=== PATIENT | male | born 1955 | race African-American/Black ===

== ENCOUNTER 2020-04-27 15:56 | Inpatient (IN) | payer OTHER ==
--- NOTE | 2020-04-27 16:25 | PDOC ---
History of Present Illness - History of Present Illness Initial Comments: Pt is a 64yo M with PMH ESRD on HD MWF, HLD, GERD, HTN, nonverbal, on trach who was sent from [facility] for anemia. Pt's H&H was low today during dialysis. He had one hour left of dialysis before he was sent here. Spoke with patients daughter - Pt was hospitalized for Covid on December 20 at [facility] in [place]. Prior to his admission, he was otherwise healthy, with PMH of HTN. During his hospital course, he developed sepsis, multiple strokes, and ESRD requiring HD. Pt's daughter denies hx of anemia, history of GI bleeds. She states that he required a transfusion while he was at [facility], but was unable to state the reason. PMH: see above Meds: see chart Allergies: NKDA Review of Systems: unable to perform Physical Exam General: in no acute distress Head: normocephalic, atraumatic Eyes: anicteric sclera, conjunctiva clear ENT: Auricles normal inspection, nares patent, OG tube in place Neck: supple, no LAD, JVD or masses Lung: equal breath sounds b/l, CTA b/l, no crackles, wheezes Heart: RRR, normal S1, S2, no murmurs, rubs, gallops Abdomen: soft, non tender, normoactive bowel sounds Extremities: warm, well perfused, 2+ radial pulses Neuro: non-verbal at baseline Skin: warm, dry, no rashes or lesions noted <Vicenta Randall - Last Filed: 04/27/20 22:34> <Anmol Hickey - Last Filed: 05/02/20 12:37> - General Stated Complaint: RESPIRATORY Time Seen by Provider: 04/27/20 16:20 Past History <Vicenta Randall - Last Filed: 04/27/20 22:34> <Anmol Hickey - Last Filed: 05/02/20 12:37> - Medical History Allergies/Adverse Reactions: Allergies Allergy/AdvReac Type Severity Reaction Status Date / Time No Known Allergies Allergy Verified 04/27/20 17:19 Home Medications: Ambulatory Orders Acetaminophen [Tylenol] 650 mg GT Q6H PRN 04/27/20 Albuterol 2.5/Ipratropium 0.5 [Duoneb -] 1 neb IH QID 04/27/20 Atorvastatin Ca [Lipitor] 40 mg GT HS 04/27/20 Calcium Acetate 667 mg GT TID 04/27/20 Esomeprazole Magnesium [Nexium 24Hr] 40 mg GT DAILY 04/27/20 Levetiracetam 500 mg GT DAILY 04/27/20 Levetiracetam [Spritam] 250 mg GT 04/27/20 Metoprolol Tartrate [Lopressor -] 12.5 mg GT BID 04/27/20 Midodrine HCl 10 mg GT TID 04/27/20 Polyethylene Glycol 3350 [Clearlax] 17 gm GT DAILY 04/27/20 Sennosides [Senna] 17.2 mg GT HS 04/27/20 *Physical Exam - Vital Signs Last Vital Signs Temp Pulse Resp BP Pulse Ox 22 H 04/27/20 16:05 <Vicenta Randall - Last Filed: 04/27/20 22:34> - Vital Signs Last Vital Signs Temp Pulse Resp BP Pulse Ox 97.4 F L 101 H 22 H 171/77 H 100 05/02/20 10:00 05/02/20 10:00 05/02/20 10:00 05/02/20 10:00 05/02/20 10:00 <Anmol Hickey - Last Filed: 05/02/20 12:37> ED Treatment Course - LABORATORY CBC & Chemistry Diagram: 04/27/20 16:22 04/27/20 18:43 <Vicenta Randall - Last Filed: 04/27/20 22:34> - LABORATORY CBC & Chemistry Diagram: 05/02/20 10:50 05/02/20 09:00 - ADDITIONAL ORDERS Additional order review: 04/27/20 16:22 RBC 2.81 L MCV 76.5 L MCHC 30.5 L RDW 18.4 H MPV 6.8 L Neutrophils % 78.9 Lymphocytes % 12.6 Monocytes % 5.5 Eosinophils % 2.5 Basophils % 0.5 - Medications Given in the ED: ED Medications Discontinued Medications Generic Name Dose Route Start Last Admin Trade Name Freq PRN Reason Stop Dose Admin Epoetin Ricky 20,000 unit 05/01/20 08:00 05/01/20 09:25 Procrit - IVPUSH 05/01/20 08:01 20,000 unit ONCE ONE Administration Potassium Chloride 10 meq in 100 mls @ 100 mls/hr 04/27/20 21:30 04/28/20 00:30 Potassium Chloride 10 Meq Premix Ivpb - IVPB 04/28/20 00:29 100 mls/hr Q60M HEBERT Administration Piperacillin Sod/Tazobactam 50 mls @ 100 mls/hr 04/27/20 22:30 04/28/20 14:53 Sod 2.25 gm/ Dextrose IVPB 04/28/20 14:59 100 mls/hr Q8H HEBERT Administration Protocol Potassium Chloride 10 meq in 100 mls @ 100 mls/hr 04/28/20 11:15 04/28/20 14:53 Potassium Chloride 10 Meq Premix Ivpb - IVPB 04/28/20 14:14 100 mls/hr Q60M HEBERT Administration Dextrose/Sodium Chloride 40 meq in 1,000 mls @ 50 mls/hr 04/28/20 11:15 04/30/20 11:52 D5-1/2ns+40 Meq Kcl - IV Not Given ASDIR HEBERT Potassium Chloride 10 meq in 100 mls @ 100 mls/hr 04/29/20 11:15 04/29/20 14:31 Potassium Chloride 10 Meq Premix Ivpb - IVPB 04/29/20 13:14 100 mls/hr Q60M HEBERT Administration Iron Sucrose 200 mg/ Sodium 100 mls @ 100 mls/hr 04/29/20 16:10 04/29/20 18:12 Chloride IVPB 04/29/20 17:09 100 mls/hr ONCE ONE Administration Metoprolol Tartrate 12.5 mg 04/28/20 10:00 05/02/20 11:16 Lopressor - GT 12.5 mg BID HEBERT Administration Metoprolol Tartrate 12.5 mg 04/28/20 00:56 04/28/20 01:28 Lopressor - GT 04/28/20 00:57 12.5 mg ONCE ONE Administration Metoprolol Tartrate 12.5 mg 04/30/20 20:01 04/30/20 20:14 Lopressor - PO 04/30/20 20:02 12.5 mg ONCE ONE Administration Metoprolol Tartrate 12.5 mg 05/02/20 11:54 05/02/20 12:30 Lopressor - GT 05/02/20 11:55 12.5 mg ONCE ONE Administration Potassium Chloride 40 meq 04/29/20 13:07 04/29/20 13:48 Potassium Chloride Oral Liquid GT 04/29/20 13:08 Not Given ONCE ONE Potassium Chloride 40 meq 04/30/20 13:45 04/30/20 13:57 Potassium Chloride Oral Liquid PO 04/30/20 13:46 40 meq ONCE ONE Administration <Ruperto,Anmol - Last Filed: 05/02/20 12:37> Medical Decision Making - Medical Decision Making Pt is a 64yo M with PMH ESRD on HD MWF, HLD, GERD, HTN, comatose, on trach who was sent from [facility] for anemia. Vital Signs Period Temp Pulse Resp BP Sys/Pimentel Pulse Ox Last 24 Hr 98.2 F 108 18-22 140/95 100-100 DDx: UGIB, LGIB, anemia Plan: labs, EKG, CXR EKG: HR 106bpm, sinus tachycardia with occasional PVC, NJ 174ms, QRS 92ms, QTc 398ms, nonspecific T wave abnormality CXR: diffuse patchiness on R side 04/27/20 18:17 Hgb 6.6, verbal consent for transfusion obtained from daughter, Trenton Kwon Will transfuse 2U pRBC Repeat BMP, Mg Pending stool occult Laboratory Tests 04/27/20 04/27/20 04/27/20 16:22 16:22 16:22 WBC 12.0 H RBC 2.81 L Hgb 6.6 L* Hct 21.5 L MCV 76.5 L MCH 23.3 L MCHC 30.5 L RDW 18.4 H Plt Count 562 H MPV 6.8 L Absolute Neuts (auto) 9.5 H Neutrophils % 78.9 Lymphocytes % 12.6 Monocytes % 5.5 Eosinophils % 2.5 Basophils % 0.5 Nucleated RBC % 0 PT with INR 12.50 INR 1.06 Sodium 135 L Potassium 3.2 L Chloride 94 L Carbon Dioxide 30 Anion Gap 11 BUN 38.8 H Creatinine 1.7 H Est GFR (CKD-EPI)AfAm 49.00 Est GFR (CKD-EPI)NonAf 42.28 Random Glucose 92 Calcium 9.7 Magnesium Total Bilirubin 0.5 AST 14 L ALT 13 Alkaline Phosphatase 143 H Total Protein 7.8 Albumin 2.2 L Stool Occult Blood Blood Type Antibody Screen Crossmatch 04/27/20 04/27/20 04/27/20 16:22 16:30 18:43 WBC RBC Hgb Hct MCV MCH MCHC RDW Plt Count MPV Absolute Neuts (auto) Neutrophils % Lymphocytes % Monocytes % Eosinophils % Basophils % Nucleated RBC % PT with INR INR Sodium 135 L Potassium 2.7 L* Chloride 95 L Carbon Dioxide 29 Anion Gap 11 BUN 40.1 H Creatinine 1.8 H Est GFR (CKD-EPI)AfAm 45.73 Est GFR (CKD-EPI)NonAf 39.46 Random Glucose 83 Calcium 9.5 Magnesium 2.2 Total Bilirubin AST ALT Alkaline Phosphatase Total Protein Albumin Stool Occult Blood Blood Type AB POSITIVE AB POSITIVE Antibody Screen Negative Crossmatch See Detail 04/27/20 18:59 WBC RBC Hgb Hct MCV MCH MCHC RDW Plt Count MPV Absolute Neuts (auto) Neutrophils % Lymphocytes % Monocytes % Eosinophils % Basophils % Nucleated RBC % PT with INR INR Sodium Potassium Chloride Carbon Dioxide Anion Gap BUN Creatinine Est GFR (CKD-EPI)AfAm Est GFR (CKD-EPI)NonAf Random Glucose Calcium Magnesium Total Bilirubin AST ALT Alkaline Phosphatase Total Protein Albumin Stool Occult Blood Negative Blood Type Antibody Screen Crossmatch Stool occult negative; repeat K 2.7; Mg WNL 04/27/20 20:21 Will repeat K Disposition Admit <Vicenta Randall - Last Filed: 04/27/20 22:34> Discharge - Discharge Information Problems reviewed: Yes - Admission Yes <Vicenta Randall - Last Filed: 04/27/20 22:34> <Anmol Hickey - Last Filed: 05/02/20 12:37> - Discharge Information Clinical Impression/Diagnosis: Hypokalemia Anemia Qualifiers: Anemia type: other cause Other causes of anemia: other cause, not classified Qualified Code(s): D64.89 - Other specified anemias
[2020-04-27 17:02] LABS: BASO % 0.5 % (0-2.0); EOS % 2.5 % (0-4.5); HEMATOCRIT 21.5 % (35.4-49); LYMPH % 12.6 % (8-40); MCH 23.3 pg (25.7-33.7); MCHC 30.5 g/dl (32.0-35.9); MEAN CELL VOLUME 76.5 fl (80-96); MEAN PLT VOLUME 6.8 fl (7.5-11.1); MONO % 5.5 % (3.8-10.2); NEUT % 78.9 % (42.8-82.8); PLATELET COUNT 562 K/MM3 (134-434); RBC 2.81 M/mm3 (4.00-5.60); RDW 18.4 % (11.9-15.9)
[2020-04-27 17:05] LABS: HEMOGLOBIN 6.6 GM/dL (11.7-16.9)
[2020-04-27 17:10] LABS: INR 1.06 (0.83-1.09); PROTHROMBIN TIME (PATIENT) 12.5 SEC (9.7-13.0)
[2020-04-27 17:14] LABS: ALBUMIN 2.2 g/dl (3.4-5.0); BILIRUBIN,TOTAL 0.5 mg/dL (0.2-1); BLOOD UREA NITROGEN 38.8 mg/dL (7-18); CALCIUM 9.7 mg/dL (8.5-10.1); CREATININE 1.7 mg/dL (0.55-1.3); POTASSIUM 3.2 mmol/L (3.5-5.1); TOT PROT 7.8 g/dl (6.4-8.2)
--- NOTE | 2020-04-27 17:31 | PDOC ---
Attending Attestation - Resident Resident Name: Donna Randalla - ED Attending Attestation I have performed the following: I have examined & evaluated the patient, The case was reviewed & discussed with the resident, I agree w/resident's findings & plan, Exceptions are as noted - HPI HPI: 04/27/20 17:45 64y M hx of nathaniel MENDOZA trach/PEG presents c/b multiple strokes, renal failure (MWF, missed today) for evaluation of anemia. history limited due to pt condition. - Physicial Exam PE: 04/27/20 17:54 GENERAL: The patient is in no distress HEAD: Normocephalic, atraumatic. ENT: trach in place NECK: Normal range of motion, supple LUNGS: Breath sounds equal, clear to auscultation bilaterally. HEART: Regular rate and rhythm, ABDOMEN: Soft, nontender, No guarding, no rebound. No CVA tenderness - Medical Decision Making 04/27/20 17:54 consented for tranfusion from pts daughter pts hg 6.6 will transfuse Heart Score/ECG Review - ECG Impressions Comment:: 04/27/20 17:58 Twelve-lead EKG was performed and reviewed by me. There is normal sinus rhythm with rate of 106 pvcs present nospecific twi Discharge - Discharge Information Problems reviewed: Yes Clinical Impression/Diagnosis: Hypokalemia Anemia Qualifiers: Anemia type: other cause Other causes of anemia: other cause, not classified Qualified Code(s): D64.89 - Other specified anemias - Follow up/Referral - Patient Discharge Instructions - Post Discharge Activity
[2020-04-27 19:34] LABS: BLOOD UREA NITROGEN 40.1 mg/dL (7-18); CALCIUM 9.5 mg/dL (8.5-10.1); CREATININE 1.8 mg/dL (0.55-1.3); MAGNESIUM 2.2 mg/dL (1.8-2.4)
--- NOTE | 2020-04-27 19:51 | HP ---
Admitting History and Physical - Primary Care Physician PCP: Charlie Pizano ([facility]) - Admission Chief Complaint: Abnormal Lab Value History of Present Illness: This is a 64 y/o male from [facility] with a PMHx of ESRD (HD- MWF), Chronic Respiratory Failure s/p Trach- Vent dependent, CVA, HTN, HLD, GERD, Pneumonia, Sepsis, Covid + (12/21/19). Who presents to the ED for low H/H x 2 days. Per [place] records patient's Hgb was 7.5. Patient is trach- vent dependent (non-verbal) unable to provide HPI. In the ED Hgb was 6.6, Stool Occult negative. PRBCs x2 o rdered. History Source: Transfer Record Limitations to Obtaining History: Clinical Condition - Past Medical History Cardiovascular: Yes: HTN, Hyperlipdemia Pulmonary: Yes: O2 Dependent (Trach- Vent), Pneumonia Gastrointestinal: Yes: GERD Renal/: Yes: Renal Failure, Hemodialysis Infectious Disease: Yes: Other (Covid) - Past Surgical History Additional Past Surgical History: Tracheotomy - Advance Directives Advance Directives: Yes: Health Care Proxy - Smoking History Smoking history: Unknown if ever smoked - Alcohol/Substance Use Hx Alcohol Use: No (Unknown hx) History of Substance Use: reports: None (Unknown hx) - Social History Usual Living Arrangement: Yes: Senior Care ADL: Support Services History of Recent Travel: No Home Medications - Allergies Allergies/Adverse Reactions: Allergies Allergy/AdvReac Type Severity Reaction Status Date / Time No Known Allergies Allergy Verified 04/27/20 17:19 - Home Medications Home Medications: Ambulatory Orders Acetaminophen [Tylenol] 650 mg GT Q6H PRN 04/27/20 Albuterol 2.5/Ipratropium 0.5 [Duoneb -] 1 neb IH QID 04/27/20 Atorvastatin Ca [Lipitor] 40 mg GT HS 04/27/20 Calcium Acetate 667 mg GT TID 04/27/20 Esomeprazole Magnesium [Nexium 24Hr] 40 mg GT DAILY 04/27/20 Levetiracetam 500 mg GT DAILY 04/27/20 Levetiracetam [Spritam] 250 mg GT 04/27/20 Metoprolol Tartrate [Lopressor -] 12.5 mg GT BID 04/27/20 Midodrine HCl 10 mg GT TID 04/27/20 Polyethylene Glycol 3350 [Clearlax] 17 gm GT DAILY 04/27/20 Sennosides [Senna] 17.2 mg GT HS 04/27/20 Family Medical History Family History: Unable to Obtain Review of Systems Unable to obtain ROS, reason: Clinical Condition Physical Examination Vital Signs: Vital Signs Temperature 98.7 F 04/27/20 19:16 Pulse Rate 106 H 04/27/20 19:16 Respiratory Rate 20 04/27/20 19:16 Blood Pressure 153/82 04/27/20 19:16 O2 Sat by Pulse Oximetry (%) 100 04/27/20 19:21 Constitutional: Yes: Well Nourished, Obese, Other (Trach- vent dependent Opens eyes non-verbal) Eyes: Yes: Conjunctiva Clear, PERRL HENT: Yes: Atraumatic, Normocephalic Neck: Yes: Supple, Other (Trach-vent dependent) Cardiovascular: Yes: Tachycardia, Pulse Irregular, S1, S2 Respiratory: Yes: Diminished (bases), Rhonchi (scattered), Other (Trach- Vent) Gastrointestinal: Yes: Soft, Abdomen, Obese, Other (peg noted to upper abd- intact) ...Rectal Exam: Yes: Guaiac Negative Breast(s): Yes: WNL Extremities: Yes: WNL Edema: LLE: 1+, RLE: 1+ Peripheral Pulses WNL: Yes Integumentary: Yes: Pressure Ulcer (sacrum) Neurological: Yes: Aphasia, Pre-Existing Deficit Psychiatric: Yes: Other (eyes open- non-verbal) Labs: CBC, BMP 04/27/20 16:22 04/27/20 18:43 Imaging - Results Chest X-ray: Image Reviewed EKG: Image Reviewed Problem List - Problems (1) Anemia Code(s): D64.9 - ANEMIA, UNSPECIFIED Qualifiers: Anemia type: other cause Other causes of anemia: other cause, not classified Qualified Code(s): D64.89 - Other specified anemias (2) Pneumonia Code(s): J18.9 - PNEUMONIA, UNSPECIFIED ORGANISM (3) Chronic respiratory failure Code(s): J96.10 - CHRONIC RESPIRATORY FAILURE, UNSP W HYPOXIA OR HYPERCAPNIA (4) ESRD (end stage renal disease) on dialysis Code(s): N18.6 - END STAGE RENAL DISEASE; Z99.2 - DEPENDENCE ON RENAL DIALYSIS (5) HTN (hypertension) Code(s): I10 - ESSENTIAL (PRIMARY) HYPERTENSION (6) HLD (hyperlipidemia) Code(s): E78.5 - HYPERLIPIDEMIA, UNSPECIFIED (7) GERD (gastroesophageal reflux disease) Code(s): K21.9 - GASTRO-ESOPHAGEAL REFLUX DISEASE WITHOUT ESOPHAGITIS (8) Encounter for screening laboratory testing for COVID-19 virus Code(s): Z11.59 - ENCOUNTER FOR SCREENING FOR OTHER VIRAL DISEASES Assessment/Plan This is a 64 y/o male from [facility] with a PMHx of ESRD (HD- MWF), Chronic Respiratory Failure s/p Trach- Vent dependent, CVA, HTN, HLD, GERD, Pneumonia, Sepsis, Covid + (12/21/19). Admitted to M/S Vent floor for Anemia, Pneumonia, Hypokalemia, ESRD, Chronic Respiratory Failure for further evaluation of their emergent condition. Plan: Admit Vent floor 1. Pulm Chronic Respiratory Failure Pneumonia Will treat for VAP vs HAP [id number] 3, severe risk Continue NH vent settings ABG-pending Appreciate Pulmonology consult Appreciate ID consult Chest Xray- reviewed EKG- reviewed Blood Cultures-pending Sputum Culture-pending Will start on Zosyn renal dosing Monitor CBC Monitor vitals Maintain MAP> 65 Aspiration Precautions 2. Heme Anemia Likely due to GI Bleed vs ESRD PRBCs ordered in ED, transfusing Monitor CBC, CMP Consider Hematology consult Monitor vitals 3. GI GI Bleed GERD Appreciate GI consult Stool Occult + Hgb 6.6 PRBCs ordered Monitor CBC Monitor vitals NPO PPI 4.Cardiology Hypokalemia HTN HLD Replete K- with K riders x3 Monitor CMP EKG-reviewed Continue home meds with parameters 5. Renal ESRD HD- MWF Appreciate Nephrology consult- HD Management Monitor CMP Avoid nephrotoxic meds 6. Neuro CVA Neurochecks Fall Precautions Continue home meds FEN Replete lytes NPO- no tube feeding 2/2 GIB DVT ppx OOB SCDs Hold AC 2/2 GIB, Anemia Dispo: Requires Inpatient Care Visit type - Emergency Visit Emergency Visit: Yes ED Registration Date: 04/27/20 Care time: The patient presented to the Emergency Department on the above date and was hospitalized for further evaluation of their emergent condition. - New Patient This patient is new to me today: Yes Date on this admission: 04/27/20 - Critical Care Critical Care patient: No
[2020-04-27 19:59] LABS: POTASSIUM 2.7 mmol/L (3.5-5.1)
[2020-04-27] MEDS ORDERED: KCL 10 MEQ IVPB 10 MEQ/100 ML INFUS.BAG IVPB ONE ×2 (22:12→23:25)
[2020-04-27] MEDS: KCL 10 MEQ IVPB 10 MEQ/100 ML INFUS.BAG IVPB SCH ×2 (22:16→23:26)
[2020-04-27] MEDS ORDERED: PIPERACILLIN/TAZOB 2.25 GM 2.25 GM/50 ML BAG IVPB ONE (23:30)
[2020-04-28] MEDS: PIPERACILLIN/TAZOB 2.25 GM 2.25 GM in DEXTROSE 5%-WATER - 50 ML IVPB SCH ×4 (00:30→22:41)
[2020-04-28] MEDS: KCL 10 MEQ IVPB 10 MEQ/100 ML INFUS.BAG IVPB SCH ×4 (00:30→14:53)
[2020-04-28] MEDS ORDERED: KCL 10 MEQ IVPB 10 MEQ/100 ML INFUS.BAG IVPB ONE (00:31)
[2020-04-28] MEDS ORDERED: METOPROLOL TARTRATE 25 MG TABLET (FP) GT ONE (00:56)
[2020-04-28] MEDS ORDERED: DEXTROSE 5%-WATER - 50 ML IVPB ONE ×3 (05:51→22:39)
[2020-04-28] MEDS ORDERED: PIPERACILLIN/TAZOBACTAM 2.25 GM VIAL IVPB ONE ×3 (05:51→22:39)
[2020-04-28 07:56] LABS: BASO % 0.6 % (0-2.0); EOS % 4.1 % (0-4.5); HEMATOCRIT 25.1 % (35.4-49); LYMPH % 12.4 % (8-40); MEAN PLT VOLUME 6.5 fl (7.5-11.1); MONO % 11.4 % (3.8-10.2); NEUT % 71.5 % (42.8-82.8); PLATELET COUNT 476 K/MM3 (134-434); RBC 3.22 M/mm3 (4.00-5.60); RDW 18.7 % (11.9-15.9); WHITE BLOOD COUNT 9.6 K/mm3 (4.0-10.0)
[2020-04-28 08:23] LABS: ALBUMIN 1.9 g/dl (3.4-5.0); BILIRUBIN,TOTAL 0.8 mg/dL (0.2-1); BLOOD UREA NITROGEN 45.1 mg/dL (7-18); CALCIUM 9.6 mg/dL (8.5-10.1); CREATININE 2.1 mg/dL (0.55-1.3); TOT PROT 6.8 g/dl (6.4-8.2)
[2020-04-28 09:10] LABS: POTASSIUM 2.9 mmol/L (3.5-5.1)
--- NOTE | 2020-04-28 11:09 | PN ---
Progress Note, Physician History of Present Illness: 64 y/o male from [facility] with a PMHx of ESRD (HD- MWF), Chronic Respiratory Failure s/p Trach- Vent dependent, CVA, HTN, HLD, GERD, Pneumonia, Sepsis, Covid + (12/21/19). Who presents to the ED for low H/H x 2 days. Per [place] records patient's Hgb was 7.5. Patient is trach- vent dependent (non-verbal) unable to provide HPI. In the ED Hgb was 6.6, Stool Occult negative. PRBCs x2 ordered.Received 1 and 1/2 units - Current Medication List Current Medications: Active Medications Atorvastatin Calcium (Lipitor -) 40 mg GT HS HEBERT Piperacillin Sod/Tazobactam (Sod 2.25 gm/ Dextrose) 50 mls @ 100 mls/hr IVPB Q8H-IV HEBERT; Protocol Piperacillin Sod/Tazobactam (Sod 2.25 gm/ Dextrose) 50 mls @ 100 mls/hr IVPB Q8H HEBERT; Protocol Stop: 04/28/20 14:59 Last Admin: 04/28/20 06:14 Dose: 100 mls/hr Documented by: Dextrose/Sodium Chloride (D5-1/2ns+40 Meq Kcl -) 40 meq in 1,000 mls @ 83 mls/hr IV ASDIR HEBERT Potassium Chloride (Potassium Chloride 10 Meq Premix Ivpb -) 10 meq in 100 mls @ 100 mls/hr IVPB Q60M HEBERT Stop: 04/28/20 14:14 Levetiracetam (Keppra Oral Solution -) 500 mg GT DAILY@0600 [facility] Levetiracetam (Keppra Oral Solution -) 250 mg GT TUTHSA@1800 [facility] Metoprolol Tartrate (Lopressor -) 12.5 mg GT BID [facility] - Objective Vital Signs: Vital Signs Temperature 97.9 F 04/28/20 04:45 Pulse Rate 107 H 04/28/20 08:39 Respiratory Rate 20 04/28/20 08:39 Blood Pressure 124/65 04/28/20 04:45 O2 Sat by Pulse Oximetry (%) 99 04/28/20 08:39 Cardiovascular: Yes: S1 Respiratory: Yes: Mechanically Ventilated Gastrointestinal: Yes: Normal Bowel Sounds, Soft Labs: CBC, BMP 04/28/20 07:05 04/28/20 07:05 INR, PTT INR 1.06 (0.83-1.09) 04/27/20 16:22 Problem List - Problems (1) Chronic respiratory failure Assessment/Plan: Appreciate Pulmonology consult Appreciate ID consult Chest Xray- reviewed EKG- reviewed Blood Cultures-pending Sputum Culture-pending Zosyn renal dosing vent setting pulm consult Code(s): J96.10 - CHRONIC RESPIRATORY FAILURE, UNSP W HYPOXIA OR HYPERCAPNIA (2) Anemia Assessment/Plan: Likely due to GI Bleed and ESRD PRBCs Monitor CBC, CMP Consider Hematology consult Monitor vitals Appreciate GI consult Stool Occult + Hgb 6.6 NPO PPI Code(s): D64.9 - ANEMIA, UNSPECIFIED Qualifiers: Anemia type: other cause Other causes of anemia: other cause, not classified Qualified Code(s): D64.89 - Other specified anemias (3) HTN (hypertension) Code(s): I10 - ESSENTIAL (PRIMARY) HYPERTENSION (4) ESRD (end stage renal disease) on dialysis Assessment/Plan: gentle hydration since npo replace k Code(s): N18.6 - END STAGE RENAL DISEASE; Z99.2 - DEPENDENCE ON RENAL DIALYSIS
[2020-04-28] MEDS ORDERED: D5-1/2NS+40 MEQ KCL - 40 MEQ/1,000 ML INFUS.BAG IV SCH (11:15)
--- NOTE | 2020-04-28 11:29 | PN ---
Progress Note (short form) - Note Progress Note: PULMONARY CONSULTATION DICTATED 04/28/20 IMP CHRONIC RESPIRATORY FAILURE H/O COVID 19 H/O PNEUMONIA ANEMIA ESRD ON HD H/O CVA HTN HLD PLAN VENT SUPPORT ON A MODE INHALED BRONCHODILATORS ABX NORMAL TRANSFUSION THRESHOLD MONITOR H+H,LYTES F/U CHEST X-RAYS HD PER RENAL DR LAMAR
[2020-04-28] MEDS: D5-1/2NS+40 MEQ KCL - 40 MEQ/1,000 ML INFUS.BAG IV SCH (12:09)
[2020-04-28] MEDS: levETIRAcetam 500 MG/5 ML ORAL SOLUTION (UNIT-DOSE CUPS) GT SCH ×2 (13:01→17:24)
[2020-04-28] MEDS: METOPROLOL TARTRATE 25 MG TABLET (FP) GT SCH ×2 (13:02→22:41)
--- NOTE | 2020-04-28 13:23 | EKG ---
Test Reason : Blood Pressure : / mmHG Vent. Rate : 106 BPM Atrial Rate : 106 BPM P-R Int : 174 ms QRS Dur : 092 ms QT Int : 300 ms P-R-T Axes : 045 009 133 degrees QTc Int : 398 ms SINUS TACHYCARDIA WITH OCCASIONAL PREMATURE VENTRICULAR COMPLEXES NONSPECIFIC T WAVE ABNORMALITY ABNORMAL ECG NO PREVIOUS ECGS AVAILABLE Confirmed by Brittany Mckeon ([id number]) on 04/28/2020 1:23:18 PM Referred By: Confirmed By:Brittany Mckeon
[2020-04-28 13:33] LABS: EPI CELLS >36 /uL (0-25.1); HYALINE CASTS 1 /uL (0-3.1); PH,URINE 5.5 (5.0-8.0); URINE APPEARANCE TURBID; URINE BACTERIA 9720 /uL (0-1359); URINE BILIRUBIN NEGATIVE (NEGATIVE); URINE COLOR DK YELLOW; URINE GLUCOSE (UA) NEGATIVE (NEGATIVE); URINE KETONE NEGATIVE (NEGATIVE); URINE LEUK ESTERASE 3+ (NEGATIVE); URINE NITRITE NEGATIVE (NEGATIVE); URINE PROTEIN 3+ (NEGATIVE); URINE UROBILINOGEN 0.2 mg/dL (0.2-1.0); URINE WBC 13218 /uL (0-25.8)
--- NOTE | 2020-04-28 13:45 | CON.NEP ---
Consult Consult Specialty:: Nephrology Referred by:: Medicine Reason for Consultation:: ESRD on HD - History of Present Illness Chief Complaint: Low Hgb History of Present Illness: This is a 64 year old male with history of ESRD on HD (MWF), chronic respiratory failure on vent, CVA, hypertension presented from [facility] with low Hgb levels and admitted for acute on chronic anmeia requiring blood transfusion. Seen and examined at the bedside. Last dialysis was yesterday but treatment was cut short due to low Hgb levels. Pt is awake and alert on the vent but not able to provide history. s/p 1.5 PRBC units transfused overnight. - History Source History Provided By: Medical Record Limitations to Obtaining History: Clinical Condition - Past Medical History Cardio/Vascular: Yes: HTN, Hyperlipdemia Pulmonary: Yes: O2 Dependent (Trach- Vent), Pneumonia Gastrointestinal: Yes: GERD Renal/: Yes: Renal Failure, Hemodialysis Infectious Disease: Yes: Other (Covid) - Alcohol/Substance Use Hx Alcohol Use: No (Unknown hx) History of Substance Use: reports: None (Unknown hx) - Smoking History Smoking history: Unknown if ever smoked - Social History ADL: Support Services History of Recent Travel: No Home Medications - Allergies Allergies/Adverse Reactions: Allergies Allergy/AdvReac Type Severity Reaction Status Date / Time No Known Allergies Allergy Verified 04/27/20 17:19 - Home Medications Home Medications: Ambulatory Orders Acetaminophen [Tylenol] 650 mg GT Q6H PRN 04/27/20 Albuterol 2.5/Ipratropium 0.5 [Duoneb -] 1 neb IH QID 04/27/20 Atorvastatin Ca [Lipitor] 40 mg GT HS 04/27/20 Calcium Acetate 667 mg GT TID 04/27/20 Esomeprazole Magnesium [Nexium 24Hr] 40 mg GT DAILY 04/27/20 Levetiracetam 500 mg GT DAILY 04/27/20 Levetiracetam [Spritam] 250 mg GT 04/27/20 Metoprolol Tartrate [Lopressor -] 12.5 mg GT BID 04/27/20 Midodrine HCl 10 mg GT TID 04/27/20 Polyethylene Glycol 3350 [Clearlax] 17 gm GT DAILY 04/27/20 Sennosides [Senna] 17.2 mg GT HS 04/27/20 Family Medical History Family History: Unable to Obtain Review of Systems Unable to obtain ROS, reason: on vent, nonverbal Nephrology Consult - Height Height: 6 ft 2 in - Weight Weight: 130.635 kg - BMI Body Mass Index (BMI): 36.9 - Lab Results CBC,BMP: CBC, BMP 04/28/20 07:05 04/28/20 07:05 Anion Gap: Anion Gap Anion Gap 13 MMOL/L (8-16) 04/28/20 07:05 - Imaging Chest X-ray: Report Reviewed - Physical Examination Vital Signs: Vital Signs Temperature 98.7 F 04/28/20 10:00 Pulse Rate 103 H 04/28/20 10:00 Respiratory Rate 21 H 04/28/20 11:49 Blood Pressure 172/101 H 04/28/20 10:00 O2 Sat by Pulse Oximetry (%) 100 04/28/20 11:49 Constitutional: Yes: No Distress, Calm HENT: Yes: Atraumatic Neck: Yes: Supple Cardiovascular: Yes: Regular Rate and Rhythm Respiratory: Yes: Regular, Diminished, Mechanically Ventilated Gastrointestinal: Yes: Soft, Abdomen, Obese Access for Hemodialysis: Permacath Extremities: No: Cyanosis Edema: Yes Neurological: Yes: Alert Assessment/Plan 64 year old male with history of ESRD on HD (MWF), chronic respiratory failure on vent, CVA, hypertension presented from [facility] with low Hgb levels and admitted for acute on chronic anmeia requiring blood transfusion 1. Acute on chronic anemia 2. ESRD on HD 3. Hypokalemia 4. Chronic respiratory failure on vent 5. Hypertension Hgb improved s/p PRBC transfusion Goal is To keep Hgb ~8 for now, ideally 10-11 Anemia work up as per primary team will continue LUCY/Venofer with Hd as needed No acute need for dialysis today despite abridged treatment yesterday Next planned dialysis is Thursday K supplemented, check repeat level in the afternoon Vent support Amlodipine added for additional blood pressure control Thank you Selvin Gamino DO
--- NOTE | 2020-04-28 13:49 | CONS ---
DATE OF CONSULTATION: 04/28/2020 REFERRING PHYSICIAN: Paul Landin MD HISTORY: History obtained from medical record and chart. The patient is a 64-year-old male with past medical history of chronic respiratory failure status post tracheostomy, ventilator dependent, on assist control; end-stage renal disease on hemodialysis 3 times weekly; history of CVA; hypertension; hyperlipidemia; GERD; pneumonia; sepsis; and COVID-19 on December 21, 2019, was transferred to [facility] on April 27 secondary to low hemoglobin and hematocrit for 2 days. According to the custodial records, her hemoglobin was 7.5. In the ER she was noted to have a hemoglobin 6.6 and subsequently transfused 2 units of packed red blood cells. On admission, he was also noted to have possible infiltrate on chest x-ray. PAST MEDICAL HISTORY: Again includes end-stage renal disease on hemodialysis; chronic respiratory failure status post tracheostomy, ventilator; CVA; hypertension; hyperlipidemia; GERD; pneumonia; sepsis; and COVID-19. CURRENT MEDICATIONS: Include Zosyn, Keppra, Lopressor, sodium chloride, Norvasc, Lipitor, and potassium chloride. REVIEW OF SYSTEMS: Unable to obtain. PHYSICAL EXAMINATION: General: The patient is a well-developed, well-nourished male, drowsy, on ventilatory status post, in no acute distress. Vital Signs: He is afebrile. Blood pressure is 172/101. Heart rate is 103. Respiratory rate is 21. O2 saturation is 100% on 40% FiO2 and assist control of 20, of 450 and PEEP of 5. HEENT: Exam is normocephalic, atraumatic. Neck: Supple. Tracheostomy is patent. Heart: Regular, S1, S2. Chest: Few scattered bilateral rhonchi. Abdomen: Soft. Bowel sounds are positive. Extremities: No cyanosis or edema. LABORATORY: WBCs 9.6, hemoglobin 8, hematocrit is 25.1. BUN 45, creatinine 2.1, potassium 2.9. INR is 1.06. Chest x-ray with bibasilar atelectatic changes. IMPRESSION: 1. Chronic respiratory failure on ventilatory support. 2. History of COVID-19. 3. History of pneumonia. 4. Anemia. 5. End-stage renal disease on hemodialysis. 6. History of a cerebrovascular accident. 7. Hypertension. 8. Hyperlipidemia. PLAN: Ventilator support on assist control mode, inhaled bronchodilators, antibiotics as per ID, normal transfusion threshold. Monitor electrolytes, hemoglobin and hematocrit. Follow up chest x-rays and hemodialysis as per renal. AZUL LAMAR M.D. JESUS/[id number]
[2020-04-28 14:04] LABS: URINE RBC 164.8 /uL (0-23.9); YEAST NONE SEEN (NEGATIVE)
[2020-04-28] MEDS: amLODIPine BESYLATE 5 MG TABLET (FP) GT SCH (14:52)
--- NOTE | 2020-04-28 15:22 | CON.ID ---
Consult Referred by:: dr mccarthy Reason for Consultation:: possible pneumonia - History of Present Illness Chief Complaint: sent to ED with anemia History of Present Illness: 64 yo man NHR with chronic resp failure on vent vai trach sent to ED with anemia noted to have bilateral lower lobe infiltrates and leukocytosis asked to see for possible pneumonia patient unable to give history recent covid 19 infection 12/21/19 - History Source History Provided By: Medical Record Limitations to Obtaining History: Clinical Condition - Past Medical History Cardio/Vascular: Yes: HTN, Hyperlipdemia Pulmonary: Yes: O2 Dependent (Trach- Vent), Pneumonia Gastrointestinal: Yes: GERD Renal/: Yes: Renal Failure, Hemodialysis Infectious Disease: Yes: Other (Covid) - Past Surgical History Additional Surgical History: tracheostomy - Alcohol/Substance Use Hx Alcohol Use: No (Unknown hx) History of Substance Use: reports: None (Unknown hx) - Smoking History Smoking history: Unknown if ever smoked - Social History Usual Living Arrangement: [facility] ADL: Support Services History of Recent Travel: No Home Medications - Allergies Allergies/Adverse Reactions: Allergies Allergy/AdvReac Type Severity Reaction Status Date / Time No Known Allergies Allergy Verified 04/27/20 17:19 - Home Medications Home Medications: Ambulatory Orders Acetaminophen [Tylenol] 650 mg GT Q6H PRN 04/27/20 Albuterol 2.5/Ipratropium 0.5 [Duoneb -] 1 neb IH QID 04/27/20 Atorvastatin Ca [Lipitor] 40 mg GT HS 04/27/20 Calcium Acetate 667 mg GT TID 04/27/20 Esomeprazole Magnesium [Nexium 24Hr] 40 mg GT DAILY 04/27/20 Levetiracetam 500 mg GT DAILY 04/27/20 Levetiracetam [Spritam] 250 mg GT 04/27/20 Metoprolol Tartrate [Lopressor -] 12.5 mg GT BID 04/27/20 Midodrine HCl 10 mg GT TID 04/27/20 Polyethylene Glycol 3350 [Clearlax] 17 gm GT DAILY 04/27/20 Sennosides [Senna] 17.2 mg GT HS 04/27/20 Family Medical History Family History: Unable to Obtain Review of Systems Unable to obtain ROS, reason: unable to obtain - Review of Systems Constitutional: reports: No Symptoms. denies: Chills, Diaphoresis, Fever Physical Exam Vital Signs: Vital Signs Temperature 98.0 F 04/28/20 15:00 Pulse Rate 93 H 04/28/20 15:00 Respiratory Rate 21 H 04/28/20 15:00 Blood Pressure 154/96 04/28/20 15:00 O2 Sat by Pulse Oximetry (%) 98 04/28/20 15:00 Constitutional: Yes: Well Nourished, No Distress, Calm Eyes: Yes: Conjunctiva Clear HENT: Yes: Atraumatic, Normocephalic Neck: Yes: Other (trach to vent) Cardiovascular: Yes: Regular Rate and Rhythm Respiratory: Yes: Regular, Other (left CW permacath) Gastrointestinal: Yes: Normal Bowel Sounds, Soft, Other (GT) ...Rectal Exam: Yes: Deferred Renal/: Yes: Metzger Present (placed in hospital) Extremities: Yes: WNL Edema: No Wound/Incision: Yes: Other (stage 4 sacral ulcer clean) Labs: CBC, BMP 04/28/20 07:05 04/28/20 07:05 Imaging - Results Chest X-ray: Report Reviewed, Image Reviewed Problem List - Problems (1) Anemia Code(s): D64.9 - ANEMIA, UNSPECIFIED Qualifiers: Anemia type: other cause Other causes of anemia: other cause, not classified Qualified Code(s): D64.89 - Other specified anemias (2) Chronic respiratory failure Code(s): J96.10 - CHRONIC RESPIRATORY FAILURE, UNSP W HYPOXIA OR HYPERCAPNIA (3) Pneumonia Code(s): J18.9 - PNEUMONIA, UNSPECIFIED ORGANISM (4) History of 2019 novel coronavirus disease (COVID-19) Code(s): Z86.19 - PERSONAL HISTORY OF OTHER INFECTIOUS AND PARASITIC DISEASES (5) ESRD (end stage renal disease) on dialysis Code(s): N18.6 - END STAGE RENAL DISEASE; Z99.2 - DEPENDENCE ON RENAL DIALYSIS Assessment/Plan f/u cultures continue zosyn will review cxray with radiology anemia per hospitalist
[2020-04-28 22:02] LABS: BASO % 0.8 % (0-2.0); EOS % 5.5 % (0-4.5); HEMATOCRIT 22.4 % (35.4-49); HEMOGLOBIN 7.3 GM/dL (11.7-16.9); LYMPH % 13.4 % (8-40); MCH 24.9 pg (25.7-33.7); MCHC 32.5 g/dl (32.0-35.9); MEAN CELL VOLUME 76.6 fl (80-96); MEAN PLT VOLUME 6.2 fl (7.5-11.1); MONO % 7.2 % (3.8-10.2); NEUT % 73.1 % (42.8-82.8); PLATELET COUNT 480 K/MM3 (134-434); RBC 2.92 M/mm3 (4.00-5.60); RDW 18.8 % (11.9-15.9)
[2020-04-28 22:15] LABS: BLOOD UREA NITROGEN 53.3 mg/dL (7-18); CALCIUM 9.7 mg/dL (8.5-10.1); CREATININE 2.5 mg/dL (0.55-1.3); POTASSIUM 3.3 mmol/L (3.5-5.1)
[2020-04-28] MEDS ORDERED: PT OWN MED DRAWER 7, Y5N ONE (22:39)
[2020-04-28] MEDS: ATORVASTATIN CA 40 MG TABLET (FP) GT SCH (22:41)
[2020-04-29] MEDS ORDERED: PIPERACILLIN/TAZOBACTAM 2.25 GM VIAL IVPB ONE ×3 (02:24→17:28)
[2020-04-29] MEDS ORDERED: DEXTROSE 5%-WATER - 50 ML IVPB ONE ×3 (02:24→17:28)
[2020-04-29] MEDS: levETIRAcetam 500 MG/5 ML ORAL SOLUTION (UNIT-DOSE CUPS) GT SCH (05:48)
[2020-04-29] MEDS: PIPERACILLIN/TAZOB 2.25 GM 2.25 GM in DEXTROSE 5%-WATER - 50 ML IVPB SCH ×3 (05:48→17:29)
--- NOTE | 2020-04-29 07:10 | PN ---
Progress Note, Physician History of Present Illness: pulmonary comfortable,on vent support ac mode - Current Medication List Current Medications: Active Medications Amlodipine Besylate (Norvasc -) 5 mg GT DAILY [facility] Last Admin: 04/28/20 14:52 Dose: 5 mg Documented by: Atorvastatin Calcium (Lipitor -) 40 mg GT HS [facility] Last Admin: 04/28/20 22:41 Dose: 40 mg Documented by: Piperacillin Sod/Tazobactam (Sod 2.25 gm/ Dextrose) 50 mls @ 100 mls/hr IVPB Q8H-IV [facility]; Protocol Last Admin: 04/29/20 05:48 Dose: 100 mls/hr Documented by: Dextrose/Sodium Chloride (D5-1/2ns+40 Meq Kcl -) 40 meq in 1,000 mls @ 50 mls/hr IV ASDIR [facility] Last Admin: 04/28/20 12:09 Dose: 50 mls/hr Documented by: Levetiracetam (Keppra Oral Solution -) 500 mg GT DAILY@0600 [facility] Last Admin: 04/29/20 05:48 Dose: 500 mg Documented by: Levetiracetam (Keppra Oral Solution -) 250 mg GT TUTHSA@1800 [facility] Last Admin: 04/28/20 17:24 Dose: 250 mg Documented by: Metoprolol Tartrate (Lopressor -) 12.5 mg GT BID [facility] Last Admin: 04/28/20 22:41 Dose: 12.5 mg Documented by: - Objective Vital Signs: Vital Signs Temperature 98.0 F 04/29/20 06:00 Pulse Rate 102 H 04/29/20 06:00 Respiratory Rate 20 04/29/20 06:00 Blood Pressure 141/93 04/29/20 06:00 O2 Sat by Pulse Oximetry (%) 98 04/29/20 06:00 Constitutional: Yes: Well Nourished, Calm Eyes: Yes: WNL HENT: Yes: WNL Neck: Yes: Supple Cardiovascular: Yes: Regular Rate and Rhythm, S1, S2 Respiratory: Yes: Diminished, Mechanically Ventilated Extremities: Yes: WNL Edema: No Labs: CBC, BMP 04/28/20 21:37 04/28/20 21:37 INR, PTT INR 1.06 (0.83-1.09) 04/27/20 16:22 Problem List - Problems (1) Anemia Code(s): D64.9 - ANEMIA, UNSPECIFIED Qualifiers: Anemia type: other cause Other causes of anemia: other cause, not classified Qualified Code(s): D64.89 - Other specified anemias (2) Chronic respiratory failure Code(s): J96.10 - CHRONIC RESPIRATORY FAILURE, UNSP W HYPOXIA OR HYPERCAPNIA (3) ESRD (end stage renal disease) on dialysis Code(s): N18.6 - END STAGE RENAL DISEASE; Z99.2 - DEPENDENCE ON RENAL DIALYSIS (4) Encounter for screening laboratory testing for COVID-19 virus Code(s): Z11.59 - ENCOUNTER FOR SCREENING FOR OTHER VIRAL DISEASES (5) GERD (gastroesophageal reflux disease) Code(s): K21.9 - GASTRO-ESOPHAGEAL REFLUX DISEASE WITHOUT ESOPHAGITIS (6) HLD (hyperlipidemia) Code(s): E78.5 - HYPERLIPIDEMIA, UNSPECIFIED (7) HTN (hypertension) Code(s): I10 - ESSENTIAL (PRIMARY) HYPERTENSION (8) Pneumonia Code(s): J18.9 - PNEUMONIA, UNSPECIFIED ORGANISM Assessment/Plan IMP CHRONIC RESPIRATORY FAILURE H/O COVID 19 H/O PNEUMONIA ANEMIA ESRD ON HD H/O CVA HTN HLD PLAN VENT SUPPORT ON A MODE INHALED BRONCHODILATORS ABX NORMAL TRANSFUSION THRESHOLD MONITOR H+H,LYTES F/U CHEST X-RAYS HD PER RENAL DR LAMAR
[2020-04-29 08:19] LABS: BASO % 0.7 % (0-2.0); EOS % 6.1 % (0-4.5); HEMATOCRIT 22.5 % (35.4-49); HEMOGLOBIN 7.3 GM/dL (11.7-16.9); LYMPH % 12.6 % (8-40); MCH 25.1 pg (25.7-33.7); MCHC 32.3 g/dl (32.0-35.9); MEAN CELL VOLUME 77.6 fl (80-96); MEAN PLT VOLUME 6.1 fl (7.5-11.1); MONO % 7.7 % (3.8-10.2); NEUT % 72.9 % (42.8-82.8); PLATELET COUNT 449 K/MM3 (134-434); RDW 18.9 % (11.9-15.9); WHITE BLOOD COUNT 9.3 K/mm3 (4.0-10.0)
[2020-04-29 08:52] LABS: ALBUMIN 1.8 g/dl (3.4-5.0); BILIRUBIN,TOTAL 0.5 mg/dL (0.2-1); BLOOD UREA NITROGEN 57.6 mg/dL (7-18); CALCIUM 9.8 mg/dL (8.5-10.1); CREATININE 2.8 mg/dL (0.55-1.3); POTASSIUM 3.1 mmol/L (3.5-5.1); TOT PROT 6.6 g/dl (6.4-8.2)
[2020-04-29] MEDS: amLODIPine BESYLATE 5 MG TABLET (FP) GT SCH (10:37)
[2020-04-29] MEDS: METOPROLOL TARTRATE 25 MG TABLET (FP) GT SCH ×2 (10:37→21:27)
--- NOTE | 2020-04-29 11:07 | PN ---
Progress Note, Physician - Current Medication List Current Medications: Active Medications Amlodipine Besylate (Norvasc -) 5 mg GT DAILY [facility] Last Admin: 04/29/20 10:37 Dose: 5 mg Documented by: Atorvastatin Calcium (Lipitor -) 40 mg GT HS [facility] Last Admin: 04/28/20 22:41 Dose: 40 mg Documented by: Piperacillin Sod/Tazobactam (Sod 2.25 gm/ Dextrose) 50 mls @ 100 mls/hr IVPB Q8H-IV [facility]; Protocol Last Admin: 04/29/20 10:37 Dose: 100 mls/hr Documented by: Dextrose/Sodium Chloride (D5-1/2ns+40 Meq Kcl -) 40 meq in 1,000 mls @ 50 mls/hr IV ASDIR [facility] Last Admin: 04/28/20 12:09 Dose: 50 mls/hr Documented by: Levetiracetam (Keppra Oral Solution -) 500 mg GT DAILY@0600 [facility] Last Admin: 04/29/20 05:48 Dose: 500 mg Documented by: Levetiracetam (Keppra Oral Solution -) 250 mg GT TUTHSA@1800 [facility] Last Admin: 04/28/20 17:24 Dose: 250 mg Documented by: Metoprolol Tartrate (Lopressor -) 12.5 mg GT BID [facility] Last Admin: 04/29/20 10:37 Dose: 12.5 mg Documented by: - Objective Vital Signs: Vital Signs Temperature 97 F L 04/29/20 10:00 Pulse Rate 95 H 04/29/20 10:00 Respiratory Rate 22 H 04/29/20 10:00 Blood Pressure 171/103 H 04/29/20 10:00 O2 Sat by Pulse Oximetry (%) 99 04/29/20 10:00 Cardiovascular: Yes: S1, S2 Respiratory: Yes: Mechanically Ventilated Gastrointestinal: Yes: Normal Bowel Sounds, Soft Labs: CBC, BMP 04/29/20 08:05 04/29/20 08:05 INR, PTT INR 1.06 (0.83-1.09) 04/27/20 16:22 Problem List - Problems (1) Chronic respiratory failure Assessment/Plan: Appreciate Pulmonology consult Appreciate ID consult Chest Xray- reviewed EKG- reviewed Blood Cultures-pending Sputum Culture-pending Zosyn renal dosing vent setting pulm consult Code(s): J96.10 - CHRONIC RESPIRATORY FAILURE, UNSP W HYPOXIA OR HYPERCAPNIA (2) Anemia Assessment/Plan: Likely due to GI Bleed and ESRD PRBCs Monitor CBC, CMP GI consult Monitor vitals Stool Occult + Hgb 7.2 start feeding PPI Code(s): D64.9 - ANEMIA, UNSPECIFIED Qualifiers: Anemia type: other cause Other causes of anemia: other cause, not classified Qualified Code(s): D64.89 - Other specified anemias (3) HTN (hypertension) Assessment/Plan: Vital Signs Period Temp Pulse Resp BP Sys/Pimentel Pulse Ox Last 24 Hr 97 F-98.3 F 92-102 20-28 129-171/86-103 98-100 Code(s): I10 - ESSENTIAL (PRIMARY) HYPERTENSION (4) ESRD (end stage renal disease) on dialysis Assessment/Plan: renal on case replace k Code(s): N18.6 - END STAGE RENAL DISEASE; Z99.2 - DEPENDENCE ON RENAL DIALYSIS
[2020-04-29] MEDS: KCL 10 MEQ IVPB 10 MEQ/100 ML INFUS.BAG IVPB SCH ×2 (12:04→14:31)
[2020-04-29] MEDS ORDERED: POTASSIUM CHLORIDE ORAL LIQUID 20 MEQ/15 ML GT ONE (13:07)
[2020-04-29] MEDS ORDERED: SODIUM CHLORIDE 250 ML IV PRN ×2 (13:08→13:09)
--- NOTE | 2020-04-29 14:48 | CON.GI ---
Consult Consult Specialty:: Gastroenterology ( coevring Dr Cooney) Referred by:: Dr Paul Landin Reason for Consultation:: Anemia - History of Present Illness Chief Complaint: Nonverbal History of Present Illness: 64M is transferred from [facility] for a dwindling Hb form 7.5 to 6.6. No overt bleeding has been reported. the patient is nonverbal. He is trach/ventilator dependent with a PEG after suffering a CVA during a bout with COVID 19 in 01/08 according to the nurse. No other history can be elicited but he does have a sta ge 4 sacral decubitus and requires dialysis TIW - History Source History Provided By: Medical Record Limitations to Obtaining History: Other (nonverbal) - Past Medical History KOSHER BUTCHER: Yes: CVA Cardio/Vascular: Yes: HTN, Hyperlipdemia Pulmonary: Yes: O2 Dependent (Trach- Vent), Pneumonia, Other (trach) Gastrointestinal: Yes: GERD, Other (PEG) Renal/: Yes: Renal Failure, Hemodialysis Infectious Disease: Yes: Other (COVID 19 01/08) - Past Surgical History Past Surgical History: Yes: None - Alcohol/Substance Use Hx Alcohol Use: No (Unknown hx) History of Substance Use: reports: None (Unknown hx) - Smoking History Smoking history: Unknown if ever smoked - Social History Usual Living Arrangement: Long-Term ADL: Support Services History of Recent Travel: No Home Medications - Allergies Allergies/Adverse Reactions: Allergies Allergy/AdvReac Type Severity Reaction Status Date / Time No Known Allergies Allergy Verified 04/27/20 17:19 - Home Medications Home Medications: Ambulatory Orders Acetaminophen [Tylenol] 650 mg GT Q6H PRN 04/27/20 Albuterol 2.5/Ipratropium 0.5 [Duoneb -] 1 neb IH QID 04/27/20 Atorvastatin Ca [Lipitor] 40 mg GT HS 04/27/20 Calcium Acetate 667 mg GT TID 04/27/20 Esomeprazole Magnesium [Nexium 24Hr] 40 mg GT DAILY 04/27/20 Levetiracetam 500 mg GT DAILY 04/27/20 Levetiracetam [Spritam] 250 mg GT 04/27/20 Metoprolol Tartrate [Lopressor -] 12.5 mg GT BID 04/27/20 Midodrine HCl 10 mg GT TID 04/27/20 Polyethylene Glycol 3350 [Clearlax] 17 gm GT DAILY 04/27/20 Sennosides [Senna] 17.2 mg GT HS 04/27/20 Family Medical History Family History: Unable to Obtain Review of Systems Unable to obtain ROS, reason: nonverbal Physical Exam-GI Vital Signs: Vital Signs Temperature 97 F L 04/29/20 10:00 Pulse Rate 95 H 04/29/20 10:00 Respiratory Rate 21 H 04/29/20 12:28 Blood Pressure 171/103 H 04/29/20 10:00 O2 Sat by Pulse Oximetry (%) 99 04/29/20 12:28 CBC,CMP WBC 9.3 K/mm3 (4.0-10.0) 04/29/20 08:05 RBC 2.90 M/mm3 (4.00-5.60) L 04/29/20 08:05 Hgb 7.3 GM/dL (11.7-16.9) L 04/29/20 08:05 Hct 22.5 % (35.4-49) L 04/29/20 08:05 MCV 77.6 fl (80-96) L 04/29/20 08:05 MCH 25.1 pg (25.7-33.7) L 04/29/20 08:05 MCHC 32.3 g/dl (32.0-35.9) 04/29/20 08:05 RDW 18.9 % (11.9-15.9) H 04/29/20 08:05 Plt Count 449 K/MM3 (134-434) H 04/29/20 08:05 MPV 6.1 fl (7.5-11.1) L 04/29/20 08:05 Absolute Neuts (auto) 6.8 K/mm3 (1.5-8.0) 04/29/20 08:05 Neutrophils % 72.9 % (42.8-82.8) 04/29/20 08:05 Lymphocytes % 12.6 % (8-40) 04/29/20 08:05 Monocytes % 7.7 % (3.8-10.2) 04/29/20 08:05 Eosinophils % 6.1 % (0-4.5) H 04/29/20 08:05 Basophils % 0.7 % (0-2.0) 04/29/20 08:05 Nucleated RBC % 0 % (0-0) 04/29/20 08:05 Sodium 133 mmol/L (136-145) L 04/29/20 08:05 Potassium 3.1 mmol/L (3.5-5.1) L 04/29/20 08:05 Chloride 96 mmol/L (98-107) L 04/29/20 08:05 Carbon Dioxide 29 mmol/L (21-32) 04/29/20 08:05 Anion Gap 8 MMOL/L (8-16) 04/29/20 08:05 BUN 57.6 mg/dL (7-18) H 04/29/20 08:05 Creatinine 2.8 mg/dL (0.55-1.3) H 04/29/20 08:05 Est GFR (CKD-EPI)AfAm 26.81 04/29/20 08:05 Est GFR (CKD-EPI)NonAf 23.13 04/29/20 08:05 Random Glucose 97 mg/dL (74-106) 04/29/20 08:05 Calcium 9.8 mg/dL (8.5-10.1) 04/29/20 08:05 Magnesium 2.2 mg/dL (1.8-2.4) 04/27/20 18:43 Iron 20 ug/dL (50-175) L 04/29/20 08:05 TIBC 124 ug/dL (250-450) L 04/29/20 08:05 Iron Saturation 16 % (17.5-39) L 04/29/20 08:05 Unsaturated IBC 104 ug/dL (200-275) L 04/29/20 08:05 Ferritin 1698.0 ng/ml (8-388) H 04/29/20 08:05 Total Bilirubin 0.5 mg/dL (0.2-1) 04/29/20 08:05 AST 10 U/L (15-37) L 04/29/20 08:05 ALT 10 U/L (13-61) L 04/29/20 08:05 Alkaline Phosphatase 125 U/L (45-117) H 04/29/20 08:05 Total Protein 6.6 g/dl (6.4-8.2) 04/29/20 08:05 Albumin 1.8 g/dl (3.4-5.0) L 04/29/20 08:05 Current Medications Generic Name Dose Route Start Last Admin Trade Name Freq PRN Reason Stop Dose Admin Amino Acids 30 ml 04/30/20 10:00 Prosource No Carb Liquid Pkt GT DAILY [facility] Amlodipine Besylate 5 mg 04/28/20 13:15 04/29/20 10:37 Norvasc - GT 5 mg DAILY [facility] Administration Atorvastatin Calcium 40 mg 04/28/20 22:00 04/28/20 22:41 Lipitor - GT 40 mg HS [facility] Administration Epoetin Ricky 20,000 unit 04/30/20 08:00 Procrit - IVPUSH 04/30/20 08:01 ONCE ONE Piperacillin Sod/Tazobactam 50 mls @ 100 mls/hr 04/28/20 22:30 04/29/20 10:37 Sod 2.25 gm/ Dextrose IVPB 100 mls/hr Q8H-IV [facility] Administration Protocol Dextrose/Sodium Chloride 40 meq in 1,000 mls @ 50 mls/hr 04/28/20 11:15 04/28 12:09 D5-1/2ns+40 Meq Kcl - IV 50 mls/hr ASDIR [facility] Administration Sodium Chloride 250 mls @ 3,000 mls/hr 04/29/20 13:08 Normal Saline - IV 04/30/20 13:08 PRN PRN Hypotension during Dialysis Sodium Chloride 250 mls @ 3,000 mls/hr 04/29/20 13:09 Normal Saline - IV 04/30/20 13:09 PRN PRN Hypotension during Dialysis Levetiracetam 500 mg 04/28/20 06:00 04/29/20 05:48 Keppra Oral Solution - GT 500 mg DAILY@0600 [facility] Administration Levetiracetam 250 mg 04/28/20 18:00 04/28/20 17:24 Keppra Oral Solution - GT 250 mg TUTHSA@1800 [facility] Administration Metoprolol Tartrate 12.5 mg 04/28/20 10:00 04/29/20 10:37 Lopressor - GT 12.5 mg BID [facility] Administration Constitutional: Yes: Other (Nonresponsive, intubated via trach) Eyes: Yes: Conjunctiva Clear HENT: Yes: Atraumatic Neck: Yes: Trachea Midline Cardiovascular: Yes: Tachycardia Respiratory: Yes: Rhonchi (bilaterally) Gastrointestinal Inspection: Yes: Other (LUQ PEG tube - lavaged with saline. No blood elicited) ...Auscultate: Yes: Hypoactive Bowel Sounds ...Palpate: Yes: Soft, Other (nontender) ...Rectal Exam: Yes: Guaiac Negative (not impacted, 2+ prostate, brown g negative stool stage 4 sacral decubitus) Labs: CBC, BMP 04/29/20 08:05 04/29/20 08:05 INR, PTT INR 1.06 (0.83-1.09) 04/27/20 16:22 Laboratory Tests 04/28/20 04/29/20 00:45 08:05 Iron 20 L TIBC 124 L Iron Saturation 16 L Unsaturated IBC 104 L Ferritin 1698.0 H Albumin 1.8 L COVID-19 (MINE) Not detected Problem List - Problems (1) Anemia Code(s): D64.9 - ANEMIA, UNSPECIFIED Qualifiers: Anemia type: other cause Other causes of anemia: other cause, not classified Qualified Code(s): D64.89 - Other specified anemias (2) Gastrostomy in place Code(s): Z93.1 - GASTROSTOMY STATUS (3) Tracheostomy dependent Code(s): Z93.0 - TRACHEOSTOMY STATUS (4) CVA (cerebral vascular accident) Code(s): I63.9 - CEREBRAL INFARCTION, UNSPECIFIED (5) Chronic respiratory failure Code(s): J96.10 - CHRONIC RESPIRATORY FAILURE, UNSP W HYPOXIA OR HYPERCAPNIA (6) ESRD (end stage renal disease) on dialysis Code(s): N18.6 - END STAGE RENAL DISEASE; Z99.2 - DEPENDENCE ON RENAL DIALYSIS (7) HLD (hyperlipidemia) Code(s): E78.5 - HYPERLIPIDEMIA, UNSPECIFIED (8) HTN (hypertension) Code(s): I10 - ESSENTIAL (PRIMARY) HYPERTENSION Assessment/Plan Impression: - GIven the lack of GI bleeding and obvious hematomas I believe that Sergo' source of bleeding is form his stage 4 decubitus with increased bleeding after getting heparin for dialyses. If his Hb drops rapidly a CT of the abdomen should be obtained to exclude a retroperitoneal bleed. Endoscopies will be reserved for overt GI bleeding. Plan: - Serial CBCs - PPI for stress gastritis prophylaxis - CT scan of the abdomen and pelvis if Hb drops rapidly to exclude retroperitoneal bleeding - Venofer - [place] endoscopies for overt GI bleeding Dr Cooney will assume GI care tomorrow
[2020-04-29] MEDS ORDERED: IRON SUCROSE INJECTION 200 MG in SODIUM CHLORIDE 90 ML IVPB ONE (16:10)
[2020-04-29] MEDS: D5-1/2NS+40 MEQ KCL - 40 MEQ/1,000 ML INFUS.BAG IV SCH (16:45)
[2020-04-29] MEDS: ATORVASTATIN CA 40 MG TABLET (FP) GT SCH (21:27)
[2020-04-30] MEDS ORDERED: PIPERACILLIN/TAZOBACTAM 2.25 GM VIAL IVPB ONE ×3 (02:03→16:51)
[2020-04-30] MEDS ORDERED: DEXTROSE 5%-WATER - 50 ML IVPB ONE ×3 (02:03→16:51)
[2020-04-30] MEDS: PIPERACILLIN/TAZOB 2.25 GM 2.25 GM in DEXTROSE 5%-WATER - 50 ML IVPB SCH ×3 (02:16→17:25)
[2020-04-30] MEDS: levETIRAcetam 500 MG/5 ML ORAL SOLUTION (UNIT-DOSE CUPS) GT SCH (05:50)
[2020-04-30] MEDS: PANTOPRAZOLE SODIUM 40 MG VIAL IVPUSH SCH (10:54)
[2020-04-30] MEDS: AMINO ACIDS/PROTEIN HYDROLYS 30 ML LIQUID.PKT GT SCH (10:54)
--- NOTE | 2020-04-30 11:39 | PN ---
Progress Note, Physician Chief Complaint: Anemia ESRD Chronic resp failure History of Present Illness: This is a 64 y/o male from [facility] with a PMHx of ESRD (HD- MWF), Chronic Respiratory Failure s/p Trach- Vent dependent, CVA, HTN, HLD, GERD, Pneumonia, Sepsis, Covid + (12/21/19). Who presents to the ED for low H/H x 2 days. Per [place] records patient's Hgb was 7.5. Patient is trach- vent dependent (non-verbal) unable to provide HPI. In the ED Hgb was 6.6, Stool Occult negative. PRBCs x2 ordered. Repeat labs pending - Current Medication List Current Medications: Active Medications Amino Acids (Prosource No Carb Liquid Pkt) 30 ml GT DAILY [facility] Last Admin: 04/30/20 10:54 Dose: 30 ml Documented by: Amlodipine Besylate (Norvasc -) 5 mg GT DAILY [facility] Last Admin: 04/29/20 10:37 Dose: 5 mg Documented by: Atorvastatin Calcium (Lipitor -) 40 mg GT HS [facility] Last Admin: 04/29/20 21:27 Dose: 40 mg Documented by: Epoetin Ricky (Procrit -) 20,000 unit IVPUSH ONCE ONE Stop: 04/30/20 08:01 Piperacillin Sod/Tazobactam (Sod 2.25 gm/ Dextrose) 50 mls @ 100 mls/hr IVPB Q8H-IV [facility]; Protocol Last Admin: 04/30/20 11:06 Dose: 100 mls/hr Documented by: Dextrose/Sodium Chloride (D5-1/2ns+40 Meq Kcl -) 40 meq in 1,000 mls @ 50 mls/hr IV ASDIR [facility] Last Admin: 04/29/20 16:45 Dose: 50 mls/hr Documented by: Sodium Chloride (Normal Saline -) 250 mls @ 3,000 mls/hr IV PRN PRN PRN Reason: Hypotension during Dialysis Stop: 04/30/20 13:09 Levetiracetam (Keppra Oral Solution -) 500 mg GT DAILY@0600 [facility] Last Admin: 04/30/20 05:50 Dose: 500 mg Documented by: Levetiracetam (Keppra Oral Solution -) 250 mg GT TUTHSA@1800 [facility] Last Admin: 04/28/20 17:24 Dose: 250 mg Documented by: Metoprolol Tartrate (Lopressor -) 12.5 mg GT BID [facility] Last Admin: 04/29/20 21:27 Dose: 12.5 mg Documented by: Pantoprazole Sodium (Protonix Iv) 40 mg IVPUSH DAILY [facility] Last Admin: 04/30/20 10:54 Dose: 40 mg Documented by: - Objective Vital Signs: Vital Signs Temperature 97.7 F 04/30/20 06:00 Pulse Rate 102 H 04/30/20 08:10 Respiratory Rate 21 H 04/30/20 08:10 Blood Pressure 138/88 04/30/20 06:00 O2 Sat by Pulse Oximetry (%) 100 04/30/20 08:10 Constitutional: Yes: Well Nourished, No Distress, Calm Cardiovascular: Yes: Regular Rate and Rhythm Respiratory: Yes: Regular, Mechanically Ventilated, Rhonchi (diffuse) Gastrointestinal: Yes: Normal Bowel Sounds, Soft, Abdomen, Obese Genitourinary: Yes: Matthew Present, Hematuria Musculoskeletal: Yes: Muscle Weakness Extremities: Yes: Other (generalized atrophy) Edema: Yes (left hand) Peripheral Pulses WNL: Yes Neurological: Yes: Pre-Existing Deficit Labs: CBC, BMP 04/29/20 08:05 04/29/20 08:05 INR, PTT INR 1.06 (0.83-1.09) 04/27/20 16:22 Problem List - Problems (1) Anemia Assessment/Plan: -LINDA + ESRD -Procrit as per nephrology -Start Ferrous sulfate BID -Transfuse only if Hg<7.0 to avoid fluid overload -Stool OB negative -Check B12 and thyroid profile as well -Monitor trend -Seen by GI -PPI -Hold parenteral AC -2/2 to blood loss in urine Problems reviewed: Yes Code(s): D64.9 - ANEMIA, UNSPECIFIED Qualifiers: Anemia type: other cause Other causes of anemia: other cause, not cl assified Qualified Code(s): D64.89 - Other specified anemias (2) Chronic respiratory failure [facility]Plan[facility] Problems reviewed: Yes Code(s): J96.10 - CHRONIC RESPIRATORY FAILURE, UNSP W HYPOXIA OR HYPERCAPNIA (3) ESRD (end stage renal disease) on dialysis Assessment/Plan: -MWF Problems reviewed: Yes Code(s): N18.6 - END STAGE RENAL DISEASE; Z99.2 - DEPENDENCE ON RENAL DIALYSIS (4) Gastrostomy in place Problems reviewed: Yes Code(s): Z93.1 - GASTROSTOMY STATUS (5) UTI (urinary tract infection) Assessment/Plan: -UA +3 blood, + leuks, + 3 protein -UC: Microbiology 04/28/20 12:50 Urine Culture - Preliminary Urine - Urine Matthew Streptococcus Species 04/28/20 01:30 Blood Culture - Preliminary Blood - Peripheral Venous NO GROWTH OBTAINED AFTER 72 HOURS, INCUBATION TO CONTINUE FOR 2 DAYS. 04/28/20 01:30 Blood Culture - Preliminary Blood - Peripheral Venous NO GROWTH OBTAINED AFTER 72 HOURS, INCUBATION TO CONTINUE FOR 2 DAYS. -IV abx -Maintain matthew for retention Problems reviewed: Yes Code(s): N39.0 - URINARY TRACT INFECTION, SITE NOT SPECIFIED (6) Pneumonia Assessment/Plan: -ID on board -Repeat CXR -IV abx -Afebrile Problems reviewed: Yes Code(s): J18.9 - PNEUMONIA, UNSPECIFIED ORGANISM Assessment/Plan See problem list
[2020-04-30] MEDS: D5-1/2NS+40 MEQ KCL - 40 MEQ/1,000 ML INFUS.BAG IV SCH (11:52)
--- NOTE | 2020-04-30 12:07 | PN ---
Progress Note (short form) - Note Progress Note: PULMONARY Vented, poorly responsive. No fevers recorded. Vital Signs Period Temp Pulse Resp BP Sys/Pimentel Pulse Ox Last 24 Hr 97.7 F-98.2 F 92-103 20-23 138-173/88-106 97-100 Gen: vented, poorly responsive Heart: RRR Lung: decreased breath sounds at the bases Abd: soft, nontender Ext: no edema CBC, BMP 04/29/20 08:05 04/29/20 08:05 Active Medications Amino Acids (Prosource No Carb Liquid Pkt) 30 ml GT DAILY [facility] Last Admin: 04/30/20 10:54 Dose: 30 ml Documented by: Amlodipine Besylate (Norvasc -) 5 mg GT DAILY [facility] Last Admin: 04/29/20 10:37 Dose: 5 mg Documented by: Atorvastatin Calcium (Lipitor -) 40 mg GT HS [facility] Last Admin: 04/29/20 21:27 Dose: 40 mg Documented by: Epoetin Ricky (Procrit -) 20,000 unit IVPUSH ONCE ONE Stop: 04/30/20 08:01 Ferrous Sulfate (Feosol) 300 mg GT BID [facility] Piperacillin Sod/Tazobactam (Sod 2.25 gm/ Dextrose) 50 mls @ 100 mls/hr IVPB Q8H-IV [facility]; Protocol Last Admin: 04/30/20 11:06 Dose: 100 mls/hr Documented by: Dextrose/Sodium Chloride (D5-1/2ns+40 Meq Kcl -) 40 meq in 1,000 mls @ 50 mls/hr IV ASDIR [facility] Last Admin: 04/29/20 16:45 Dose: 50 mls/hr Documented by: Sodium Chloride (Normal Saline -) 250 mls @ 3,000 mls/hr IV PRN PRN PRN Reason: Hypotension during Dialysis Stop: 04/30/20 13:09 Levetiracetam (Keppra Oral Solution -) 500 mg GT DAILY@0600 [facility] Last Admin: 04/30/20 05:50 Dose: 500 mg Documented by: Levetiracetam (Keppra Oral Solution -) 250 mg GT TUTHSA@1800 [facility] Last Admin: 04/28/20 17:24 Dose: 250 mg Documented by: Metoprolol Tartrate (Lopressor -) 12.5 mg GT BID [facility] Last Admin: 04/29/20 21:27 Dose: 12.5 mg Documented by: Pantoprazole Sodium (Protonix Iv) 40 mg IVPUSH DAILY [facility] Last Admin: 04/30/20 10:54 Dose: 40 mg Documented by: A/P Chronic Respiratory Failure UTI ESRD on HD h/o COVID19 h/o CVA HTN Hyperlipidemia Anemia - continue antibiotics - monitor H/H - transfuse as needed - HD per renal - continue volume assist control - poor candidate for weaning due to mental status - enteral feeds - DVT/GI prophylaxis
--- NOTE | 2020-04-30 12:35 | PN ---
Progress Note (short form) - Note Progress Note: NAD trach to vent permacath Vital Signs Period Temp Pulse Resp BP Sys/Pimentel Pulse Ox Last 24 Hr 97.7 F-98.2 F 92-103 20-23 138-173/88-106 97-100 cor-rrr lungs decreased bs at bases abd soft,+GT ext no edema CBC, BMP 04/29/20 08:05 04/29/20 08:05 Microbiology 04/28/20 04:55 Sputum - Endotrachea Suction/Ventilator Gram Stain - Final 04/28/20 04:55 Sputum - Endotrachea Suction/Ventilator Sputum Culture - Final Pseudomonas Aeruginosa 04/28/20 12:50 Urine - Urine Metzger Urine Culture - Preliminary Streptococcus Species 04/28/20 01:30 Blood - Peripheral Venous Blood Culture - Preliminary NO GROWTH OBTAINED AFTER 48 HOURS, INCUBATION TO CONTINUE FOR 3 DAYS. 04/28/20 01:30 Blood - Peripheral Venous Blood Culture - Preliminary NO GROWTH OBTAINED AFTER 48 HOURS, INCUBATION TO CONTINUE FOR 3 DAYS. a/p chronic resp failure r/o pneumonia uti anemia continue zosyn day #3 Problem List - Problems (1) Anemia Code(s): D64.9 - ANEMIA, UNSPECIFIED Qualifiers: Anemia type: other cause Other causes of anemia: other cause, not classified Qualified Code(s): D64.89 - Other specified anemias (2) Chronic respiratory failure Code(s): J96.10 - CHRONIC RESPIRATORY FAILURE, UNSP W HYPOXIA OR HYPERCAPNIA (3) Pneumonia Code(s): J18.9 - PNEUMONIA, UNSPECIFIED ORGANISM (4) History of 2019 novel coronavirus disease (COVID-19) Code(s): Z86.19 - PERSONAL HISTORY OF OTHER INFECTIOUS AND PARASITIC DISEASES (5) ESRD (end stage renal disease) on dialysis Code(s): N18.6 - END STAGE RENAL DISEASE; Z99.2 - DEPENDENCE ON RENAL DIALYSIS
--- NOTE | 2020-04-30 13:44 | PN ---
Progress Note, Physician History of Present Illness: Pt seen and examined at bedside. He responds to his name. - Current Medication List Current Medications: Active Medications Amino Acids (Prosource No Carb Liquid Pkt) 30 ml GT DAILY [facility] Last Admin: 04/30/20 10:54 Dose: 30 ml Documented by: Amlodipine Besylate (Norvasc -) 5 mg GT DAILY [facility] Last Admin: 04/29/20 10:37 Dose: 5 mg Documented by: Atorvastatin Calcium (Lipitor -) 40 mg GT HS [facility] Last Admin: 04/29/20 21:27 Dose: 40 mg Documented by: Epoetin Ricky (Procrit -) 20,000 unit IVPUSH ONCE ONE Stop: 04/30/20 08:01 Ferrous Sulfate (Feosol) 300 mg GT BID [facility] Piperacillin Sod/Tazobactam (Sod 2.25 gm/ Dextrose) 50 mls @ 100 mls/hr IVPB Q8H-IV [facility]; Protocol Last Admin: 04/30/20 11:06 Dose: 100 mls/hr Documented by: Dextrose/Sodium Chloride (D5-1/2ns+40 Meq Kcl -) 40 meq in 1,000 mls @ 50 mls/hr IV ASDIR [facility] Last Admin: 04/29/20 16:45 Dose: 50 mls/hr Documented by: Sodium Chloride (Normal Saline -) 250 mls @ 3,000 mls/hr IV PRN PRN PRN Reason: Hypotension during Dialysis Stop: 04/30/20 13:09 Levetiracetam (Keppra Oral Solution -) 500 mg GT DAILY@0600 [facility] Last Admin: 04/30/20 05:50 Dose: 500 mg Documented by: Levetiracetam (Keppra Oral Solution -) 250 mg GT TUTHSA@1800 [facility] Last Admin: 04/28/20 17:24 Dose: 250 mg Documented by: Metoprolol Tartrate (Lopressor -) 12.5 mg GT BID [facility] Last Admin: 04/29/20 21:27 Dose: 12.5 mg Documented by: Pantoprazole Sodium (Protonix Iv) 40 mg IVPUSH DAILY [facility] Last Admin: 04/30/20 10:54 Dose: 40 mg Documented by: - Objective Vital Signs: Vital Signs Temperature 97.9 F 04/30/20 09:00 Pulse Rate 100 H 04/30/20 11:43 Respiratory Rate 23 H 04/30/20 11:43 Blood Pressure 152/99 04/30/20 09:00 O2 Sat by Pulse Oximetry (%) 99 04/30/20 11:43 Constitutional: Yes: Calm Eyes: Yes: Conjunctiva Clear HENT: Yes: Atraumatic Cardiovascular: Yes: S1, S2 Respiratory: Yes: Mechanically Ventilated Gastrointestinal: Yes: Soft Genitourinary: Yes: Metzger Present Musculoskeletal: Yes: Muscle Weakness Edema: Yes Neurological: Yes: Other (awake) Labs: CBC, BMP 04/29/20 08:05 04/29/20 08:05 INR, PTT INR 1.06 (0.83-1.09) 04/27/20 16:22 Problem List - Problems (1) ESRD (end stage renal disease) on dialysis Code(s): N18.6 - END STAGE RENAL DISEASE; Z99.2 - DEPENDENCE ON RENAL DIALYSIS Assessment/Plan Current Medications Generic Name Dose Route Start Last Admin Trade Name Freq PRN Reason Stop Dose Admin Amino Acids 30 ml 04/30/20 10:00 04/30/20 10:54 Prosource No Carb Liquid Pkt GT 30 ml DAILY [facility] Administration Amlodipine Besylate 5 mg 04/28/20 13:15 04/29/20 10:37 Norvasc - GT 5 mg DAILY [facility] Administration Atorvastatin Calcium 40 mg 04/28/20 22:00 04/29/20 21:27 Lipitor - GT 40 mg HS [facility] Administration Epoetin Ricky 20,000 unit 04/30/20 08:00 Procrit - IVPUSH 04/30/20 08:01 ONCE ONE Ferrous Sulfate 300 mg 04/30/20 11:45 Feosol GT BID [facility] Piperacillin Sod/Tazobactam 50 mls @ 100 mls/hr 04/28/20 22:30 04/30/20 11:06 Sod 2.25 gm/ Dextrose IVPB 100 mls/hr Q8H-IV [facility] Administration Protocol Dextrose/Sodium Chloride 40 meq in 1,000 mls @ 50 mls/hr 04/28/20 11:15 04/29/20 16:45 D5-1/2ns+40 Meq Kcl - IV 50 mls/hr ASDIR [facility] Administration Sodium Chloride 250 mls @ 3,000 mls/hr 04/29/20 13:09 Normal Saline - IV 04/30/20 13:09 PRN PRN Hypotension during Dialysis Levetiracetam 500 mg 04/28/20 06:00 04/30/20 05:50 Keppra Oral Solution - GT 500 mg DAILY@0600 [facility] Administration Levetiracetam 250 mg 04/28/20 18:00 04/28/20 17:24 Keppra Oral Solution - GT 250 mg TUTHSA@1800 [facility] Administration Metoprolol Tartrate 12.5 mg 04/28/20 10:00 04/29/20 21:27 Lopressor - GT 12.5 mg BID [facility] Administration Pantoprazole Sodium 40 mg 04/30/20 10:00 04/30/20 10:54 Protonix Iv IVPUSH 40 mg DAILY [facility] Administration Laboratory Tests 04/29/20 08:05 Potassium 3.1 L 1. Acute on chronic anemia 2. ESRD on HD 3. Hypokalemia 4. Chronic respiratory failure on vent 5. Hypertension Plan - HD tomorrow, unable to dialyze today secondary to scheduling - replace potassium - cont feeds - d/f fluids - cont vent support - monitor hg
[2020-04-30] MEDS ORDERED: POTASSIUM CHLORIDE ORAL LIQUID 20 MEQ/15 ML PO ONE (13:45)
[2020-04-30] MEDS: FERROUS SO4 300 MG/5 ML ORAL SOLN UNIT DOSE CUPS GT SCH ×2 (13:57→21:55)
[2020-04-30] MEDS ORDERED: PT OWN MED DRAWER 7, Y5N ONE (14:44)
[2020-04-30] MEDS: amLODIPine BESYLATE 5 MG TABLET (FP) GT SCH (14:49)
[2020-04-30] MEDS: METOPROLOL TARTRATE 25 MG TABLET (FP) GT SCH ×2 (14:49→21:55)
[2020-04-30] MEDS ORDERED: METOPROLOL TARTRATE 25 MG TABLET (FP) PO ONE (20:01)
[2020-04-30] MEDS: ATORVASTATIN CA 40 MG TABLET (FP) GT SCH (21:55)
[2020-05-01] MEDS ORDERED: DEXTROSE 5%-WATER - 50 ML IVPB ONE ×3 (01:20→17:30)
[2020-05-01] MEDS ORDERED: PIPERACILLIN/TAZOBACTAM 2.25 GM VIAL IVPB ONE ×3 (01:20→17:29)
[2020-05-01] MEDS: PIPERACILLIN/TAZOB 2.25 GM 2.25 GM in DEXTROSE 5%-WATER - 50 ML IVPB SCH ×3 (01:34→17:33)
[2020-05-01] MEDS: levETIRAcetam 500 MG/5 ML ORAL SOLUTION (UNIT-DOSE CUPS) GT SCH ×2 (05:47→17:33)
[2020-05-01] MEDS ORDERED: EPOETIN ALFA 20,000 UNIT/1 ML VIAL IVPUSH ONE (08:00)
[2020-05-01 08:13] LABS: HEMATOCRIT 25.4 % (35.4-49); HEMOGLOBIN 8.1 GM/dL (11.7-16.9); MCH 25.4 pg (25.7-33.7); MCHC 31.9 g/dl (32.0-35.9); MEAN CELL VOLUME 79.6 fl (80-96); MEAN PLT VOLUME 6.5 fl (7.5-11.1); PLATELET COUNT 445 K/MM3 (134-434); RBC 3.19 M/mm3 (4.00-5.60); RDW 19.3 % (11.9-15.9); WHITE BLOOD COUNT 10.1 K/mm3 (4.0-10.0)
[2020-05-01 08:39] LABS: ALBUMIN 1.9 g/dl (3.4-5.0); BILIRUBIN,TOTAL 0.3 mg/dL (0.2-1); BLOOD UREA NITROGEN 72.5 mg/dL (7-18); CALCIUM 9.4 mg/dL (8.5-10.1); CREATININE 3.5 mg/dL (0.55-1.3); MAGNESIUM 2.3 mg/dL (1.8-2.4); PHOSPHOROUS 2.5 mg/dL (2.5-4.9); POTASSIUM 3.7 mmol/L (3.5-5.1); TOT PROT 6.6 g/dl (6.4-8.2)
[2020-05-01] MEDS: FERROUS SO4 300 MG/5 ML ORAL SOLN UNIT DOSE CUPS GT SCH ×2 (11:33→22:44)
[2020-05-01] MEDS: METOPROLOL TARTRATE 25 MG TABLET (FP) GT SCH ×2 (11:33→22:44)
[2020-05-01] MEDS: AMINO ACIDS/PROTEIN HYDROLYS 30 ML LIQUID.PKT GT SCH (11:33)
[2020-05-01] MEDS: PANTOPRAZOLE SODIUM 40 MG VIAL IVPUSH SCH (11:33)
--- NOTE | 2020-05-01 11:33 | PN ---
Progress Note, Physician History of Present Illness: pulmonary poorly responsive on vent support,ac mode,-rep distress - Current Medication List Current Medications: Active Medications Amino Acids (Prosource No Carb Liquid Pkt) 30 ml GT DAILY [facility] Last Admin: 04/30/20 10:54 Dose: 30 ml Documented by: Amlodipine Besylate (Norvasc -) 5 mg GT DAILY [facility] Last Admin: 04/30/20 14:49 Dose: 5 mg Documented by: Atorvastatin Calcium (Lipitor -) 40 mg GT HS [facility] Last Admin: 04/30/20 21:55 Dose: 40 mg Documented by: Ferrous Sulfate (Feosol) 300 mg GT BID [facility] Last Admin: 04/30/20 21:55 Dose: 300 mg Documented by: Piperacillin Sod/Tazobactam (Sod 2.25 gm/ Dextrose) 50 mls @ 100 mls/hr IVPB Q8H-IV [facility]; Protocol Last Admin: 05/01/20 01:34 Dose: 100 mls/hr Documented by: Levetiracetam (Keppra Oral Solution -) 500 mg GT DAILY@0600 [facility] Last Admin: 05/01/20 05:47 Dose: 500 mg Documented by: Levetiracetam (Keppra Oral Solution -) 250 mg GT TUTHSA@1800 [facility] Last Admin: 04/28/20 17:24 Dose: 250 mg Documented by: Metoprolol Tartrate (Lopressor -) 12.5 mg GT BID [facility] Last Admin: 04/30/20 21:55 Dose: Not Given Documented by: Pantoprazole Sodium (Protonix Iv) 40 mg IVPUSH DAILY [facility] Last Admin: 04/30/20 10:54 Dose: 40 mg Documented by: - Objective Vital Signs: Vital Signs Temperature 98.4 F 05/01/20 07:40 Pulse Rate 71 05/01/20 10:50 Respiratory Rate 20 05/01/20 10:50 Blood Pressure 121/61 05/01/20 10:50 O2 Sat by Pulse Oximetry (%) 99 05/01/20 09:46 Constitutional: Yes: Well Nourished, Other (poorly responsive) Eyes: Yes: WNL HENT: Yes: WNL Neck: Yes: Supple (trach) Cardiovascular: Yes: Regular Rate and Rhythm, S1, S2 Gastrointestinal: Yes: Normal Bowel Sounds, Soft Extremities: Yes: WNL Edema: No Labs: CBC, BMP 05/01/20 07:20 05/01/20 07:20 INR, PTT INR 1.06 (0.83-1.09) 04/27/20 16:22 Problem List - Problems (1) Anemia Code(s): D64.9 - ANEMIA, UNSPECIFIED Qualifiers: Anemia type: other cause Other causes of anemia: other cause, not classified Qualified Code(s): D64.89 - Other specified anemias (2) Chronic respiratory failure Code(s): J96.10 - CHRONIC RESPIRATORY FAILURE, UNSP W HYPOXIA OR HYPERCAPNIA (3) ESRD (end stage renal disease) on dialysis Code(s): N18.6 - END STAGE RENAL DISEASE; Z99.2 - DEPENDENCE ON RENAL DIALYSIS (4) Encounter for screening laboratory testing for COVID-19 virus Code(s): Z11.59 - ENCOUNTER FOR SCREENING FOR OTHER VIRAL DISEASES (5) GERD (gastroesophageal reflux disease) Code(s): K21.9 - GASTRO-ESOPHAGEAL REFLUX DISEASE WITHOUT ESOPHAGITIS (6) HLD (hyperlipidemia) Code(s): E78.5 - HYPERLIPIDEMIA, UNSPECIFIED (7) HTN (hypertension) Code(s): I10 - ESSENTIAL (PRIMARY) HYPERTENSION (8) Pneumonia Code(s): J18.9 - PNEUMONIA, UNSPECIFIED ORGANISM Assessment/Plan IMP CHRONIC RESPIRATORY FAILURE H/O COVID 19 H/O PNEUMONIA ANEMIA ESRD ON HD H/O CVA HTN HLD PLAN VENT SUPPORT ON A MODE INHALED BRONCHODILATORS ABX NORMAL TRANSFUSION THRESHOLD MONITOR H+H,LYTES F/U CHEST X-RAYS HD PER RENAL DR LAMAR
[2020-05-01] MEDS: amLODIPine BESYLATE 5 MG TABLET (FP) GT SCH (11:34)
--- NOTE | 2020-05-01 13:42 | PN.GI ---
GI Progress Note Subjective: No GI bleeding + hematuria per nurse - Objective Vital Signs: Vital Signs Temperature 98.4 F 05/01/20 07:40 Pulse Rate 71 05/01/20 10:50 Respiratory Rate 20 05/01/20 13:03 Blood Pressure 121/61 05/01/20 10:50 O2 Sat by Pulse Oximetry (%) 100 05/01/20 13:03 Constitutional: Calm Eyes: No: Sclera Icterus Cardiovascular: Yes: Regular Rate and Rhythm Respiratory: Yes: Diminished (at bases bilaterally) Gastrointestinal Inspection: Yes: Other (G tube in upper abdomen). No: Distention ...Auscultate: Yes: Normoactive Bowel Sounds ...Palpate: Yes: Soft. No: Hepatomegaly, Splenomegaly, Tenderness Labs: CBC, BMP 05/01/20 07:20 05/01/20 07:20 INR, PTT INR 1.06 (0.83-1.09) 04/27/20 16:22 Problem List - Problems (1) Anemia Assessment/Plan: No overt bleeding Has a SIV weeping sacral decubitus that oozes blood. Also currently with hematuria I did discuss finding of anemia with Mr. Carvalho' daughter Trenton Kwon. Explained that while there can be other causes of the anemia. EGD and colonoscopy to exclude GI sources of anemia such as slowly bleeding blood vessels, polyps or tumors such as colon cancer. We discussed potential risks of the procedures like but not limited to bleeding, perfroation requiring surgery to repair, infection, sedation medication effects all of which could be potentially life threatening. She was not sure that she wanted her father under going these procedures based on his overall clinical condition. Gave her my office number if she ever wanted to speak about things further. Evaluation of hematuria per primary team Please recall GI as needed Code(s): D64.9 - ANEMIA, UNSPECIFIED Qualifiers: Anemia type: other cause Other causes of anemia: other cause, not classified Qualified Code(s): D64.89 - Other specified anemias
--- NOTE | 2020-05-01 14:41 | PN ---
Progress Note, Physician History of Present Illness: Pt seen and examined at bedside. He tolerated HD. - Current Medication List Current Medications: Active Medications Amino Acids (Prosource No Carb Liquid Pkt) 30 ml GT DAILY [facility] Last Admin: 05/01/20 11:33 Dose: 30 ml Documented by: Amlodipine Besylate (Norvasc -) 5 mg GT DAILY [facility] Last Admin: 05/01/20 11:34 Dose: 5 mg Documented by: Atorvastatin Calcium (Lipitor -) 40 mg GT HS [facility] Last Admin: 04/30/20 21:55 Dose: 40 mg Documented by: Ferrous Sulfate (Feosol) 300 mg GT BID [facility] Last Admin: 05/01/20 11:33 Dose: 300 mg Documented by: Piperacillin Sod/Tazobactam (Sod 2.25 gm/ Dextrose) 50 mls @ 100 mls/hr IVPB Q8H-IV [facility]; Protocol Last Admin: 05/01/20 11:34 Dose: 100 mls/hr Documented by: Levetiracetam (Keppra Oral Solution -) 500 mg GT DAILY@0600 [facility] Last Admin: 05/01/20 05:47 Dose: 500 mg Documented by: Levetiracetam (Keppra Oral Solution -) 250 mg GT TUTHSA@1800 [facility] Last Admin: 04/28/20 17:24 Dose: 250 mg Documented by: Metoprolol Tartrate (Lopressor -) 12.5 mg GT BID [facility] Last Admin: 05/01/20 11:33 Dose: 12.5 mg Documented by: Pantoprazole Sodium (Protonix Iv) 40 mg IVPUSH DAILY [facility] Last Admin: 05/01/20 11:33 Dose: 40 mg Documented by: - Objective Vital Signs: Vital Signs Temperature 98.4 F 05/01/20 07:40 Pulse Rate 71 05/01/20 10:50 Respiratory Rate 20 05/01/20 13:03 Blood Pressure 121/61 05/01/20 10:50 O2 Sat by Pulse Oximetry (%) 100 05/01/20 13:03 Constitutional: Yes: Calm Eyes: Yes: Conjunctiva Clear HENT: Yes: Atraumatic Neck: Yes: Supple Cardiovascular: Yes: S1, S2 Respiratory: Yes: Mechanically Ventilated Gastrointestinal: Yes: Soft Genitourinary: Yes: Metzger Present Musculoskeletal: Yes: Muscle Weakness Edema: Yes Neurological: Yes: Lethargy Labs: CBC, BMP 05/01/20 07:20 05/01/20 07:20 INR, PTT INR 1.06 (0.83-1.09) 04/27/20 16:22 Problem List - Problems (1) ESRD (end stage renal disease) on dialysis Code(s): N18.6 - END STAGE RENAL DISEASE; Z99.2 - DEPENDENCE ON RENAL DIALYSIS Assessment/Plan Current Medications Generic Name Dose Route Start Last Admin Trade Name Derick PRN Reason Stop Dose Admin Amino Acids 30 ml 04/30/20 10:00 05/01/20 11:33 Prosource No Carb Liquid Pkt GT 30 ml DAILY [facility] Administration Amlodipine Besylate 5 mg 04/28/20 13:15 05/01/20 11:34 Norvasc - GT 5 mg DAILY [facility] Administration Atorvastatin Calcium 40 mg 04/28/20 22:00 04/30/20 21:55 Lipitor - GT 40 mg HS [facility] Administration Ferrous Sulfate 300 mg 04/30/20 11:45 05/01/20 11:33 Feosol GT 300 mg BID [facility] Administration Piperacillin Sod/Tazobactam 50 mls @ 100 mls/hr 04/28/20 22:30 05/01/20 11:34 Sod 2.25 gm/ Dextrose IVPB 100 mls/hr Q8H-IV [facility] Administration Protocol Levetiracetam 500 mg 04/28/20 06:00 05/01/20 05:47 Keppra Oral Solution - GT 500 mg DAILY@0600 [facility] Administration Levetiracetam 250 mg 04/28/20 18:00 04/28/20 17:24 Keppra Oral Solution - GT 250 mg TUTHSA@1800 [facility] Administration Metoprolol Tartrate 12.5 mg 04/28/20 10:00 05/01/20 11:33 Lopressor - GT 12.5 mg BID [facility] Administration Pantoprazole Sodium 40 mg 04/30/20 10:00 05/01/20 11:33 Protonix Iv IVPUSH 40 mg DAILY [facility] Administration 1. Acute on chronic anemia 2. ESRD on HD 3. Hypokalemia 4. Chronic respiratory failure on vent 5. Hypertension Plan - HD today - cont vent support - cont feeds - monitor lytes - bp is stable, cont current meds
--- NOTE | 2020-05-01 16:01 | PN ---
Progress Note, Physician Chief Complaint: Anemia ESRD Chronic resp failure History of Present Illness: This is a 64 y/o male from [facility] with a PMHx of ESRD (HD- MWF), Chronic Respiratory Failure s/p Trach- Vent dependent, CVA, HTN, HLD, GERD, Pneumonia, Sepsis, Covid + (12/21/19). Who presents to the ED for low H/H x 2 days. Per [place] records patient's Hgb was 7.5. Patient is trach- vent dependent (non-verbal) unable to provide HPI. In the ED Hgb was 6.6, Stool Occult negative. PRBCs x2 ordered. NAD- opens eyes to verbal stimuli Pablo hematuria - Current Medication List Current Medications: Active Medications Amino Acids (Prosource No Carb Liquid Pkt) 30 ml GT DAILY [facility] Last Admin: 05/01/20 11:33 Dose: 30 ml Documented by: Amlodipine Besylate (Norvasc -) 5 mg GT DAILY [facility] Last Admin: 05/01/20 11:34 Dose: 5 mg Documented by: Atorvastatin Calcium (Lipitor -) 40 mg GT HS [facility] Last Admin: 04/30/20 21:55 Dose: 40 mg Documented by: Ferrous Sulfate (Feosol) 300 mg GT BID [facility] Last Admin: 05/01/20 11:33 Dose: 300 mg Documented by: Piperacillin Sod/Tazobactam (Sod 2.25 gm/ Dextrose) 50 mls @ 100 mls/hr IVPB Q8H-IV [facility]; Protocol Last Admin: 05/01/20 11:34 Dose: 100 mls/hr Documented by: Levetiracetam (Keppra Oral Solution -) 500 mg GT DAILY@0600 [facility] Last Admin: 05/01/20 05:47 Dose: 500 mg Documented by: Levetiracetam (Keppra Oral Solution -) 250 mg GT TUTHSA@1800 [facility] Last Admin: 04/28/20 17:24 Dose: 250 mg Documented by: Metoprolol Tartrate (Lopressor -) 12.5 mg GT BID [facility] Last Admin: 05/01/20 11:33 Dose: 12.5 mg Documented by: Pantoprazole Sodium (Protonix Iv) 40 mg IVPUSH DAILY [facility] Last Admin: 05/01/20 11:33 Dose: 40 mg Documented by: - Objective Vital Signs: Vital Signs Temperature 97.7 F 05/01/20 14:00 Pulse Rate 100 H 05/01/20 14:00 Respiratory Rate 25 H 05/01/20 14:00 Blood Pressure 150/96 05/01/20 14:00 O2 Sat by Pulse Oximetry (%) 100 05/01/20 14:00 Constitutional: Yes: Well Nourished, No Distress, Calm, Obese Cardiovascular: Yes: Regular Rate and Rhythm Respiratory: Yes: Regular, Diminished, Mechanically Ventilated Gastrointestinal: Yes: Normal Bowel Sounds, Soft, Abdomen, Obese Musculoskeletal: Yes: Muscle Weakness Extremities: Yes: Other (generalized atrophy) Edema: Yes (left hand) Peripheral Pulses WNL: Yes Integumentary: Yes: Pressure Ulcer (Stage 4 sacral ulcer) Neurological: Yes: Pre-Existing Deficit Labs: CBC, BMP 05/01/20 07:20 05/01/20 07:20 INR, PTT INR 1.06 (0.83-1.09) 04/27/20 16:22 Problem List - Problems (1) Anemia Assessment/Plan: -LINDA + ESRD -Procrit as per nephrology -Start Ferrous sulfate BID -Transfuse only if Hg<7.0 to avoid fluid overload -Stool OB negative -B12 and thyroid profile normal -Monitor trend -Seen by GI -PPI -Hold parenteral AC -2/2 to blood loss in urine -Hematology consult Problems reviewed: Yes Code(s): D64.9 - ANEMIA, UNSPECIFIED Qualifiers: Anemia type: other cause Other causes of anemia: other cause, not classifi ed Qualified Code(s): D64.89 - Other specified anemias (2) Chronic respiratory failure Assessment/Plan: -Mech vent -pulmonary on board Problems reviewed: Yes Code(s): J96.10 - CHRONIC RESPIRATORY FAILURE, UNSP W HYPOXIA OR HYPERCAPNIA (3) ESRD (end stage renal disease) on dialysis Assessment/Plan: -MWF or as per nephrology Problems reviewed: Yes Code(s): N18.6 - END STAGE RENAL DISEASE; Z99.2 - DEPENDENCE ON RENAL DIALYSIS (4) Gastrostomy in place Problems reviewed: Yes Code(s): Z93.1 - GASTROSTOMY STATUS (5) UTI (urinary tract infection) Assessment/Plan: -UA +3 blood, + leuks, + 3 protein -UC: Microbiology 04/28/20 12:50 Urine Culture - Preliminary Urine - Urine Mattehw Streptococcus Species 04/28/20 01:30 Blood Culture - Preliminary Blood - Peripheral Venous NO GROWTH OBTAINED AFTER 72 HOURS, INCUBATION TO CONTINUE FOR 2 DAYS. 04/28/20 01:30 Blood Culture - Preliminary Blood - Peripheral Venous NO GROWTH OBTAINED AFTER 72 HOURS, INCUBATION TO CONTINUE FOR 2 DAYS. -IV abx -Maintain matthew for retention Problems reviewed: Yes Code(s): N39.0 - URINARY TRACT INFECTION, SITE NOT SPECIFIED (6) Pneumonia Assessment/Plan: -ID on board -Repeat CXR -IV abx -Afebrile Problems reviewed: Yes Code(s): J18.9 - PNEUMONIA, UNSPECIFIED ORGANISM (7) Hematuria Assessment/Plan: -Urology consult -Renal/bladder u/s Problems reviewed: Yes Code(s): R31.9 - HEMATURIA, UNSPECIFIED (8) Stage 4 decubitus ulcer Assessment/Plan: -Vascular surgery consult -Plastic surgery consult -Possible wound vac -Offloading -Rectal tube if diarrhea occurs Problems reviewed: Yes Code(s): L89.94 - PRESSURE ULCER OF UNSPECIFIED SITE, STAGE 4 Assessment/Plan See problem list
--- NOTE | 2020-05-01 16:11 | CON.GU ---
Consult Consult Specialty:: Reason for Consultation:: hematuria - History of Present Illness History of Present Illness: 64 y/o male from [facility] with a PMHx of ESRD (HD- MWF), Chronic Respiratory Failure s/p Trach- Vent dependent, CVA, HTN, HLD, GERD, Pneumonia, Sepsis, Covid + (12/21/19). Who presents to the ED for low H/H x 2 days. Per [place] records patient's Hgb was 7.5. Patient is trach- vent dependent (non-verbal) unable to provide HPI. In the ED Hgb was 6.6, Stool Occult negative. PRBCs x2 ordered. cons req. 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 Cardio/Vascular: Yes: HTN, Hyperlipdemia Pulmonary: Yes: O2 Dependent (Trach- Vent), Pneumonia, Other (trach) Gastrointestinal: Yes: GERD, Other (PEG) Renal/: Yes: Renal Failure, Hemodialysis Infectious Disease: Yes: Other (COVID 19 01/08) - Past Surgical History Past Surgical History: Yes: None Additional Surgical History: tracheostomy - Alcohol/Substance Use Hx Alcohol Use: No (Unknown hx) History of Substance Use: reports: None (Unknown hx) - Smoking History Smoking history: Unknown if ever smoked - Social History Usual Living Arrangement: [facility] ADL: Support Services History of Recent Travel: No Home Medications - Allergies Allergies/Adverse Reactions: Allergies Allergy/AdvReac Type Severity Reaction Status Date / Time No Known Allergies Allergy Verified 04/27/20 17:19 - Home Medications Home Medications: Ambulatory Orders Acetaminophen [Tylenol] 650 mg GT Q6H PRN 04/27/20 Albuterol 2.5/Ipratropium 0.5 [Duoneb -] 1 neb IH QID 04/27/20 Atorvastatin Ca [Lipitor] 40 mg GT HS 04/27/20 Calcium Acetate 667 mg GT TID 04/27/20 Esomeprazole Magnesium [Nexium 24Hr] 40 mg GT DAILY 04/27/20 Levetiracetam 500 mg GT DAILY 04/27/20 Levetiracetam [Spritam] 250 mg GT 04/27/20 Metoprolol Tartrate [Lopressor -] 12.5 mg GT BID 04/27/20 Midodrine HCl 10 mg GT TID 04/27/20 Polyethylene Glycol 3350 [Clearlax] 17 gm GT DAILY 04/27/20 Sennosides [Senna] 17.2 mg GT HS 04/27/20 Physical Exam- Vital Signs: Vital Signs Temperature 97.7 F 05/01/20 14:00 Pulse Rate 100 H 05/01/20 14:00 Respiratory Rate 25 H 05/01/20 14:00 Blood Pressure 150/96 05/01/20 14:00 O2 Sat by Pulse Oximetry (%) 100 05/01/20 14:00 Constitutional: Yes: Well Nourished, No Distress, Calm Gastrointestinal: Yes: Normal Bowel Sounds, Soft Renal/: Yes: Metzger Present. No: Hematuria Kidneys: Yes: WNL Pelvis: Yes: WNL, Bladder Non Palpable Testicles: Yes: WNL Scrotum: Yes: WNL Penis: Yes: WNL Prostate Exam: Yes: Deferred Labs: CBC, BMP 05/01/20 07:20 05/01/20 07:20 Problem List - Problems (1) Hematuria Assessment/Plan: ur cytology, renal u/s f/u for cystoscopy Code(s): R31.9 - HEMATURIA, UNSPECIFIED (2) ESRD (end stage renal disease) on dialysis Code(s): N18.6 - END STAGE RENAL DISEASE; Z99.2 - DEPENDENCE ON RENAL DIALYSIS (3) Tracheostomy dependent Code(s): Z93.0 - TRACHEOSTOMY STATUS
[2020-05-01] MEDS: ATORVASTATIN CA 40 MG TABLET (FP) GT SCH (22:44)
[2020-05-02] MEDS ORDERED: DEXTROSE 5%-WATER - 50 ML IVPB ONE ×2 (02:16→09:59)
[2020-05-02] MEDS ORDERED: PIPERACILLIN/TAZOBACTAM 2.25 GM VIAL IVPB ONE ×2 (02:16→09:59)
[2020-05-02] MEDS: PIPERACILLIN/TAZOB 2.25 GM 2.25 GM in DEXTROSE 5%-WATER - 50 ML IVPB SCH ×2 (03:11→10:48)
[2020-05-02] MEDS: levETIRAcetam 500 MG/5 ML ORAL SOLUTION (UNIT-DOSE CUPS) GT SCH (06:25)
--- NOTE | 2020-05-02 09:51 | PN ---
Progress Note, Physician History of Present Illness: pulmonary poorly responsive on vent support ac mode - Current Medication List Current Medications: Active Medications Amino Acids (Prosource No Carb Liquid Pkt) 30 ml GT DAILY [facility] Last Admin: 05/01/20 11:33 Dose: 30 ml Documented by: Amlodipine Besylate (Norvasc -) 5 mg GT DAILY [facility] Last Admin: 05/01/20 11:34 Dose: 5 mg Documented by: Atorvastatin Calcium (Lipitor -) 40 mg GT HS [facility] Last Admin: 05/01/20 22:44 Dose: 40 mg Documented by: Collagenase (Santyl -) 1 applic TP DAILY [facility]; Protocol Ferrous Sulfate (Feosol) 300 mg GT BID [facility] Last Admin: 05/01/20 22:44 Dose: 300 mg Documented by: Piperacillin Sod/Tazobactam (Sod 2.25 gm/ Dextrose) 50 mls @ 100 mls/hr IVPB Q8H-IV [facility]; Protocol Last Admin: 05/02/20 03:11 Dose: 100 mls/hr Documented by: Levetiracetam (Keppra Oral Solution -) 500 mg GT DAILY@0600 [facility] Last Admin: 05/02/20 06:25 Dose: 500 mg Documented by: Levetiracetam (Keppra Oral Solution -) 250 mg GT TUTHSA@1800 [facility] Last Admin: 05/01/20 17:33 Dose: 250 mg Documented by: Metoprolol Tartrate (Lopressor -) 12.5 mg GT BID [facility] Last Admin: 05/01/20 22:44 Dose: 12.5 mg Documented by: Pantoprazole Sodium (Protonix Iv) 40 mg IVPUSH DAILY [facility] Last Admin: 05/01/20 11:33 Dose: 40 mg Documented by: - Objective Vital Signs: Vital Signs Temperature 97.4 F L 05/02/20 06:00 Pulse Rate 101 H 05/02/20 06:00 Respiratory Rate 24 H 05/02/20 08:27 Blood Pressure 156/97 05/02/20 06:00 O2 Sat by Pulse Oximetry (%) 100 05/02/20 08:27 Constitutional: Yes: Well Nourished, Other (poorly responsive) Eyes: Yes: WNL HENT: Yes: WNL Neck: Yes: Supple (trach) Cardiovascular: Yes: Regular Rate and Rhythm, S1, S2 Respiratory: Yes: Diminished Gastrointestinal: Yes: Normal Bowel Sounds, Soft Extremities: Yes: WNL Edema: No Labs: CBC, BMP 05/01/20 07:20 Problem List - Problems (1) Anemia Code(s): D64.9 - ANEMIA, UNSPECIFIED Qualifiers: Anemia type: other cause Other causes of anemia: other cause, not classified Qualified Code(s): D64.89 - Other specified anemias (2) Chronic respiratory failure Code(s): J96.10 - CHRONIC RESPIRATORY FAILURE, UNSP W HYPOXIA OR HYPERCAPNIA (3) ESRD (end stage renal disease) on dialysis Code(s): N18.6 - END STAGE RENAL DISEASE; Z99.2 - DEPENDENCE ON RENAL DIALYSIS (4) Encounter for screening laboratory testing for COVID-19 virus Code(s): Z11.59 - ENCOUNTER FOR SCREENING FOR OTHER VIRAL DISEASES (5) GERD (gastroesophageal reflux disease) Code(s): K21.9 - GASTRO-ESOPHAGEAL REFLUX DISEASE WITHOUT ESOPHAGITIS (6) HLD (hyperlipidemia) Code(s): E78.5 - HYPERLIPIDEMIA, UNSPECIFIED (7) HTN (hypertension) Code(s): I10 - ESSENTIAL (PRIMARY) HYPERTENSION (8) Pneumonia Code(s): J18.9 - PNEUMONIA, UNSPECIFIED ORGANISM Assessment/Plan IMP CHRONIC RESPIRATORY FAILURE H/O COVID 19 H/O PNEUMONIA UTI ANEMIA ESRD ON HD H/O CVA HTN HLD PLAN VENT SUPPORT ON A MODE INHALED BRONCHODILATORS ABX NORMAL TRANSFUSION THRESHOLD MONITOR H+H,LYTES F/U CHEST X-RAYS HD PER RENAL DR LAMAR
[2020-05-02] MEDS: PANTOPRAZOLE SODIUM 40 MG VIAL IVPUSH SCH (10:37)
[2020-05-02 10:46] LABS: BILIRUBIN,TOTAL 0.4 mg/dL (0.2-1); BLOOD UREA NITROGEN 47.7 mg/dL (7-18); CALCIUM 9.9 mg/dL (8.5-10.1); CREATININE 2.6 mg/dL (0.55-1.3); POTASSIUM 4.1 mmol/L (3.5-5.1); TOT PROT 6.9 g/dl (6.4-8.2)
--- NOTE | 2020-05-02 10:49 | CONSULT ---
Consultation: REQUESTING PROVIDER: Dr. Russell CONSULT REQUEST: We have been asked to medically evaluate this patient for anemia. HISTORY OF PRESENT ILLNESS: Patient is a 64 year old male with past medical history of ESRD (HD- MWF), Chronic Respiratory Failure s/p Trach- Vent dependent, CVA, HTN, HLD, GERD, Pneumonia, Sepsis, Covid + (12/21/19), brought in BIBEMS from [facility] for low H/H x 2 days. Patient is trach-vent dependent (non-verbal) unable to provide HPI. In the ED Hgb was 6.6, Stool Occult negative and 3u pRBCs transfused. Since admission, patient was noted to have gross hematuria, as well as a weeping sacral decubitus ulcer. He was evaluated also by GI recommended EGD/colonoscopy to exclude GI sources of anemia. Urology was consulted and recommended cystoscopy. Renal/bladder US done showed b/l kidneys consistent with chronic medical renal disease with no hydronephrosis or kidney stones noted. PMHx: ESRD (HD- MWF), Chronic Respiratory Failure s/p Trach- Vent dependent, CVA, HTN, HLD, GERD, Pneumonia, Sepsis, Covid + (12/21/19) PSHx: Tracheostomy Allergies:NKDA SHx: from [facility] FHx: unable to obtain REVIEW OF SYSTEMS: unable to obtain PHYSICAL EXAMINATION Vital Signs - 24 hr 05/01/20 05/01/20 05/01/20 10:45 10:50 13:03 Temperature Pulse Rate 76 71 Respiratory 20 20 20 Rate Blood Pressure 119/62 121/61 O2 Sat by Pulse 100 Oximetry (%) 05/01/20 05/01/20 05/01/20 14:00 18:00 20:14 Temperature 97.7 F 97.3 F L Pulse Rate 100 H 102 H Respiratory 24 H 25 H 20 Rate Blood Pressure 150/96 143/94 O2 Sat by Pulse 100 100 100 Oximetry (%) 05/01/20 05/01/20 05/02/20 21:00 22:00 00:23 Temperature 97.5 F L Pulse Rate 104 H Respiratory 24 H 24 H 21 H Rate Blood Pressure 176/103 H O2 Sat by Pulse 100 100 Oximetry (%) 05/02/20 05/02/20 05/02/20 02:00 04:10 06:00 Temperature 97.0 F L 97.4 F L Pulse Rate 108 H 101 H Respiratory 20 20 20 Rate Blood Pressure 159/97 156/97 O2 Sat by Pulse 100 100 Oximetry (%) 05/02/20 08:27 Temperature Pulse Rate Respiratory 24 H Rate Blood Pressure O2 Sat by Pulse 100 Oximetry (%) GENERAL: Lethargic, arousable to touch, does not respond to commands NECK: trach in place LUNGS: decreased breath sound bilateral bases HEART: Regular rate and rhythm, normal S1 and S2 ABDOMEN: Soft, not distended, normoactive bowel sounds, PEG in place LOWER EXTREMITIES: 2+ pulses, warm, well-perfused. SKIN: Warm, dry, normal turgor Metzger cath draining tea colored urine. Laboratory Results - last 24 hr 04/30/20 05/01/20 07:45 07:45 Haptoglobin 283 Hep Bs Antigen Negative Hep C Ab Diagnostic 0.1 Active Medications Generic Name Dose Route Start Last Admin Trade Name Freq PRN Reason Stop Dose Admin Amino Acids 30 ml 04/30/20 10:00 05/01/20 11:33 Prosource No Carb Liquid Pkt GT 30 ml DAILY [facility] Administration Amlodipine Besylate 5 mg 04/28/20 13:15 05/01/20 11:34 Norvasc - GT 5 mg DAILY [facility] Administration Atorvastatin Calcium 40 mg 04/28/20 22:00 05/01/20 22:44 Lipitor - GT 40 mg HS [facility] Administration Collagenase 1 applic 05/02/20 10:00 Santyl - TP DAILY [facility] Protocol Ferrous Sulfate 300 mg 04/30/20 11:45 05/01/20 22:44 Feosol GT 300 mg BID [facility] Administration Piperacillin Sod/Tazobactam 50 mls @ 100 mls/hr 04/28/20 22:30 05/02/20 03:11 Sod 2.25 gm/ Dextrose IVPB 100 mls/hr Q8H-IV [facility] Administration Protocol Levetiracetam 500 mg 04/28/20 06:00 05/02/20 06:25 Keppra Oral Solution - GT 500 mg DAILY@0600 [facility] Administration Levetiracetam 250 mg 04/28/20 18:00 05/01/20 17:33 Keppra Oral Solution - GT 250 mg TUTHSA@1800 [facility] Administration Metoprolol Tartrate 12.5 mg 04/28/20 10:00 05/01/20 22:44 Lopressor - GT 12.5 mg BID [facility] Administration Pantoprazole Sodium 40 mg 04/30/20 10:00 05/01/20 11:33 Protonix Iv IVPUSH 40 mg DAILY [facility] Administration ASSESSMENT/PLAN: Patient is a 64 year old male with past medical history of ESRD (HD- MWF), Chronic Respiratory Failure s/p Trach- Vent dependent, CVA, HTN, HLD, GERD, Pneumonia, Sepsis, Covid + (12/21/19), [facility] for low H/H x 2 days. #Microcytic Anemia -Likely LINDA from hematuria/sacral ulcer, ?GI bleed, in setting of ESRD and sepsis -Iron studies revealed low iron, TSAT 16%, consistent with iron deficiency, ferritin elevated -B12, folate TSH -ferrous sulfate , procrit -Data on IV iron and acute infection is conflicting. Although risk of infection with IV iron seems to be negligible. But due to theoretical concerns of Iv iron and association with increased infection, we could delay giving IV iron until active infection resolved. -renal ultrasound revealed no stones, empty UB unable to assess bladder, with findings c/w chronic medical renal disease -uro recs Dispo: We will continue to follow the patient. Thank you for this consultative opportunity. Visit type - Emergency Visit Emergency Visit: Yes ED Registration Date: 04/27/20 Care time: The patient presented to the Emergency Department on the above date and was hospitalized for further evaluation of their emergent condition. - New Patient This patient is new to me today: Yes Date on this admission: 05/02/20 - Critical Care Critical Care patient: No ATTENDING PHYSICIAN STATEMENT I saw and evaluated the patient. I reviewed the resident's note and discussed the case with the resident. I agree with the resident's findings and plan as documented. SUBJECTIVE: OBJECTIVE: ASSESSMENT AND PLAN:
--- NOTE | 2020-05-02 11:02 | CONSULT ---
- Consultation REQUESTING PROVIDER: CONSULT REQUEST: We have been asked to surgically evaluate this patient for Stage 4 sacral ulcer PCP:Jacklyn Russell HISTORY OF PRESENT ILLNESS: 64yo M h/o COVID pneumonitis with prolonged intubation and trach. Pt currently bedbound and non-verbal. Vascular was consulted to evaluate stage 4 sacral ulcer as well as b/l leg pressure ulcers. Pt unable to give history due to non- verbal status. PMHx: ESRD (HD- MWF), Chronic Respiratory Failure s/p Trach- Vent dependent, CVA, HTN, HLD, GERD, Pneumonia, Sepsis, Covid + (12/21/19) Home Medications Medication Instructions Recorded Acetaminophen [Tylenol] 650 mg GT Q6H PRN 04/27/20 Albuterol 2.5/Ipratropium 0.5 1 neb IH QID 04/27/20 [Duoneb -] Atorvastatin Ca [Lipitor] 40 mg GT HS 04/27/20 Calcium Acetate 667 mg GT TID 04/27/20 Esomeprazole Magnesium [Nexium 40 mg GT DAILY 04/27/20 24Hr] Levetiracetam 500 mg GT DAILY 04/27/20 Levetiracetam [Spritam] 250 mg GT 04/27/20 Metoprolol Tartrate [Lopressor -] 12.5 mg GT BID 04/27/20 Midodrine HCl 10 mg GT TID 04/27/20 Polyethylene Glycol 3350 [Clearlax] 17 gm GT DAILY 04/27/20 Sennosides [Senna] 17.2 mg GT HS 04/27/20 Allergies Allergy/AdvReac Type Severity Reaction Status Date / Time No Known Allergies Allergy Verified 04/27/20 17:19 PHYSICAL EXAM: GENERAL: Awake, oriented to voice, nonverbal HEAD: Normal with no signs of trauma. EYES: PERRL, sclera anicteric, conjunctiva clear. NECK: supple without lymphadenopathy, JVD, or masses. Trach and collar in place. LUNGS: vented BACK: 14cm x 10cm x 6cm stage 4 sacral ulcer, some fibrinous tissue at base, mostly granulation tissue. serous drainage LOWER EXTREMITIES: Lt lateral ankle 7cm x 2cm ulcer with eschar serous drainage, no erythema, RT lateral ankle 7cm x 1cm ulcer with serous drainage. warm, well-perfused. NEUROLOGICAL: Normal speech, gait not observed. PSYCH: Cooperative. Good eye contact. Appropriate mood and affect. SKIN: Warm, dry, normal turgor, no rashes or lesions noted. Vital Signs Temperature 97.4 F L 05/02/20 06:00 Pulse Rate 101 H 05/02/20 06:00 Respiratory Rate 24 H 05/02/20 08:27 Blood Pressure 156/97 05/02/20 06:00 O2 Sat by Pulse Oximetry (%) 100 05/02/20 08:27 Lab Results WBC 10.1 K/mm3 (4.0-10.0) H 05/01/20 07:20 RBC 3.19 M/mm3 (4.00-5.60) L 05/01/20 07:20 Hgb 8.1 GM/dL (11.7-16.9) L 05/01/20 07:20 Hct 25.4 % (35.4-49) L 05/01/20 07:20 MCV 79.6 fl (80-96) L 05/01/20 07:20 MCHC 31.9 g/dl (32.0-35.9) L 05/01/20 07:20 RDW 19.3 % (11.9-15.9) H 05/01/20 07:20 Plt Count 445 K/MM3 (134-434) H 05/01/20 07:20 INR 1.06 (0.83-1.09) 04/27/20 16:22 Sodium 131 mmol/L (136-145) L 05/01/20 07:20 Potassium 3.7 mmol/L (3.5-5.1) 05/01/20 07:20 Chloride 95 mmol/L (98-107) L 05/01/20 07:20 Carbon Dioxide 25 mmol/L (21-32) 05/01/20 07:20 Anion Gap 11 MMOL/L (8-16) 05/01/20 07:20 BUN 72.5 mg/dL (7-18) H 05/01/20 07:20 Creatinine 3.5 mg/dL (0.55-1.3) H 05/01/20 07:20 Random Glucose 112 mg/dL (74-106) H 05/01/20 07:20 Calcium 9.4 mg/dL (8.5-10.1) 05/01/20 07:20 Blood Type AB POSITIVE 04/27/20 16:30 Antibody Screen Negative 04/27/20 16:30 Problem List - Problems (1) Stage 4 decubitus ulcer Assessment/Plan: Plan Sacral Ulcer/DTI Plan Will try Santyl for a couple days then try to place VAC dressing on Friday 05/04, may be difficult due to proximity to rectum -Reposition every two hours while in bed -Air mattress recommended -Use drawsheets and Trendelenburg when repositioning to reduce friction and shear -Manageincontinence via timely cleansing, use of appropriate incontinence disposables and use of barrier ointment to intact skin -Ensure adequate hydration/nutrition, supplementation per primary team -Ensure off-loading to all bony areas (heels, ankles, hips and tailbone) with Allevyn/Optifoam -Clean open wounds with normal saline and apply (santyl) Code(s): L89.94 - PRESSURE ULCER OF UNSPECIFIED SITE, STAGE 4 (2) Pressure ulcer of right leg, stage 2 Code(s): L89.892 - PRESSURE ULCER OF OTHER SITE, STAGE 2 (3) Pressure ulcer of left leg, unstageable Code(s): L89.890 - PRESSURE ULCER OF OTHER SITE, UNSTAGEABLE
--- NOTE | 2020-05-02 11:14 | PN ---
Progress Note, Physician Chief Complaint: Anemia ESRD Chronic resp failure History of Present Illness: This is a 64 y/o male from [facility] with a PMHx of ESRD (HD- MWF), Chronic Respiratory Failure s/p Trach- Vent dependent, CVA, HTN, HLD, GERD, Pneumonia, Sepsis, Covid + (12/21/19). Who presents to the ED for low H/H x 2 days. Per [place] records patient's Hgb was 7.5. Patient is trach- vent dependent (non-verbal) unable to provide HPI. In the ED Hgb was 6.6, Stool Occult negative. PRBCs x2 ordered. NAD- opens eyes to verbal stimuli Pablo hematuria continue- decrease urine output 2/2 to ESRD Seen by Urology Renal/bladder U/S no gross lesions Holding his H/H - Current Medication List Current Medications: Active Medications Amino Acids (Prosource No Carb Liquid Pkt) 30 ml GT DAILY [facility] Last Admin: 05/01/20 11:33 Dose: 30 ml Documented by: Amlodipine Besylate (Norvasc -) 5 mg GT DAILY [facility] Last Admin: 05/01/20 11:34 Dose: 5 mg Documented by: Atorvastatin Calcium (Lipitor -) 40 mg GT HS [facility] Last Admin: 05/01/20 22:44 Dose: 40 mg Documented by: Collagenase (Santyl -) 1 applic TP DAILY [facility]; Protocol Ferrous Sulfate (Feosol) 300 mg GT BID [facility] Last Admin: 05/01/20 22:44 Dose: 300 mg Documented by: Piperacillin Sod/Tazobactam (Sod 2.25 gm/ Dextrose) 50 mls @ 100 mls/hr IVPB Q8H-IV [facility]; Protocol Last Admin: 05/02/20 10:48 Dose: 100 mls/hr Documented by: Levetiracetam (Keppra Oral Solution -) 500 mg GT DAILY@0600 [facility] Last Admin: 05/02/20 06:25 Dose: 500 mg Documented by: Levetiracetam (Keppra Oral Solution -) 250 mg GT TUTHSA@1800 [facility] Last Admin: 05/01/20 17:33 Dose: 250 mg Documented by: Metoprolol Tartrate (Lopressor -) 12.5 mg GT BID [facility] Last Admin: 05/01/20 22:44 Dose: 12.5 mg Documented by: Pantoprazole Sodium (Protonix Iv) 40 mg IVPUSH DAILY [facility] Last Admin: 05/02/20 10:37 Dose: 40 mg Documented by: - Objective Vital Signs: Vital Signs Temperature 97.4 F L 05/02/20 10:00 Pulse Rate 101 H 05/02/20 10:00 Respiratory Rate 22 H 05/02/20 10:00 Blood Pressure 171/77 H 05/02/20 10:00 O2 Sat by Pulse Oximetry (%) 100 05/02/20 10:00 Constitutional: Yes: Well Nourished, No Distress, Calm, Obese Cardiovascular: Yes: Regular Rate and Rhythm Respiratory: Yes: Regular, Mechanically Ventilated, Rhonchi (diffuse) Gastrointestinal: Yes: Normal Bowel Sounds, Soft, Abdomen, Obese Genitourinary: Yes: Matthew Present, Hematuria Musculoskeletal: Yes: Muscle Weakness Extremities: Yes: Other (generalized atrophy) Edema: No Peripheral Pulses WNL: Yes Neurological: Yes: Pre-Existing Deficit Labs: CBC, BMP 05/01/20 07:20 05/02/20 09:00 INR, PTT INR 1.06 (0.83-1.09) 04/27/20 16:22 Problem List - Problems (1) Anemia Assessment/Plan: -LINDA + ESRD -Procrit as per nephrology -Start Ferrous sulfate BID -Transfuse only if Hg<7.0 to avoid fluid overload -Stool OB negative -B12 and thyroid profile normal -Monitor trend -Seen by GI -PPI -Hold parenteral AC -2/2 to blood loss in urine -Hematology consult -Urology consult Problems reviewed: Yes Code(s): D64.9 - ANEMIA, UNSPECIFIED Qualifiers: Anemia type: other cause Other causes of anemia: other cause, not classified Qualified Code(s): D64.89 - Other specified anemias (2) Chronic respiratory failure [facility] Problems reviewed: Yes Code(s): J96.10 - CHRONIC RESPIRATORY FAILURE, UNSP W HYPOXIA OR HYPERCAPNIA (3) ESRD (end stage renal disease) on dialysis Assessment/Plan: -MWF or as per nephrology Problems reviewed: Yes Code(s): N18.6 - END STAGE RENAL DISEASE; Z99.2 - DEPENDENCE ON RENAL DIALYSIS (4) Gastrostomy in place Problems reviewed: Yes Code(s): Z93.1 - GASTROSTOMY STATUS (5) UTI (urinary tract infection) Assessment/Plan: -UA +3 blood, + leuks, + 3 protein -UC: Microbiology 04/28/20 12:50 Urine Culture - Final Urine - Urine Matthew Vr Ec Faecalis 04/28/20 01:30 Blood Culture - Preliminary Blood - Peripheral Venous NO GROWTH OBTAINED AFTER 96 HOURS, INCUBATION TO CONTINUE FOR 1 DAYS. 04/28/20 01:30 Blood Culture - Preliminary Blood - Peripheral Venous NO GROWTH OBTAINED AFTER 96 HOURS, INCUBATION TO C ONTINUE FOR 1 DAYS. -IV abx -Maintain matthew for retention Problems reviewed: Yes Code(s): N39.0 - URINARY TRACT INFECTION, SITE NOT SPECIFIED (6) Pneumonia Assessment/Plan: -ID on board -Repeat CXR improved aeration -IV abx -Afebrile Problems reviewed: Yes Code(s): J18.9 - PNEUMONIA, UNSPECIFIED ORGANISM (7) Hematuria Assessment/Plan: -Urology consult appreciated -Renal/bladder u/s reviewed- no gross masses or lesions -Cystoscopy as per urology Problems reviewed: Yes Code(s): R31.9 - HEMATURIA, UNSPECIFIED (8) Stage 4 decubitus ulcer Assessment/Plan: -Vascular surgery consult appreciated -Plastic surgery consult -Possible wound vac -Offloading -Rectal tube -Santyl -Wound vac Problems reviewed: Yes Code(s): L89.94 - PRESSURE ULCER OF UNSPECIFIED SITE, STAGE 4 (9) HTN (hypertension) Assessment/Plan: -Increase Lopressor to 25 mg po BID Problems reviewed: Yes Code(s): I10 - ESSENTIAL (PRIMARY) HYPERTENSION Assessment/Plan See problem list
[2020-05-02] MEDS: METOPROLOL TARTRATE 25 MG TABLET (FP) GT SCH (11:16)
[2020-05-02] MEDS: FERROUS SO4 300 MG/5 ML ORAL SOLN UNIT DOSE CUPS GT SCH ×2 (11:16→21:50)
[2020-05-02] MEDS: amLODIPine BESYLATE 5 MG TABLET (FP) GT SCH (11:16)
[2020-05-02] MEDS: AMINO ACIDS/PROTEIN HYDROLYS 30 ML LIQUID.PKT GT SCH (11:19)
[2020-05-02] MEDS ORDERED: METOPROLOL TARTRATE 25 MG TABLET (FP) GT ONE (11:54)
[2020-05-02 12:08] LABS: BASO % 0.8 % (0-2.0); EOS % 6.3 % (0-4.5); HEMOGLOBIN 7.7 GM/dL (11.7-16.9); LYMPH % 12.3 % (8-40); MCH 24.3 pg (25.7-33.7); MCHC 30.6 g/dl (32.0-35.9); MEAN CELL VOLUME 79.2 fl (80-96); MEAN PLT VOLUME 6.2 fl (7.5-11.1); MONO % 5.6 % (3.8-10.2); PLATELET COUNT 398 K/MM3 (134-434); RBC 3.16 M/mm3 (4.00-5.60); RDW 18.9 % (11.9-15.9); WHITE BLOOD COUNT 9.7 K/mm3 (4.0-10.0)
[2020-05-02] MEDS: COLLAGENASE CLOSTRIDIUM HIST. 30 GRAMS TUBE TP SCH (14:21)
--- NOTE | 2020-05-02 14:31 | PN ---
Progress Note (short form) - Note Progress Note: NAD trach to vent permacath now with hematuria Vital Signs Period Temp Pulse Resp BP Sys/Pimentel Pulse Ox Last 24 Hr 97.0 F-97.5 F 101-108 20-25 143-176/77-103 100-100 cor-rrr llungs clear abd soft,nt ext no edema matthew with hematuria CBC, BMP 05/02/20 10:50 05/02/20 09:00 Microbiology 04/28/20 12:50 Urine - Urine Matthew Urine Culture - Final Vr Ec Faecalis 04/28/20 01:30 Blood - Peripheral Venous Blood Culture - Preliminary NO GROWTH OBTAINED AFTER 96 HOURS, INCUBATION TO CONTINUE FOR 1 DAYS. 04/28/20 01:30 Blood - Peripheral Venous Blood Culture - Preliminary NO GROWTH OBTAINED AFTER 96 HOURS, INCUBATION TO CONTINUE FOR 1 DAYS. 04/28/20 04:55 Sputum - Endotrachea Suction/Ventilator Gram Stain - Final 04/28/20 04:55 Sputum - Endotrachea Suction/Ventilator Sputum Culture - Fi nal Pseudomonas Aeruginosa a/p hematuroa chronic resp failure r/o pneumonia vre uti anemia contact isolation switch to ampicillin for VRE Problem List - Problems (1) Anemia Code(s): D64.9 - ANEMIA, UNSPECIFIED Qualifiers: Anemia type: other cause Other causes of anemia: other cause, not classified Qualified Code(s): D64.89 - Other specified anemias (2) Chronic respiratory failure Code(s): J96.10 - CHRONIC RESPIRATORY FAILURE, UNSP W HYPOXIA OR HYPERCAPNIA (3) Pneumonia Code(s): J18.9 - PNEUMONIA, UNSPECIFIED ORGANISM (4) History of 2019 novel coronavirus disease (COVID-19) Code(s): Z86.19 - PERSONAL HISTORY OF OTHER INFECTIOUS AND PARASITIC DISEASES (5) ESRD (end stage renal disease) on dialysis Code(s): N18.6 - END STAGE RENAL DISEASE; Z99.2 - DEPENDENCE ON RENAL DIALYSIS
--- NOTE | 2020-05-02 15:33 | PN ---
Progress Note (short form) - Note Progress Note: RENAL Pt is awake and alert comfortable remains trached makes eye contact Last Vital Signs Temp Pulse Resp BP Pulse Ox 97.4 F L 101 H 20 171/77 H 100 05/02/20 10:00 05/02/20 10:00 05/02/20 12:57 05/02/20 10:00 05/02/20 12:57 lungs clear cvs s1s2 rr abd soft ext no edema neuro a+ox3 CBC, BMP 05/02/20 10:50 05/02/20 09:00 Current Medications Generic Name Dose Route Start Last Admin Trade Name Freq PRN Reason Stop Dose Admin Amino Acids 30 ml 04/30/20 10:00 05/02/20 11:19 Prosource No Carb Liquid Pkt GT 30 ml DAILY [facility] Administration Amlodipine Besylate 5 mg 04/28/20 13:15 05/02/20 11:16 Norvasc - GT 5 mg DAILY [facility] Administration Atorvastatin Calcium 40 mg 04/28/20 22:00 05/01/20 22:44 Lipitor - GT 40 mg HS [facility] Administration Collagenase 1 applic 05/02/20 10:00 05/02/20 14:21 Santyl - TP 1 applic DAILY [facility] Administration Protocol Ferrous Sulfate 300 mg 04/30/20 11:45 05/02/20 11:16 Feosol GT 300 mg BID [facility] Administration Ampicillin Sodium 1 gm/ Sodium 100 mls @ 200 mls/hr 05/02/20 14:45 Chloride IVPB BID [facility] Protocol Levetiracetam 500 mg 04/28/20 06:00 05/02/20 06:25 Keppra Oral Solution - GT 500 mg DAILY@0600 [facility] Administration Levetiracetam 250 mg 04/28/20 18:00 05/01/20 17:33 Keppra Oral Solution - GT 250 mg TUTHSA@1800 [facility] Administration Metoprolol Tartrate 25 mg 05/02/20 22:00 Lopressor - PO BID [facility] Pantoprazole Sodium 40 mg 04/30/20 10:00 05/02/20 10:37 Protonix Iv IVPUSH 40 mg DAILY [facility] Administration IMPRESSION 1. Acute on chronic anemia 2. ESRD on HD 3. Hypokalemia 4. Chronic respiratory failure on vent 5. Hypertension 6. VREF in urine sensitive to ampicillin 7. pseudomonas in trach Plan - HD tomorrow - cont vent support - cont feeds - monitor lytes - bp is stable, cont current meds -continue ampicillin MV
[2020-05-02] MEDS ORDERED: EPOETIN ALFA-EPBX 3,000 UNIT/ML VIAL SQ ONE (15:35)
[2020-05-02] MEDS: AMPICILLIN - 1 GM in SODIUM CHLORIDE 100 ML IVPB SCH ×2 (16:31→21:50)
--- NOTE | 2020-05-02 20:08 | PN ---
Teaching Attending Note Name of Resident: Jaida Perez ATTENDING PHYSICIAN STATEMENT I saw and evaluated the patient. I reviewed the resident's note and discussed the case with the resident. I agree with the resident's findings and plan as documented. ASSESSMENT AND PLAN: Patient is a 64 year old male with past medical history of ESRD (HD- MWF), Chronic Respiratory Failure s/p Trach- Vent dependent, CVA, HTN, HLD, GERD, Pneumonia, Sepsis, Covid + (12/21/19), brought in BIBEMS from [facility] for anemia Being managed for hemturia/VRE UTI #Microcytic Anemia -multifactorial--anemia of chronic kidney disease +/- gi blood losses -Iron studies revealed low iron, TSAT 16%, consistent with iron deficiency, Ferritin in 1000s -B12, folate TSH --normal would hold off on iv iron supplementation until acute infection resolves
[2020-05-02 21:09] LABS: TRANSGLUTAMINASE IGA < 2 U/mL (0-3); TRANSGLUTAMINASE IGG 5 U/mL (0-5)
[2020-05-02] MEDS: METOPROLOL TARTRATE 25 MG TABLET (FP) PO SCH (21:50)
[2020-05-02] MEDS: ATORVASTATIN CA 40 MG TABLET (FP) GT SCH (21:50)
[2020-05-03] MEDS: levETIRAcetam 500 MG/5 ML ORAL SOLUTION (UNIT-DOSE CUPS) GT SCH ×2 (05:14→17:23)
--- NOTE | 2020-05-03 09:09 | PN ---
Progress Note, Physician Chief Complaint: Anemia ESRD Chronic resp failure History of Present Illness: This is a 64 y/o male from [facility] with a PMHx of ESRD (HD- MWF), Chronic Respiratory Failure s/p Trach- Vent dependent, CVA, HTN, HLD, GERD, Pneumonia, Sepsis, Covid + (12/21/19). Who presents to the ED for low H/H x 2 days. Per [place] records patient's Hgb was 7.5. Patient is trach- vent dependent (non-verbal) unable to provide HPI. In the ED Hgb was 6.6, Stool Occult negative. PRBCs x2 ordered. NAD- opens eyes to verbal stimuli Getting dialysis Hematuria improved, urine burnt orange- decrease urine output 2/2 to ESRD Seen by Urology Renal/bladder U/S no gross lesions mild drop in H/H - Current Medication List Current Medications: Active Medications Amino Acids (Prosource No Carb Liquid Pkt) 30 ml GT DAILY [facility] Last Admin: 05/02/20 11:19 Dose: 30 ml Documented by: Amlodipine Besylate (Norvasc -) 5 mg GT DAILY [facility] Last Admin: 05/02/20 11:16 Dose: 5 mg Documented by: Atorvastatin Calcium (Lipitor -) 40 mg GT HS [facility] Last Admin: 05/02/20 21:50 Dose: 40 mg Documented by: Collagenase (Santyl -) 1 applic TP DAILY [facility]; Protocol Last Admin: 05/02/20 14:21 Dose: 1 applic Documented by: Epoetin Ricky-epbx (Retacrit) 3,000 unit SQ ONCE ONE Stop: 05/02/20 17:01 Ferrous Sulfate (Feosol) 300 mg GT BID [facility] Last Admin: 05/02/20 21:50 Dose: 300 mg Documented by: Ampicillin Sodium 1 gm/ Sodium (Chloride) 100 mls @ 200 mls/hr IVPB BID [facility]; Protocol Last Admin: 05/02/20 21:50 Dose: 200 mls/hr Documented by: Sodium Chloride (Normal Saline -) 250 mls @ 3,000 mls/hr IV PRN PRN PRN Reason: Hypotension during Dialysis Stop: 05/03/20 15:35 Levetiracetam (Keppra Oral Solution -) 500 mg GT DAILY@0600 [facility] Last Admin: 05/03/20 05:14 Dose: 500 mg Documented by: Levetiracetam (Keppra Oral Solution -) 250 mg GT TUTHSA@1800 [facility] Last Admin: 05/01/20 17:33 Dose: 250 mg Documented by: Metoprolol Tartrate (Lopressor -) 25 mg PO BID [facility] Last Admin: 05/02/20 21:50 Dose: 25 mg Documented by: Pantoprazole Sodium (Protonix Iv) 40 mg IVPUSH DAILY [facility] Last Admin: 05/02/20 10:37 Dose: 40 mg Documented by: - Objective Vital Signs: Vital Signs Temperature 97.5 F L 05/03/20 08:46 Pulse Rate 110 H 05/03/20 08:46 Respiratory Rate 21 H 05/03/20 08:46 Blood Pressure 148/85 05/03/20 08:46 O2 Sat by Pulse Oximetry (%) 100 05/03/20 08:46 Constitutional: Yes: Well Nourished, No Distress, Calm, Obese Cardiovascular: Yes: Regular Rate and Rhythm Respiratory: Yes: Regular, Mechanically Ventilated, Rhonchi (diffuse) Gastrointestinal: Yes: Normal Bowel Sounds, Soft, Abdomen, Obese Genitourinary: Yes: Matthew Present, Hematuria Musculoskeletal: Yes: Muscle Weakness Extremities: Yes: Other (generalized atrophy) Edema: No Peripheral Pulses WNL: Yes Neurological: Yes: Pre-Existing Deficit Labs: CBC, BMP 05/02/20 10:50 05/02/20 09:00 INR, PTT INR 1.06 (0.83-1.09) 04/27/20 16:22 Problem List - Problems (1) Anemia Assessment/Plan: -LINDA + ESRD -Procrit as per nephrology -Ferrous sulfate BID -Transfuse only if Hg<7.0 to avoid fluid overload -Stool OB negative -B12 and thyroid profile normal -Monitor trend -Seen by GI -PPI -Hold parenteral AC -2/2 to blood loss in urine -Hematology consult -Urology consult Problems reviewed: Yes Code(s): D64.9 - ANEMIA, UNSPECIFIED Qualifiers: Anemia type: other cause Other causes of anemia: other cause, not classified Qualified Code(s): D64.89 - Other specified anemias (2) Chronic respiratory failure Assessment/Plan: -Mech vent -pulmonary on board Problems reviewed: Yes Code(s): J96.10 - CHRONIC RESPIRATORY FAILURE, UNSP W HYPOXIA OR HYPERCAPNIA (3) ESRD (end stage renal disease) on dialysis Assessment/Plan: -MWF or as per nephrology Problems reviewed: Yes Code(s): N18.6 - END STAGE RENAL DISEASE; Z99.2 - DEPENDENCE ON RENAL DIALYSIS (4) Gastrostomy in place Problems reviewed: Yes Code(s): Z93.1 - GASTROSTOMY STATUS (5) UTI (urinary tract infection) Assessment/Plan: -UA +3 blood, + leuks, + 3 protein -UC: Microbiology 04/28/20 12:50 Urine Culture - Final Urine - Urine Matthew Vr Ec Faecalis 04/28/20 01:30 Blood Culture - Preliminary Blood - Peripheral Venous NO GROWTH OBTAINED AFTER 96 HOURS, INCUBATION TO CONTINUE FOR 1 DAYS. 04/28/20 01:30 Blood Culture - Preliminary Blood - Peripheral Venous NO GROWTH OBTAINED AFTER 96 HOURS, INCUBATION TO CONTINUE FOR 1 DAYS. -IV ampicillin -Maintain matthew for retention Problems reviewed: Yes Code(s): N39.0 - URINARY TRACT INFECTION, SITE NOT SPECIFIED (6) Pneumonia Assessment/Plan: -ID on board -Repeat CXR improved aeration -IV abx -Afebrile Problems reviewed: Yes Code(s): J18.9 - PNEUMONIA, UNSPECIFIED ORGANISM (7) Hematuria Assessment/Plan: -Urology consult appreciated -Renal/bladder u/s reviewed- no gross masses or lesions -Cystoscopy as per urology Problems reviewed: Yes Code(s): R31.9 - HEMATURIA, UNSPECIFIED (8) Stage 4 decubitus ulcer Assessment/Plan: -Vascular surgery consult appreciated -Plastic surgery consult -Possible wound vac -Offloading -Rectal tube -Santyl -Wound vac Problems reviewed: Yes Code(s): L89.94 - PRESSURE ULCER OF UNSPECIFIED SITE, STAGE 4 (9) HTN (hypertension) Assessment/Plan: -Increase Lopressor to 25 mg po BID Problems reviewed: Yes Code(s): I10 - ESSENTIAL (PRIMARY) HYPERTENSION Assessment/Plan See problem list
[2020-05-03] MEDS ORDERED: FERRIC CARBOXYMALTOSE 750 MG in SODIUM CHLORIDE 250 ML IVPB ONE (09:10)
[2020-05-03] MEDS ORDERED: PT OWN MED DRAWER 7, Y5N ONE ×2 (09:13→22:45)
[2020-05-03] MEDS: AMINO ACIDS/PROTEIN HYDROLYS 30 ML LIQUID.PKT GT SCH (09:17)
[2020-05-03] MEDS: FERROUS SO4 300 MG/5 ML ORAL SOLN UNIT DOSE CUPS GT SCH ×2 (09:17→23:03)
[2020-05-03] MEDS: PANTOPRAZOLE SODIUM 40 MG VIAL IVPUSH SCH (09:17)
[2020-05-03] MEDS ORDERED: SODIUM CHLORIDE 250 ML IV PRN (10:11)
[2020-05-03 10:33] LABS: BASO % 0.4 % (0-2.0); EOS % 8.3 % (0-4.5); HEMATOCRIT 25.2 % (35.4-49); HEMOGLOBIN 7.8 GM/dL (11.7-16.9); MCH 24.6 pg (25.7-33.7); MEAN CELL VOLUME 79.4 fl (80-96); MEAN PLT VOLUME 6.2 fl (7.5-11.1); NEUT % 74.3 % (42.8-82.8); PLATELET COUNT 417 K/MM3 (134-434); RBC 3.18 M/mm3 (4.00-5.60); RDW 19.1 % (11.9-15.9); WHITE BLOOD COUNT 9.9 K/mm3 (4.0-10.0)
[2020-05-03] MEDS ORDERED: EPOETIN ALFA-EPBX 3,000 UNIT/ML VIAL SQ ONE (11:00)
--- NOTE | 2020-05-03 11:06 | PN ---
Progress Note (short form) - Note Progress Note: RENAL Pt is awake and alert comfortable remains trached makes eye contact currently on hemodialysis Last Vital Signs Temp Pulse Resp BP Pulse Ox 97.5 F L 106 H 20 125/87 100 05/03/20 08:46 05/03/20 10:45 05/03/20 10:45 05/03/20 10:45 05/03/20 08:46 lungs diminished breath sounds cvs s1s2 rr abd soft ext no edema in LE neuro a+ox3 CBC, BMP 05/03/20 10:02 Current Medications Generic Name Dose Route Start Last Admin Trade Name Freq PRN Reason Stop Dose Admin Amino Acids 30 ml 04/30/20 10:00 05/03/20 09:17 Prosource No Carb Liquid Pkt GT 30 ml DAILY [facility] Administration Amlodipine Besylate 5 mg 04/28/20 13:15 05/02/20 11:16 Norvasc - GT 5 mg DAILY [facility] Administration Atorvastatin Calcium 40 mg 04/28/20 22:00 05/02/20 21:50 Lipitor - GT 40 mg HS [facility] Administration Collagenase 1 applic 05/02/20 10:00 05/02/20 14:21 Santyl - TP 1 applic DAILY [facility] Administration Protocol Ferrous Sulfate 300 mg 04/30/20 11:45 05/03/20 09:17 Feosol GT 300 mg BID [facility] Administration Ampicillin Sodium 1 gm/ Sodium 100 mls @ 200 mls/hr 05/02/20 14:45 05/02/20 21:50 Chloride IVPB 200 mls/hr BID [facility] Administration Protocol Levetiracetam 500 mg 04/28/20 06:00 05/03/20 05:14 Keppra Oral Solution - GT 500 mg DAILY@0600 [facility] Administration Levetiracetam 250 mg 04/28/20 18:00 05/01/20 17:33 Keppra Oral Solution - GT 250 mg TUTHSA@1800 [facility] Administration Metoprolol Tartrate 25 mg 05/02/20 22:00 05/02/20 21:50 Lopressor - PO 25 mg BID [facility] Administration Pantoprazole Sodium 40 mg 04/30/20 10:00 05/03/20 09:17 Protonix Iv IVPUSH 40 mg DAILY [facility] Administration IMPRESSION 1. Acute on chronic anemia 2. ESRD on HD 3. Hypokalemia 4. Chronic respiratory failure on vent 5. Hypertension 6. VREF in urine sensitive to ampicillin 7. pseudomonas in trach Plan - continue HD, note pt is oliguric despite lowish creatinines - cont vent support - cont feeds - monitor lytes - bp is stable, cont current meds - continue ampicillin per ID recs - epogen 5000 MV
[2020-05-03 11:09] LABS: ALBUMIN 1.9 g/dl (3.4-5.0); BILIRUBIN,TOTAL 0.3 mg/dL (0.2-1); CALCIUM 9.8 mg/dL (8.5-10.1); CREATININE 3.1 mg/dL (0.55-1.3); POTASSIUM 3.4 mmol/L (3.5-5.1); TOT PROT 6.4 g/dl (6.4-8.2)
--- NOTE | 2020-05-03 11:13 | PN ---
Progress Note (short form) - Note Progress Note: PULMONARY Vented, awake. No fevers recorded. Vital Signs Period Temp Pulse Resp BP Sys/Pimentel Pulse Ox Last 24 Hr 97.1 F-97.9 F 80-110 20-22 125-166/79-104 97-100 Gen: vented, awake Heart: RRR Lung: decreased breath sounds at the bases Abd: soft, nontender Ext: no edema CBC, BMP 05/03/20 10:02 05/03/20 10:02 Active Medications Amino Acids (Prosource No Carb Liquid Pkt) 30 ml GT DAILY [facility] Last Admin: 05/03/20 09:17 Dose: 30 ml Documented by: Amlodipine Besylate (Norvasc -) 5 mg GT DAILY [facility] Last Admin: 05/02/20 11:16 Dose: 5 mg Documented by: Atorvastatin Calcium (Lipitor -) 40 mg GT HS [facility] Last Admin: 05/02/20 21:50 Dose: 40 mg Documented by: Collagenase (Santyl -) 1 applic TP DAILY [facility]; Protocol Last Admin: 05/02/20 14:21 Dose: 1 applic Documented by: Epoetin Ricky-epbx (Retacrit) 2,000 unit SQ ONCE ONE Stop: 05/03/20 11:07 Ferrous Sulfate (Feosol) 300 mg GT BID [facility] Last Admin: 05/03/20 09:17 Dose: 300 mg Documented by: Ampicillin Sodium 1 gm/ Sodium (Chloride) 100 mls @ 200 mls/hr IVPB BID [facility]; Protocol Last Admin: 05/02/20 21:50 Dose: 200 mls/hr Documented by: Levetiracetam (Keppra Oral Solution -) 500 mg GT DAILY@0600 [facility] Last Admin: 05/03/20 05:14 Dose: 500 mg Documented by: Levetiracetam (Keppra Oral Solution -) 250 mg GT TUTHSA@1800 [facility] Last Admin: 05/01/20 17:33 Dose: 250 mg Documented by: Metoprolol Tartrate (Lopressor -) 25 mg PO BID [facility] Last Admin: 05/02/20 21:50 Dose: 25 mg Documented by: Pantoprazole Sodium (Protonix Iv) 40 mg IVPUSH DAILY [facility] Last Admin: 05/03/20 09:17 Dose: 40 mg Documented by: A/P Chronic Respiratory Failure UTI ESRD on HD h/o COVID19 h/o CVA HTN Hyperlipidemia Anemia - continue antibiotics - monitor H/H - transfuse as needed - HD per renal - continue volume assist control - poor candidate for weaning due to mental status - enteral feeds - DVT/GI prophylaxis
[2020-05-03] MEDS ORDERED: EPOETIN ALFA-EPBX 2,000 UNIT/ML VIAL SQ ONE (11:15)
[2020-05-03] MEDS: AMPICILLIN - 1 GM in SODIUM CHLORIDE 100 ML IVPB SCH ×2 (13:43→23:03)
[2020-05-03 14:07] VITALS: BMI 38.6
[2020-05-03] MEDS: amLODIPine BESYLATE 5 MG TABLET (FP) GT SCH (14:34)
[2020-05-03] MEDS: METOPROLOL TARTRATE 25 MG TABLET (FP) PO SCH ×2 (14:34→23:03)
[2020-05-03] MEDS: COLLAGENASE CLOSTRIDIUM HIST. 30 GRAMS TUBE TP SCH (16:15)
[2020-05-03] MEDS: ATORVASTATIN CA 40 MG TABLET (FP) GT SCH (23:03)
[2020-05-04] MEDS: levETIRAcetam 500 MG/5 ML ORAL SOLUTION (UNIT-DOSE CUPS) GT SCH (05:10)
--- NOTE | 2020-05-04 08:44 | PN ---
Progress Note, Physician Chief Complaint: Anemia ESRD Chronic resp failure History of Present Illness: This is a 64 y/o male from [facility] with a PMHx of ESRD (HD- MWF), Chronic Respiratory Failure s/p Trach- Vent dependent, CVA, HTN, HLD, GERD, Pneumonia, Sepsis, Covid + (12/21/19). Who presents to the ED for low H/H x 2 days. Per [place] records patient's Hgb was 7.5. Patient is trach- vent dependent (non-verbal) unable to provide HPI. In the ED Hgb was 6.6, Stool Occult negative. PRBCs x2 ordered. NAD- opens eyes to verbal stimuli Getting dialysis Hematuria improved, urine burnt orange- decrease urine output 2/2 to ESRD Seen by Urology Renal/bladder U/S no gross lesions mild drop in H/H - Current Medication List Current Medications: Active Medications Amino Acids (Prosource No Carb Liquid Pkt) 30 ml GT BIDWM [facility] Amlodipine Besylate (Norvasc -) 5 mg GT DAILY [facility] Last Admin: 05/03/20 14:34 Dose: 5 mg Documented by: Atorvastatin Calcium (Lipitor -) 40 mg GT HS [facility] Last Admin: 05/03/20 23:03 Dose: 40 mg Documented by: Collagenase (Santyl -) 1 applic TP DAILY [facility]; Protocol Last Admin: 05/03/20 16:15 Dose: 1 applic Documented by: Ferrous Sulfate (Feosol) 300 mg GT BID [facility] Last Admin: 05/03/20 23:03 Dose: 300 mg Documented by: Ampicillin Sodium 1 gm/ Sodium (Chloride) 100 mls @ 200 mls/hr IVPB BID [facility]; Protocol Last Admin: 05/03/20 23:03 Dose: 200 mls/hr Documented by: Levetiracetam (Keppra Oral Solution -) 500 mg GT DAILY@0600 [facility] Last Admin: 05/04/20 05:10 Dose: 500 mg Documented by: Levetiracetam (Keppra Oral Solution -) 250 mg GT TUTHSA@1800 [facility] Last Admin: 05/03/20 17:23 Dose: 250 mg Documented by: Metoprolol Tartrate (Lopressor -) 25 mg PO BID [facility] Last Admin: 05/03/20 23:03 Dose: 25 mg Documented by: Pantoprazole Sodium (Protonix Iv) 40 mg IVPUSH DAILY [facility] Last Admin: 05/03/20 09:17 Dose: 40 mg Documented by: - Objective Vital Signs: Vital Signs Temperature 97.6 F 05/04/20 06:00 Pulse Rate 95 H 05/04/20 07:45 Respiratory Rate 21 H 05/04/20 07:45 Blood Pressure 145/94 05/04/20 06:00 O2 Sat by Pulse Oximetry (%) 99 05/04/20 07:45 Constitutional: Yes: Well Nourished, No Distress, Calm, Obese Cardiovascular: Yes: Regular Rate and Rhythm Respiratory: Yes: Regular, CTA Bilaterally Gastrointestinal: Yes: Normal Bowel Sounds, Soft Genitourinary: Yes: Matthew Present, Hematuria Musculoskeletal: Yes: WNL Extremities: Yes: WNL Edema: No Peripheral Pulses WNL: Yes Integumentary: Yes: Pressure Ulcer Wound/Incision: Yes: Dressing Dry and Intact Neurological: Yes: Pre-Existing Deficit Labs: CBC, BMP 05/03/20 10:02 05/03/20 10:02 INR, PTT INR 1.06 (0.83-1.09) 04/27/20 16:22 Problem List - Problems (1) Anemia Assessment/Plan: -LINDA + ESRD -Procrit as per nephrology -Ferrous sulfate BID -Transfuse only if Hg<7.0 to avoid fluid overload -Stool OB negative -B12 and thyroid profile normal -Monitor trend -Seen by GI -PPI -Hold parenteral AC -2/2 to blood loss in urine -Hematology consult -Urology consult Problems reviewed: Yes Code(s): D64.9 - ANEMIA, UNSPECIFIED Qualifiers: Anemia type: other cause Other causes of anemia: other cause, not classified Qualified Code(s): D64.89 - Other specified anemias (2) Chronic respiratory failure Assessment/Plan: -Mech vent -pulmonary on board Problems reviewed: Yes Code(s): J96.10 - CHRONIC RESPIRATORY FAILURE, UNSP W HYPOXIA OR HYPERCAPNIA (3) ESRD (end stage renal disease) on dialysis Assessment/Plan: -MWF or as per nephrology Problems reviewed: Yes Code(s): N18.6 - END STAGE RENAL DISEASE; Z99.2 - DEPENDENCE ON RENAL DIALYSIS (4) Gastrostomy in place Problems reviewed: Yes Code(s): Z93.1 - GASTROSTOMY STATUS (5) UTI (urinary tract infection) Assessment/Plan: -UA +3 blood, + leuks, + 3 protein -UC: Microbiology 04/28/20 12:50 Urine Culture - Final Urine - Urine Matthew Vr Ec Faecalis 04/28/20 01:30 Blood Culture - Preliminary Blood - Peripheral Venous NO GROWTH OBTAINED AFTER 96 HOURS, INCUBATION TO CONTINUE FOR 1 DAYS. 04/28/20 01:30 Blood Culture - Preliminary Blood - Peripheral Venous NO GROWTH OBTAINED AFTER 96 HOURS, INCUBATION TO CONTINUE FOR 1 DAYS. -IV ampicillin -Maintain matthew for retention Problems reviewed: Yes Code(s): N39.0 - URINARY TRACT INFECTION, SITE NOT SPECIFIED (6) Pneumonia Assessment/Plan: -ID on board -Repeat CXR improved aeration -IV abx -Afebrile Problems reviewed: Yes Code(s): J18.9 - PNEUMONIA, UNSPECIFIED ORGANISM (7) Hematuria Assessment/Plan: -Urology consult appreciated -Renal/bladder u/s reviewed- no gross masses or lesions -Cystoscopy as per urology Problems reviewed: Yes Code(s): R31.9 - HEMATURIA, UNSPECIFIED (8) Stage 4 decubitus ulcer Assessment/Plan: -Vascular surgery consult appreciated -Plastic surgery consult -Offloading -Rectal tube -Santyl -Wound vac Problems reviewed: Yes Code(s): L89.94 - PRESSURE ULCER OF UNSPECIFIED SITE, STAGE 4 (9) HTN (hypertension) Assessment/Plan: -Increase Lopressor to 25 mg po BID Problems reviewed: Yes Code(s): I10 - ESSENTIAL (PRIMARY) HYPERTENSION Assessment/Plan See problem list
--- NOTE | 2020-05-04 09:00 | PN ---
Progress Note (short form) - Note Progress Note: WOUND CARE - David Duong 64yo M h/o COVID pneumonitis with prolonged intubation and trach. Pt currently bedbound and non-verbal. Stage 4 sacral ulcer as well as b/l leg pressure ulcers. Last Vital Signs Temp Pulse Resp BP Pulse Ox 97.6 F 95 H 21 H 145/94 99 05/04/20 06:00 05/04/20 07:45 05/04/20 07:45 05/04/20 06:00 05/04/20 07:45 PE: GEN: Awake, oriented to voice, nonverbal NECK: supple without lymphadenopathy, JVD, or masses. Trach and collar in place. LUNGS: vented BACK: 14cm x 10cm x 6cm stage 4 sacral ulcer, some fibrinous tissue at base, mostly granulation tissue. serous drainage. Not malodorous. No undermining LE: Lt lateral ankle 7cm x 2cm ulcer with eschar serous drainage, no erythema, RT lateral ankle 7cm x 1cm ulcer with serous drainage. warm, well-perfused. RECTAL: tube in place (liquid stool) Problem List - Problems (1) Stage 4 decubitus ulcer Assessment/Plan: Patient with large stage 4 sacral ulcer 14cm x 10cm x 6cm. Has island of skin between inferior border of wound and superior rim of anus. However, stool is seeping out around rectal tube and continues to contaminate wound. Will attempt wound VAC placement today. If this fails, will speak with family about diverting colosotomy to improve the local hygiene around his Stage IV pressure ulcer in the expectation that this will aid in wound healing. If the latter is needed, will reach out to Dr. Sanchez (General Surgery). Code(s): L89.94 - PRESSURE ULCER OF UNSPECIFIED SITE, STAGE 4 (2) Chronic respiratory failure Code(s): J96.10 - CHRONIC RESPIRATORY FAILURE, UNSP W HYPOXIA OR HYPERCAPNIA (3) ESRD (end stage renal disease) on dialysis Code(s): N18.6 - END STAGE RENAL DISEASE; Z99.2 - DEPENDENCE ON RENAL DIALYSIS (4) Gastrostomy in place Code(s): Z93.1 - GASTROSTOMY STATUS (5) Pressure ulcer of left leg, unstageable Code(s): L89.890 - PRESSURE ULCER OF OTHER SITE, UNSTAGEABLE (6) Pressure ulcer of right leg, stage 2 Code(s): L89.892 - PRESSURE ULCER OF OTHER SITE, STAGE 2 (7) Tracheostomy dependent Code(s): Z93.0 - TRACHEOSTOMY STATUS
[2020-05-04 09:39] LABS: BASO % 0.3 % (0-2.0); EOS % 5.5 % (0-4.5); HEMATOCRIT 25.8 % (35.4-49); HEMOGLOBIN 8.1 GM/dL (11.7-16.9); MCH 25.2 pg (25.7-33.7); MCHC 31.5 g/dl (32.0-35.9); MEAN CELL VOLUME 79.8 fl (80-96); MEAN PLT VOLUME 6.2 fl (7.5-11.1); MONO % 5.4 % (3.8-10.2); NEUT % 77.8 % (42.8-82.8); PLATELET COUNT 414 K/MM3 (134-434); RBC 3.23 M/mm3 (4.00-5.60); RDW 18.7 % (11.9-15.9); WHITE BLOOD COUNT 10.8 K/mm3 (4.0-10.0)
[2020-05-04 10:11] LABS: ALBUMIN 1.9 g/dl (3.4-5.0); BILIRUBIN,TOTAL 0.3 mg/dL (0.2-1); BLOOD UREA NITROGEN 32.4 mg/dL (7-18); CALCIUM 9.6 mg/dL (8.5-10.1); CREATININE 2.2 mg/dL (0.55-1.3); POTASSIUM 3.4 mmol/L (3.5-5.1); TOT PROT 6.4 g/dl (6.4-8.2)
--- NOTE | 2020-05-04 10:36 | PN ---
Progress Note, Physician History of Present Illness: pulmonary lethargic ,arousable on vent support ac mode - Current Medication List Current Medications: Active Medications Amino Acids (Prosource No Carb Liquid Pkt) 30 ml GT BIDWM [facility] Amlodipine Besylate (Norvasc -) 5 mg GT DAILY [facility] Last Admin: 05/03/20 14:34 Dose: 5 mg Documented by: Atorvastatin Calcium (Lipitor -) 40 mg GT HS [facility] Last Admin: 05/03/20 23:03 Dose: 40 mg Documented by: Collagenase (Santyl -) 1 applic TP DAILY [facility]; Protocol Last Admin: 05/03/20 16:15 Dose: 1 applic Documented by: Ferrous Sulfate (Feosol) 300 mg GT BID [facility] Last Admin: 05/03/20 23:03 Dose: 300 mg Documented by: Ampicillin Sodium 1 gm/ Sodium (Chloride) 100 mls @ 200 mls/hr IVPB BID [facility]; Protocol Last Admin: 05/03/20 23:03 Dose: 200 mls/hr Documented by: Levetiracetam (Keppra Oral Solution -) 500 mg GT DAILY@0600 [facility] Last Admin: 05/04/20 05:10 Dose: 500 mg Documented by: Levetiracetam (Keppra Oral Solution -) 250 mg GT TUTHSA@1800 [facility] Last Admin: 05/03/20 17:23 Dose: 250 mg Documented by: Metoprolol Tartrate (Lopressor -) 25 mg PO BID [facility] Last Admin: 05/03/20 23:03 Dose: 25 mg Documented by: Pantoprazole Sodium (Protonix Iv) 40 mg IVPUSH DAILY [facility] Last Admin: 05/03/20 09:17 Dose: 40 mg Documented by: - Objective Vital Signs: Vital Signs Temperature 97.6 F 05/04/20 06:00 Pulse Rate 95 H 05/04/20 07:45 Respiratory Rate 21 H 05/04/20 07:45 Blood Pressure 145/94 05/04/20 06:00 O2 Sat by Pulse Oximetry (%) 99 05/04/20 07:45 Constitutional: Yes: Well Nourished, Calm Eyes: Yes: WNL HENT: Yes: WNL Neck: Yes: WNL Cardiovascular: Yes: Regular Rate and Rhythm, S1, S2 Respiratory: Yes: Diminished Gastrointestinal: Yes: Normal Bowel Sounds, Soft Extremities: Yes: WNL Edema: No Labs: CBC, BMP 05/04/20 08:28 05/04/20 08:28 INR, PTT INR 1.06 (0.83-1.09) 04/27/20 16:22 Problem List - Problems (1) Anemia Code(s): D64.9 - ANEMIA, UNSPECIFIED Qualifiers: Anemia type: other cause Other causes of anemia: other cause, not classified Qualified Code(s): D64.89 - Other specified anemias (2) Chronic respiratory failure Code(s): J96.10 - CHRONIC RESPIRATORY FAILURE, UNSP W HYPOXIA OR HYPERCAPNIA (3) ESRD (end stage renal disease) on dialysis Code(s): N18.6 - END STAGE RENAL DISEASE; Z99.2 - DEPENDENCE ON RENAL DIALYSIS (4) Encounter for screening laboratory testing for COVID-19 virus Code(s): Z11.59 - ENCOUNTER FOR SCREENING FOR OTHER VIRAL DISEASES (5) GERD (gastroesophageal reflux disease) Code(s): K21.9 - GASTRO-ESOPHAGEAL REFLUX DISEASE WITHOUT ESOPHAGITIS (6) HLD (hyperlipidemia) Code(s): E78.5 - HYPERLIPIDEMIA, UNSPECIFIED (7) HTN (hypertension) Code(s): I10 - ESSENTIAL (PRIMARY) HYPERTENSION (8) Pneumonia Code(s): J18.9 - PNEUMONIA, UNSPECIFIED ORGANISM Assessment/Plan IMP CHRONIC RESPIRATORY FAILURE H/O COVID 19 H/O PNEUMONIA UTI ANEMIA ESRD ON HD H/O CVA HTN HLD PLAN VENT SUPPORT ON A MODE INHALED BRONCHODILATORS ABX NORMAL TRANSFUSION THRESHOLD MONITOR H+H,LYTES F/U CHEST X-RAYS HD PER RENAL DR LAMAR
[2020-05-04] MEDS ORDERED: BENZOIN/ALOE VERA/STORAX/TOLU 58 ML BOTTLE ONE (10:38)
--- NOTE | 2020-05-04 11:31 | PROC ---
VAC Application - Indications Decubitus ulcer (Stage 4) A decision was made to utilize Negative Pressure Therapy (VAC) to assist in: expedite wound closure through promotion of granulation tissue formation. - Wound description Wound location: Sacrum Length (cm): 14 Width (cm): 10 Depth (cm): 6 Wound area (sq cm): 140.00 Wound Description: Muscle exposed: Yes, Bone exposed: Yes, Undermining: No - Device VAC Selection: NPT - Procedure Area cleansed. Prepped/draped. Ostomy wafer cut to fit on top of skin island (inferior aspect of wound between sacrum and rim of anus). Will make for better seal when applying occlusive dressing. Black foam tailored to fit just inside of wound borders to encourage wound contracture. An occlusive dressing applied and carried out to left hip. Suction disc placed on left hip (bridged foam) in location so as not to be uncomfortable for the patient or cause any pressure point. Good seal as verified by complete foam collapse and no leak on unit monitor. Pressure set to 125 mmHg, continuous. Dressing changes: -W- - CPT Code CPT code: [id number] >50 sq cm
[2020-05-04] MEDS ORDERED: PT OWN MED DRAWER 7, Y5N ONE (11:48)
[2020-05-04] MEDS ORDERED: EPOETIN ALFA-EPBX 4,000 UNIT/ML VIAL SQ ONE (12:00)
--- NOTE | 2020-05-04 12:00 | PN ---
Progress Note (short form) - Note Progress Note: RENAL Pt is awake and alert comfortable remains trached makes eye contact Last Vital Signs Temp Pulse Resp BP Pulse Ox 97.6 F 101 H 20 145/94 99 05/04/20 06:00 05/04/20 11:30 05/04/20 11:30 05/04/20 06:00 05/04/20 11:30 trach lungs diminished breath sounds cvs s1s2 rr abd soft ext no edema in LE neuro a+ox3 CBC, BMP 05/04/20 08:28 05/04/20 08:28 Current Medications Generic Name Dose Route Start Last Admin Trade Name Freq PRN Reason Stop Dose Admin Amino Acids 30 ml 05/04/20 08:00 Prosource No Carb Liquid Pkt GT BIDWM [facility] Amlodipine Besylate 5 mg 04/28/20 13:15 05/03/20 14:34 Norvasc - GT 5 mg DAILY [facility] Administration Atorvastatin Calcium 40 mg 04/28/20 22:00 05/03/20 23:03 Lipitor - GT 40 mg HS [facility] Administration Collagenase 1 applic 05/02/20 10:00 05/03/20 16:15 Santyl - TP 1 applic DAILY [facility] Administration Protocol Ferrous Sulfate 300 mg 04/30/20 11:45 05/03/20 23:03 Feosol GT 300 mg BID [facility] Administration Ampicillin Sodium 1 gm/ Sodium 100 mls @ 200 mls/hr 05/02/20 14:45 05/03/20 23:03 Chloride IVPB 200 mls/hr BID [facility] Administration Protocol Levetiracetam 500 mg 04/28/20 06:00 05/04/20 05:10 Keppra Oral Solution - GT 500 mg DAILY@0600 [facility] Administration Levetiracetam 250 mg 04/28/20 18:00 05/03/20 17:23 Keppra Oral Solution - GT 250 mg TUTHSA@1800 [facility] Administration Metoprolol Tartrate 50 mg 05/04/20 11:31 Lopressor - PO BID [facility] Pantoprazole Sodium 40 mg 04/30/20 10:00 05/03/20 09:17 Protonix Iv IVPUSH 40 mg DAILY [facility] Administration IMPRESSION 1. Acute on chronic anemia 2. ESRD on HD 3. Hypokalemia 4. Chronic respiratory failure on vent 5. Hypertension 6. VREF in urine sensitive to ampicillin 7. pseudomonas in trach Plan - dialyze tomorrow - cont vent support - cont feeds - monitor lytes - bp is stable, cont current meds - continue ampicillin per ID recs - epogen 5000 MV
[2020-05-04] MEDS: AMPICILLIN - 1 GM in SODIUM CHLORIDE 100 ML IVPB SCH ×2 (12:01→22:11)
[2020-05-04] MEDS: AMINO ACIDS/PROTEIN HYDROLYS 30 ML LIQUID.PKT GT SCH ×2 (12:02→18:22)
[2020-05-04] MEDS: amLODIPine BESYLATE 5 MG TABLET (FP) GT SCH (12:02)
[2020-05-04] MEDS: FERROUS SO4 300 MG/5 ML ORAL SOLN UNIT DOSE CUPS GT SCH ×2 (12:02→22:11)
[2020-05-04] MEDS: PANTOPRAZOLE SODIUM 40 MG VIAL IVPUSH SCH (12:03)
[2020-05-04] MEDS: METOPROLOL TARTRATE 25 MG TABLET (FP) PO SCH ×2 (12:37→22:11)
--- NOTE | 2020-05-04 13:58 | PN ---
Progress Note (short form) - Note Progress Note: NAD trach to vent permacath hematuria resolved vac placed today for sacral ulcer Vital Signs Period Temp Pulse Resp BP Sys/Pimentel Pulse Ox Last 24 Hr 97.6 F-98.3 F 95-104 20-23 137-152/91-100 99-100 cor-rrr lungs decreased bs at bses abd soft,nt, +GT ext no edema CBC, BMP 05/04/20 08:28 05/04/20 08:28 Microbiology 05/02/20 03:08 Urine - Urine Metzger Urine Culture - Final NO GROWTH OBTAINED 04/28/20 01:30 Blood - Peripheral Venous Blood Culture - Final NO GROWTH AFTER 5 DAYS INCUBATION 04/28/20 01:30 Blood - Peripheral Venous Blood Culture - Final NO GROWTH AFTER 5 DAYS INCUBATION 04/28/20 12:50 Urine - Urine Metzger Urine Culture - Final Vr Ec Faecalis 04/28/20 04:55 Sputum - Endotrachea Suction/Ventilator Gram Stain - Final 04/28/20 04:55 Sputum - Endotrachea Suction/Ventilator Sputum Culture - Fi nal Pseudomonas Aeruginosa a/p hematuria resolved- repeat urine culture no growth chronic resp failure r/o pneumonia vre uti anemia sacral ulcer- vac placed contact isolation vre s/p 5 days zosyn, 2 days ampicillin continue ampicillin for UTI, hematuria resolved Problem List - Problems (1) Anemia Code(s): D64.9 - ANEMIA, UNSPECIFIED Qualifiers: Anemia type: other cause Other causes of anemia: other cause, not classifi ed Qualified Code(s): D64.89 - Other specified anemias (2) Chronic respiratory failure Code(s): J96.10 - CHRONIC RESPIRATORY FAILURE, UNSP W HYPOXIA OR HYPERCAPNIA (3) Pneumonia Code(s): J18.9 - PNEUMONIA, UNSPECIFIED ORGANISM (4) History of 2019 novel coronavirus disease (COVID-19) Code(s): Z86.19 - PERSONAL HISTORY OF OTHER INFECTIOUS AND PARASITIC DISEASES (5) ESRD (end stage renal disease) on dialysis Code(s): N18.6 - END STAGE RENAL DISEASE; Z99.2 - DEPENDENCE ON RENAL DIALYSIS
[2020-05-04] MEDS: COLLAGENASE CLOSTRIDIUM HIST. 30 GRAMS TUBE TP SCH (18:21)
[2020-05-04] MEDS: ATORVASTATIN CA 40 MG TABLET (FP) GT SCH (22:11)
[2020-05-05] MEDS: levETIRAcetam 500 MG/5 ML ORAL SOLUTION (UNIT-DOSE CUPS) GT SCH ×2 (06:48→19:26)
[2020-05-05] MEDS ORDERED: EPOETIN ALFA-EPBX 2,000 UNIT, EPOETIN ALFA-EPBX 3,000 UNIT IVPUSH ONE (07:00)
[2020-05-05] MEDS ORDERED: SODIUM CHLORIDE 250 ML IV PRN (07:00)
--- NOTE | 2020-05-05 07:37 | PN ---
Progress Note, Physician Chief Complaint: Anemia ESRD Chronic resp failure History of Present Illness: This is a 64 y/o male from [facility] with a PMHx of ESRD (HD- MWF), Chronic Respiratory Failure s/p Trach- Vent dependent, CVA, HTN, HLD, GERD, Pneumonia, Sepsis, Covid + (12/21/19). Who presents to the ED for low H/H x 2 days. Per [place] records patient's Hgb was 7.5. Patient is trach- vent dependent (non-verbal) unable to provide HPI. In the ED Hgb was 6.6, Stool Occult negative. PRBCs x2 ordered. NAD- opens eyes to verbal stimuli Getting dialysis at the moment No gross hematuria Seen by Urology Renal/bladder U/S no gross lesions H/H stable - Current Medication List Current Medications: Active Medications Amino Acids (Prosource No Carb Liquid Pkt) 30 ml GT BIDWM [facility] Last Admin: 05/04/20 18:22 Dose: 30 ml Documented by: Amlodipine Besylate (Norvasc -) 5 mg GT DAILY [facility] Last Admin: 05/04/20 12:02 Dose: 5 mg Documented by: Atorvastatin Calcium (Lipitor -) 40 mg GT HS [facility] Last Admin: 05/04/20 22:11 Dose: 40 mg Documented by: Collagenase (Santyl -) 1 applic TP DAILY [facility]; Protocol Last Admin: 05/04/20 18:21 Dose: 1 applic Documented by: Ferrous Sulfate (Feosol) 300 mg GT BID [facility] Last Admin: 05/04/20 22:11 Dose: 300 mg Documented by: Ampicillin Sodium 1 gm/ Sodium (Chloride) 100 mls @ 200 mls/hr IVPB BID [facility]; Protocol Last Admin: 05/04/20 22:11 Dose: 200 mls/hr Documented by: Levetiracetam (Keppra Oral Solution -) 500 mg GT DAILY@0600 [facility] Last Admin: 05/05/20 06:48 Dose: 500 mg Documented by: Levetiracetam (Keppra Oral Solution -) 250 mg GT TUTHSA@1800 [facility] Last Admin: 05/03/20 17:23 Dose: 250 mg Documented by: Metoprolol Tartrate (Lopressor -) 50 mg PO BID [facility] Last Admin: 05/04/20 22:11 Dose: 50 mg Documented by: Pantoprazole Sodium (Protonix Iv) 40 mg IVPUSH DAILY [facility] Last Admin: 05/04/20 12:03 Dose: 40 mg Documented by: - Objective Vital Signs: Vital Signs Temperature 97.2 F L 05/05/20 06:00 Pulse Rate 85 05/05/20 06:45 Respiratory Rate 20 05/05/20 06:45 Blood Pressure 141/93 05/05/20 06:45 O2 Sat by Pulse Oximetry (%) 99 05/05/20 06:00 Constitutional: Yes: Well Nourished, No Distress, Calm, Obese Cardiovascular: Yes: Regular Rate and Rhythm Respiratory: Yes: Regular, CTA Bilaterally, Mechanically Ventilated Genitourinary: Yes: Matthew Present Musculoskeletal: Yes: Muscle Weakness Extremities: Yes: Other (generalized atrophy) Edema: No Peripheral Pulses WNL: Yes Neurological: Yes: Pre-Existing Deficit Labs: CBC, BMP 05/04/20 08:28 05/04/20 08:28 INR, PTT INR 1.06 (0.83-1.09) 04/27/20 16:22 Problem List - Problems (1) Anemia Assessment/Plan: -LINDA + ESRD -Procrit as per nephrology -Ferrous sulfate BID -Transfuse only if Hg<7.0 to avoid fluid overload -Stool OB negative -B12 and thyroid profile normal -Monitor trend -Seen by GI -PPI -Hold parenteral AC -2/2 to blood loss in urine -Hematology consult -Urology consult Problems reviewed: Yes Code(s): D64.9 - ANEMIA, UNSPECIFIED Qualifiers: Anemia type: other cause Other causes of anemia: other cause, not classified Qualified Code(s): D64.89 - Other specified anemias (2) Chronic respiratory failure Assessment/Plan: -Mech vent -pulmonary on board Problems reviewed: Yes Code(s): J96.10 - CHRONIC RESPIRATORY FAILURE, UNSP W HYPOXIA OR HYPERCAPNIA (3) ESRD (end stage renal disease) on dialysis Assessment/Plan: -MWF or as per nephrology Problems reviewed: Yes Code(s): N18.6 - END STAGE RENAL DISEASE; Z99.2 - DEPENDENCE ON RENAL DIALYSIS (4) Gastrostomy in place Problems reviewed: Yes Code(s): Z93.1 - GASTROSTOMY STATUS (5) UTI (urinary tract infection) Assessment/Plan: -UA +3 blood, + leuks, + 3 protein -UC: Microbiology 04/28/20 12:50 Urine Culture - Final Urine - Urine Matthew Vr Ec Faecalis 04/28/20 01:30 Blood Culture - Preliminary Blood - Peripheral Venous NO GROWTH OBTAINED AFTER 96 HOURS, INCUBATION TO CONTINUE FOR 1 DAYS. 04/28/20 01:30 Blood Culture - Preliminary Blood - Peripheral Venous NO GROWTH OBTAINED AFTER 96 HOURS, INCUBATION TO CONTINUE FOR 1 DAYS. -IV ampicillin for VRE -Maintain matthew for retention Problems reviewed: Yes Code(s): N39.0 - URINARY TRACT INFECTION, SITE NOT SPECIFIED (6) Pneumonia Assessment/Plan: -ID on board -Repeat CXR improved aeration -Finished IV abx -Afebrile Problems reviewed: Yes Code(s): J18.9 - PNEUMONIA, UNSPECIFIED ORGANISM (7) Hematuria Assessment/Plan: -Improved -Urology consult appreciated -Renal/bladder u/s reviewed- no gross masses or lesions -Cystoscopy as per urology Problems reviewed: Yes Code(s): R31.9 - HEMATURIA, UNSPECIFIED (8) Stage 4 decubitus ulcer Assessment/Plan: -Vascular surgery consult appreciated -Plastic surgery consult -Offloading -Rectal tube -Santyl -Wound vac Problems reviewed: Yes Code(s): L89.94 - PRESSURE ULCER OF UNSPECIFIED SITE, STAGE 4 (9) HTN (hypertension) Assessment/Plan: -Increase Lopressor to 50 mg GT BID for better rate control -Decrease amlodipine to 2.5 mg GT daily Problems reviewed: Yes Code(s): I10 - ESSENTIAL (PRIMARY) HYPERTENSION Assessment/Plan See problem list
[2020-05-05] MEDS: AMINO ACIDS/PROTEIN HYDROLYS 30 ML LIQUID.PKT GT SCH ×3 (08:20→18:46)
[2020-05-05 09:26] LABS: BASO % 0.6 % (0-2.0); EOS % 6.9 % (0-4.5); HEMATOCRIT 24.5 % (35.4-49); HEMOGLOBIN 7.8 GM/dL (11.7-16.9); LYMPH % 11.3 % (8-40); MCH 25.7 pg (25.7-33.7); MCHC 31.8 g/dl (32.0-35.9); MEAN CELL VOLUME 80.8 fl (80-96); MEAN PLT VOLUME 6.3 fl (7.5-11.1); MONO % 5.5 % (3.8-10.2); NEUT % 75.7 % (42.8-82.8); PLATELET COUNT 380 K/MM3 (134-434); RBC 3.03 M/mm3 (4.00-5.60); RDW 18.9 % (11.9-15.9); WHITE BLOOD COUNT 10.1 K/mm3 (4.0-10.0)
[2020-05-05 09:58] LABS: ALBUMIN 1.9 g/dl (3.4-5.0); BILIRUBIN,TOTAL 0.9 mg/dL (0.2-1); BLOOD UREA NITROGEN 42.9 mg/dL (7-18); CALCIUM 9.8 mg/dL (8.5-10.1); CREATININE 2.6 mg/dL (0.55-1.3); POTASSIUM 3.3 mmol/L (3.5-5.1); TOT PROT 6.5 g/dl (6.4-8.2)
[2020-05-05] MEDS ORDERED: PT OWN MED DRAWER 7, Y5N ONE (10:17)
[2020-05-05] MEDS: FERROUS SO4 300 MG/5 ML ORAL SOLN UNIT DOSE CUPS GT SCH ×2 (10:19→21:52)
[2020-05-05] MEDS: AMPICILLIN - 1 GM in SODIUM CHLORIDE 100 ML IVPB SCH ×2 (10:19→21:52)
[2020-05-05] MEDS: METOPROLOL TARTRATE 25 MG TABLET (FP) PO SCH ×2 (10:23→21:53)
[2020-05-05] MEDS: amLODIPine BESYLATE 5 MG TABLET (FP) GT SCH (10:23)
[2020-05-05] MEDS: PANTOPRAZOLE SODIUM 40 MG VIAL IVPUSH SCH (10:23)
[2020-05-05] MEDS: COLLAGENASE CLOSTRIDIUM HIST. 30 GRAMS TUBE TP SCH (10:24)
--- NOTE | 2020-05-05 14:03 | PN ---
Progress Note (short form) - Note Progress Note: Lethargic but arousable on AC mode of vent support. 40% FiO2. No acute events overnight. Intake & Output 05/02/20 05/03/20 05/04/20 05/05/20 23:59 23:59 23:59 23:59 Intake Total 2360 2372 1002 1270 Output Total 245 91411 75 9863 Balance 0286 -84609 937 -8237 Weight 302 lb 3.2 oz 301 lb 6 oz 289 lb 9.6 oz Last Vital Signs Temp Pulse Resp BP Pulse Ox 97.6 F 94 H 20 105/69 100 05/05/20 13:27 05/05/20 13:27 05/05/20 13:27 05/05/20 13:27 05/05/20 13:27 Active Medications Amino Acids (Prosource No Carb Liquid Pkt) 30 ml GT BIDWM [facility] Last Admin: 05/05/20 08:26 Dose: Not Given Documented by: Amlodipine Besylate (Norvasc -) 2.5 mg GT DAILY [facility] Atorvastatin Calcium (Lipitor -) 40 mg GT HS [facility] Last Admin: 05/04/20 22:11 Dose: 40 mg Documented by: Collagenase (Santyl -) 1 applic TP DAILY [facility]; Protocol Last Admin: 05/05/20 10:24 Dose: 1 applic Documented by: Ferrous Sulfate (Feosol) 300 mg GT BID [facility] Last Admin: 05/05/20 10:19 Dose: 300 mg Documented by: Ampicillin Sodium 1 gm/ Sodium (Chloride) 100 mls @ 200 mls/hr IVPB BID [facility]; Protocol Last Admin: 05/05/20 10:19 Dose: 200 mls/hr Documented by: Levetiracetam (Keppra Oral Solution -) 500 mg GT DAILY@0600 [facility] Last Admin: 05/05/20 06:48 Dose: 500 mg Documented by: Levetiracetam (Keppra Oral Solution -) 250 mg GT TUTHSA@1800 [facility] Last Admin: 05/03/20 17:23 Dose: 250 mg Documented by: Metoprolol Tartrate (Lopressor -) 50 mg PO BID [facility] Pantoprazole Sodium (Protonix Iv) 40 mg IVPUSH DAILY [facility] Last Admin: 05/05/20 10:23 Dose: 40 mg Documented by: Constitutional: Yes: Vented, NAD Eyes: Yes: WNL HENT: Yes: WNL Neck: Yes: WNL Cardiovascular: Yes: Regular Rate and Rhythm, S1, S2 Respiratory: Yes: Vented, Diminished Gastrointestinal: Yes: Normal Bowel Sounds, Soft Extremities: Yes: WNL Edema: No Labs: Laboratory Results - last 24 hr 05/05/20 05/05/20 07:15 07:15 WBC 10.1 H RBC 3.03 L Hgb 7.8 L Hct 24.5 L MCV 80.8 MCH 25.7 MCHC 31.8 L RDW 18.9 H Plt Count 380 MPV 6.3 L Absolute Neuts (auto) 7.7 Neutrophils % 75.7 Lymphocytes % 11.3 Monocytes % 5.5 Eosinophils % 6.9 H Basophils % 0.6 Nucleated RBC % 0 Sodium 139 Potassium 3.3 L Chloride 101 Carbon Dioxide 28 Anion Gap 10 BUN 42.9 H Creatinine 2.6 H Est GFR (CKD-EPI)AfAm 29.32 Est GFR (CKD-EPI)NonAf 25.30 Random Glucose 72 L Calcium 9.8 Total Bilirubin 0.9 AST 16 ALT 16 Alkaline Phosphatase 108 Total Protein 6.5 Albumin 1.9 L Problem List - Problems (1) Anemia Code(s): D64.9 - ANEMIA, UNSPECIFIED Qualifiers: Anemia type: other cause Other causes of anemia: other cause, not classified Qualified Code(s): D64.89 - Other specified anemias (2) Chronic respiratory failure Code(s): J96.10 - CHRONIC RESPIRATORY FAILURE, UNSP W HYPOXIA OR HYPERCAPNIA (3) ESRD (end stage renal disease) on dialysis Code(s): N18.6 - END STAGE RENAL DISEASE; Z99.2 - DEPENDENCE ON RENAL DIALYSIS (4) Encounter for screening laboratory testing for COVID-19 virus Code(s): Z11.59 - ENCOUNTER FOR SCREENING FOR OTHER VIRAL DISEASES (5) GERD (gastroesophageal reflux disease) Code(s): K21.9 - GASTRO-ESOPHAGEAL REFLUX DISEASE WITHOUT ESOPHAGITIS (6) HLD (hyperlipidemia) Code(s): E78.5 - HYPERLIPIDEMIA, UNSPECIFIED (7) HTN (hypertension) Code(s): I10 - ESSENTIAL (PRIMARY) HYPERTENSION (8) Pneumonia Code(s): J18.9 - PNEUMONIA, UNSPECIFIED ORGANISM Assessment/Plan IMP CHRONIC RESPIRATORY FAILURE H/O COVID 19 H/O PNEUMONIA UTI ANEMIA ESRD ON HD H/O CVA HTN HLD PLAN VENT SUPPORT ON AC MODE INHALED BRONCHODILATORS ABX NORMAL TRANSFUSION THRESHOLD MONITOR H+H,LYTES HD PER RENAL Dr Sigala
--- NOTE | 2020-05-05 17:40 | PN ---
Progress Note, Physician History of Present Illness: Pt seen and examined at bedside. He had HD this morning. - Current Medication List Current Medications: Active Medications Amino Acids (Prosource No Carb Liquid Pkt) 30 ml GT BIDWM [facility] Last Admin: 05/05/20 08:26 Dose: Not Given Documented by: Amlodipine Besylate (Norvasc -) 2.5 mg GT DAILY [facility] Atorvastatin Calcium (Lipitor -) 40 mg GT HS [facility] Last Admin: 05/04/20 22:11 Dose: 40 mg Documented by: Collagenase (Santyl -) 1 applic TP DAILY [facility]; Protocol Last Admin: 05/05/20 10:24 Dose: 1 applic Documented by: Ferrous Sulfate (Feosol) 300 mg GT BID [facility] Last Admin: 05/05/20 10:19 Dose: 300 mg Documented by: Ampicillin Sodium 1 gm/ Sodium (Chloride) 100 mls @ 200 mls/hr IVPB BID [facility]; Protocol Last Admin: 05/05/20 10:19 Dose: 200 mls/hr Documented by: Levetiracetam (Keppra Oral Solution -) 500 mg GT DAILY@0600 [facility] Last Admin: 05/05/20 06:48 Dose: 500 mg Documented by: Levetiracetam (Keppra Oral Solution -) 250 mg GT TUTHSA@1800 [facility] Last Admin: 05/03/20 17:23 Dose: 250 mg Documented by: Metoprolol Tartrate (Lopressor -) 50 mg PO BID [facility] Pantoprazole Sodium (Protonix Iv) 40 mg IVPUSH DAILY [facility] Last Admin: 05/05/20 10:23 Dose: 40 mg Documented by: - Objective Vital Signs: Vital Signs Temperature 97.6 F 05/05/20 13:27 Pulse Rate 94 H 05/05/20 13:27 Respiratory Rate 20 05/05/20 15:15 Blood Pressure 105/69 05/05/20 13:27 O2 Sat by Pulse Oximetry (%) 97 05/05/20 15:15 Constitutional: Yes: Calm Eyes: Yes: Conjunctiva Clear HENT: Yes: Atraumatic Neck: Yes: Supple Cardiovascular: Yes: S1, S2 Respiratory: Yes: Mechanically Ventilated Gastrointestinal: Yes: Normal Bowel Sounds, Soft Genitourinary: Yes: Metzegr Present Musculoskeletal: Yes: Muscle Weakness Edema: Yes Edema: LLE: Trace, RLE: Trace Neurological: Yes: Lethargy Labs: CBC, BMP 05/05/20 07:15 05/05/20 07:15 INR, PTT INR 1.06 (0.83-1.09) 04/27/20 16:22 Problem List - Problems (1) ESRD (end stage renal disease) on dialysis Code(s): N18.6 - END STAGE RENAL DISEASE; Z99.2 - DEPENDENCE ON RENAL DIALYSIS Assessment/Plan Current Medications Generic Name Dose Route Start Last Admin Trade Name Derick PRN Reason Stop Dose Admin Amino Acids 30 ml 05/04/20 08:00 05/05/20 08:26 Prosource No Carb Liquid Pkt GT Not Given BIDWM [facility] Amlodipine Besylate 2.5 mg 05/06/20 13:15 Norvasc - GT DAILY [facility] Atorvastatin Calcium 40 mg 04/28/20 22:00 05/04/20 22:11 Lipitor - GT 40 mg HS [facility] Administration Collagenase 1 applic 05/02/20 10:00 05/05/20 10:24 Santyl - TP 1 applic DAILY [facility] Administration Protocol Ferrous Sulfate 300 mg 04/30/20 11:45 05/05/20 10:19 Feosol GT 300 mg BID [facility] Administration Ampicillin Sodium 1 gm/ Sodium 100 mls @ 200 mls/hr 05/02/20 14:45 05/05/20 10:19 Chloride IVPB 200 mls/hr BID [facility] Administration Protocol Levetiracetam 500 mg 04/28/20 06:00 05/05/20 06:48 Keppra Oral Solution - GT 500 mg DAILY@0600 [facility] Administration Levetiracetam 250 mg 04/28/20 18:00 05/03/20 17:23 Keppra Oral Solution - GT 250 mg TUTHSA@1800 [facility] Administration Metoprolol Tartrate 50 mg 05/05/20 22:00 Lopressor - PO BID [facility] Pantoprazole Sodium 40 mg 04/30/20 10:00 05/05/20 10:23 Protonix Iv IVPUSH 40 mg DAILY [facility] Administration IMPRESSION 1. Acute on chronic anemia 2. ESRD on HD 3. Hypokalemia 4. Chronic respiratory failure on vent 5. Hypertension 6. VREF in urine sensitive to ampicillin 7. pseudomonas in trach Plan - HD today - cont vent support - con feeds - monitor bp - cont epogen - abx per ID
[2020-05-05] MEDS: ATORVASTATIN CA 40 MG TABLET (FP) GT SCH (21:52)
[2020-05-06] MEDS: levETIRAcetam 500 MG/5 ML ORAL SOLUTION (UNIT-DOSE CUPS) GT SCH (06:48)
--- NOTE | 2020-05-06 08:10 | PN ---
Progress Note, Physician Chief Complaint: Anemia ESRD Chronic resp failure History of Present Illness: This is a 64 y/o male from [facility] with a PMHx of ESRD (HD- MWF), Chronic Respiratory Failure s/p Trach- Vent dependent, CVA, HTN, HLD, GERD, Pneumonia, Sepsis, Covid + (12/21/19). Who presents to the ED for low H/H x 2 days. Per [place] records patient's Hgb was 7.5. Patient is trach- vent dependent (non-verbal) unable to provide HPI. In the ED Hgb was 6.6, Stool Occult negative. PRBCs x2 ordered. NAD- opens eyes to verbal stimuli Getting dialysis at the moment No gross hematuria in the matthew -On IV ampicillin for VRE in urine Seen by Urology Renal/bladder U/S no gross lesions H/H stable - Current Medication List Current Medications: Active Medications Amino Acids (Prosource No Carb Liquid Pkt) 30 ml GT BIDWM [facility] Last Admin: 05/05/20 18:46 Dose: 30 ml Documented by: Amlodipine Besylate (Norvasc -) 2.5 mg GT DAILY [facility] Atorvastatin Calcium (Lipitor -) 40 mg GT HS [facility] Last Admin: 05/05/20 21:52 Dose: 40 mg Documented by: Collagenase (Santyl -) 1 applic TP DAILY [facility]; Protocol Last Admin: 05/05/20 10:24 Dose: 1 applic Documented by: Ferrous Sulfate (Feosol) 300 mg GT BID [facility] Last Admin: 05/05/20 21:52 Dose: 300 mg Documented by: Ampicillin Sodium 1 gm/ Sodium (Chloride) 100 mls @ 200 mls/hr IVPB BID [facility]; Protocol Last Admin: 05/05/20 21:52 Dose: 200 mls/hr Documented by: Levetiracetam (Keppra Oral Solution -) 500 mg GT DAILY@0600 [facility] Last Admin: 05/06/20 06:48 Dose: 500 mg Documented by: Levetiracetam (Keppra Oral Solution -) 250 mg GT TUTHSA@1800 [facility] Last Admin: 05/05/20 19:26 Dose: 250 mg Documented by: Metoprolol Tartrate (Lopressor -) 50 mg PO BID [facility] Last Admin: 05/05/20 21:53 Dose: 50 mg Documented by: Pantoprazole Sodium (Protonix Iv) 40 mg IVPUSH DAILY [facility] Last Admin: 05/05/20 10:23 Dose: 40 mg Documented by: - Objective Vital Signs: Vital Signs Temperature 97.6 F 05/06/20 05:00 Pulse Rate 97 H 05/06/20 05:00 Respiratory Rate 05/06/20 06:00 Blood Pressure 108/73 05/06/20 05:00 O2 Sat by Pulse Oximetry (%) 100 05/06/20 06:00 Constitutional: Yes: Well Nourished, No Distress, Calm, Obese Cardiovascular: Yes: Regular Rate and Rhythm Respiratory: Yes: Regular, Diminished, Mechanically Ventilated Gastrointestinal: Yes: Normal Bowel Sounds, Soft Genitourinary: Yes: Matthew Present Musculoskeletal: Yes: WNL Extremities: Yes: Other (generalized atrophy) Edema: No Peripheral Pulses WNL: Yes Integumentary: Yes: Pressure Ulcer (Stage 4 to sacrum) Wound/Incision: Yes: Dressing Dry and Intact Neurological: Yes: Pre-Existing Deficit Labs: CBC, BMP 05/05/20 07:15 05/05/20 07:15 INR, PTT INR 1.06 (0.83-1.09) 04/27/20 16:22 Problem List - Problems (1) Anemia Assessment/Plan: -LINDA + ESRD -Procrit as per nephrology -Ferrous sulfate BID -Transfuse only if Hg<7.0 to avoid fluid overload -Stool OB negative -B12 and thyroid profile normal -Monitor trend -Seen by GI -PPI -Hold parenteral AC -2/2 to blood loss in urine -Hematology consult -Urology consult appreciated -H/H stable at this time Problems reviewed: Yes Code(s): D64.9 - ANEMIA, UNSPECIFIED Qualifiers: Anemia type: other cause Other causes of anemia: other cause, not classified Qualified Code(s): D64.89 - Other specified anemias (2) Chronic respiratory failure Assessment/Plan: -Mech vent -pulmonary on board Problems reviewed: Yes Code(s): J96.10 - CHRONIC RESPIRATORY FAILURE, UNSP W HYPOXIA OR HYPERCAPNIA (3) ESRD (end stage renal disease) on dialysis Assessment/Plan: -MWF or as per nephrology Problems reviewed: Yes Code(s): N18.6 - END STAGE RENAL DISEASE; Z99.2 - DEPENDENCE ON RENAL DIALYSIS (4) Gastrostomy in place Problems reviewed: Yes Code(s): Z93.1 - GASTROSTOMY STATUS (5) UTI (urinary tract infection) Assessment/Plan: -UA +3 blood, + leuks, + 3 protein -UC: Microbiology 04/28/20 12:50 Urine Culture - Final Urine - Urine Matthew Vr Ec Faecalis 04/28/20 01:30 Blood Culture - Preliminary Blood - Peripheral Venous NO GROWTH OBTAINED AFTER 96 HOURS, INCUBATION TO CONTINUE FOR 1 DAYS. 04/28/20 01:30 Blood Culture - Preliminary Blood - Peripheral Venous NO GROWTH OBTAINED AFTER 96 HOURS, INCUBATION TO CONTINUE FOR 1 DAYS. -IV ampicillin for VRE -Maintain matthew for retention Problems reviewed: Yes Code(s): N39.0 - URINARY TRACT INFECTION, SITE NOT SPECIFIED (6) Pneumonia Assessment/Plan: -ID on board -Repeat CXR improved aeration -Finished IV abx -Afebrile Problems reviewed: Yes Code(s): J18.9 - PNEUMONIA, UNSPECIFIED ORGANISM (7) Hematuria Assessment/Plan: -Improved -Urology consult appreciated -Renal/bladder u/s reviewed- no gross masses or lesions -Cystoscopy as per urology Problems reviewed: Yes Code(s): R31.9 - HEMATURIA, UNSPECIFIED (8) Stage 4 decubitus ulcer Assessment/Plan: -Vascular surgery consult appreciated -Plastic surgery consult -Offloading -Rectal tube -Santyl -Wound vac Problems reviewed: Yes Code(s): L89.94 - PRESSURE ULCER OF UNSPECIFIED SITE, STAGE 4 (9) HTN (hypertension) Assessment/Plan: -Increase Lopressor to 50 mg GT BID for better rate control -amlodipine to 2.5 mg GT daily Problems reviewed: Yes Code(s): I10 - ESSENTIAL (PRIMARY) HYPERTENSION Assessment/Plan See problem list
[2020-05-06] MEDS: AMINO ACIDS/PROTEIN HYDROLYS 30 ML LIQUID.PKT GT SCH ×2 (08:28→17:33)
[2020-05-06] MEDS ORDERED: PT OWN MED DRAWER 7, Y5N ONE ×2 (09:51→21:23)
[2020-05-06] MEDS: AMPICILLIN - 1 GM in SODIUM CHLORIDE 100 ML IVPB SCH ×2 (09:54→21:30)
[2020-05-06] MEDS: PANTOPRAZOLE SODIUM 40 MG VIAL IVPUSH SCH (09:55)
[2020-05-06] MEDS: METOPROLOL TARTRATE 25 MG TABLET (FP) PO SCH ×2 (09:55→21:31)
[2020-05-06] MEDS: COLLAGENASE CLOSTRIDIUM HIST. 30 GRAMS TUBE TP SCH (09:55)
[2020-05-06] MEDS: FERROUS SO4 300 MG/5 ML ORAL SOLN UNIT DOSE CUPS GT SCH ×2 (09:55→21:30)
[2020-05-06 11:26] LABS: BASO % 0.4 % (0-2.0); EOS % 7.1 % (0-4.5); HEMATOCRIT 24.8 % (35.4-49); HEMOGLOBIN 7.8 GM/dL (11.7-16.9); LYMPH % 13.1 % (8-40); MCH 25.3 pg (25.7-33.7); MCHC 31.3 g/dl (32.0-35.9); MEAN CELL VOLUME 80.7 fl (80-96); MONO % 5.5 % (3.8-10.2); NEUT % 73.9 % (42.8-82.8); PLATELET COUNT 376 K/MM3 (134-434); RBC 3.07 M/mm3 (4.00-5.60); RDW 19.4 % (11.9-15.9); WHITE BLOOD COUNT 8.9 K/mm3 (4.0-10.0)
[2020-05-06 11:56] LABS: ALBUMIN 1.9 g/dl (3.4-5.0); CALCIUM 9.6 mg/dL (8.5-10.1); CREATININE 2.2 mg/dL (0.55-1.3); POTASSIUM 3.5 mmol/L (3.5-5.1); TOT PROT 6.3 g/dl (6.4-8.2)
[2020-05-06 11:58] LABS: BILIRUBIN,TOTAL 0.3 mg/dL (0.2-1)
[2020-05-06] MEDS: amLODIPine BESYLATE 5 MG TABLET (FP) GT SCH (12:51)
--- NOTE | 2020-05-06 13:47 | PN ---
Progress Note (short form) - Note Progress Note: Remains lethargic but arousable on AC mode of vent support. 40% FiO2. No acute events overnight. Intake & Output 05/03/20 05/04/20 05/05/20 05/06/20 23:59 23:59 23:59 23:59 Intake Total 2372 1002 2331 0 Output Total 79311 75 9938 50 Balance -65686 927 -7607 -50 Weight 301 lb 6 oz 289 lb 9.6 oz 288 lb 4 oz Last Vital Signs Temp Pulse Resp BP Pulse Ox 97.9 F 99 H 23 H 118/82 100 05/06/20 09:00 05/06/20 10:00 05/06/20 12:34 05/06/20 09:00 05/06/20 12:34 Active Medications Amino Acids (Prosource No Carb Liquid Pkt) 30 ml GT BIDWM REPLACED BY [facility] Last Admin: 05/06/20 08:28 Dose: 30 ml Documented by: Amlodipine Besylate (Norvasc -) 2.5 mg GT DAILY REPLACED BY [facility] Last Admin: 05/06/20 12:51 Dose: 2.5 mg Documented by: Atorvastatin Calcium (Lipitor -) 40 mg GT HS REPLACED BY [facility] Last Admin: 05/05/20 21:52 Dose: 40 mg Documented by: Collagenase (Santyl -) 1 applic TP DAILY REPLACED BY [facility]; Protocol Last Admin: 05/06/20 09:55 Dose: 1 applic Documented by: Ferrous Sulfate (Feosol) 300 mg GT BID REPLACED BY [facility] Last Admin: 05/06/20 09:55 Dose: 300 mg Documented by: Ampicillin Sodium 1 gm/ Sodium (Chloride) 100 mls @ 200 mls/hr IVPB BID REPLACED BY [facility]; Protocol Last Admin: 05/06/20 09:54 Dose: 200 mls/hr Documented by: Levetiracetam (Keppra Oral Solution -) 500 mg GT DAILY@0600 REPLACED BY [facility] Last Admin: 05/06/20 06:48 Dose: 500 mg Documented by: Levetiracetam (Keppra Oral Solution -) 250 mg GT TUTHSA@1800 REPLACED BY [facility] Last Admin: 05/05/20 19:26 Dose: 250 mg Documented by: Metoprolol Tartrate (Lopressor -) 50 mg PO BID REPLACED BY [facility] Last Admin: 05/06/20 09:55 Dose: 50 mg Documented by: Pantoprazole Sodium (Protonix Iv) 40 mg IVPUSH DAILY REPLACED BY [facility] Last Admin: 05/06/20 09:55 Dose: 40 mg Documented by: Constitutional: Yes: Vented, NAD Eyes: Yes: WNL HENT: Yes: WNL Neck: Yes: WNL Cardiovascular: Yes: Regular Rate and Rhythm, S1, S2 Respiratory: Yes: Vented, Diminished Gastrointestinal: Yes: Normal Bowel Sounds, Soft Extremities: Yes: WNL Edema: No Labs: Laboratory Results - last 24 hr 05/06/20 05/06/20 11:00 11:00 WBC 8.9 RBC 3.07 L Hgb 7.8 L Hct 24.8 L MCV 80.7 MCH 25.3 L MCHC 31.3 L RDW 19.4 H Plt Count 376 MPV 6.0 L Absolute Neuts (auto) 6.6 Neutrophils % 73.9 Lymphocytes % 13.1 Monocytes % 5.5 Eosinophils % 7.1 H Basophils % 0.4 Nucleated RBC % 0 Sodium 141 Potassium 3.5 Chloride 103 Carbon Dioxide 28 Anion Gap 9 BUN 37.0 H Creatinine 2.2 H Est GFR (CKD-EPI)AfAm 35.88 Est GFR (CKD-EPI)NonAf 30.96 Random Glucose 104 Calcium 9.6 Total Bilirubin 0.3 AST 14 L ALT 18 Alkaline Phosphatase 107 Total Protein 6.3 L Albumin 1.9 L Problem List - Problems (1) Anemia Code(s): D64.9 - ANEMIA, UNSPECIFIED Qualifiers: Anemia type: other cause Other causes of anemia: other cause, not classified Qualified Code(s): D64.89 - Other specified anemias (2) Chronic respiratory failure Code(s): J96.10 - CHRONIC RESPIRATORY FAILURE, UNSP W HYPOXIA OR HYPERCAPNIA (3) ESRD (end stage renal disease) on dialysis Code(s): N18.6 - END STAGE RENAL DISEASE; Z99.2 - DEPENDENCE ON RENAL DIALYSIS (4) Encounter for screening laboratory testing for COVID-19 virus Code(s): Z11.59 - ENCOUNTER FOR SCREENING FOR OTHER VIRAL DISEASES (5) GERD (gastroesophageal reflux disease) Code(s): K21.9 - GASTRO-ESOPHAGEAL REFLUX DISEASE WITHOUT ESOPHAGITIS (6) HLD (hyperlipidemia) Code(s): E78.5 - HYPERLIPIDEMIA, UNSPECIFIED (7) HTN (hypertension) Code(s): I10 - ESSENTIAL (PRIMARY) HYPERTENSION (8) Pneumonia Code(s): J18.9 - PNEUMONIA, UNSPECIFIED ORGANISM Assessment/Plan IMP CHRONIC RESPIRATORY FAILURE H/O COVID 19 H/O PNEUMONIA UTI ANEMIA ESRD ON HD H/O CVA HTN HLD PLAN VENT SUPPORT ON AC MODE INHALED BRONCHODILATORS ABX NORMAL TRANSFUSION THRESHOLD MONITOR H+H,LYTES HD PER RENAL Dr Sigala
--- NOTE | 2020-05-06 14:08 | PN ---
Progress Note, Physician History of Present Illness: Pt seen and examined at bedside. No great change in status. - Current Medication List Current Medications: Active Medications Amino Acids (Prosource No Carb Liquid Pkt) 30 ml GT BIDWM [facility] Last Admin: 05/06/20 08:28 Dose: 30 ml Documented by: Amlodipine Besylate (Norvasc -) 2.5 mg GT DAILY [facility] Last Admin: 05/06/20 12:51 Dose: 2.5 mg Documented by: Atorvastatin Calcium (Lipitor -) 40 mg GT HS [facility] Last Admin: 05/05/20 21:52 Dose: 40 mg Documented by: Collagenase (Santyl -) 1 applic TP DAILY [facility]; Protocol Last Admin: 05/06/20 09:55 Dose: 1 applic Documented by: Ferrous Sulfate (Feosol) 300 mg GT BID [facility] Last Admin: 05/06/20 09:55 Dose: 300 mg Documented by: Ampicillin Sodium 1 gm/ Sodium (Chloride) 100 mls @ 200 mls/hr IVPB BID [facility]; Protocol Last Admin: 05/06/20 09:54 Dose: 200 mls/hr Documented by: Levetiracetam (Keppra Oral Solution -) 500 mg GT DAILY@0600 [facility] Last Admin: 05/06/20 06:48 Dose: 500 mg Documented by: Levetiracetam (Keppra Oral Solution -) 250 mg GT TUTHSA@1800 [facility] Last Admin: 05/05/20 19:26 Dose: 250 mg Documented by: Metoprolol Tartrate (Lopressor -) 50 mg PO BID [facility] Last Admin: 05/06/20 09:55 Dose: 50 mg Documented by: Pantoprazole Sodium (Protonix Iv) 40 mg IVPUSH DAILY [facility] Last Admin: 05/06/20 09:55 Dose: 40 mg Documented by: - Objective Vital Signs: Vital Signs Temperature 97.9 F 05/06/20 09:00 Pulse Rate 99 H 05/06/20 10:00 Respiratory Rate 23 H 05/06/20 12:34 Blood Pressure 118/82 05/06/20 09:00 O2 Sat by Pulse Oximetry (%) 100 05/06/20 12:34 Constitutional: Yes: Calm Eyes: Yes: Conjunctiva Clear HENT: Yes: Atraumatic Neck: Yes: Supple Cardiovascular: Yes: S1, S2 Respiratory: Yes: Mechanically Ventilated Gastrointestinal: Yes: Normal Bowel Sounds, Soft Musculoskeletal: Yes: Muscle Weakness Edema: Yes Edema: LUE: Trace, RUE: Trace, LLE: Trace, RLE: Trace Integumentary: Yes: WNL Neurological: Yes: Other (drowsy) Labs: CBC, BMP 05/06/20 11:00 05/06/20 11:00 INR, PTT INR 1.06 (0.83-1.09) 04/27/20 16:22 Problem List - Problems (1) ESRD (end stage renal disease) on dialysis Code(s): N18.6 - END STAGE RENAL DISEASE; Z99.2 - DEPENDENCE ON RENAL DIALYSIS Assessment/Plan Current Medications Generic Name Dose Route Start Last Admin Trade Name Freq PRN Reason Stop Dose Admin Amino Acids 30 ml 05/04/20 08:00 05/06/20 08:28 Prosource No Carb Liquid Pkt GT 30 ml BIDWM [facility] Administration Amlodipine Besylate 2.5 mg 05/06/20 13:15 05/06/20 12:51 Norvasc - GT 2.5 mg DAILY [facility] Administration Atorvastatin Calcium 40 mg 04/28/20 22:00 05/05/20 21:52 Lipitor - GT 40 mg HS [facility] Administration Collagenase 1 applic 05/02/20 10:00 05/06/20 09:55 Santyl - TP 1 applic DAILY [facility] Administration Protocol Ferrous Sulfate 300 mg 04/30/20 11:45 05/06/20 09:55 Feosol GT 300 mg BID [facility] Administration Ampicillin Sodium 1 gm/ Sodium 100 mls @ 200 mls/hr 05/02/20 14:45 05/06/20 09:54 Chloride IVPB 200 mls/hr BID [facility] Administration Protocol Levetiracetam 500 mg 04/28/20 06:00 05/06/20 06:48 Keppra Oral Solution - GT 500 mg DAILY@0600 [facility] Administration Levetiracetam 250 mg 04/28/20 18:00 05/05/20 19:26 Keppra Oral Solution - GT 250 mg TUTHSA@1800 [facility] Administration Metoprolol Tartrate 50 mg 05/05/20 22:00 05/06/20 09:55 Lopressor - PO 50 mg BID [facility] Administration Pantoprazole Sodium 40 mg 04/30/20 10:00 05/06/20 09:55 Protonix Iv IVPUSH 40 mg DAILY [facility] Administration IMPRESSION 1. Acute on chronic anemia 2. ESRD on HD 3. Hypokalemia 4. Chronic respiratory failure on vent 5. Hypertension 6. VREF in urine sensitive to ampicillin 7. pseudomonas in trach Plan - next HD on Thursday - cont feeds - vent support - monitor bp - cont epogen - abx per ID
[2020-05-06] MEDS: ATORVASTATIN CA 40 MG TABLET (FP) GT SCH (21:31)
[2020-05-07] MEDS: levETIRAcetam 500 MG/5 ML ORAL SOLUTION (UNIT-DOSE CUPS) GT SCH (06:56)
--- NOTE | 2020-05-07 08:17 | DS ---
Physical Examination Vital Signs: Vital Signs Temperature 98.2 F 05/07/20 06:00 Pulse Rate 95 H 05/07/20 08:05 Respiratory Rate 20 05/07/20 08:05 Blood Pressure 148/91 05/07/20 06:00 O2 Sat by Pulse Oximetry (%) 100 05/07/20 08:05 Findings/Remarks: EVENTS AND NOTES REVIEWED READY FOR DISCHARGE CHRONIC CARE ESRD-HD WOUND CARE WITH VAC, ANEMIA Constitutional: Yes: Mild Distress Cardiovascular: Yes: Regular Rate and Rhythm Respiratory: Yes: Mechanically Ventilated Gastrointestinal: Yes: Other Musculoskeletal: Yes: Muscle Weakness Integumentary: Yes: Pressure Ulcer, Other Wound/Incision: Yes: Other (WOUND VAC) Neurological: Yes: Pre-Existing Deficit Labs: CBC, BMP 05/06/20 11:00 05/06/20 11:00 Discharge Summary Problems reviewed: Yes Reason For Visit: ANEMIA,TRACHEOSTOMY IN PLACE Current Active Problems Anemia (Acute) CVA (cerebral vascular accident) (Acute) Chronic respiratory failure (Acute) ESRD (end stage renal disease) on dialysis (Acute) Encounter for screening laboratory testing for COVID-19 virus (Acute) GERD (gastroesophageal reflux disease) (Acute) Gastrostomy in place (Acute) HLD (hyperlipidemia) (Acute) HTN (hypertension) (Acute) Hematuria (Acute) Hematuria (Acute) History of 2019 novel coronavirus disease (COVID-19) (Acute) Hypokalemia (Acute) Pneumonia (Acute) Pressure ulcer of left leg, unstageable (Acute) Pressure ulcer of right leg, stage 2 (Acute) Stage 4 decubitus ulcer (Acute) Tracheostomy dependent (Acute) UTI (urinary tract infection) (Acute) Procedures: Principal: CT SCAN/HD Other Procedures: WOUND CARE WITH VAC Hospital Course: ADMITTED ESRD ON HD, CVA OLD, ANEMIA TRANSFUSED PRBC, Goals: WOUND CARE, WOUND VACM HD Condition: Poor - Instructions Referrals: Jay Grover MD [Primary Care Provider] - Disposition: [facility] - Home Medications Comprehensive Discharge Medication List: Ambulatory Orders Acetaminophen [Tylenol] 650 mg GT Q6H PRN 04/27/20 Albuterol 2.5/Ipratropium 0.5 [Duoneb -] 1 neb IH QID 04/27/20 Atorvastatin Ca [Lipitor] 40 mg GT HS 04/27/20 Calcium Acetate 667 mg GT TID 04/27/20 Esomeprazole Magnesium [Nexium 24Hr] 40 mg GT DAILY 04/27/20 Metoprolol Tartrate [Lopressor -] 12.5 mg GT BID 04/27/20 Midodrine HCl 10 mg GT TID 04/27/20 Polyethylene Glycol 3350 [Clearlax] 17 gm GT DAILY 04/27/20 Sennosides [Senna] 17.2 mg GT HS 04/27/20 Amino Acids/Protein Hydrolys [Prosource No Carb Liquid Pkt] 30 ml GT BIDWM packet 05/07/20 Amlodipine Besylate [Norvasc -] 2.5 mg GT DAILY tablet 05/07/20 Ampicillin - 1 gm IVPB BID vial 05/07/20 Collagenase Clostridium Hist. [Santyl -] 1 applic TP DAILY tube 05/07/20 Ferrous Sulfate [Feosol] 300 mg GT BID udc 05/07/20 Metoprolol Tartrate [Lopressor -] 50 mg PO BID tablet 05/07/20 levETIRAcetam [Keppra Oral Solution -] 250 mg GT TUTHSA@1800 cup 05/07/20 levETIRAcetam [Keppra Oral Solution -] 500 mg GT DAILY@0600 cup 05/07/20
[2020-05-07] MEDS: AMINO ACIDS/PROTEIN HYDROLYS 30 ML LIQUID.PKT GT SCH ×2 (09:00→17:10)
[2020-05-07] MEDS: PANTOPRAZOLE SODIUM 40 MG VIAL IVPUSH SCH (10:01)
[2020-05-07] MEDS: FERROUS SO4 300 MG/5 ML ORAL SOLN UNIT DOSE CUPS GT SCH ×2 (10:02→21:35)
[2020-05-07] MEDS: METOPROLOL TARTRATE 25 MG TABLET (FP) PO SCH ×2 (10:02→21:35)
[2020-05-07] MEDS: amLODIPine BESYLATE 5 MG TABLET (FP) GT SCH (10:02)
[2020-05-07] MEDS: AMPICILLIN - 1 GM in SODIUM CHLORIDE 100 ML IVPB SCH (10:10)
--- NOTE | 2020-05-07 11:33 | PN ---
Progress Note (short form) - Note Progress Note: RENAL Pt is awake and alert comfortable remains trached makes eye contact Last Vital Signs Temp Pulse Resp BP Pulse Ox 97.9 F 100 H 22 H 149/97 100 05/07/20 10:00 05/07/20 10:00 05/07/20 10:00 05/07/20 10:00 05/07/20 10:00 trach lungs diminished breath sounds cvs s1s2 rr abd soft ext no edema in LE neuro a+ox3 CBC, BMP 05/06/20 11:00 05/06/20 11:00 Current Medications Generic Name Dose Route Start Last Admin Trade Name Freq PRN Reason Stop Dose Admin Amino Acids 30 ml 05/04/20 08:00 05/07/20 09:00 Prosource No Carb Liquid Pkt GT 30 ml BIDWM [facility] Administration Amlodipine Besylate 2.5 mg 05/06/20 13:15 05/07/20 10:02 Norvasc - GT 2.5 mg DAILY [facility] Administration Atorvastatin Calcium 40 mg 04/28/20 22:00 05/06/20 21:31 Lipitor - GT 40 mg HS [facility] Administration Collagenase 1 applic 05/02/20 10:00 05/06/20 09:55 Santyl - TP 1 applic DAILY [facility] Administration Protocol Ferrous Sulfate 300 mg 04/30/20 11:45 05/07/20 10:02 Feosol GT 300 mg BID [facility] Administration Ampicillin Sodium 1 gm/ Sodium 100 mls @ 200 mls/hr 05/02/20 14:45 05/07/20 10:10 Chloride IVPB 200 mls/hr BID [facility] Administration Protocol Levetiracetam 500 mg 04/28/20 06:00 05/07/20 06:56 Keppra Oral Solution - GT 500 mg DAILY@0600 [facility] Administration Levetiracetam 250 mg 04/28/20 18:00 05/05/20 19:26 Keppra Oral Solution - GT 250 mg TUTHSA@1800 [facility] Administration Metoprolol Tartrate 50 mg 05/05/20 22:00 05/07/20 10:02 Lopressor - PO 50 mg BID [facility] Administration Pantoprazole Sodium 40 mg 04/30/20 10:00 05/07/20 10:01 Protonix Iv IVPUSH 40 mg DAILY [facility] Administration IMPRESSION 1. Acute on chronic anemia 2. ESRD on HD 3. Hypokalemia 4. Chronic respiratory failure on vent 5. Hypertension 6. VREF in urine sensitive to ampicillin 7. pseudomonas in trach Plan - dialyze tomorrow if still in house - cont vent support - cont feeds - bp is stable, cont current meds - continue ampicillin per ID recs - epogen 5000 MV
[2020-05-07] MEDS: COLLAGENASE CLOSTRIDIUM HIST. 30 GRAMS TUBE TP SCH (14:00)
--- NOTE | 2020-05-07 15:00 | PN ---
Progress Note (short form) - Note Progress Note: NAD trach to vent permacath hematuria resolved vac in place Vital Signs Period Temp Pulse Resp BP Sys/Pimentel Pulse Ox Last 24 Hr 97.6 F-98.2 F 90-100 20-24 133-158/73-98 98-100 cor-rrr lungs clear abd soft,nt ext no edema +matthew CBC, BMP 05/06/20 11:00 05/06/20 11:00 Microbiology 05/02/20 03:08 Urine - Urine Matthew Urine Culture - Final NO GROWTH OBTAINED 04/28/20 01:30 Blood - Peripheral Venous Blood Culture - Final NO GROWTH AFTER 5 DAYS INCUBATION 04/28/20 01:30 Blood - Peripheral Venous Blood Culture - Final NO GROWTH AFTER 5 DAYS INCUBATION 04/28/20 12:50 Urine - Urine Matthew Urine Culture - Final Vr Ec Faecalis 04/28/20 04:55 Sputum - Endotrachea Suction/Ventilator Gram Stain - Final 04/28/20 04:55 Sputum - Endotrachea Suction/Ventilator Sputum Culture - Final Pseudomonas Aeruginosa a/p hematuria resolved- repeat urine culture no growth chronic resp failure r/o pneumonia vre uti- d/c antibioitics anemia sacral ulcer- vac placed contact isolation vre Problem List - Problems (1) Anemia Code(s): D64.9 - ANEMIA, UNSPECIFIED Qualifiers: Anemia type: other cause Other causes of anemia: other cause, not class ified Qualified Code(s): D64.89 - Other specified anemias (2) Chronic respiratory failure Code(s): J96.10 - CHRONIC RESPIRATORY FAILURE, UNSP W HYPOXIA OR HYPERCAPNIA (3) Pneumonia Code(s): J18.9 - PNEUMONIA, UNSPECIFIED ORGANISM (4) History of 2019 novel coronavirus disease (COVID-19) Code(s): Z86.19 - PERSONAL HISTORY OF OTHER INFECTIOUS AND PARASITIC DISEASES (5) ESRD (end stage renal disease) on dialysis Code(s): N18.6 - END STAGE RENAL DISEASE; Z99.2 - DEPENDENCE ON RENAL DIALYSIS
--- NOTE | 2020-05-07 15:04 | PROC ---
VAC Application - Indications Decubitus ulcer A decision was made to utilize Negative Pressure Therapy (VAC or Veraflo) to assist in: expedite wound closure through promotion of granulation tissue formation and/or help with debridement of fibrinous slough thus decreasing need for serial debridements. - Wound description Wound location: Sacrum Length (cm): 12 Width (cm): 8 Depth (cm): 7 Wound area (sq cm): 96.00 Wound Description: Bone exposed: Yes, Undermining: Yes (Rt lateral aspect) - Device VAC Selection: NPT - Procedure Area cleansed. Prepped/draped. Black foam tailored to fit just inside of wound borders to encourage wound contracture. An occlusive dressing applied. Suction disc placed in location so as not to be uncomfortable for the patient or cause any pressure point foam bridge to hip. Good seal as verified by complete foam collapse and no leak on unit monitor. Pressure set to 125 mmHg, continuous. Dressing changes: -W- - CPT Code CPT code: 22462-[id number] >50 sq cm
[2020-05-07] MEDS ORDERED: PT OWN MED DRAWER 7, Y5N ONE (21:32)
[2020-05-07] MEDS: ATORVASTATIN CA 40 MG TABLET (FP) GT SCH (21:35)
[2020-05-08] MEDS: levETIRAcetam 500 MG/5 ML ORAL SOLUTION (UNIT-DOSE CUPS) GT SCH (05:42)
[2020-05-08 08:29] LABS: BILIRUBIN,TOTAL 0.7 mg/dL (0.2-1); BLOOD UREA NITROGEN 63.7 mg/dL (7-18); CALCIUM 9.7 mg/dL (8.5-10.1); CREATININE 3.2 mg/dL (0.55-1.3); POTASSIUM 3.5 mmol/L (3.5-5.1); TOT PROT 6.3 g/dl (6.4-8.2)
[2020-05-08 08:41] LABS: BASO % 0.3 % (0-2.0); EOS % 5.7 % (0-4.5); HEMATOCRIT 24.9 % (35.4-49); HEMOGLOBIN 7.7 GM/dL (11.7-16.9); LYMPH % 10.8 % (8-40); MEAN CELL VOLUME 80.8 fl (80-96); MEAN PLT VOLUME 6.2 fl (7.5-11.1); MONO % 5.4 % (3.8-10.2); NEUT % 77.8 % (42.8-82.8); PLATELET COUNT 326 K/MM3 (134-434); RBC 3.08 M/mm3 (4.00-5.60); RDW 19.8 % (11.9-15.9); WHITE BLOOD COUNT 11.2 K/mm3 (4.0-10.0)
--- NOTE | 2020-05-08 08:54 | PN ---
Progress Note (short form) - Note Progress Note: SCHEDULED FOR DISCHARGE TODAY TO SNF MAY HAVE HD PRIOR, RENAL F/U
--- NOTE | 2020-05-08 10:36 | PN ---
Progress Note, Physician History of Present Illness: PULMONARY LETHARGIC ON VENT SUPPORT AC MODE -RESP DISTRESS,AFEBRILE - Current Medication List Current Medications: Active Medications Amino Acids (Prosource No Carb Liquid Pkt) 30 ml GT BIDWM [facility] Last Admin: 05/07/20 17:10 Dose: 30 ml Documented by: Amlodipine Besylate (Norvasc -) 2.5 mg GT DAILY [facility] Last Admin: 05/07/20 10:02 Dose: 2.5 mg Documented by: Atorvastatin Calcium (Lipitor -) 40 mg GT HS [facility] Last Admin: 05/07/20 21:35 Dose: 40 mg Documented by: Collagenase (Santyl -) 1 applic TP DAILY [facility]; Protocol Last Admin: 05/07/20 14:00 Dose: 1 applic Documented by: Ferrous Sulfate (Feosol) 300 mg GT BID [facility] Last Admin: 05/07/20 21:35 Dose: 300 mg Documented by: Levetiracetam (Keppra Oral Solution -) 500 mg GT DAILY@0600 [facility] Last Admin: 05/08/20 05:42 Dose: 500 mg Documented by: Levetiracetam (Keppra Oral Solution -) 250 mg GT TUTHSA@1800 [facility] Last Admin: 05/05/20 19:26 Dose: 250 mg Documented by: Metoprolol Tartrate (Lopressor -) 50 mg PO BID [facility] Last Admin: 05/07/20 21:35 Dose: 50 mg Documented by: Pantoprazole Sodium (Protonix Iv) 40 mg IVPUSH DAILY [facility] Last Admin: 05/07/20 10:01 Dose: 40 mg Documented by: - Objective Vital Signs: Vital Signs Temperature 98 F 05/08/20 05:00 Pulse Rate 97 H 05/08/20 05:00 Respiratory Rate 20 05/08/20 08:00 Blood Pressure 132/77 05/08/20 05:00 O2 Sat by Pulse Oximetry (%) 99 05/08/20 08:00 Constitutional: Yes: Well Nourished, Other (LETHARGIC) Eyes: Yes: WNL HENT: Yes: WNL Neck: Yes: Supple Cardiovascular: Yes: Regular Rate and Rhythm, S1, S2 Respiratory: Yes: Diminished Gastrointestinal: Yes: Normal Bowel Sounds, Soft Extremities: Yes: WNL Edema: Yes Labs: CBC, BMP 05/08/20 07:18 05/08/20 07:18 INR, PTT INR 1.06 (0.83-1.09) 04/27/20 16:22 Problem List - Problems (1) Anemia Code(s): D64.9 - ANEMIA, UNSPECIFIED Qualifiers: Anemia type: other cause Other causes of anemia: other cause, not c lassified Qualified Code(s): D64.89 - Other specified anemias (2) Chronic respiratory failure Code(s): J96.10 - CHRONIC RESPIRATORY FAILURE, UNSP W HYPOXIA OR HYPERCAPNIA (3) ESRD (end stage renal disease) on dialysis Code(s): N18.6 - END STAGE RENAL DISEASE; Z99.2 - DEPENDENCE ON RENAL DIALYSIS (4) Encounter for screening laboratory testing for COVID-19 virus Code(s): Z11.59 - ENCOUNTER FOR SCREENING FOR OTHER VIRAL DISEASES (5) GERD (gastroesophageal reflux disease) Code(s): K21.9 - GASTRO-ESOPHAGEAL REFLUX DISEASE WITHOUT ESOPHAGITIS (6) HLD (hyperlipidemia) Code(s): E78.5 - HYPERLIPIDEMIA, UNSPECIFIED (7) HTN (hypertension) Code(s): I10 - ESSENTIAL (PRIMARY) HYPERTENSION (8) Pneumonia Code(s): J18.9 - PNEUMONIA, UNSPECIFIED ORGANISM Assessment/Plan IMP CHRONIC RESPIRATORY FAILURE H/O COVID 19 H/O PNEUMONIA UTI ANEMIA ESRD ON HD H/O CVA HTN HLD PLAN VENT SUPPORT ON A MODE INHALED BRONCHODILATORS NORMAL TRANSFUSION THRESHOLD MONITOR H+H,LYTES F/U CHEST X-RAYS HD PER RENAL DR LAMAR
[2020-05-08] MEDS: AMINO ACIDS/PROTEIN HYDROLYS 30 ML LIQUID.PKT GT SCH (10:53)
[2020-05-08] MEDS: METOPROLOL TARTRATE 25 MG TABLET (FP) PO SCH (10:54)
[2020-05-08] MEDS: FERROUS SO4 300 MG/5 ML ORAL SOLN UNIT DOSE CUPS GT SCH (10:54)
[2020-05-08] MEDS: COLLAGENASE CLOSTRIDIUM HIST. 30 GRAMS TUBE TP SCH (10:55)
[2020-05-08] MEDS: PANTOPRAZOLE SODIUM 40 MG VIAL IVPUSH SCH (10:55)
[2020-05-08] MEDS: amLODIPine BESYLATE 5 MG TABLET (FP) GT SCH (10:55)
--- NOTE | 2020-05-08 12:21 | PN ---
Progress Note (short form) - Note Progress Note: RENAL Pt is awake and alert comfortable remains trached makes eye contact Last Vital Signs Temp Pulse Resp BP Pulse Ox 98 F 97 H 20 132/77 100 05/08/20 05:00 05/08/20 05:00 05/08/20 11:58 05/08/20 05:00 05/08/20 11:58 trach lungs diminished breath sounds cvs s1s2 rr abd soft ext no edema in LE neuro a+ox3 CBC, BMP 05/08/20 07:18 05/08/20 07:18 Generic Name Dose Route Start Last Admin Trade Name Freq PRN Reason Stop Dose Admin Amino Acids 30 ml 05/04/20 08:00 05/07/20 09:00 Prosource No Carb Liquid Pkt GT 30 ml BIDWM [facility] Administration Amlodipine Besylate 2.5 mg 05/06/20 13:15 05/07/20 10:02 Norvasc - GT 2.5 mg DAILY [facility] Administration Atorvastatin Calcium 40 mg 04/28/20 22:00 05/06/20 21:31 Lipitor - GT 40 mg HS [facility] Administration Collagenase 1 applic 05/02/20 10:00 05/06/20 09:55 Santyl - TP 1 applic DAILY [facility] Administration Protocol Ferrous Sulfate 300 mg 04/30/20 11:45 05/07/20 10:02 Feosol GT 300 mg BID [facility] Administration Ampicillin Sodium 1 gm/ Sodium 100 mls @ 200 mls/hr 05/02/20 14:45 05/07/20 10:10 Chloride IVPB 200 mls/hr BID [facility] Administration Protocol Levetiracetam 500 mg 04/28/20 06:00 05/07/20 06:56 Keppra Oral Solution - GT 500 mg DAILY@0600 [facility] Administration Levetiracetam 250 mg 04/28/20 18:00 05/05/20 19:26 Keppra Oral Solution - GT 250 mg TUTHSA@1800 [facility] Administration Metoprolol Tartrate 50 mg 05/05/20 22:00 05/07/20 10:02 Lopressor - PO 50 mg BID [facility] Administration Pantoprazole Sodium 40 mg 04/30/20 10:00 05/07/20 10:01 Protonix Iv IVPUSH 40 mg DAILY [facility] Administration IMPRESSION 1. Acute on chronic anemia 2. ESRD on HD 3. Hypokalemia 4. Chronic respiratory failure on vent 5. Hypertension 6. VREF in urine sensitive to ampicillin 7. pseudomonas in trach Plan -it may be difficult to dialyze this patient today. -can be discharged and dialyzed as outpatient MV
[2020-05-08 15:54] VITALS: BP 110/65; PULSE 85; TEMP 99
== END 2020-05-08 16:43 | DRG 130 ==
LOC: JER 15:56 → JERBED 20:01 → J5S 04-28 03:36
PROVIDERS: ADMIT Internal Medicine; ATTEND Family Medicine
PROC: 5A1955Z Respiratory Ventilation, Greater than 96 Consecutive Hours (ICD-10-PCS; principal; 2020-04-27)
PROC: 30233N1 Transfusion of Nonautologous Red Blood Cells into Peripheral Vein, Percutaneous Approach (ICD-10-PCS; 2020-04-27)
PROC: 2W15X6Z Compression of Back using Pressure Dressing (ICD-10-PCS; 2020-05-04)
PROC: 5A1D70Z Performance of Urinary Filtration, Intermittent, Less than 6 Hours Per Day (ICD-10-PCS; 2020-05-05)
PROC: 2W15X6Z Compression of Back using Pressure Dressing (ICD-10-PCS; 2020-05-07)
DX: J18.9 Pneumonia, unspecified organism (principal); Z99.2 Dependence on renal dialysis; E78.5 Hyperlipidemia, unspecified; K21.9 Gastro-esophageal reflux disease without esophagitis; E66.9 Obesity, unspecified; Z68.36 Body mass index [BMI] 36.0-36.9, adult; K92.1 Melena; E87.6 Hypokalemia; R31.9 Hematuria, unspecified; N39.0 Urinary tract infection, site not specified; L89.154 Pressure ulcer of sacral region, stage 4; I12.0 Hypertensive chronic kidney disease with stage 5 chronic kidney disease or end stage renal disease; B95.2 Enterococcus as the cause of diseases classified elsewhere; B96.5 Pseudomonas (aeruginosa) (mallei) (pseudomallei) as the cause of diseases classified elsewhere; D63.1 Anemia in chronic kidney disease; Z93.0 Tracheostomy status; J96.10 Chronic respiratory failure, unspecified whether with hypoxia or hypercapnia; N18.6 End stage renal disease; Z99.11 Dependence on respirator [ventilator] status; Z93.1 Gastrostomy status; L89.892 Pressure ulcer of other site, stage 2; L89.890 Pressure ulcer of other site, unstageable
CPT/HCPCS: 36415; 36430; 71045-TC-FY; 76775-TC; 76856-TC; 80048; 80053; 81003; 82272; 82607; 82728; 82746; 83010; 83516; 83540; 83550; 83615; 83735; 84100; 84132; 84439; 84443; 85025; 85027; 85610; 86140; 86803; 86850; 86900; 86901; 86922; 87040; 87070; 87086; 87186; 87205; 87340; 93005; 93010; 94002; 99285-25; J0885; J1439; J1756; P9058; Q5106; U0003

== ENCOUNTER 2020-06-08 11:48 | Inpatient (IN) | payer OTHER ==
[2020-06-08 13:22] LABS: BASO % 0.4 % (0-2.0); EOS % 5.9 % (0-4.5); HEMATOCRIT 22.9 % (35.4-49); HEMOGLOBIN 7.2 GM/dL (11.7-16.9); LYMPH % 12.4 % (8-40); MCH 25.8 pg (25.7-33.7); MCHC 31.3 g/dl (32.0-35.9); MEAN CELL VOLUME 82.4 fl (80-96); MEAN PLT VOLUME 6.7 fl (7.5-11.1); MONO % 5.6 % (3.8-10.2); NEUT % 75.7 % (42.8-82.8); PLATELET COUNT 371 K/MM3 (134-434); RBC 2.78 M/mm3 (4.00-5.60); RDW 17.6 % (11.9-15.9); WHITE BLOOD COUNT 12.5 K/mm3 (4.0-10.0)
[2020-06-08 13:30] LABS: INR 1.08 (0.83-1.09); PROTHROMBIN TIME (PATIENT) 12.7 SEC (9.7-13.0)
[2020-06-08 13:32] LABS: ACTIVATED PTT 29.7 SECONDS (25.2-36.5)
[2020-06-08 13:59] LABS: ALBUMIN 2.2 g/dl (3.4-5.0); ALK PHOS 138 U/L (45-117); ANION GAP 10 MMOL/L (8-16); BILIRUBIN,TOTAL 0.4 mg/dL (0.2-1); BLOOD UREA NITROGEN 74.3 mg/dL (7-18); CALCIUM 10.6 mg/dL (8.5-10.1); CHLORIDE 93 mmol/L (98-107); CO2 28 mmol/L (21-32); CREATININE 2.7 mg/dL (0.55-1.3); GLUCOSE,RANDOM 97 mg/dL (74-106); POTASSIUM 3.2 mmol/L (3.5-5.1); SGOT/AST 13 U/L (15-37); SGPT/ALT 23 U/L (13-61); SODIUM 131 mmol/L (136-145); TOT PROT 7.4 g/dl (6.4-8.2)
[2020-06-08] MEDS ORDERED: PANTOPRAZOLE SODIUM 40 MG VIAL IVPUSH ONE (14:23)
[2020-06-08] MEDS ORDERED: PANTOPRAZOLE SODIUM 40 MG/100 ML BAG IVPB ONE (14:40)
[2020-06-08] MEDS: AMINO ACIDS/PROTEIN HYDROLYS 30 ML LIQUID.PKT GT SCH (17:35)
[2020-06-08] MEDS ORDERED: ALBUTEROL SO4 HFA INHALER IH PRN (17:51)
[2020-06-08] MEDS ORDERED: SODIUM CHLORIDE 250 ML IV PRN (18:52)
[2020-06-09] MEDS ORDERED: METOPROLOL TARTRATE 25 MG TABLET (FP) ONE (01:40)
[2020-06-09] MEDS ORDERED: ATORVASTATIN CA 40 MG TABLET (FP) ONE (01:41)
[2020-06-09] MEDS ORDERED: FAMOTIDINE 20 MG TABLET ONE (01:41)
[2020-06-09] MEDS ORDERED: SENNOSIDES 8.6MG TABLET (FP) PO ONE (01:41)
[2020-06-09] MEDS: FERROUS SO4 300 MG/5 ML ORAL SOLN UNIT DOSE CUPS GT SCH ×3 (01:55→22:19)
[2020-06-09] MEDS: ATORVASTATIN CA 40 MG TABLET (FP) GT SCH ×2 (01:55→22:19)
[2020-06-09] MEDS: FAMOTIDINE 40 MG/5 ML ORAL SUSPENSION NGT SCH ×3 (01:56→22:20)
[2020-06-09] MEDS: MIDODRINE HCL 5 MG TABLET GT SCH ×4 (01:56→22:20)
[2020-06-09] MEDS: METOPROLOL TARTRATE 25 MG TABLET (FP) GT SCH ×3 (01:56→22:19)
[2020-06-09] MEDS: SENNOSIDES 8.6MG TABLET (FP) PO SCH ×2 (01:56→22:20)
[2020-06-09] MEDS: levETIRAcetam 500 MG/5 ML ORAL SOLUTION (UNIT-DOSE CUPS) GT SCH (05:49)
[2020-06-09 09:08] LABS: BASO % 0.6 % (0-2.0); EOS % 4.4 % (0-4.5); HEMATOCRIT 25.9 % (35.4-49); HEMOGLOBIN 8.7 GM/dL (11.7-16.9); LYMPH % 10.8 % (8-40); MCH 27.6 pg (25.7-33.7); MCHC 33.6 g/dl (32.0-35.9); MEAN CELL VOLUME 82.1 fl (80-96); MEAN PLT VOLUME 6.8 fl (7.5-11.1); MONO % 5.4 % (3.8-10.2); NEUT % 78.8 % (42.8-82.8); PLATELET COUNT 347 K/MM3 (134-434); RBC 3.16 M/mm3 (4.00-5.60); RDW 16.5 % (11.9-15.9); WHITE BLOOD COUNT 12.3 K/mm3 (4.0-10.0)
[2020-06-09 09:34] LABS: ALBUMIN 2.2 g/dl (3.4-5.0); BILIRUBIN,TOTAL 0.5 mg/dL (0.2-1); BLOOD UREA NITROGEN 88.4 mg/dL (7-18); CALCIUM 10.7 mg/dL (8.5-10.1); CREATININE 3.3 mg/dL (0.55-1.3); POTASSIUM 3.3 mmol/L (3.5-5.1); TOT PROT 7.2 g/dl (6.4-8.2)
[2020-06-09] MEDS ORDERED: PATIENT'S OWN MEDICATION (NON-FORMULARY) (Esomeprazole Magnesium [Nexium 24hr] 40 MG) GT SCH (10:00)
[2020-06-09] MEDS ORDERED: PANTOPRAZOLE SODIUM 40 MG VIAL IVPUSH SCH (10:00)
[2020-06-09] MEDS: ALBUTEROL SO4 2.5/IPRATROPIUM 0.5 INH SOL 3 ML VIAL.NEB. NEB SCH ×3 (10:40→20:48)
[2020-06-09] MEDS: amLODIPine BESYLATE 5 MG TABLET (FP) GT SCH (11:21)
[2020-06-09] MEDS: AMINO ACIDS/PROTEIN HYDROLYS 30 ML LIQUID.PKT GT SCH ×2 (11:21→17:13)
[2020-06-09] MEDS: CALCIUM ACETATE 667 MG CAPSULE (FP) GT SCH ×3 (11:23→17:12)
[2020-06-09] MEDS ORDERED: levETIRAcetam 500 MG/5 ML ORAL SOLUTION (UNIT-DOSE CUPS) GT SCH (18:00)
[2020-06-09] MEDS ORDERED: PT OWN MED DRAWER 7, Y5N ONE (21:03)
[2020-06-10] MEDS: MIDODRINE HCL 5 MG TABLET GT SCH ×3 (05:02→22:50)
[2020-06-10] MEDS: levETIRAcetam 500 MG/5 ML ORAL SOLUTION (UNIT-DOSE CUPS) GT SCH (05:02)
[2020-06-10] MEDS: ALBUTEROL SO4 2.5/IPRATROPIUM 0.5 INH SOL 3 ML VIAL.NEB. NEB SCH ×4 (08:00→19:05)
[2020-06-10 08:23] LABS: BASO % 0.4 % (0-2.0); HEMATOCRIT 28.6 % (35.4-49); HEMOGLOBIN 9.1 GM/dL (11.7-16.9); LYMPH % 11.2 % (8-40); MCH 26.3 pg (25.7-33.7); MCHC 31.7 g/dl (32.0-35.9); MEAN CELL VOLUME 83.1 fl (80-96); MEAN PLT VOLUME 6.7 fl (7.5-11.1); MONO % 7.1 % (3.8-10.2); NEUT % 77.3 % (42.8-82.8); PLATELET COUNT 349 K/MM3 (134-434); RBC 3.44 M/mm3 (4.00-5.60); RDW 17.1 % (11.9-15.9); WHITE BLOOD COUNT 11.6 K/mm3 (4.0-10.0)
[2020-06-10 08:39] LABS: CALCIUM 10.3 mg/dL (8.5-10.1); CREATININE 2.6 mg/dL (0.55-1.3); POTASSIUM 3.6 mmol/L (3.5-5.1)
[2020-06-10 08:51] LABS: BLOOD UREA NITROGEN 55.6 mg/dL (7-18)
[2020-06-10] MEDS: AMINO ACIDS/PROTEIN HYDROLYS 30 ML LIQUID.PKT GT SCH ×2 (10:49→17:29)
[2020-06-10] MEDS: METOPROLOL TARTRATE 25 MG TABLET (FP) GT SCH ×2 (10:50→22:49)
[2020-06-10] MEDS: CALCIUM ACETATE 667 MG CAPSULE (FP) GT SCH ×3 (10:50→17:29)
[2020-06-10] MEDS: FERROUS SO4 300 MG/5 ML ORAL SOLN UNIT DOSE CUPS GT SCH ×2 (10:50→22:47)
[2020-06-10] MEDS: amLODIPine BESYLATE 5 MG TABLET (FP) GT SCH (10:51)
[2020-06-10] MEDS: FAMOTIDINE 40 MG/5 ML ORAL SUSPENSION NGT SCH ×2 (10:58→22:48)
[2020-06-10] MEDS ORDERED: SODIUM CHLORIDE 250 ML IV PRN (20:35)
[2020-06-10] MEDS: SENNOSIDES 8.6MG TABLET (FP) PO SCH (22:48)
[2020-06-10] MEDS: ATORVASTATIN CA 40 MG TABLET (FP) GT SCH (22:51)
[2020-06-11] MEDS: levETIRAcetam 500 MG/5 ML ORAL SOLUTION (UNIT-DOSE CUPS) GT SCH (06:12)
[2020-06-11] MEDS: MIDODRINE HCL 5 MG TABLET GT SCH (06:12)
[2020-06-11] MEDS: ALBUTEROL SO4 2.5/IPRATROPIUM 0.5 INH SOL 3 ML VIAL.NEB. NEB SCH ×4 (07:40→20:16)
[2020-06-11] MEDS ORDERED: PT OWN MED DRAWER 7, Y5N ONE ×2 (09:20→22:29)
[2020-06-11] MEDS: CALCIUM ACETATE 667 MG CAPSULE (FP) GT SCH ×3 (09:27→17:42)
[2020-06-11] MEDS: FERROUS SO4 300 MG/5 ML ORAL SOLN UNIT DOSE CUPS GT SCH ×3 (09:27→22:35)
[2020-06-11] MEDS: FAMOTIDINE 40 MG/5 ML ORAL SUSPENSION NGT SCH ×2 (09:27→22:36)
[2020-06-11] MEDS: AMINO ACIDS/PROTEIN HYDROLYS 30 ML LIQUID.PKT GT SCH ×2 (09:27→17:42)
[2020-06-11] MEDS ORDERED: FERRIC CARBOXYMALTOSE 750 MG in SODIUM CHLORIDE 250 ML IVPB ONE (11:00)
[2020-06-11 11:56] LABS: BASO % 0.3 % (0-2.0); HEMATOCRIT 30.1 % (35.4-49); HEMOGLOBIN 9.8 GM/dL (11.7-16.9); LYMPH % 5.2 % (8-40); MCH 27.1 pg (25.7-33.7); MCHC 32.5 g/dl (32.0-35.9); MEAN CELL VOLUME 83.3 fl (80-96); MEAN PLT VOLUME 6.7 fl (7.5-11.1); MONO % 4.2 % (3.8-10.2); NEUT % 87.3 % (42.8-82.8); PLATELET COUNT 407 K/MM3 (134-434); RBC 3.62 M/mm3 (4.00-5.60); RDW 16.9 % (11.9-15.9); WHITE BLOOD COUNT 18.8 K/mm3 (4.0-10.0)
[2020-06-11] MEDS: METOPROLOL TARTRATE 25 MG TABLET (FP) GT SCH (13:39)
[2020-06-11] MEDS: amLODIPine BESYLATE 5 MG TABLET (FP) GT SCH (13:39)
[2020-06-11 14:25] LABS: ALBUMIN 2.5 g/dl (3.4-5.0); BILIRUBIN,TOTAL 0.6 mg/dL (0.2-1); BLOOD UREA NITROGEN 40.1 mg/dL (7-18); CALCIUM 10.4 mg/dL (8.5-10.1); CREATININE 2.1 mg/dL (0.55-1.3); POTASSIUM 3.3 mmol/L (3.5-5.1); TOT PROT 7.9 g/dl (6.4-8.2)
[2020-06-11 16:26] LABS: EPI CELLS 30 /uL (0-25.1); HYALINE CASTS 6 /uL (0-3.1); URINE APPEARANCE TURBID; URINE BACTERIA 237 /uL (0-1359); URINE BILIRUBIN 1+ (NEGATIVE); URINE COLOR DK YELLOW; URINE GLUCOSE (UA) NEGATIVE (NEGATIVE); URINE KETONE NEGATIVE (NEGATIVE); URINE LEUK ESTERASE 3+ (NEGATIVE); URINE NITRITE NEGATIVE (NEGATIVE); URINE PROTEIN 3+ (NEGATIVE); URINE UROBILINOGEN 0.2 mg/dL (0.2-1.0); URINE WBC 14495 /uL (0-25.8)
[2020-06-11 16:47] LABS: URINE RBC 300.1 /uL (0-23.9)
[2020-06-11] MEDS ORDERED: POTASSIUM CHLORIDE ORAL LIQUID 20 MEQ/15 ML GT ONE (17:33)
[2020-06-11 20:07] LABS: HEP B CORE AB, TOT Negative (Negative)
[2020-06-11] MEDS: SENNOSIDES 8.6MG TABLET (FP) PO SCH (22:35)
[2020-06-11] MEDS: ATORVASTATIN CA 40 MG TABLET (FP) GT SCH (22:35)
[2020-06-12] MEDS: FERROUS SO4 300 MG/5 ML ORAL SOLN UNIT DOSE CUPS GT SCH ×3 (06:09→22:40)
[2020-06-12] MEDS: ALBUTEROL SO4 2.5/IPRATROPIUM 0.5 INH SOL 3 ML VIAL.NEB. NEB SCH ×4 (07:50→20:35)
[2020-06-12] MEDS: AMINO ACIDS/PROTEIN HYDROLYS 30 ML LIQUID.PKT GT SCH ×2 (08:50→17:10)
[2020-06-12] MEDS: CALCIUM ACETATE 667 MG CAPSULE (FP) GT SCH (08:50)
[2020-06-12 09:23] LABS: BASO % 0.4 % (0-2.0); EOS % 5.4 % (0-4.5); HEMATOCRIT 27.7 % (35.4-49); HEMOGLOBIN 8.7 GM/dL (11.7-16.9); LYMPH % 13.1 % (8-40); MCH 26.7 pg (25.7-33.7); MCHC 31.6 g/dl (32.0-35.9); MEAN CELL VOLUME 84.5 fl (80-96); MEAN PLT VOLUME 6.6 fl (7.5-11.1); MONO % 7.4 % (3.8-10.2); NEUT % 73.7 % (42.8-82.8); PLATELET COUNT 363 K/MM3 (134-434); RBC 3.27 M/mm3 (4.00-5.60); RDW 17.1 % (11.9-15.9); WHITE BLOOD COUNT 11.9 K/mm3 (4.0-10.0)
[2020-06-12] MEDS ORDERED: PT OWN MED DRAWER 7, Y5N ONE ×2 (09:55→21:37)
[2020-06-12] MEDS ORDERED: levETIRAcetam 500 MG/5 ML INJECTION VIAL IVPB SCH ×2 (10:00→18:00)
[2020-06-12] MEDS: FAMOTIDINE 40 MG/5 ML ORAL SUSPENSION NGT SCH ×2 (10:03→22:40)
[2020-06-12 10:04] LABS: BILIRUBIN,TOTAL 0.3 mg/dL (0.2-1); CALCIUM 10.5 mg/dL (8.5-10.1); CREATININE 2.8 mg/dL (0.55-1.3); POTASSIUM 3.8 mmol/L (3.5-5.1)
[2020-06-12 10:10] LABS: ALBUMIN 2.3 g/dl (3.4-5.0); TOT PROT 7.4 g/dl (6.4-8.2)
[2020-06-12] MEDS ORDERED: CEFEPIME 1 GM in DEXTROSE 5%-WATER 100 ML IVPB ONE (12:15)
[2020-06-12] MEDS ORDERED: DEXTROSE 5%-WATER 100 ML IVPB ONE (13:40)
[2020-06-12] MEDS ORDERED: CEFEPIME HCL 1 GM VIAL (RESTRICTED TO ID) ONE (13:40)
[2020-06-12] MEDS: VITAMIN B COMP W-C 1 EA TABLET (NEPHRO-VITE) PO SCH (13:42)
[2020-06-12] MEDS: COLLAGENASE CLOSTRIDIUM HIST. 30 GRAMS TUBE TP SCH (13:42)
[2020-06-12] MEDS ORDERED: DEXTROSE 5%-WATER - 50 ML IVPB ONE (17:05)
[2020-06-12] MEDS ORDERED: PIPERACILLIN/TAZOBACTAM 2.25 GM VIAL IVPB ONE (17:05)
[2020-06-12] MEDS: PIPERACILLIN/TAZOB 2.25 GM 2.25 GM in DEXTROSE 5%-WATER - 50 ML IVPB SCH (17:09)
[2020-06-12] MEDS ORDERED: levETIRAcetam 500 MG/5 ML ORAL SOLUTION (UNIT-DOSE CUPS) GT SCH (18:00)
[2020-06-12] MEDS: SENNOSIDES 8.6MG TABLET (FP) PO SCH (22:39)
[2020-06-12] MEDS: ATORVASTATIN CA 40 MG TABLET (FP) GT SCH (22:40)
[2020-06-13] MEDS ORDERED: PIPERACILLIN/TAZOBACTAM 2.25 GM VIAL IVPB ONE ×3 (02:01→17:12)
[2020-06-13] MEDS ORDERED: DEXTROSE 5%-WATER - 50 ML IVPB ONE ×3 (02:01→17:13)
[2020-06-13] MEDS: PIPERACILLIN/TAZOB 2.25 GM 2.25 GM in DEXTROSE 5%-WATER - 50 ML IVPB SCH ×3 (03:01→17:29)
[2020-06-13] MEDS: FERROUS SO4 300 MG/5 ML ORAL SOLN UNIT DOSE CUPS GT SCH ×3 (05:36→21:45)
[2020-06-13] MEDS: ALBUTEROL SO4 2.5/IPRATROPIUM 0.5 INH SOL 3 ML VIAL.NEB. NEB SCH ×4 (08:25→20:28)
[2020-06-13 08:36] LABS: BASO % 0.3 % (0-2.0); EOS % 6.5 % (0-4.5); HEMATOCRIT 26.8 % (35.4-49); HEMOGLOBIN 8.5 GM/dL (11.7-16.9); LYMPH % 11.1 % (8-40); MCH 26.8 pg (25.7-33.7); MCHC 31.9 g/dl (32.0-35.9); MEAN PLT VOLUME 6.7 fl (7.5-11.1); MONO % 6.6 % (3.8-10.2); NEUT % 75.5 % (42.8-82.8); PLATELET COUNT 335 K/MM3 (134-434); RBC 3.19 M/mm3 (4.00-5.60); RDW 16.5 % (11.9-15.9); WHITE BLOOD COUNT 11.8 K/mm3 (4.0-10.0)
[2020-06-13 08:55] LABS: ALBUMIN 2.3 g/dl (3.4-5.0); BLOOD UREA NITROGEN 78.3 mg/dL (7-18); CALCIUM 10.3 mg/dL (8.5-10.1); CREATININE 3.4 mg/dL (0.55-1.3); POTASSIUM 3.9 mmol/L (3.5-5.1)
[2020-06-13 08:58] LABS: BILIRUBIN,TOTAL 0.4 mg/dL (0.2-1); TOT PROT 7.3 g/dl (6.4-8.2)
[2020-06-13] MEDS ORDERED: SODIUM CHLORIDE 250 ML IV PRN (09:11)
[2020-06-13] MEDS ORDERED: EPOETIN ALFA-EPBX 4,000 UNIT/ML VIAL SQ ONE (10:00)
[2020-06-13] MEDS ORDERED: PT OWN MED DRAWER 7, Y5N ONE (13:04)
[2020-06-13] MEDS: levETIRAcetam 500 MG/5 ML ORAL SOLUTION (UNIT-DOSE CUPS) GT SCH (13:05)
[2020-06-13] MEDS: VITAMIN B COMP W-C 1 EA TABLET (NEPHRO-VITE) PO SCH (13:05)
[2020-06-13] MEDS: FAMOTIDINE 40 MG/5 ML ORAL SUSPENSION NGT SCH ×2 (13:05→21:45)
[2020-06-13] MEDS: COLLAGENASE CLOSTRIDIUM HIST. 30 GRAMS TUBE TP SCH (13:06)
[2020-06-13] MEDS: AMINO ACIDS/PROTEIN HYDROLYS 30 ML LIQUID.PKT GT SCH ×2 (13:06→17:29)
[2020-06-13] MEDS: ACETAMINOPHEN 650 MG/20.3 ML ORAL SOLUTION (CUPS) PO PRN (17:29)
[2020-06-13] MEDS ORDERED: metoPROLOL SUCCINATE 25 MG TAB.SR.24H (FP) PO SCH (19:45)
[2020-06-13] MEDS: ATORVASTATIN CA 40 MG TABLET (FP) GT SCH (21:46)
[2020-06-13] MEDS: SENNOSIDES 8.6MG TABLET (FP) PO SCH (21:46)
[2020-06-14] MEDS ORDERED: PIPERACILLIN/TAZOBACTAM 2.25 GM VIAL IVPB ONE ×3 (00:34→17:06)
[2020-06-14] MEDS ORDERED: DEXTROSE 5%-WATER - 50 ML IVPB ONE ×3 (00:34→17:06)
[2020-06-14] MEDS: PIPERACILLIN/TAZOB 2.25 GM 2.25 GM in DEXTROSE 5%-WATER - 50 ML IVPB SCH ×3 (01:25→17:20)
[2020-06-14] MEDS: FERROUS SO4 300 MG/5 ML ORAL SOLN UNIT DOSE CUPS GT SCH ×3 (05:08→22:17)
[2020-06-14] MEDS: ALBUTEROL SO4 2.5/IPRATROPIUM 0.5 INH SOL 3 ML VIAL.NEB. NEB SCH ×4 (07:50→20:16)
[2020-06-14] MEDS ORDERED: SODIUM CHLORIDE 0.45%/POT 20 MEQ/1,000 ML INFUS.BAG IV SCH (08:45)
[2020-06-14] MEDS: AMINO ACIDS/PROTEIN HYDROLYS 30 ML LIQUID.PKT GT SCH ×3 (08:55→17:20)
[2020-06-14] MEDS: COLLAGENASE CLOSTRIDIUM HIST. 30 GRAMS TUBE TP SCH (09:28)
[2020-06-14] MEDS: SODIUM CHLORIDE 0.45%/POT 20 MEQ/1,000 ML INFUS.BAG IV SCH (11:00)
[2020-06-14 11:26] LABS: BASO % 0.5 % (0-2.0); EOS % 5.1 % (0-4.5); HEMATOCRIT 28.2 % (35.4-49); HEMOGLOBIN 8.8 GM/dL (11.7-16.9); MCH 26.5 pg (25.7-33.7); MCHC 31.3 g/dl (32.0-35.9); MEAN CELL VOLUME 84.6 fl (80-96); MONO % 5.6 % (3.8-10.2); NEUT % 75.8 % (42.8-82.8); PLATELET COUNT 332 K/MM3 (134-434); RBC 3.33 M/mm3 (4.00-5.60); RDW 16.8 % (11.9-15.9); WHITE BLOOD COUNT 12.3 K/mm3 (4.0-10.0)
[2020-06-14 11:58] LABS: ALBUMIN 2.3 g/dl (3.4-5.0); BILIRUBIN,TOTAL 0.5 mg/dL (0.2-1); BLOOD UREA NITROGEN 54.6 mg/dL (7-18); CALCIUM 10.7 mg/dL (8.5-10.1); CREATININE 2.6 mg/dL (0.55-1.3); POTASSIUM 4.1 mmol/L (3.5-5.1); TOT PROT 7.8 g/dl (6.4-8.2)
[2020-06-14] MEDS: FAMOTIDINE 40 MG/5 ML ORAL SUSPENSION NGT SCH ×2 (14:30→22:17)
[2020-06-14] MEDS: VITAMIN B COMP W-C 1 EA TABLET (NEPHRO-VITE) PO SCH (14:30)
[2020-06-14] MEDS: levETIRAcetam 500 MG/5 ML ORAL SOLUTION (UNIT-DOSE CUPS) GT SCH (14:30)
[2020-06-14] MEDS: METOPROLOL TARTRATE 25 MG TABLET (FP) PO SCH ×2 (14:30→22:17)
[2020-06-14] MEDS ORDERED: PT OWN MED DRAWER 7, Y5N ONE (22:00)
[2020-06-14] MEDS: SENNOSIDES 8.6MG TABLET (FP) PO SCH (22:17)
[2020-06-14] MEDS: ATORVASTATIN CA 40 MG TABLET (FP) GT SCH (22:17)
[2020-06-15] MEDS ORDERED: PIPERACILLIN/TAZOBACTAM 2.25 GM VIAL IVPB ONE ×2 (00:42→13:55)
[2020-06-15] MEDS ORDERED: DEXTROSE 5%-WATER - 50 ML IVPB ONE ×2 (00:42→13:55)
[2020-06-15] MEDS: PIPERACILLIN/TAZOB 2.25 GM 2.25 GM in DEXTROSE 5%-WATER - 50 ML IVPB SCH ×3 (01:31→17:30)
[2020-06-15] MEDS: FERROUS SO4 300 MG/5 ML ORAL SOLN UNIT DOSE CUPS GT SCH ×3 (05:00→23:30)
[2020-06-15] MEDS: AMINO ACIDS/PROTEIN HYDROLYS 30 ML LIQUID.PKT GT SCH ×2 (09:00→17:31)
[2020-06-15] MEDS: ALBUTEROL SO4 2.5/IPRATROPIUM 0.5 INH SOL 3 ML VIAL.NEB. NEB SCH ×4 (09:20→20:00)
[2020-06-15] MEDS: FAMOTIDINE 40 MG/5 ML ORAL SUSPENSION NGT SCH ×2 (10:28→23:30)
[2020-06-15] MEDS: METOPROLOL TARTRATE 25 MG TABLET (FP) PO SCH ×2 (10:28→23:30)
[2020-06-15] MEDS: COLLAGENASE CLOSTRIDIUM HIST. 30 GRAMS TUBE TP SCH (10:28)
[2020-06-15] MEDS: levETIRAcetam 500 MG/5 ML ORAL SOLUTION (UNIT-DOSE CUPS) GT SCH ×2 (10:29→23:31)
[2020-06-15] MEDS: EPOETIN ALFA-EPBX 10,000 UNIT/ML VIAL IVPUSH SCH (10:53)
[2020-06-15] MEDS: VITAMIN B COMP W-C 1 EA TABLET (NEPHRO-VITE) PO SCH (14:05)
[2020-06-15] MEDS ORDERED: ALBUTEROL SO4 2.5/IPRATROPIUM 0.5 INH SOL 3 ML VIAL.NEB. NEB ONE (16:27)
[2020-06-15] MEDS: SODIUM CHLORIDE 0.45%/POT 20 MEQ/1,000 ML INFUS.BAG IV SCH (17:55)
[2020-06-15] MEDS ORDERED: levETIRAcetam 500 MG/5 ML INJECTION VIAL IVPB ONE (22:48)
[2020-06-15] MEDS: ATORVASTATIN CA 40 MG TABLET (FP) GT SCH (23:30)
[2020-06-16] MEDS ORDERED: DEXTROSE 5%-WATER - 50 ML IVPB ONE ×3 (01:12→18:53)
[2020-06-16] MEDS ORDERED: PIPERACILLIN/TAZOBACTAM 2.25 GM VIAL IVPB ONE ×3 (01:12→18:53)
[2020-06-16] MEDS: PIPERACILLIN/TAZOB 2.25 GM 2.25 GM in DEXTROSE 5%-WATER - 50 ML IVPB SCH ×3 (01:56→18:54)
[2020-06-16] MEDS: FERROUS SO4 300 MG/5 ML ORAL SOLN UNIT DOSE CUPS GT SCH ×3 (05:41→22:43)
[2020-06-16 08:46] LABS: BASO % 0.4 % (0-2.0); EOS % 3.7 % (0-4.5); HEMATOCRIT 28.6 % (35.4-49); HEMOGLOBIN 9.1 GM/dL (11.7-16.9); LYMPH % 10.7 % (8-40); MCH 26.9 pg (25.7-33.7); MCHC 31.8 g/dl (32.0-35.9); MEAN CELL VOLUME 84.5 fl (80-96); MONO % 6.2 % (3.8-10.2); PLATELET COUNT 330 K/MM3 (134-434); RBC 3.38 M/mm3 (4.00-5.60); RDW 16.4 % (11.9-15.9); WHITE BLOOD COUNT 12.6 K/mm3 (4.0-10.0)
[2020-06-16] MEDS: AMINO ACIDS/PROTEIN HYDROLYS 30 ML LIQUID.PKT GT SCH ×3 (08:50→17:00)
[2020-06-16] MEDS: ALBUTEROL SO4 2.5/IPRATROPIUM 0.5 INH SOL 3 ML VIAL.NEB. NEB SCH ×4 (08:51→20:15)
[2020-06-16 09:11] LABS: ALBUMIN 2.2 g/dl (3.4-5.0); BILIRUBIN,TOTAL 0.6 mg/dL (0.2-1); BLOOD UREA NITROGEN 37.4 mg/dL (7-18); CALCIUM 10.3 mg/dL (8.5-10.1); CREATININE 2.3 mg/dL (0.55-1.3); POTASSIUM 3.7 mmol/L (3.5-5.1); TOT PROT 7.4 g/dl (6.4-8.2)
[2020-06-16] MEDS ORDERED: PT OWN MED DRAWER 7, Y5N ONE (10:38)
[2020-06-16] MEDS: levETIRAcetam 500 MG/5 ML ORAL SOLUTION (UNIT-DOSE CUPS) GT SCH ×2 (10:45→12:06)
[2020-06-16] MEDS: FAMOTIDINE 40 MG/5 ML ORAL SUSPENSION NGT SCH ×3 (10:45→22:43)
[2020-06-16] MEDS: VITAMIN B COMP W-C 1 EA TABLET (NEPHRO-VITE) PO SCH ×2 (10:45→12:06)
[2020-06-16] MEDS: METOPROLOL TARTRATE 25 MG TABLET (FP) PO SCH ×2 (10:45→12:06)
[2020-06-16] MEDS: COLLAGENASE CLOSTRIDIUM HIST. 30 GRAMS TUBE TP SCH (10:46)
[2020-06-16] MEDS ORDERED: METOPROLOL TARTRATE 5 MG/5 ML VIAL IVPB PRN (12:22)
[2020-06-16] MEDS: EPOETIN ALFA-EPBX 10,000 UNIT/ML VIAL IVPUSH SCH (14:57)
[2020-06-16] MEDS ORDERED: DEXTROSE 50%-WATER - 25 GM/50 ML VIAL IVPUSH PRN (15:41)
[2020-06-16] MEDS: ATORVASTATIN CA 40 MG TABLET (FP) GT SCH (22:43)
[2020-06-17] MEDS ORDERED: DEXTROSE 5%-WATER - 50 ML IVPB ONE ×3 (01:22→16:33)
[2020-06-17] MEDS ORDERED: PIPERACILLIN/TAZOBACTAM 2.25 GM VIAL IVPB ONE ×3 (01:22→16:33)
[2020-06-17] MEDS: PIPERACILLIN/TAZOB 2.25 GM 2.25 GM in DEXTROSE 5%-WATER - 50 ML IVPB SCH ×3 (01:38→17:24)
[2020-06-17] MEDS: FERROUS SO4 300 MG/5 ML ORAL SOLN UNIT DOSE CUPS GT SCH ×3 (05:03→23:16)
[2020-06-17] MEDS ORDERED: INSULIN (NOVOLOG) ASPART 100 UNITS/ML 10ML VIAL ONE (07:00)
[2020-06-17] MEDS: ALBUTEROL SO4 2.5/IPRATROPIUM 0.5 INH SOL 3 ML VIAL.NEB. NEB SCH ×3 (09:04→20:15)
[2020-06-17 09:25] LABS: BASO % 0.4 % (0-2.0); EOS % 5.5 % (0-4.5); HEMATOCRIT 26.8 % (35.4-49); HEMOGLOBIN 8.5 GM/dL (11.7-16.9); LYMPH % 13.3 % (8-40); MCH 26.6 pg (25.7-33.7); MCHC 31.7 g/dl (32.0-35.9); MEAN CELL VOLUME 83.9 fl (80-96); MEAN PLT VOLUME 6.9 fl (7.5-11.1); MONO % 7.6 % (3.8-10.2); NEUT % 73.2 % (42.8-82.8); PLATELET COUNT 345 K/MM3 (134-434); RBC 3.19 M/mm3 (4.00-5.60); RDW 16.5 % (11.9-15.9); WHITE BLOOD COUNT 10.2 K/mm3 (4.0-10.0)
[2020-06-17 09:59] LABS: POTASSIUM 3.7 mmol/L (3.5-5.1)
[2020-06-17] MEDS ORDERED: levETIRAcetam 500 MG/5 ML INJECTION VIAL IVPB SCH (10:00)
[2020-06-17 10:09] LABS: ALBUMIN 2.2 g/dl (3.4-5.0); BLOOD UREA NITROGEN 47.9 mg/dL (7-18); CALCIUM 10.7 mg/dL (8.5-10.1); CREATININE 3.2 mg/dL (0.55-1.3); TOT PROT 7.3 g/dl (6.4-8.2)
[2020-06-17] MEDS: levETIRAcetam 500 MG/5 ML INJECTION VIAL IVPB SCH (10:26)
[2020-06-17] MEDS: AMINO ACIDS/PROTEIN HYDROLYS 30 ML LIQUID.PKT GT SCH ×2 (14:16→16:56)
[2020-06-17] MEDS: FAMOTIDINE 40 MG/5 ML ORAL SUSPENSION NGT SCH ×2 (14:16→23:16)
[2020-06-17] MEDS: VITAMIN B COMP W-C 1 EA TABLET (NEPHRO-VITE) PO SCH (14:16)
[2020-06-17] MEDS: AMINO ACIDS 4.25%/D5W 1,000 ML IV SCH (14:21)
[2020-06-17] MEDS: COLLAGENASE CLOSTRIDIUM HIST. 30 GRAMS TUBE TP SCH (16:00)
[2020-06-17] MEDS: EPOETIN ALFA-EPBX 10,000 UNIT/ML VIAL IVPUSH SCH (16:29)
[2020-06-17] MEDS: ATORVASTATIN CA 40 MG TABLET (FP) GT SCH (23:16)
[2020-06-17] MEDS: METOPROLOL TARTRATE 25 MG TABLET (FP) PO SCH (23:16)
[2020-06-18] MEDS ORDERED: PIPERACILLIN/TAZOBACTAM 2.25 GM VIAL IVPB ONE ×3 (01:12→17:35)
[2020-06-18] MEDS ORDERED: DEXTROSE 5%-WATER - 50 ML IVPB ONE ×3 (01:12→17:36)
[2020-06-18] MEDS: PIPERACILLIN/TAZOB 2.25 GM 2.25 GM in DEXTROSE 5%-WATER - 50 ML IVPB SCH ×3 (01:41→17:58)
[2020-06-18] MEDS: AMINO ACIDS 4.25%/D5W 1,000 ML IV SCH ×2 (02:18→17:53)
[2020-06-18] MEDS: FERROUS SO4 300 MG/5 ML ORAL SOLN UNIT DOSE CUPS GT SCH ×4 (05:43→23:19)
[2020-06-18] MEDS: ALBUTEROL SO4 2.5/IPRATROPIUM 0.5 INH SOL 3 ML VIAL.NEB. NEB SCH ×4 (08:14→20:33)
[2020-06-18 09:51] LABS: BASO % 0.4 % (0-2.0); EOS % 5.7 % (0-4.5); HEMATOCRIT 27.3 % (35.4-49); HEMOGLOBIN 8.5 GM/dL (11.7-16.9); LYMPH % 15.2 % (8-40); MCH 26.2 pg (25.7-33.7); MCHC 31.1 g/dl (32.0-35.9); MEAN CELL VOLUME 84.4 fl (80-96); MEAN PLT VOLUME 6.9 fl (7.5-11.1); MONO % 5.6 % (3.8-10.2); NEUT % 73.1 % (42.8-82.8); PLATELET COUNT 375 K/MM3 (134-434); RBC 3.24 M/mm3 (4.00-5.60); RDW 16.6 % (11.9-15.9)
[2020-06-18 10:07] LABS: ALBUMIN 2.2 g/dl (3.4-5.0); BILIRUBIN,TOTAL 0.6 mg/dL (0.2-1); BLOOD UREA NITROGEN 58.1 mg/dL (7-18); CALCIUM 9.9 mg/dL (8.5-10.1); CREATININE 3.9 mg/dL (0.55-1.3); POTASSIUM 3.4 mmol/L (3.5-5.1); TOT PROT 7.1 g/dl (6.4-8.2)
[2020-06-18] MEDS ORDERED: SODIUM CHLORIDE 250 ML IV PRN (11:00)
[2020-06-18] MEDS ORDERED: EPOETIN ALFA-EPBX 10,000 UNIT/ML VIAL IVPUSH ONE (11:00)
[2020-06-18] MEDS ORDERED: PT OWN MED DRAWER 7, Y5N ONE ×3 (11:44→23:20)
[2020-06-18] MEDS: ACETAMINOPHEN 650 MG/20.3 ML ORAL SOLUTION (CUPS) PO PRN (13:45)
[2020-06-18] MEDS: VITAMIN B COMP W-C 1 EA TABLET (NEPHRO-VITE) PO SCH (13:45)
[2020-06-18] MEDS: levETIRAcetam 500 MG/5 ML INJECTION VIAL IVPB SCH (13:46)
[2020-06-18] MEDS: AMINO ACIDS/PROTEIN HYDROLYS 30 ML LIQUID.PKT GT SCH ×2 (13:46→17:53)
[2020-06-18] MEDS: COLLAGENASE CLOSTRIDIUM HIST. 30 GRAMS TUBE TP SCH (13:47)
[2020-06-18] MEDS: FAMOTIDINE 40 MG/5 ML ORAL SUSPENSION NGT SCH ×2 (13:47→23:36)
[2020-06-18] MEDS: METOPROLOL TARTRATE 25 MG TABLET (FP) PO SCH ×2 (13:47→23:19)
[2020-06-18] MEDS: ATORVASTATIN CA 40 MG TABLET (FP) GT SCH (23:19)
[2020-06-19] MEDS ORDERED: PIPERACILLIN/TAZOBACTAM 2.25 GM VIAL IVPB ONE ×2 (01:46→10:29)
[2020-06-19] MEDS ORDERED: DEXTROSE 5%-WATER - 50 ML IVPB ONE ×2 (01:46→10:29)
[2020-06-19] MEDS: PIPERACILLIN/TAZOB 2.25 GM 2.25 GM in DEXTROSE 5%-WATER - 50 ML IVPB SCH ×2 (02:37→10:34)
[2020-06-19] MEDS: ACETAMINOPHEN 650 MG/20.3 ML ORAL SOLUTION (CUPS) PO PRN ×2 (05:25→21:37)
[2020-06-19] MEDS: AMINO ACIDS 4.25%/D5W 1,000 ML IV SCH ×2 (05:30→21:39)
[2020-06-19] MEDS: FERROUS SO4 300 MG/5 ML ORAL SOLN UNIT DOSE CUPS GT SCH ×3 (05:42→21:38)
[2020-06-19 08:35] LABS: BASO % 0.4 % (0-2.0); EOS % 4.2 % (0-4.5); HEMATOCRIT 28.5 % (35.4-49); LYMPH % 13.5 % (8-40); MCH 26.5 pg (25.7-33.7); MCHC 31.6 g/dl (32.0-35.9); MEAN CELL VOLUME 83.9 fl (80-96); MEAN PLT VOLUME 6.9 fl (7.5-11.1); MONO % 6.4 % (3.8-10.2); NEUT % 75.5 % (42.8-82.8); PLATELET COUNT 365 K/MM3 (134-434); RBC 3.39 M/mm3 (4.00-5.60); RDW 16.4 % (11.9-15.9); WHITE BLOOD COUNT 8.8 K/mm3 (4.0-10.0)
[2020-06-19] MEDS: ALBUTEROL SO4 2.5/IPRATROPIUM 0.5 INH SOL 3 ML VIAL.NEB. NEB SCH ×4 (08:40→20:45)
[2020-06-19 08:47] LABS: ALBUMIN 2.2 g/dl (3.4-5.0); BILIRUBIN,TOTAL 0.8 mg/dL (0.2-1); BLOOD UREA NITROGEN 37.6 mg/dL (7-18); CREATININE 2.7 mg/dL (0.55-1.3); POTASSIUM 3.3 mmol/L (3.5-5.1); TOT PROT 7.2 g/dl (6.4-8.2)
[2020-06-19] MEDS: AMINO ACIDS/PROTEIN HYDROLYS 30 ML LIQUID.PKT GT SCH ×2 (09:05→17:50)
[2020-06-19] MEDS: VITAMIN B COMP W-C 1 EA TABLET (NEPHRO-VITE) PO SCH (10:34)
[2020-06-19] MEDS: METOPROLOL TARTRATE 25 MG TABLET (FP) PO SCH ×2 (10:34→21:38)
[2020-06-19] MEDS: levETIRAcetam 500 MG/5 ML INJECTION VIAL IVPB SCH (11:54)
[2020-06-19] MEDS: FAMOTIDINE 40 MG/5 ML ORAL SUSPENSION NGT SCH ×2 (12:00→21:38)
[2020-06-19] MEDS: COLLAGENASE CLOSTRIDIUM HIST. 30 GRAMS TUBE TP SCH (13:09)
[2020-06-19] MEDS: ATORVASTATIN CA 40 MG TABLET (FP) GT SCH (21:38)
[2020-06-19] MEDS: SENNOSIDES 8.6MG TABLET (FP) PO SCH (21:38)
[2020-06-19] MEDS: HEPARIN NA (PORCINE) 5,000 UNITS/ML 1ML VIAL SQ SCH (21:38)
[2020-06-20] MEDS: FERROUS SO4 300 MG/5 ML ORAL SOLN UNIT DOSE CUPS GT SCH ×3 (05:08→21:12)
[2020-06-20] MEDS: ALBUTEROL SO4 2.5/IPRATROPIUM 0.5 INH SOL 3 ML VIAL.NEB. NEB SCH ×4 (08:59→20:00)
[2020-06-20] MEDS: AMINO ACIDS/PROTEIN HYDROLYS 30 ML LIQUID.PKT GT SCH ×2 (10:25→17:05)
[2020-06-20] MEDS ORDERED: EPOETIN ALFA-EPBX 10,000 UNIT/ML VIAL IVPUSH ONE (11:00)
[2020-06-20] MEDS: HEPARIN NA (PORCINE) 5,000 UNITS/ML 1ML VIAL SQ SCH ×2 (11:04→21:13)
[2020-06-20] MEDS: FAMOTIDINE 40 MG/5 ML ORAL SUSPENSION NGT SCH ×2 (11:20→21:13)
[2020-06-20] MEDS: VITAMIN B COMP W-C 1 EA TABLET (NEPHRO-VITE) PO SCH (11:21)
[2020-06-20] MEDS: levETIRAcetam 500 MG/5 ML ORAL SOLUTION (UNIT-DOSE CUPS) GT SCH ×2 (11:22→17:05)
[2020-06-20] MEDS: AMINO ACIDS 4.25%/D5W 1,000 ML IV SCH ×2 (11:34→14:20)
[2020-06-20] MEDS: METOPROLOL TARTRATE 25 MG TABLET (FP) PO SCH ×2 (12:28→21:12)
[2020-06-20] MEDS: COLLAGENASE CLOSTRIDIUM HIST. 30 GRAMS TUBE TP SCH (14:00)
[2020-06-20 16:37] LABS: BASO % 0.2 % (0-2.0); EOS % 4.4 % (0-4.5); HEMATOCRIT 28.7 % (35.4-49); HEMOGLOBIN 9.3 GM/dL (11.7-16.9); LYMPH % 13.3 % (8-40); MCH 27.1 pg (25.7-33.7); MCHC 32.3 g/dl (32.0-35.9); MEAN CELL VOLUME 83.9 fl (80-96); MEAN PLT VOLUME 6.9 fl (7.5-11.1); NEUT % 77.1 % (42.8-82.8); PLATELET COUNT 387 K/MM3 (134-434); RBC 3.43 M/mm3 (4.00-5.60); RDW 16.3 % (11.9-15.9); WHITE BLOOD COUNT 9.2 K/mm3 (4.0-10.0)
[2020-06-20 17:16] LABS: ALBUMIN 2.4 g/dl (3.4-5.0); BILIRUBIN,TOTAL 0.3 mg/dL (0.2-1); BLOOD UREA NITROGEN 23.7 mg/dL (7-18); CALCIUM 10.6 mg/dL (8.5-10.1); POTASSIUM 3.1 mmol/L (3.5-5.1); TOT PROT 7.7 g/dl (6.4-8.2)
[2020-06-20] MEDS ORDERED: PT OWN MED DRAWER 7, Y5N ONE (21:06)
[2020-06-20] MEDS: SENNOSIDES 8.6MG TABLET (FP) PO SCH (21:12)
[2020-06-20] MEDS: ATORVASTATIN CA 40 MG TABLET (FP) GT SCH (21:12)
[2020-06-21] MEDS: AMINO ACIDS 4.25%/D5W 1,000 ML IV SCH (04:19)
[2020-06-21] MEDS: FERROUS SO4 300 MG/5 ML ORAL SOLN UNIT DOSE CUPS GT SCH ×3 (05:41→22:12)
[2020-06-21] MEDS ORDERED: ALBUTEROL SO4 2.5/IPRATROPIUM 0.5 INH SOL 3 ML VIAL.NEB. NEB ONE (08:39)
[2020-06-21] MEDS: ALBUTEROL SO4 2.5/IPRATROPIUM 0.5 INH SOL 3 ML VIAL.NEB. NEB SCH ×4 (08:54→20:12)
[2020-06-21 09:11] LABS: BASO % 0.7 % (0-2.0); EOS % 4.5 % (0-4.5); HEMATOCRIT 27.2 % (35.4-49); HEMOGLOBIN 8.4 GM/dL (11.7-16.9); LYMPH % 17.8 % (8-40); MCH 26.1 pg (25.7-33.7); MEAN CELL VOLUME 84.1 fl (80-96); MEAN PLT VOLUME 6.5 fl (7.5-11.1); MONO % 6.7 % (3.8-10.2); NEUT % 70.3 % (42.8-82.8); PLATELET COUNT 352 K/MM3 (134-434); RBC 3.24 M/mm3 (4.00-5.60); RDW 15.9 % (11.9-15.9); WHITE BLOOD COUNT 8.2 K/mm3 (4.0-10.0)
[2020-06-21] MEDS ORDERED: AMINO ACIDS 4.25%/D5W 1,000 ML IV SCH ×2 (09:42→10:30)
[2020-06-21] MEDS ORDERED: PT OWN MED DRAWER 7, Y5N ONE ×2 (09:59→21:21)
[2020-06-21] MEDS ORDERED: EPOETIN ALFA-EPBX 10,000 UNIT/ML VIAL SQ ONE (10:00)
[2020-06-21 10:03] LABS: ALBUMIN 2.2 g/dl (3.4-5.0); BILIRUBIN,TOTAL 0.2 mg/dL (0.2-1); BLOOD UREA NITROGEN 37.6 mg/dL (7-18); CALCIUM 10.3 mg/dL (8.5-10.1); CREATININE 2.5 mg/dL (0.55-1.3)
[2020-06-21 10:09] LABS: POTASSIUM 2.9 mmol/L (3.5-5.1)
[2020-06-21] MEDS: AMINO ACIDS/PROTEIN HYDROLYS 30 ML LIQUID.PKT GT SCH ×2 (10:15→16:57)
[2020-06-21] MEDS: HEPARIN NA (PORCINE) 5,000 UNITS/ML 1ML VIAL SQ SCH ×2 (10:16→22:11)
[2020-06-21] MEDS: METOPROLOL TARTRATE 25 MG TABLET (FP) PO SCH (10:16)
[2020-06-21] MEDS: levETIRAcetam 500 MG/5 ML ORAL SOLUTION (UNIT-DOSE CUPS) GT SCH (10:16)
[2020-06-21] MEDS: FAMOTIDINE 40 MG/5 ML ORAL SUSPENSION NGT SCH ×2 (10:17→22:12)
[2020-06-21] MEDS: VITAMIN B COMP W-C 1 EA TABLET (NEPHRO-VITE) PO SCH (10:17)
[2020-06-21] MEDS: COLLAGENASE CLOSTRIDIUM HIST. 30 GRAMS TUBE TP SCH (10:18)
[2020-06-21] MEDS ORDERED: POTASSIUM CHLORIDE ORAL LIQUID 20 MEQ/15 ML PO ONE (10:38)
[2020-06-21] MEDS: POTASSIUM CHLORIDE 10 MEQ in AMINO ACIDS 4.25%/D5W 1,000 ML IVPB SCH (16:55)
[2020-06-21] MEDS: ATORVASTATIN CA 40 MG TABLET (FP) GT SCH (22:11)
[2020-06-21] MEDS: SENNOSIDES 8.6MG TABLET (FP) PO SCH (22:11)
[2020-06-21] MEDS: CARVEDILOL 3.125 MG TABLET (FP) PO SCH (22:11)
[2020-06-22] MEDS: FERROUS SO4 300 MG/5 ML ORAL SOLN UNIT DOSE CUPS GT SCH ×3 (05:08→21:51)
[2020-06-22] MEDS: ALBUTEROL SO4 2.5/IPRATROPIUM 0.5 INH SOL 3 ML VIAL.NEB. NEB SCH ×4 (08:05→20:54)
[2020-06-22 08:15] LABS: BASO % 0.4 % (0-2.0); EOS % 4.6 % (0-4.5); HEMATOCRIT 27.3 % (35.4-49); HEMOGLOBIN 8.5 GM/dL (11.7-16.9); LYMPH % 18.2 % (8-40); MCH 26.4 pg (25.7-33.7); MCHC 31.3 g/dl (32.0-35.9); MEAN CELL VOLUME 84.4 fl (80-96); MEAN PLT VOLUME 6.8 fl (7.5-11.1); MONO % 6.4 % (3.8-10.2); NEUT % 70.4 % (42.8-82.8); PLATELET COUNT 371 K/MM3 (134-434); RBC 3.23 M/mm3 (4.00-5.60); RDW 16.3 % (11.9-15.9); WHITE BLOOD COUNT 7.9 K/mm3 (4.0-10.0)
[2020-06-22] MEDS: AMINO ACIDS/PROTEIN HYDROLYS 30 ML LIQUID.PKT GT SCH ×2 (08:16→17:56)
[2020-06-22 08:32] LABS: ALBUMIN 2.3 g/dl (3.4-5.0); BILIRUBIN,TOTAL 0.3 mg/dL (0.2-1); BLOOD UREA NITROGEN 53.1 mg/dL (7-18); CALCIUM 11.2 mg/dL (8.5-10.1); CREATININE 3.3 mg/dL (0.55-1.3); POTASSIUM 3.4 mmol/L (3.5-5.1); TOT PROT 7.3 g/dl (6.4-8.2)
[2020-06-22] MEDS ORDERED: PT OWN MED DRAWER 7, Y5N ONE (09:16)
[2020-06-22] MEDS: levETIRAcetam 500 MG/5 ML ORAL SOLUTION (UNIT-DOSE CUPS) GT SCH ×2 (09:18→17:57)
[2020-06-22] MEDS: FAMOTIDINE 40 MG/5 ML ORAL SUSPENSION NGT SCH ×2 (09:18→21:53)
[2020-06-22] MEDS: VITAMIN B COMP W-C 1 EA TABLET (NEPHRO-VITE) PO SCH (09:18)
[2020-06-22] MEDS ORDERED: SODIUM CHLORIDE 250 ML IV PRN (09:21)
[2020-06-22] MEDS: HEPARIN NA (PORCINE) 5,000 UNITS/ML 1ML VIAL SQ SCH ×2 (09:43→21:52)
[2020-06-22] MEDS ORDERED: EPOETIN ALFA-EPBX 10,000 UNIT/ML VIAL SQ ONE (10:00)
[2020-06-22] MEDS: CARVEDILOL 3.125 MG TABLET (FP) PO SCH ×2 (10:15→21:51)
[2020-06-22] MEDS: COLLAGENASE CLOSTRIDIUM HIST. 30 GRAMS TUBE TP SCH (11:50)
[2020-06-22] MEDS ORDERED: POTASSIUM CHLORIDE 10 MEQ in AMINO ACIDS 4.25%/D5W 1,000 ML IVPB SCH (13:02)
[2020-06-22] MEDS: VANCOMYCIN 250 MG/5 ML ORAL SOLUTION PO SCH ×2 (17:56→23:56)
[2020-06-22] MEDS: ATORVASTATIN CA 40 MG TABLET (FP) GT SCH (21:51)
[2020-06-22] MEDS: SENNOSIDES 8.6MG TABLET (FP) PO SCH (21:52)
[2020-06-22] MEDS: POTASSIUM CHLORIDE 10 MEQ in AMINO ACIDS 4.25%/D5W 1,000 ML IVPB SCH (22:48)
[2020-06-23] MEDS: FERROUS SO4 300 MG/5 ML ORAL SOLN UNIT DOSE CUPS GT SCH ×3 (05:13→22:41)
[2020-06-23] MEDS: VANCOMYCIN 250 MG/5 ML ORAL SOLUTION PO SCH ×4 (05:13→23:58)
[2020-06-23] MEDS: ALBUTEROL SO4 2.5/IPRATROPIUM 0.5 INH SOL 3 ML VIAL.NEB. NEB SCH ×3 (07:35→15:40)
[2020-06-23 08:22] LABS: BASO % 0.6 % (0-2.0); EOS % 3.2 % (0-4.5); HEMATOCRIT 28.1 % (35.4-49); LYMPH % 16.6 % (8-40); MCHC 32.1 g/dl (32.0-35.9); MEAN CELL VOLUME 84.2 fl (80-96); MEAN PLT VOLUME 6.5 fl (7.5-11.1); MONO % 7.7 % (3.8-10.2); NEUT % 71.9 % (42.8-82.8); PLATELET COUNT 339 K/MM3 (134-434); RBC 3.34 M/mm3 (4.00-5.60); RDW 15.9 % (11.9-15.9); WHITE BLOOD COUNT 9.2 K/mm3 (4.0-10.0)
[2020-06-23 08:53] LABS: ALBUMIN 2.3 g/dl (3.4-5.0); BILIRUBIN,TOTAL 0.4 mg/dL (0.2-1); BLOOD UREA NITROGEN 32.8 mg/dL (7-18); CALCIUM 10.6 mg/dL (8.5-10.1); CREATININE 2.5 mg/dL (0.55-1.3); POTASSIUM 3.3 mmol/L (3.5-5.1); TOT PROT 7.5 g/dl (6.4-8.2)
[2020-06-23] MEDS: CARVEDILOL 3.125 MG TABLET (FP) PO SCH ×2 (09:43→22:42)
[2020-06-23] MEDS: VITAMIN B COMP W-C 1 EA TABLET (NEPHRO-VITE) PO SCH (09:43)
[2020-06-23] MEDS: AMINO ACIDS/PROTEIN HYDROLYS 30 ML LIQUID.PKT GT SCH ×2 (09:43→17:34)
[2020-06-23] MEDS: HEPARIN NA (PORCINE) 5,000 UNITS/ML 1ML VIAL SQ SCH ×2 (09:43→22:42)
[2020-06-23] MEDS: levETIRAcetam 500 MG/5 ML ORAL SOLUTION (UNIT-DOSE CUPS) GT SCH (09:43)
[2020-06-23] MEDS: FAMOTIDINE 40 MG/5 ML ORAL SUSPENSION NGT SCH ×2 (09:47→22:44)
[2020-06-23] MEDS: COLLAGENASE CLOSTRIDIUM HIST. 30 GRAMS TUBE TP SCH (09:47)
[2020-06-23] MEDS ORDERED: POTASSIUM CHLORIDE ORAL LIQUID 20 MEQ/15 ML NGT ONE (10:31)
[2020-06-23] MEDS: SENNOSIDES 8.6MG TABLET (FP) PO SCH (22:00)
[2020-06-23] MEDS: ATORVASTATIN CA 40 MG TABLET (FP) GT SCH (22:42)
[2020-06-24] MEDS: FERROUS SO4 300 MG/5 ML ORAL SOLN UNIT DOSE CUPS GT SCH ×3 (05:50→21:50)
[2020-06-24] MEDS: VANCOMYCIN 250 MG/5 ML ORAL SOLUTION PO SCH ×4 (05:50→23:59)
[2020-06-24] MEDS: ALBUTEROL SO4 2.5/IPRATROPIUM 0.5 INH SOL 3 ML VIAL.NEB. NEB SCH ×4 (07:45→20:40)
[2020-06-24 08:34] LABS: BASO % 0.3 % (0-2.0); EOS % 4.6 % (0-4.5); HEMATOCRIT 28.5 % (35.4-49); LYMPH % 16.8 % (8-40); MCH 26.6 pg (25.7-33.7); MCHC 31.5 g/dl (32.0-35.9); MEAN CELL VOLUME 84.4 fl (80-96); MEAN PLT VOLUME 6.7 fl (7.5-11.1); MONO % 6.9 % (3.8-10.2); NEUT % 71.4 % (42.8-82.8); PLATELET COUNT 366 K/MM3 (134-434); RBC 3.37 M/mm3 (4.00-5.60); RDW 16.3 % (11.9-15.9); WHITE BLOOD COUNT 7.4 K/mm3 (4.0-10.0)
[2020-06-24 09:01] LABS: ALBUMIN 2.4 g/dl (3.4-5.0); BILIRUBIN,TOTAL 0.3 mg/dL (0.2-1); BLOOD UREA NITROGEN 46.2 mg/dL (7-18); CALCIUM 11.2 mg/dL (8.5-10.1); CREATININE 3.4 mg/dL (0.55-1.3); MAGNESIUM 2.3 mg/dL (1.8-2.4); POTASSIUM 3.5 mmol/L (3.5-5.1); TOT PROT 7.3 g/dl (6.4-8.2)
[2020-06-24] MEDS: AMINO ACIDS/PROTEIN HYDROLYS 30 ML LIQUID.PKT GT SCH ×2 (09:22→17:27)
[2020-06-24] MEDS: levETIRAcetam 500 MG/5 ML ORAL SOLUTION (UNIT-DOSE CUPS) GT SCH (09:22)
[2020-06-24] MEDS: CARVEDILOL 3.125 MG TABLET (FP) PO SCH ×2 (09:22→21:50)
[2020-06-24] MEDS: HEPARIN NA (PORCINE) 5,000 UNITS/ML 1ML VIAL SQ SCH ×2 (09:22→21:51)
[2020-06-24] MEDS: VITAMIN B COMP W-C 1 EA TABLET (NEPHRO-VITE) PO SCH (09:22)
[2020-06-24] MEDS: FAMOTIDINE 40 MG/5 ML ORAL SUSPENSION NGT SCH ×2 (09:23→21:51)
[2020-06-24] MEDS: COLLAGENASE CLOSTRIDIUM HIST. 30 GRAMS TUBE TP SCH (09:24)
[2020-06-24] MEDS ORDERED: SODIUM CHLORIDE 250 ML IV PRN (14:11)
[2020-06-24] MEDS ORDERED: PT OWN MED DRAWER 7, Y5N ONE (21:33)
[2020-06-24] MEDS: ATORVASTATIN CA 40 MG TABLET (FP) GT SCH (21:50)
[2020-06-24] MEDS: SENNOSIDES 8.6MG TABLET (FP) PO SCH (22:02)
[2020-06-25] MEDS: FERROUS SO4 300 MG/5 ML ORAL SOLN UNIT DOSE CUPS GT SCH ×4 (05:13→21:56)
[2020-06-25] MEDS: VANCOMYCIN 250 MG/5 ML ORAL SOLUTION PO SCH ×4 (05:14→23:57)
[2020-06-25] MEDS ORDERED: EPOETIN ALFA 10,000 UNIT/1 ML VIAL IVPUSH ONE (07:00)
[2020-06-25 08:08] LABS: BASO % 0.4 % (0-2.0); EOS % 4.9 % (0-4.5); HEMATOCRIT 30.3 % (35.4-49); HEMOGLOBIN 9.4 GM/dL (11.7-16.9); LYMPH % 20.6 % (8-40); MCH 26.4 pg (25.7-33.7); MCHC 31.1 g/dl (32.0-35.9); MEAN CELL VOLUME 84.8 fl (80-96); MEAN PLT VOLUME 6.8 fl (7.5-11.1); MONO % 8.1 % (3.8-10.2); PLATELET COUNT 363 K/MM3 (134-434); RBC 3.57 M/mm3 (4.00-5.60); RDW 16.3 % (11.9-15.9); WHITE BLOOD COUNT 7.3 K/mm3 (4.0-10.0)
[2020-06-25 08:34] LABS: ALBUMIN 2.3 g/dl (3.4-5.0); BILIRUBIN,TOTAL 0.4 mg/dL (0.2-1); BLOOD UREA NITROGEN 63.7 mg/dL (7-18); CALCIUM 10.8 mg/dL (8.5-10.1); CREATININE 4.2 mg/dL (0.55-1.3); POTASSIUM 3.7 mmol/L (3.5-5.1); TOT PROT 7.4 g/dl (6.4-8.2)
[2020-06-25] MEDS: ALBUTEROL SO4 2.5/IPRATROPIUM 0.5 INH SOL 3 ML VIAL.NEB. NEB SCH ×4 (08:35→20:25)
[2020-06-25] MEDS: HEPARIN NA (PORCINE) 5,000 UNITS/ML 1ML VIAL SQ SCH ×2 (10:46→21:47)
[2020-06-25] MEDS: levETIRAcetam 500 MG/5 ML ORAL SOLUTION (UNIT-DOSE CUPS) GT SCH ×2 (10:46→17:11)
[2020-06-25] MEDS: AMINO ACIDS/PROTEIN HYDROLYS 30 ML LIQUID.PKT GT SCH ×2 (10:46→17:10)
[2020-06-25] MEDS: VITAMIN B COMP W-C 1 EA TABLET (NEPHRO-VITE) PO SCH (10:46)
[2020-06-25] MEDS: COLLAGENASE CLOSTRIDIUM HIST. 30 GRAMS TUBE TP SCH (10:47)
[2020-06-25] MEDS: FAMOTIDINE 40 MG/5 ML ORAL SUSPENSION NGT SCH ×2 (10:47→21:56)
[2020-06-25] MEDS: CARVEDILOL 3.125 MG TABLET (FP) PO SCH ×2 (10:48→21:56)
[2020-06-25] MEDS ORDERED: LIDOCAINE HCL 2% JELLY 10 ML CARTRIDGE ONE (12:31)
[2020-06-25] MEDS ORDERED: PHENYLEPHRINE HCL 10 MG/1 ML SINGLE DOSE VIAL ONE ×2 (12:48→12:50)
[2020-06-25] MEDS ORDERED: ePHEDrine SULFATE 50 MG/1 ML AMPULE ONE ×2 (12:49→12:50)
[2020-06-25] MEDS ORDERED: ALBUTEROL SO4 HFA INHALER IH PRN (19:20)
[2020-06-25] MEDS: SENNOSIDES 8.6MG TABLET (FP) PO SCH (21:48)
[2020-06-25] MEDS: ATORVASTATIN CA 40 MG TABLET (FP) GT SCH (21:56)
[2020-06-26] MEDS: VANCOMYCIN 250 MG/5 ML ORAL SOLUTION PO SCH ×4 (05:57→23:40)
[2020-06-26] MEDS: FERROUS SO4 300 MG/5 ML ORAL SOLN UNIT DOSE CUPS GT SCH ×3 (05:57→22:02)
[2020-06-26] MEDS: HEPARIN NA (PORCINE) 5,000 UNITS/ML 1ML VIAL SQ SCH ×2 (09:45→22:00)
[2020-06-26] MEDS: AMINO ACIDS/PROTEIN HYDROLYS 30 ML LIQUID.PKT GT SCH ×2 (09:46→18:38)
[2020-06-26] MEDS: VITAMIN B COMP W-C 1 EA TABLET (NEPHRO-VITE) PO SCH (09:47)
[2020-06-26] MEDS ORDERED: PT OWN MED DRAWER 7, Y5N ONE (09:51)
[2020-06-26] MEDS: levETIRAcetam 500 MG/5 ML ORAL SOLUTION (UNIT-DOSE CUPS) GT SCH (09:54)
[2020-06-26] MEDS: CARVEDILOL 3.125 MG TABLET (FP) PO SCH ×2 (09:54→21:59)
[2020-06-26] MEDS: FAMOTIDINE 40 MG/5 ML ORAL SUSPENSION NGT SCH ×2 (09:54→21:59)
[2020-06-26] MEDS: ALBUTEROL SO4 2.5/IPRATROPIUM 0.5 INH SOL 3 ML VIAL.NEB. NEB SCH ×4 (10:01→20:55)
[2020-06-26] MEDS: COLLAGENASE CLOSTRIDIUM HIST. 30 GRAMS TUBE TP SCH (14:22)
[2020-06-26] MEDS: ATORVASTATIN CA 40 MG TABLET (FP) GT SCH (21:59)
[2020-06-26] MEDS: SENNOSIDES 8.6MG TABLET (FP) PO SCH (22:00)
[2020-06-27] MEDS: FERROUS SO4 300 MG/5 ML ORAL SOLN UNIT DOSE CUPS GT SCH ×4 (05:19→21:05)
[2020-06-27] MEDS: VANCOMYCIN 250 MG/5 ML ORAL SOLUTION PO SCH ×4 (05:19→23:11)
[2020-06-27] MEDS: ALBUTEROL SO4 2.5/IPRATROPIUM 0.5 INH SOL 3 ML VIAL.NEB. NEB SCH ×4 (08:00→20:00)
[2020-06-27] MEDS ORDERED: SODIUM CHLORIDE 250 ML IV PRN (08:01)
[2020-06-27] MEDS ORDERED: EPOETIN ALFA-EPBX 10,000 UNIT/ML VIAL SQ ONE (08:15)
[2020-06-27] MEDS ORDERED: EPOETIN ALFA-EPBX 10,000 UNIT/ML VIAL IVPUSH ONE (08:15)
[2020-06-27] MEDS: AMINO ACIDS/PROTEIN HYDROLYS 30 ML LIQUID.PKT GT SCH ×2 (08:51→17:09)
[2020-06-27] MEDS: VITAMIN B COMP W-C 1 EA TABLET (NEPHRO-VITE) PO SCH (09:08)
[2020-06-27] MEDS: HEPARIN NA (PORCINE) 5,000 UNITS/ML 1ML VIAL SQ SCH ×2 (09:08→21:03)
[2020-06-27 11:19] LABS: BASO % 0.5 % (0-2.0); EOS % 0.9 % (0-4.5); HEMATOCRIT 28.1 % (35.4-49); HEMOGLOBIN 8.8 GM/dL (11.7-16.9); LYMPH % 15.8 % (8-40); MCH 26.1 pg (25.7-33.7); MCHC 31.2 g/dl (32.0-35.9); MEAN CELL VOLUME 83.8 fl (80-96); MEAN PLT VOLUME 6.9 fl (7.5-11.1); MONO % 6.7 % (3.8-10.2); NEUT % 76.1 % (42.8-82.8); PLATELET COUNT 351 K/MM3 (134-434); RBC 3.35 M/mm3 (4.00-5.60); RDW 16.3 % (11.9-15.9); WHITE BLOOD COUNT 9.4 K/mm3 (4.0-10.0)
[2020-06-27 11:30] LABS: ALBUMIN 2.3 g/dl (3.4-5.0); BLOOD UREA NITROGEN 45.4 mg/dL (7-18); CALCIUM 10.2 mg/dL (8.5-10.1); CREATININE 3.8 mg/dL (0.55-1.3); POTASSIUM 3.3 mmol/L (3.5-5.1); TOT PROT 7.4 g/dl (6.4-8.2)
[2020-06-27] MEDS ORDERED: PT OWN MED DRAWER 7, Y5N ONE (12:21)
[2020-06-27] MEDS: levETIRAcetam 500 MG/5 ML ORAL SOLUTION (UNIT-DOSE CUPS) GT SCH ×2 (12:52→17:09)
[2020-06-27] MEDS: FAMOTIDINE 40 MG/5 ML ORAL SUSPENSION NGT SCH ×2 (12:53→21:06)
[2020-06-27] MEDS: CARVEDILOL 3.125 MG TABLET (FP) PO SCH ×2 (12:53→21:05)
[2020-06-27] MEDS: COLLAGENASE CLOSTRIDIUM HIST. 30 GRAMS TUBE TP SCH (17:08)
[2020-06-27] MEDS: ACETAMINOPHEN 650 MG/20.3 ML ORAL SOLUTION (CUPS) PO PRN (21:03)
[2020-06-27] MEDS: ATORVASTATIN CA 40 MG TABLET (FP) GT SCH (21:05)
[2020-06-27] MEDS: SENNOSIDES 8.6MG TABLET (FP) PO SCH (21:06)
[2020-06-28] MEDS: FERROUS SO4 300 MG/5 ML ORAL SOLN UNIT DOSE CUPS GT SCH ×3 (06:52→23:03)
[2020-06-28] MEDS: VANCOMYCIN 250 MG/5 ML ORAL SOLUTION PO SCH ×4 (06:53→23:04)
[2020-06-28] MEDS: ALBUTEROL SO4 2.5/IPRATROPIUM 0.5 INH SOL 3 ML VIAL.NEB. NEB SCH ×4 (08:15→20:40)
[2020-06-28] MEDS: AMINO ACIDS/PROTEIN HYDROLYS 30 ML LIQUID.PKT GT SCH ×2 (08:24→17:44)
[2020-06-28 08:57] LABS: BASO % 0.4 % (0-2.0); EOS % 0.6 % (0-4.5); HEMATOCRIT 32.2 % (35.4-49); LYMPH % 17.4 % (8-40); MCHC 31.2 g/dl (32.0-35.9); MEAN CELL VOLUME 83.4 fl (80-96); MEAN PLT VOLUME 7.1 fl (7.5-11.1); MONO % 9.1 % (3.8-10.2); NEUT % 72.5 % (42.8-82.8); PLATELET COUNT 390 K/MM3 (134-434); RBC 3.86 M/mm3 (4.00-5.60); RDW 16.2 % (11.9-15.9); WHITE BLOOD COUNT 11.7 K/mm3 (4.0-10.0)
[2020-06-28 09:21] LABS: ALBUMIN 2.4 g/dl (3.4-5.0); BILIRUBIN,TOTAL 0.5 mg/dL (0.2-1); BLOOD UREA NITROGEN 30.5 mg/dL (7-18); CALCIUM 10.8 mg/dL (8.5-10.1); POTASSIUM 3.5 mmol/L (3.5-5.1); TOT PROT 8.1 g/dl (6.4-8.2)
[2020-06-28] MEDS ORDERED: PT OWN MED DRAWER 7, Y5N ONE ×2 (09:46→23:00)
[2020-06-28] MEDS: CARVEDILOL 3.125 MG TABLET (FP) PO SCH ×2 (09:58→23:03)
[2020-06-28] MEDS: HEPARIN NA (PORCINE) 5,000 UNITS/ML 1ML VIAL SQ SCH ×2 (09:58→23:04)
[2020-06-28] MEDS: VITAMIN B COMP W-C 1 EA TABLET (NEPHRO-VITE) PO SCH (09:59)
[2020-06-28] MEDS: FAMOTIDINE 40 MG/5 ML ORAL SUSPENSION NGT SCH ×2 (09:59→23:03)
[2020-06-28] MEDS: levETIRAcetam 500 MG/5 ML ORAL SOLUTION (UNIT-DOSE CUPS) GT SCH (09:59)
[2020-06-28] MEDS: COLLAGENASE CLOSTRIDIUM HIST. 30 GRAMS TUBE TP SCH (13:00)
[2020-06-28] MEDS: ACETAMINOPHEN 650 MG/20.3 ML ORAL SOLUTION (CUPS) PO PRN ×2 (18:19→23:04)
[2020-06-28] MEDS: SENNOSIDES 8.6MG TABLET (FP) PO SCH (23:03)
[2020-06-28] MEDS: ATORVASTATIN CA 40 MG TABLET (FP) GT SCH (23:04)
[2020-06-29] MEDS ORDERED: PT OWN MED DRAWER 7, Y5N ONE ×3 (05:01→21:41)
[2020-06-29] MEDS: VANCOMYCIN 250 MG/5 ML ORAL SOLUTION PO SCH ×3 (05:37→17:17)
[2020-06-29] MEDS: FERROUS SO4 300 MG/5 ML ORAL SOLN UNIT DOSE CUPS GT SCH ×3 (05:37→21:52)
[2020-06-29] MEDS ORDERED: SODIUM CHLORIDE 250 ML IV PRN (07:18)
[2020-06-29] MEDS ORDERED: HEPARIN NA (PORCINE) 5,000 UNITS/ML 1ML VIAL IVPUSH ONE (07:30)
[2020-06-29] MEDS: HEPARIN NA (PORCINE) 5,000 UNITS/ML 1ML VIAL IVPUSH SCH ×3 (07:30→09:30)
[2020-06-29] MEDS: AMINO ACIDS/PROTEIN HYDROLYS 30 ML LIQUID.PKT GT SCH ×2 (07:50→17:18)
[2020-06-29] MEDS ORDERED: EPOETIN ALFA-EPBX 10,000 UNIT/ML VIAL SQ ONE (08:00)
[2020-06-29] MEDS: ALBUTEROL SO4 2.5/IPRATROPIUM 0.5 INH SOL 3 ML VIAL.NEB. NEB SCH ×4 (08:25→20:05)
[2020-06-29 09:04] LABS: BASO % 0.3 % (0-2.0); EOS % 0.9 % (0-4.5); HEMATOCRIT 28.3 % (35.4-49); HEMOGLOBIN 8.9 GM/dL (11.7-16.9); LYMPH % 12.5 % (8-40); MCH 26.7 pg (25.7-33.7); MCHC 31.3 g/dl (32.0-35.9); MEAN CELL VOLUME 85.4 fl (80-96); MEAN PLT VOLUME 7.6 fl (7.5-11.1); MONO % 6.8 % (3.8-10.2); NEUT % 79.5 % (42.8-82.8); PLATELET COUNT 363 K/MM3 (134-434); RBC 3.31 M/mm3 (4.00-5.60); RDW 16.3 % (11.9-15.9); WHITE BLOOD COUNT 14.5 K/mm3 (4.0-10.0)
[2020-06-29 09:31] LABS: ALBUMIN 2.2 g/dl (3.4-5.0); BILIRUBIN,TOTAL 0.6 mg/dL (0.2-1); BLOOD UREA NITROGEN 48.2 mg/dL (7-18); CALCIUM 10.7 mg/dL (8.5-10.1); POTASSIUM 3.2 mmol/L (3.5-5.1); TOT PROT 7.5 g/dl (6.4-8.2)
[2020-06-29] MEDS: VITAMIN B COMP W-C 1 EA TABLET (NEPHRO-VITE) PO SCH (09:55)
[2020-06-29] MEDS: levETIRAcetam 500 MG/5 ML ORAL SOLUTION (UNIT-DOSE CUPS) GT SCH ×2 (09:55→17:18)
[2020-06-29] MEDS: FAMOTIDINE 40 MG/5 ML ORAL SUSPENSION NGT SCH ×2 (09:55→21:53)
[2020-06-29] MEDS: CARVEDILOL 3.125 MG TABLET (FP) PO SCH ×2 (10:58→21:53)
[2020-06-29] MEDS: HEPARIN NA (PORCINE) 5,000 UNITS/ML 1ML VIAL SQ SCH ×2 (11:05→21:53)
[2020-06-29] MEDS ORDERED: POTASSIUM CHLORIDE ORAL LIQUID 20 MEQ/15 ML GT ONE (11:15)
[2020-06-29] MEDS: COLLAGENASE CLOSTRIDIUM HIST. 30 GRAMS TUBE TP SCH (12:00)
[2020-06-29] MEDS: ACETAMINOPHEN 650 MG/20.3 ML ORAL SOLUTION (CUPS) PO PRN ×2 (16:12→21:53)
[2020-06-29] MEDS: SENNOSIDES 8.6MG TABLET (FP) PO SCH (21:53)
[2020-06-29] MEDS: BANATROL PLUS POWDER PACKET PEG SCH (21:53)
[2020-06-29] MEDS: ATORVASTATIN CA 40 MG TABLET (FP) GT SCH (21:53)
[2020-06-30] MEDS: VANCOMYCIN 250 MG/5 ML ORAL SOLUTION PO SCH ×5 (00:41→23:14)
[2020-06-30] MEDS ORDERED: PT OWN MED DRAWER 7, Y5N ONE ×3 (04:45→20:57)
[2020-06-30] MEDS: FERROUS SO4 300 MG/5 ML ORAL SOLN UNIT DOSE CUPS GT SCH ×3 (05:57→21:02)
[2020-06-30] MEDS: BANATROL PLUS POWDER PACKET PEG SCH ×3 (05:58→21:01)
[2020-06-30] MEDS: ACETAMINOPHEN 650 MG/20.3 ML ORAL SOLUTION (CUPS) PO PRN ×5 (05:58→23:30)
[2020-06-30 07:59] LABS: BASO % 0.5 % (0-2.0); HEMATOCRIT 31.2 % (35.4-49); HEMOGLOBIN 9.4 GM/dL (11.7-16.9); LYMPH % 13.9 % (8-40); MCH 25.6 pg (25.7-33.7); MCHC 30.1 g/dl (32.0-35.9); NEUT % 77.6 % (42.8-82.8); PLATELET COUNT 355 K/MM3 (134-434); RBC 3.67 M/mm3 (4.00-5.60); RDW 16.4 % (11.9-15.9); WHITE BLOOD COUNT 12.6 K/mm3 (4.0-10.0)
[2020-06-30] MEDS: ALBUTEROL SO4 2.5/IPRATROPIUM 0.5 INH SOL 3 ML VIAL.NEB. NEB SCH ×4 (08:17→20:58)
[2020-06-30 08:23] LABS: ALBUMIN 2.1 g/dl (3.4-5.0); BILIRUBIN,TOTAL 0.4 mg/dL (0.2-1); BLOOD UREA NITROGEN 39.8 mg/dL (7-18); CALCIUM 11.1 mg/dL (8.5-10.1); CREATININE 3.1 mg/dL (0.55-1.3); PHOSPHOROUS 2.6 mg/dL (2.5-4.9); POTASSIUM 3.6 mmol/L (3.5-5.1); TOT PROT 7.7 g/dl (6.4-8.2)
[2020-06-30] MEDS: FAMOTIDINE 40 MG/5 ML ORAL SUSPENSION NGT SCH ×2 (11:06→21:04)
[2020-06-30] MEDS: AMINO ACIDS/PROTEIN HYDROLYS 30 ML LIQUID.PKT GT SCH ×2 (11:06→17:54)
[2020-06-30] MEDS: VITAMIN B COMP W-C 1 EA TABLET (NEPHRO-VITE) PO SCH (11:07)
[2020-06-30] MEDS: HEPARIN NA (PORCINE) 5,000 UNITS/ML 1ML VIAL SQ SCH ×2 (11:07→21:02)
[2020-06-30] MEDS: levETIRAcetam 500 MG/5 ML ORAL SOLUTION (UNIT-DOSE CUPS) GT SCH (11:07)
[2020-06-30] MEDS: POTASSIUM CHLORIDE TABS 20 MEQ TABLET.ER (FP) PO SCH (11:07)
[2020-06-30] MEDS: CARVEDILOL 3.125 MG TABLET (FP) PO SCH ×2 (11:07→21:02)
[2020-06-30] MEDS: COLLAGENASE CLOSTRIDIUM HIST. 30 GRAMS TUBE TP SCH (14:49)
[2020-06-30] MEDS: SENNOSIDES 8.6MG TABLET (FP) PO SCH (21:02)
[2020-06-30] MEDS: ATORVASTATIN CA 40 MG TABLET (FP) GT SCH (21:04)
[2020-07-01] MEDS: BANATROL PLUS POWDER PACKET PEG SCH ×3 (06:16→22:22)
[2020-07-01] MEDS: VANCOMYCIN 250 MG/5 ML ORAL SOLUTION PO SCH ×4 (06:16→23:13)
[2020-07-01] MEDS: FERROUS SO4 300 MG/5 ML ORAL SOLN UNIT DOSE CUPS GT SCH ×3 (06:16→22:22)
[2020-07-01 08:26] LABS: BASO % 0.8 % (0-2.0); EOS % 1.1 % (0-4.5); HEMATOCRIT 29.7 % (35.4-49); HEMOGLOBIN 9.2 GM/dL (11.7-16.9); LYMPH % 9.7 % (8-40); MCH 26.5 pg (25.7-33.7); MCHC 30.9 g/dl (32.0-35.9); MEAN CELL VOLUME 85.6 fl (80-96); MEAN PLT VOLUME 8.3 fl (7.5-11.1); MONO % 6.3 % (3.8-10.2); NEUT % 82.1 % (42.8-82.8); PLATELET COUNT 306 K/MM3 (134-434); RBC 3.47 M/mm3 (4.00-5.60); RDW 16.4 % (11.9-15.9); WHITE BLOOD COUNT 18.8 K/mm3 (4.0-10.0)
[2020-07-01] MEDS: ALBUTEROL SO4 2.5/IPRATROPIUM 0.5 INH SOL 3 ML VIAL.NEB. NEB SCH ×4 (08:40→20:26)
[2020-07-01 08:58] LABS: BILIRUBIN,TOTAL 0.9 mg/dL (0.2-1); CALCIUM 11.6 mg/dL (8.5-10.1); CREATININE 3.8 mg/dL (0.55-1.3); POTASSIUM 3.5 mmol/L (3.5-5.1); TOT PROT 7.3 g/dl (6.4-8.2)
[2020-07-01 09:00] LABS: BLOOD UREA NITROGEN 66.7 mg/dL (7-18)
[2020-07-01] MEDS ORDERED: INSULIN (NOVOLOG) ASPART 100 UNITS/ML 10ML VIAL ONE (11:17)
[2020-07-01] MEDS ORDERED: PT OWN MED DRAWER 7, Y5N ONE (11:18)
[2020-07-01] MEDS: AMINO ACIDS/PROTEIN HYDROLYS 30 ML LIQUID.PKT GT SCH ×2 (11:30→18:03)
[2020-07-01] MEDS: levETIRAcetam 500 MG/5 ML ORAL SOLUTION (UNIT-DOSE CUPS) GT SCH (11:30)
[2020-07-01] MEDS: POTASSIUM CHLORIDE TABS 20 MEQ TABLET.ER (FP) PO SCH (11:31)
[2020-07-01] MEDS: FAMOTIDINE 40 MG/5 ML ORAL SUSPENSION NGT SCH ×2 (11:31→22:23)
[2020-07-01] MEDS: VITAMIN B COMP W-C 1 EA TABLET (NEPHRO-VITE) PO SCH (11:31)
[2020-07-01] MEDS: CARVEDILOL 3.125 MG TABLET (FP) PO SCH ×2 (11:33→23:12)
[2020-07-01] MEDS: HEPARIN NA (PORCINE) 5,000 UNITS/ML 1ML VIAL SQ SCH ×2 (11:33→22:22)
[2020-07-01] MEDS ORDERED: SODIUM CHLORIDE 250 ML IV PRN (12:33)
[2020-07-01] MEDS: COLLAGENASE CLOSTRIDIUM HIST. 30 GRAMS TUBE TP SCH (15:14)
[2020-07-01] MEDS: ACETAMINOPHEN 650 MG/20.3 ML ORAL SOLUTION (CUPS) PO PRN (15:14)
[2020-07-01] MEDS: ATORVASTATIN CA 40 MG TABLET (FP) GT SCH (22:23)
[2020-07-01] MEDS: SENNOSIDES 8.6MG TABLET (FP) PO SCH (22:23)
[2020-07-02] MEDS: ACETAMINOPHEN 650 MG/20.3 ML ORAL SOLUTION (CUPS) PO PRN (00:58)
[2020-07-02] MEDS: BANATROL PLUS POWDER PACKET PEG SCH ×3 (06:09→23:02)
[2020-07-02] MEDS: VANCOMYCIN 250 MG/5 ML ORAL SOLUTION PO SCH ×4 (06:09→23:04)
[2020-07-02] MEDS: FERROUS SO4 300 MG/5 ML ORAL SOLN UNIT DOSE CUPS GT SCH ×3 (06:09→23:03)
[2020-07-02] MEDS: ALBUTEROL SO4 2.5/IPRATROPIUM 0.5 INH SOL 3 ML VIAL.NEB. NEB SCH ×4 (07:35→20:04)
[2020-07-02] MEDS: AMINO ACIDS/PROTEIN HYDROLYS 30 ML LIQUID.PKT GT SCH ×2 (09:37→17:37)
[2020-07-02] MEDS: CARVEDILOL 3.125 MG TABLET (FP) PO SCH ×2 (10:36→22:58)
[2020-07-02] MEDS: HEPARIN NA (PORCINE) 5,000 UNITS/ML 1ML VIAL SQ SCH ×2 (10:37→22:59)
[2020-07-02 10:49] LABS: BASO % 0.4 % (0-2.0); HEMATOCRIT 27.8 % (35.4-49); HEMOGLOBIN 8.5 GM/dL (11.7-16.9); LYMPH % 9.3 % (8-40); MCH 25.7 pg (25.7-33.7); MCHC 30.5 g/dl (32.0-35.9); MEAN CELL VOLUME 84.5 fl (80-96); MONO % 7.7 % (3.8-10.2); NEUT % 81.6 % (42.8-82.8); PLATELET COUNT 384 K/MM3 (134-434); RBC 3.29 M/mm3 (4.00-5.60); RDW 16.2 % (11.9-15.9); WHITE BLOOD COUNT 18.3 K/mm3 (4.0-10.0)
[2020-07-02] MEDS ORDERED: EPOETIN ALFA-EPBX 10,000 UNIT/ML VIAL IVPUSH ONE (11:00)
[2020-07-02] MEDS ORDERED: SODIUM CHLORIDE 250 ML IV PRN (11:00)
[2020-07-02] MEDS ORDERED: VANCOMYCIN 1 GRAM (PRE-DOCKED) 1,000 MG/250 ML BAG IVPB ONE (11:28)
[2020-07-02 11:32] LABS: BILIRUBIN,TOTAL 0.6 mg/dL (0.2-1); BLOOD UREA NITROGEN 88.9 mg/dL (7-18); CALCIUM 11.4 mg/dL (8.5-10.1); CREATININE 4.3 mg/dL (0.55-1.3); PHOSPHOROUS 3.5 mg/dL (2.5-4.9); POTASSIUM 4.2 mmol/L (3.5-5.1); TOT PROT 7.3 g/dl (6.4-8.2)
[2020-07-02] MEDS ORDERED: MEROPENEM 1 GM VIAL (RESTRICTED TO ID) IVPB ONE (11:47)
[2020-07-02] MEDS ORDERED: DEXTROSE 5%-WATER 100 ML IVPB ONE (11:47)
[2020-07-02] MEDS: levETIRAcetam 500 MG/5 ML ORAL SOLUTION (UNIT-DOSE CUPS) GT SCH ×2 (12:38→17:40)
[2020-07-02] MEDS: POTASSIUM CHLORIDE TABS 20 MEQ TABLET.ER (FP) PO SCH (13:37)
[2020-07-02] MEDS: FAMOTIDINE 40 MG/5 ML ORAL SUSPENSION NGT SCH ×2 (13:38→23:03)
[2020-07-02] MEDS: VITAMIN B COMP W-C 1 EA TABLET (NEPHRO-VITE) PO SCH (14:38)
[2020-07-02] MEDS: MEROPENEM 1 GM in DEXTROSE 5%-WATER 100 ML IVPB SCH (15:39)
[2020-07-02] MEDS: COLLAGENASE CLOSTRIDIUM HIST. 30 GRAMS TUBE TP SCH (17:38)
[2020-07-02] MEDS ORDERED: PT OWN MED DRAWER 7, Y5N ONE ×2 (22:09→22:16)
[2020-07-02] MEDS: ATORVASTATIN CA 40 MG TABLET (FP) GT SCH (23:03)
[2020-07-02] MEDS: SENNOSIDES 8.6MG TABLET (FP) PO SCH (23:03)
[2020-07-03] MEDS: ATORVASTATIN CA 40 MG TABLET (FP) GT SCH ×2 (00:49→21:39)
[2020-07-03] MEDS: FERROUS SO4 300 MG/5 ML ORAL SOLN UNIT DOSE CUPS GT SCH ×4 (00:50→21:39)
[2020-07-03] MEDS: BANATROL PLUS POWDER PACKET PEG SCH ×4 (00:50→21:39)
[2020-07-03] MEDS: FAMOTIDINE 40 MG/5 ML ORAL SUSPENSION NGT SCH ×3 (00:50→21:40)
[2020-07-03] MEDS: VANCOMYCIN 250 MG/5 ML ORAL SOLUTION PO SCH ×4 (00:51→17:22)
[2020-07-03] MEDS ORDERED: PT OWN MED DRAWER 7, Y5N ONE ×3 (07:30→21:36)
[2020-07-03] MEDS: ALBUTEROL SO4 2.5/IPRATROPIUM 0.5 INH SOL 3 ML VIAL.NEB. NEB SCH ×4 (08:15→20:39)
[2020-07-03] MEDS ORDERED: HEPARIN NA (PORCINE) 5,000 UNITS/ML 1ML VIAL IVPUSH ONE (08:30)
[2020-07-03 10:12] LABS: BASO % 0.4 % (0-2.0); EOS % 0.7 % (0-4.5); HEMOGLOBIN 9.1 GM/dL (11.7-16.9); LYMPH % 10.9 % (8-40); MCHC 31.3 g/dl (32.0-35.9); MEAN CELL VOLUME 86.1 fl (80-96); MEAN PLT VOLUME 7.8 fl (7.5-11.1); MONO % 9.3 % (3.8-10.2); NEUT % 78.7 % (42.8-82.8); PLATELET COUNT 314 K/MM3 (134-434); RBC 3.37 M/mm3 (4.00-5.60); RDW 16.4 % (11.9-15.9); WHITE BLOOD COUNT 16.6 K/mm3 (4.0-10.0)
[2020-07-03 10:46] LABS: BILIRUBIN,TOTAL 0.6 mg/dL (0.2-1); BLOOD UREA NITROGEN 69.5 mg/dL (7-18); CALCIUM 11.8 mg/dL (8.5-10.1); CREATININE 3.7 mg/dL (0.55-1.3); POTASSIUM 4.2 mmol/L (3.5-5.1); TOT PROT 7.7 g/dl (6.4-8.2)
[2020-07-03] MEDS: POTASSIUM CHLORIDE TABS 20 MEQ TABLET.ER (FP) PO SCH (11:56)
[2020-07-03] MEDS: levETIRAcetam 500 MG/5 ML ORAL SOLUTION (UNIT-DOSE CUPS) GT SCH (11:56)
[2020-07-03] MEDS: CARVEDILOL 3.125 MG TABLET (FP) PO SCH ×2 (11:56→21:58)
[2020-07-03] MEDS: VITAMIN B COMP W-C 1 EA TABLET (NEPHRO-VITE) PO SCH (11:56)
[2020-07-03] MEDS: AMINO ACIDS/PROTEIN HYDROLYS 30 ML LIQUID.PKT GT SCH ×2 (11:56→16:52)
[2020-07-03] MEDS: HEPARIN NA (PORCINE) 5,000 UNITS/ML 1ML VIAL SQ SCH ×2 (11:56→21:39)
[2020-07-03] MEDS ORDERED: ONDANSETRON 4 MG/2 ML VIAL IVPB PRN (12:17)
[2020-07-03] MEDS: COLLAGENASE CLOSTRIDIUM HIST. 30 GRAMS TUBE TP SCH ×2 (16:37→16:38)
[2020-07-03] MEDS: MEROPENEM 1 GM in DEXTROSE 5%-WATER 100 ML IVPB SCH ×2 (16:38→18:53)
[2020-07-03] MEDS ORDERED: MEROPENEM 1 GM VIAL (RESTRICTED TO ID) IVPB ONE (18:49)
[2020-07-03] MEDS ORDERED: DEXTROSE 5%-WATER 100 ML IVPB ONE (18:49)
[2020-07-03] MEDS: SENNOSIDES 8.6MG TABLET (FP) PO SCH (21:40)
[2020-07-04] MEDS: VANCOMYCIN 250 MG/5 ML ORAL SOLUTION PO SCH ×4 (00:32→17:54)
[2020-07-04] MEDS: BANATROL PLUS POWDER PACKET PEG SCH ×3 (06:25→23:17)
[2020-07-04] MEDS: FERROUS SO4 300 MG/5 ML ORAL SOLN UNIT DOSE CUPS GT SCH ×3 (06:25→22:41)
[2020-07-04] MEDS: ALBUTEROL SO4 2.5/IPRATROPIUM 0.5 INH SOL 3 ML VIAL.NEB. NEB SCH ×2 (07:45→12:12)
[2020-07-04] MEDS ORDERED: SODIUM CHLORIDE 250 ML IV PRN (08:30)
[2020-07-04] MEDS ORDERED: EPOETIN ALFA-EPBX 10,000 UNIT/ML VIAL SQ ONE (09:00)
[2020-07-04 09:11] LABS: BASO % 0.5 % (0-2.0); EOS % 1.3 % (0-4.5); HEMATOCRIT 26.4 % (35.4-49); HEMOGLOBIN 8.1 GM/dL (11.7-16.9); LYMPH % 10.6 % (8-40); MCH 25.7 pg (25.7-33.7); MCHC 30.7 g/dl (32.0-35.9); MEAN CELL VOLUME 83.7 fl (80-96); MONO % 8.2 % (3.8-10.2); NEUT % 79.4 % (42.8-82.8); PLATELET COUNT 368 K/MM3 (134-434); RBC 3.15 M/mm3 (4.00-5.60); RDW 16.1 % (11.9-15.9); WHITE BLOOD COUNT 12.7 K/mm3 (4.0-10.0)
[2020-07-04 09:40] LABS: POTASSIUM 4.2 mmol/L (3.5-5.1)
[2020-07-04 09:53] LABS: BILIRUBIN,TOTAL 0.4 mg/dL (0.2-1); BLOOD UREA NITROGEN 91.6 mg/dL (7-18); CALCIUM 11.7 mg/dL (8.5-10.1); CREATININE 4.2 mg/dL (0.55-1.3); TOT PROT 7.4 g/dl (6.4-8.2)
[2020-07-04] MEDS ORDERED: MEROPENEM 1 GM VIAL (RESTRICTED TO ID) IVPB ONE (12:29)
[2020-07-04] MEDS ORDERED: PT OWN MED DRAWER 7, Y5N ONE ×3 (12:29→22:22)
[2020-07-04] MEDS ORDERED: DEXTROSE 5%-WATER 100 ML IVPB ONE (12:29)
[2020-07-04] MEDS: levETIRAcetam 500 MG/5 ML ORAL SOLUTION (UNIT-DOSE CUPS) GT SCH ×2 (12:53→17:53)
[2020-07-04] MEDS: CARVEDILOL 3.125 MG TABLET (FP) PO SCH ×2 (12:53→22:41)
[2020-07-04] MEDS: AMINO ACIDS/PROTEIN HYDROLYS 30 ML LIQUID.PKT GT SCH ×2 (12:53→17:52)
[2020-07-04] MEDS: HEPARIN NA (PORCINE) 5,000 UNITS/ML 1ML VIAL SQ SCH ×2 (12:54→22:43)
[2020-07-04] MEDS: VITAMIN B COMP W-C 1 EA TABLET (NEPHRO-VITE) PO SCH (12:55)
[2020-07-04] MEDS: FAMOTIDINE 40 MG/5 ML ORAL SUSPENSION NGT SCH ×2 (12:56→22:44)
[2020-07-04] MEDS: COLLAGENASE CLOSTRIDIUM HIST. 30 GRAMS TUBE TP SCH (12:56)
[2020-07-04] MEDS: MEROPENEM 1 GM in DEXTROSE 5%-WATER 100 ML IVPB SCH (12:57)
[2020-07-04] MEDS: POTASSIUM CHLORIDE TABS 20 MEQ TABLET.ER (FP) PO SCH (14:46)
[2020-07-04] MEDS: POTASSIUM CHLORIDE ORAL LIQUID 20 MEQ/15 ML PO SCH (14:46)
[2020-07-04] MEDS ORDERED: SODIUM CHLORIDE 250 ML IV STA (15:24)
[2020-07-04] MEDS ORDERED: GENTAMICIN INJECTION 100 MG in DEXTROSE 5%-WATER - 100 ML IVPB ONE (16:00)
[2020-07-04] MEDS: ACETAMINOPHEN 650 MG/20.3 ML ORAL SOLUTION (CUPS) PO PRN (22:41)
[2020-07-04] MEDS: ATORVASTATIN CA 40 MG TABLET (FP) GT SCH (22:43)
[2020-07-04] MEDS: SENNOSIDES 8.6MG TABLET (FP) PO SCH (22:44)
[2020-07-05] MEDS: VANCOMYCIN 250 MG/5 ML ORAL SOLUTION PO SCH ×5 (00:29→23:10)
[2020-07-05] MEDS ORDERED: SODIUM CHLORIDE 250 ML IV STA (02:50)
[2020-07-05] MEDS: BANATROL PLUS POWDER PACKET PEG SCH ×3 (05:06→21:42)
[2020-07-05] MEDS: FERROUS SO4 300 MG/5 ML ORAL SOLN UNIT DOSE CUPS GT SCH ×3 (05:06→21:42)
[2020-07-05 08:07] LABS: BILIRUBIN,TOTAL 0.6 mg/dL (0.2-1); CALCIUM 10.9 mg/dL (8.5-10.1); POTASSIUM 4.1 mmol/L (3.5-5.1); TOT PROT 7.5 g/dl (6.4-8.2)
[2020-07-05 08:11] LABS: BLOOD UREA NITROGEN 58.6 mg/dL (7-18)
[2020-07-05 08:14] LABS: BASO % 0.4 % (0-2.0); EOS % 1.1 % (0-4.5); HEMATOCRIT 26.9 % (35.4-49); HEMOGLOBIN 8.4 GM/dL (11.7-16.9); MCH 26.6 pg (25.7-33.7); MCHC 31.3 g/dl (32.0-35.9); MEAN CELL VOLUME 85.1 fl (80-96); MEAN PLT VOLUME 8.2 fl (7.5-11.1); NEUT % 74.5 % (42.8-82.8); PLATELET COUNT 373 K/MM3 (134-434); RBC 3.16 M/mm3 (4.00-5.60); RDW 16.8 % (11.9-15.9); WHITE BLOOD COUNT 12.2 K/mm3 (4.0-10.0)
[2020-07-05] MEDS ORDERED: DEXTROSE 5%-WATER 100 ML IVPB ONE (11:45)
[2020-07-05] MEDS ORDERED: MEROPENEM 1 GM VIAL (RESTRICTED TO ID) IVPB ONE (11:45)
[2020-07-05] MEDS ORDERED: PT OWN MED DRAWER 7, Y5N ONE ×2 (11:46→21:41)
[2020-07-05] MEDS: MEROPENEM 1 GM in DEXTROSE 5%-WATER 100 ML IVPB SCH (11:57)
[2020-07-05] MEDS: AMINO ACIDS/PROTEIN HYDROLYS 30 ML LIQUID.PKT GT SCH ×2 (11:57→19:37)
[2020-07-05] MEDS: CARVEDILOL 3.125 MG TABLET (FP) PO SCH ×3 (11:57→22:09)
[2020-07-05] MEDS: levETIRAcetam 500 MG/5 ML ORAL SOLUTION (UNIT-DOSE CUPS) GT SCH (11:58)
[2020-07-05] MEDS: VITAMIN B COMP W-C 1 EA TABLET (NEPHRO-VITE) PO SCH (11:58)
[2020-07-05] MEDS: HEPARIN NA (PORCINE) 5,000 UNITS/ML 1ML VIAL SQ SCH ×2 (11:58→21:42)
[2020-07-05] MEDS: FAMOTIDINE 40 MG/5 ML ORAL SUSPENSION NGT SCH ×2 (11:59→21:43)
[2020-07-05] MEDS: POTASSIUM CHLORIDE ORAL LIQUID 20 MEQ/15 ML PO SCH (11:59)
[2020-07-05] MEDS: COLLAGENASE CLOSTRIDIUM HIST. 30 GRAMS TUBE TP SCH (12:00)
[2020-07-05] MEDS: ACETAMINOPHEN 650 MG/20.3 ML ORAL SOLUTION (CUPS) PO PRN (15:35)
[2020-07-05] MEDS ORDERED: PIPERACILLIN/TAZOBACTAM 2.25 GM VIAL IVPB ONE (18:48)
[2020-07-05] MEDS ORDERED: DEXTROSE 5%-WATER - 50 ML IVPB ONE (18:48)
[2020-07-05] MEDS: PIPERACILLIN/TAZOB 2.25 GM 2.25 GM in DEXTROSE 5%-WATER - 50 ML IVPB SCH (19:37)
[2020-07-05] MEDS: ATORVASTATIN CA 40 MG TABLET (FP) GT SCH (21:42)
[2020-07-05] MEDS: SENNOSIDES 8.6MG TABLET (FP) PO SCH (21:43)
[2020-07-06] MEDS ORDERED: DEXTROSE 5%-WATER - 50 ML IVPB ONE ×3 (01:37→17:52)
[2020-07-06] MEDS ORDERED: PIPERACILLIN/TAZOBACTAM 2.25 GM VIAL IVPB ONE ×3 (01:37→17:51)
[2020-07-06] MEDS: PIPERACILLIN/TAZOB 2.25 GM 2.25 GM in DEXTROSE 5%-WATER - 50 ML IVPB SCH ×3 (01:57→17:48)
[2020-07-06] MEDS: VANCOMYCIN 250 MG/5 ML ORAL SOLUTION PO SCH ×3 (05:41→17:48)
[2020-07-06] MEDS: FERROUS SO4 300 MG/5 ML ORAL SOLN UNIT DOSE CUPS GT SCH ×3 (05:41→21:58)
[2020-07-06] MEDS: BANATROL PLUS POWDER PACKET PEG SCH ×3 (05:41→21:59)
[2020-07-06] MEDS ORDERED: SODIUM CHLORIDE 250 ML IV PRN (07:26)
[2020-07-06] MEDS ORDERED: EPOETIN ALFA 10,000 UNIT/1 ML VIAL SQ ONE (08:00)
[2020-07-06] MEDS ORDERED: HEPARIN NA (PORCINE) 5,000 UNITS/ML 1ML VIAL IVPUSH ONE (09:00)
[2020-07-06 09:03] LABS: BASO % 0.2 % (0-2.0); HEMATOCRIT 27.1 % (35.4-49); HEMOGLOBIN 8.3 GM/dL (11.7-16.9); LYMPH % 11.8 % (8-40); MCH 26.1 pg (25.7-33.7); MCHC 30.8 g/dl (32.0-35.9); MEAN CELL VOLUME 84.7 fl (80-96); MEAN PLT VOLUME 7.8 fl (7.5-11.1); MONO % 6.4 % (3.8-10.2); NEUT % 79.6 % (42.8-82.8); PLATELET COUNT 408 K/MM3 (134-434); RBC 3.19 M/mm3 (4.00-5.60); RDW 16.5 % (11.9-15.9); WHITE BLOOD COUNT 13.9 K/mm3 (4.0-10.0)
[2020-07-06 09:33] LABS: ALBUMIN 1.9 g/dl (3.4-5.0); CALCIUM 11.4 mg/dL (8.5-10.1); CREATININE 3.8 mg/dL (0.55-1.3); POTASSIUM 4.2 mmol/L (3.5-5.1); TOT PROT 7.1 g/dl (6.4-8.2)
[2020-07-06 09:34] LABS: BLOOD UREA NITROGEN 85.1 mg/dL (7-18)
[2020-07-06] MEDS: AMINO ACIDS/PROTEIN HYDROLYS 30 ML LIQUID.PKT GT SCH ×2 (12:30→17:42)
[2020-07-06] MEDS: VITAMIN B COMP W-C 1 EA TABLET (NEPHRO-VITE) PO SCH (12:31)
[2020-07-06] MEDS: HEPARIN NA (PORCINE) 5,000 UNITS/ML 1ML VIAL SQ SCH ×2 (12:31→21:58)
[2020-07-06] MEDS: CARVEDILOL 3.125 MG TABLET (FP) PO SCH ×2 (12:31→21:59)
[2020-07-06] MEDS: levETIRAcetam 500 MG/5 ML ORAL SOLUTION (UNIT-DOSE CUPS) GT SCH ×2 (12:31→17:42)
[2020-07-06] MEDS: FAMOTIDINE 40 MG/5 ML ORAL SUSPENSION NGT SCH ×2 (12:32→21:59)
[2020-07-06] MEDS: POTASSIUM CHLORIDE ORAL LIQUID 20 MEQ/15 ML PO SCH (12:32)
[2020-07-06] MEDS: COLLAGENASE CLOSTRIDIUM HIST. 30 GRAMS TUBE TP SCH (17:41)
[2020-07-06] MEDS ORDERED: PT OWN MED DRAWER 7, Y5N ONE ×2 (21:43→22:29)
[2020-07-06] MEDS: ATORVASTATIN CA 40 MG TABLET (FP) GT SCH (21:58)
[2020-07-06] MEDS: SENNOSIDES 8.6MG TABLET (FP) PO SCH (21:58)
[2020-07-07] MEDS: VANCOMYCIN 250 MG/5 ML ORAL SOLUTION PO SCH ×4 (00:27→17:29)
[2020-07-07] MEDS ORDERED: DEXTROSE 5%-WATER - 50 ML IVPB ONE ×3 (00:56→17:14)
[2020-07-07] MEDS ORDERED: PIPERACILLIN/TAZOBACTAM 2.25 GM VIAL IVPB ONE ×3 (00:56→17:14)
[2020-07-07] MEDS: PIPERACILLIN/TAZOB 2.25 GM 2.25 GM in DEXTROSE 5%-WATER - 50 ML IVPB SCH ×3 (01:14→17:28)
[2020-07-07] MEDS: FERROUS SO4 300 MG/5 ML ORAL SOLN UNIT DOSE CUPS GT SCH ×3 (05:00→22:30)
[2020-07-07] MEDS: BANATROL PLUS POWDER PACKET PEG SCH ×3 (05:00→22:28)
[2020-07-07] MEDS: ACETAMINOPHEN 650 MG/20.3 ML ORAL SOLUTION (CUPS) PO PRN (05:03)
[2020-07-07] MEDS ORDERED: PT OWN MED DRAWER 7, Y5N ONE (09:00)
[2020-07-07] MEDS: VITAMIN B COMP W-C 1 EA TABLET (NEPHRO-VITE) PO SCH (09:04)
[2020-07-07] MEDS: levETIRAcetam 500 MG/5 ML ORAL SOLUTION (UNIT-DOSE CUPS) GT SCH (09:04)
[2020-07-07] MEDS: POTASSIUM CHLORIDE ORAL LIQUID 20 MEQ/15 ML PO SCH (09:04)
[2020-07-07] MEDS: CARVEDILOL 3.125 MG TABLET (FP) PO SCH ×2 (09:05→22:33)
[2020-07-07] MEDS: AMINO ACIDS/PROTEIN HYDROLYS 30 ML LIQUID.PKT GT SCH ×2 (09:05→17:28)
[2020-07-07] MEDS: FAMOTIDINE 40 MG/5 ML ORAL SUSPENSION NGT SCH ×2 (09:05→22:33)
[2020-07-07] MEDS: HEPARIN NA (PORCINE) 5,000 UNITS/ML 1ML VIAL SQ SCH ×2 (09:05→22:33)
[2020-07-07] MEDS: COLLAGENASE CLOSTRIDIUM HIST. 30 GRAMS TUBE TP SCH (09:08)
[2020-07-07] MEDS: ATORVASTATIN CA 40 MG TABLET (FP) GT SCH (22:33)
[2020-07-07] MEDS: SENNOSIDES 8.6MG TABLET (FP) PO SCH (22:34)
[2020-07-08] MEDS ORDERED: DEXTROSE 5%-WATER - 50 ML IVPB ONE ×3 (02:15→16:59)
[2020-07-08] MEDS ORDERED: PIPERACILLIN/TAZOBACTAM 2.25 GM VIAL IVPB ONE ×3 (02:15→16:59)
[2020-07-08] MEDS: PIPERACILLIN/TAZOB 2.25 GM 2.25 GM in DEXTROSE 5%-WATER - 50 ML IVPB SCH ×3 (02:29→17:12)
[2020-07-08] MEDS: BANATROL PLUS POWDER PACKET PEG SCH ×3 (05:25→23:07)
[2020-07-08] MEDS: FERROUS SO4 300 MG/5 ML ORAL SOLN UNIT DOSE CUPS GT SCH ×3 (05:26→23:07)
[2020-07-08] MEDS: VANCOMYCIN 250 MG/5 ML ORAL SOLUTION PO SCH ×3 (05:26→13:52)
[2020-07-08 09:03] LABS: BASO % 0.4 % (0-2.0); EOS % 1.9 % (0-4.5); HEMATOCRIT 27.5 % (35.4-49); HEMOGLOBIN 8.7 GM/dL (11.7-16.9); LYMPH % 11.5 % (8-40); MCH 26.8 pg (25.7-33.7); MCHC 31.7 g/dl (32.0-35.9); MEAN CELL VOLUME 84.7 fl (80-96); MEAN PLT VOLUME 7.7 fl (7.5-11.1); MONO % 5.1 % (3.8-10.2); NEUT % 81.1 % (42.8-82.8); PLATELET COUNT 426 K/MM3 (134-434); RBC 3.24 M/mm3 (4.00-5.60); RDW 16.6 % (11.9-15.9); WHITE BLOOD COUNT 14.2 K/mm3 (4.0-10.0)
[2020-07-08 09:18] LABS: POTASSIUM 4.3 mmol/L (3.5-5.1)
[2020-07-08 09:23] LABS: ALBUMIN 1.9 g/dl (3.4-5.0); CALCIUM 10.6 mg/dL (8.5-10.1)
[2020-07-08 09:24] LABS: BLOOD UREA NITROGEN 82.8 mg/dL (7-18)
[2020-07-08 09:27] LABS: CREATININE 3.7 mg/dL (0.55-1.3)
[2020-07-08 09:28] LABS: BILIRUBIN,TOTAL 0.4 mg/dL (0.2-1); TOT PROT 7.5 g/dl (6.4-8.2)
[2020-07-08 09:29] LABS: PHOSPHOROUS 5.3 mg/dL (2.5-4.9)
[2020-07-08] MEDS: AMINO ACIDS/PROTEIN HYDROLYS 30 ML LIQUID.PKT GT SCH ×2 (09:49→17:12)
[2020-07-08] MEDS: CARVEDILOL 3.125 MG TABLET (FP) PO SCH ×2 (09:49→23:08)
[2020-07-08] MEDS: levETIRAcetam 500 MG/5 ML ORAL SOLUTION (UNIT-DOSE CUPS) GT SCH (09:49)
[2020-07-08] MEDS: HEPARIN NA (PORCINE) 5,000 UNITS/ML 1ML VIAL SQ SCH (09:49)
[2020-07-08] MEDS: COLLAGENASE CLOSTRIDIUM HIST. 30 GRAMS TUBE TP SCH (09:50)
[2020-07-08] MEDS: FAMOTIDINE 40 MG/5 ML ORAL SUSPENSION NGT SCH ×2 (09:50→23:09)
[2020-07-08] MEDS: VITAMIN B COMP W-C 1 EA TABLET (NEPHRO-VITE) PO SCH (09:50)
[2020-07-08] MEDS ORDERED: PT OWN MED DRAWER 7, Y5N ONE (22:05)
[2020-07-08] MEDS: ATORVASTATIN CA 40 MG TABLET (FP) GT SCH (23:08)
[2020-07-08] MEDS: SENNOSIDES 8.6MG TABLET (FP) PO SCH (23:08)
[2020-07-09] MEDS ORDERED: DEXTROSE 5%-WATER - 50 ML IVPB ONE ×3 (02:11→16:39)
[2020-07-09] MEDS ORDERED: PIPERACILLIN/TAZOBACTAM 2.25 GM VIAL IVPB ONE ×3 (02:11→16:39)
[2020-07-09] MEDS: PIPERACILLIN/TAZOB 2.25 GM 2.25 GM in DEXTROSE 5%-WATER - 50 ML IVPB SCH ×3 (02:50→17:14)
[2020-07-09] MEDS: ACETAMINOPHEN 650 MG/20.3 ML ORAL SOLUTION (CUPS) PO PRN (03:11)
[2020-07-09] MEDS: BANATROL PLUS POWDER PACKET PEG SCH ×3 (05:46→22:28)
[2020-07-09] MEDS: FERROUS SO4 300 MG/5 ML ORAL SOLN UNIT DOSE CUPS GT SCH ×3 (05:46→22:29)
[2020-07-09] MEDS ORDERED: EPOETIN ALFA-EPBX 10,000 UNIT/ML VIAL IVPUSH ONE (08:15)
[2020-07-09 09:07] LABS: HEMATOCRIT 23.8 % (35.4-49); HEMOGLOBIN 7.4 GM/dL (11.7-16.9); MCH 26.2 pg (25.7-33.7); MCHC 31.2 g/dl (32.0-35.9); MEAN PLT VOLUME 7.6 fl (7.5-11.1); PLATELET COUNT 396 K/MM3 (134-434); RBC 2.83 M/mm3 (4.00-5.60); RDW 16.6 % (11.9-15.9); WHITE BLOOD COUNT 15.4 K/mm3 (4.0-10.0)
[2020-07-09 09:40] LABS: POTASSIUM 4.3 mmol/L (3.5-5.1)
[2020-07-09 09:49] LABS: ALBUMIN 1.7 g/dl (3.4-5.0); BLOOD UREA NITROGEN 98.7 mg/dL (7-18); CALCIUM 10.1 mg/dL (8.5-10.1)
[2020-07-09 09:52] LABS: CREATININE 4.3 mg/dL (0.55-1.3)
[2020-07-09 09:53] LABS: BILIRUBIN,TOTAL 0.4 mg/dL (0.2-1)
[2020-07-09 09:54] LABS: TOT PROT 6.8 g/dl (6.4-8.2)
[2020-07-09] MEDS ORDERED: PT OWN MED DRAWER 7, Y5N ONE ×2 (11:40→22:26)
[2020-07-09] MEDS: levETIRAcetam 500 MG/5 ML ORAL SOLUTION (UNIT-DOSE CUPS) GT SCH ×2 (11:42→22:27)
[2020-07-09] MEDS: AMINO ACIDS/PROTEIN HYDROLYS 30 ML LIQUID.PKT GT SCH ×2 (11:43→17:32)
[2020-07-09] MEDS: CARVEDILOL 3.125 MG TABLET (FP) PO SCH ×2 (11:43→22:28)
[2020-07-09] MEDS: FAMOTIDINE 40 MG/5 ML ORAL SUSPENSION NGT SCH ×2 (11:44→22:29)
[2020-07-09] MEDS: VITAMIN B COMP W-C 1 EA TABLET (NEPHRO-VITE) PO SCH (11:44)
[2020-07-09] MEDS: COLLAGENASE CLOSTRIDIUM HIST. 30 GRAMS TUBE TP SCH (12:30)
[2020-07-09] MEDS: SENNOSIDES 8.6MG TABLET (FP) PO SCH (22:29)
[2020-07-09] MEDS: ATORVASTATIN CA 40 MG TABLET (FP) GT SCH (22:29)
[2020-07-10] MEDS ORDERED: DEXTROSE 5%-WATER - 50 ML IVPB ONE ×3 (01:48→17:37)
[2020-07-10] MEDS ORDERED: PIPERACILLIN/TAZOBACTAM 2.25 GM VIAL IVPB ONE ×3 (01:48→17:37)
[2020-07-10] MEDS: PIPERACILLIN/TAZOB 2.25 GM 2.25 GM in DEXTROSE 5%-WATER - 50 ML IVPB SCH ×3 (02:23→18:28)
[2020-07-10] MEDS ORDERED: PT OWN MED DRAWER 7, Y5N ONE ×4 (05:05→20:56)
[2020-07-10] MEDS: FERROUS SO4 300 MG/5 ML ORAL SOLN UNIT DOSE CUPS GT SCH ×3 (05:12→21:07)
[2020-07-10] MEDS: BANATROL PLUS POWDER PACKET PEG SCH ×3 (05:12→21:07)
[2020-07-10] MEDS: ACETAMINOPHEN 650 MG/20.3 ML ORAL SOLUTION (CUPS) PO PRN (06:58)
[2020-07-10] MEDS: CARVEDILOL 3.125 MG TABLET (FP) PO SCH ×2 (10:03→21:07)
[2020-07-10] MEDS: VITAMIN B COMP W-C 1 EA TABLET (NEPHRO-VITE) PO SCH (10:03)
[2020-07-10] MEDS: AMINO ACIDS/PROTEIN HYDROLYS 30 ML LIQUID.PKT GT SCH ×2 (10:03→18:28)
[2020-07-10] MEDS: levETIRAcetam 500 MG/5 ML ORAL SOLUTION (UNIT-DOSE CUPS) GT SCH (10:03)
[2020-07-10] MEDS: FAMOTIDINE 40 MG/5 ML ORAL SUSPENSION NGT SCH ×2 (10:04→21:07)
[2020-07-10] MEDS: COLLAGENASE CLOSTRIDIUM HIST. 30 GRAMS TUBE TP SCH (10:04)
[2020-07-10 16:36] LABS: HEMATOCRIT 27.1 % (35.4-49); HEMOGLOBIN 8.2 GM/dL (11.7-16.9); MCH 25.5 pg (25.7-33.7); MCHC 30.1 g/dl (32.0-35.9); MEAN CELL VOLUME 84.8 fl (80-96); MEAN PLT VOLUME 7.6 fl (7.5-11.1); PLATELET COUNT 411 K/MM3 (134-434); RDW 17.4 % (11.9-15.9); WHITE BLOOD COUNT 16.2 K/mm3 (4.0-10.0)
[2020-07-10] MEDS ORDERED: VANCOMYCIN 1 GRAM (PRE-DOCKED) 1,000 MG/250 ML BAG IVPB ONE (16:38)
[2020-07-10 17:00] LABS: POTASSIUM 3.6 mmol/L (3.5-5.1)
[2020-07-10 17:02] LABS: CALCIUM 10.4 mg/dL (8.5-10.1)
[2020-07-10 17:03] LABS: ALBUMIN 1.7 g/dl (3.4-5.0)
[2020-07-10 17:06] LABS: CREATININE 3.1 mg/dL (0.55-1.3)
[2020-07-10 17:07] LABS: BILIRUBIN,TOTAL 0.3 mg/dL (0.2-1); TOT PROT 7.2 g/dl (6.4-8.2)
[2020-07-10 17:15] LABS: BLOOD UREA NITROGEN 61.9 mg/dL (7-18)
[2020-07-10] MEDS: IBUPROFEN 800 MG/8 ML IJ IVPB PRN (21:05)
[2020-07-10] MEDS: SENNOSIDES 8.6MG TABLET (FP) PO SCH (21:06)
[2020-07-11] MEDS ORDERED: DEXTROSE 5%-WATER - 50 ML IVPB ONE ×3 (00:58→17:45)
[2020-07-11] MEDS ORDERED: PIPERACILLIN/TAZOBACTAM 2.25 GM VIAL IVPB ONE ×3 (00:58→17:45)
[2020-07-11] MEDS: PIPERACILLIN/TAZOB 2.25 GM 2.25 GM in DEXTROSE 5%-WATER - 50 ML IVPB SCH ×3 (01:41→17:59)
[2020-07-11] MEDS ORDERED: PT OWN MED DRAWER 7, Y5N ONE ×4 (05:21→20:54)
[2020-07-11] MEDS: FERROUS SO4 300 MG/5 ML ORAL SOLN UNIT DOSE CUPS GT SCH ×3 (06:00→21:08)
[2020-07-11] MEDS: BANATROL PLUS POWDER PACKET PEG SCH ×3 (06:01→21:08)
[2020-07-11] MEDS ORDERED: SODIUM CHLORIDE 250 ML IV PRN (07:21)
[2020-07-11] MEDS ORDERED: EPOETIN ALFA-EPBX 10,000 UNIT/ML VIAL SQ ONE (07:30)
[2020-07-11] MEDS ORDERED: HEPARIN NA (PORCINE) 5,000 UNITS/ML 1ML VIAL IVPUSH ONE (07:30)
[2020-07-11] MEDS: CARVEDILOL 3.125 MG TABLET (FP) PO SCH ×2 (12:18→21:08)
[2020-07-11] MEDS: AMINO ACIDS/PROTEIN HYDROLYS 30 ML LIQUID.PKT GT SCH ×2 (12:19→17:59)
[2020-07-11] MEDS: levETIRAcetam 500 MG/5 ML ORAL SOLUTION (UNIT-DOSE CUPS) GT SCH ×2 (12:19→18:00)
[2020-07-11] MEDS: VITAMIN B COMP W-C 1 EA TABLET (NEPHRO-VITE) PO SCH (12:20)
[2020-07-11] MEDS: FAMOTIDINE 40 MG/5 ML ORAL SUSPENSION NGT SCH ×2 (12:20→21:08)
[2020-07-11] MEDS: COLLAGENASE CLOSTRIDIUM HIST. 30 GRAMS TUBE TP SCH (12:21)
[2020-07-11] MEDS ORDERED: SODIUM CHLORIDE 250 ML IV STA (16:22)
[2020-07-11] MEDS: IBUPROFEN 800 MG/8 ML IJ IVPB PRN (18:55)
[2020-07-11] MEDS: SENNOSIDES 8.6MG TABLET (FP) PO SCH (21:08)
[2020-07-12] MEDS ORDERED: PIPERACILLIN/TAZOBACTAM 2.25 GM VIAL IVPB ONE ×2 (01:19→10:22)
[2020-07-12] MEDS ORDERED: DEXTROSE 5%-WATER - 50 ML IVPB ONE ×2 (01:20→10:22)
[2020-07-12] MEDS: PIPERACILLIN/TAZOB 2.25 GM 2.25 GM in DEXTROSE 5%-WATER - 50 ML IVPB SCH ×2 (01:40→10:30)
[2020-07-12] MEDS: IBUPROFEN 800 MG/8 ML IJ IVPB PRN (02:50)
[2020-07-12] MEDS ORDERED: PT OWN MED DRAWER 7, Y5N ONE ×3 (05:00→21:53)
[2020-07-12] MEDS: BANATROL PLUS POWDER PACKET PEG SCH ×3 (05:35→22:10)
[2020-07-12] MEDS: FERROUS SO4 300 MG/5 ML ORAL SOLN UNIT DOSE CUPS GT SCH ×3 (05:35→22:11)
[2020-07-12] MEDS: AMINO ACIDS/PROTEIN HYDROLYS 30 ML LIQUID.PKT GT SCH ×2 (08:29→16:53)
[2020-07-12] MEDS: FAMOTIDINE 40 MG/5 ML ORAL SUSPENSION NGT SCH ×2 (10:29→22:10)
[2020-07-12] MEDS: COLLAGENASE CLOSTRIDIUM HIST. 30 GRAMS TUBE TP SCH (10:30)
[2020-07-12] MEDS: VITAMIN B COMP W-C 1 EA TABLET (NEPHRO-VITE) PO SCH (10:30)
[2020-07-12] MEDS: levETIRAcetam 500 MG/5 ML ORAL SOLUTION (UNIT-DOSE CUPS) GT SCH (10:30)
[2020-07-12] MEDS: CARVEDILOL 3.125 MG TABLET (FP) PO SCH ×2 (10:30→22:18)
[2020-07-12 10:51] LABS: BASO % 0.8 % (0-2.0); EOS % 2.8 % (0-4.5); HEMATOCRIT 26.4 % (35.4-49); HEMOGLOBIN 8.1 GM/dL (11.7-16.9); LYMPH % 12.7 % (8-40); MCH 25.7 pg (25.7-33.7); MCHC 30.5 g/dl (32.0-35.9); MEAN CELL VOLUME 84.1 fl (80-96); MEAN PLT VOLUME 7.1 fl (7.5-11.1); MONO % 5.2 % (3.8-10.2); NEUT % 78.5 % (42.8-82.8); PLATELET COUNT 423 K/MM3 (134-434); RBC 3.14 M/mm3 (4.00-5.60); RDW 16.7 % (11.9-15.9); WHITE BLOOD COUNT 12.2 K/mm3 (4.0-10.0)
[2020-07-12 11:08] LABS: POTASSIUM 3.2 mmol/L (3.5-5.1)
[2020-07-12 11:10] LABS: ALBUMIN 1.6 g/dl (3.4-5.0); BLOOD UREA NITROGEN 50.7 mg/dL (7-18); CALCIUM 9.7 mg/dL (8.5-10.1)
[2020-07-12 11:14] LABS: CREATININE 2.6 mg/dL (0.55-1.3)
[2020-07-12 11:15] LABS: BILIRUBIN,TOTAL 0.3 mg/dL (0.2-1)
[2020-07-12] MEDS ORDERED: POTASSIUM CHLORIDE ORAL LIQUID 20 MEQ/15 ML PO ONE (12:00)
[2020-07-12] MEDS: SENNOSIDES 8.6MG TABLET (FP) PO SCH (22:10)
[2020-07-13] MEDS: BANATROL PLUS POWDER PACKET PEG SCH ×3 (05:40→21:50)
[2020-07-13] MEDS: FERROUS SO4 300 MG/5 ML ORAL SOLN UNIT DOSE CUPS GT SCH ×3 (05:40→21:50)
[2020-07-13] MEDS ORDERED: HEPARIN NA (PORCINE) 5,000 UNITS/ML 1ML VIAL IVPUSH ONE (07:00)
[2020-07-13] MEDS ORDERED: SODIUM CHLORIDE 250 ML IV PRN (07:00)
[2020-07-13] MEDS ORDERED: EPOETIN ALFA-EPBX 4,000 UNIT/ML VIAL SQ ONE (08:00)
[2020-07-13 09:30] LABS: BASO % 0.4 % (0-2.0); EOS % 2.8 % (0-4.5); HEMATOCRIT 23.7 % (35.4-49); HEMOGLOBIN 7.2 GM/dL (11.7-16.9); LYMPH % 10.8 % (8-40); MCH 25.4 pg (25.7-33.7); MCHC 30.4 g/dl (32.0-35.9); MEAN CELL VOLUME 83.5 fl (80-96); MEAN PLT VOLUME 7.2 fl (7.5-11.1); PLATELET COUNT 428 K/MM3 (134-434); RBC 2.84 M/mm3 (4.00-5.60); RDW 17.3 % (11.9-15.9); WHITE BLOOD COUNT 12.4 K/mm3 (4.0-10.0)
[2020-07-13 09:50] LABS: POTASSIUM 3.7 mmol/L (3.5-5.1)
[2020-07-13 09:56] LABS: ALBUMIN 1.6 g/dl (3.4-5.0); BLOOD UREA NITROGEN 65.7 mg/dL (7-18); CALCIUM 9.5 mg/dL (8.5-10.1)
[2020-07-13 10:00] LABS: CREATININE 3.3 mg/dL (0.55-1.3)
[2020-07-13 10:01] LABS: BILIRUBIN,TOTAL 0.4 mg/dL (0.2-1); TOT PROT 6.6 g/dl (6.4-8.2)
[2020-07-13] MEDS: CARVEDILOL 3.125 MG TABLET (FP) PO SCH ×2 (11:41→21:43)
[2020-07-13] MEDS: COLLAGENASE CLOSTRIDIUM HIST. 30 GRAMS TUBE TP SCH (11:42)
[2020-07-13] MEDS: FAMOTIDINE 40 MG/5 ML ORAL SUSPENSION NGT SCH ×2 (11:56→21:50)
[2020-07-13] MEDS: levETIRAcetam 500 MG/5 ML ORAL SOLUTION (UNIT-DOSE CUPS) GT SCH ×2 (11:56→17:12)
[2020-07-13] MEDS: AMINO ACIDS/PROTEIN HYDROLYS 30 ML LIQUID.PKT GT SCH ×2 (11:56→17:12)
[2020-07-13] MEDS: VITAMIN B COMP W-C 1 EA TABLET (NEPHRO-VITE) PO SCH (11:57)
[2020-07-13] MEDS ORDERED: PT OWN MED DRAWER 7, Y5N ONE ×2 (15:07→21:35)
[2020-07-13] MEDS: SENNOSIDES 8.6MG TABLET (FP) PO SCH (21:50)
[2020-07-13] MEDS: IBUPROFEN 800 MG/8 ML IJ IVPB PRN (21:51)
[2020-07-14] MEDS: FERROUS SO4 300 MG/5 ML ORAL SOLN UNIT DOSE CUPS GT SCH ×3 (05:10→21:05)
[2020-07-14] MEDS: BANATROL PLUS POWDER PACKET PEG SCH ×3 (05:10→21:05)
[2020-07-14] MEDS ORDERED: PT OWN MED DRAWER 7, Y5N ONE ×4 (09:27→20:37)
[2020-07-14] MEDS: VITAMIN B COMP W-C 1 EA TABLET (NEPHRO-VITE) PO SCH (09:29)
[2020-07-14] MEDS: levETIRAcetam 500 MG/5 ML ORAL SOLUTION (UNIT-DOSE CUPS) GT SCH (09:30)
[2020-07-14] MEDS: AMINO ACIDS/PROTEIN HYDROLYS 30 ML LIQUID.PKT GT SCH ×2 (09:30→17:09)
[2020-07-14] MEDS: FAMOTIDINE 40 MG/5 ML ORAL SUSPENSION NGT SCH ×2 (09:32→21:05)
[2020-07-14] MEDS: CARVEDILOL 3.125 MG TABLET (FP) PO SCH ×2 (09:48→21:04)
[2020-07-14] MEDS ORDERED: ONDANSETRON 4 MG/2 ML VIAL IVPB PRN (11:22)
[2020-07-14 12:27] LABS: BASO % 0.5 % (0-2.0); EOS % 2.3 % (0-4.5); HEMATOCRIT 25.3 % (35.4-49); HEMOGLOBIN 7.8 GM/dL (11.7-16.9); LYMPH % 17.5 % (8-40); MCH 25.8 pg (25.7-33.7); MCHC 30.8 g/dl (32.0-35.9); MEAN CELL VOLUME 83.7 fl (80-96); MONO % 5.5 % (3.8-10.2); NEUT % 74.2 % (42.8-82.8); PLATELET COUNT 436 K/MM3 (134-434); RBC 3.03 M/mm3 (4.00-5.60); RDW 17.1 % (11.9-15.9)
[2020-07-14 13:16] LABS: POTASSIUM 3.9 mmol/L (3.5-5.1)
[2020-07-14 13:19] LABS: ALBUMIN 1.7 g/dl (3.4-5.0); BLOOD UREA NITROGEN 48.6 mg/dL (7-18); CALCIUM 10.3 mg/dL (8.5-10.1)
[2020-07-14 13:23] LABS: CREATININE 2.4 mg/dL (0.55-1.3)
[2020-07-14 13:24] LABS: BILIRUBIN,TOTAL 0.5 mg/dL (0.2-1)
[2020-07-14] MEDS: IBUPROFEN 800 MG/8 ML IJ IVPB PRN (21:19)
[2020-07-14] MEDS: SENNOSIDES 8.6MG TABLET (FP) PO SCH (21:37)
[2020-07-15] MEDS: FERROUS SO4 300 MG/5 ML ORAL SOLN UNIT DOSE CUPS GT SCH ×3 (05:33→21:10)
[2020-07-15] MEDS: BANATROL PLUS POWDER PACKET PEG SCH ×3 (05:33→21:11)
[2020-07-15] MEDS ORDERED: PT OWN MED DRAWER 7, Y5N ONE ×3 (09:02→21:08)
[2020-07-15] MEDS: IBUPROFEN 800 MG/8 ML IJ IVPB PRN ×2 (09:10→23:33)
[2020-07-15] MEDS: AMINO ACIDS/PROTEIN HYDROLYS 30 ML LIQUID.PKT GT SCH ×2 (09:14→17:59)
[2020-07-15] MEDS: levETIRAcetam 500 MG/5 ML ORAL SOLUTION (UNIT-DOSE CUPS) GT SCH (09:14)
[2020-07-15] MEDS: CARVEDILOL 3.125 MG TABLET (FP) PO SCH ×2 (09:14→21:10)
[2020-07-15] MEDS: VITAMIN B COMP W-C 1 EA TABLET (NEPHRO-VITE) PO SCH (09:14)
[2020-07-15] MEDS: FAMOTIDINE 40 MG/5 ML ORAL SUSPENSION NGT SCH ×2 (09:14→21:11)
[2020-07-15 13:18] LABS: BASO % 0.5 % (0-2.0); EOS % 3.8 % (0-4.5); HEMATOCRIT 23.4 % (35.4-49); HEMOGLOBIN 7.3 GM/dL (11.7-16.9); LYMPH % 12.6 % (8-40); MCH 26.2 pg (25.7-33.7); MCHC 31.1 g/dl (32.0-35.9); MEAN CELL VOLUME 84.4 fl (80-96); MEAN PLT VOLUME 7.5 fl (7.5-11.1); MONO % 5.4 % (3.8-10.2); NEUT % 77.7 % (42.8-82.8); PLATELET COUNT 520 K/MM3 (134-434); RBC 2.78 M/mm3 (4.00-5.60); RDW 17.1 % (11.9-15.9)
[2020-07-15 13:27] LABS: WHITE BLOOD COUNT 13.5 K/mm3 (4.0-10.0)
[2020-07-15 13:30] LABS: CHLORIDE 95 mmol/L (98-107); POTASSIUM 3.8 mmol/L (3.5-5.1); SODIUM 134 mmol/L (136-145)
[2020-07-15 13:32] LABS: CALCIUM 9.9 mg/dL (8.5-10.1)
[2020-07-15 13:33] LABS: ALBUMIN 1.7 g/dl (3.4-5.0); ANION GAP 13 MMOL/L (8-16); BLOOD UREA NITROGEN 66.7 mg/dL (7-18); CO2 26 mmol/L (21-32); GLUCOSE,RANDOM 95 mg/dL (74-106)
[2020-07-15 13:36] LABS: CREATININE 3.1 mg/dL (0.55-1.3); IRON SERUM 28 ug/dL (50-175); SGOT/AST 34 U/L (15-37); SGPT/ALT 59 U/L (13-61); TOTAL IRON BINDING CAPACITY 98 ug/dL (250-450)
[2020-07-15 13:37] LABS: BILIRUBIN,TOTAL 0.3 mg/dL (0.2-1)
[2020-07-15 13:39] LABS: ALK PHOS 136 U/L (45-117)
[2020-07-15 14:32] LABS: PLATELET ESTIMATE NORMAL
[2020-07-15] MEDS: SENNOSIDES 8.6MG TABLET (FP) PO SCH (21:11)
[2020-07-16] MEDS: BANATROL PLUS POWDER PACKET PEG SCH ×3 (05:12→21:00)
[2020-07-16] MEDS: FERROUS SO4 300 MG/5 ML ORAL SOLN UNIT DOSE CUPS GT SCH ×3 (05:12→21:00)
[2020-07-16 07:42] LABS: BASO % 0.5 % (0-2.0); EOS % 4.2 % (0-4.5); HEMATOCRIT 22.2 % (35.4-49); HEMOGLOBIN 6.9 GM/dL (11.7-16.9); MCH 25.6 pg (25.7-33.7); MEAN CELL VOLUME 82.5 fl (80-96); MEAN PLT VOLUME 6.9 fl (7.5-11.1); MONO % 6.1 % (3.8-10.2); NEUT % 78.2 % (42.8-82.8); PLATELET COUNT 428 K/MM3 (134-434); RBC 2.69 M/mm3 (4.00-5.60); RDW 16.7 % (11.9-15.9); WHITE BLOOD COUNT 11.9 K/mm3 (4.0-10.0)
[2020-07-16 08:05] LABS: POTASSIUM 4.2 mmol/L (3.5-5.1)
[2020-07-16 08:13] LABS: ALBUMIN 1.7 g/dl (3.4-5.0); CALCIUM 9.8 mg/dL (8.5-10.1)
[2020-07-16 08:14] LABS: BLOOD UREA NITROGEN 82.8 mg/dL (7-18)
[2020-07-16 08:17] LABS: CREATININE 3.6 mg/dL (0.55-1.3)
[2020-07-16 08:18] LABS: BILIRUBIN,TOTAL 0.5 mg/dL (0.2-1); TOT PROT 6.4 g/dl (6.4-8.2)
[2020-07-16] MEDS: AMINO ACIDS/PROTEIN HYDROLYS 30 ML LIQUID.PKT GT SCH ×2 (08:29→17:32)
[2020-07-16] MEDS ORDERED: SODIUM CHLORIDE 250 ML IV PRN (11:05)
[2020-07-16] MEDS ORDERED: HEPARIN NA (PORCINE) 5,000 UNITS/ML 1ML VIAL IVPUSH ONE (11:05)
[2020-07-16] MEDS ORDERED: EPOETIN ALFA-EPBX 10,000 UNIT/ML VIAL SQ ONE (12:00)
[2020-07-16] MEDS ORDERED: PT OWN MED DRAWER 7, Y5N ONE ×3 (12:17→20:28)
[2020-07-16] MEDS: VITAMIN B COMP W-C 1 EA TABLET (NEPHRO-VITE) PO SCH (13:57)
[2020-07-16] MEDS: levETIRAcetam 500 MG/5 ML ORAL SOLUTION (UNIT-DOSE CUPS) GT SCH ×2 (13:58→17:32)
[2020-07-16] MEDS: CARVEDILOL 3.125 MG TABLET (FP) PO SCH ×2 (13:58→21:00)
[2020-07-16] MEDS: FAMOTIDINE 40 MG/5 ML ORAL SUSPENSION NGT SCH ×2 (14:05→21:00)
[2020-07-16] MEDS: IBUPROFEN 800 MG/8 ML IJ IVPB PRN (17:31)
[2020-07-16] MEDS ORDERED: ACETAMINOPHEN 1000 MG/100 ML VIAL (NON FORMULARY) IVPB ONE (19:27)
[2020-07-16] MEDS: SENNOSIDES 8.6MG TABLET (FP) PO SCH (21:00)
[2020-07-17] MEDS: BANATROL PLUS POWDER PACKET PEG SCH ×3 (05:18→23:10)
[2020-07-17] MEDS: FERROUS SO4 300 MG/5 ML ORAL SOLN UNIT DOSE CUPS GT SCH ×3 (05:19→23:11)
[2020-07-17] MEDS ORDERED: PT OWN MED DRAWER 7, Y5N ONE ×3 (11:02→22:25)
[2020-07-17] MEDS: CARVEDILOL 3.125 MG TABLET (FP) PO SCH ×2 (11:05→23:11)
[2020-07-17] MEDS: FAMOTIDINE 40 MG/5 ML ORAL SUSPENSION NGT SCH ×2 (11:06→23:11)
[2020-07-17] MEDS: VITAMIN B COMP W-C 1 EA TABLET (NEPHRO-VITE) PO SCH (11:06)
[2020-07-17] MEDS: AMINO ACIDS/PROTEIN HYDROLYS 30 ML LIQUID.PKT GT SCH ×2 (11:06→19:27)
[2020-07-17] MEDS: levETIRAcetam 500 MG/5 ML ORAL SOLUTION (UNIT-DOSE CUPS) GT SCH (11:06)
[2020-07-17] MEDS: SODIUM HYPOCHLORITE 0.25%- 473 ML BULK BOTTLE TP SCH (11:07)
[2020-07-17] MEDS ORDERED: IBUPROFEN 100 MG/5 ML UNIT DOSE CUPS PO PRN (16:59)
[2020-07-17 20:54] LABS: BASO % 0.3 % (0-2.0); EOS % 1.8 % (0-4.5); HEMOGLOBIN 7.8 GM/dL (11.7-16.9); LYMPH % 8.2 % (8-40); MCH 25.2 pg (25.7-33.7); MCHC 30.2 g/dl (32.0-35.9); MEAN CELL VOLUME 83.2 fl (80-96); MONO % 6.1 % (3.8-10.2); NEUT % 83.6 % (42.8-82.8); PLATELET COUNT 430 K/MM3 (134-434); RBC 3.12 M/mm3 (4.00-5.60)
[2020-07-17 21:26] LABS: CALCIUM 9.3 mg/dL (8.5-10.1)
[2020-07-17 21:27] LABS: ALBUMIN 1.7 g/dl (3.4-5.0)
[2020-07-17 21:30] LABS: CREATININE 2.8 mg/dL (0.55-1.3)
[2020-07-17 21:31] LABS: BILIRUBIN,TOTAL 0.3 mg/dL (0.2-1)
[2020-07-17 21:32] LABS: TOT PROT 6.9 g/dl (6.4-8.2)
[2020-07-17 21:34] LABS: BLOOD UREA NITROGEN 52.8 mg/dL (7-18)
[2020-07-17] MEDS: SENNOSIDES 8.6MG TABLET (FP) PO SCH (23:11)
[2020-07-18] MEDS: BANATROL PLUS POWDER PACKET PEG SCH ×3 (05:03→21:18)
[2020-07-18] MEDS: FERROUS SO4 300 MG/5 ML ORAL SOLN UNIT DOSE CUPS GT SCH ×3 (05:03→21:18)
[2020-07-18 08:15] LABS: BASO % 0.4 % (0-2.0); EOS % 2.4 % (0-4.5); HEMATOCRIT 25.5 % (35.4-49); HEMOGLOBIN 7.7 GM/dL (11.7-16.9); LYMPH % 8.2 % (8-40); MCH 24.9 pg (25.7-33.7); MCHC 30.3 g/dl (32.0-35.9); MEAN CELL VOLUME 82.1 fl (80-96); MONO % 7.1 % (3.8-10.2); NEUT % 81.9 % (42.8-82.8); PLATELET COUNT 420 K/MM3 (134-434); RBC 3.11 M/mm3 (4.00-5.60); RDW 16.4 % (11.9-15.9); WHITE BLOOD COUNT 14.2 K/mm3 (4.0-10.0)
[2020-07-18 08:42] LABS: POTASSIUM 3.9 mmol/L (3.5-5.1)
[2020-07-18 08:44] LABS: CALCIUM 9.7 mg/dL (8.5-10.1)
[2020-07-18 08:45] LABS: ALBUMIN 1.6 g/dl (3.4-5.0); BLOOD UREA NITROGEN 61.2 mg/dL (7-18)
[2020-07-18 08:48] LABS: CREATININE 3.1 mg/dL (0.55-1.3)
[2020-07-18 08:50] LABS: BILIRUBIN,TOTAL 0.4 mg/dL (0.2-1); TOT PROT 6.8 g/dl (6.4-8.2)
[2020-07-18] MEDS ORDERED: SODIUM CHLORIDE 250 ML IV PRN (09:36)
[2020-07-18] MEDS ORDERED: HEPARIN NA (PORCINE) 5,000 UNITS/ML 1ML VIAL IVPUSH ONE (09:45)
[2020-07-18] MEDS ORDERED: EPOETIN ALFA-EPBX 10,000 UNIT/ML VIAL SQ ONE (09:45)
[2020-07-18] MEDS: CARVEDILOL 3.125 MG TABLET (FP) PO SCH ×2 (09:48→21:19)
[2020-07-18] MEDS ORDERED: PT OWN MED DRAWER 7, Y5N ONE ×3 (11:15→23:43)
[2020-07-18] MEDS: AMINO ACIDS/PROTEIN HYDROLYS 30 ML LIQUID.PKT GT SCH ×2 (11:28→18:48)
[2020-07-18] MEDS: levETIRAcetam 500 MG/5 ML ORAL SOLUTION (UNIT-DOSE CUPS) GT SCH ×2 (11:28→18:47)
[2020-07-18] MEDS: VITAMIN B COMP W-C 1 EA TABLET (NEPHRO-VITE) PO SCH (11:29)
[2020-07-18] MEDS: FAMOTIDINE 40 MG/5 ML ORAL SUSPENSION NGT SCH ×2 (11:29→21:19)
[2020-07-18] MEDS: SODIUM HYPOCHLORITE 0.25%- 473 ML BULK BOTTLE TP SCH (14:00)
[2020-07-18] MEDS: ACETAMINOPHEN 650 MG/20.3 ML ORAL SOLUTION (CUPS) GT PRN (18:47)
[2020-07-18 21:03] LABS: BASO % 0.5 % (0-2.0); EOS % 0.2 % (0-4.5); HEMOGLOBIN 7.5 GM/dL (11.7-16.9); LYMPH % 5.4 % (8-40); MCH 25.4 pg (25.7-33.7); MCHC 30.1 g/dl (32.0-35.9); MEAN CELL VOLUME 84.5 fl (80-96); MONO % 5.1 % (3.8-10.2); NEUT % 88.8 % (42.8-82.8); PLATELET COUNT 408 K/MM3 (134-434); RBC 2.95 M/mm3 (4.00-5.60); RDW 16.6 % (11.9-15.9); WHITE BLOOD COUNT 14.3 K/mm3 (4.0-10.0)
[2020-07-18] MEDS: SENNOSIDES 8.6MG TABLET (FP) PO SCH (21:19)
[2020-07-19] MEDS: ACETAMINOPHEN 650 MG/20.3 ML ORAL SOLUTION (CUPS) GT PRN ×2 (04:00→11:57)
[2020-07-19] MEDS: FERROUS SO4 300 MG/5 ML ORAL SOLN UNIT DOSE CUPS GT SCH ×3 (05:31→21:03)
[2020-07-19] MEDS: BANATROL PLUS POWDER PACKET PEG SCH ×3 (05:31→21:03)
[2020-07-19] MEDS: SODIUM HYPOCHLORITE 0.25%- 473 ML BULK BOTTLE TP SCH (10:41)
[2020-07-19] MEDS: CARVEDILOL 3.125 MG TABLET (FP) PO SCH ×2 (10:41→21:03)
[2020-07-19] MEDS: AMINO ACIDS/PROTEIN HYDROLYS 30 ML LIQUID.PKT GT SCH ×2 (10:41→21:00)
[2020-07-19] MEDS: levETIRAcetam 500 MG/5 ML ORAL SOLUTION (UNIT-DOSE CUPS) GT SCH (10:42)
[2020-07-19] MEDS: VITAMIN B COMP W-C 1 EA TABLET (NEPHRO-VITE) PO SCH (10:42)
[2020-07-19] MEDS: FAMOTIDINE 40 MG/5 ML ORAL SUSPENSION NGT SCH ×2 (10:42→21:04)
[2020-07-19] MEDS ORDERED: SODIUM CHLORIDE 250 ML IV ONE (12:30)
[2020-07-19 13:50] LABS: BASO % 0.3 % (0-2.0); EOS % 0.2 % (0-4.5); HEMATOCRIT 22.4 % (35.4-49); LYMPH % 9.7 % (8-40); MCH 26.4 pg (25.7-33.7); MCHC 30.3 g/dl (32.0-35.9); MEAN CELL VOLUME 87.2 fl (80-96); MEAN PLT VOLUME 7.4 fl (7.5-11.1); MONO % 9.5 % (3.8-10.2); NEUT % 80.3 % (42.8-82.8); PLATELET COUNT 344 K/MM3 (134-434); RBC 2.57 M/mm3 (4.00-5.60); RDW 16.9 % (11.9-15.9); WHITE BLOOD COUNT 17.2 K/mm3 (4.0-10.0)
[2020-07-19 13:54] LABS: HEMOGLOBIN 6.8 GM/dL (11.7-16.9)
[2020-07-19] MEDS ORDERED: MEROPENEM 500 MG in DEXTROSE 5%-WATER 100 ML IVPB SCH (14:15)
[2020-07-19] MEDS ORDERED: VANCOMYCIN HCL 1,250 MG in DEXTROSE 5%-WATER - 250 ML IVPB ONE (15:00)
[2020-07-19] MEDS ORDERED: GENTAMICIN INJECTION 120 MG in SODIUM CHLORIDE 100 ML IVPB ONE (15:00)
[2020-07-19] MEDS ORDERED: SODIUM CHLORIDE 250 ML IV STA (15:02)
[2020-07-19] MEDS ORDERED: SODIUM CHLORIDE 1,000 ML IV STA (15:49)
[2020-07-19] MEDS ORDERED: MEROPENEM 1 GM VIAL (RESTRICTED TO ID) IVPB ONE (15:52)
[2020-07-19] MEDS ORDERED: DEXTROSE 5%-WATER 100 ML IVPB ONE (15:52)
[2020-07-19] MEDS: MEROPENEM 1 GM in DEXTROSE 5%-WATER 100 ML IVPB SCH (16:12)
[2020-07-19 18:41] LABS: POTASSIUM 3.3 mmol/L (3.5-5.1)
[2020-07-19 18:43] LABS: ALBUMIN 1.5 g/dl (3.4-5.0); BLOOD UREA NITROGEN 48.9 mg/dL (7-18); CALCIUM 9.8 mg/dL (8.5-10.1)
[2020-07-19 18:47] LABS: CREATININE 2.8 mg/dL (0.55-1.3)
[2020-07-19 18:48] LABS: BILIRUBIN,TOTAL 0.3 mg/dL (0.2-1); TOT PROT 6.5 g/dl (6.4-8.2)
[2020-07-19] MEDS: MUPIROCIN 2% TOPICAL OINTMENT FOR DECOLONIZATION NS SCH (21:02)
[2020-07-19] MEDS: CHLORHEXIDINE GLUCONATE 4% CLEANSER FOR DECOLONIZATION TP SCH (21:04)
[2020-07-19] MEDS: SENNOSIDES 8.6MG TABLET (FP) PO SCH (21:04)
[2020-07-19] MEDS: KCL 10 MEQ IVPB 10 MEQ/100 ML INFUS.BAG IVPB SCH ×2 (22:08→23:37)
[2020-07-20] MEDS: KCL 10 MEQ IVPB 10 MEQ/100 ML INFUS.BAG IVPB SCH (01:02)
[2020-07-20] MEDS: BANATROL PLUS POWDER PACKET PEG SCH (06:25)
[2020-07-20] MEDS: FERROUS SO4 300 MG/5 ML ORAL SOLN UNIT DOSE CUPS GT SCH (06:25)
[2020-07-20] MEDS ORDERED: SODIUM CHLORIDE 250 ML IV PRN (07:12)
[2020-07-20 07:25] LABS: BASO % 0.5 % (0-2.0); EOS % 0.7 % (0-4.5); HEMATOCRIT 25.1 % (35.4-49); HEMOGLOBIN 7.8 GM/dL (11.7-16.9); MCH 26.8 pg (25.7-33.7); MCHC 31.3 g/dl (32.0-35.9); MEAN CELL VOLUME 85.5 fl (80-96); MEAN PLT VOLUME 7.2 fl (7.5-11.1); MONO % 5.8 % (3.8-10.2); PLATELET COUNT 365 K/MM3 (134-434); RBC 2.93 M/mm3 (4.00-5.60); RDW 16.5 % (11.9-15.9); WHITE BLOOD COUNT 13.9 K/mm3 (4.0-10.0)
[2020-07-20 07:48] LABS: POTASSIUM 3.5 mmol/L (3.5-5.1)
[2020-07-20] MEDS ORDERED: HEPARIN NA (PORCINE) 5,000 UNITS/ML 1ML VIAL IVPUSH ONE (08:00)
[2020-07-20] MEDS ORDERED: EPOETIN ALFA 10,000 UNIT/1 ML VIAL SQ ONE (08:00)
[2020-07-20 08:05] LABS: CALCIUM 10.4 mg/dL (8.5-10.1)
[2020-07-20 08:06] LABS: ALBUMIN 1.4 g/dl (3.4-5.0); BLOOD UREA NITROGEN 55.1 mg/dL (7-18); MAGNESIUM 2.4 mg/dL (1.8-2.4)
[2020-07-20 08:08] LABS: PHOSPHOROUS 3.4 mg/dL (2.5-4.9)
[2020-07-20 08:09] LABS: BILIRUBIN,TOTAL 0.6 mg/dL (0.2-1); TOT PROT 6.4 g/dl (6.4-8.2)
[2020-07-20] MEDS: AMINO ACIDS/PROTEIN HYDROLYS 30 ML LIQUID.PKT GT SCH ×2 (08:19→10:57)
[2020-07-20] MEDS ORDERED: MEROPENEM 1 GM VIAL (RESTRICTED TO ID) IVPB ONE (09:16)
[2020-07-20] MEDS ORDERED: DEXTROSE 5%-WATER 100 ML IVPB ONE (09:16)
[2020-07-20] MEDS: MEROPENEM 1 GM in DEXTROSE 5%-WATER 100 ML IVPB SCH (10:13)
[2020-07-20] MEDS: PANTOPRAZOLE SODIUM 40 MG VIAL IVPUSH SCH (10:13)
[2020-07-20] MEDS: FAMOTIDINE 40 MG/5 ML ORAL SUSPENSION NGT SCH (10:15)
[2020-07-20] MEDS: MUPIROCIN 2% TOPICAL OINTMENT FOR DECOLONIZATION NS SCH ×2 (10:15→21:01)
[2020-07-20] MEDS: VITAMIN B COMP W-C 1 EA TABLET (NEPHRO-VITE) PO SCH ×2 (10:52→11:50)
[2020-07-20] MEDS: CARVEDILOL 3.125 MG TABLET (FP) PO SCH ×2 (10:52→11:49)
[2020-07-20] MEDS: levETIRAcetam 500 MG/5 ML ORAL SOLUTION (UNIT-DOSE CUPS) GT SCH (11:50)
[2020-07-20] MEDS ORDERED: METOPROLOL TARTRATE 5 MG/5 ML VIAL IVPUSH PRN ×2 (12:13→22:11)
[2020-07-20] MEDS ORDERED: levETIRAcetam 500 MG/5 ML INJECTION VIAL IVPB SCH (12:15)
[2020-07-20] MEDS ORDERED: IBUPROFEN 800 MG/8 ML IJ IVPB PRN (12:18)
[2020-07-20] MEDS: levETIRAcetam 500 MG/5 ML INJECTION VIAL IVPB SCH ×2 (16:47→17:13)
[2020-07-20] MEDS: SODIUM HYPOCHLORITE 0.25%- 473 ML BULK BOTTLE TP SCH (21:00)
[2020-07-20] MEDS: CHLORHEXIDINE GLUCONATE 4% CLEANSER FOR DECOLONIZATION TP SCH (21:01)
[2020-07-21] MEDS ORDERED: ACETAMINOPHEN 1000 MG/100 ML VIAL (NON FORMULARY) IVPB ONE (00:15)
[2020-07-21] MEDS ORDERED: ACETAMINOPHEN INJECTION 100 ML IVPB ONE (00:25)
[2020-07-21] MEDS ORDERED: MEROPENEM 1 GM VIAL (RESTRICTED TO ID) IVPB ONE (08:34)
[2020-07-21] MEDS ORDERED: DEXTROSE 5%-WATER 100 ML IVPB ONE (08:34)
[2020-07-21] MEDS: levETIRAcetam 500 MG/5 ML INJECTION VIAL IVPB SCH (09:43)
[2020-07-21] MEDS: PANTOPRAZOLE SODIUM 40 MG VIAL IVPUSH SCH (09:43)
[2020-07-21] MEDS: MEROPENEM 1 GM in DEXTROSE 5%-WATER 100 ML IVPB SCH (09:43)
[2020-07-21] MEDS: SODIUM HYPOCHLORITE 0.25%- 473 ML BULK BOTTLE TP SCH (09:44)
[2020-07-21] MEDS: MUPIROCIN 2% TOPICAL OINTMENT FOR DECOLONIZATION NS SCH ×2 (09:44→22:07)
[2020-07-21] MEDS ORDERED: VANCOMYCIN 1 GRAM (PRE-DOCKED) 1,000 MG/250 ML BAG IVPB ONE (10:22)
[2020-07-21] MEDS: CHLORHEXIDINE GLUCONATE 4% CLEANSER FOR DECOLONIZATION TP SCH (22:07)
[2020-07-22] MEDS ORDERED: MEROPENEM 1 GM VIAL (RESTRICTED TO ID) IVPB ONE (09:14)
[2020-07-22] MEDS ORDERED: DEXTROSE 5%-WATER 100 ML IVPB ONE (09:14)
[2020-07-22 09:23] LABS: HEMATOCRIT 26.9 % (35.4-49); MCH 25.5 pg (25.7-33.7); MCHC 29.8 g/dl (32.0-35.9); MEAN CELL VOLUME 85.6 fl (80-96); PLATELET COUNT 338 K/MM3 (134-434); RBC 3.14 M/mm3 (4.00-5.60); RDW 16.6 % (11.9-15.9); WHITE BLOOD COUNT 11.9 K/mm3 (4.0-10.0)
[2020-07-22 09:45] LABS: POTASSIUM 3.2 mmol/L (3.5-5.1)
[2020-07-22 09:53] LABS: BLOOD UREA NITROGEN 52.5 mg/dL (7-18)
[2020-07-22 09:54] LABS: ALBUMIN 1.4 g/dl (3.4-5.0); CALCIUM 10.5 mg/dL (8.5-10.1)
[2020-07-22 09:55] LABS: MAGNESIUM 2.2 mg/dL (1.8-2.4)
[2020-07-22 10:00] LABS: BILIRUBIN,TOTAL 0.7 mg/dL (0.2-1); PHOSPHOROUS 2.4 mg/dL (2.5-4.9); TOT PROT 6.3 g/dl (6.4-8.2)
[2020-07-22] MEDS: MEROPENEM 1 GM in DEXTROSE 5%-WATER 100 ML IVPB SCH (10:06)
[2020-07-22] MEDS: levETIRAcetam 500 MG/5 ML INJECTION VIAL IVPB SCH (10:07)
[2020-07-22] MEDS ORDERED: SODIUM CHLORIDE 250 ML IV PRN (10:07)
[2020-07-22] MEDS: PANTOPRAZOLE SODIUM 40 MG VIAL IVPUSH SCH (10:07)
[2020-07-22] MEDS: SODIUM HYPOCHLORITE 0.25%- 473 ML BULK BOTTLE TP SCH (10:07)
[2020-07-22] MEDS: MUPIROCIN 2% TOPICAL OINTMENT FOR DECOLONIZATION NS SCH ×2 (10:13→21:19)
[2020-07-22] MEDS: AMINO ACIDS 4.25%/D5W 1,000 ML IV SCH (11:08)
[2020-07-22] MEDS: KCL 10 MEQ IVPB 10 MEQ/100 ML INFUS.BAG IVPB SCH ×2 (11:31→13:00)
[2020-07-22] MEDS ORDERED: LIDOCAINE 1%/EPI 1:100000 (20 ML MULTI DOSE VIAL) INF ONE (11:54)
[2020-07-22] MEDS: BANATROL PLUS POWDER PACKET PEG SCH ×2 (18:50→21:20)
[2020-07-22] MEDS: AMINO ACIDS/PROTEIN HYDROLYS 30 ML LIQUID.PKT GT SCH (18:50)
[2020-07-22] MEDS: CHLORHEXIDINE GLUCONATE 4% CLEANSER FOR DECOLONIZATION TP SCH (21:20)
[2020-07-23] MEDS: BANATROL PLUS POWDER PACKET PEG SCH ×4 (06:17→23:39)
[2020-07-23 07:21] LABS: POTASSIUM 3.3 mmol/L (3.5-5.1)
[2020-07-23 07:25] LABS: ALBUMIN 1.4 g/dl (3.4-5.0); BLOOD UREA NITROGEN 62.6 mg/dL (7-18); MAGNESIUM 2.2 mg/dL (1.8-2.4)
[2020-07-23 07:28] LABS: CREATININE 3.6 mg/dL (0.55-1.3); PHOSPHOROUS 2.2 mg/dL (2.5-4.9)
[2020-07-23 07:29] LABS: BILIRUBIN,TOTAL 0.6 mg/dL (0.2-1)
[2020-07-23] MEDS ORDERED: POTASSIUM PHOSPHATE 10 MM in SODIUM CHLORIDE 250 ML IVPB ONE (08:00)
[2020-07-23] MEDS ORDERED: EPOETIN ALFA 20,000 UNIT/1 ML VIAL IVPUSH ONE ×2 (08:00→09:30)
[2020-07-23] MEDS: AMINO ACIDS/PROTEIN HYDROLYS 30 ML LIQUID.PKT GT SCH ×3 (08:58→18:17)
[2020-07-23 09:16] LABS: BASO % 0.5 % (0-2.0); EOS % 3.1 % (0-4.5); HEMATOCRIT 25.2 % (35.4-49); HEMOGLOBIN 7.5 GM/dL (11.7-16.9); LYMPH % 11.6 % (8-40); MCH 25.3 pg (25.7-33.7); MCHC 29.9 g/dl (32.0-35.9); MEAN CELL VOLUME 84.7 fl (80-96); MONO % 6.3 % (3.8-10.2); NEUT % 78.5 % (42.8-82.8); PLATELET COUNT 318 K/MM3 (134-434); RBC 2.97 M/mm3 (4.00-5.60); RDW 16.5 % (11.9-15.9); WHITE BLOOD COUNT 11.8 K/mm3 (4.0-10.0)
[2020-07-23] MEDS: SODIUM HYPOCHLORITE 0.25%- 473 ML BULK BOTTLE TP SCH (09:35)
[2020-07-23] MEDS: MUPIROCIN 2% TOPICAL OINTMENT FOR DECOLONIZATION NS SCH (09:42)
[2020-07-23] MEDS ORDERED: DEXTROSE 5%-WATER 100 ML IVPB ONE (09:43)
[2020-07-23] MEDS ORDERED: MEROPENEM 1 GM VIAL (RESTRICTED TO ID) IVPB ONE (09:43)
[2020-07-23] MEDS: levETIRAcetam 500 MG/5 ML INJECTION VIAL IVPB SCH ×2 (09:45→18:24)
[2020-07-23] MEDS: MEROPENEM 1 GM in DEXTROSE 5%-WATER 100 ML IVPB SCH (09:46)
[2020-07-23] MEDS: PANTOPRAZOLE SODIUM 40 MG VIAL IVPUSH SCH (09:46)
[2020-07-23] MEDS: AMINO ACIDS 4.25%/D5W 1,000 ML IV SCH ×2 (09:46→21:30)
[2020-07-23] MEDS ORDERED: ALBUTEROL SO4 HFA INHALER IH PRN (20:18)
[2020-07-23] MEDS ORDERED: ONDANSETRON 4 MG/2 ML VIAL IVPB PRN (20:18)
[2020-07-23] MEDS: CARVEDILOL 3.125 MG TABLET (FP) PO SCH (21:28)
[2020-07-23] MEDS: FERROUS SO4 300 MG/5 ML ORAL SOLN UNIT DOSE CUPS GT SCH (21:42)
[2020-07-24] MEDS: IBUPROFEN 800 MG/8 ML IJ IVPB PRN (00:24)
[2020-07-24] MEDS: BANATROL PLUS POWDER PACKET PEG SCH ×3 (05:08→21:24)
[2020-07-24] MEDS: FERROUS SO4 300 MG/5 ML ORAL SOLN UNIT DOSE CUPS GT SCH ×3 (05:08→21:24)
[2020-07-24] MEDS: AMINO ACIDS/PROTEIN HYDROLYS 30 ML LIQUID.PKT GT SCH ×2 (09:21→16:33)
[2020-07-24] MEDS: CARVEDILOL 3.125 MG TABLET (FP) PO SCH ×2 (09:22→21:24)
[2020-07-24] MEDS ORDERED: DEXTROSE 5%-WATER 100 ML IVPB ONE (10:39)
[2020-07-24] MEDS ORDERED: MEROPENEM 1 GM VIAL (RESTRICTED TO ID) IVPB ONE (10:39)
[2020-07-24] MEDS: PANTOPRAZOLE SODIUM 40 MG VIAL IVPUSH SCH (10:46)
[2020-07-24] MEDS: MEROPENEM 1 GM in DEXTROSE 5%-WATER 100 ML IVPB SCH ×2 (10:46→11:45)
[2020-07-24] MEDS: AMINO ACIDS 4.25%/D5W 1,000 ML IV SCH ×2 (10:46→19:34)
[2020-07-24] MEDS: levETIRAcetam 500 MG/5 ML INJECTION VIAL IVPB SCH (10:46)
[2020-07-24] MEDS: SODIUM HYPOCHLORITE 0.25%- 473 ML BULK BOTTLE TP SCH (11:46)
[2020-07-24] MEDS: MORPHINE SULFATE 2 MG/ML VIAL IVPUSH PRN (11:46)
[2020-07-24] MEDS: LINEZOLID 600 MG PREMIX BAG 600 MG/300 ML BAG IVPB SCH (16:27)
[2020-07-24] MEDS ORDERED: SODIUM CHLORIDE 250 ML IV PRN (18:41)
[2020-07-25] MEDS: MORPHINE SULFATE 2 MG/ML VIAL IVPUSH PRN ×2 (02:07→11:27)
[2020-07-25] MEDS: LINEZOLID 600 MG PREMIX BAG 600 MG/300 ML BAG IVPB SCH ×3 (02:36→15:19)
[2020-07-25] MEDS ORDERED: ACETAMINOPHEN 650 MG/20.3 ML ORAL SOLUTION (CUPS) PEG PRN (06:05)
[2020-07-25] MEDS: FERROUS SO4 300 MG/5 ML ORAL SOLN UNIT DOSE CUPS GT SCH (06:09)
[2020-07-25] MEDS: BANATROL PLUS POWDER PACKET PEG SCH ×3 (06:09→22:13)
[2020-07-25] MEDS: AMINO ACIDS/PROTEIN HYDROLYS 30 ML LIQUID.PKT GT SCH ×2 (08:00→17:15)
[2020-07-25 09:04] LABS: BASO % 0.4 % (0-2.0); EOS % 3.8 % (0-4.5); HEMATOCRIT 22.8 % (35.4-49); LYMPH % 14.6 % (8-40); MCH 25.7 pg (25.7-33.7); MCHC 30.4 g/dl (32.0-35.9); MEAN CELL VOLUME 84.6 fl (80-96); MEAN PLT VOLUME 7.2 fl (7.5-11.1); MONO % 5.9 % (3.8-10.2); NEUT % 75.3 % (42.8-82.8); PLATELET COUNT 355 K/MM3 (134-434); RBC 2.69 M/mm3 (4.00-5.60); RDW 16.9 % (11.9-15.9); WHITE BLOOD COUNT 11.7 K/mm3 (4.0-10.0)
[2020-07-25 09:07] LABS: HEMOGLOBIN 6.9 GM/dL (11.7-16.9)
[2020-07-25] MEDS ORDERED: EPOETIN ALFA 20,000 UNIT/1 ML VIAL IVPUSH ONE (09:45)
[2020-07-25] MEDS: CARVEDILOL 3.125 MG TABLET (FP) PO SCH ×2 (10:00→22:14)
[2020-07-25] MEDS ORDERED: MEROPENEM 1 GM VIAL (RESTRICTED TO ID) IVPB ONE (10:07)
[2020-07-25] MEDS ORDERED: DEXTROSE 5%-WATER 100 ML IVPB ONE (10:08)
[2020-07-25 10:14] LABS: ALBUMIN 1.4 g/dl (3.4-5.0); BLOOD UREA NITROGEN 50.8 mg/dL (7-18)
[2020-07-25 10:17] LABS: CREATININE 2.9 mg/dL (0.55-1.3)
[2020-07-25 10:18] LABS: BILIRUBIN,TOTAL 0.5 mg/dL (0.2-1)
[2020-07-25] MEDS: levETIRAcetam 500 MG/5 ML INJECTION VIAL IVPB SCH ×2 (10:19→17:15)
[2020-07-25] MEDS: MEROPENEM 1 GM in DEXTROSE 5%-WATER 100 ML IVPB SCH (10:54)
[2020-07-25] MEDS: PANTOPRAZOLE SODIUM 40 MG VIAL IVPUSH SCH (11:24)
[2020-07-25] MEDS: SODIUM HYPOCHLORITE 0.25%- 473 ML BULK BOTTLE TP SCH (14:00)
[2020-07-25] MEDS ORDERED: PT OWN MED DRAWER 7, Y5N ONE (16:29)
[2020-07-25] MEDS: AMINO ACIDS 4.25%/D5W 1,000 ML IV SCH (18:32)
[2020-07-26] MEDS ORDERED: PT OWN MED DRAWER 7, Y5N ONE ×2 (02:35→05:57)
[2020-07-26] MEDS: LINEZOLID 600 MG PREMIX BAG 600 MG/300 ML BAG IVPB SCH ×2 (02:36→14:17)
[2020-07-26] MEDS: AMINO ACIDS 4.25%/D5W 1,000 ML IV SCH ×2 (04:35→18:39)
[2020-07-26] MEDS: BANATROL PLUS POWDER PACKET PEG SCH ×3 (05:20→21:20)
[2020-07-26 08:11] LABS: BASO % 0.6 % (0-2.0); EOS % 3.4 % (0-4.5); HEMATOCRIT 23.9 % (35.4-49); HEMOGLOBIN 7.2 GM/dL (11.7-16.9); LYMPH % 18.1 % (8-40); MCH 25.7 pg (25.7-33.7); MCHC 29.9 g/dl (32.0-35.9); MEAN CELL VOLUME 85.9 fl (80-96); MONO % 7.4 % (3.8-10.2); NEUT % 70.5 % (42.8-82.8); PLATELET COUNT 352 K/MM3 (134-434); RBC 2.78 M/mm3 (4.00-5.60); RDW 17.2 % (11.9-15.9); WHITE BLOOD COUNT 9.5 K/mm3 (4.0-10.0)
[2020-07-26 08:20] LABS: CALCIUM 9.7 mg/dL (8.5-10.1)
[2020-07-26 08:21] LABS: ALBUMIN 1.4 g/dl (3.4-5.0)
[2020-07-26 08:24] LABS: CREATININE 2.1 mg/dL (0.55-1.3)
[2020-07-26 08:25] LABS: BILIRUBIN,TOTAL 0.6 mg/dL (0.2-1)
[2020-07-26 08:26] LABS: TOT PROT 6.1 g/dl (6.4-8.2)
[2020-07-26 08:27] LABS: BLOOD UREA NITROGEN 25.9 mg/dL (7-18)
[2020-07-26] MEDS ORDERED: MEROPENEM 1 GM VIAL (RESTRICTED TO ID) IVPB ONE (08:50)
[2020-07-26] MEDS ORDERED: DEXTROSE 5%-WATER 100 ML IVPB ONE (08:50)
[2020-07-26] MEDS: PANTOPRAZOLE SODIUM 40 MG VIAL IVPUSH SCH (09:15)
[2020-07-26] MEDS: AMINO ACIDS/PROTEIN HYDROLYS 30 ML LIQUID.PKT GT SCH ×2 (09:22→17:43)
[2020-07-26] MEDS: levETIRAcetam 500 MG/5 ML INJECTION VIAL IVPB SCH (09:22)
[2020-07-26] MEDS: CARVEDILOL 3.125 MG TABLET (FP) PO SCH ×2 (09:22→21:20)
[2020-07-26] MEDS: MEROPENEM 1 GM in DEXTROSE 5%-WATER 100 ML IVPB SCH (10:58)
[2020-07-26] MEDS: SODIUM HYPOCHLORITE 0.25%- 473 ML BULK BOTTLE TP SCH (14:18)
[2020-07-27] MEDS ORDERED: LINEZOLID 100 MG/5 ML BTL (RESTRICTED TO ID) NGT ONE (02:30)
[2020-07-27] MEDS: BANATROL PLUS POWDER PACKET PEG SCH ×3 (06:26→21:34)
[2020-07-27] MEDS ORDERED: MEROPENEM 1 GM VIAL (RESTRICTED TO ID) IVPB ONE (10:56)
[2020-07-27] MEDS ORDERED: DEXTROSE 5%-WATER 100 ML IVPB ONE (10:56)
[2020-07-27] MEDS: PANTOPRAZOLE SODIUM 40 MG VIAL IVPUSH SCH (11:00)
[2020-07-27] MEDS: MEROPENEM 1 GM in DEXTROSE 5%-WATER 100 ML IVPB SCH (11:02)
[2020-07-27] MEDS: AMINO ACIDS/PROTEIN HYDROLYS 30 ML LIQUID.PKT GT SCH ×2 (11:02→18:08)
[2020-07-27] MEDS: CARVEDILOL 3.125 MG TABLET (FP) PO SCH ×2 (11:19→21:34)
[2020-07-27] MEDS: levETIRAcetam 500 MG/5 ML INJECTION VIAL IVPB SCH ×2 (12:19→18:08)
[2020-07-27] MEDS: SODIUM HYPOCHLORITE 0.25%- 473 ML BULK BOTTLE TP SCH (14:00)
[2020-07-27] MEDS: IBUPROFEN 800 MG/8 ML IJ IVPB PRN (14:12)
[2020-07-27] MEDS: LINEZOLID 600 MG PREMIX BAG 600 MG/300 ML BAG IVPB SCH (14:47)
[2020-07-27 16:22] LABS: HEMATOCRIT 22.3 % (35.4-49); MCH 25.6 pg (25.7-33.7); MEAN CELL VOLUME 85.2 fl (80-96); MEAN PLT VOLUME 7.1 fl (7.5-11.1); PLATELET COUNT 355 K/MM3 (134-434); RBC 2.62 M/mm3 (4.00-5.60); RDW 17.3 % (11.9-15.9); WHITE BLOOD COUNT 11.8 K/mm3 (4.0-10.0)
[2020-07-27 16:27] LABS: HEMOGLOBIN 6.7 GM/dL (11.7-16.9)
[2020-07-27] MEDS ORDERED: MORPHINE SULFATE 2 MG/ML VIAL IM PRN (16:36)
[2020-07-27] MEDS ORDERED: SODIUM CHLORIDE 250 ML IV PRN (16:51)
[2020-07-27] MEDS ORDERED: FENTANYL PATCH WASTE MC PRN (16:52)
[2020-07-27] MEDS ORDERED: IRON SUCROSE INJECTION 100 MG in SODIUM CHLORIDE 100 ML IVPB ONE (17:00)
[2020-07-27] MEDS ORDERED: EPOETIN ALFA 20,000 UNIT/1 ML VIAL IVPUSH ONE (17:00)
[2020-07-27] MEDS: fentaNYL 12mcg/hr PATCH.TD72 TD SCH (18:07)
[2020-07-27] MEDS: AMINO ACIDS 4.25%/D5W 1,000 ML IV SCH (19:05)
[2020-07-27] MEDS ORDERED: PT OWN MED DRAWER 7, Y5N ONE (21:26)
[2020-07-28] MEDS ORDERED: PT OWN MED DRAWER 7, Y5N ONE ×3 (01:51→13:49)
[2020-07-28] MEDS: LINEZOLID 600 MG PREMIX BAG 600 MG/300 ML BAG IVPB SCH ×2 (02:14→14:46)
[2020-07-28] MEDS: IBUPROFEN 800 MG/8 ML IJ IVPB PRN ×2 (03:31→16:53)
[2020-07-28] MEDS: BANATROL PLUS POWDER PACKET PEG SCH ×3 (05:21→21:18)
[2020-07-28] MEDS ORDERED: DEXTROSE 5%-WATER 100 ML IVPB ONE (09:24)
[2020-07-28] MEDS ORDERED: MEROPENEM 1 GM VIAL (RESTRICTED TO ID) IVPB ONE (09:24)
[2020-07-28] MEDS: SODIUM HYPOCHLORITE 0.25%- 473 ML BULK BOTTLE TP SCH (09:50)
[2020-07-28] MEDS: AMINO ACIDS/PROTEIN HYDROLYS 30 ML LIQUID.PKT GT SCH ×2 (09:51→16:59)
[2020-07-28] MEDS: COLLAGENASE CLOSTRIDIUM HIST. 30 GRAMS TUBE TP SCH (09:51)
[2020-07-28 11:42] LABS: BASO % 0.9 % (0-2.0); EOS % 5.8 % (0-4.5); HEMATOCRIT 24.4 % (35.4-49); HEMOGLOBIN 7.5 GM/dL (11.7-16.9); LYMPH % 12.7 % (8-40); MCH 26.3 pg (25.7-33.7); MCHC 30.7 g/dl (32.0-35.9); MEAN CELL VOLUME 85.7 fl (80-96); MEAN PLT VOLUME 7.3 fl (7.5-11.1); MONO % 4.3 % (3.8-10.2); NEUT % 76.3 % (42.8-82.8); PLATELET COUNT 363 K/MM3 (134-434); RBC 2.85 M/mm3 (4.00-5.60); RDW 17.3 % (11.9-15.9); WHITE BLOOD COUNT 11.8 K/mm3 (4.0-10.0)
[2020-07-28 12:13] LABS: POTASSIUM 3.6 mmol/L (3.5-5.1)
[2020-07-28 12:16] LABS: CALCIUM 9.2 mg/dL (8.5-10.1)
[2020-07-28 12:17] LABS: ALBUMIN 1.5 g/dl (3.4-5.0); BLOOD UREA NITROGEN 28.2 mg/dL (7-18)
[2020-07-28 12:20] LABS: CREATININE 2.4 mg/dL (0.55-1.3)
[2020-07-28 12:22] LABS: BILIRUBIN,TOTAL 0.7 mg/dL (0.2-1); TOT PROT 6.6 g/dl (6.4-8.2)
[2020-07-28] MEDS: PANTOPRAZOLE SODIUM 40 MG VIAL IVPUSH SCH (12:27)
[2020-07-28] MEDS: MEROPENEM 1 GM in DEXTROSE 5%-WATER 100 ML IVPB SCH (12:27)
[2020-07-28] MEDS: levETIRAcetam 500 MG/5 ML INJECTION VIAL IVPB SCH (13:08)
[2020-07-28] MEDS ORDERED: MINERAL OIL/PETROLAT/WATER TOPICAL CREAM 454 GM JAR TP PRN (13:51)
[2020-07-29] MEDS: LINEZOLID 600 MG PREMIX BAG 600 MG/300 ML BAG IVPB SCH ×2 (02:28→15:39)
[2020-07-29] MEDS: BANATROL PLUS POWDER PACKET PEG SCH ×3 (05:36→22:08)
[2020-07-29 09:41] LABS: BASO % 0.3 % (0-2.0); EOS % 6.1 % (0-4.5); HEMATOCRIT 24.4 % (35.4-49); HEMOGLOBIN 7.3 GM/dL (11.7-16.9); LYMPH % 15.6 % (8-40); MCH 25.5 pg (25.7-33.7); MEAN CELL VOLUME 84.8 fl (80-96); MEAN PLT VOLUME 6.9 fl (7.5-11.1); MONO % 6.3 % (3.8-10.2); NEUT % 71.7 % (42.8-82.8); PLATELET COUNT 393 K/MM3 (134-434); RBC 2.88 M/mm3 (4.00-5.60); RDW 17.8 % (11.9-15.9); WHITE BLOOD COUNT 9.6 K/mm3 (4.0-10.0)
[2020-07-29] MEDS: AMINO ACIDS/PROTEIN HYDROLYS 30 ML LIQUID.PKT GT SCH ×2 (11:15→18:50)
[2020-07-29] MEDS: PANTOPRAZOLE SODIUM 40 MG VIAL IVPUSH SCH (11:15)
[2020-07-29] MEDS: MEROPENEM 1 GM in DEXTROSE 5%-WATER 100 ML IVPB SCH (11:19)
[2020-07-29] MEDS: levETIRAcetam 500 MG/5 ML INJECTION VIAL IVPB SCH (12:31)
[2020-07-29] MEDS: SODIUM HYPOCHLORITE 0.25%- 473 ML BULK BOTTLE TP SCH (15:39)
[2020-07-29] MEDS: COLLAGENASE CLOSTRIDIUM HIST. 30 GRAMS TUBE TP SCH (15:40)
[2020-07-30] MEDS: LINEZOLID 600 MG PREMIX BAG 600 MG/300 ML BAG IVPB SCH ×2 (02:49→18:05)
[2020-07-30] MEDS: BANATROL PLUS POWDER PACKET PEG SCH ×3 (05:39→21:37)
[2020-07-30] MEDS ORDERED: SODIUM CHLORIDE 250 ML IV PRN (06:45)
[2020-07-30] MEDS ORDERED: EPOETIN ALFA 20,000 UNIT/1 ML VIAL IVPUSH ONE (07:00)
[2020-07-30 08:19] LABS: BASO % 0.6 % (0-2.0); EOS % 3.2 % (0-4.5); HEMATOCRIT 22.3 % (35.4-49); LYMPH % 15.4 % (8-40); MCH 25.3 pg (25.7-33.7); MCHC 30.1 g/dl (32.0-35.9); MEAN CELL VOLUME 84.1 fl (80-96); MEAN PLT VOLUME 7.2 fl (7.5-11.1); MONO % 5.1 % (3.8-10.2); NEUT % 75.7 % (42.8-82.8); PLATELET COUNT 347 K/MM3 (134-434); RBC 2.65 M/mm3 (4.00-5.60); RDW 17.5 % (11.9-15.9); WHITE BLOOD COUNT 11.6 K/mm3 (4.0-10.0)
[2020-07-30 08:36] LABS: HEMOGLOBIN 6.7 GM/dL (11.7-16.9)
[2020-07-30 08:41] LABS: CHLORIDE 100 mmol/L (98-107); POTASSIUM 4.3 mmol/L (3.5-5.1); SODIUM 136 mmol/L (136-145)
[2020-07-30 08:45] LABS: CALCIUM 9.1 mg/dL (8.5-10.1)
[2020-07-30 08:46] LABS: ALBUMIN 1.4 g/dl (3.4-5.0); ANION GAP 10 MMOL/L (8-16); BLOOD UREA NITROGEN 47.6 mg/dL (7-18); CO2 27 mmol/L (21-32); GLUCOSE,RANDOM 84 mg/dL (74-106)
[2020-07-30 08:49] LABS: CREATININE 3.4 mg/dL (0.55-1.3); SGOT/AST 21 U/L (15-37); SGPT/ALT < 6 U/L (13-61)
[2020-07-30 08:50] LABS: BILIRUBIN,TOTAL 0.6 mg/dL (0.2-1); TOT PROT 5.9 g/dl (6.4-8.2)
[2020-07-30 08:52] LABS: ALK PHOS 97 U/L (45-117)
[2020-07-30] MEDS ORDERED: MEROPENEM 1 GM VIAL (RESTRICTED TO ID) IVPB ONE (12:25)
[2020-07-30] MEDS ORDERED: DEXTROSE 5%-WATER 100 ML IVPB ONE (12:25)
[2020-07-30] MEDS: levETIRAcetam 500 MG/5 ML INJECTION VIAL IVPB SCH ×2 (12:48→19:22)
[2020-07-30] MEDS: SODIUM HYPOCHLORITE 0.25%- 473 ML BULK BOTTLE TP SCH (12:48)
[2020-07-30] MEDS: AMINO ACIDS/PROTEIN HYDROLYS 30 ML LIQUID.PKT GT SCH ×2 (12:48→17:52)
[2020-07-30] MEDS: PANTOPRAZOLE SODIUM 40 MG VIAL IVPUSH SCH (12:49)
[2020-07-30] MEDS: MEROPENEM 1 GM in DEXTROSE 5%-WATER 100 ML IVPB SCH (12:49)
[2020-07-30] MEDS: COLLAGENASE CLOSTRIDIUM HIST. 30 GRAMS TUBE TP SCH (12:49)
[2020-07-30] MEDS: fentaNYL 12mcg/hr PATCH.TD72 TD SCH (17:42)
[2020-07-30] MEDS ORDERED: PT OWN MED DRAWER 7, Y5N ONE (21:34)
[2020-07-31] MEDS: LINEZOLID 600 MG PREMIX BAG 600 MG/300 ML BAG IVPB SCH ×2 (03:04→15:50)
[2020-07-31] MEDS: BANATROL PLUS POWDER PACKET PEG SCH ×3 (06:03→22:09)
[2020-07-31] MEDS: AMINO ACIDS/PROTEIN HYDROLYS 30 ML LIQUID.PKT GT SCH ×2 (08:40→17:17)
[2020-07-31] MEDS: SODIUM HYPOCHLORITE 0.25%- 473 ML BULK BOTTLE TP SCH (10:46)
[2020-07-31] MEDS: PANTOPRAZOLE SODIUM 40 MG VIAL IVPUSH SCH (10:46)
[2020-07-31] MEDS: levETIRAcetam 500 MG/5 ML INJECTION VIAL IVPB SCH (10:46)
[2020-07-31] MEDS: COLLAGENASE CLOSTRIDIUM HIST. 30 GRAMS TUBE TP SCH (10:47)
[2020-07-31 11:00] LABS: BASO % 0.4 % (0-2.0); EOS % 2.2 % (0-4.5); HEMATOCRIT 24.9 % (35.4-49); HEMOGLOBIN 7.8 GM/dL (11.7-16.9); LYMPH % 15.6 % (8-40); MCH 26.7 pg (25.7-33.7); MCHC 31.2 g/dl (32.0-35.9); MEAN CELL VOLUME 85.5 fl (80-96); MEAN PLT VOLUME 6.9 fl (7.5-11.1); MONO % 5.9 % (3.8-10.2); NEUT % 75.9 % (42.8-82.8); PLATELET COUNT 335 K/MM3 (134-434); RBC 2.91 M/mm3 (4.00-5.60); RDW 17.6 % (11.9-15.9); WHITE BLOOD COUNT 12.8 K/mm3 (4.0-10.0)
[2020-07-31 11:27] LABS: CHLORIDE 101 mmol/L (98-107); POTASSIUM 3.3 mmol/L (3.5-5.1); SODIUM 139 mmol/L (136-145)
[2020-07-31 11:29] LABS: CALCIUM 9.5 mg/dL (8.5-10.1)
[2020-07-31 11:30] LABS: ALBUMIN 1.5 g/dl (3.4-5.0); ANION GAP 7 MMOL/L (8-16); BLOOD UREA NITROGEN 32.9 mg/dL (7-18); CO2 31 mmol/L (21-32); GLUCOSE,RANDOM 87 mg/dL (74-106)
[2020-07-31 11:33] LABS: CREATININE 2.6 mg/dL (0.55-1.3); SGOT/AST 6 U/L (15-37); SGPT/ALT < 6 U/L (13-61)
[2020-07-31 11:34] LABS: BILIRUBIN,TOTAL 0.5 mg/dL (0.2-1); TOT PROT 6.1 g/dl (6.4-8.2)
[2020-07-31 11:36] LABS: ALK PHOS 100 U/L (45-117)
[2020-07-31] MEDS: IBUPROFEN 800 MG/8 ML IJ IVPB PRN (12:38)
[2020-07-31] MEDS ORDERED: PT OWN MED DRAWER 7, Y5N ONE ×2 (15:47→22:07)
[2020-07-31] MEDS: MEROPENEM 1 GM in DEXTROSE 5%-WATER 100 ML IVPB SCH (17:17)
[2020-07-31] MEDS ORDERED: DEXTROSE 5%-WATER 100 ML IVPB ONE (17:17)
[2020-07-31] MEDS ORDERED: MEROPENEM 1 GM VIAL (RESTRICTED TO ID) IVPB ONE (17:17)
[2020-07-31] MEDS ORDERED: SODIUM CHLORIDE 250 ML IV STA (22:42)
[2020-08-01] MEDS: LINEZOLID 600 MG PREMIX BAG 600 MG/300 ML BAG IVPB SCH ×2 (03:18→16:01)
[2020-08-01] MEDS: BANATROL PLUS POWDER PACKET PEG SCH ×3 (06:07→21:42)
[2020-08-01] MEDS: AMINO ACIDS/PROTEIN HYDROLYS 30 ML LIQUID.PKT GT SCH ×2 (10:10→17:49)
[2020-08-01] MEDS: SODIUM HYPOCHLORITE 0.25%- 473 ML BULK BOTTLE TP SCH (10:10)
[2020-08-01] MEDS: PANTOPRAZOLE SODIUM 40 MG VIAL IVPUSH SCH (10:10)
[2020-08-01] MEDS: levETIRAcetam 500 MG/5 ML INJECTION VIAL IVPB SCH ×2 (10:11→17:48)
[2020-08-01] MEDS: COLLAGENASE CLOSTRIDIUM HIST. 30 GRAMS TUBE TP SCH (10:12)
[2020-08-01] MEDS: IBUPROFEN 800 MG/8 ML IJ IVPB PRN ×2 (10:26→21:42)
[2020-08-01 11:04] LABS: BASO % 0.4 % (0-2.0); EOS % 4.6 % (0-4.5); HEMATOCRIT 26.5 % (35.4-49); HEMOGLOBIN 8.3 GM/dL (11.7-16.9); LYMPH % 15.1 % (8-40); MCHC 31.3 g/dl (32.0-35.9); MEAN CELL VOLUME 86.4 fl (80-96); MONO % 6.5 % (3.8-10.2); NEUT % 73.4 % (42.8-82.8); PLATELET COUNT 328 K/MM3 (134-434); RBC 3.07 M/mm3 (4.00-5.60); RDW 17.5 % (11.9-15.9); WHITE BLOOD COUNT 9.9 K/mm3 (4.0-10.0)
[2020-08-01 11:08] LABS: CHLORIDE 99 mmol/L (98-107); POTASSIUM 3.1 mmol/L (3.5-5.1); SODIUM 137 mmol/L (136-145)
[2020-08-01 11:10] LABS: CALCIUM 9.4 mg/dL (8.5-10.1)
[2020-08-01 11:11] LABS: ALBUMIN 1.5 g/dl (3.4-5.0); ANION GAP 9 MMOL/L (8-16); BLOOD UREA NITROGEN 43.6 mg/dL (7-18); CO2 29 mmol/L (21-32); GLUCOSE,RANDOM 83 mg/dL (74-106)
[2020-08-01 11:14] LABS: CREATININE 3.1 mg/dL (0.55-1.3); SGOT/AST 11 U/L (15-37); SGPT/ALT < 6 U/L (13-61)
[2020-08-01 11:16] LABS: BILIRUBIN,TOTAL 0.8 mg/dL (0.2-1)
[2020-08-01 11:17] LABS: ALK PHOS 102 U/L (45-117)
[2020-08-01] MEDS ORDERED: EPOETIN ALFA 20,000 UNIT/1 ML VIAL IVPUSH ONE (11:30)
[2020-08-01] MEDS ORDERED: SODIUM CHLORIDE 250 ML IV PRN (14:13)
[2020-08-01] MEDS ORDERED: PT OWN MED DRAWER 7, Y5N ONE ×2 (15:55→20:56)
[2020-08-01] MEDS ORDERED: DEXTROSE 5%-WATER 100 ML IVPB ONE (17:46)
[2020-08-01] MEDS ORDERED: MEROPENEM 1 GM VIAL (RESTRICTED TO ID) IVPB ONE (17:46)
[2020-08-01] MEDS: MEROPENEM 1 GM in DEXTROSE 5%-WATER 100 ML IVPB SCH (17:49)
[2020-08-02] MEDS ORDERED: PT OWN MED DRAWER 7, Y5N ONE ×2 (02:19→05:05)
[2020-08-02] MEDS: LINEZOLID 600 MG PREMIX BAG 600 MG/300 ML BAG IVPB SCH ×2 (02:24→15:37)
[2020-08-02] MEDS: BANATROL PLUS POWDER PACKET PEG SCH ×3 (05:08→21:21)
[2020-08-02 08:24] LABS: BASO % 0.6 % (0-2.0); EOS % 6.5 % (0-4.5); HEMATOCRIT 26.2 % (35.4-49); HEMOGLOBIN 8.2 GM/dL (11.7-16.9); MCH 27.1 pg (25.7-33.7); MCHC 31.2 g/dl (32.0-35.9); MEAN CELL VOLUME 86.8 fl (80-96); MEAN PLT VOLUME 6.9 fl (7.5-11.1); MONO % 7.1 % (3.8-10.2); NEUT % 69.8 % (42.8-82.8); PLATELET COUNT 329 K/MM3 (134-434); RBC 3.02 M/mm3 (4.00-5.60); RDW 17.7 % (11.9-15.9); WHITE BLOOD COUNT 7.8 K/mm3 (4.0-10.0)
[2020-08-02 08:44] LABS: CHLORIDE 101 mmol/L (98-107); POTASSIUM 3.2 mmol/L (3.5-5.1); SODIUM 139 mmol/L (136-145)
[2020-08-02 08:47] LABS: ALBUMIN 1.6 g/dl (3.4-5.0); ANION GAP 9 MMOL/L (8-16); BLOOD UREA NITROGEN 29.5 mg/dL (7-18); CALCIUM 9.6 mg/dL (8.5-10.1); CO2 29 mmol/L (21-32); GLUCOSE,RANDOM 86 mg/dL (74-106)
[2020-08-02 08:50] LABS: CREATININE 2.2 mg/dL (0.55-1.3); SGOT/AST 8 U/L (15-37); SGPT/ALT < 6 U/L (13-61)
[2020-08-02 08:52] LABS: BILIRUBIN,TOTAL 0.8 mg/dL (0.2-1); TOT PROT 6.2 g/dl (6.4-8.2)
[2020-08-02 08:53] LABS: ALK PHOS 98 U/L (45-117)
[2020-08-02] MEDS ORDERED: SODIUM CHLORIDE 250 ML IV PRN (10:47)
[2020-08-02] MEDS: AMINO ACIDS/PROTEIN HYDROLYS 30 ML LIQUID.PKT GT SCH ×2 (11:32→16:57)
[2020-08-02] MEDS: PANTOPRAZOLE SODIUM 40 MG VIAL IVPUSH SCH (11:32)
[2020-08-02] MEDS: SODIUM HYPOCHLORITE 0.25%- 473 ML BULK BOTTLE TP SCH (11:33)
[2020-08-02] MEDS: levETIRAcetam 500 MG/5 ML INJECTION VIAL IVPB SCH (11:33)
[2020-08-02] MEDS: COLLAGENASE CLOSTRIDIUM HIST. 30 GRAMS TUBE TP SCH (11:33)
[2020-08-02] MEDS ORDERED: MEROPENEM 1 GM VIAL (RESTRICTED TO ID) IVPB ONE (16:49)
[2020-08-02] MEDS ORDERED: DEXTROSE 5%-WATER 100 ML IVPB ONE (16:49)
[2020-08-02] MEDS: fentaNYL 12mcg/hr PATCH.TD72 TD SCH (16:55)
[2020-08-02] MEDS: MEROPENEM 1 GM in DEXTROSE 5%-WATER 100 ML IVPB SCH (16:57)
[2020-08-03] MEDS ORDERED: PT OWN MED DRAWER 7, Y5N ONE ×7 (02:26→21:13)
[2020-08-03] MEDS: LINEZOLID 600 MG PREMIX BAG 600 MG/300 ML BAG IVPB SCH ×2 (02:27→15:44)
[2020-08-03] MEDS: IBUPROFEN 800 MG/8 ML IJ IVPB PRN (04:11)
[2020-08-03] MEDS: BANATROL PLUS POWDER PACKET PEG SCH ×3 (05:31→21:17)
[2020-08-03] MEDS ORDERED: EPOETIN ALFA 10,000 UNIT/1 ML VIAL SQ ONE (08:00)
[2020-08-03 08:54] LABS: CHLORIDE 98 mmol/L (98-107); POTASSIUM 3.3 mmol/L (3.5-5.1); SODIUM 136 mmol/L (136-145)
[2020-08-03 08:59] LABS: ALBUMIN 1.5 g/dl (3.4-5.0); ANION GAP 7 MMOL/L (8-16); CALCIUM 9.4 mg/dL (8.5-10.1); CO2 31 mmol/L (21-32)
[2020-08-03 09:00] LABS: BLOOD UREA NITROGEN 39.8 mg/dL (7-18); GLUCOSE,RANDOM 94 mg/dL (74-106)
[2020-08-03 09:02] LABS: SGOT/AST 6 U/L (15-37)
[2020-08-03 09:03] LABS: CREATININE 2.7 mg/dL (0.55-1.3)
[2020-08-03 09:04] LABS: BILIRUBIN,TOTAL 0.5 mg/dL (0.2-1); TOT PROT 5.7 g/dl (6.4-8.2)
[2020-08-03 09:05] LABS: ALK PHOS 96 U/L (45-117)
[2020-08-03 09:12] LABS: SGPT/ALT < 6 U/L (13-61)
[2020-08-03] MEDS: AMINO ACIDS/PROTEIN HYDROLYS 30 ML LIQUID.PKT GT SCH ×2 (11:35→18:14)
[2020-08-03] MEDS: levETIRAcetam 500 MG/5 ML INJECTION VIAL IVPB SCH ×2 (11:36→18:13)
[2020-08-03] MEDS: PANTOPRAZOLE SODIUM 40 MG VIAL IVPUSH SCH (11:37)
[2020-08-03] MEDS: SODIUM HYPOCHLORITE 0.25%- 473 ML BULK BOTTLE TP SCH (13:00)
[2020-08-03] MEDS: COLLAGENASE CLOSTRIDIUM HIST. 30 GRAMS TUBE TP SCH (13:00)
[2020-08-03] MEDS ORDERED: DEXTROSE 5%-WATER 100 ML IVPB ONE (17:06)
[2020-08-03] MEDS ORDERED: MEROPENEM 1 GM VIAL (RESTRICTED TO ID) IVPB ONE (17:06)
[2020-08-03] MEDS: MEROPENEM 1 GM in DEXTROSE 5%-WATER 100 ML IVPB SCH (18:13)
[2020-08-04] MEDS ORDERED: PT OWN MED DRAWER 7, Y5N ONE ×5 (02:36→21:08)
[2020-08-04] MEDS: LINEZOLID 600 MG PREMIX BAG 600 MG/300 ML BAG IVPB SCH ×2 (02:39→15:36)
[2020-08-04] MEDS: IBUPROFEN 800 MG/8 ML IJ IVPB PRN ×2 (04:00→15:37)
[2020-08-04] MEDS: BANATROL PLUS POWDER PACKET PEG SCH ×3 (06:44→22:18)
[2020-08-04] MEDS ORDERED: FENTANYL PATCH WASTE TD PRN (08:09)
[2020-08-04] MEDS: AMINO ACIDS/PROTEIN HYDROLYS 30 ML LIQUID.PKT GT SCH ×2 (11:09→17:30)
[2020-08-04] MEDS: fentaNYL 25mcg/hr PATCH.TD72 TD SCH (11:09)
[2020-08-04] MEDS: levETIRAcetam 500 MG/5 ML INJECTION VIAL IVPB SCH (11:13)
[2020-08-04] MEDS: SODIUM HYPOCHLORITE 0.25%- 473 ML BULK BOTTLE TP SCH (11:13)
[2020-08-04] MEDS: COLLAGENASE CLOSTRIDIUM HIST. 30 GRAMS TUBE TP SCH (11:13)
[2020-08-04] MEDS: PANTOPRAZOLE SODIUM 40 MG VIAL IVPUSH SCH (11:13)
[2020-08-04 12:17] LABS: BASO % 0.7 % (0-2.0); EOS % 3.1 % (0-4.5); HEMATOCRIT 22.7 % (35.4-49); HEMOGLOBIN 7.1 GM/dL (11.7-16.9); LYMPH % 22.2 % (8-40); MCH 27.4 pg (25.7-33.7); MCHC 31.3 g/dl (32.0-35.9); MEAN CELL VOLUME 87.5 fl (80-96); MEAN PLT VOLUME 6.8 fl (7.5-11.1); MONO % 7.7 % (3.8-10.2); NEUT % 66.3 % (42.8-82.8); PLATELET COUNT 302 K/MM3 (134-434); RBC 2.59 M/mm3 (4.00-5.60); RDW 18.2 % (11.9-15.9); WHITE BLOOD COUNT 7.7 K/mm3 (4.0-10.0)
[2020-08-04 12:24] LABS: POTASSIUM 3.6 mmol/L (3.5-5.1)
[2020-08-04 12:25] LABS: CALCIUM 9.7 mg/dL (8.5-10.1)
[2020-08-04 12:26] LABS: BLOOD UREA NITROGEN 27.1 mg/dL (7-18)
[2020-08-04 12:29] LABS: CREATININE 2.2 mg/dL (0.55-1.3)
[2020-08-04] MEDS ORDERED: DEXTROSE 5%-WATER 100 ML IVPB ONE (16:32)
[2020-08-04] MEDS ORDERED: MEROPENEM 1 GM VIAL (RESTRICTED TO ID) IVPB ONE (16:32)
[2020-08-04] MEDS: MEROPENEM 1 GM in DEXTROSE 5%-WATER 100 ML IVPB SCH (17:30)
[2020-08-05] MEDS: LINEZOLID 600 MG PREMIX BAG 600 MG/300 ML BAG IVPB SCH ×2 (01:57→14:52)
[2020-08-05] MEDS: BANATROL PLUS POWDER PACKET PEG SCH ×3 (05:18→21:17)
[2020-08-05] MEDS ORDERED: PT OWN MED DRAWER 7, Y5N ONE ×3 (05:26→21:13)
[2020-08-05 07:49] LABS: BASO % 0.8 % (0-2.0); EOS % 3.1 % (0-4.5); HEMATOCRIT 25.5 % (35.4-49); HEMOGLOBIN 7.9 GM/dL (11.7-16.9); LYMPH % 15.3 % (8-40); MCH 26.6 pg (25.7-33.7); MEAN PLT VOLUME 6.4 fl (7.5-11.1); MONO % 8.3 % (3.8-10.2); NEUT % 72.5 % (42.8-82.8); PLATELET COUNT 335 K/MM3 (134-434); RBC 2.97 M/mm3 (4.00-5.60); RDW 18.1 % (11.9-15.9); WHITE BLOOD COUNT 9.9 K/mm3 (4.0-10.0)
[2020-08-05 08:25] LABS: POTASSIUM 3.6 mmol/L (3.5-5.1)
[2020-08-05 09:01] LABS: CALCIUM 10.3 mg/dL (8.5-10.1)
[2020-08-05 09:02] LABS: BLOOD UREA NITROGEN 34.3 mg/dL (7-18)
[2020-08-05 09:05] LABS: CREATININE 2.9 mg/dL (0.55-1.3)
[2020-08-05] MEDS: AMINO ACIDS/PROTEIN HYDROLYS 30 ML LIQUID.PKT GT SCH ×2 (10:32→17:16)
[2020-08-05] MEDS: PANTOPRAZOLE SODIUM 40 MG VIAL IVPUSH SCH (10:33)
[2020-08-05] MEDS: levETIRAcetam 500 MG/5 ML INJECTION VIAL IVPB SCH (10:33)
[2020-08-05] MEDS: SODIUM HYPOCHLORITE 0.25%- 473 ML BULK BOTTLE TP SCH (10:33)
[2020-08-05] MEDS: COLLAGENASE CLOSTRIDIUM HIST. 30 GRAMS TUBE TP SCH (10:35)
[2020-08-05] MEDS ORDERED: MEROPENEM 1 GM VIAL (RESTRICTED TO ID) IVPB ONE (17:13)
[2020-08-05] MEDS ORDERED: DEXTROSE 5%-WATER 100 ML IVPB ONE (17:15)
[2020-08-05] MEDS: MEROPENEM 1 GM in DEXTROSE 5%-WATER 100 ML IVPB SCH (17:16)
[2020-08-06] MEDS ORDERED: PT OWN MED DRAWER 7, Y5N ONE ×2 (02:33→15:37)
[2020-08-06] MEDS: LINEZOLID 600 MG PREMIX BAG 600 MG/300 ML BAG IVPB SCH (02:35)
[2020-08-06] MEDS: BANATROL PLUS POWDER PACKET PEG SCH ×3 (05:35→23:13)
[2020-08-06] MEDS ORDERED: EPOETIN ALFA-EPBX 10,000 UNIT/ML VIAL IVPUSH ONE (08:00)
[2020-08-06 08:45] LABS: BASO % 0.7 % (0-2.0); EOS % 4.7 % (0-4.5); HEMATOCRIT 22.4 % (35.4-49); LYMPH % 16.4 % (8-40); MCH 26.6 pg (25.7-33.7); MCHC 30.9 g/dl (32.0-35.9); MEAN CELL VOLUME 86.1 fl (80-96); MEAN PLT VOLUME 6.5 fl (7.5-11.1); MONO % 7.5 % (3.8-10.2); NEUT % 70.7 % (42.8-82.8); PLATELET COUNT 313 K/MM3 (134-434); RBC 2.61 M/mm3 (4.00-5.60); RDW 18.5 % (11.9-15.9); WHITE BLOOD COUNT 8.3 K/mm3 (4.0-10.0)
[2020-08-06 09:03] LABS: POTASSIUM 3.8 mmol/L (3.5-5.1)
[2020-08-06 09:04] LABS: CALCIUM 9.5 mg/dL (8.5-10.1)
[2020-08-06 09:05] LABS: BLOOD UREA NITROGEN 47.2 mg/dL (7-18)
[2020-08-06 09:09] LABS: CREATININE 3.1 mg/dL (0.55-1.3)
[2020-08-06 09:21] LABS: HEMOGLOBIN 6.9 GM/dL (11.7-16.9)
[2020-08-06] MEDS: IBUPROFEN 800 MG/8 ML IJ IVPB PRN (10:41)
[2020-08-06] MEDS: AMINO ACIDS/PROTEIN HYDROLYS 30 ML LIQUID.PKT GT SCH ×2 (10:41→19:01)
[2020-08-06] MEDS: PANTOPRAZOLE SODIUM 40 MG VIAL IVPUSH SCH (10:41)
[2020-08-06] MEDS: SODIUM HYPOCHLORITE 0.25%- 473 ML BULK BOTTLE TP SCH (11:07)
[2020-08-06] MEDS: levETIRAcetam 500 MG/5 ML INJECTION VIAL IVPB SCH ×2 (11:08→19:01)
[2020-08-07] MEDS: IBUPROFEN 800 MG/8 ML IJ IVPB PRN (04:57)
[2020-08-07] MEDS: BANATROL PLUS POWDER PACKET PEG SCH ×3 (04:59→21:50)
[2020-08-07] MEDS ORDERED: METOPROLOL TARTRATE 5 MG/5 ML VIAL IVPB PRN (05:59)
[2020-08-07] MEDS: AMINO ACIDS/PROTEIN HYDROLYS 30 ML LIQUID.PKT GT SCH ×2 (08:30→17:07)
[2020-08-07] MEDS: fentaNYL 25mcg/hr PATCH.TD72 TD SCH (08:30)
[2020-08-07 08:52] LABS: BASO % 0.6 % (0-2.0); EOS % 3.6 % (0-4.5); HEMATOCRIT 22.7 % (35.4-49); HEMOGLOBIN 7.1 GM/dL (11.7-16.9); LYMPH % 16.2 % (8-40); MCHC 31.1 g/dl (32.0-35.9); MEAN CELL VOLUME 86.9 fl (80-96); MEAN PLT VOLUME 6.7 fl (7.5-11.1); MONO % 9.5 % (3.8-10.2); NEUT % 70.1 % (42.8-82.8); PLATELET COUNT 272 K/MM3 (134-434); RBC 2.61 M/mm3 (4.00-5.60); RDW 18.6 % (11.9-15.9); WHITE BLOOD COUNT 9.5 K/mm3 (4.0-10.0)
[2020-08-07] MEDS: PANTOPRAZOLE SODIUM 40 MG VIAL IVPUSH SCH (10:25)
[2020-08-07] MEDS: levETIRAcetam 500 MG/5 ML INJECTION VIAL IVPB SCH (10:28)
[2020-08-07] MEDS: SODIUM HYPOCHLORITE 0.25%- 473 ML BULK BOTTLE TP SCH (15:00)
[2020-08-07] MEDS ORDERED: PT OWN MED DRAWER 7, Y5N ONE ×2 (21:35→21:51)
[2020-08-07] MEDS: CARVEDILOL 3.125 MG TABLET (FP) PO SCH (21:50)
[2020-08-07] MEDS: FAMOTIDINE 40 MG/5 ML ORAL SUSPENSION PEG SCH (22:08)
[2020-08-08] MEDS ORDERED: PT OWN MED DRAWER 7, Y5N ONE ×4 (06:39→21:03)
[2020-08-08] MEDS: BANATROL PLUS POWDER PACKET PEG SCH ×3 (06:48→21:28)
[2020-08-08 11:48] LABS: BASO % 0.4 % (0-2.0); HEMATOCRIT 22.9 % (35.4-49); HEMOGLOBIN 7.2 GM/dL (11.7-16.9); LYMPH % 21.2 % (8-40); MCH 27.3 pg (25.7-33.7); MCHC 31.3 g/dl (32.0-35.9); MEAN CELL VOLUME 87.1 fl (80-96); MEAN PLT VOLUME 6.8 fl (7.5-11.1); MONO % 8.6 % (3.8-10.2); NEUT % 63.8 % (42.8-82.8); PLATELET COUNT 329 K/MM3 (134-434); RBC 2.62 M/mm3 (4.00-5.60); WHITE BLOOD COUNT 8.9 K/mm3 (4.0-10.0)
[2020-08-08 12:11] LABS: CALCIUM 10.2 mg/dL (8.5-10.1)
[2020-08-08 12:12] LABS: ALBUMIN 1.6 g/dl (3.4-5.0)
[2020-08-08 12:15] LABS: CREATININE 3.1 mg/dL (0.55-1.3)
[2020-08-08 12:16] LABS: BILIRUBIN,TOTAL 0.4 mg/dL (0.2-1)
[2020-08-08] MEDS: CARVEDILOL 3.125 MG TABLET (FP) PO SCH ×2 (12:25→21:28)
[2020-08-08] MEDS: AMINO ACIDS/PROTEIN HYDROLYS 30 ML LIQUID.PKT GT SCH ×2 (12:25→17:30)
[2020-08-08] MEDS: FAMOTIDINE 40 MG/5 ML ORAL SUSPENSION PEG SCH ×2 (12:25→21:27)
[2020-08-08] MEDS: levETIRAcetam 500 MG/5 ML ORAL SOLUTION (UNIT-DOSE CUPS) GT SCH ×2 (12:25→17:30)
[2020-08-08] MEDS: SODIUM HYPOCHLORITE 0.25%- 473 ML BULK BOTTLE TP SCH (12:25)
[2020-08-08] MEDS ORDERED: SODIUM CHLORIDE 250 ML IV PRN (14:06)
[2020-08-09] MEDS ORDERED: PT OWN MED DRAWER 7, Y5N ONE ×2 (06:02→10:57)
[2020-08-09] MEDS: BANATROL PLUS POWDER PACKET PEG SCH ×2 (06:05→16:29)
[2020-08-09 08:36] LABS: BASO % 0.8 % (0-2.0); EOS % 4.7 % (0-4.5); HEMATOCRIT 21.8 % (35.4-49); LYMPH % 13.8 % (8-40); MCH 27.2 pg (25.7-33.7); MEAN CELL VOLUME 87.8 fl (80-96); MEAN PLT VOLUME 7.6 fl (7.5-11.1); MONO % 6.9 % (3.8-10.2); NEUT % 73.8 % (42.8-82.8); PLATELET COUNT 201 K/MM3 (134-434); RBC 2.48 M/mm3 (4.00-5.60); RDW 19.2 % (11.9-15.9)
[2020-08-09 08:42] LABS: HEMOGLOBIN 6.8 GM/dL (11.7-16.9)
[2020-08-09 09:04] LABS: POTASSIUM 4.5 mmol/L (3.5-5.1)
[2020-08-09 09:10] LABS: ALBUMIN 1.4 g/dl (3.4-5.0); BLOOD UREA NITROGEN 60.8 mg/dL (7-18); CALCIUM 9.8 mg/dL (8.5-10.1)
[2020-08-09 09:13] LABS: CREATININE 3.6 mg/dL (0.55-1.3)
[2020-08-09 09:14] LABS: BILIRUBIN,TOTAL 0.8 mg/dL (0.2-1); TOT PROT 5.8 g/dl (6.4-8.2)
[2020-08-09] MEDS: SODIUM HYPOCHLORITE 0.25%- 473 ML BULK BOTTLE TP SCH (10:48)
[2020-08-09] MEDS: AMINO ACIDS/PROTEIN HYDROLYS 30 ML LIQUID.PKT GT SCH ×2 (10:48→18:05)
[2020-08-09] MEDS: FAMOTIDINE 40 MG/5 ML ORAL SUSPENSION PEG SCH ×2 (11:07→21:46)
[2020-08-09] MEDS: levETIRAcetam 500 MG/5 ML ORAL SOLUTION (UNIT-DOSE CUPS) GT SCH (11:07)
[2020-08-09] MEDS: CARVEDILOL 3.125 MG TABLET (FP) PO SCH ×2 (11:07→21:45)
[2020-08-09] MEDS: EPOETIN ALFA 20,000 UNIT/1 ML VIAL SQ SCH ×2 (13:57→18:04)
[2020-08-09 14:32] VITALS: BMI 40.1
[2020-08-10] MEDS ORDERED: PT OWN MED DRAWER 7, Y5N ONE (10:25)
[2020-08-10] MEDS: levETIRAcetam 500 MG/5 ML ORAL SOLUTION (UNIT-DOSE CUPS) GT SCH ×2 (10:27→17:18)
[2020-08-10] MEDS: fentaNYL 25mcg/hr PATCH.TD72 TD SCH (10:27)
[2020-08-10] MEDS: CARVEDILOL 3.125 MG TABLET (FP) PO SCH (10:28)
[2020-08-10] MEDS: AMINO ACIDS/PROTEIN HYDROLYS 30 ML LIQUID.PKT GT SCH ×2 (10:28→17:18)
[2020-08-10] MEDS: FAMOTIDINE 40 MG/5 ML ORAL SUSPENSION PEG SCH (10:28)
[2020-08-10] MEDS: SODIUM HYPOCHLORITE 0.25%- 473 ML BULK BOTTLE TP SCH (10:28)
[2020-08-10 10:57] LABS: BASO % 0.4 % (0-2.0); HEMATOCRIT 24.2 % (35.4-49); HEMOGLOBIN 7.6 GM/dL (11.7-16.9); MCH 27.5 pg (25.7-33.7); MCHC 31.4 g/dl (32.0-35.9); MEAN CELL VOLUME 87.6 fl (80-96); MEAN PLT VOLUME 7.1 fl (7.5-11.1); NEUT % 74.6 % (42.8-82.8); PLATELET COUNT 315 K/MM3 (134-434); RBC 2.77 M/mm3 (4.00-5.60); RDW 18.4 % (11.9-15.9); WHITE BLOOD COUNT 8.8 K/mm3 (4.0-10.0)
[2020-08-10 11:19] LABS: CALCIUM 9.8 mg/dL (8.5-10.1); POTASSIUM 3.9 mmol/L (3.5-5.1)
[2020-08-10 11:21] LABS: ALBUMIN 1.5 g/dl (3.4-5.0); BLOOD UREA NITROGEN 36.1 mg/dL (7-18)
[2020-08-10 11:24] LABS: CREATININE 2.3 mg/dL (0.55-1.3)
[2020-08-10 11:26] LABS: BILIRUBIN,TOTAL 0.6 mg/dL (0.2-1)
[2020-08-10] MEDS ORDERED: SODIUM CHLORIDE 250 ML IV PRN (12:27)
[2020-08-10] MEDS ORDERED: EPOETIN ALFA 20,000 UNIT/1 ML VIAL IVPUSH ONE (12:27)
[2020-08-10 15:19] VITALS: BP 124/52; PULSE 119; TEMP 100.5
[2020-08-10] MEDS: IBUPROFEN 800 MG/8 ML IJ IVPB PRN (16:28)
[2020-08-10] MEDS ORDERED: ACETAMINOPHEN 650 MG/20.3 ML ORAL SOLUTION (CUPS) GT ONE (17:15)
== END 2020-08-10 20:03 | DRG 447 ==
LOC: JER 11:48 → JERBED 15:53 → J5S 06-09 02:42 → JICU 07-19 17:04 → J5S 07-23 19:58
PROVIDERS: ADMIT Family Medicine; ATTEND Family Medicine
PROC: 5A1955Z Respiratory Ventilation, Greater than 96 Consecutive Hours (ICD-10-PCS; principal; 2020-06-08)
PROC: 3E0G76Z Introduction of Nutritional Substance into Upper GI, Via Natural or Artificial Opening (ICD-10-PCS; 2020-06-08)
PROC: 2W15X6Z Compression of Back using Pressure Dressing (ICD-10-PCS; 2020-06-12)
PROC: 0DJ Gastrointestinal System, Inspection (ICD-10-PCS; 2020-06-18)
PROC: 5A1D70Z Performance of Urinary Filtration, Intermittent, Less than 6 Hours Per Day (ICD-10-PCS; 2020-06-18)
PROC: 0TJB8ZZ Inspection of Bladder, Via Natural or Artificial Opening Endoscopic (ICD-10-PCS; 2020-06-25)
PROC: 0DH63UZ Insertion of Feeding Device into Stomach, Percutaneous Approach (ICD-10-PCS; 2020-07-04)
PROC: BD12ZZZ Fluoroscopy of Stomach (ICD-10-PCS; 2020-07-04)
PROC: 0KBP0ZZ Excision of Left Hip Muscle, Open Approach (ICD-10-PCS; 2020-07-11)
PROC: 0KBN0ZZ Excision of Right Hip Muscle, Open Approach (ICD-10-PCS; 2020-07-11)
PROC: 30233N1 Transfusion of Nonautologous Red Blood Cells into Peripheral Vein, Percutaneous Approach (ICD-10-PCS; 2020-07-16)
PROC: 0W9F0ZZ Drainage of Abdominal Wall, Open Approach (ICD-10-PCS; 2020-07-22)
PROC: 0D20XUZ Change Feeding Device in Upper Intestinal Tract, External Approach (ICD-10-PCS; 2020-07-26)
PROC: 05HB33Z Insertion of Infusion Device into Right Basilic Vein, Percutaneous Approach (ICD-10-PCS; 2020-07-27)
PROC: B54MZZA Ultrasonography of Right Upper Extremity Veins, Guidance (ICD-10-PCS; 2020-07-27)
DX: I12.0 Hypertensive chronic kidney disease with stage 5 chronic kidney disease or end stage renal disease (principal); Z99.11 Dependence on respirator [ventilator] status; J18.9 Pneumonia, unspecified organism; R65.21 Severe sepsis with septic shock; A41.9 Sepsis, unspecified organism; Z93.0 Tracheostomy status; J96.10 Chronic respiratory failure, unspecified whether with hypoxia or hypercapnia; Z68.41 Body mass index [BMI] 40.0-44.9, adult; L89.154 Pressure ulcer of sacral region, stage 4; L89.892 Pressure ulcer of other site, stage 2; E66.9 Obesity, unspecified; E83.52 Hypercalcemia; K94.23 Gastrostomy malfunction; K94.22 Gastrostomy infection; L03.311 Cellulitis of abdominal wall; N18.6 End stage renal disease; D50.9 Iron deficiency anemia, unspecified; R31.29 Other microscopic hematuria; R19.7 Diarrhea, unspecified; D63.1 Anemia in chronic kidney disease; K21.9 Gastro-esophageal reflux disease without esophagitis; E87.6 Hypokalemia; Z86.73 Personal history of transient ischemic attack (TIA), and cerebral infarction without residual deficits; Z74.01 Bed confinement status; Z99.2 Dependence on renal dialysis; R94.6 Abnormal results of thyroid function studies; Y83.8 Other surgical procedures as the cause of abnormal reaction of the patient, or of later complication, without mention of misadventure at the time of the procedure; Z11.59 Encounter for screening for other viral diseases; E78.5 Hyperlipidemia, unspecified; N40.1 Benign prostatic hyperplasia with lower urinary tract symptoms; R33.8 Other retention of urine; R79.89 Other specified abnormal findings of blood chemistry; K80.20 Calculus of gallbladder without cholecystitis without obstruction; J98.11 Atelectasis; E04.1 Nontoxic single thyroid nodule
CPT/HCPCS: 36415; 36430; 36511; 49440; 49450; 71045-TC-FY; 71250-TC; 74018-TC-FY; 74176-TC; 74190-TC-FY; 76705-TC; 80048; 80053; 81003; 82272; 82310; 82550; 82728; 82962; 82977; 83036; 83540; 83550; 83735; 83970; 84080; 84100; 84484; 85025; 85027; 85610; 85730; 86704; 86706; 86707; 86708; 86709; 86803; 86850; 86870; 86900; 86901; 86902; 86922; 87040; 87070; 87116; 87184; 87186; 87205; 87324; 87340; 87449; 93005; 93010; 93306-TC; 93970-TC; 94002; 94640; 97161-GP; 99285-25; C1769; C9803; G0480; J0131; J0885; J1439; J1644; J1756; J2020; J3480; P9038; P9058; Q5106; U0003

== ENCOUNTER 2021-01-09 15:26 | Inpatient (IN) | payer OTHER ==
[2021-01-09] MEDS ORDERED: ACETAMINOPHEN 1000 MG/100 ML VIAL (NON FORMULARY) IVPB ONE (16:09)
[2021-01-09] MEDS ORDERED: PIPERACILLIN/TAZOB 4.5 GM 4.5 GM in DEXTROSE 5%-WATER 100 ML IVPB ONE (16:09)
[2021-01-09] MEDS ORDERED: ACETAMINOPHEN INJECTION 100 ML IVPB ONE (16:13)
[2021-01-09] MEDS ORDERED: PIPERACILLIN/TAZOB 4.5 GM 4.5 GM/100 ML BAG IVPB ONE (16:14)
[2021-01-09] MEDS ORDERED: LINEZOLID 600 MG PREMIX BAG 600 MG in PREMIX 300 IVPB ONE (16:15)
[2021-01-09] MEDS ORDERED: PIPERACILLIN/TAZOB 2.25 GM 2.25 GM in DEXTROSE 5%-WATER - 50 ML IVPB ONE (16:39)
[2021-01-09] MEDS ORDERED: PIPERACILLIN/TAZOB 2.25 GM 2.25 GM/50 ML BAG IVPB ONE (16:40)
[2021-01-09 16:49] LABS: VENOUS BASE EXCESS 2.8 mmol/L (-2-2); VENOUS O2 SATURATION 93.3 % (70-80); VENOUS PCO2 45.7 mmHg (38-52); VENOUS PH 7.403 (7.310-7.410)
[2021-01-09 16:53] LABS: BASO % 0.2 % (0-2.0); EOS % 0.1 % (0-4.5); HEMATOCRIT 22.2 % (35.4-49); LYMPH % 5.2 % (8-40); MCH 26.3 pg (25.7-33.7); MCHC 30.7 g/dl (32.0-35.9); MEAN CELL VOLUME 85.7 fl (80-96); MEAN PLT VOLUME 6.8 fl (7.5-11.1); NEUT % 90.5 % (42.8-82.8); PLATELET COUNT 589 K/MM3 (134-434); RDW 18.2 % (11.9-15.9); WHITE BLOOD COUNT 27.1 K/mm3 (4.0-10.0)
[2021-01-09 17:00] LABS: INR 1.14 (0.83-1.09); PROTHROMBIN TIME (PATIENT) 13.7 SEC (9.7-13.0)
[2021-01-09 17:02] LABS: ACTIVATED PTT 38.6 SECONDS (25.2-36.5)
[2021-01-09 17:04] LABS: HEMOGLOBIN 6.8 GM/dL (11.7-16.9)
[2021-01-09 17:09] LABS: CHLORIDE 99 mmol/L (98-107); SODIUM 134 mmol/L (136-145)
[2021-01-09 17:11] LABS: CALCIUM 9.3 mg/dL (8.5-10.1)
[2021-01-09 17:12] LABS: ALBUMIN 1.2 g/dl (3.4-5.0); ANION GAP 6 MMOL/L (8-16); BLOOD UREA NITROGEN 21.1 mg/dL (7-18); CO2 30 mmol/L (21-32); GLUCOSE,RANDOM 88 mg/dL (74-106)
[2021-01-09 17:15] LABS: CREATININE 1.4 mg/dL (0.55-1.3); SGOT/AST 14 U/L (15-37); SGPT/ALT 8 U/L (13-61)
[2021-01-09 17:17] LABS: BILIRUBIN,TOTAL 0.2 mg/dL (0.2-1); TOT PROT 6.5 g/dl (6.4-8.2)
[2021-01-09 17:18] LABS: ALK PHOS 241 U/L (45-117)
[2021-01-09 18:26] LABS: EPI CELLS 6 /uL (0-25.1); HYALINE CASTS 10 /uL (0-3.1); URINE APPEARANCE TURBID; URINE BACTERIA 6506 /uL (0-1359); URINE BILIRUBIN NEGATIVE (NEGATIVE); URINE COLOR DK YELLOW; URINE GLUCOSE (UA) NEGATIVE (NEGATIVE); URINE KETONE NEGATIVE (NEGATIVE); URINE LEUK ESTERASE 3+ (NEGATIVE); URINE NITRITE NEGATIVE (NEGATIVE); URINE PROTEIN 2+ (NEGATIVE); URINE UROBILINOGEN 0.2 mg/dL (0.2-1.0); URINE WBC 7078 /uL (0-25.8)
[2021-01-09 19:03] LABS: PLATELET ESTIMATE INCREASED
[2021-01-09 21:06] LABS: URINE RBC 42.3 /uL (0-23.9); YEAST NONE SEEN (NEGATIVE)
[2021-01-09] MEDS ORDERED: KCL 10 MEQ IVPB 10 MEQ/100 ML INFUS.BAG IVPB SCH (21:15)
[2021-01-09] MEDS ORDERED: ACETAMINOPHEN 1000 MG/100 ML VIAL (NON FORMULARY) IVPB PRN (23:40)
[2021-01-09] MEDS ORDERED: KCL 10 MEQ IVPB 10 MEQ/100 ML INFUS.BAG IVPB ONE (23:44)
[2021-01-10] MEDS ORDERED: SODIUM CHLORIDE 0.9% 500 ML INFUS.BAG IV ONE (01:52)
[2021-01-10] MEDS ORDERED: DEXTROSE 5%-WATER - 50 ML IVPB ONE ×3 (02:24→17:26)
[2021-01-10] MEDS ORDERED: PIPERACILLIN/TAZOBACTAM 2.25 GM VIAL IVPB ONE ×3 (02:24→17:26)
[2021-01-10] MEDS: PIPERACILLIN/TAZOB 2.25 GM 2.25 GM in DEXTROSE 5%-WATER - 50 ML IVPB SCH ×3 (02:37→17:35)
[2021-01-10] MEDS ORDERED: SODIUM CHLORIDE 250 ML IV STA ×2 (02:55→06:10)
[2021-01-10] MEDS ORDERED: SODIUM CHLORIDE 500 ML IV STA (03:05)
[2021-01-10] MEDS ORDERED: LINEZOLID 600 MG PREMIX BAG 600 MG in PREMIX 300 IV SCH (05:00)
[2021-01-10] MEDS ORDERED: LINEZOLID 600 MG PREMIX BAG 600 MG/300 ML BAG IVPB SCH ×2 (05:00→22:00)
[2021-01-10] MEDS: KCL 10 MEQ IVPB 10 MEQ/100 ML INFUS.BAG IVPB SCH ×3 (05:59→08:55)
[2021-01-10] MEDS: HEPARIN NA (PORCINE) 5,000 UNITS/ML 1ML VIAL SQ SCH ×3 (06:00→21:20)
[2021-01-10] MEDS ORDERED: MIDODRINE HCL 5 MG TABLET GT ONE (06:15)
[2021-01-10 07:20] LABS: HEMATOCRIT 16.5 % (35.4-49); MCH 26.7 pg (25.7-33.7); MEAN CELL VOLUME 86.3 fl (80-96); PLATELET COUNT 124 K/MM3 (134-434); RBC 1.92 M/mm3 (4.00-5.60); RDW 17.4 % (11.9-15.9); WHITE BLOOD COUNT 18.8 K/mm3 (4.0-10.0)
[2021-01-10 07:24] LABS: HEMOGLOBIN 5.1 GM/dL (11.7-16.9)
[2021-01-10 07:28] LABS: CHLORIDE 101 mmol/L (98-107); SODIUM 134 mmol/L (136-145)
[2021-01-10 07:33] LABS: CALCIUM 8.4 mg/dL (8.5-10.1)
[2021-01-10 07:34] LABS: ANION GAP 5 MMOL/L (8-16); BLOOD UREA NITROGEN 27.7 mg/dL (7-18); CO2 27 mmol/L (21-32); GLUCOSE,RANDOM 103 mg/dL (74-106); MAGNESIUM 1.8 mg/dL (1.8-2.4)
[2021-01-10 07:37] LABS: CREATININE 1.7 mg/dL (0.55-1.3); SGOT/AST 23 U/L (15-37); SGPT/ALT 8 U/L (13-61)
[2021-01-10 07:38] LABS: BILIRUBIN,TOTAL 0.2 mg/dL (0.2-1)
[2021-01-10 07:39] LABS: ALBUMIN 0.8 g/dl (3.4-5.0); ALK PHOS 156 U/L (45-117); TOT PROT 4.5 g/dl (6.4-8.2)
[2021-01-10] MEDS ORDERED: SODIUM PHOSPHATE - 30 MM in SODIUM CHLORIDE 250 ML IVPB ONE (09:00)
[2021-01-10] MEDS ORDERED: PT OWN MED DRAWER 7, Y5N ONE (09:25)
[2021-01-10] MEDS ORDERED: levETIRAcetam 500 MG/5 ML ORAL SOLUTION (UNIT-DOSE CUPS) GT SCH (10:00)
[2021-01-10] MEDS ORDERED: SODIUM CHLORIDE 250 ML IV PRN (10:29)
[2021-01-10 10:50] LABS: ANISOCYTOSIS 2+; MACROCYTOSIS 1+; PLATELET ESTIMATE DECREASED; TARGET CELLS 1+; TEAR DROP CELLS 1+; TOXIC GRANULATION 2+
[2021-01-10 12:01] LABS: MCH 27.5 pg (25.7-33.7); MCHC 32.1 g/dl (32.0-35.9); MEAN CELL VOLUME 85.5 fl (80-96); MEAN PLT VOLUME 6.8 fl (7.5-11.1); PLATELET COUNT 400 K/MM3 (134-434); RBC 2.46 M/mm3 (4.00-5.60); RDW 18.3 % (11.9-15.9); WHITE BLOOD COUNT 22.3 K/mm3 (4.0-10.0)
[2021-01-10 12:07] LABS: HEMOGLOBIN 6.8 GM/dL (11.7-16.9)
[2021-01-10] MEDS ORDERED: DAPTOMYCIN 800 MG in SODIUM CHLORIDE 100 ML IVPB ONE (12:30)
[2021-01-10] MEDS: ALBUMIN HUMAN 25% 12.5 GM/50 ML VIAL IVPB SCH ×3 (16:27→23:16)
[2021-01-10 16:31] VITALS: BMI 33.8
[2021-01-11] MEDS: ALBUMIN HUMAN 25% 12.5 GM/50 ML VIAL IVPB SCH ×13 (00:40→07:36)
[2021-01-11] MEDS ORDERED: PIPERACILLIN/TAZOBACTAM 2.25 GM VIAL IVPB ONE ×3 (02:16→18:35)
[2021-01-11] MEDS ORDERED: DEXTROSE 5%-WATER - 50 ML IVPB ONE ×3 (02:16→18:35)
[2021-01-11] MEDS: PIPERACILLIN/TAZOB 2.25 GM 2.25 GM in DEXTROSE 5%-WATER - 50 ML IVPB SCH ×6 (03:08→20:51)
[2021-01-11] MEDS: HEPARIN NA (PORCINE) 5,000 UNITS/ML 1ML VIAL SQ SCH ×3 (06:33→21:34)
[2021-01-11] MEDS ORDERED: PIPERACILLIN/TAZOB 2.25 GM 2.25 GM in DEXTROSE 5%-WATER - 50 ML IVPB SCH (10:00)
[2021-01-11] MEDS ORDERED: LINEZOLID 600 MG PREMIX BAG 600 MG/300 ML BAG IVPB SCH (10:00)
[2021-01-11] MEDS: levETIRAcetam 500 MG/5 ML ORAL SOLUTION (UNIT-DOSE CUPS) GT SCH (11:06)
[2021-01-11] MEDS ORDERED: SODIUM CHLORIDE 250 ML IV PRN ×2 (13:10→17:07)
[2021-01-11 14:32] LABS: BASO % 0.3 % (0-2.0); EOS % 0.5 % (0-4.5); HEMATOCRIT 26.3 % (35.4-49); HEMOGLOBIN 8.4 GM/dL (11.7-16.9); MCHC 31.9 g/dl (32.0-35.9); MEAN CELL VOLUME 84.6 fl (80-96); MEAN PLT VOLUME 6.6 fl (7.5-11.1); MONO % 4.5 % (3.8-10.2); NEUT % 83.7 % (42.8-82.8); PLATELET COUNT 408 K/MM3 (134-434); RDW 18.1 % (11.9-15.9); WHITE BLOOD COUNT 15.1 K/mm3 (4.0-10.0)
[2021-01-11 14:50] LABS: CALCIUM 9.4 mg/dL (8.5-10.1)
[2021-01-11 14:54] LABS: CREATININE 2.3 mg/dL (0.55-1.3)
[2021-01-11 14:56] LABS: BILIRUBIN,TOTAL 0.3 mg/dL (0.2-1); TOT PROT 6.1 g/dl (6.4-8.2)
[2021-01-11 14:57] LABS: ALBUMIN 1.5 g/dl (3.4-5.0)
[2021-01-11] MEDS ORDERED: VANCOMYCIN 1 GRAM (PRE-DOCKED) 1,000 MG/250 ML BAG IVPB ONE (15:09)
[2021-01-11] MEDS ORDERED: EPOETIN ALFA-EPBX 10,000 UNIT/ML VIAL SQ ONE (15:15)
[2021-01-11 15:31] LABS: IRON SERUM 24 ug/dL (50-175); TOTAL IRON BINDING CAPACITY 40 ug/dL (250-450)
[2021-01-12] MEDS ORDERED: PT OWN MED DRAWER 7, Y5N ONE (00:26)
[2021-01-12] MEDS: LINEZOLID 600 MG PREMIX BAG 600 MG/300 ML BAG IVPB SCH ×2 (01:00→12:13)
[2021-01-12] MEDS ORDERED: PIPERACILLIN/TAZOBACTAM 2.25 GM VIAL IVPB ONE ×4 (01:25→17:10)
[2021-01-12] MEDS ORDERED: DEXTROSE 5%-WATER - 50 ML IVPB ONE ×4 (01:26→17:10)
[2021-01-12] MEDS: PIPERACILLIN/TAZOB 2.25 GM 2.25 GM in DEXTROSE 5%-WATER - 50 ML IVPB SCH ×3 (02:14→17:37)
[2021-01-12] MEDS: HEPARIN NA (PORCINE) 5,000 UNITS/ML 1ML VIAL SQ SCH ×3 (05:57→21:58)
[2021-01-12 09:02] LABS: BASO % 0.4 % (0-2.0); EOS % 0.4 % (0-4.5); HEMATOCRIT 24.6 % (35.4-49); LYMPH % 12.3 % (8-40); MCH 27.6 pg (25.7-33.7); MCHC 32.4 g/dl (32.0-35.9); MEAN CELL VOLUME 85.1 fl (80-96); MEAN PLT VOLUME 6.4 fl (7.5-11.1); MONO % 6.4 % (3.8-10.2); NEUT % 80.5 % (42.8-82.8); PLATELET COUNT 475 K/MM3 (134-434); RDW 17.5 % (11.9-15.9); WHITE BLOOD COUNT 15.4 K/mm3 (4.0-10.0)
[2021-01-12] MEDS: levETIRAcetam 500 MG/5 ML ORAL SOLUTION (UNIT-DOSE CUPS) GT SCH (10:13)
[2021-01-12] MEDS ORDERED: NAPH,MB-DB/K PH,MBDB POWDER PACKET GT ONE (11:00)
[2021-01-12 11:46] LABS: ALBUMIN 1.4 g/dl (3.4-5.0); BLOOD UREA NITROGEN 19.3 mg/dL (7-18)
[2021-01-12 11:51] LABS: BILIRUBIN,TOTAL 0.3 mg/dL (0.2-1); TOT PROT 6.4 g/dl (6.4-8.2)
[2021-01-12 11:56] LABS: CALCIUM 8.7 mg/dL (8.5-10.1); CREATININE 1.8 mg/dL (0.55-1.3)
[2021-01-12] MEDS ORDERED: VANCOMYCIN 1 GRAM (PRE-DOCKED) 1,000 MG/250 ML BAG IVPB ONE (14:00)
[2021-01-12] MEDS ORDERED: POTASSIUM CHLORIDE ORAL LIQUID 20 MEQ/15 ML PO ONE (15:49)
[2021-01-13] MEDS ORDERED: PIPERACILLIN/TAZOBACTAM 2.25 GM VIAL IVPB ONE ×3 (00:55→17:03)
[2021-01-13] MEDS ORDERED: DEXTROSE 5%-WATER - 50 ML IVPB ONE ×3 (00:57→17:03)
[2021-01-13] MEDS: PIPERACILLIN/TAZOB 2.25 GM 2.25 GM in DEXTROSE 5%-WATER - 50 ML IVPB SCH ×3 (01:34→17:16)
[2021-01-13] MEDS: HEPARIN NA (PORCINE) 5,000 UNITS/ML 1ML VIAL SQ SCH ×3 (05:50→22:34)
[2021-01-13 09:40] LABS: BASO % 0.4 % (0-2.0); EOS % 0.7 % (0-4.5); HEMATOCRIT 25.7 % (35.4-49); HEMOGLOBIN 8.2 GM/dL (11.7-16.9); MCH 27.1 pg (25.7-33.7); MCHC 31.7 g/dl (32.0-35.9); MEAN CELL VOLUME 85.4 fl (80-96); MEAN PLT VOLUME 6.4 fl (7.5-11.1); MONO % 5.8 % (3.8-10.2); NEUT % 75.1 % (42.8-82.8); PLATELET COUNT 474 K/MM3 (134-434); RBC 3.01 M/mm3 (4.00-5.60); RDW 18.8 % (11.9-15.9); WHITE BLOOD COUNT 12.8 K/mm3 (4.0-10.0)
[2021-01-13 10:04] LABS: CALCIUM 9.4 mg/dL (8.5-10.1)
[2021-01-13 10:05] LABS: ALBUMIN 1.4 g/dl (3.4-5.0); BILIRUBIN,TOTAL 0.4 mg/dL (0.2-1); BLOOD UREA NITROGEN 24.8 mg/dL (7-18)
[2021-01-13 10:06] LABS: TOT PROT 6.7 g/dl (6.4-8.2)
[2021-01-13 10:08] LABS: CREATININE 2.5 mg/dL (0.55-1.3); PHOSPHOROUS 2.9 mg/dL (2.5-4.9)
[2021-01-13] MEDS ORDERED: SODIUM CHLORIDE 250 ML IV PRN (10:46)
[2021-01-13] MEDS: levETIRAcetam 500 MG/5 ML ORAL SOLUTION (UNIT-DOSE CUPS) GT SCH (11:07)
[2021-01-13] MEDS ORDERED: PT OWN MED DRAWER 7, Y5N ONE (22:32)
[2021-01-14] MEDS ORDERED: DEXTROSE 5%-WATER - 50 ML IVPB ONE ×3 (01:15→18:10)
[2021-01-14] MEDS ORDERED: PIPERACILLIN/TAZOBACTAM 2.25 GM VIAL IVPB ONE ×3 (01:15→18:10)
[2021-01-14] MEDS: PIPERACILLIN/TAZOB 2.25 GM 2.25 GM in DEXTROSE 5%-WATER - 50 ML IVPB SCH ×3 (02:13→18:33)
[2021-01-14] MEDS: HEPARIN NA (PORCINE) 5,000 UNITS/ML 1ML VIAL SQ SCH ×3 (05:23→22:50)
[2021-01-14] MEDS ORDERED: SODIUM CHLORIDE 250 ML IV PRN (07:47)
[2021-01-14 09:16] LABS: BASO % 0.2 % (0-2.0); EOS % 0.8 % (0-4.5); HEMATOCRIT 26.4 % (35.4-49); HEMOGLOBIN 8.4 GM/dL (11.7-16.9); LYMPH % 11.3 % (8-40); MCH 27.6 pg (25.7-33.7); MCHC 31.9 g/dl (32.0-35.9); MEAN CELL VOLUME 86.5 fl (80-96); MEAN PLT VOLUME 6.4 fl (7.5-11.1); NEUT % 82.7 % (42.8-82.8); PLATELET COUNT 443 K/MM3 (134-434); RBC 3.05 M/mm3 (4.00-5.60); RDW 19.1 % (11.9-15.9); WHITE BLOOD COUNT 14.9 K/mm3 (4.0-10.0)
[2021-01-14 09:30] LABS: ALBUMIN 1.4 g/dl (3.4-5.0); CALCIUM 8.5 mg/dL (8.5-10.1)
[2021-01-14 09:31] LABS: BLOOD UREA NITROGEN 34.5 mg/dL (7-18)
[2021-01-14 09:36] LABS: BILIRUBIN,TOTAL 0.6 mg/dL (0.2-1); TOT PROT 6.7 g/dl (6.4-8.2)
[2021-01-14] MEDS: levETIRAcetam 500 MG/5 ML ORAL SOLUTION (UNIT-DOSE CUPS) GT SCH ×2 (10:43→22:59)
[2021-01-14] MEDS ORDERED: EPOETIN ALFA-EPBX 10,000 UNIT/ML VIAL IVPUSH ONE (11:00)
[2021-01-14] MEDS ORDERED: CARVEDILOL 3.125 MG TABLET (FP) PO SCH (19:59)
[2021-01-14] MEDS ORDERED: ACETAMINOPHEN 650 MG/20.3 ML ORAL SOLUTION (CUPS) GT PRN (20:09)
[2021-01-14] MEDS: FERROUS SO4 300 MG/5 ML ORAL SOLN UNIT DOSE CUPS GT SCH (22:49)
[2021-01-14] MEDS: LACTOBACILLUS ACIDOPHILUS 1 TABLET GT SCH (22:49)
[2021-01-14] MEDS: ATORVASTATIN CA 40 MG TABLET (FP) GT SCH (22:49)
[2021-01-14] MEDS: CARVEDILOL 3.125 MG TABLET (FP) GT SCH (22:51)
[2021-01-14] MEDS: fentaNYL 25mcg/hr PATCH.TD72 TD SCH (22:51)
[2021-01-14] MEDS: FAMOTIDINE 40 MG/5 ML ORAL SUSPENSION PEG SCH (23:33)
[2021-01-15] MEDS ORDERED: PIPERACILLIN/TAZOBACTAM 2.25 GM VIAL IVPB ONE ×3 (00:59→17:07)
[2021-01-15] MEDS ORDERED: DEXTROSE 5%-WATER - 50 ML IVPB ONE ×3 (00:59→17:08)
[2021-01-15] MEDS: PIPERACILLIN/TAZOB 2.25 GM 2.25 GM in DEXTROSE 5%-WATER - 50 ML IVPB SCH ×3 (01:45→17:14)
[2021-01-15] MEDS: LACTOBACILLUS ACIDOPHILUS 1 TABLET GT SCH ×3 (06:53→22:20)
[2021-01-15] MEDS: ALBUTEROL SO4 2.5/IPRATROPIUM 0.5 INH SOL 3 ML VIAL.NEB. NEB SCH ×3 (07:35→20:15)
[2021-01-15 08:27] LABS: BASO % 0.3 % (0-2.0); EOS % 1.8 % (0-4.5); HEMATOCRIT 26.9 % (35.4-49); HEMOGLOBIN 8.6 GM/dL (11.7-16.9); LYMPH % 13.6 % (8-40); MCH 27.5 pg (25.7-33.7); MCHC 32.1 g/dl (32.0-35.9); MEAN CELL VOLUME 85.6 fl (80-96); MEAN PLT VOLUME 6.2 fl (7.5-11.1); MONO % 7.1 % (3.8-10.2); NEUT % 77.2 % (42.8-82.8); PLATELET COUNT 456 K/MM3 (134-434); RBC 3.14 M/mm3 (4.00-5.60); RDW 18.8 % (11.9-15.9); WHITE BLOOD COUNT 13.4 K/mm3 (4.0-10.0)
[2021-01-15] MEDS ORDERED: PT OWN MED DRAWER 7, Y5N ONE ×2 (11:25→22:19)
[2021-01-15] MEDS: AMINO ACIDS/PROTEIN HYDROLYS 30 ML LIQUID.PKT GT SCH ×2 (11:29→17:14)
[2021-01-15] MEDS: CARVEDILOL 3.125 MG TABLET (FP) GT SCH ×2 (11:30→22:20)
[2021-01-15] MEDS: HEPARIN NA (PORCINE) 5,000 UNITS/ML 1ML VIAL SQ SCH ×2 (11:30→22:20)
[2021-01-15] MEDS: SODIUM HYPOCHLORITE 0.25%- 473 ML BULK BOTTLE TP SCH (11:30)
[2021-01-15] MEDS: FERROUS SO4 300 MG/5 ML ORAL SOLN UNIT DOSE CUPS GT SCH ×2 (11:30→22:20)
[2021-01-15] MEDS: levETIRAcetam 500 MG/5 ML ORAL SOLUTION (UNIT-DOSE CUPS) GT SCH (11:31)
[2021-01-15] MEDS: FAMOTIDINE 40 MG/5 ML ORAL SUSPENSION PEG SCH ×2 (11:31→22:21)
[2021-01-15 14:34] LABS: ALBUMIN 1.3 g/dl (3.4-5.0); CALCIUM 9.5 mg/dL (8.5-10.1)
[2021-01-15 14:35] LABS: BLOOD UREA NITROGEN 25.3 mg/dL (7-18)
[2021-01-15 14:38] LABS: CREATININE 2.2 mg/dL (0.55-1.3)
[2021-01-15 14:39] LABS: BILIRUBIN,TOTAL 0.2 mg/dL (0.2-1); TOT PROT 6.6 g/dl (6.4-8.2)
[2021-01-15] MEDS: VANCOMYCIN 250 MG/5 ML ORAL SOLUTION GT SCH (17:15)
[2021-01-15] MEDS ORDERED: VANCOMYCIN 250 MG/5 ML ORAL SOLUTION GT SCH (18:00)
[2021-01-15] MEDS: ATORVASTATIN CA 40 MG TABLET (FP) GT SCH (22:20)
[2021-01-16] MEDS: VANCOMYCIN 250 MG/5 ML ORAL SOLUTION GT SCH ×5 (00:05→23:06)
[2021-01-16] MEDS ORDERED: PIPERACILLIN/TAZOBACTAM 2.25 GM VIAL IVPB ONE ×3 (01:00→18:12)
[2021-01-16] MEDS ORDERED: DEXTROSE 5%-WATER - 50 ML IVPB ONE ×3 (01:00→18:12)
[2021-01-16] MEDS: PIPERACILLIN/TAZOB 2.25 GM 2.25 GM in DEXTROSE 5%-WATER - 50 ML IVPB SCH ×3 (01:03→18:15)
[2021-01-16] MEDS: LACTOBACILLUS ACIDOPHILUS 1 TABLET GT SCH ×3 (05:28→22:44)
[2021-01-16] MEDS ORDERED: SODIUM CHLORIDE 250 ML IV PRN (06:53)
[2021-01-16] MEDS: ALBUTEROL SO4 2.5/IPRATROPIUM 0.5 INH SOL 3 ML VIAL.NEB. NEB SCH ×3 (07:50→20:30)
[2021-01-16] MEDS ORDERED: EPOETIN ALFA-EPBX 10,000 UNIT/ML VIAL IVPUSH ONE (08:00)
[2021-01-16] MEDS: AMINO ACIDS/PROTEIN HYDROLYS 30 ML LIQUID.PKT GT SCH ×2 (08:20→18:15)
[2021-01-16] MEDS ORDERED: PT OWN MED DRAWER 7, Y5N ONE ×2 (11:05→22:46)
[2021-01-16] MEDS: SODIUM HYPOCHLORITE 0.25%- 473 ML BULK BOTTLE TP SCH (11:22)
[2021-01-16] MEDS: FERROUS SO4 300 MG/5 ML ORAL SOLN UNIT DOSE CUPS GT SCH ×2 (11:22→22:44)
[2021-01-16] MEDS: CARVEDILOL 3.125 MG TABLET (FP) GT SCH ×2 (11:22→22:47)
[2021-01-16] MEDS: HEPARIN NA (PORCINE) 5,000 UNITS/ML 1ML VIAL SQ SCH ×2 (11:22→22:44)
[2021-01-16] MEDS: FAMOTIDINE 40 MG/5 ML ORAL SUSPENSION PEG SCH ×2 (11:23→22:47)
[2021-01-16] MEDS: levETIRAcetam 500 MG/5 ML ORAL SOLUTION (UNIT-DOSE CUPS) GT SCH (11:23)
[2021-01-16] MEDS ORDERED: VANCOMYCIN 1 GRAM (PRE-DOCKED) 1,000 MG/250 ML BAG IVPB ONE (15:30)
[2021-01-16] MEDS: ATORVASTATIN CA 40 MG TABLET (FP) GT SCH (22:44)
[2021-01-17] MEDS ORDERED: PIPERACILLIN/TAZOBACTAM 2.25 GM VIAL IVPB ONE ×3 (00:18→16:57)
[2021-01-17] MEDS ORDERED: DEXTROSE 5%-WATER - 50 ML IVPB ONE ×3 (00:19→16:57)
[2021-01-17] MEDS: PIPERACILLIN/TAZOB 2.25 GM 2.25 GM in DEXTROSE 5%-WATER - 50 ML IVPB SCH ×3 (01:36→17:09)
[2021-01-17] MEDS: LACTOBACILLUS ACIDOPHILUS 1 TABLET GT SCH ×3 (05:52→22:32)
[2021-01-17] MEDS: VANCOMYCIN 250 MG/5 ML ORAL SOLUTION GT SCH ×3 (05:52→17:10)
[2021-01-17] MEDS: ALBUTEROL SO4 2.5/IPRATROPIUM 0.5 INH SOL 3 ML VIAL.NEB. NEB SCH ×3 (07:55→19:52)
[2021-01-17 08:52] LABS: BASO % 0.6 % (0-2.0); EOS % 2.3 % (0-4.5); HEMATOCRIT 26.4 % (35.4-49); HEMOGLOBIN 8.2 GM/dL (11.7-16.9); LYMPH % 14.7 % (8-40); MCH 26.9 pg (25.7-33.7); MCHC 31.1 g/dl (32.0-35.9); MEAN CELL VOLUME 86.3 fl (80-96); MEAN PLT VOLUME 6.2 fl (7.5-11.1); MONO % 7.7 % (3.8-10.2); NEUT % 74.7 % (42.8-82.8); PLATELET COUNT 441 K/MM3 (134-434); RBC 3.06 M/mm3 (4.00-5.60); RDW 18.7 % (11.9-15.9); WHITE BLOOD COUNT 12.7 K/mm3 (4.0-10.0)
[2021-01-17 09:14] LABS: CALCIUM 9.2 mg/dL (8.5-10.1)
[2021-01-17 09:15] LABS: ALBUMIN 1.3 g/dl (3.4-5.0)
[2021-01-17 09:19] LABS: CREATININE 2.1 mg/dL (0.55-1.3)
[2021-01-17 09:20] LABS: BILIRUBIN,TOTAL 0.5 mg/dL (0.2-1); TOT PROT 6.7 g/dl (6.4-8.2)
[2021-01-17] MEDS: AMINO ACIDS/PROTEIN HYDROLYS 30 ML LIQUID.PKT GT SCH ×2 (09:30→17:09)
[2021-01-17] MEDS ORDERED: PT OWN MED DRAWER 7, Y5N ONE (09:35)
[2021-01-17] MEDS: FERROUS SO4 300 MG/5 ML ORAL SOLN UNIT DOSE CUPS GT SCH ×2 (10:57→22:32)
[2021-01-17] MEDS: HEPARIN NA (PORCINE) 5,000 UNITS/ML 1ML VIAL SQ SCH ×2 (10:57→22:32)
[2021-01-17] MEDS: CARVEDILOL 3.125 MG TABLET (FP) GT SCH ×2 (10:58→22:32)
[2021-01-17] MEDS: FAMOTIDINE 40 MG/5 ML ORAL SUSPENSION PEG SCH ×2 (10:59→22:33)
[2021-01-17] MEDS: SODIUM HYPOCHLORITE 0.25%- 473 ML BULK BOTTLE TP SCH (12:00)
[2021-01-17] MEDS: levETIRAcetam 500 MG/5 ML ORAL SOLUTION (UNIT-DOSE CUPS) GT SCH (12:48)
[2021-01-17] MEDS: fentaNYL 25mcg/hr PATCH.TD72 TD SCH (22:24)
[2021-01-17] MEDS: FENTANYL PATCH WASTE MC PRN (22:25)
[2021-01-17] MEDS: BANATROL PLUS POWDER PACKET PEG SCH (22:32)
[2021-01-17] MEDS: ATORVASTATIN CA 40 MG TABLET (FP) GT SCH (22:32)
[2021-01-18] MEDS: VANCOMYCIN 250 MG/5 ML ORAL SOLUTION GT SCH ×5 (00:24→23:05)
[2021-01-18] MEDS ORDERED: PIPERACILLIN/TAZOBACTAM 2.25 GM VIAL IVPB ONE ×2 (00:41→09:10)
[2021-01-18] MEDS ORDERED: DEXTROSE 5%-WATER - 50 ML IVPB ONE ×2 (00:42→09:11)
[2021-01-18] MEDS: PIPERACILLIN/TAZOB 2.25 GM 2.25 GM in DEXTROSE 5%-WATER - 50 ML IVPB SCH ×2 (01:57→13:35)
[2021-01-18] MEDS: BANATROL PLUS POWDER PACKET PEG SCH ×3 (06:53→21:46)
[2021-01-18] MEDS: ALBUTEROL SO4 2.5/IPRATROPIUM 0.5 INH SOL 3 ML VIAL.NEB. NEB SCH ×3 (08:50→20:10)
[2021-01-18 09:00] LABS: BASO % 0.5 % (0-2.0); EOS % 2.2 % (0-4.5); HEMATOCRIT 24.2 % (35.4-49); HEMOGLOBIN 7.8 GM/dL (11.7-16.9); LYMPH % 14.4 % (8-40); MCH 27.2 pg (25.7-33.7); MEAN PLT VOLUME 6.1 fl (7.5-11.1); MONO % 6.2 % (3.8-10.2); NEUT % 76.7 % (42.8-82.8); PLATELET COUNT 434 K/MM3 (134-434); RBC 2.85 M/mm3 (4.00-5.60); RDW 18.6 % (11.9-15.9)
[2021-01-18] MEDS ORDERED: PT OWN MED DRAWER 7, Y5N ONE ×2 (09:10→13:37)
[2021-01-18] MEDS: HEPARIN NA (PORCINE) 5,000 UNITS/ML 1ML VIAL SQ SCH ×2 (09:20→21:46)
[2021-01-18] MEDS: levETIRAcetam 500 MG/5 ML ORAL SOLUTION (UNIT-DOSE CUPS) GT SCH (09:21)
[2021-01-18] MEDS: FERROUS SO4 300 MG/5 ML ORAL SOLN UNIT DOSE CUPS GT SCH ×2 (09:21→21:46)
[2021-01-18] MEDS: AMINO ACIDS/PROTEIN HYDROLYS 30 ML LIQUID.PKT GT SCH ×2 (09:21→16:37)
[2021-01-18] MEDS: FAMOTIDINE 40 MG/5 ML ORAL SUSPENSION PEG SCH ×2 (09:22→21:46)
[2021-01-18 09:29] LABS: ALBUMIN 1.2 g/dl (3.4-5.0); BLOOD UREA NITROGEN 39.1 mg/dL (7-18); CALCIUM 9.4 mg/dL (8.5-10.1)
[2021-01-18 09:33] LABS: CREATININE 2.7 mg/dL (0.55-1.3)
[2021-01-18 09:35] LABS: BILIRUBIN,TOTAL 0.4 mg/dL (0.2-1); TOT PROT 6.6 g/dl (6.4-8.2)
[2021-01-18] MEDS ORDERED: VANCOMYCIN 1 GRAM (PRE-DOCKED) 1,000 MG/250 ML BAG IVPB ONE (11:15)
[2021-01-18] MEDS ORDERED: EPOETIN ALFA 10,000 UNIT/1 ML VIAL IVPUSH ONE (12:15)
[2021-01-18] MEDS ORDERED: SODIUM CHLORIDE 250 ML IV PRN (12:44)
[2021-01-18] MEDS ORDERED: EPOETIN ALFA-EPBX 10,000 UNIT/ML VIAL IVPUSH ONE (13:15)
[2021-01-18] MEDS: LACTOBACILLUS ACIDOPHILUS 1 TABLET GT SCH ×3 (13:38→21:46)
[2021-01-18] MEDS: CARVEDILOL 3.125 MG TABLET (FP) GT SCH ×2 (15:30→21:46)
[2021-01-18] MEDS: SODIUM HYPOCHLORITE 0.25%- 473 ML BULK BOTTLE TP SCH (16:45)
[2021-01-18] MEDS: ATORVASTATIN CA 40 MG TABLET (FP) GT SCH (21:46)
[2021-01-19] MEDS: BANATROL PLUS POWDER PACKET PEG SCH ×3 (07:01→22:10)
[2021-01-19] MEDS: VANCOMYCIN 250 MG/5 ML ORAL SOLUTION GT SCH ×4 (07:01→23:06)
[2021-01-19] MEDS: LACTOBACILLUS ACIDOPHILUS 1 TABLET GT SCH ×3 (07:01→22:10)
[2021-01-19] MEDS: ALBUTEROL SO4 2.5/IPRATROPIUM 0.5 INH SOL 3 ML VIAL.NEB. NEB SCH ×3 (08:26→19:20)
[2021-01-19 09:54] LABS: EOS % 1.9 % (0-4.5); HEMATOCRIT 22.2 % (35.4-49); HEMOGLOBIN 7.7 GM/dL (11.7-16.9); LYMPH % 17.6 % (8-40); MCH 29.9 pg (25.7-33.7); MCHC 34.7 g/dl (32.0-35.9); MEAN CELL VOLUME 86.2 fl (80-96); MEAN PLT VOLUME 6.6 fl (7.5-11.1); MONO % 5.6 % (3.8-10.2); NEUT % 73.9 % (42.8-82.8); PLATELET COUNT 455 K/MM3 (134-434); RBC 2.58 M/mm3 (4.00-5.60); RDW 18.8 % (11.9-15.9); WHITE BLOOD COUNT 11.7 K/mm3 (4.0-10.0)
[2021-01-19 10:17] LABS: CALCIUM 9.2 mg/dL (8.5-10.1)
[2021-01-19 10:18] LABS: ALBUMIN 1.3 g/dl (3.4-5.0); BLOOD UREA NITROGEN 29.7 mg/dL (7-18)
[2021-01-19 10:23] LABS: TOT PROT 6.9 g/dl (6.4-8.2)
[2021-01-19 10:25] LABS: BILIRUBIN,TOTAL 0.4 mg/dL (0.2-1)
[2021-01-19] MEDS ORDERED: PT OWN MED DRAWER 7, Y5N ONE ×3 (10:25→22:09)
[2021-01-19] MEDS: CARVEDILOL 3.125 MG TABLET (FP) GT SCH ×2 (10:36→22:10)
[2021-01-19] MEDS: FAMOTIDINE 40 MG/5 ML ORAL SUSPENSION PEG SCH ×2 (10:36→22:11)
[2021-01-19] MEDS: FERROUS SO4 300 MG/5 ML ORAL SOLN UNIT DOSE CUPS GT SCH ×2 (10:36→22:10)
[2021-01-19] MEDS: AMINO ACIDS/PROTEIN HYDROLYS 30 ML LIQUID.PKT GT SCH ×2 (10:36→17:37)
[2021-01-19] MEDS: SODIUM HYPOCHLORITE 0.25%- 473 ML BULK BOTTLE TP SCH (10:36)
[2021-01-19] MEDS: HEPARIN NA (PORCINE) 5,000 UNITS/ML 1ML VIAL SQ SCH ×2 (10:36→22:11)
[2021-01-19] MEDS: levETIRAcetam 500 MG/5 ML ORAL SOLUTION (UNIT-DOSE CUPS) GT SCH (10:36)
[2021-01-19 11:52] LABS: PLATELET ESTIMATE NORMAL
[2021-01-19] MEDS: ATORVASTATIN CA 40 MG TABLET (FP) GT SCH (22:10)
[2021-01-20] MEDS: VANCOMYCIN 250 MG/5 ML ORAL SOLUTION GT SCH ×4 (05:12→23:33)
[2021-01-20] MEDS: BANATROL PLUS POWDER PACKET PEG SCH ×3 (05:13→21:09)
[2021-01-20] MEDS: LACTOBACILLUS ACIDOPHILUS 1 TABLET GT SCH ×3 (05:13→21:09)
[2021-01-20] MEDS: ALBUTEROL SO4 2.5/IPRATROPIUM 0.5 INH SOL 3 ML VIAL.NEB. NEB SCH ×3 (07:38→20:00)
[2021-01-20 09:58] LABS: BASO % 0.3 % (0-2.0); EOS % 2.3 % (0-4.5); HEMATOCRIT 26.3 % (35.4-49); HEMOGLOBIN 8.5 GM/dL (11.7-16.9); LYMPH % 16.5 % (8-40); MCH 27.5 pg (25.7-33.7); MCHC 32.3 g/dl (32.0-35.9); MEAN CELL VOLUME 85.2 fl (80-96); MEAN PLT VOLUME 6.4 fl (7.5-11.1); MONO % 6.8 % (3.8-10.2); NEUT % 74.1 % (42.8-82.8); PLATELET COUNT 442 K/MM3 (134-434); RBC 3.09 M/mm3 (4.00-5.60); RDW 18.3 % (11.9-15.9)
[2021-01-20 10:18] LABS: BLOOD UREA NITROGEN 40.8 mg/dL (7-18); CALCIUM 9.4 mg/dL (8.5-10.1)
[2021-01-20 10:19] LABS: ALBUMIN 1.3 g/dl (3.4-5.0)
[2021-01-20 10:21] LABS: CREATININE 2.7 mg/dL (0.55-1.3)
[2021-01-20 10:23] LABS: BILIRUBIN,TOTAL 0.3 mg/dL (0.2-1); TOT PROT 6.9 g/dl (6.4-8.2)
[2021-01-20] MEDS ORDERED: PT OWN MED DRAWER 7, Y5N ONE ×2 (11:02→21:01)
[2021-01-20] MEDS: CARVEDILOL 3.125 MG TABLET (FP) GT SCH ×2 (11:03→21:09)
[2021-01-20] MEDS: AMINO ACIDS/PROTEIN HYDROLYS 30 ML LIQUID.PKT GT SCH ×2 (11:03→18:05)
[2021-01-20] MEDS: FAMOTIDINE 40 MG/5 ML ORAL SUSPENSION PEG SCH ×2 (11:04→21:09)
[2021-01-20] MEDS: SODIUM HYPOCHLORITE 0.25%- 473 ML BULK BOTTLE TP SCH (11:04)
[2021-01-20] MEDS: levETIRAcetam 500 MG/5 ML ORAL SOLUTION (UNIT-DOSE CUPS) GT SCH (11:04)
[2021-01-20] MEDS: HEPARIN NA (PORCINE) 5,000 UNITS/ML 1ML VIAL SQ SCH ×2 (11:04→21:09)
[2021-01-20] MEDS: FERROUS SO4 300 MG/5 ML ORAL SOLN UNIT DOSE CUPS GT SCH ×2 (11:04→21:09)
[2021-01-20] MEDS ORDERED: amLODIPine BESYLATE 5 MG TABLET (FP) PO SCH (15:30)
[2021-01-20] MEDS: ATORVASTATIN CA 40 MG TABLET (FP) GT SCH (21:09)
[2021-01-20] MEDS: FENTANYL PATCH WASTE MC PRN (23:30)
[2021-01-20] MEDS: fentaNYL 25mcg/hr PATCH.TD72 TD SCH (23:32)
[2021-01-21] MEDS: BANATROL PLUS POWDER PACKET PEG SCH ×3 (05:18→22:03)
[2021-01-21] MEDS: VANCOMYCIN 250 MG/5 ML ORAL SOLUTION GT SCH ×4 (05:18→23:45)
[2021-01-21] MEDS: LACTOBACILLUS ACIDOPHILUS 1 TABLET GT SCH ×3 (05:18→22:03)
[2021-01-21] MEDS: ALBUTEROL SO4 2.5/IPRATROPIUM 0.5 INH SOL 3 ML VIAL.NEB. NEB SCH ×3 (08:15→20:50)
[2021-01-21 08:30] LABS: BASO % 0.3 % (0-2.0); EOS % 3.3 % (0-4.5); HEMOGLOBIN 8.1 GM/dL (11.7-16.9); LYMPH % 16.4 % (8-40); MCH 27.3 pg (25.7-33.7); MCHC 32.3 g/dl (32.0-35.9); MEAN CELL VOLUME 84.6 fl (80-96); MEAN PLT VOLUME 6.2 fl (7.5-11.1); MONO % 6.9 % (3.8-10.2); NEUT % 73.1 % (42.8-82.8); PLATELET COUNT 404 K/MM3 (134-434); RBC 2.96 M/mm3 (4.00-5.60); RDW 18.1 % (11.9-15.9); WHITE BLOOD COUNT 8.6 K/mm3 (4.0-10.0)
[2021-01-21] MEDS ORDERED: PT OWN MED DRAWER 7, Y5N ONE (08:47)
[2021-01-21 08:50] LABS: CALCIUM 9.4 mg/dL (8.5-10.1)
[2021-01-21 08:51] LABS: ALBUMIN 1.3 g/dl (3.4-5.0); BLOOD UREA NITROGEN 56.6 mg/dL (7-18)
[2021-01-21 08:54] LABS: CREATININE 3.1 mg/dL (0.55-1.3)
[2021-01-21 08:56] LABS: BILIRUBIN,TOTAL 0.4 mg/dL (0.2-1); TOT PROT 6.7 g/dl (6.4-8.2)
[2021-01-21] MEDS ORDERED: SODIUM CHLORIDE 250 ML IV PRN (08:57)
[2021-01-21] MEDS: AMINO ACIDS/PROTEIN HYDROLYS 30 ML LIQUID.PKT GT SCH ×2 (08:57→16:52)
[2021-01-21] MEDS ORDERED: EPOETIN ALFA-EPBX 10,000 UNIT/ML VIAL IVPUSH ONE (09:00)
[2021-01-21] MEDS: HEPARIN NA (PORCINE) 5,000 UNITS/ML 1ML VIAL SQ SCH ×2 (09:06→22:02)
[2021-01-21] MEDS: FERROUS SO4 300 MG/5 ML ORAL SOLN UNIT DOSE CUPS GT SCH ×2 (09:07→22:02)
[2021-01-21] MEDS: levETIRAcetam 500 MG/5 ML ORAL SOLUTION (UNIT-DOSE CUPS) GT SCH (09:07)
[2021-01-21] MEDS: FAMOTIDINE 40 MG/5 ML ORAL SUSPENSION PEG SCH ×2 (09:08→22:03)
[2021-01-21] MEDS: SODIUM HYPOCHLORITE 0.25%- 473 ML BULK BOTTLE TP SCH (13:00)
[2021-01-21] MEDS: CARVEDILOL 3.125 MG TABLET (FP) GT SCH ×2 (13:18→22:03)
[2021-01-21] MEDS: ATORVASTATIN CA 40 MG TABLET (FP) GT SCH (22:02)
[2021-01-22] MEDS ORDERED: PT OWN MED DRAWER 7, Y5N ONE ×2 (04:36→13:38)
[2021-01-22] MEDS: LACTOBACILLUS ACIDOPHILUS 1 TABLET GT SCH ×3 (05:43→21:24)
[2021-01-22] MEDS: VANCOMYCIN 250 MG/5 ML ORAL SOLUTION GT SCH ×4 (05:43→23:14)
[2021-01-22] MEDS: BANATROL PLUS POWDER PACKET PEG SCH ×3 (05:43→21:24)
[2021-01-22] MEDS: ALBUTEROL SO4 2.5/IPRATROPIUM 0.5 INH SOL 3 ML VIAL.NEB. NEB SCH ×3 (07:50→20:31)
[2021-01-22] MEDS: AMINO ACIDS/PROTEIN HYDROLYS 30 ML LIQUID.PKT GT SCH ×2 (09:15→16:59)
[2021-01-22] MEDS ORDERED: SODIUM CHLORIDE 250 ML IV PRN (10:35)
[2021-01-22] MEDS: CARVEDILOL 3.125 MG TABLET (FP) GT SCH ×2 (10:38→21:24)
[2021-01-22] MEDS: HEPARIN NA (PORCINE) 5,000 UNITS/ML 1ML VIAL SQ SCH ×2 (10:39→21:24)
[2021-01-22] MEDS: FAMOTIDINE 40 MG/5 ML ORAL SUSPENSION PEG SCH ×2 (10:39→21:24)
[2021-01-22] MEDS: FERROUS SO4 300 MG/5 ML ORAL SOLN UNIT DOSE CUPS GT SCH ×2 (10:39→21:24)
[2021-01-22] MEDS: levETIRAcetam 500 MG/5 ML ORAL SOLUTION (UNIT-DOSE CUPS) GT SCH (11:50)
[2021-01-22] MEDS: SODIUM HYPOCHLORITE 0.25%- 473 ML BULK BOTTLE TP SCH (12:30)
[2021-01-22] MEDS: ATORVASTATIN CA 40 MG TABLET (FP) GT SCH (21:24)
[2021-01-23] MEDS: LACTOBACILLUS ACIDOPHILUS 1 TABLET GT SCH ×2 (05:32→16:46)
[2021-01-23] MEDS: VANCOMYCIN 250 MG/5 ML ORAL SOLUTION GT SCH ×3 (05:32→17:49)
[2021-01-23] MEDS: BANATROL PLUS POWDER PACKET PEG SCH ×2 (05:32→16:47)
[2021-01-23] MEDS: ALBUTEROL SO4 2.5/IPRATROPIUM 0.5 INH SOL 3 ML VIAL.NEB. NEB SCH (08:10)
[2021-01-23] MEDS ORDERED: EPOETIN ALFA-EPBX 10,000 UNIT/ML VIAL IVPUSH ONE (08:15)
[2021-01-23 09:22] LABS: HEMATOCRIT 24.2 % (35.4-49); HEMOGLOBIN 7.7 GM/dL (11.7-16.9); MCH 27.4 pg (25.7-33.7); MCHC 31.9 g/dl (32.0-35.9); MEAN CELL VOLUME 85.7 fl (80-96); MEAN PLT VOLUME 6.6 fl (7.5-11.1); PLATELET COUNT 400 K/MM3 (134-434); RBC 2.82 M/mm3 (4.00-5.60); RDW 18.1 % (11.9-15.9)
[2021-01-23] MEDS ORDERED: PT OWN MED DRAWER 7, Y5N ONE (09:27)
[2021-01-23 09:50] LABS: CALCIUM 9.5 mg/dL (8.5-10.1)
[2021-01-23 09:54] LABS: CREATININE 2.7 mg/dL (0.55-1.3)
[2021-01-23] MEDS: levETIRAcetam 500 MG/5 ML ORAL SOLUTION (UNIT-DOSE CUPS) GT SCH (12:26)
[2021-01-23] MEDS: FERROUS SO4 300 MG/5 ML ORAL SOLN UNIT DOSE CUPS GT SCH (12:26)
[2021-01-23] MEDS: HEPARIN NA (PORCINE) 5,000 UNITS/ML 1ML VIAL SQ SCH (12:27)
[2021-01-23] MEDS: SODIUM HYPOCHLORITE 0.25%- 473 ML BULK BOTTLE TP SCH (12:27)
[2021-01-23] MEDS: CARVEDILOL 3.125 MG TABLET (FP) GT SCH (12:27)
[2021-01-23] MEDS: FAMOTIDINE 40 MG/5 ML ORAL SUSPENSION PEG SCH (12:27)
[2021-01-23] MEDS: AMINO ACIDS/PROTEIN HYDROLYS 30 ML LIQUID.PKT GT SCH ×2 (12:27→17:49)
[2021-01-23 18:10] VITALS: BP 125/83; PULSE 114; TEMP 98.1
== END 2021-01-23 19:38 | DRG 720 ==
LOC: JER 15:26 → JERBED 18:07 → JICU 01-10 01:48 → J5S 01-11 00:17
PROVIDERS: ADMIT Hospitalist; ATTEND Family Medicine
PROC: 5A1955Z Respiratory Ventilation, Greater than 96 Consecutive Hours (ICD-10-PCS; principal; 2021-01-09)
PROC: 30233N1 Transfusion of Nonautologous Red Blood Cells into Peripheral Vein, Percutaneous Approach (ICD-10-PCS; 2021-01-09)
PROC: 5A1D70Z Performance of Urinary Filtration, Intermittent, Less than 6 Hours Per Day (ICD-10-PCS; 2021-01-18)
PROC: 5A1D70Z Performance of Urinary Filtration, Intermittent, Less than 6 Hours Per Day (ICD-10-PCS; 2021-01-21)
PROC: 5A1D70Z Performance of Urinary Filtration, Intermittent, Less than 6 Hours Per Day (ICD-10-PCS; 2021-01-23)
DX: A41.89 Other specified sepsis (principal); J18.9 Pneumonia, unspecified organism; R65.21 Severe sepsis with septic shock; R50.9 Fever, unspecified; N39.0 Urinary tract infection, site not specified; J96.11 Chronic respiratory failure with hypoxia; G93.41 Metabolic encephalopathy; L89.154 Pressure ulcer of sacral region, stage 4; L89.314 Pressure ulcer of right buttock, stage 4; E83.39 Other disorders of phosphorus metabolism; A04.72 Enterocolitis due to Clostridium difficile, not specified as recurrent; L89.524 Pressure ulcer of left ankle, stage 4; D69.6 Thrombocytopenia, unspecified; G40.909 Epilepsy, unspecified, not intractable, without status epilepticus; L02.211 Cutaneous abscess of abdominal wall; L89.893 Pressure ulcer of other site, stage 3; L89.510 Pressure ulcer of right ankle, unstageable; E46 Unspecified protein-calorie malnutrition; J98.11 Atelectasis; E78.5 Hyperlipidemia, unspecified; K94.23 Gastrostomy malfunction; I12.0 Hypertensive chronic kidney disease with stage 5 chronic kidney disease or end stage renal disease; N18.6 End stage renal disease; Z99.2 Dependence on renal dialysis; E87.70 Fluid overload, unspecified; D63.1 Anemia in chronic kidney disease; K21.9 Gastro-esophageal reflux disease without esophagitis; E66.9 Obesity, unspecified; Z68.34 Body mass index [BMI] 34.0-34.9, adult; R00.0 Tachycardia, unspecified; D72.829 Elevated white blood cell count, unspecified; Z93.0 Tracheostomy status; Z93.1 Gastrostomy status; B94.8 Sequelae of other specified infectious and parasitic diseases
CPT/HCPCS: 36415; 36430; 71045-TC-FY; 74176-TC; 80048; 80053; 81003; 82272; 82607; 82728; 82803; 83540; 83550; 83605; 83735; 84100; 84439; 84443; 84484; 85025; 85027; 85610; 85730; 86803; 86850; 86900; 86901; 86922; 87040; 87070; 87077; 87086; 87186; 87205; 87324; 87340; 87449; 93005; 93010; 93306-TC; 94002; 94640; 99285-25; C9803; G0480; J0131; J0878; J1644; P9047; P9058; Q5106; U0003; U0005

== ENCOUNTER 2021-02-09 05:46 | Inpatient (IN) | payer OTHER ==
[2021-02-09] MEDS ORDERED: GENTAMICIN INJECTION 100 MG in SODIUM CHLORIDE 97.5 ML IVPB ONE (07:14)
[2021-02-09] MEDS ORDERED: VANCOMYCIN 1 GM in D5W (PRE-DOCKED) 1,000 MG/250 ML IVPB ONE (07:17)
[2021-02-09 08:19] LABS: RBC 2.48 M/mm3 (4.00-5.60); WHITE BLOOD COUNT 12.9 K/mm3 (4.0-10.0)
[2021-02-09 08:20] LABS: BASO % 0.3 % (0-2.0); EOS % 4.2 % (0-4.5); HEMATOCRIT 22.1 % (35.4-49); LYMPH % 16.4 % (8-40); MCH 27.4 pg (25.7-33.7); MCHC 30.7 g/dl (32.0-35.9); MEAN CELL VOLUME 89.1 fl (80-96); MEAN PLT VOLUME 7.1 fl (7.5-11.1); MONO % 8.1 % (3.8-10.2); PLATELET COUNT 482 K/MM3 (134-434); RDW 18.5 % (11.9-15.9)
[2021-02-09 08:23] LABS: INR 1.13 (0.83-1.09); PROTHROMBIN TIME (PATIENT) 13.9 SEC (9.7-13.0)
[2021-02-09 08:26] LABS: ACTIVATED PTT 34.6 SECONDS (25.2-36.5)
[2021-02-09 08:32] LABS: HEMOGLOBIN 6.8 GM/dL (11.7-16.9)
[2021-02-09 08:35] LABS: CHLORIDE 98 mmol/L (98-107); SODIUM 136 mmol/L (136-145)
[2021-02-09 08:37] LABS: BLOOD UREA NITROGEN 28.5 mg/dL (7-18); CALCIUM 9.8 mg/dL (8.5-10.1)
[2021-02-09 08:38] LABS: ALBUMIN 1.4 g/dl (3.4-5.0); ANION GAP 6 MMOL/L (8-16); CO2 32 mmol/L (21-32)
[2021-02-09 08:40] LABS: SGPT/ALT 17 U/L (13-61)
[2021-02-09 08:41] LABS: CREATININE 1.9 mg/dL (0.55-1.3); SGOT/AST 19 U/L (15-37)
[2021-02-09 08:42] LABS: BILIRUBIN,TOTAL 0.4 mg/dL (0.2-1); TOT PROT 7.1 g/dl (6.4-8.2)
[2021-02-09 08:43] LABS: ALK PHOS 173 U/L (45-117)
[2021-02-09 08:45] LABS: LACTIC ACID 2.3 mmol/L (0.4-2.0)
[2021-02-09] MEDS ORDERED: VANCOMYCIN 1 GRAM (PRE-DOCKED) 1,000 MG/250 ML BAG IVPB ONE (08:50)
[2021-02-09 08:52] LABS: GLUCOSE,RANDOM 70 mg/dL (74-106)
[2021-02-09 09:06] LABS: EPI CELLS >36 /uL (0-25.1); HYALINE CASTS 61 /uL (0-3.1); PH,URINE 6.5 (5.0-8.0); URINE APPEARANCE TURBID; URINE BACTERIA >9,000 /uL (0-1359); URINE BILIRUBIN NEGATIVE (NEGATIVE); URINE COLOR YELLOW; URINE GLUCOSE (UA) NEGATIVE (NEGATIVE); URINE KETONE NEGATIVE (NEGATIVE); URINE LEUK ESTERASE 3+ (NEGATIVE); URINE NITRITE NEGATIVE (NEGATIVE); URINE PROTEIN 3+ (NEGATIVE); URINE UROBILINOGEN 0.2 mg/dL (0.2-1.0); URINE WBC 16346 /uL (0-25.8)
[2021-02-09] MEDS ORDERED: GENTAMICIN SO4 80 MG/2 ML VIAL ONE (09:08)
[2021-02-09 09:19] LABS: YEAST NON SEEN (NEGATIVE)
[2021-02-09 09:29] LABS: MAGNESIUM 1.9 mg/dL (1.8-2.4)
[2021-02-09] MEDS ORDERED: ALBUTEROL SO4 HFA INHALER IH PRN (13:46)
[2021-02-09] MEDS ORDERED: FENTANYL PATCH WASTE MC PRN (13:46)
[2021-02-09] MEDS ORDERED: ACETAMINOPHEN 325 MG TABLET (FP) PO PRN (13:46)
[2021-02-09] MEDS ORDERED: PATIENT'S OWN MEDICATION (NON-FORMULARY) (Midodrine Hcl [Midodrine Hcl] 10 MG Tablet) PO SCH (14:00)
[2021-02-09] MEDS: fentaNYL 25mcg/hr PATCH.TD72 TD SCH (15:00)
[2021-02-09] MEDS ORDERED: fentaNYL 25mcg/hr PATCH.TD72 ONE (15:28)
[2021-02-09] MEDS: ALBUTEROL SO4 2.5/IPRATROPIUM 0.5 INH SOL 3 ML VIAL.NEB. NEB SCH ×2 (16:02→20:55)
[2021-02-09] MEDS ORDERED: PIPERACILLIN/TAZOB 3.375 GM 3.375 GM/50 ML BAG IVPB ONE (16:42)
[2021-02-09] MEDS ORDERED: ALBUTEROL SO4 2.5/IPRATROPIUM 0.5 INH SOL 3 ML VIAL.NEB. NEB ONE (20:55)
[2021-02-09] MEDS ORDERED: PT OWN MED DRAWER 7, Y5N ONE (23:18)
[2021-02-09] MEDS: FERROUS SO4 300 MG/5 ML ORAL SOLN UNIT DOSE CUPS GT SCH (23:35)
[2021-02-09] MEDS: levETIRAcetam 500 MG/5 ML ORAL SOLUTION (UNIT-DOSE CUPS) GT SCH (23:35)
[2021-02-10] MEDS: FAMOTIDINE 40 MG/5 ML ORAL SUSPENSION PEG SCH ×3 (00:41→22:54)
[2021-02-10] MEDS: ALBUTEROL SO4 2.5/IPRATROPIUM 0.5 INH SOL 3 ML VIAL.NEB. NEB SCH ×4 (08:44→20:00)
[2021-02-10] MEDS ORDERED: levETIRAcetam 500 MG/5 ML ORAL SOLUTION (UNIT-DOSE CUPS) GT SCH (10:00)
[2021-02-10] MEDS ORDERED: FAMOTIDINE 10 MG TABLET PO SCH (10:00)
[2021-02-10] MEDS ORDERED: MULTIVITAMINS (DAILY MVI) TABLET (FP) PO SCH (10:00)
[2021-02-10] MEDS ORDERED: MIDODRINE HCL 5 MG TABLET GT SCH (10:00)
[2021-02-10 10:45] LABS: BASO % 0.4 % (0-2.0); EOS % 3.9 % (0-4.5); HEMATOCRIT 24.2 % (35.4-49); HEMOGLOBIN 7.8 GM/dL (11.7-16.9); LYMPH % 14.9 % (8-40); MCH 27.7 pg (25.7-33.7); MCHC 32.4 g/dl (32.0-35.9); MEAN CELL VOLUME 85.6 fl (80-96); MEAN PLT VOLUME 6.4 fl (7.5-11.1); MONO % 6.7 % (3.8-10.2); NEUT % 74.1 % (42.8-82.8); PLATELET COUNT 466 K/MM3 (134-434); RBC 2.83 M/mm3 (4.00-5.60); RDW 17.5 % (11.9-15.9); WHITE BLOOD COUNT 11.1 K/mm3 (4.0-10.0)
[2021-02-10 11:09] LABS: CALCIUM 10.3 mg/dL (8.5-10.1)
[2021-02-10 11:10] LABS: ALBUMIN 1.5 g/dl (3.4-5.0)
[2021-02-10 11:13] LABS: CREATININE 2.7 mg/dL (0.55-1.3)
[2021-02-10 11:14] LABS: BILIRUBIN,TOTAL 0.6 mg/dL (0.2-1); TOT PROT 6.8 g/dl (6.4-8.2)
[2021-02-10] MEDS ORDERED: PIPERACILLIN/TAZOB 2.25 GM 2.25 GM in DEXTROSE 5%-WATER - 50 ML IVPB ONE (11:30)
[2021-02-10] MEDS: FERROUS SO4 300 MG/5 ML ORAL SOLN UNIT DOSE CUPS GT SCH ×2 (12:23→22:53)
[2021-02-10] MEDS: SODIUM HYPOCHLORITE 0.25%- 473 ML BULK BOTTLE TP SCH ×2 (12:24→15:56)
[2021-02-10] MEDS: LOPERAMIDE HCL 2 MG CAPSULE GT SCH (12:25)
[2021-02-10] MEDS: COLLAGENASE CLOSTRIDIUM HIST. 30 GRAMS TUBE TP SCH (12:25)
[2021-02-10] MEDS: VANCOMYCIN 250 MG/5 ML ORAL SOLUTION PO SCH (12:26)
[2021-02-10] MEDS ORDERED: PT OWN MED DRAWER 7, Y5N ONE ×3 (12:28→18:09)
[2021-02-10] MEDS ORDERED: DEXTROSE 5%-WATER - 50 ML IVPB ONE ×2 (12:29→18:09)
[2021-02-10] MEDS ORDERED: PIPERACILLIN/TAZOBACTAM 2.25 GM VIAL IVPB ONE ×2 (12:29→18:09)
[2021-02-10] MEDS: CARVEDILOL 3.125 MG TABLET (FP) PO SCH ×2 (12:30→22:53)
[2021-02-10] MEDS: levETIRAcetam 500 MG/5 ML ORAL SOLUTION (UNIT-DOSE CUPS) GT SCH (12:51)
[2021-02-10] MEDS ORDERED: SODIUM CHLORIDE 250 ML IV PRN (17:34)
[2021-02-10] MEDS ORDERED: PIPERACILLIN/TAZOB 2.25 GM 2.25 GM in DEXTROSE 5%-WATER - 50 ML IVPB SCH (18:00)
[2021-02-10] MEDS: AMINO ACIDS/PROTEIN HYDROLYS 30 ML LIQUID.PKT GT SCH (18:07)
[2021-02-10] MEDS: MULTIVIT-MINERALS ORAL LIQUID GT SCH (18:07)
[2021-02-10] MEDS: PIPERACILLIN/TAZOB 2.25 GM 2.25 GM in DEXTROSE 5%-WATER - 50 ML IVPB SCH (18:10)
[2021-02-10] MEDS: ATORVASTATIN CA 40 MG TABLET (FP) GT SCH (22:53)
[2021-02-11] MEDS ORDERED: PIPERACILLIN/TAZOBACTAM 2.25 GM VIAL IVPB ONE ×3 (01:07→17:47)
[2021-02-11] MEDS ORDERED: DEXTROSE 5%-WATER - 50 ML IVPB ONE ×3 (01:07→17:47)
[2021-02-11] MEDS: PIPERACILLIN/TAZOB 2.25 GM 2.25 GM in DEXTROSE 5%-WATER - 50 ML IVPB SCH ×3 (01:25→18:41)
[2021-02-11] MEDS: ALBUTEROL SO4 2.5/IPRATROPIUM 0.5 INH SOL 3 ML VIAL.NEB. NEB SCH ×4 (08:04→20:11)
[2021-02-11] MEDS ORDERED: EPOETIN ALFA-EPBX 10,000 UNIT/ML VIAL IVPUSH ONE (09:44)
[2021-02-11 10:19] LABS: ALBUMIN 1.4 g/dl (3.4-5.0); BLOOD UREA NITROGEN 38.5 mg/dL (7-18); CALCIUM 9.6 mg/dL (8.5-10.1); MAGNESIUM 2.1 mg/dL (1.8-2.4)
[2021-02-11 10:21] LABS: BASO % 0.2 % (0-2.0); EOS % 5.4 % (0-4.5); HEMATOCRIT 23.9 % (35.4-49); HEMOGLOBIN 7.6 GM/dL (11.7-16.9); LYMPH % 14.1 % (8-40); MCH 27.9 pg (25.7-33.7); MCHC 31.9 g/dl (32.0-35.9); MEAN CELL VOLUME 87.3 fl (80-96); MEAN PLT VOLUME 6.7 fl (7.5-11.1); NEUT % 72.3 % (42.8-82.8); PLATELET COUNT 453 K/MM3 (134-434); RBC 2.73 M/mm3 (4.00-5.60); RDW 17.9 % (11.9-15.9); WHITE BLOOD COUNT 10.1 K/mm3 (4.0-10.0)
[2021-02-11 10:22] LABS: CREATININE 2.7 mg/dL (0.55-1.3)
[2021-02-11 10:23] LABS: PHOSPHOROUS 2.6 mg/dL (2.5-4.9)
[2021-02-11 10:24] LABS: BILIRUBIN,TOTAL 0.4 mg/dL (0.2-1); TOT PROT 6.5 g/dl (6.4-8.2)
[2021-02-11] MEDS: CARVEDILOL 3.125 MG TABLET (FP) PO SCH ×2 (11:55→22:54)
[2021-02-11] MEDS: levETIRAcetam 500 MG/5 ML ORAL SOLUTION (UNIT-DOSE CUPS) GT SCH (11:56)
[2021-02-11] MEDS: FAMOTIDINE 40 MG/5 ML ORAL SUSPENSION PEG SCH ×2 (11:56→22:53)
[2021-02-11] MEDS: FERROUS SO4 300 MG/5 ML ORAL SOLN UNIT DOSE CUPS GT SCH ×2 (11:57→22:54)
[2021-02-11] MEDS: LOPERAMIDE HCL 2 MG CAPSULE GT SCH (11:57)
[2021-02-11] MEDS: MULTIVIT-MINERALS ORAL LIQUID GT SCH (11:57)
[2021-02-11] MEDS: VANCOMYCIN 250 MG/5 ML ORAL SOLUTION PO SCH ×3 (12:00→23:58)
[2021-02-11] MEDS: AMINO ACIDS/PROTEIN HYDROLYS 30 ML LIQUID.PKT GT SCH ×2 (12:01→17:36)
[2021-02-11] MEDS: SODIUM HYPOCHLORITE 0.25%- 473 ML BULK BOTTLE TP SCH (15:00)
[2021-02-11] MEDS ORDERED: GENTAMICIN IVPB ONE (16:30)
[2021-02-11] MEDS ORDERED: WATER IVPB ONE (16:30)
[2021-02-11] MEDS ORDERED: DEXTROSE 5% IVPB ONE (16:30)
[2021-02-11] MEDS: COLLAGENASE CLOSTRIDIUM HIST. 30 GRAMS TUBE TP SCH (17:23)
[2021-02-11] MEDS: ATORVASTATIN CA 40 MG TABLET (FP) GT SCH (22:54)
[2021-02-12] MEDS ORDERED: DEXTROSE 5%-WATER - 50 ML IVPB ONE ×3 (02:26→16:52)
[2021-02-12] MEDS ORDERED: PIPERACILLIN/TAZOBACTAM 2.25 GM VIAL IVPB ONE ×2 (02:26→10:30)
[2021-02-12] MEDS: PIPERACILLIN/TAZOB 2.25 GM 2.25 GM in DEXTROSE 5%-WATER - 50 ML IVPB SCH ×2 (02:48→10:54)
[2021-02-12] MEDS: VANCOMYCIN 250 MG/5 ML ORAL SOLUTION PO SCH ×3 (05:00→17:12)
[2021-02-12] MEDS: ALBUTEROL SO4 2.5/IPRATROPIUM 0.5 INH SOL 3 ML VIAL.NEB. NEB SCH ×4 (08:20→20:06)
[2021-02-12 09:17] LABS: BASO % 0.5 % (0-2.0); EOS % 4.7 % (0-4.5); HEMATOCRIT 25.1 % (35.4-49); HEMOGLOBIN 7.9 GM/dL (11.7-16.9); LYMPH % 16.1 % (8-40); MCH 27.8 pg (25.7-33.7); MCHC 31.3 g/dl (32.0-35.9); MEAN CELL VOLUME 88.8 fl (80-96); MEAN PLT VOLUME 6.8 fl (7.5-11.1); MONO % 9.1 % (3.8-10.2); NEUT % 69.6 % (42.8-82.8); PLATELET COUNT 430 K/MM3 (134-434); RBC 2.83 M/mm3 (4.00-5.60); RDW 17.6 % (11.9-15.9)
[2021-02-12 10:10] LABS: CALCIUM 9.6 mg/dL (8.5-10.1)
[2021-02-12 10:11] LABS: ALBUMIN 1.4 g/dl (3.4-5.0)
[2021-02-12 10:12] LABS: BLOOD UREA NITROGEN 31.4 mg/dL (7-18)
[2021-02-12 10:15] LABS: CREATININE 2.3 mg/dL (0.55-1.3); PHOSPHOROUS 2.2 mg/dL (2.5-4.9)
[2021-02-12 10:16] LABS: BILIRUBIN,TOTAL 0.3 mg/dL (0.2-1); TOT PROT 6.6 g/dl (6.4-8.2)
[2021-02-12] MEDS: CARVEDILOL 3.125 MG TABLET (FP) PO SCH ×2 (10:54→21:59)
[2021-02-12] MEDS: AMINO ACIDS/PROTEIN HYDROLYS 30 ML LIQUID.PKT GT SCH ×2 (10:54→17:11)
[2021-02-12] MEDS: FERROUS SO4 300 MG/5 ML ORAL SOLN UNIT DOSE CUPS GT SCH ×2 (10:54→21:59)
[2021-02-12] MEDS: LOPERAMIDE HCL 2 MG CAPSULE GT SCH (10:55)
[2021-02-12] MEDS: MULTIVIT-MINERALS ORAL LIQUID GT SCH (10:55)
[2021-02-12] MEDS: levETIRAcetam 500 MG/5 ML ORAL SOLUTION (UNIT-DOSE CUPS) GT SCH (10:56)
[2021-02-12] MEDS: FAMOTIDINE 40 MG/5 ML ORAL SUSPENSION PEG SCH ×2 (10:56→22:00)
[2021-02-12] MEDS: fentaNYL 25mcg/hr PATCH.TD72 TD SCH (13:28)
[2021-02-12] MEDS: COLLAGENASE CLOSTRIDIUM HIST. 30 GRAMS TUBE TP SCH (16:06)
[2021-02-12] MEDS: SODIUM HYPOCHLORITE 0.25%- 473 ML BULK BOTTLE TP SCH (16:06)
[2021-02-12] MEDS ORDERED: cefTAZidime PENTAHYDRATE 1 GM VIAL (RESTRICTED TO ID) ONE (16:52)
[2021-02-12] MEDS: CEFTAZIDIME PENTAHYDRATE 1 GM in DEXTROSE 5%-WATER - 50 ML IVPB SCH (17:11)
[2021-02-12] MEDS: ATORVASTATIN CA 40 MG TABLET (FP) GT SCH (21:59)
[2021-02-13] MEDS: VANCOMYCIN 250 MG/5 ML ORAL SOLUTION PO SCH ×5 (00:30→23:06)
[2021-02-13] MEDS: ALBUTEROL SO4 2.5/IPRATROPIUM 0.5 INH SOL 3 ML VIAL.NEB. NEB SCH ×4 (08:00→20:18)
[2021-02-13 08:56] LABS: BASO % 0.5 % (0-2.0); EOS % 5.8 % (0-4.5); HEMOGLOBIN 7.7 GM/dL (11.7-16.9); LYMPH % 22.4 % (8-40); MCH 27.6 pg (25.7-33.7); MCHC 30.9 g/dl (32.0-35.9); MEAN CELL VOLUME 89.1 fl (80-96); MEAN PLT VOLUME 6.9 fl (7.5-11.1); MONO % 6.8 % (3.8-10.2); NEUT % 64.5 % (42.8-82.8); PLATELET COUNT 431 K/MM3 (134-434); RDW 17.5 % (11.9-15.9); WHITE BLOOD COUNT 8.5 K/mm3 (4.0-10.0)
[2021-02-13 09:11] LABS: ALBUMIN 1.4 g/dl (3.4-5.0); BLOOD UREA NITROGEN 44.7 mg/dL (7-18); MAGNESIUM 2.2 mg/dL (1.8-2.4)
[2021-02-13 09:14] LABS: PHOSPHOROUS 2.4 mg/dL (2.5-4.9)
[2021-02-13 09:15] LABS: BILIRUBIN,TOTAL 0.3 mg/dL (0.2-1); TOT PROT 6.6 g/dl (6.4-8.2)
[2021-02-13] MEDS ORDERED: EPOETIN ALFA-EPBX 10,000 UNIT/ML VIAL IVPUSH ONE (10:15)
[2021-02-13] MEDS ORDERED: PT OWN MED DRAWER 7, Y5N ONE ×2 (13:13→23:03)
[2021-02-13] MEDS: MULTIVIT-MINERALS ORAL LIQUID GT SCH (13:52)
[2021-02-13] MEDS: FERROUS SO4 300 MG/5 ML ORAL SOLN UNIT DOSE CUPS GT SCH ×2 (13:52→23:07)
[2021-02-13] MEDS: CARVEDILOL 3.125 MG TABLET (FP) PO SCH ×2 (13:52→23:07)
[2021-02-13] MEDS: LOPERAMIDE HCL 2 MG CAPSULE GT SCH (13:53)
[2021-02-13] MEDS: COLLAGENASE CLOSTRIDIUM HIST. 30 GRAMS TUBE TP SCH (13:53)
[2021-02-13] MEDS: SODIUM HYPOCHLORITE 0.25%- 473 ML BULK BOTTLE TP SCH (13:53)
[2021-02-13] MEDS: AMINO ACIDS/PROTEIN HYDROLYS 30 ML LIQUID.PKT GT SCH ×2 (13:54→17:44)
[2021-02-13] MEDS: FAMOTIDINE 40 MG/5 ML ORAL SUSPENSION PEG SCH ×2 (13:55→23:07)
[2021-02-13] MEDS: levETIRAcetam 500 MG/5 ML ORAL SOLUTION (UNIT-DOSE CUPS) GT SCH (13:56)
[2021-02-13] MEDS ORDERED: SODIUM CHLORIDE 250 ML IV PRN (15:25)
[2021-02-13] MEDS ORDERED: DEXTROSE 5%-WATER - 50 ML IVPB ONE (17:12)
[2021-02-13] MEDS ORDERED: cefTAZidime PENTAHYDRATE 1 GM VIAL (RESTRICTED TO ID) ONE (17:12)
[2021-02-13] MEDS: CEFTAZIDIME PENTAHYDRATE 1 GM in DEXTROSE 5%-WATER - 50 ML IVPB SCH (17:44)
[2021-02-13] MEDS: ATORVASTATIN CA 40 MG TABLET (FP) GT SCH (23:07)
[2021-02-14] MEDS: VANCOMYCIN 250 MG/5 ML ORAL SOLUTION PO SCH ×4 (05:35→23:32)
[2021-02-14] MEDS: ALBUTEROL SO4 2.5/IPRATROPIUM 0.5 INH SOL 3 ML VIAL.NEB. NEB SCH ×2 (08:20→12:02)
[2021-02-14] MEDS ORDERED: VANCOMYCIN 250 MG/5 ML ORAL SOLUTION GT SCH (10:00)
[2021-02-14] MEDS ORDERED: VANCOMYCIN 250 MG/5 ML ORAL SOLUTION PO SCH (10:00)
[2021-02-14] MEDS ORDERED: PT OWN MED DRAWER 7, Y5N ONE (11:19)
[2021-02-14] MEDS: AMINO ACIDS/PROTEIN HYDROLYS 30 ML LIQUID.PKT GT SCH ×2 (11:26→16:56)
[2021-02-14] MEDS: CARVEDILOL 3.125 MG TABLET (FP) PO SCH ×2 (11:26→22:46)
[2021-02-14] MEDS: MULTIVIT-MINERALS ORAL LIQUID GT SCH (11:27)
[2021-02-14] MEDS: LOPERAMIDE HCL 2 MG CAPSULE GT SCH (11:27)
[2021-02-14] MEDS: levETIRAcetam 500 MG/5 ML ORAL SOLUTION (UNIT-DOSE CUPS) GT SCH (11:27)
[2021-02-14] MEDS: FAMOTIDINE 40 MG/5 ML ORAL SUSPENSION PEG SCH ×2 (11:27→22:49)
[2021-02-14] MEDS: FERROUS SO4 300 MG/5 ML ORAL SOLN UNIT DOSE CUPS GT SCH ×2 (11:27→22:45)
[2021-02-14] MEDS: SODIUM HYPOCHLORITE 0.25%- 473 ML BULK BOTTLE TP SCH (11:28)
[2021-02-14] MEDS: COLLAGENASE CLOSTRIDIUM HIST. 30 GRAMS TUBE TP SCH (11:28)
[2021-02-14 15:58] VITALS: BMI 31.8
[2021-02-14] MEDS ORDERED: cefTAZidime PENTAHYDRATE 1 GM VIAL (RESTRICTED TO ID) ONE (16:46)
[2021-02-14] MEDS ORDERED: DEXTROSE 5%-WATER - 50 ML IVPB ONE (16:47)
[2021-02-14] MEDS: CEFTAZIDIME PENTAHYDRATE 1 GM in DEXTROSE 5%-WATER - 50 ML IVPB SCH (16:56)
[2021-02-14] MEDS: ATORVASTATIN CA 40 MG TABLET (FP) GT SCH (22:45)
[2021-02-15] MEDS: VANCOMYCIN 250 MG/5 ML ORAL SOLUTION PO SCH ×4 (07:37→23:15)
[2021-02-15 08:48] LABS: BASO % 0.6 % (0-2.0); EOS % 7.3 % (0-4.5); HEMATOCRIT 26.8 % (35.4-49); HEMOGLOBIN 8.4 GM/dL (11.7-16.9); LYMPH % 18.3 % (8-40); MCH 27.7 pg (25.7-33.7); MCHC 31.3 g/dl (32.0-35.9); MEAN CELL VOLUME 88.6 fl (80-96); MEAN PLT VOLUME 6.6 fl (7.5-11.1); MONO % 7.6 % (3.8-10.2); NEUT % 66.2 % (42.8-82.8); PLATELET COUNT 475 K/MM3 (134-434); RBC 3.02 M/mm3 (4.00-5.60); RDW 17.5 % (11.9-15.9); WHITE BLOOD COUNT 10.8 K/mm3 (4.0-10.0)
[2021-02-15 08:59] LABS: ALBUMIN 1.6 g/dl (3.4-5.0); CALCIUM 10.6 mg/dL (8.5-10.1)
[2021-02-15 09:00] LABS: BLOOD UREA NITROGEN 44.7 mg/dL (7-18)
[2021-02-15 09:03] LABS: CREATININE 2.9 mg/dL (0.55-1.3)
[2021-02-15 09:04] LABS: BILIRUBIN,TOTAL 0.6 mg/dL (0.2-1)
[2021-02-15] MEDS: AMINO ACIDS/PROTEIN HYDROLYS 30 ML LIQUID.PKT GT SCH ×2 (09:11→17:16)
[2021-02-15] MEDS: FERROUS SO4 300 MG/5 ML ORAL SOLN UNIT DOSE CUPS GT SCH ×2 (09:11→22:01)
[2021-02-15] MEDS: MULTIVIT-MINERALS ORAL LIQUID GT SCH (10:07)
[2021-02-15] MEDS: FAMOTIDINE 40 MG/5 ML ORAL SUSPENSION PEG SCH ×2 (10:07→22:02)
[2021-02-15] MEDS: LOPERAMIDE HCL 2 MG CAPSULE GT SCH (10:15)
[2021-02-15] MEDS ORDERED: SODIUM CHLORIDE 250 ML IV PRN (12:08)
[2021-02-15] MEDS ORDERED: EPOETIN ALFA-EPBX 10,000 UNIT/ML VIAL SQ ONE (12:30)
[2021-02-15] MEDS: fentaNYL 25mcg/hr PATCH.TD72 TD SCH (14:20)
[2021-02-15] MEDS: FENTANYL PATCH WASTE TD PRN (14:27)
[2021-02-15] MEDS: SODIUM HYPOCHLORITE 0.25%- 473 ML BULK BOTTLE TP SCH (15:15)
[2021-02-15] MEDS: COLLAGENASE CLOSTRIDIUM HIST. 30 GRAMS TUBE TP SCH (15:15)
[2021-02-15] MEDS ORDERED: cefTAZidime PENTAHYDRATE 1 GM VIAL (RESTRICTED TO ID) ONE (15:56)
[2021-02-15] MEDS ORDERED: DEXTROSE 5%-WATER - 50 ML IVPB ONE (15:57)
[2021-02-15] MEDS: CARVEDILOL 3.125 MG TABLET (FP) PO SCH ×2 (16:19→22:01)
[2021-02-15] MEDS: levETIRAcetam 500 MG/5 ML ORAL SOLUTION (UNIT-DOSE CUPS) GT SCH (16:20)
[2021-02-15] MEDS: CEFTAZIDIME PENTAHYDRATE 1 GM in DEXTROSE 5%-WATER - 50 ML IVPB SCH (16:21)
[2021-02-15] MEDS: ATORVASTATIN CA 40 MG TABLET (FP) GT SCH (22:01)
[2021-02-16] MEDS: VANCOMYCIN 250 MG/5 ML ORAL SOLUTION PO SCH ×4 (05:15→23:34)
[2021-02-16 09:37] LABS: BASO % 0.8 % (0-2.0); EOS % 7.4 % (0-4.5); HEMATOCRIT 28.5 % (35.4-49); HEMOGLOBIN 8.9 GM/dL (11.7-16.9); LYMPH % 19.9 % (8-40); MCH 27.9 pg (25.7-33.7); MCHC 31.3 g/dl (32.0-35.9); MEAN CELL VOLUME 89.3 fl (80-96); MEAN PLT VOLUME 6.8 fl (7.5-11.1); NEUT % 63.9 % (42.8-82.8); PLATELET COUNT 444 K/MM3 (134-434); RBC 3.19 M/mm3 (4.00-5.60); RDW 17.3 % (11.9-15.9); WHITE BLOOD COUNT 9.4 K/mm3 (4.0-10.0)
[2021-02-16 09:46] LABS: ALBUMIN 1.7 g/dl (3.4-5.0); BLOOD UREA NITROGEN 31.4 mg/dL (7-18); CALCIUM 10.2 mg/dL (8.5-10.1)
[2021-02-16 09:49] LABS: CREATININE 2.1 mg/dL (0.55-1.3)
[2021-02-16 09:51] LABS: BILIRUBIN,TOTAL 0.4 mg/dL (0.2-1); TOT PROT 7.3 g/dl (6.4-8.2)
[2021-02-16] MEDS ORDERED: PT OWN MED DRAWER 7, Y5N ONE ×2 (10:59→21:07)
[2021-02-16] MEDS: AMINO ACIDS/PROTEIN HYDROLYS 30 ML LIQUID.PKT GT SCH ×2 (11:10→17:18)
[2021-02-16] MEDS: MULTIVIT-MINERALS ORAL LIQUID GT SCH (11:11)
[2021-02-16] MEDS: CARVEDILOL 3.125 MG TABLET (FP) PO SCH ×2 (11:12→21:14)
[2021-02-16] MEDS: FERROUS SO4 300 MG/5 ML ORAL SOLN UNIT DOSE CUPS GT SCH ×2 (11:13→21:14)
[2021-02-16] MEDS: SODIUM HYPOCHLORITE 0.25%- 473 ML BULK BOTTLE TP SCH (11:14)
[2021-02-16] MEDS: COLLAGENASE CLOSTRIDIUM HIST. 30 GRAMS TUBE TP SCH (11:14)
[2021-02-16] MEDS: LOPERAMIDE HCL 2 MG CAPSULE GT SCH (11:15)
[2021-02-16] MEDS: levETIRAcetam 500 MG/5 ML ORAL SOLUTION (UNIT-DOSE CUPS) GT SCH (11:19)
[2021-02-16] MEDS: FAMOTIDINE 40 MG/5 ML ORAL SUSPENSION PEG SCH ×2 (11:20→21:14)
[2021-02-16] MEDS ORDERED: ACETAMINOPHEN 650 MG/20.3 ML ORAL SOLUTION (CUPS) PO PRN (14:18)
[2021-02-16] MEDS ORDERED: DEXTROSE 5%-WATER - 50 ML IVPB ONE (17:10)
[2021-02-16] MEDS ORDERED: cefTAZidime PENTAHYDRATE 1 GM VIAL (RESTRICTED TO ID) ONE (17:10)
[2021-02-16] MEDS: CEFTAZIDIME PENTAHYDRATE 1 GM in DEXTROSE 5%-WATER - 50 ML IVPB SCH (17:16)
[2021-02-16] MEDS: ATORVASTATIN CA 40 MG TABLET (FP) GT SCH (21:14)
[2021-02-17] MEDS: VANCOMYCIN 250 MG/5 ML ORAL SOLUTION PO SCH ×4 (05:51→23:14)
[2021-02-17 09:05] LABS: BASO % 0.4 % (0-2.0); EOS % 6.9 % (0-4.5); HEMATOCRIT 26.4 % (35.4-49); HEMOGLOBIN 8.6 GM/dL (11.7-16.9); LYMPH % 17.7 % (8-40); MCH 28.4 pg (25.7-33.7); MCHC 32.5 g/dl (32.0-35.9); MEAN CELL VOLUME 87.4 fl (80-96); MEAN PLT VOLUME 6.8 fl (7.5-11.1); MONO % 7.3 % (3.8-10.2); NEUT % 67.7 % (42.8-82.8); PLATELET COUNT 446 K/MM3 (134-434); RBC 3.02 M/mm3 (4.00-5.60); RDW 17.4 % (11.9-15.9); WHITE BLOOD COUNT 10.7 K/mm3 (4.0-10.0)
[2021-02-17 09:27] LABS: ALBUMIN 1.7 g/dl (3.4-5.0); BLOOD UREA NITROGEN 47.2 mg/dL (7-18)
[2021-02-17 09:29] LABS: BILIRUBIN,TOTAL 0.2 mg/dL (0.2-1); TOT PROT 6.9 g/dl (6.4-8.2)
[2021-02-17 09:30] LABS: CREATININE 2.9 mg/dL (0.55-1.3)
[2021-02-17] MEDS ORDERED: PT OWN MED DRAWER 7, Y5N ONE ×3 (12:25→20:35)
[2021-02-17] MEDS ORDERED: DEXTROSE 5%-WATER - 50 ML IVPB ONE (16:20)
[2021-02-17] MEDS ORDERED: cefTAZidime PENTAHYDRATE 1 GM VIAL (RESTRICTED TO ID) ONE (16:20)
[2021-02-17] MEDS: AMINO ACIDS/PROTEIN HYDROLYS 30 ML LIQUID.PKT GT SCH ×2 (16:23→18:59)
[2021-02-17] MEDS: MULTIVIT-MINERALS ORAL LIQUID GT SCH (16:24)
[2021-02-17] MEDS: FERROUS SO4 300 MG/5 ML ORAL SOLN UNIT DOSE CUPS GT SCH ×2 (16:25→21:17)
[2021-02-17] MEDS: CARVEDILOL 3.125 MG TABLET (FP) PO SCH ×2 (16:25→21:17)
[2021-02-17] MEDS: LOPERAMIDE HCL 2 MG CAPSULE GT SCH (16:26)
[2021-02-17] MEDS: levETIRAcetam 500 MG/5 ML ORAL SOLUTION (UNIT-DOSE CUPS) GT SCH (16:27)
[2021-02-17] MEDS: CEFTAZIDIME PENTAHYDRATE 1 GM in DEXTROSE 5%-WATER - 50 ML IVPB SCH (16:28)
[2021-02-17] MEDS: FAMOTIDINE 40 MG/5 ML ORAL SUSPENSION PEG SCH ×2 (16:31→21:17)
[2021-02-17] MEDS: SODIUM HYPOCHLORITE 0.25%- 473 ML BULK BOTTLE TP SCH (16:35)
[2021-02-17] MEDS: COLLAGENASE CLOSTRIDIUM HIST. 30 GRAMS TUBE TP SCH (16:35)
[2021-02-17] MEDS: ATORVASTATIN CA 40 MG TABLET (FP) GT SCH (21:16)
[2021-02-18] MEDS: VANCOMYCIN 250 MG/5 ML ORAL SOLUTION PO SCH ×2 (05:56→11:16)
[2021-02-18] MEDS ORDERED: SODIUM CHLORIDE 250 ML IV PRN (07:54)
[2021-02-18] MEDS ORDERED: EPOETIN ALFA-EPBX 4,000 UNIT/ML VIAL SQ ONE (08:00)
[2021-02-18 08:59] LABS: BASO % 0.6 % (0-2.0); EOS % 7.4 % (0-4.5); HEMATOCRIT 25.3 % (35.4-49); HEMOGLOBIN 8.2 GM/dL (11.7-16.9); LYMPH % 17.6 % (8-40); MCH 28.1 pg (25.7-33.7); MCHC 32.4 g/dl (32.0-35.9); MEAN CELL VOLUME 86.6 fl (80-96); MEAN PLT VOLUME 6.8 fl (7.5-11.1); MONO % 7.2 % (3.8-10.2); NEUT % 67.2 % (42.8-82.8); PLATELET COUNT 427 K/MM3 (134-434); RBC 2.92 M/mm3 (4.00-5.60); RDW 17.2 % (11.9-15.9); WHITE BLOOD COUNT 9.4 K/mm3 (4.0-10.0)
[2021-02-18 09:21] LABS: ALBUMIN 1.6 g/dl (3.4-5.0); BLOOD UREA NITROGEN 60.2 mg/dL (7-18)
[2021-02-18 09:24] LABS: CREATININE 3.4 mg/dL (0.55-1.3)
[2021-02-18 09:26] LABS: BILIRUBIN,TOTAL 0.4 mg/dL (0.2-1); TOT PROT 6.8 g/dl (6.4-8.2)
[2021-02-18] MEDS: AMINO ACIDS/PROTEIN HYDROLYS 30 ML LIQUID.PKT GT SCH ×2 (09:51→18:16)
[2021-02-18] MEDS ORDERED: PT OWN MED DRAWER 7, Y5N ONE ×2 (11:02→22:17)
[2021-02-18] MEDS: levETIRAcetam 500 MG/5 ML ORAL SOLUTION (UNIT-DOSE CUPS) GT SCH (11:17)
[2021-02-18] MEDS: MULTIVIT-MINERALS ORAL LIQUID GT SCH (11:17)
[2021-02-18] MEDS: FERROUS SO4 300 MG/5 ML ORAL SOLN UNIT DOSE CUPS GT SCH ×2 (11:18→22:40)
[2021-02-18] MEDS: CARVEDILOL 3.125 MG TABLET (FP) PO SCH ×2 (11:19→22:40)
[2021-02-18] MEDS: LOPERAMIDE HCL 2 MG CAPSULE GT SCH (11:19)
[2021-02-18] MEDS: FAMOTIDINE 40 MG/5 ML ORAL SUSPENSION PEG SCH ×2 (11:19→22:40)
[2021-02-18] MEDS ORDERED: DEXTROSE 5%-WATER - 50 ML IVPB ONE (15:06)
[2021-02-18] MEDS ORDERED: cefTAZidime PENTAHYDRATE 1 GM VIAL (RESTRICTED TO ID) ONE (15:06)
[2021-02-18] MEDS: SODIUM HYPOCHLORITE 0.25%- 473 ML BULK BOTTLE TP SCH (15:08)
[2021-02-18] MEDS: COLLAGENASE CLOSTRIDIUM HIST. 30 GRAMS TUBE TP SCH (15:09)
[2021-02-18] MEDS: fentaNYL 25mcg/hr PATCH.TD72 TD SCH (15:11)
[2021-02-18] MEDS: CEFTAZIDIME PENTAHYDRATE 1 GM in DEXTROSE 5%-WATER - 50 ML IVPB SCH (15:13)
[2021-02-18] MEDS: FENTANYL PATCH WASTE TD PRN (15:41)
[2021-02-18] MEDS: ATORVASTATIN CA 40 MG TABLET (FP) GT SCH (22:40)
[2021-02-19] MEDS: AMINO ACIDS/PROTEIN HYDROLYS 30 ML LIQUID.PKT GT SCH ×2 (09:50→17:08)
[2021-02-19] MEDS ORDERED: CEFTAZIDIME PENTAHYDRATE 1 GM in DEXTROSE 5%-WATER - 50 ML IVPB ONE (10:34)
[2021-02-19] MEDS ORDERED: DEXTROSE 5%-WATER - 50 ML IVPB ONE (10:43)
[2021-02-19] MEDS ORDERED: cefTAZidime PENTAHYDRATE 1 GM VIAL (RESTRICTED TO ID) ONE (10:43)
[2021-02-19] MEDS: FERROUS SO4 300 MG/5 ML ORAL SOLN UNIT DOSE CUPS GT SCH ×2 (10:47→22:10)
[2021-02-19] MEDS: levETIRAcetam 500 MG/5 ML ORAL SOLUTION (UNIT-DOSE CUPS) GT SCH (10:47)
[2021-02-19] MEDS: LOPERAMIDE HCL 2 MG CAPSULE GT SCH (10:49)
[2021-02-19] MEDS: MULTIVIT-MINERALS ORAL LIQUID GT SCH (10:49)
[2021-02-19] MEDS: FAMOTIDINE 40 MG/5 ML ORAL SUSPENSION PEG SCH ×2 (10:50→22:11)
[2021-02-19] MEDS: CARVEDILOL 3.125 MG TABLET (FP) PO SCH ×2 (10:50→22:10)
[2021-02-19 11:07] LABS: BASO % 0.7 % (0-2.0); EOS % 6.1 % (0-4.5); HEMATOCRIT 27.5 % (35.4-49); HEMOGLOBIN 8.6 GM/dL (11.7-16.9); LYMPH % 18.9 % (8-40); MCH 27.9 pg (25.7-33.7); MCHC 31.4 g/dl (32.0-35.9); MEAN CELL VOLUME 88.8 fl (80-96); MEAN PLT VOLUME 6.7 fl (7.5-11.1); MONO % 9.6 % (3.8-10.2); NEUT % 64.7 % (42.8-82.8); PLATELET COUNT 454 K/MM3 (134-434); RBC 3.09 M/mm3 (4.00-5.60); RDW 17.8 % (11.9-15.9); WHITE BLOOD COUNT 9.2 K/mm3 (4.0-10.0)
[2021-02-19 11:34] LABS: ALBUMIN 1.8 g/dl (3.4-5.0); BLOOD UREA NITROGEN 41.9 mg/dL (7-18); CALCIUM 10.4 mg/dL (8.5-10.1)
[2021-02-19 11:37] LABS: CREATININE 2.7 mg/dL (0.55-1.3)
[2021-02-19 11:39] LABS: BILIRUBIN,TOTAL 0.3 mg/dL (0.2-1); TOT PROT 7.4 g/dl (6.4-8.2)
[2021-02-19] MEDS: COLLAGENASE CLOSTRIDIUM HIST. 30 GRAMS TUBE TP SCH (14:00)
[2021-02-19] MEDS: SODIUM HYPOCHLORITE 0.25%- 473 ML BULK BOTTLE TP SCH (14:00)
[2021-02-19] MEDS ORDERED: PT OWN MED DRAWER 7, Y5N ONE (21:20)
[2021-02-19] MEDS: ATORVASTATIN CA 40 MG TABLET (FP) GT SCH (22:10)
[2021-02-19 22:19] VITALS: BP 107/71; PULSE 107; TEMP 98.3
== END 2021-02-19 21:40 | DRG 720 ==
LOC: JER 05:46 → JERBED 07:15 → J5S 22:26
PROVIDERS: ADMIT Internal Medicine; ATTEND Family Medicine
PROC: 5A1955Z Respiratory Ventilation, Greater than 96 Consecutive Hours (ICD-10-PCS; principal; 2021-02-09)
PROC: 3E0G76Z Introduction of Nutritional Substance into Upper GI, Via Natural or Artificial Opening (ICD-10-PCS; 2021-02-09)
PROC: 5A1D70Z Performance of Urinary Filtration, Intermittent, Less than 6 Hours Per Day (ICD-10-PCS; 2021-02-11)
PROC: 0D20XUZ Change Feeding Device in Upper Intestinal Tract, External Approach (ICD-10-PCS; 2021-02-17)
DX: A41.50 Gram-negative sepsis, unspecified (principal); I12.0 Hypertensive chronic kidney disease with stage 5 chronic kidney disease or end stage renal disease; N18.6 End stage renal disease; J96.10 Chronic respiratory failure, unspecified whether with hypoxia or hypercapnia; L89.154 Pressure ulcer of sacral region, stage 4; Z99.11 Dependence on respirator [ventilator] status; Z93.0 Tracheostomy status; K31.9 Disease of stomach and duodenum, unspecified; N39.0 Urinary tract infection, site not specified; E78.5 Hyperlipidemia, unspecified; G40.909 Epilepsy, unspecified, not intractable, without status epilepticus; E87.6 Hypokalemia; Z66 Do not resuscitate; Z51.5 Encounter for palliative care; E66.9 Obesity, unspecified; B94.8 Sequelae of other specified infectious and parasitic diseases; Z99.2 Dependence on renal dialysis; D63.1 Anemia in chronic kidney disease; Z68.32 Body mass index [BMI] 32.0-32.9, adult; R31.9 Hematuria, unspecified; K94.23 Gastrostomy malfunction; Y83.8 Other surgical procedures as the cause of abnormal reaction of the patient, or of later complication, without mention of misadventure at the time of the procedure
CPT/HCPCS: 36415; 36430; 71045-TC-FY; 74018-TC-FY; 80053; 81003; 82550; 82962; 83605; 83735; 84100; 84484; 85025; 85610; 85730; 86803; 86850; 86900; 86901; 86922; 87040; 87077; 87086; 87186; 87340; 93005; 93010; 94002; 94640; 99285-25; C9803; P9058; Q5106; U0003; U0005

== ENCOUNTER 2021-05-28 21:33 | Inpatient (IN) | payer OTHER ==
[2021-05-28 23:06] LABS: BASO % 0.3 % (0-2.0); EOS % 7.6 % (0-4.5); HEMATOCRIT 20.9 % (35.4-49); LYMPH % 9.3 % (8-40); MCH 26.3 pg (25.7-33.7); MCHC 31.3 g/dl (32.0-35.9); MEAN CELL VOLUME 84.1 fl (80-96); MONO % 9.7 % (3.8-10.2); NEUT % 73.1 % (42.8-82.8); PLATELET COUNT 461 10^3/uL (134-434); RBC 2.49 M/mm3 (4.00-5.60); RDW 16.4 % (11.9-15.9); WHITE BLOOD COUNT 15.2 K/mm3 (4.0-10.0)
[2021-05-28 23:13] LABS: HEMOGLOBIN 6.6 GM/dL (11.7-16.9); INR 0.97 (0.83-1.09); PROTHROMBIN TIME (PATIENT) 11.7 SEC (9.7-13.0)
[2021-05-28 23:16] LABS: ACTIVATED PTT 19.8 SECONDS (25.2-36.5)
[2021-05-28 23:26] LABS: CHLORIDE 97 mmol/L (98-107); SODIUM 132 mmol/L (136-145)
[2021-05-28 23:28] LABS: ANION GAP 7 MMOL/L (8-16); BLOOD UREA NITROGEN 60.9 mg/dL (7-18); CO2 29 mmol/L (21-32)
[2021-05-28 23:29] LABS: GLUCOSE,RANDOM 97 mg/dL (74-106)
[2021-05-28 23:32] LABS: CREATININE 3.3 mg/dL (0.55-1.3); SGOT/AST 62 U/L (15-37); SGPT/ALT 77 U/L (13-61)
[2021-05-28 23:33] LABS: BILIRUBIN,TOTAL 0.3 mg/dL (0.2-1); TOT PROT 8.3 g/dl (6.4-8.2)
[2021-05-28 23:34] LABS: ALK PHOS 163 U/L (45-117)
[2021-05-29] MEDS ORDERED: ALBUTEROL SO4 0.083% IH SOL 2.5 MG/3 ML VIAL.NEB. NEB PRN (04:39)
[2021-05-29] MEDS: LACTOBACILLUS ACIDOPHILUS 1 TABLET PEG SCH ×3 (07:30→22:27)
[2021-05-29 08:09] LABS: BASO % 0.3 % (0-2.0); EOS % 8.1 % (0-4.5); HEMATOCRIT 22.5 % (35.4-49); HEMOGLOBIN 7.1 GM/dL (11.7-16.9); LYMPH % 11.2 % (8-40); MCH 26.3 pg (25.7-33.7); MCHC 31.5 g/dl (32.0-35.9); MEAN CELL VOLUME 83.7 fl (80-96); MEAN PLT VOLUME 6.1 fl (7.5-11.1); MONO % 7.5 % (3.8-10.2); NEUT % 72.9 % (42.8-82.8); PLATELET COUNT 448 10^3/uL (134-434); RBC 2.69 M/mm3 (4.00-5.60); RDW 16.9 % (11.9-15.9); WHITE BLOOD COUNT 15.4 K/mm3 (4.0-10.0)
[2021-05-29 08:24] LABS: BLOOD UREA NITROGEN 67.6 mg/dL (7-18)
[2021-05-29 08:25] LABS: CALCIUM 10.4 mg/dL (8.5-10.1)
[2021-05-29 08:27] LABS: CREATININE 3.6 mg/dL (0.55-1.3)
[2021-05-29 08:29] LABS: BILIRUBIN,TOTAL 0.4 mg/dL (0.2-1); TOT PROT 8.3 g/dl (6.4-8.2)
[2021-05-29] MEDS: fentaNYL 75mcg/hr PATCH.TD72 TD SCH (11:54)
[2021-05-29] MEDS: levETIRAcetam 500 MG/5 ML ORAL SOLUTION (UNIT-DOSE CUPS) PEG SCH ×2 (11:56→19:01)
[2021-05-29] MEDS: ZINC SULFATE 220 MG CAPSULE (FP) GT SCH (11:56)
[2021-05-29] MEDS: oxyCODONE HCL 5 MG TABLET PEG SCH (11:57)
[2021-05-29] MEDS ORDERED: PT OWN MED DRAWER 7, Y5N ONE ×2 (11:59→14:45)
[2021-05-29] MEDS ORDERED: ACETAMINOPHEN 650 MG/20.3 ML ORAL SOLUTION (CUPS) PEG ONE (12:00)
[2021-05-29] MEDS: CARVEDILOL 3.125 MG TABLET (FP) PEG SCH ×2 (12:00→22:27)
[2021-05-29] MEDS: ZINC OXIDE 20% TOPICAL OINTMENT 30 GM TUBE TP SCH (12:01)
[2021-05-29] MEDS ORDERED: SODIUM CHLORIDE 250 ML IV PRN (14:02)
[2021-05-29] MEDS: MIDODRINE HCL 5 MG TABLET PEG SCH (14:48)
[2021-05-29] MEDS: MULTIVIT-MINERALS ORAL LIQUID PEG SCH (14:49)
[2021-05-29] MEDS: FAMOTIDINE 40 MG/5 ML ORAL SUSPENSION PEG SCH ×2 (14:50→22:27)
[2021-05-29] MEDS: LOPERAMIDE HCL 1 MG/7.5 ML LIQUID GT SCH (14:50)
[2021-05-29] MEDS: ATORVASTATIN CA 40 MG TABLET (FP) PEG SCH (22:27)
[2021-05-30] MEDS: ALBUTEROL SO4 HFA INHALER IH SCH ×5 (03:26→23:52)
[2021-05-30] MEDS: LACTOBACILLUS ACIDOPHILUS 1 TABLET PEG SCH ×3 (05:37→21:04)
[2021-05-30 09:59] LABS: HEMATOCRIT 20.7 % (35.4-49); MCH 26.7 pg (25.7-33.7); MCHC 31.8 g/dl (32.0-35.9); MEAN CELL VOLUME 83.8 fl (80-96); MEAN PLT VOLUME 6.7 fl (7.5-11.1); PLATELET COUNT 411 10^3/uL (134-434); RBC 2.48 M/mm3 (4.00-5.60); RDW 16.7 % (11.9-15.9); WHITE BLOOD COUNT 11.2 K/mm3 (4.0-10.0)
[2021-05-30 10:03] LABS: HEMOGLOBIN 6.6 GM/dL (11.7-16.9)
[2021-05-30] MEDS ORDERED: PT OWN MED DRAWER 7, Y5N ONE (10:43)
[2021-05-30] MEDS: AMINO ACIDS/PROTEIN HYDROLYS 30 ML LIQUID.PKT GT SCH (11:14)
[2021-05-30] MEDS: FAMOTIDINE 40 MG/5 ML ORAL SUSPENSION PEG SCH ×2 (11:15→21:04)
[2021-05-30] MEDS: MULTIVIT-MINERALS ORAL LIQUID PEG SCH (11:15)
[2021-05-30] MEDS: ZINC SULFATE 220 MG CAPSULE (FP) GT SCH (11:16)
[2021-05-30] MEDS: CARVEDILOL 3.125 MG TABLET (FP) PEG SCH ×2 (11:17→21:04)
[2021-05-30] MEDS: oxyCODONE HCL 5 MG TABLET PEG SCH (11:17)
[2021-05-30] MEDS: levETIRAcetam 500 MG/5 ML ORAL SOLUTION (UNIT-DOSE CUPS) PEG SCH (11:17)
[2021-05-30] MEDS: LOPERAMIDE HCL 1 MG/7.5 ML LIQUID GT SCH (11:17)
[2021-05-30] MEDS: ZINC OXIDE 20% TOPICAL OINTMENT 30 GM TUBE TP SCH (11:19)
[2021-05-30] MEDS: MIDODRINE HCL 5 MG TABLET PEG SCH (13:35)
[2021-05-30] MEDS: ATORVASTATIN CA 40 MG TABLET (FP) PEG SCH (21:04)
[2021-05-31] MEDS: ALBUTEROL SO4 HFA INHALER IH SCH ×3 (05:09→17:19)
[2021-05-31] MEDS: LACTOBACILLUS ACIDOPHILUS 1 TABLET PEG SCH ×3 (05:09→21:02)
[2021-05-31 08:34] LABS: BASO % 0.4 % (0-2.0); EOS % 8.7 % (0-4.5); HEMATOCRIT 23.8 % (35.4-49); HEMOGLOBIN 7.7 GM/dL (11.7-16.9); LYMPH % 14.4 % (8-40); MCH 27.2 pg (25.7-33.7); MCHC 32.4 g/dl (32.0-35.9); MEAN CELL VOLUME 83.9 fl (80-96); MEAN PLT VOLUME 6.2 fl (7.5-11.1); MONO % 8.8 % (3.8-10.2); NEUT % 67.7 % (42.8-82.8); PLATELET COUNT 417 10^3/uL (134-434); RBC 2.84 M/mm3 (4.00-5.60); RDW 16.2 % (11.9-15.9); WHITE BLOOD COUNT 10.6 K/mm3 (4.0-10.0)
[2021-05-31 08:57] LABS: BLOOD UREA NITROGEN 58.1 mg/dL (7-18); CALCIUM 9.6 mg/dL (8.5-10.1)
[2021-05-31 08:58] LABS: ALBUMIN 1.9 g/dl (3.4-5.0)
[2021-05-31 09:01] LABS: CREATININE 3.4 mg/dL (0.55-1.3)
[2021-05-31 09:02] LABS: BILIRUBIN,TOTAL 0.4 mg/dL (0.2-1); TOT PROT 7.8 g/dl (6.4-8.2)
[2021-05-31] MEDS ORDERED: PT OWN MED DRAWER 7, Y5N ONE (10:25)
[2021-05-31] MEDS: MIDODRINE HCL 5 MG TABLET PEG SCH (10:27)
[2021-05-31] MEDS: ZINC SULFATE 220 MG CAPSULE (FP) GT SCH (10:27)
[2021-05-31] MEDS: oxyCODONE HCL 5 MG TABLET PEG SCH (10:27)
[2021-05-31] MEDS: AMINO ACIDS/PROTEIN HYDROLYS 30 ML LIQUID.PKT GT SCH (10:27)
[2021-05-31] MEDS: CARVEDILOL 3.125 MG TABLET (FP) PEG SCH ×2 (10:28→21:02)
[2021-05-31] MEDS: MULTIVIT-MINERALS ORAL LIQUID PEG SCH (10:28)
[2021-05-31] MEDS: levETIRAcetam 500 MG/5 ML ORAL SOLUTION (UNIT-DOSE CUPS) PEG SCH ×2 (10:28→17:06)
[2021-05-31] MEDS: FAMOTIDINE 40 MG/5 ML ORAL SUSPENSION PEG SCH ×2 (10:29→21:02)
[2021-05-31] MEDS: LOPERAMIDE HCL 1 MG/7.5 ML LIQUID GT SCH (10:29)
[2021-05-31] MEDS: ZINC OXIDE 20% TOPICAL OINTMENT 30 GM TUBE TP SCH (10:29)
[2021-05-31] MEDS: ATORVASTATIN CA 40 MG TABLET (FP) PEG SCH (21:02)
[2021-06-01] MEDS: ALBUTEROL SO4 HFA INHALER IH SCH ×2 (00:28→05:49)
[2021-06-01] MEDS: LACTOBACILLUS ACIDOPHILUS 1 TABLET PEG SCH ×3 (05:46→21:12)
[2021-06-01] MEDS ORDERED: EPOETIN ALFA-EPBX 20,000 UNIT/ML VIAL IVPUSH ONE (08:00)
[2021-06-01] MEDS ORDERED: SODIUM CHLORIDE 250 ML IV PRN (08:00)
[2021-06-01 08:19] LABS: BASO % 0.3 % (0-2.0); HEMATOCRIT 23.2 % (35.4-49); HEMOGLOBIN 7.6 GM/dL (11.7-16.9); LYMPH % 20.7 % (8-40); MCH 27.4 pg (25.7-33.7); MCHC 32.5 g/dl (32.0-35.9); MEAN CELL VOLUME 84.3 fl (80-96); MEAN PLT VOLUME 6.4 fl (7.5-11.1); MONO % 2.3 % (3.8-10.2); NEUT % 73.7 % (42.8-82.8); PLATELET COUNT 369 10^3/uL (134-434); RBC 2.76 M/mm3 (4.00-5.60); RDW 16.3 % (11.9-15.9); WHITE BLOOD COUNT 5.6 K/mm3 (4.0-10.0)
[2021-06-01 08:39] LABS: ALBUMIN 1.9 g/dl (3.4-5.0); BLOOD UREA NITROGEN 65.5 mg/dL (7-18); CALCIUM 9.3 mg/dL (8.5-10.1); MAGNESIUM 2.4 mg/dL (1.8-2.4)
[2021-06-01 08:43] LABS: CREATININE 3.6 mg/dL (0.55-1.3)
[2021-06-01 08:44] LABS: BILIRUBIN,TOTAL 0.5 mg/dL (0.2-1); TOT PROT 7.5 g/dl (6.4-8.2)
[2021-06-01] MEDS ORDERED: PT OWN MED DRAWER 7, Y5N ONE ×2 (11:07→21:14)
[2021-06-01] MEDS: fentaNYL 75mcg/hr PATCH.TD72 TD SCH (11:14)
[2021-06-01] MEDS: ZINC SULFATE 220 MG CAPSULE (FP) GT SCH (11:17)
[2021-06-01] MEDS: AMINO ACIDS/PROTEIN HYDROLYS 30 ML LIQUID.PKT GT SCH (11:17)
[2021-06-01] MEDS: levETIRAcetam 500 MG/5 ML ORAL SOLUTION (UNIT-DOSE CUPS) PEG SCH (11:17)
[2021-06-01] MEDS: MULTIVIT-MINERALS ORAL LIQUID PEG SCH (11:17)
[2021-06-01] MEDS: CARVEDILOL 3.125 MG TABLET (FP) PEG SCH ×2 (11:17→21:12)
[2021-06-01] MEDS: FAMOTIDINE 40 MG/5 ML ORAL SUSPENSION PEG SCH ×2 (11:17→22:20)
[2021-06-01] MEDS: LOPERAMIDE HCL 1 MG/7.5 ML LIQUID GT SCH (11:17)
[2021-06-01] MEDS: MIDODRINE HCL 5 MG TABLET PEG SCH (11:17)
[2021-06-01] MEDS: oxyCODONE HCL 5 MG TABLET PEG SCH (11:18)
[2021-06-01] MEDS: ZINC OXIDE 20% TOPICAL OINTMENT 30 GM TUBE TP SCH (11:18)
[2021-06-01] MEDS: FENTANYL PATCH WASTE TD PRN (11:39)
[2021-06-01 17:11] LABS: FREE KAPPA,SERUM 792.4 mg/L (3.3-19.4)
[2021-06-01] MEDS: ATORVASTATIN CA 40 MG TABLET (FP) PEG SCH (21:12)
[2021-06-02] MEDS: LACTOBACILLUS ACIDOPHILUS 1 TABLET PEG SCH ×3 (05:36→21:40)
[2021-06-02] MEDS: ALBUTEROL SO4 HFA INHALER IH SCH (05:37)
[2021-06-02 09:49] LABS: BASO % 0.8 % (0-2.0); EOS % 8.3 % (0-4.5); HEMATOCRIT 24.7 % (35.4-49); HEMOGLOBIN 7.9 GM/dL (11.7-16.9); LYMPH % 16.8 % (8-40); MCH 26.9 pg (25.7-33.7); MEAN CELL VOLUME 84.1 fl (80-96); MEAN PLT VOLUME 6.4 fl (7.5-11.1); NEUT % 63.1 % (42.8-82.8); PLATELET COUNT 411 10^3/uL (134-434); RBC 2.93 M/mm3 (4.00-5.60); RDW 16.4 % (11.9-15.9); WHITE BLOOD COUNT 11.5 K/mm3 (4.0-10.0)
[2021-06-02 10:07] LABS: CALCIUM 9.9 mg/dL (8.5-10.1)
[2021-06-02 10:08] LABS: MAGNESIUM 2.5 mg/dL (1.8-2.4)
[2021-06-02 10:10] LABS: CREATININE 3.6 mg/dL (0.55-1.3)
[2021-06-02 10:12] LABS: BILIRUBIN,TOTAL 0.4 mg/dL (0.2-1)
[2021-06-02] MEDS ORDERED: PT OWN MED DRAWER 7, Y5N ONE ×3 (11:37→21:36)
[2021-06-02] MEDS: AMINO ACIDS/PROTEIN HYDROLYS 30 ML LIQUID.PKT GT SCH (11:39)
[2021-06-02] MEDS: FAMOTIDINE 40 MG/5 ML ORAL SUSPENSION PEG SCH ×2 (11:40→21:41)
[2021-06-02] MEDS: LOPERAMIDE HCL 1 MG/7.5 ML LIQUID GT SCH (11:40)
[2021-06-02] MEDS: levETIRAcetam 500 MG/5 ML ORAL SOLUTION (UNIT-DOSE CUPS) PEG SCH (11:40)
[2021-06-02] MEDS: CARVEDILOL 3.125 MG TABLET (FP) PEG SCH ×2 (11:41→21:40)
[2021-06-02] MEDS: oxyCODONE HCL 5 MG TABLET PEG SCH (11:41)
[2021-06-02] MEDS: ZINC SULFATE 220 MG CAPSULE (FP) GT SCH (11:41)
[2021-06-02] MEDS: ZINC OXIDE 20% TOPICAL OINTMENT 30 GM TUBE TP SCH (11:42)
[2021-06-02] MEDS: MULTIVIT-MINERALS ORAL LIQUID PEG SCH (11:42)
[2021-06-02] MEDS: ATORVASTATIN CA 40 MG TABLET (FP) PEG SCH (21:40)
[2021-06-03] MEDS: LACTOBACILLUS ACIDOPHILUS 1 TABLET PEG SCH ×3 (05:11→21:39)
[2021-06-03 09:20] LABS: BASO % 0.6 % (0-2.0); EOS % 9.3 % (0-4.5); LYMPH % 16.2 % (8-40); MCH 26.9 pg (25.7-33.7); MCHC 31.8 g/dl (32.0-35.9); MEAN CELL VOLUME 84.7 fl (80-96); MONO % 7.8 % (3.8-10.2); NEUT % 66.1 % (42.8-82.8); PLATELET COUNT 387 10^3/uL (134-434); RBC 2.96 M/mm3 (4.00-5.60); RDW 16.6 % (11.9-15.9); WHITE BLOOD COUNT 11.4 K/mm3 (4.0-10.0)
[2021-06-03 09:46] LABS: CALCIUM 9.9 mg/dL (8.5-10.1); CREATININE 4.5 mg/dL (0.55-1.3)
[2021-06-03 09:47] LABS: ALBUMIN 1.9 g/dl (3.4-5.0); BILIRUBIN,TOTAL 0.3 mg/dL (0.2-1); BLOOD UREA NITROGEN 76.9 mg/dL (7-18); MAGNESIUM 2.7 mg/dL (1.8-2.4); TOT PROT 7.7 g/dl (6.4-8.2)
[2021-06-03] MEDS ORDERED: PT OWN MED DRAWER 7, Y5N ONE ×2 (10:23→17:48)
[2021-06-03] MEDS: AMINO ACIDS/PROTEIN HYDROLYS 30 ML LIQUID.PKT GT SCH ×2 (10:27→17:49)
[2021-06-03] MEDS: MULTIVIT-MINERALS ORAL LIQUID PEG SCH (10:27)
[2021-06-03] MEDS: MIDODRINE HCL 5 MG TABLET PEG SCH (10:27)
[2021-06-03] MEDS: ZINC SULFATE 220 MG CAPSULE (FP) GT SCH (10:28)
[2021-06-03] MEDS: CARVEDILOL 3.125 MG TABLET (FP) PEG SCH ×2 (10:28→21:39)
[2021-06-03] MEDS: LOPERAMIDE HCL 1 MG/7.5 ML LIQUID GT SCH (10:29)
[2021-06-03] MEDS: FAMOTIDINE 40 MG/5 ML ORAL SUSPENSION PEG SCH ×2 (10:29→21:39)
[2021-06-03] MEDS: levETIRAcetam 500 MG/5 ML ORAL SOLUTION (UNIT-DOSE CUPS) PEG SCH ×2 (10:29→17:49)
[2021-06-03] MEDS: oxyCODONE HCL 5 MG TABLET PEG SCH (10:30)
[2021-06-03] MEDS: ZINC OXIDE 20% TOPICAL OINTMENT 30 GM TUBE TP SCH (10:31)
[2021-06-03 16:50] VITALS: BMI 35.9
[2021-06-03] MEDS: ATORVASTATIN CA 40 MG TABLET (FP) PEG SCH (21:39)
[2021-06-04] MEDS: ALBUTEROL SO4 HFA INHALER IH SCH ×4 (05:19→17:22)
[2021-06-04] MEDS: LACTOBACILLUS ACIDOPHILUS 1 TABLET PEG SCH ×2 (05:20→14:01)
[2021-06-04] MEDS ORDERED: EPOETIN ALFA-EPBX 20,000 UNIT/ML VIAL IVPUSH ONE (07:30)
[2021-06-04] MEDS ORDERED: PT OWN MED DRAWER 7, Y5N ONE (11:34)
[2021-06-04] MEDS: oxyCODONE HCL 5 MG TABLET PEG SCH (11:51)
[2021-06-04] MEDS: MULTIVIT-MINERALS ORAL LIQUID PEG SCH (11:53)
[2021-06-04] MEDS: CARVEDILOL 3.125 MG TABLET (FP) PEG SCH (11:53)
[2021-06-04] MEDS: FAMOTIDINE 40 MG/5 ML ORAL SUSPENSION PEG SCH (11:53)
[2021-06-04] MEDS: LOPERAMIDE HCL 1 MG/7.5 ML LIQUID GT SCH (11:54)
[2021-06-04] MEDS: levETIRAcetam 500 MG/5 ML ORAL SOLUTION (UNIT-DOSE CUPS) PEG SCH (11:54)
[2021-06-04] MEDS: AMINO ACIDS/PROTEIN HYDROLYS 30 ML LIQUID.PKT GT SCH ×2 (11:54→17:22)
[2021-06-04] MEDS: ZINC SULFATE 220 MG CAPSULE (FP) GT SCH (11:54)
[2021-06-04] MEDS: MIDODRINE HCL 5 MG TABLET PEG SCH (11:57)
[2021-06-04] MEDS: fentaNYL 75mcg/hr PATCH.TD72 TD SCH (11:58)
[2021-06-04] MEDS: ZINC OXIDE 20% TOPICAL OINTMENT 30 GM TUBE TP SCH (12:10)
[2021-06-04] MEDS: FENTANYL PATCH WASTE TD PRN (12:22)
[2021-06-04 18:27] VITALS: PULSE 88
[2021-06-04 19:14] VITALS: BP 122/81; TEMP 98.3
== END 2021-06-04 18:47 | DRG 663 ==
LOC: JER 21:33 → JERBED 05-29 01:54 → J5S 05-29 08:09
PROVIDERS: ADMIT Internal Medicine; ATTEND Family Medicine
PROC: 5A1955Z Respiratory Ventilation, Greater than 96 Consecutive Hours (ICD-10-PCS; principal; 2021-05-29)
PROC: 30233N1 Transfusion of Nonautologous Red Blood Cells into Peripheral Vein, Percutaneous Approach (ICD-10-PCS; 2021-05-30)
PROC: 5A1D70Z Performance of Urinary Filtration, Intermittent, Less than 6 Hours Per Day (ICD-10-PCS; 2021-06-04)
DX: D64.9 Anemia, unspecified (principal); J96.10 Chronic respiratory failure, unspecified whether with hypoxia or hypercapnia; L89.154 Pressure ulcer of sacral region, stage 4; Z99.11 Dependence on respirator [ventilator] status; Z93.0 Tracheostomy status; I12.0 Hypertensive chronic kidney disease with stage 5 chronic kidney disease or end stage renal disease; N18.6 End stage renal disease; Z93.1 Gastrostomy status; D72.829 Elevated white blood cell count, unspecified; G40.909 Epilepsy, unspecified, not intractable, without status epilepticus; R00.0 Tachycardia, unspecified; Z99.2 Dependence on renal dialysis; D63.8 Anemia in other chronic diseases classified elsewhere; E78.5 Hyperlipidemia, unspecified; E83.52 Hypercalcemia; E66.9 Obesity, unspecified; Z68.36 Body mass index [BMI] 36.0-36.9, adult
CPT/HCPCS: 36415; 36430; 71045-TC-FY; 80048; 80053; 82272; 82550; 82728; 82784; 83540; 83550; 83735; 83883; 83970; 84155; 84165; 84484; 85025; 85027; 85045; 85610; 85730; 86334; 86803; 86850; 86900; 86901; 86922; 87324; 87340; 87449; 93005; 93010; 94002; 99285-25; C9803; E0186; P9058; U0003; U0005

== ENCOUNTER 2021-07-11 21:35 | Inpatient (IN) | payer OTHER ==
[2021-07-11 22:43] LABS: BASO % 0.7 % (0-2.0); EOS % 14.8 % (0-4.5); HEMATOCRIT 20.7 % (35.4-49); LYMPH % 15.2 % (8-40); MCH 27.1 pg (25.7-33.7); MCHC 31.6 g/dl (32.0-35.9); MEAN CELL VOLUME 85.7 fl (80-96); MEAN PLT VOLUME 6.1 fl (7.5-11.1); MONO % 12.3 % (3.8-10.2); PLATELET COUNT 405 10^3/uL (134-434); RBC 2.41 M/mm3 (4.00-5.60); RDW 16.2 % (11.9-15.9); WHITE BLOOD COUNT 9.7 K/mm3 (4.0-10.0)
[2021-07-11 22:46] LABS: HEMOGLOBIN 6.5 GM/dL (11.7-16.9)
[2021-07-11 23:01] LABS: CHLORIDE 98 mmol/L (98-107); SODIUM 134 mmol/L (136-145)
[2021-07-11 23:03] LABS: ALBUMIN 1.9 g/dl (3.4-5.0); CALCIUM 10.1 mg/dL (8.5-10.1)
[2021-07-11 23:04] LABS: ANION GAP 9 MMOL/L (8-16); BLOOD UREA NITROGEN 59.1 mg/dL (7-18); CO2 28 mmol/L (21-32); GLUCOSE,RANDOM 97 mg/dL (74-106)
[2021-07-11 23:07] LABS: CREATININE 3.7 mg/dL (0.55-1.3); SGOT/AST 20 U/L (15-37); SGPT/ALT 28 U/L (13-61)
[2021-07-11 23:09] LABS: BILIRUBIN,TOTAL 0.2 mg/dL (0.2-1); TOT PROT 8.4 g/dl (6.4-8.2)
[2021-07-11 23:10] LABS: ALK PHOS 131 U/L (45-117)
[2021-07-12] MEDS ORDERED: ALBUTEROL SO4 2.5/IPRATROPIUM 0.5 INH SOL 3 ML VIAL.NEB. NEB SCH (04:15)
[2021-07-12] MEDS ORDERED: levETIRAcetam 500 MG/5 ML ORAL SOLUTION (UNIT-DOSE CUPS) GT SCH (04:15)
[2021-07-12] MEDS ORDERED: ACETAMINOPHEN 325 MG TABLET (FP) PO PRN (04:27)
[2021-07-12] MEDS ORDERED: IBUPROFEN 400 MG TABLET (FP) PO PRN (04:29)
[2021-07-12] MEDS: levETIRAcetam 500 MG/5 ML ORAL SOLUTION (UNIT-DOSE CUPS) GT SCH ×2 (07:16→13:31)
[2021-07-12] MEDS: NYSTATIN 500,000 UNITS/5 ML SUSPENSION PO SCH ×3 (07:16→19:13)
[2021-07-12] MEDS ORDERED: ALBUTEROL SO4 2.5/IPRATROPIUM 0.5 INH SOL 3 ML VIAL.NEB. NEB ONE (07:45)
[2021-07-12] MEDS ORDERED: oxyCODONE HCL 5 MG TABLET ONE (08:57)
[2021-07-12] MEDS ORDERED: CARVEDILOL 3.125 MG TABLET (FP) ONE (08:57)
[2021-07-12] MEDS ORDERED: FAMOTIDINE 20 MG TABLET ONE (08:58)
[2021-07-12] MEDS ORDERED: ZINC SULFATE 220 MG CAPSULE (FP) ONE (08:58)
[2021-07-12] MEDS ORDERED: PT OWN MED DRAWER 7, Y5N ONE (08:59)
[2021-07-12 09:00] LABS: INR 1.15 (0.83-1.09); PROTHROMBIN TIME (PATIENT) 13.5 SEC (9.7-13.0)
[2021-07-12] MEDS: FAMOTIDINE 20 MG TABLET PEG SCH (09:12)
[2021-07-12] MEDS: oxyCODONE HCL 5 MG TABLET GT SCH (09:12)
[2021-07-12] MEDS ORDERED: LOPERAMIDE HCL 1 MG/5 ML UNIT DOSE CUP GT SCH (10:00)
[2021-07-12] MEDS ORDERED: ZINC SULFATE 220 MG TABLET GT SCH (10:00)
[2021-07-12] MEDS ORDERED: SODIUM CHLORIDE 250 ML IV PRN (11:01)
[2021-07-12] MEDS: ALBUTEROL SO4 2.5/IPRATROPIUM 0.5 INH SOL 3 ML VIAL.NEB. NEB SCH ×3 (12:59→20:10)
[2021-07-12] MEDS: fentaNYL 75mcg/hr PATCH.TD72 TD SCH (13:30)
[2021-07-12] MEDS: MIDODRINE HCL 5 MG TABLET GT SCH ×2 (13:30→13:32)
[2021-07-12] MEDS: LACTOBACILLUS ACIDOPHILUS 1 TABLET PO SCH ×2 (13:31→22:35)
[2021-07-12] MEDS: MULTIVIT-MINERALS ORAL LIQUID GT SCH (13:31)
[2021-07-12] MEDS: CARVEDILOL 3.125 MG TABLET (FP) PO SCH ×2 (13:32→22:36)
[2021-07-12 17:56] VITALS: BMI 39.3
[2021-07-12] MEDS: ATORVASTATIN CA 40 MG TABLET (FP) GT SCH (22:35)
[2021-07-13] MEDS: NYSTATIN 500,000 UNITS/5 ML SUSPENSION PO SCH ×4 (00:50→17:24)
[2021-07-13] MEDS: LACTOBACILLUS ACIDOPHILUS 1 TABLET PO SCH ×3 (05:06→22:14)
[2021-07-13] MEDS: levETIRAcetam 500 MG/5 ML ORAL SOLUTION (UNIT-DOSE CUPS) GT SCH (05:06)
[2021-07-13] MEDS: ALBUTEROL SO4 2.5/IPRATROPIUM 0.5 INH SOL 3 ML VIAL.NEB. NEB SCH ×4 (08:04→20:03)
[2021-07-13 09:42] LABS: EOS % 14.5 % (0-4.5); HEMOGLOBIN 7.5 GM/dL (11.7-16.9); LYMPH % 21.3 % (8-40); MCH 27.4 pg (25.7-33.7); MCHC 32.4 g/dl (32.0-35.9); MEAN CELL VOLUME 84.6 fl (80-96); MEAN PLT VOLUME 6.4 fl (7.5-11.1); MONO % 11.4 % (3.8-10.2); NEUT % 51.8 % (42.8-82.8); PLATELET COUNT 450 10^3/uL (134-434); RBC 2.72 M/mm3 (4.00-5.60); RDW 15.6 % (11.9-15.9)
[2021-07-13] MEDS ORDERED: PT OWN MED DRAWER 7, Y5N ONE ×2 (09:43→13:52)
[2021-07-13] MEDS: PANTOPRAZOLE SODIUM 40 MG VIAL IVPUSH SCH (10:11)
[2021-07-13] MEDS: LOPERAMIDE HCL 1 MG/7.5 ML LIQUID GT SCH (10:11)
[2021-07-13] MEDS: ZINC SULFATE 220 MG CAPSULE (FP) GT SCH (10:14)
[2021-07-13] MEDS: FAMOTIDINE 20 MG TABLET PEG SCH (10:14)
[2021-07-13] MEDS: MULTIVIT-MINERALS ORAL LIQUID GT SCH (10:14)
[2021-07-13] MEDS: MIDODRINE HCL 5 MG TABLET GT SCH ×2 (10:16)
[2021-07-13] MEDS: CARVEDILOL 3.125 MG TABLET (FP) PO SCH ×2 (10:18→22:14)
[2021-07-13] MEDS ORDERED: SODIUM CHLORIDE 250 ML IV PRN (10:44)
[2021-07-13 11:12] LABS: CALCIUM 9.9 mg/dL (8.5-10.1)
[2021-07-13 11:13] LABS: BLOOD UREA NITROGEN 51.1 mg/dL (7-18)
[2021-07-13 11:16] LABS: CREATININE 3.8 mg/dL (0.55-1.3)
[2021-07-13] MEDS ORDERED: EPOETIN ALFA-EPBX 20,000 UNIT/ML VIAL SQ ONE (12:00)
[2021-07-13] MEDS: oxyCODONE HCL 5 MG TABLET GT SCH (13:58)
[2021-07-13] MEDS: ATORVASTATIN CA 40 MG TABLET (FP) GT SCH (22:14)
[2021-07-14] MEDS: NYSTATIN 500,000 UNITS/5 ML SUSPENSION PO SCH ×5 (00:14→23:43)
[2021-07-14] MEDS: levETIRAcetam 500 MG/5 ML ORAL SOLUTION (UNIT-DOSE CUPS) GT SCH (06:53)
[2021-07-14] MEDS: LACTOBACILLUS ACIDOPHILUS 1 TABLET PO SCH ×3 (06:53→22:14)
[2021-07-14] MEDS: ALBUTEROL SO4 2.5/IPRATROPIUM 0.5 INH SOL 3 ML VIAL.NEB. NEB SCH ×4 (07:54→19:56)
[2021-07-14] MEDS ORDERED: PT OWN MED DRAWER 7, Y5N ONE (10:05)
[2021-07-14] MEDS: MULTIVIT-MINERALS ORAL LIQUID GT SCH (10:08)
[2021-07-14] MEDS: PANTOPRAZOLE SODIUM 40 MG VIAL IVPUSH SCH (10:08)
[2021-07-14] MEDS: LOPERAMIDE HCL 1 MG/7.5 ML LIQUID GT SCH (10:08)
[2021-07-14] MEDS: MIDODRINE HCL 5 MG TABLET GT SCH ×2 (10:09→10:10)
[2021-07-14] MEDS: FAMOTIDINE 20 MG TABLET PEG SCH (10:09)
[2021-07-14] MEDS: ZINC SULFATE 220 MG CAPSULE (FP) GT SCH (10:09)
[2021-07-14] MEDS: oxyCODONE HCL 5 MG TABLET GT SCH (10:09)
[2021-07-14] MEDS: CARVEDILOL 3.125 MG TABLET (FP) PO SCH ×2 (10:10→22:14)
[2021-07-14 12:53] LABS: HEMATOCRIT 21.2 % (35.4-49); MCH 27.8 pg (25.7-33.7); MCHC 32.6 g/dl (32.0-35.9); MEAN CELL VOLUME 85.2 fl (80-96); MEAN PLT VOLUME 6.3 fl (7.5-11.1); PLATELET COUNT 448 10^3/uL (134-434); RBC 2.49 M/mm3 (4.00-5.60); WHITE BLOOD COUNT 9.1 K/mm3 (4.0-10.0)
[2021-07-14 13:18] LABS: HEMOGLOBIN 6.9 GM/dL (11.7-16.9)
[2021-07-14] MEDS: ATORVASTATIN CA 40 MG TABLET (FP) GT SCH (22:14)
[2021-07-15] MEDS: LACTOBACILLUS ACIDOPHILUS 1 TABLET PO SCH ×3 (06:08→22:07)
[2021-07-15] MEDS: levETIRAcetam 500 MG/5 ML ORAL SOLUTION (UNIT-DOSE CUPS) GT SCH ×2 (06:08→10:54)
[2021-07-15] MEDS: NYSTATIN 500,000 UNITS/5 ML SUSPENSION PO SCH ×4 (06:08→17:33)
[2021-07-15] MEDS: ALBUTEROL SO4 2.5/IPRATROPIUM 0.5 INH SOL 3 ML VIAL.NEB. NEB SCH ×4 (08:28→19:38)
[2021-07-15] MEDS: PANTOPRAZOLE SODIUM 40 MG VIAL IVPUSH SCH (10:51)
[2021-07-15] MEDS: LOPERAMIDE HCL 1 MG/7.5 ML LIQUID GT SCH (10:51)
[2021-07-15] MEDS: oxyCODONE HCL 5 MG TABLET GT SCH (10:52)
[2021-07-15] MEDS: CARVEDILOL 3.125 MG TABLET (FP) PO SCH ×2 (10:52→22:07)
[2021-07-15] MEDS: MULTIVIT-MINERALS ORAL LIQUID GT SCH (10:52)
[2021-07-15] MEDS: FAMOTIDINE 20 MG TABLET PEG SCH (10:52)
[2021-07-15] MEDS: MIDODRINE HCL 5 MG TABLET GT SCH ×2 (10:52→10:55)
[2021-07-15] MEDS: fentaNYL 75mcg/hr PATCH.TD72 TD SCH (10:53)
[2021-07-15] MEDS: ZINC SULFATE 220 MG CAPSULE (FP) GT SCH (10:54)
[2021-07-15 12:26] LABS: HEMATOCRIT 24.1 % (35.4-49); HEMOGLOBIN 7.8 GM/dL (11.7-16.9); MCH 27.5 pg (25.7-33.7); MCHC 32.3 g/dl (32.0-35.9); MEAN PLT VOLUME 6.4 fl (7.5-11.1); PLATELET COUNT 447 10^3/uL (134-434); RBC 2.83 M/mm3 (4.00-5.60); RDW 15.5 % (11.9-15.9); WHITE BLOOD COUNT 8.1 K/mm3 (4.0-10.0)
[2021-07-15] MEDS: AMINO ACIDS/PROTEIN HYDROLYS 30 ML LIQUID.PKT GT SCH (17:33)
[2021-07-15] MEDS: ATORVASTATIN CA 40 MG TABLET (FP) GT SCH (22:07)
[2021-07-16] MEDS: LACTOBACILLUS ACIDOPHILUS 1 TABLET PO SCH ×3 (06:02→22:23)
[2021-07-16] MEDS: levETIRAcetam 500 MG/5 ML ORAL SOLUTION (UNIT-DOSE CUPS) GT SCH (06:02)
[2021-07-16] MEDS: NYSTATIN 500,000 UNITS/5 ML SUSPENSION PO SCH ×4 (06:02→23:21)
[2021-07-16] MEDS: ALBUTEROL SO4 2.5/IPRATROPIUM 0.5 INH SOL 3 ML VIAL.NEB. NEB SCH ×4 (08:08→20:00)
[2021-07-16] MEDS ORDERED: SODIUM CHLORIDE 250 ML IV PRN (09:00)
[2021-07-16] MEDS ORDERED: ALTEPLASE (CATHFLO) 2 MG/2 ML VIAL CVP ONE ×2 (09:00)
[2021-07-16 09:29] LABS: BASO % 0.3 % (0-2.0); EOS % 8.4 % (0-4.5); HEMATOCRIT 22.9 % (35.4-49); HEMOGLOBIN 7.2 GM/dL (11.7-16.9); LYMPH % 8.9 % (8-40); MCH 26.6 pg (25.7-33.7); MCHC 31.6 g/dl (32.0-35.9); MEAN CELL VOLUME 84.3 fl (80-96); MEAN PLT VOLUME 6.2 fl (7.5-11.1); MONO % 7.1 % (3.8-10.2); NEUT % 75.3 % (42.8-82.8); PLATELET COUNT 435 10^3/uL (134-434); RBC 2.71 M/mm3 (4.00-5.60); RDW 16.3 % (11.9-15.9); WHITE BLOOD COUNT 13.6 K/mm3 (4.0-10.0)
[2021-07-16] MEDS: EPOETIN ALFA-EPBX 10,000 UNIT/ML VIAL SQ ONE (09:51)
[2021-07-16 10:06] LABS: BLOOD UREA NITROGEN 61.2 mg/dL (7-18); CALCIUM 10.1 mg/dL (8.5-10.1)
[2021-07-16 10:10] LABS: CREATININE 5.2 mg/dL (0.55-1.3)
[2021-07-16] MEDS ORDERED: PT OWN MED DRAWER 7, Y5N ONE ×2 (12:06→22:31)
[2021-07-16] MEDS: MIDODRINE HCL 5 MG TABLET GT SCH ×2 (12:10→12:11)
[2021-07-16] MEDS: PANTOPRAZOLE SODIUM 40 MG VIAL IVPUSH SCH (12:10)
[2021-07-16] MEDS: oxyCODONE HCL 5 MG TABLET GT SCH (12:11)
[2021-07-16] MEDS: MULTIVIT-MINERALS ORAL LIQUID GT SCH (12:11)
[2021-07-16] MEDS: AMINO ACIDS/PROTEIN HYDROLYS 30 ML LIQUID.PKT GT SCH ×2 (12:11→17:22)
[2021-07-16] MEDS: FAMOTIDINE 20 MG TABLET PEG SCH (12:11)
[2021-07-16] MEDS: ZINC SULFATE 220 MG CAPSULE (FP) GT SCH (12:11)
[2021-07-16] MEDS: CARVEDILOL 3.125 MG TABLET (FP) PO SCH ×2 (12:13→22:23)
[2021-07-16] MEDS: LOPERAMIDE HCL 1 MG/7.5 ML LIQUID GT SCH (13:25)
[2021-07-16] MEDS: ACETAMINOPHEN 325 MG TABLET (FP) PO PRN (18:16)
[2021-07-16] MEDS: ATORVASTATIN CA 40 MG TABLET (FP) GT SCH (22:23)
[2021-07-17] MEDS: ACETAMINOPHEN 325 MG TABLET (FP) PO PRN ×2 (00:18→10:33)
[2021-07-17] MEDS ORDERED: ACETAMINOPHEN 650 MG/20.3 ML ORAL SOLUTION (CUPS) GT ONE (03:30)
[2021-07-17] MEDS: LACTOBACILLUS ACIDOPHILUS 1 TABLET PO SCH ×3 (06:13→21:44)
[2021-07-17] MEDS: NYSTATIN 500,000 UNITS/5 ML SUSPENSION PO SCH ×3 (06:13→18:08)
[2021-07-17] MEDS: levETIRAcetam 500 MG/5 ML ORAL SOLUTION (UNIT-DOSE CUPS) GT SCH ×2 (06:13→10:20)
[2021-07-17] MEDS: ALBUTEROL SO4 2.5/IPRATROPIUM 0.5 INH SOL 3 ML VIAL.NEB. NEB SCH (08:12)
[2021-07-17] MEDS ORDERED: PT OWN MED DRAWER 7, Y5N ONE (09:55)
[2021-07-17] MEDS: ZINC SULFATE 220 MG CAPSULE (FP) GT SCH (10:19)
[2021-07-17] MEDS: AMINO ACIDS/PROTEIN HYDROLYS 30 ML LIQUID.PKT GT SCH ×2 (10:19→18:08)
[2021-07-17] MEDS: MULTIVIT-MINERALS ORAL LIQUID GT SCH (10:19)
[2021-07-17] MEDS: FAMOTIDINE 20 MG TABLET PEG SCH (10:20)
[2021-07-17] MEDS: oxyCODONE HCL 5 MG TABLET GT SCH (10:20)
[2021-07-17] MEDS: MIDODRINE HCL 5 MG TABLET GT SCH ×2 (10:20→10:24)
[2021-07-17] MEDS: PANTOPRAZOLE SODIUM 40 MG VIAL IVPUSH SCH (10:22)
[2021-07-17] MEDS: CARVEDILOL 3.125 MG TABLET (FP) PO SCH ×2 (10:23→21:45)
[2021-07-17] MEDS: COLLAGENASE CLOSTRIDIUM HIST. 30 GRAMS TUBE TP SCH (12:19)
[2021-07-17 12:28] LABS: BASO % 0.2 % (0-2.0); EOS % 5.8 % (0-4.5); HEMATOCRIT 25.4 % (35.4-49); HEMOGLOBIN 8.1 GM/dL (11.7-16.9); LYMPH % 5.2 % (8-40); MCHC 31.9 g/dl (32.0-35.9); MEAN CELL VOLUME 84.5 fl (80-96); MEAN PLT VOLUME 6.2 fl (7.5-11.1); MONO % 6.2 % (3.8-10.2); NEUT % 82.6 % (42.8-82.8); PLATELET COUNT 430 10^3/uL (134-434); RBC 3.01 M/mm3 (4.00-5.60); WHITE BLOOD COUNT 18.4 K/mm3 (4.0-10.0)
[2021-07-17 12:54] LABS: CALCIUM 10.3 mg/dL (8.5-10.1)
[2021-07-17 12:58] LABS: CREATININE 5.9 mg/dL (0.55-1.3)
[2021-07-17] MEDS: EPOETIN ALFA-EPBX 10,000 UNIT/ML VIAL SQ ONE (13:15)
[2021-07-17] MEDS ORDERED: VANCOMYCIN PREMIX 1.5 GM 1,500 MG/300 ML BAG IVPB ONE (17:00)
[2021-07-17] MEDS ORDERED: DEXTROSE 5%-WATER 100 ML IVPB ONE (17:30)
[2021-07-17] MEDS ORDERED: CEFEPIME HCL 1 GM VIAL (RESTRICTED TO ID) ONE (17:30)
[2021-07-17] MEDS: CEFEPIME 1 GM in DEXTROSE 5%-WATER 1 GM/100 ML BAG IVPB SCH (18:08)
[2021-07-17] MEDS ORDERED: FLU VACC QS2021-22(6MOS UP)/PF 60 MCG/0.5 ML SYRINGE IM ONE (21:00)
[2021-07-17] MEDS: ATORVASTATIN CA 40 MG TABLET (FP) GT SCH (21:44)
[2021-07-18] MEDS: NYSTATIN 500,000 UNITS/5 ML SUSPENSION PO SCH ×5 (00:29→23:31)
[2021-07-18] MEDS: levETIRAcetam 500 MG/5 ML ORAL SOLUTION (UNIT-DOSE CUPS) GT SCH (06:03)
[2021-07-18] MEDS: LACTOBACILLUS ACIDOPHILUS 1 TABLET PO SCH ×3 (06:03→22:28)
[2021-07-18 10:33] LABS: BASO % 0.3 % (0-2.0); EOS % 9.7 % (0-4.5); HEMATOCRIT 23.4 % (35.4-49); HEMOGLOBIN 7.4 GM/dL (11.7-16.9); LYMPH % 10.7 % (8-40); MCH 26.8 pg (25.7-33.7); MCHC 31.9 g/dl (32.0-35.9); MEAN CELL VOLUME 84.1 fl (80-96); MEAN PLT VOLUME 6.2 fl (7.5-11.1); MONO % 7.5 % (3.8-10.2); NEUT % 71.8 % (42.8-82.8); PLATELET COUNT 402 10^3/uL (134-434); RBC 2.78 M/mm3 (4.00-5.60); RDW 16.1 % (11.9-15.9); WHITE BLOOD COUNT 14.4 K/mm3 (4.0-10.0)
[2021-07-18 10:40] LABS: INR 1.2 (0.83-1.09); PROTHROMBIN TIME (PATIENT) 14.1 SEC (9.7-13.0)
[2021-07-18] MEDS: AMINO ACIDS/PROTEIN HYDROLYS 30 ML LIQUID.PKT GT SCH ×2 (10:41→17:30)
[2021-07-18] MEDS ORDERED: SODIUM CHLORIDE 250 ML IV PRN (10:42)
[2021-07-18] MEDS: oxyCODONE HCL 5 MG TABLET GT SCH (10:42)
[2021-07-18] MEDS: CARVEDILOL 3.125 MG TABLET (FP) PO SCH ×2 (10:43→22:27)
[2021-07-18] MEDS: ZINC SULFATE 220 MG CAPSULE (FP) GT SCH (10:43)
[2021-07-18] MEDS: MULTIVIT-MINERALS ORAL LIQUID GT SCH (10:43)
[2021-07-18] MEDS: MIDODRINE HCL 5 MG TABLET GT SCH ×2 (10:43→10:49)
[2021-07-18] MEDS: FAMOTIDINE 20 MG TABLET PEG SCH (10:44)
[2021-07-18] MEDS ORDERED: ALTEPLASE (CATHFLO) 2 MG/2 ML VIAL NR ONE ×2 (10:45)
[2021-07-18] MEDS: fentaNYL 75mcg/hr PATCH.TD72 TD SCH (10:45)
[2021-07-18] MEDS ORDERED: EPOETIN ALFA-EPBX 10,000 UNIT/ML VIAL SQ ONE (10:45)
[2021-07-18] MEDS: PANTOPRAZOLE SODIUM 40 MG VIAL IVPUSH SCH (10:50)
[2021-07-18] MEDS: FENTANYL PATCH WASTE TD PRN (10:55)
[2021-07-18 10:57] LABS: CALCIUM 9.9 mg/dL (8.5-10.1)
[2021-07-18 10:58] LABS: BLOOD UREA NITROGEN 87.5 mg/dL (7-18)
[2021-07-18 11:01] LABS: CREATININE 6.6 mg/dL (0.55-1.3)
[2021-07-18] MEDS ORDERED: DEXTROSE 5%-WATER 100 ML IVPB ONE ×2 (19:00→19:01)
[2021-07-18] MEDS ORDERED: CEFEPIME HCL 1 GM VIAL (RESTRICTED TO ID) ONE ×2 (19:00→19:01)
[2021-07-18] MEDS: CEFEPIME 1 GM in DEXTROSE 5%-WATER 1 GM/100 ML BAG IVPB SCH (19:04)
[2021-07-18] MEDS: COLLAGENASE CLOSTRIDIUM HIST. 30 GRAMS TUBE TP SCH (20:32)
[2021-07-18] MEDS: ATORVASTATIN CA 40 MG TABLET (FP) GT SCH (22:28)
[2021-07-19] MEDS: LACTOBACILLUS ACIDOPHILUS 1 TABLET PO SCH ×3 (06:47→21:56)
[2021-07-19] MEDS: NYSTATIN 500,000 UNITS/5 ML SUSPENSION PO SCH ×4 (06:47→23:50)
[2021-07-19] MEDS: levETIRAcetam 500 MG/5 ML ORAL SOLUTION (UNIT-DOSE CUPS) GT SCH ×2 (06:47→10:23)
[2021-07-19] MEDS: AMINO ACIDS/PROTEIN HYDROLYS 30 ML LIQUID.PKT GT SCH ×2 (08:07→16:34)
[2021-07-19 09:10] LABS: BASO % 0.5 % (0-2.0); EOS % 13.2 % (0-4.5); HEMATOCRIT 23.5 % (35.4-49); HEMOGLOBIN 7.6 GM/dL (11.7-16.9); LYMPH % 14.2 % (8-40); MCH 27.2 pg (25.7-33.7); MCHC 32.4 g/dl (32.0-35.9); MEAN CELL VOLUME 84.1 fl (80-96); MEAN PLT VOLUME 6.4 fl (7.5-11.1); MONO % 9.5 % (3.8-10.2); NEUT % 62.6 % (42.8-82.8); PLATELET COUNT 399 10^3/uL (134-434); WHITE BLOOD COUNT 10.2 K/mm3 (4.0-10.0)
[2021-07-19 09:43] LABS: CALCIUM 9.9 mg/dL (8.5-10.1)
[2021-07-19 09:47] LABS: CREATININE 4.8 mg/dL (0.55-1.3)
[2021-07-19 09:49] LABS: BLOOD UREA NITROGEN 60.2 mg/dL (7-18)
[2021-07-19] MEDS ORDERED: PT OWN MED DRAWER 7, Y5N ONE (10:12)
[2021-07-19] MEDS: PANTOPRAZOLE SODIUM 40 MG VIAL IVPUSH SCH (10:21)
[2021-07-19] MEDS: MULTIVIT-MINERALS ORAL LIQUID GT SCH (10:22)
[2021-07-19] MEDS: CARVEDILOL 3.125 MG TABLET (FP) PO SCH ×2 (10:22→21:56)
[2021-07-19] MEDS: MIDODRINE HCL 5 MG TABLET GT SCH ×2 (10:23)
[2021-07-19] MEDS: ZINC SULFATE 220 MG CAPSULE (FP) GT SCH (10:23)
[2021-07-19] MEDS: FAMOTIDINE 20 MG TABLET PEG SCH (10:23)
[2021-07-19] MEDS: oxyCODONE HCL 5 MG TABLET GT SCH (10:23)
[2021-07-19] MEDS: COLLAGENASE CLOSTRIDIUM HIST. 30 GRAMS TUBE TP SCH (10:24)
[2021-07-19] MEDS ORDERED: CEFEPIME HCL 1 GM VIAL (RESTRICTED TO ID) ONE (16:26)
[2021-07-19] MEDS ORDERED: DEXTROSE 5%-WATER 100 ML IVPB ONE (16:26)
[2021-07-19] MEDS ORDERED: VANCOMYCIN 1 GRAM (PRE-DOCKED) 1,000 MG/250 ML BAG IVPB ONE (16:30)
[2021-07-19] MEDS: CEFEPIME 1 GM in DEXTROSE 5%-WATER 1 GM/100 ML BAG IVPB SCH (18:26)
[2021-07-19] MEDS: ATORVASTATIN CA 40 MG TABLET (FP) GT SCH (21:56)
[2021-07-19] MEDS: OFLOXACIN 0.3% OTIC SOLUTION 5 ML BOTTLE AD SCH (21:56)
[2021-07-20] MEDS: levETIRAcetam 500 MG/5 ML ORAL SOLUTION (UNIT-DOSE CUPS) GT SCH (05:37)
[2021-07-20] MEDS: LACTOBACILLUS ACIDOPHILUS 1 TABLET PO SCH ×3 (05:37→21:05)
[2021-07-20] MEDS: NYSTATIN 500,000 UNITS/5 ML SUSPENSION PO SCH ×4 (05:37→23:15)
[2021-07-20] MEDS ORDERED: SODIUM CHLORIDE 250 ML IV PRN (10:48)
[2021-07-20] MEDS: MIDODRINE HCL 5 MG TABLET GT SCH ×2 (11:37→11:43)
[2021-07-20] MEDS ORDERED: PT OWN MED DRAWER 7, Y5N ONE (11:37)
[2021-07-20] MEDS: ZINC SULFATE 220 MG CAPSULE (FP) GT SCH (11:40)
[2021-07-20] MEDS: AMINO ACIDS/PROTEIN HYDROLYS 30 ML LIQUID.PKT GT SCH ×2 (11:40→18:44)
[2021-07-20] MEDS: oxyCODONE HCL 5 MG TABLET GT SCH (11:40)
[2021-07-20] MEDS: CARVEDILOL 3.125 MG TABLET (FP) PO SCH ×2 (11:41→21:05)
[2021-07-20] MEDS: OFLOXACIN 0.3% OTIC SOLUTION 5 ML BOTTLE AD SCH ×2 (11:41→21:05)
[2021-07-20] MEDS: MULTIVIT-MINERALS ORAL LIQUID GT SCH (11:41)
[2021-07-20] MEDS: PANTOPRAZOLE SODIUM 40 MG VIAL IVPUSH SCH ×2 (11:42→15:52)
[2021-07-20] MEDS: FAMOTIDINE 20 MG TABLET PEG SCH (11:53)
[2021-07-20] MEDS ORDERED: EPOETIN ALFA-EPBX 10,000 UNIT/ML VIAL IVPUSH ONE (12:00)
[2021-07-20] MEDS ORDERED: FLU VACC QS2021-22(6MOS UP)/PF 60 MCG/0.5 ML SYRINGE IM ONE (13:21)
[2021-07-20 13:22] LABS: BASO % 0.6 % (0-2.0); EOS % 14.2 % (0-4.5); HEMATOCRIT 22.9 % (35.4-49); HEMOGLOBIN 7.2 GM/dL (11.7-16.9); LYMPH % 16.3 % (8-40); MCH 26.4 pg (25.7-33.7); MCHC 31.3 g/dl (32.0-35.9); MEAN CELL VOLUME 84.4 fl (80-96); MEAN PLT VOLUME 6.3 fl (7.5-11.1); NEUT % 59.9 % (42.8-82.8); PLATELET COUNT 368 10^3/uL (134-434); RBC 2.71 M/mm3 (4.00-5.60); RDW 15.8 % (11.9-15.9); WHITE BLOOD COUNT 8.9 K/mm3 (4.0-10.0)
[2021-07-20 13:52] LABS: CALCIUM 9.9 mg/dL (8.5-10.1)
[2021-07-20 13:53] LABS: ALBUMIN 1.6 g/dl (3.4-5.0); BLOOD UREA NITROGEN 68.2 mg/dL (7-18)
[2021-07-20 13:56] LABS: CREATININE 5.5 mg/dL (0.55-1.3)
[2021-07-20 13:57] LABS: BILIRUBIN,TOTAL 0.4 mg/dL (0.2-1); TOT PROT 7.2 g/dl (6.4-8.2)
[2021-07-20] MEDS ORDERED: CEFEPIME HCL 1 GM VIAL (RESTRICTED TO ID) ONE (15:20)
[2021-07-20] MEDS ORDERED: DEXTROSE 5%-WATER 100 ML IVPB ONE (15:20)
[2021-07-20] MEDS: COLLAGENASE CLOSTRIDIUM HIST. 30 GRAMS TUBE TP SCH (15:52)
[2021-07-20] MEDS: CEFEPIME 1 GM in DEXTROSE 5%-WATER 1 GM/100 ML BAG IVPB SCH (15:59)
[2021-07-20] MEDS: ATORVASTATIN CA 40 MG TABLET (FP) GT SCH (21:05)
[2021-07-21] MEDS: LACTOBACILLUS ACIDOPHILUS 1 TABLET PO SCH ×3 (05:24→21:12)
[2021-07-21] MEDS: NYSTATIN 500,000 UNITS/5 ML SUSPENSION PO SCH ×4 (05:24→23:51)
[2021-07-21] MEDS: levETIRAcetam 500 MG/5 ML ORAL SOLUTION (UNIT-DOSE CUPS) GT SCH (05:24)
[2021-07-21] MEDS: COLLAGENASE CLOSTRIDIUM HIST. 30 GRAMS TUBE TP SCH (07:00)
[2021-07-21] MEDS ORDERED: PT OWN MED DRAWER 7, Y5N ONE (11:48)
[2021-07-21] MEDS: oxyCODONE HCL 5 MG TABLET GT SCH (11:52)
[2021-07-21] MEDS: ZINC SULFATE 220 MG CAPSULE (FP) GT SCH (11:52)
[2021-07-21] MEDS: MIDODRINE HCL 5 MG TABLET GT SCH ×2 (11:55→12:01)
[2021-07-21] MEDS: FAMOTIDINE 40 MG/5 ML ORAL SUSPENSION PEG SCH (11:55)
[2021-07-21] MEDS: CARVEDILOL 3.125 MG TABLET (FP) PO SCH ×2 (11:56→21:12)
[2021-07-21] MEDS: MULTIVIT-MINERALS ORAL LIQUID GT SCH (11:56)
[2021-07-21] MEDS: fentaNYL 75mcg/hr PATCH.TD72 TD SCH (11:57)
[2021-07-21] MEDS: FENTANYL PATCH WASTE TD PRN (12:00)
[2021-07-21] MEDS: AMINO ACIDS/PROTEIN HYDROLYS 30 ML LIQUID.PKT GT SCH ×2 (12:01→17:42)
[2021-07-21] MEDS: OFLOXACIN 0.3% OTIC SOLUTION 5 ML BOTTLE AD SCH ×2 (13:21→21:12)
[2021-07-21] MEDS ORDERED: DEXTROSE 5%-WATER 100 ML IVPB ONE (17:39)
[2021-07-21] MEDS ORDERED: CEFEPIME HCL 1 GM VIAL (RESTRICTED TO ID) ONE (17:39)
[2021-07-21] MEDS: CEFEPIME 1 GM in DEXTROSE 5%-WATER 1 GM/100 ML BAG IVPB SCH (17:42)
[2021-07-21] MEDS: PANTOPRAZOLE SODIUM 40 MG VIAL IVPUSH SCH (18:51)
[2021-07-21] MEDS: ATORVASTATIN CA 40 MG TABLET (FP) GT SCH (21:12)
[2021-07-22] MEDS: NYSTATIN 500,000 UNITS/5 ML SUSPENSION PO SCH ×3 (05:19→17:20)
[2021-07-22] MEDS: levETIRAcetam 500 MG/5 ML ORAL SOLUTION (UNIT-DOSE CUPS) GT SCH ×2 (05:19→10:17)
[2021-07-22] MEDS: LACTOBACILLUS ACIDOPHILUS 1 TABLET PO SCH ×3 (05:19→22:25)
[2021-07-22] MEDS: AMINO ACIDS/PROTEIN HYDROLYS 30 ML LIQUID.PKT GT SCH ×2 (09:43→16:44)
[2021-07-22] MEDS: MULTIVIT-MINERALS ORAL LIQUID GT SCH (10:03)
[2021-07-22] MEDS: ZINC SULFATE 220 MG CAPSULE (FP) GT SCH (10:03)
[2021-07-22] MEDS: FAMOTIDINE 40 MG/5 ML ORAL SUSPENSION PEG SCH (10:03)
[2021-07-22] MEDS: oxyCODONE HCL 5 MG TABLET GT SCH (10:04)
[2021-07-22] MEDS: MIDODRINE HCL 5 MG TABLET GT SCH ×2 (10:04→10:18)
[2021-07-22] MEDS: PANTOPRAZOLE SODIUM 40 MG VIAL IVPUSH SCH (10:17)
[2021-07-22] MEDS: OFLOXACIN 0.3% OTIC SOLUTION 5 ML BOTTLE AD SCH ×2 (10:18→22:27)
[2021-07-22] MEDS: CARVEDILOL 3.125 MG TABLET (FP) PO SCH ×2 (10:18→22:25)
[2021-07-22] MEDS: COLLAGENASE CLOSTRIDIUM HIST. 30 GRAMS TUBE TP SCH (10:18)
[2021-07-22 10:44] LABS: BLOOD UREA NITROGEN 58.4 mg/dL (7-18); CALCIUM 10.4 mg/dL (8.5-10.1)
[2021-07-22 10:47] LABS: CREATININE 4.9 mg/dL (0.55-1.3)
[2021-07-22] MEDS ORDERED: LIDOCAINE HCL 1%, 10 MG/ML (20ML VIAL) ONE (12:39)
[2021-07-22] MEDS ORDERED: DEXTROSE 5%-WATER 100 ML IVPB ONE (14:41)
[2021-07-22] MEDS ORDERED: CEFEPIME HCL 1 GM VIAL (RESTRICTED TO ID) ONE (14:41)
[2021-07-22] MEDS: CEFEPIME 1 GM in DEXTROSE 5%-WATER 1 GM/100 ML BAG IVPB SCH (15:00)
[2021-07-22] MEDS: ATORVASTATIN CA 40 MG TABLET (FP) GT SCH (22:25)
[2021-07-23] MEDS: NYSTATIN 500,000 UNITS/5 ML SUSPENSION PO SCH ×4 (00:32→17:35)
[2021-07-23] MEDS ORDERED: PT OWN MED DRAWER 7, Y5N ONE (05:05)
[2021-07-23] MEDS: levETIRAcetam 500 MG/5 ML ORAL SOLUTION (UNIT-DOSE CUPS) GT SCH (05:17)
[2021-07-23] MEDS: LACTOBACILLUS ACIDOPHILUS 1 TABLET PO SCH ×2 (05:39→14:04)
[2021-07-23 08:22] LABS: BASO % 0.6 % (0-2.0); EOS % 13.1 % (0-4.5); HEMATOCRIT 24.8 % (35.4-49); LYMPH % 18.1 % (8-40); MCH 26.9 pg (25.7-33.7); MCHC 32.2 g/dl (32.0-35.9); MEAN CELL VOLUME 83.4 fl (80-96); MEAN PLT VOLUME 6.1 fl (7.5-11.1); MONO % 7.8 % (3.8-10.2); NEUT % 60.4 % (42.8-82.8); PLATELET COUNT 383 10^3/uL (134-434); RBC 2.98 M/mm3 (4.00-5.60); RDW 16.6 % (11.9-15.9); WHITE BLOOD COUNT 9.6 K/mm3 (4.0-10.0)
[2021-07-23 08:41] LABS: CALCIUM 10.2 mg/dL (8.5-10.1)
[2021-07-23 08:42] LABS: BLOOD UREA NITROGEN 65.7 mg/dL (7-18)
[2021-07-23 08:45] LABS: CREATININE 5.8 mg/dL (0.55-1.3)
[2021-07-23] MEDS: PANTOPRAZOLE SODIUM 40 MG VIAL IVPUSH SCH (10:39)
[2021-07-23] MEDS: AMINO ACIDS/PROTEIN HYDROLYS 30 ML LIQUID.PKT GT SCH ×2 (12:17→17:35)
[2021-07-23] MEDS: MULTIVIT-MINERALS ORAL LIQUID GT SCH (12:17)
[2021-07-23] MEDS: ZINC SULFATE 220 MG CAPSULE (FP) GT SCH (12:18)
[2021-07-23] MEDS: oxyCODONE HCL 5 MG TABLET GT SCH (12:18)
[2021-07-23] MEDS: FAMOTIDINE 40 MG/5 ML ORAL SUSPENSION PEG SCH (12:18)
[2021-07-23] MEDS: COLLAGENASE CLOSTRIDIUM HIST. 30 GRAMS TUBE TP SCH (12:50)
[2021-07-23] MEDS: OFLOXACIN 0.3% OTIC SOLUTION 5 ML BOTTLE AD SCH ×2 (12:50→22:45)
[2021-07-23] MEDS: MIDODRINE HCL 5 MG TABLET GT SCH ×2 (12:55→12:56)
[2021-07-23] MEDS: CARVEDILOL 3.125 MG TABLET (FP) PO SCH (12:55)
[2021-07-23] MEDS ORDERED: CEFEPIME HCL 1 GM VIAL (RESTRICTED TO ID) ONE (15:55)
[2021-07-23] MEDS ORDERED: DEXTROSE 5%-WATER 100 ML IVPB ONE (15:55)
[2021-07-23] MEDS: CEFEPIME 1 GM in DEXTROSE 5%-WATER 1 GM/100 ML BAG IVPB SCH (16:39)
[2021-07-23] MEDS ORDERED: LIDOCAINE HCL 1%, 10 MG/ML (20ML VIAL) ONE (17:19)
[2021-07-23] MEDS ORDERED: HEPARIN NA (PORCINE) 5,000 UNITS/ML 1ML VIAL ONE (19:47)
[2021-07-23] MEDS ORDERED: LIDOCAINE HCL 2% (50ML VIAL) NR ONE (19:55)
[2021-07-23] MEDS ORDERED: IBUPROFEN 100 MG/5 ML UNIT DOSE CUPS GT PRN (20:42)
[2021-07-23] MEDS ORDERED: FENTANYL PATCH WASTE TD PRN (20:42)
[2021-07-23] MEDS ORDERED: ACETAMINOPHEN 325 MG TABLET (FP) PO PRN (20:42)
[2021-07-23] MEDS: LACTOBACILLUS ACIDOPHILUS 1 TABLET GT SCH (22:44)
[2021-07-23] MEDS: CARVEDILOL 3.125 MG TABLET (FP) GT SCH (22:45)
[2021-07-23] MEDS: ATORVASTATIN CA 40 MG TABLET (FP) GT SCH (22:45)
[2021-07-24] MEDS: NYSTATIN 500,000 UNITS/5 ML SUSPENSION PO SCH ×5 (01:24→23:05)
[2021-07-24] MEDS: LACTOBACILLUS ACIDOPHILUS 1 TABLET GT SCH ×3 (05:11→21:07)
[2021-07-24] MEDS: levETIRAcetam 500 MG/5 ML ORAL SOLUTION (UNIT-DOSE CUPS) GT SCH ×2 (05:11→12:21)
[2021-07-24] MEDS: MIDODRINE HCL 5 MG TABLET GT SCH ×2 (07:06→13:15)
[2021-07-24] MEDS ORDERED: SODIUM CHLORIDE 250 ML IV PRN (08:22)
[2021-07-24] MEDS ORDERED: EPOETIN ALFA-EPBX 10,000 UNIT/ML VIAL IVPUSH ONE (09:45)
[2021-07-24] MEDS ORDERED: MIDODRINE HCL 5 MG TABLET GT SCH (10:00)
[2021-07-24] MEDS ORDERED: fentaNYL 75mcg/hr PATCH.TD72 TD SCH (10:00)
[2021-07-24] MEDS ORDERED: PT OWN MED DRAWER 7, Y5N ONE (11:58)
[2021-07-24] MEDS: AMINO ACIDS/PROTEIN HYDROLYS 30 ML LIQUID.PKT GT SCH ×2 (12:16→18:11)
[2021-07-24] MEDS: FAMOTIDINE 40 MG/5 ML ORAL SUSPENSION PEG SCH (12:22)
[2021-07-24] MEDS: CARVEDILOL 3.125 MG TABLET (FP) GT SCH ×2 (12:22→21:06)
[2021-07-24] MEDS: MULTIVIT-MINERALS ORAL LIQUID GT SCH (12:23)
[2021-07-24] MEDS: ZINC SULFATE 220 MG CAPSULE (FP) GT SCH (12:23)
[2021-07-24] MEDS: PANTOPRAZOLE SODIUM 40 MG VIAL IVPUSH SCH (12:23)
[2021-07-24] MEDS: OFLOXACIN 0.3% OTIC SOLUTION 5 ML BOTTLE AD SCH ×2 (12:23→21:07)
[2021-07-24] MEDS: COLLAGENASE CLOSTRIDIUM HIST. 30 GRAMS TUBE TP SCH (12:24)
[2021-07-24] MEDS: oxyCODONE HCL 5 MG TABLET GT SCH (12:24)
[2021-07-24] MEDS ORDERED: CEFEPIME HCL 1 GM VIAL (RESTRICTED TO ID) ONE (15:45)
[2021-07-24] MEDS ORDERED: DEXTROSE 5%-WATER 100 ML IVPB ONE (15:45)
[2021-07-24] MEDS: CEFEPIME 1 GM in DEXTROSE 5%-WATER 1 GM/100 ML BAG IVPB SCH (16:13)
[2021-07-24] MEDS: ATORVASTATIN CA 40 MG TABLET (FP) GT SCH (21:07)
[2021-07-25] MEDS: LACTOBACILLUS ACIDOPHILUS 1 TABLET GT SCH ×3 (05:05→21:09)
[2021-07-25] MEDS: levETIRAcetam 500 MG/5 ML ORAL SOLUTION (UNIT-DOSE CUPS) GT SCH (05:05)
[2021-07-25] MEDS: NYSTATIN 500,000 UNITS/5 ML SUSPENSION PO SCH ×4 (05:05→23:17)
[2021-07-25] MEDS: MIDODRINE HCL 5 MG TABLET GT SCH ×2 (09:25→12:54)
[2021-07-25] MEDS ORDERED: PT OWN MED DRAWER 7, Y5N ONE (11:47)
[2021-07-25] MEDS: AMINO ACIDS/PROTEIN HYDROLYS 30 ML LIQUID.PKT GT SCH ×2 (12:52→17:12)
[2021-07-25] MEDS: PANTOPRAZOLE SODIUM 40 MG VIAL IVPUSH SCH (12:52)
[2021-07-25] MEDS: CARVEDILOL 3.125 MG TABLET (FP) GT SCH ×2 (12:53→21:09)
[2021-07-25] MEDS: oxyCODONE HCL 5 MG TABLET GT SCH (12:53)
[2021-07-25] MEDS: ZINC SULFATE 220 MG CAPSULE (FP) GT SCH (12:55)
[2021-07-25] MEDS: OFLOXACIN 0.3% OTIC SOLUTION 5 ML BOTTLE AD SCH ×2 (12:55→21:09)
[2021-07-25] MEDS: FAMOTIDINE 40 MG/5 ML ORAL SUSPENSION PEG SCH (12:55)
[2021-07-25] MEDS: COLLAGENASE CLOSTRIDIUM HIST. 30 GRAMS TUBE TP SCH (12:55)
[2021-07-25] MEDS: MULTIVIT-MINERALS ORAL LIQUID GT SCH (12:55)
[2021-07-25] MEDS ORDERED: CEFEPIME HCL 1 GM VIAL (RESTRICTED TO ID) ONE (16:49)
[2021-07-25] MEDS ORDERED: DEXTROSE 5%-WATER 100 ML IVPB ONE (16:49)
[2021-07-25] MEDS: CEFEPIME 1 GM in DEXTROSE 5%-WATER 1 GM/100 ML BAG IVPB SCH (17:12)
[2021-07-25] MEDS: ATORVASTATIN CA 40 MG TABLET (FP) GT SCH (21:09)
[2021-07-26] MEDS: NYSTATIN 500,000 UNITS/5 ML SUSPENSION PO SCH ×3 (05:17→18:12)
[2021-07-26] MEDS: LACTOBACILLUS ACIDOPHILUS 1 TABLET GT SCH ×4 (05:17→21:43)
[2021-07-26] MEDS: levETIRAcetam 500 MG/5 ML ORAL SOLUTION (UNIT-DOSE CUPS) GT SCH ×2 (05:17→11:27)
[2021-07-26 08:51] LABS: EOS % 12.4 % (0-4.5); HEMATOCRIT 24.5 % (35.4-49); HEMOGLOBIN 7.9 GM/dL (11.7-16.9); LYMPH % 21.4 % (8-40); MCH 26.5 pg (25.7-33.7); MCHC 32.1 g/dl (32.0-35.9); MEAN CELL VOLUME 82.5 fl (80-96); MEAN PLT VOLUME 6.5 fl (7.5-11.1); MONO % 6.7 % (3.8-10.2); NEUT % 58.5 % (42.8-82.8); PLATELET COUNT 348 10^3/uL (134-434); RBC 2.97 M/mm3 (4.00-5.60); RDW 16.9 % (11.9-15.9); WHITE BLOOD COUNT 10.2 K/mm3 (4.0-10.0)
[2021-07-26] MEDS: MIDODRINE HCL 5 MG TABLET GT SCH ×2 (09:11→11:14)
[2021-07-26 09:19] LABS: BLOOD UREA NITROGEN 55.1 mg/dL (7-18); CALCIUM 9.9 mg/dL (8.5-10.1)
[2021-07-26 09:21] LABS: CREATININE 5.1 mg/dL (0.55-1.3)
[2021-07-26] MEDS ORDERED: EPOETIN ALFA-EPBX 10,000 UNIT/ML VIAL IVPUSH ONE (09:30)
[2021-07-26] MEDS ORDERED: SODIUM CHLORIDE 250 ML IV PRN (10:01)
[2021-07-26] MEDS: ZINC SULFATE 220 MG CAPSULE (FP) GT SCH (11:25)
[2021-07-26] MEDS: oxyCODONE HCL 5 MG TABLET GT SCH (11:25)
[2021-07-26] MEDS: CARVEDILOL 3.125 MG TABLET (FP) GT SCH ×2 (11:25→21:43)
[2021-07-26] MEDS: MULTIVIT-MINERALS ORAL LIQUID GT SCH (11:27)
[2021-07-26] MEDS: AMINO ACIDS/PROTEIN HYDROLYS 30 ML LIQUID.PKT GT SCH ×2 (11:27→18:11)
[2021-07-26] MEDS: FAMOTIDINE 40 MG/5 ML ORAL SUSPENSION PEG SCH (11:28)
[2021-07-26] MEDS: PANTOPRAZOLE SODIUM 40 MG VIAL IVPUSH SCH (11:33)
[2021-07-26] MEDS: OFLOXACIN 0.3% OTIC SOLUTION 5 ML BOTTLE AD SCH (11:33)
[2021-07-26] MEDS: COLLAGENASE CLOSTRIDIUM HIST. 30 GRAMS TUBE TP SCH (15:56)
[2021-07-26] MEDS: CEFEPIME 1 GM in DEXTROSE 5%-WATER 1 GM/100 ML BAG IVPB SCH (17:55)
[2021-07-26 18:12] VITALS: TEMP 98.9
[2021-07-26] MEDS: ATORVASTATIN CA 40 MG TABLET (FP) GT SCH (21:43)
[2021-07-26 22:42] VITALS: BP 130/90; PULSE 92
== END 2021-07-26 22:20 | DRG 663 ==
LOC: JER 21:35 → JERBED 22:09 → J5S 07-12 09:41
PROVIDERS: ADMIT Internal Medicine; ATTEND Family Medicine
PROC: 5A1955Z Respiratory Ventilation, Greater than 96 Consecutive Hours (ICD-10-PCS; principal; 2021-07-11)
PROC: 0D20XUZ Change Feeding Device in Upper Intestinal Tract, External Approach (ICD-10-PCS; 2021-07-11)
PROC: 30233N1 Transfusion of Nonautologous Red Blood Cells into Peripheral Vein, Percutaneous Approach (ICD-10-PCS; 2021-07-12)
PROC: 5A1D70Z Performance of Urinary Filtration, Intermittent, Less than 6 Hours Per Day (ICD-10-PCS; 2021-07-12)
PROC: 02PYX3Z Removal of Infusion Device from Great Vessel, External Approach (ICD-10-PCS; 2021-07-12)
PROC: 02HV33Z Insertion of Infusion Device into Superior Vena Cava, Percutaneous Approach (ICD-10-PCS; 2021-07-12)
PROC: B518ZZA Fluoroscopy of Superior Vena Cava, Guidance (ICD-10-PCS; 2021-07-12)
PROC: 5A1D70Z Performance of Urinary Filtration, Intermittent, Less than 6 Hours Per Day (ICD-10-PCS; 2021-07-13)
PROC: 5A1D70Z Performance of Urinary Filtration, Intermittent, Less than 6 Hours Per Day (ICD-10-PCS; 2021-07-16)
PROC: 5A1D70Z Performance of Urinary Filtration, Intermittent, Less than 6 Hours Per Day (ICD-10-PCS; 2021-07-20)
PROC: 5A1D70Z Performance of Urinary Filtration, Intermittent, Less than 6 Hours Per Day (ICD-10-PCS; 2021-07-24)
PROC: 5A1D70Z Performance of Urinary Filtration, Intermittent, Less than 6 Hours Per Day (ICD-10-PCS; 2021-07-26)
DX: D64.9 Anemia, unspecified (principal); I12.0 Hypertensive chronic kidney disease with stage 5 chronic kidney disease or end stage renal disease; N18.6 End stage renal disease; R56.9 Unspecified convulsions; J96.10 Chronic respiratory failure, unspecified whether with hypoxia or hypercapnia; L89.154 Pressure ulcer of sacral region, stage 4; G93.1 Anoxic brain damage, not elsewhere classified; L89.150 Pressure ulcer of sacral region, unstageable; Z93.0 Tracheostomy status; L89.893 Pressure ulcer of other site, stage 3; G81.94 Hemiplegia, unspecified affecting left nondominant side; Z93.1 Gastrostomy status; K21.9 Gastro-esophageal reflux disease without esophagitis; G89.29 Other chronic pain; E78.5 Hyperlipidemia, unspecified; J32.4 Chronic pansinusitis; H65.03 Acute serous otitis media, bilateral; R50.9 Fever, unspecified; J98.11 Atelectasis; R93.0 Abnormal findings on diagnostic imaging of skull and head, not elsewhere classified; D72.829 Elevated white blood cell count, unspecified; K94.23 Gastrostomy malfunction; H60.91 Unspecified otitis externa, right ear; Z99.2 Dependence on renal dialysis; Z86.19 Personal history of other infectious and parasitic diseases; Z66 Do not resuscitate; Z86.73 Personal history of transient ischemic attack (TIA), and cerebral infarction without residual deficits; Y83.8 Other surgical procedures as the cause of abnormal reaction of the patient, or of later complication, without mention of misadventure at the time of the procedure
CPT/HCPCS: 36415; 36430; 70450-TC; 70480-TC; 71045-TC-FY; 74018-TC-FY; 76000-TC-FY; 80048; 80053; 82272; 82550; 82728; 82962; 83540; 83550; 84484; 85025; 85027; 85610; 85730; 86803; 86850; 86900; 86901; 86922; 87040; 87070; 87205; 87340; 90686; 93005; 93010; 94002; 94640; 94760; 99285-25; C9803; G0008; G0480; J1644; J2997; P9058; Q5106; U0003; U0005

== ENCOUNTER 2021-12-18 19:44 | Inpatient (IN) | payer OTHER ==
[2021-12-18 21:23] LABS: ALLENS TEST POSITIVE; ARTERIAL BLD GAS O2 SATURATION 98.6 % (95-98); ARTERIAL BLOOD GAS BASE EXCESS -1.1 mmol/L (-2-2); ARTERIAL BLOOD GAS PO2 117.2 mmHg (80-100); ARTERIAL BLOOD GAS pH 7.479 (7.350-7.450)
[2021-12-18] MEDS ORDERED: VANCOMYCIN 1 GM in D5W (PRE-DOCKED) 1,000 MG/250 ML IVPB ONE (21:23)
[2021-12-18 21:24] LABS: VENT MODE A/C; VENT RATE 18
[2021-12-18] MEDS ORDERED: VANCOMYCIN 2,000 MG in DEXTROSE 5%-WATER - 500 ML IVPB ONE (21:25)
[2021-12-18] MEDS ORDERED: CEFEPIME HCL/D5W 1 GM/50 ML BAG IVPB ONE (21:26)
[2021-12-18] MEDS ORDERED: LACTATED RINGERS SOLUTION 1,000 ML/1,000 ML INFUS.BAG IV STA ×2 (21:33→22:37)
[2021-12-18] MEDS ORDERED: VANCOMYCIN 1 GRAM (PRE-DOCKED) 1,000 MG/250 ML BAG IVPB ONE (21:42)
[2021-12-18] MEDS ORDERED: CEFEPIME 1 GM/100 ML BAG IVPB ONE (21:43)
[2021-12-18] MEDS ORDERED: WATER IVPB ONE (22:00)
[2021-12-18] MEDS ORDERED: GENTAMICIN IVPB ONE (22:00)
[2021-12-18] MEDS ORDERED: DEXTROSE 5% IVPB ONE (22:00)
[2021-12-18 22:06] LABS: INR 1.38 (0.83-1.09); PROTHROMBIN TIME (PATIENT) 15.9 SEC (9.7-13.0)
[2021-12-18 22:08] LABS: CHLORIDE 91 mmol/L (98-107); SODIUM 130 mmol/L (136-145)
[2021-12-18 22:09] LABS: ACTIVATED PTT 33.7 SECONDS (25.2-36.5)
[2021-12-18 22:10] LABS: CALCIUM 10.2 mg/dL (8.5-10.1)
[2021-12-18 22:11] LABS: ALBUMIN 1.5 g/dl (3.4-5.0); ANION GAP 17 MMOL/L (8-16); CO2 22 mmol/L (21-32); GLUCOSE,RANDOM 156 mg/dL (74-106)
[2021-12-18 22:14] LABS: CREATININE 4.6 mg/dL (0.55-1.3); SGOT/AST 58 U/L (15-37); SGPT/ALT 72 U/L (13-61)
[2021-12-18 22:15] LABS: BILIRUBIN,TOTAL 0.9 mg/dL (0.2-1); TOT PROT 8.1 g/dl (6.4-8.2)
[2021-12-18 22:17] LABS: ALK PHOS 260 U/L (45-117)
[2021-12-18 22:21] LABS: BLOOD UREA NITROGEN 118.2 mg/dL (7-18); LACTIC ACID 3.7 mmol/L (0.4-2.0)
[2021-12-18] MEDS ORDERED: ACETAMINOPHEN 1000 MG/100 ML BAG IVPB ONE (22:25)
[2021-12-18 22:28] LABS: HEMATOCRIT 17.4 % (35.4-49); MCHC 31.1 g/dl (32.0-35.9); MEAN CELL VOLUME 83.5 fl (80-96); MEAN PLT VOLUME 6.2 fl (7.5-11.1); PLATELET COUNT 369 10^3/uL (134-434); RBC 2.08 M/mm3 (4.00-5.60); RDW 18.7 % (11.9-15.9); WHITE BLOOD COUNT 23.1 K/mm3 (4.0-10.0)
[2021-12-18 22:36] LABS: HEMOGLOBIN 5.4 GM/dL (11.7-16.9)
[2021-12-18 22:55] LABS: EPI CELLS 7 /uL (0-25.1); HYALINE CASTS 2 /uL (0-3.1); PH,URINE 5.5 (5.0-8.0); URINE APPEARANCE TURBID; URINE BILIRUBIN NEGATIVE (NEGATIVE); URINE COLOR DK YELLOW; URINE GLUCOSE (UA) NEGATIVE (NEGATIVE); URINE KETONE NEGATIVE (NEGATIVE); URINE LEUK ESTERASE 3+ (NEGATIVE); URINE NITRITE POSITIVE (NEGATIVE); URINE PROTEIN 1+ (NEGATIVE); URINE RBC 6131 /uL (0-23.9); URINE UROBILINOGEN 0.2 mg/dL (0.2-1.0); URINE WBC 276 /uL (0-25.8)
[2021-12-18 23:55] LABS: ANISOCYTOSIS 2+; MACROCYTOSIS 0; TOXIC GRANULATION 1+
[2021-12-18 23:58] LABS: URINE BACTERIA 2 /uL (0-1359); URINE CRYSTALS NEGATIVE /hpf
[2021-12-19] MEDS ORDERED: ACETAMINOPHEN 1000 MG/100 ML BAG IVPB ONE ×3 (02:06→21:30)
[2021-12-19] MEDS ORDERED: ACETAMINOPHEN INJECTION 100 ML IVPB ONE (02:10)
[2021-12-19] MEDS: NOREPINEPHRINE BITARTRATE 16,000 MCG in SODIUM CHLORIDE 484 ML IV SCH (02:32)
[2021-12-19] MEDS ORDERED: ALBUTEROL SO4 HFA INHALER IH PRN (04:13)
[2021-12-19] MEDS ORDERED: HEPARIN NA (PORCINE) 5,000 UNITS/ML 1ML VIAL SQ SCH (06:00)
[2021-12-19] MEDS: NYSTATIN 500,000 UNITS/5 ML SUSPENSION PO SCH ×4 (06:41→23:51)
[2021-12-19] MEDS: LACTOBACILLUS ACIDOPHILUS 1 TABLET PO SCH ×3 (06:41→21:40)
[2021-12-19 07:18] LABS: CHLORIDE 91 mmol/L (98-107); SODIUM 130 mmol/L (136-145)
[2021-12-19 07:21] LABS: CALCIUM 9.5 mg/dL (8.5-10.1)
[2021-12-19 07:22] LABS: ALBUMIN 1.3 g/dl (3.4-5.0); ANION GAP 17 MMOL/L (8-16); CO2 21 mmol/L (21-32); GLUCOSE,RANDOM 189 mg/dL (74-106); MAGNESIUM 2.3 mg/dL (1.8-2.4)
[2021-12-19 07:25] LABS: CREATININE 4.5 mg/dL (0.55-1.3); PHOSPHOROUS 3.2 mg/dL (2.5-4.9); SGOT/AST 99 U/L (15-37); SGPT/ALT 83 U/L (13-61)
[2021-12-19 07:26] LABS: BILIRUBIN,TOTAL 1.1 mg/dL (0.2-1); TOT PROT 7.3 g/dl (6.4-8.2)
[2021-12-19 07:28] LABS: ALK PHOS 242 U/L (45-117)
[2021-12-19 07:47] LABS: BLOOD UREA NITROGEN 120.3 mg/dL (7-18); LACTIC ACID 3.5 mmol/L (0.4-2.0)
[2021-12-19 08:19] LABS: HEMATOCRIT 20.4 % (35.4-49); MCH 26.4 pg (25.7-33.7); MCHC 31.1 g/dl (32.0-35.9); PLATELET COUNT 373 10^3/uL (134-434); RDW 17.2 % (11.9-15.9); WHITE BLOOD COUNT 26.6 K/mm3 (4.0-10.0)
[2021-12-19] MEDS: ALBUTEROL SO4 2.5/IPRATROPIUM 0.5 INH SOL 3 ML VIAL.NEB. NEB SCH ×4 (08:20→20:18)
[2021-12-19] MEDS: OFLOXACIN 0.3% OTIC SOLUTION 5 ML BOTTLE AD SCH ×3 (08:28→21:40)
[2021-12-19] MEDS: levETIRAcetam 500 MG/5 ML ORAL SOLUTION (UNIT-DOSE CUPS) GT SCH (08:29)
[2021-12-19] MEDS: MIDODRINE HCL 5 MG TABLET GT SCH (08:30)
[2021-12-19 08:32] LABS: HEMOGLOBIN 6.3 GM/dL (11.7-16.9)
[2021-12-19 08:52] LABS: ANISOCYTOSIS 1+; MACROCYTOSIS 1+
[2021-12-19] MEDS ORDERED: LOPERAMIDE HCL 1 MG/5 ML UNIT DOSE CUP GT SCH (10:00)
[2021-12-19] MEDS ORDERED: CLOPIDOGREL BISULFATE 75 MG TABLET (FP) GT SCH (10:00)
[2021-12-19] MEDS ORDERED: VANCOMYCIN 1,000 MG in DEXTROSE 5%-WATER - 250 ML IVPB SCH (11:00)
[2021-12-19] MEDS ORDERED: VANCOMYCIN 2,000 MG in DEXTROSE 5%-WATER - 250 ML IVPB SCH (11:04)
[2021-12-19] MEDS ORDERED: CEFEPIME 0.5 GM in DEXTROSE 5%-WATER - 50 ML IVPB SCH (11:15)
[2021-12-19 12:09] LABS: IRON SERUM 15 ug/dL (50-175); TOTAL IRON BINDING CAPACITY 101 ug/dL (250-450)
[2021-12-19] MEDS ORDERED: DAPTOMYCIN 1,000 MG in SODIUM CHLORIDE 100 ML IVPB ONE (14:00)
[2021-12-19 14:05] LABS: HEMATOCRIT 24.3 % (35.4-49); HEMOGLOBIN 7.8 GM/dL (11.7-16.9); MCH 26.5 pg (25.7-33.7); MCHC 31.9 g/dl (32.0-35.9); MEAN CELL VOLUME 83.2 fl (80-96); MEAN PLT VOLUME 6.4 fl (7.5-11.1); PLATELET COUNT 372 10^3/uL (134-434); RBC 2.93 M/mm3 (4.00-5.60); RDW 17.3 % (11.9-15.9); WHITE BLOOD COUNT 22.3 K/mm3 (4.0-10.0)
[2021-12-19] MEDS ORDERED: cefTAZidime PENTAHYDRATE 1 GM VIAL (RESTRICTED TO ID) ONE (14:11)
[2021-12-19] MEDS ORDERED: DEXTROSE 5%-WATER - 50 ML IVPB ONE (14:12)
[2021-12-19] MEDS: MUPIROCIN 2% TOPICAL OINTMENT FOR DECOLONIZATION NS SCH ×2 (14:22→21:40)
[2021-12-19] MEDS: FAMOTIDINE 40 MG/5 ML ORAL SUSPENSION PEG SCH (14:24)
[2021-12-19] MEDS: FERROUS SO4 300 MG/5 ML ORAL SOLN UNIT DOSE CUPS GT SCH ×2 (14:24→21:40)
[2021-12-19] MEDS: ZINC OXIDE 20% TOPICAL OINTMENT 30 GM TUBE TP SCH (14:25)
[2021-12-19] MEDS: LOPERAMIDE HCL 1 MG/7.5 ML LIQUID GT SCH (14:26)
[2021-12-19] MEDS: CEFTAZIDIME PENTAHYDRATE 0.5 GM in DEXTROSE 5%-WATER - 50 ML IVPB SCH ×3 (14:30→18:11)
[2021-12-19] MEDS ORDERED: SODIUM CHLORIDE 250 ML IV PRN (18:53)
[2021-12-19] MEDS: ATORVASTATIN CA 40 MG TABLET (FP) GT SCH (21:41)
[2021-12-19] MEDS: CHLORHEXIDINE GLUCONATE 4% CLEANSER FOR DECOLONIZATION TP SCH (21:41)
[2021-12-19] MEDS ORDERED: VASOPRESSIN 40 UNITS/100 ML BAG IV SCH (23:45)
[2021-12-20] MEDS: NOREPINEPHRINE BITARTRATE 16,000 MCG in SODIUM CHLORIDE 484 ML IV SCH ×4 (00:01→16:42)
[2021-12-20] MEDS: CEFTAZIDIME PENTAHYDRATE 0.5 GM in DEXTROSE 5%-WATER - 50 ML IVPB SCH ×3 (02:18→17:48)
[2021-12-20] MEDS: NYSTATIN 500,000 UNITS/5 ML SUSPENSION PO SCH ×3 (05:03→17:48)
[2021-12-20] MEDS: LACTOBACILLUS ACIDOPHILUS 1 TABLET PO SCH ×3 (05:03→21:39)
[2021-12-20] MEDS: levETIRAcetam 500 MG/5 ML ORAL SOLUTION (UNIT-DOSE CUPS) GT SCH ×2 (05:03→17:48)
[2021-12-20] MEDS ORDERED: EPOETIN ALFA-EPBX 20,000 UNIT/ML VIAL SQ ONE (07:00)
[2021-12-20] MEDS ORDERED: SODIUM CHLORIDE 250 ML IV PRN (07:00)
[2021-12-20] MEDS: ALBUTEROL SO4 2.5/IPRATROPIUM 0.5 INH SOL 3 ML VIAL.NEB. NEB SCH ×4 (07:56→20:22)
[2021-12-20 08:04] LABS: HEMATOCRIT 22.3 % (35.4-49); HEMOGLOBIN 7.2 GM/dL (11.7-16.9); MCH 27.2 pg (25.7-33.7); MCHC 32.1 g/dl (32.0-35.9); MEAN CELL VOLUME 84.9 fl (80-96); MEAN PLT VOLUME 6.7 fl (7.5-11.1); PLATELET COUNT 361 10^3/uL (134-434); RBC 2.63 M/mm3 (4.00-5.60); RDW 17.1 % (11.9-15.9); WHITE BLOOD COUNT 20.5 K/mm3 (4.0-10.0)
[2021-12-20 08:21] LABS: CALCIUM 9.5 mg/dL (8.5-10.1)
[2021-12-20 08:22] LABS: ALBUMIN 1.5 g/dl (3.4-5.0); MAGNESIUM 2.4 mg/dL (1.8-2.4)
[2021-12-20 08:25] LABS: CREATININE 3.1 mg/dL (0.55-1.3); PHOSPHOROUS 2.5 mg/dL (2.5-4.9)
[2021-12-20 08:26] LABS: BILIRUBIN,TOTAL 0.9 mg/dL (0.2-1); TOT PROT 7.2 g/dl (6.4-8.2)
[2021-12-20] MEDS ORDERED: POTASSIUM CHLORIDE TABS 20 MEQ TABLET.ER (FP) PO ONE (08:27)
[2021-12-20 08:28] LABS: BLOOD UREA NITROGEN 72.5 mg/dL (7-18)
[2021-12-20] MEDS ORDERED: DEXTROSE 5%-WATER - 50 ML IVPB ONE ×2 (09:32→21:17)
[2021-12-20] MEDS ORDERED: cefTAZidime PENTAHYDRATE 1 GM VIAL (RESTRICTED TO ID) ONE ×2 (09:32→21:17)
[2021-12-20] MEDS: KCL 10 MEQ IVPB 10 MEQ/100 ML INFUS.BAG IVPB SCH ×2 (09:46→10:05)
[2021-12-20] MEDS: LOPERAMIDE HCL 1 MG/7.5 ML LIQUID GT SCH (09:55)
[2021-12-20] MEDS: MIDODRINE HCL 5 MG TABLET GT SCH (10:39)
[2021-12-20] MEDS: FERROUS SO4 300 MG/5 ML ORAL SOLN UNIT DOSE CUPS GT SCH ×2 (10:40→21:40)
[2021-12-20] MEDS: FAMOTIDINE 40 MG/5 ML ORAL SUSPENSION PEG SCH (10:41)
[2021-12-20] MEDS: OFLOXACIN 0.3% OTIC SOLUTION 5 ML BOTTLE AD SCH ×2 (10:45→21:40)
[2021-12-20] MEDS: ZINC OXIDE 20% TOPICAL OINTMENT 30 GM TUBE TP SCH (10:50)
[2021-12-20] MEDS: MUPIROCIN 2% TOPICAL OINTMENT FOR DECOLONIZATION NS SCH ×2 (10:50→21:40)
[2021-12-20] MEDS ORDERED: VANCOMYCIN/WATER FOR INJ (PEG) 1,000 MG/200 ML BAG IVPB SCH (12:00)
[2021-12-20 12:51] VITALS: BMI 42.8
[2021-12-20] MEDS ORDERED: FENTANYL PATCH WASTE TD PRN (14:08)
[2021-12-20] MEDS ORDERED: ACETAMINOPHEN 1000 MG/100 ML BAG IVPB ONE (14:15)
[2021-12-20] MEDS: HYDROCORTISONE SOD SUCCINATE 100 MG/2 ML VIAL IVPB SCH ×2 (14:25→20:39)
[2021-12-20] MEDS: SCOPOLAMINE HYDROBROMIDE 1 PATCH PATCH.TD72 TD SCH (14:25)
[2021-12-20] MEDS: FLUDROCORTISONE ACETATE 0.1 MG TABLET (FP) GT SCH (14:27)
[2021-12-20] MEDS: fentaNYL 75mcg/hr PATCH.TD72 TD SCH (14:34)
[2021-12-20] MEDS: COLLAGENASE CLOSTRIDIUM HIST. 30 GRAMS TUBE TP SCH (16:34)
[2021-12-20] MEDS: ATORVASTATIN CA 40 MG TABLET (FP) GT SCH (21:39)
[2021-12-20] MEDS: CHLORHEXIDINE GLUCONATE 4% CLEANSER FOR DECOLONIZATION TP SCH (21:40)
[2021-12-21] MEDS: NYSTATIN 500,000 UNITS/5 ML SUSPENSION PO SCH ×4 (00:29→17:47)
[2021-12-21] MEDS ORDERED: cefTAZidime PENTAHYDRATE 1 GM VIAL (RESTRICTED TO ID) ONE ×3 (00:57→17:45)
[2021-12-21] MEDS ORDERED: DEXTROSE 5%-WATER - 50 ML IVPB ONE ×3 (00:57→17:45)
[2021-12-21] MEDS: HYDROCORTISONE SOD SUCCINATE 100 MG/2 ML VIAL IVPB SCH ×4 (01:29→20:32)
[2021-12-21] MEDS: CEFTAZIDIME PENTAHYDRATE 0.5 GM in DEXTROSE 5%-WATER - 50 ML IVPB SCH ×3 (01:31→17:47)
[2021-12-21] MEDS: LACTOBACILLUS ACIDOPHILUS 1 TABLET PO SCH ×3 (06:20→21:32)
[2021-12-21] MEDS: levETIRAcetam 500 MG/5 ML ORAL SOLUTION (UNIT-DOSE CUPS) GT SCH (06:20)
[2021-12-21 07:00] LABS: HEMOGLOBIN 7.4 GM/dL (11.7-16.9); MCH 27.4 pg (25.7-33.7); MCHC 32.1 g/dl (32.0-35.9); MEAN CELL VOLUME 85.4 fl (80-96); MEAN PLT VOLUME 6.7 fl (7.5-11.1); PLATELET COUNT 355 10^3/uL (134-434); RBC 2.69 M/mm3 (4.00-5.60); RDW 17.1 % (11.9-15.9); WHITE BLOOD COUNT 23.1 K/mm3 (4.0-10.0)
[2021-12-21 07:20] LABS: BLOOD UREA NITROGEN 52.8 mg/dL (7-18); MAGNESIUM 2.1 mg/dL (1.8-2.4)
[2021-12-21 07:21] LABS: ALBUMIN 1.3 g/dl (3.4-5.0)
[2021-12-21 07:23] LABS: CREATININE 2.6 mg/dL (0.55-1.3); PHOSPHOROUS 2.8 mg/dL (2.5-4.9)
[2021-12-21 07:24] LABS: TOT PROT 7.6 g/dl (6.4-8.2)
[2021-12-21 07:25] LABS: BILIRUBIN,TOTAL 0.5 mg/dL (0.2-1)
[2021-12-21] MEDS: ALBUTEROL SO4 2.5/IPRATROPIUM 0.5 INH SOL 3 ML VIAL.NEB. NEB SCH ×4 (08:15→20:13)
[2021-12-21] MEDS: MIDODRINE HCL 5 MG TABLET GT SCH (08:52)
[2021-12-21] MEDS: AMINO ACIDS/PROTEIN HYDROLYS 30 ML LIQUID.PKT PO SCH (08:52)
[2021-12-21] MEDS: FLUDROCORTISONE ACETATE 0.1 MG TABLET (FP) GT SCH (10:35)
[2021-12-21] MEDS: LOPERAMIDE HCL 1 MG/7.5 ML LIQUID GT SCH (10:36)
[2021-12-21] MEDS: FERROUS SO4 300 MG/5 ML ORAL SOLN UNIT DOSE CUPS GT SCH ×3 (10:36→21:34)
[2021-12-21] MEDS: VITAMIN B COMP W-C 1 EA TABLET (NEPHRO-VITE) PO SCH (10:36)
[2021-12-21] MEDS: FAMOTIDINE 40 MG/5 ML ORAL SUSPENSION PEG SCH (10:37)
[2021-12-21] MEDS: MUPIROCIN 2% TOPICAL OINTMENT FOR DECOLONIZATION NS SCH ×2 (11:03→21:32)
[2021-12-21] MEDS: OFLOXACIN 0.3% OTIC SOLUTION 5 ML BOTTLE AD SCH ×2 (11:06→21:32)
[2021-12-21] MEDS: COLLAGENASE CLOSTRIDIUM HIST. 30 GRAMS TUBE TP SCH (11:08)
[2021-12-21] MEDS: ZINC OXIDE 20% TOPICAL OINTMENT 30 GM TUBE TP SCH (11:08)
[2021-12-21] MEDS: NOREPINEPHRINE BITARTRATE 16,000 MCG in SODIUM CHLORIDE 484 ML IV SCH (20:10)
[2021-12-21] MEDS: ATORVASTATIN CA 40 MG TABLET (FP) GT SCH (21:32)
[2021-12-21] MEDS: CHLORHEXIDINE GLUCONATE 4% CLEANSER FOR DECOLONIZATION TP SCH (21:32)
[2021-12-22] MEDS ORDERED: DEXTROSE 5%-WATER - 50 ML IVPB ONE ×2 (00:07→09:44)
[2021-12-22] MEDS ORDERED: cefTAZidime PENTAHYDRATE 1 GM VIAL (RESTRICTED TO ID) ONE ×2 (00:07→09:44)
[2021-12-22] MEDS: NYSTATIN 500,000 UNITS/5 ML SUSPENSION PO SCH ×4 (00:13→17:22)
[2021-12-22] MEDS: CEFTAZIDIME PENTAHYDRATE 0.5 GM in DEXTROSE 5%-WATER - 50 ML IVPB SCH ×3 (02:12→17:22)
[2021-12-22] MEDS: HYDROCORTISONE SOD SUCCINATE 100 MG/2 ML VIAL IVPB SCH ×4 (02:13→21:01)
[2021-12-22] MEDS: levETIRAcetam 500 MG/5 ML ORAL SOLUTION (UNIT-DOSE CUPS) GT SCH (06:12)
[2021-12-22] MEDS: LACTOBACILLUS ACIDOPHILUS 1 TABLET PO SCH ×3 (06:13→21:02)
[2021-12-22] MEDS: AMINO ACIDS/PROTEIN HYDROLYS 30 ML LIQUID.PKT PO SCH (08:07)
[2021-12-22] MEDS: MIDODRINE HCL 5 MG TABLET GT SCH (08:07)
[2021-12-22] MEDS: ALBUTEROL SO4 2.5/IPRATROPIUM 0.5 INH SOL 3 ML VIAL.NEB. NEB SCH ×4 (08:23→20:43)
[2021-12-22] MEDS: MUPIROCIN 2% TOPICAL OINTMENT FOR DECOLONIZATION NS SCH ×2 (09:46→21:01)
[2021-12-22] MEDS: VITAMIN B COMP W-C 1 EA TABLET (NEPHRO-VITE) PO SCH (09:46)
[2021-12-22] MEDS: OFLOXACIN 0.3% OTIC SOLUTION 5 ML BOTTLE AD SCH ×2 (09:47→21:02)
[2021-12-22] MEDS: FLUDROCORTISONE ACETATE 0.1 MG TABLET (FP) GT SCH (09:47)
[2021-12-22] MEDS: ZINC OXIDE 20% TOPICAL OINTMENT 30 GM TUBE TP SCH (09:49)
[2021-12-22] MEDS: FERROUS SO4 300 MG/5 ML ORAL SOLN UNIT DOSE CUPS GT SCH ×2 (09:51→21:01)
[2021-12-22] MEDS: FAMOTIDINE 40 MG/5 ML ORAL SUSPENSION PEG SCH (09:51)
[2021-12-22] MEDS: COLLAGENASE CLOSTRIDIUM HIST. 30 GRAMS TUBE TP SCH (10:23)
[2021-12-22] MEDS: LOPERAMIDE HCL 1 MG/7.5 ML LIQUID GT SCH (10:23)
[2021-12-22 13:40] LABS: HEMOGLOBIN 7.1 GM/dL (11.7-16.9); MCH 26.8 pg (25.7-33.7); MCHC 31.1 g/dl (32.0-35.9); MEAN CELL VOLUME 86.2 fl (80-96); MEAN PLT VOLUME 6.8 fl (7.5-11.1); PLATELET COUNT 364 10^3/uL (134-434); RBC 2.66 M/mm3 (4.00-5.60); RDW 17.4 % (11.9-15.9)
[2021-12-22] MEDS ORDERED: SODIUM CHLORIDE 250 ML IV PRN (13:54)
[2021-12-22 14:09] LABS: ALBUMIN 1.4 g/dl (3.4-5.0); BILIRUBIN,TOTAL 0.4 mg/dL (0.2-1); BLOOD UREA NITROGEN 99.6 mg/dL (7-18); CALCIUM 8.6 mg/dL (8.5-10.1); CREATININE 3.7 mg/dL (0.55-1.3); TOT PROT 7.2 g/dl (6.4-8.2)
[2021-12-22] MEDS ORDERED: IRON SUCROSE INJECTION 300 MG in SODIUM CHLORIDE 235 ML IVPB ONE (17:27)
[2021-12-22] MEDS: CHLORHEXIDINE GLUCONATE 4% CLEANSER FOR DECOLONIZATION TP SCH (21:02)
[2021-12-22] MEDS: ATORVASTATIN CA 40 MG TABLET (FP) GT SCH (21:02)
[2021-12-23] MEDS: NYSTATIN 500,000 UNITS/5 ML SUSPENSION PO SCH ×3 (00:11→11:44)
[2021-12-23] MEDS: CEFTAZIDIME PENTAHYDRATE 0.5 GM in DEXTROSE 5%-WATER - 50 ML IVPB SCH ×2 (02:12→10:00)
[2021-12-23] MEDS: HYDROCORTISONE SOD SUCCINATE 100 MG/2 ML VIAL IVPB SCH ×4 (02:29→21:41)
[2021-12-23] MEDS: levETIRAcetam 500 MG/5 ML ORAL SOLUTION (UNIT-DOSE CUPS) GT SCH ×2 (05:22→17:45)
[2021-12-23] MEDS: LACTOBACILLUS ACIDOPHILUS 1 TABLET PO SCH ×3 (05:22→21:42)
[2021-12-23] MEDS ORDERED: EPOETIN ALFA-EPBX 20,000 UNIT/ML VIAL IVPUSH ONE (08:00)
[2021-12-23] MEDS: MIDODRINE HCL 5 MG TABLET GT SCH (08:08)
[2021-12-23] MEDS: AMINO ACIDS/PROTEIN HYDROLYS 30 ML LIQUID.PKT PO SCH (08:09)
[2021-12-23] MEDS: ALBUTEROL SO4 2.5/IPRATROPIUM 0.5 INH SOL 3 ML VIAL.NEB. NEB SCH ×4 (08:15→20:21)
[2021-12-23 09:12] LABS: HEMATOCRIT 22.4 % (35.4-49); MCH 27.1 pg (25.7-33.7); MCHC 31.4 g/dl (32.0-35.9); MEAN CELL VOLUME 86.3 fl (80-96); PLATELET COUNT 379 10^3/uL (134-434); RDW 17.1 % (11.9-15.9); WHITE BLOOD COUNT 16.9 K/mm3 (4.0-10.0)
[2021-12-23 09:36] LABS: CHLORIDE 101 mmol/L (98-107); SODIUM 139 mmol/L (136-145)
[2021-12-23 09:37] LABS: ANION GAP 13 MMOL/L (8-16); CALCIUM 8.9 mg/dL (8.5-10.1); CO2 26 mmol/L (21-32); GLUCOSE,RANDOM 226 mg/dL (74-106)
[2021-12-23 09:41] LABS: CREATININE 3.9 mg/dL (0.55-1.3)
[2021-12-23 09:51] LABS: BLOOD UREA NITROGEN 124.2 mg/dL (7-18)
[2021-12-23] MEDS: MUPIROCIN 2% TOPICAL OINTMENT FOR DECOLONIZATION NS SCH ×2 (10:01→21:41)
[2021-12-23] MEDS: COLLAGENASE CLOSTRIDIUM HIST. 30 GRAMS TUBE TP SCH (10:01)
[2021-12-23] MEDS: OFLOXACIN 0.3% OTIC SOLUTION 5 ML BOTTLE AD SCH ×2 (10:02→21:41)
[2021-12-23] MEDS: FLUDROCORTISONE ACETATE 0.1 MG TABLET (FP) GT SCH (11:31)
[2021-12-23] MEDS: FERROUS SO4 300 MG/5 ML ORAL SOLN UNIT DOSE CUPS GT SCH ×2 (11:31→21:42)
[2021-12-23] MEDS: VITAMIN B COMP W-C 1 EA TABLET (NEPHRO-VITE) PO SCH (11:31)
[2021-12-23] MEDS: FAMOTIDINE 40 MG/5 ML ORAL SUSPENSION PEG SCH (11:31)
[2021-12-23] MEDS: ZINC OXIDE 20% TOPICAL OINTMENT 30 GM TUBE TP SCH (11:34)
[2021-12-23] MEDS: LOPERAMIDE HCL 1 MG/7.5 ML LIQUID GT SCH (11:44)
[2021-12-23] MEDS: SCOPOLAMINE HYDROBROMIDE 1 PATCH PATCH.TD72 TD SCH (13:40)
[2021-12-23] MEDS: fentaNYL 75mcg/hr PATCH.TD72 TD SCH (13:44)
[2021-12-23] MEDS ORDERED: DEXTROSE 5%-WATER - 50 ML IVPB ONE (17:36)
[2021-12-23] MEDS ORDERED: PIPERACILLIN/TAZOBACTAM 2.25 GM VIAL IVPB ONE (17:36)
[2021-12-23] MEDS: PIPERACILLIN/TAZOB 2.25 GM 2.25 GM in DEXTROSE 5%-WATER - 50 ML IVPB SCH (17:43)
[2021-12-23] MEDS: ATORVASTATIN CA 40 MG TABLET (FP) GT SCH (21:41)
[2021-12-23] MEDS: CHLORHEXIDINE GLUCONATE 4% CLEANSER FOR DECOLONIZATION TP SCH (21:42)
[2021-12-23] MEDS: FENTANYL PATCH WASTE MC PRN (23:00)
[2021-12-24] MEDS ORDERED: PIPERACILLIN/TAZOBACTAM 2.25 GM VIAL IVPB ONE ×3 (00:49→17:25)
[2021-12-24] MEDS ORDERED: DEXTROSE 5%-WATER - 50 ML IVPB ONE ×3 (00:49→17:25)
[2021-12-24] MEDS: PIPERACILLIN/TAZOB 2.25 GM 2.25 GM in DEXTROSE 5%-WATER - 50 ML IVPB SCH ×3 (01:32→17:30)
[2021-12-24] MEDS: HYDROCORTISONE SOD SUCCINATE 100 MG/2 ML VIAL IVPB SCH ×4 (02:08→21:21)
[2021-12-24 06:47] LABS: HEMATOCRIT 27.9 % (35.4-49); HEMOGLOBIN 8.7 GM/dL (11.7-16.9); MCH 27.1 pg (25.7-33.7); MCHC 31.2 g/dl (32.0-35.9); MEAN CELL VOLUME 86.9 fl (80-96); MEAN PLT VOLUME 7.2 fl (7.5-11.1); PLATELET COUNT 427 10^3/uL (134-434); RBC 3.22 M/mm3 (4.00-5.60); RDW 17.4 % (11.9-15.9); WHITE BLOOD COUNT 18.6 K/mm3 (4.0-10.0)
[2021-12-24] MEDS: LACTOBACILLUS ACIDOPHILUS 1 TABLET PO SCH ×3 (06:58→21:21)
[2021-12-24] MEDS: levETIRAcetam 500 MG/5 ML ORAL SOLUTION (UNIT-DOSE CUPS) GT SCH (06:59)
[2021-12-24 07:10] LABS: CALCIUM 8.9 mg/dL (8.5-10.1); MAGNESIUM 2.3 mg/dL (1.8-2.4)
[2021-12-24 07:13] LABS: PHOSPHOROUS 3.4 mg/dL (2.5-4.9)
[2021-12-24 07:15] LABS: BILIRUBIN,TOTAL 0.4 mg/dL (0.2-1); TOT PROT 7.3 g/dl (6.4-8.2)
[2021-12-24] MEDS: ALBUTEROL SO4 2.5/IPRATROPIUM 0.5 INH SOL 3 ML VIAL.NEB. NEB SCH ×4 (07:40→19:26)
[2021-12-24 07:44] LABS: ALBUMIN 1.7 g/dl (3.4-5.0)
[2021-12-24] MEDS: fentaNYL 75mcg/hr PATCH.TD72 TD SCH (09:10)
[2021-12-24] MEDS: AMINO ACIDS/PROTEIN HYDROLYS 30 ML LIQUID.PKT PO SCH (09:12)
[2021-12-24] MEDS: FLUDROCORTISONE ACETATE 0.1 MG TABLET (FP) GT SCH (09:13)
[2021-12-24] MEDS: VITAMIN B COMP W-C 1 EA TABLET (NEPHRO-VITE) PO SCH (09:13)
[2021-12-24] MEDS: MIDODRINE HCL 5 MG TABLET GT SCH (09:13)
[2021-12-24] MEDS: ZINC SULFATE 220 MG CAPSULE (FP) GT SCH (09:14)
[2021-12-24] MEDS: LOPERAMIDE HCL 1 MG/7.5 ML LIQUID GT SCH (09:14)
[2021-12-24] MEDS: FERROUS SO4 300 MG/5 ML ORAL SOLN UNIT DOSE CUPS GT SCH ×2 (09:15→21:22)
[2021-12-24] MEDS: FAMOTIDINE 40 MG/5 ML ORAL SUSPENSION PEG SCH (09:15)
[2021-12-24] MEDS: ZINC OXIDE 20% TOPICAL OINTMENT 30 GM TUBE TP SCH (09:16)
[2021-12-24] MEDS: OFLOXACIN 0.3% OTIC SOLUTION 5 ML BOTTLE AD SCH ×2 (09:21→21:42)
[2021-12-24] MEDS: COLLAGENASE CLOSTRIDIUM HIST. 30 GRAMS TUBE TP SCH (10:23)
[2021-12-24] MEDS ORDERED: ALBUTEROL SO4 HFA INHALER IH PRN (13:54)
[2021-12-24] MEDS: ATORVASTATIN CA 40 MG TABLET (FP) GT SCH (21:22)
[2021-12-24] MEDS ORDERED: CHLORHEXIDINE GLUCONATE 4% CLEANSER FOR DECOLONIZATION TP SCH (22:00)
[2021-12-25] MEDS ORDERED: PIPERACILLIN/TAZOBACTAM 2.25 GM VIAL IVPB ONE ×2 (01:07→11:53)
[2021-12-25] MEDS ORDERED: DEXTROSE 5%-WATER - 50 ML IVPB ONE ×3 (01:08→21:54)
[2021-12-25] MEDS: PIPERACILLIN/TAZOB 2.25 GM 2.25 GM in DEXTROSE 5%-WATER - 50 ML IVPB SCH ×2 (01:20→13:22)
[2021-12-25] MEDS: HYDROCORTISONE SOD SUCCINATE 100 MG/2 ML VIAL IVPB SCH ×4 (03:33→20:33)
[2021-12-25] MEDS: levETIRAcetam 500 MG/5 ML ORAL SOLUTION (UNIT-DOSE CUPS) GT SCH ×2 (05:25→17:33)
[2021-12-25] MEDS: LACTOBACILLUS ACIDOPHILUS 1 TABLET PO SCH ×3 (05:25→22:00)
[2021-12-25] MEDS ORDERED: EPOETIN ALFA-EPBX 20,000 UNIT/ML VIAL SQ ONE (07:00)
[2021-12-25] MEDS ORDERED: SODIUM CHLORIDE 250 ML IV PRN (07:00)
[2021-12-25] MEDS: MIDODRINE HCL 5 MG TABLET GT SCH (08:00)
[2021-12-25 08:31] LABS: HEMATOCRIT 27.4 % (35.4-49); HEMOGLOBIN 8.5 GM/dL (11.7-16.9); MCHC 31.2 g/dl (32.0-35.9); MEAN CELL VOLUME 86.4 fl (80-96); MEAN PLT VOLUME 7.2 fl (7.5-11.1); PLATELET COUNT 412 10^3/uL (134-434); RBC 3.16 M/mm3 (4.00-5.60); WHITE BLOOD COUNT 18.2 K/mm3 (4.0-10.0)
[2021-12-25 08:48] LABS: CHLORIDE 99 mmol/L (98-107); SODIUM 138 mmol/L (136-145)
[2021-12-25 08:52] LABS: ALBUMIN 1.7 g/dl (3.4-5.0); ANION GAP 15 MMOL/L (8-16); CALCIUM 8.5 mg/dL (8.5-10.1); CO2 24 mmol/L (21-32); GLUCOSE,RANDOM 236 mg/dL (74-106); MAGNESIUM 2.4 mg/dL (1.8-2.4)
[2021-12-25 08:54] LABS: CREATININE 3.5 mg/dL (0.55-1.3); PHOSPHOROUS 5.4 mg/dL (2.5-4.9); SGOT/AST 8 U/L (15-37); SGPT/ALT 19 U/L (13-61)
[2021-12-25] MEDS: ALBUTEROL SO4 2.5/IPRATROPIUM 0.5 INH SOL 3 ML VIAL.NEB. NEB SCH ×4 (08:56→20:45)
[2021-12-25 08:57] LABS: BILIRUBIN,TOTAL 1.1 mg/dL (0.2-1); TOT PROT 6.9 g/dl (6.4-8.2)
[2021-12-25 08:58] LABS: ALK PHOS 156 U/L (45-117); BLOOD UREA NITROGEN 121.4 mg/dL (7-18)
[2021-12-25] MEDS: amLODIPine BESYLATE 5 MG TABLET (FP) GT SCH (11:56)
[2021-12-25] MEDS: VITAMIN B COMP W-C 1 EA TABLET (NEPHRO-VITE) PO SCH (11:56)
[2021-12-25] MEDS: FLUDROCORTISONE ACETATE 0.1 MG TABLET (FP) GT SCH (11:57)
[2021-12-25] MEDS: AMINO ACIDS/PROTEIN HYDROLYS 30 ML LIQUID.PKT PO SCH (11:58)
[2021-12-25] MEDS: ZINC SULFATE 220 MG CAPSULE (FP) GT SCH (11:58)
[2021-12-25] MEDS: FERROUS SO4 300 MG/5 ML ORAL SOLN UNIT DOSE CUPS GT SCH ×2 (12:00→22:00)
[2021-12-25] MEDS: FAMOTIDINE 40 MG/5 ML ORAL SUSPENSION PEG SCH (12:00)
[2021-12-25] MEDS: LOPERAMIDE HCL 1 MG/7.5 ML LIQUID GT SCH (12:00)
[2021-12-25] MEDS: OFLOXACIN 0.3% OTIC SOLUTION 5 ML BOTTLE AD SCH ×2 (12:10→22:01)
[2021-12-25] MEDS: COLLAGENASE CLOSTRIDIUM HIST. 30 GRAMS TUBE TP SCH (14:58)
[2021-12-25] MEDS: CEFTAZIDIME PENTAHYDRATE 0.5 GM in DEXTROSE 5%-WATER - 50 ML IVPB SCH ×2 (14:58→21:59)
[2021-12-25] MEDS: ZINC OXIDE 20% TOPICAL OINTMENT 30 GM TUBE TP SCH (14:58)
[2021-12-25] MEDS: INSULIN SLIDING SCALE (NOVOLOG) 1 VIAL SQ SCH (17:28)
[2021-12-25] MEDS ORDERED: cefTAZidime PENTAHYDRATE 1 GM VIAL (RESTRICTED TO ID) ONE (21:53)
[2021-12-25] MEDS: ATORVASTATIN CA 40 MG TABLET (FP) GT SCH (22:00)
[2021-12-26] MEDS: HYDROCORTISONE SOD SUCCINATE 100 MG/2 ML VIAL IVPB SCH ×4 (03:31→21:35)
[2021-12-26] MEDS: INSULIN SLIDING SCALE (NOVOLOG) 1 VIAL SQ SCH ×2 (06:51→17:30)
[2021-12-26] MEDS: LACTOBACILLUS ACIDOPHILUS 1 TABLET PO SCH ×3 (06:51→21:35)
[2021-12-26] MEDS: levETIRAcetam 500 MG/5 ML ORAL SOLUTION (UNIT-DOSE CUPS) GT SCH (06:51)
[2021-12-26] MEDS: ALBUTEROL SO4 2.5/IPRATROPIUM 0.5 INH SOL 3 ML VIAL.NEB. NEB SCH ×4 (08:16→20:50)
[2021-12-26] MEDS ORDERED: cefTAZidime PENTAHYDRATE 1 GM VIAL (RESTRICTED TO ID) ONE (09:30)
[2021-12-26] MEDS ORDERED: DEXTROSE 5%-WATER - 50 ML IVPB ONE (09:30)
[2021-12-26] MEDS: AMINO ACIDS/PROTEIN HYDROLYS 30 ML LIQUID.PKT PO SCH (09:37)
[2021-12-26] MEDS: MIDODRINE HCL 5 MG TABLET GT SCH (09:43)
[2021-12-26] MEDS: VITAMIN B COMP W-C 1 EA TABLET (NEPHRO-VITE) PO SCH (09:43)
[2021-12-26] MEDS: FERROUS SO4 300 MG/5 ML ORAL SOLN UNIT DOSE CUPS GT SCH ×2 (09:43→21:35)
[2021-12-26] MEDS: ZINC SULFATE 220 MG CAPSULE (FP) GT SCH (09:43)
[2021-12-26] MEDS: FLUDROCORTISONE ACETATE 0.1 MG TABLET (FP) GT SCH (09:44)
[2021-12-26] MEDS: FAMOTIDINE 40 MG/5 ML ORAL SUSPENSION PEG SCH (09:45)
[2021-12-26] MEDS: LOPERAMIDE HCL 1 MG/7.5 ML LIQUID GT SCH (09:45)
[2021-12-26] MEDS: amLODIPine BESYLATE 5 MG TABLET (FP) GT SCH (09:45)
[2021-12-26] MEDS: OFLOXACIN 0.3% OTIC SOLUTION 5 ML BOTTLE AD SCH ×2 (09:46→21:35)
[2021-12-26] MEDS: COLLAGENASE CLOSTRIDIUM HIST. 30 GRAMS TUBE TP SCH (09:46)
[2021-12-26] MEDS: ZINC OXIDE 20% TOPICAL OINTMENT 30 GM TUBE TP SCH (09:46)
[2021-12-26] MEDS: CEFTAZIDIME PENTAHYDRATE 0.5 GM in DEXTROSE 5%-WATER - 50 ML IVPB SCH ×2 (09:59→21:35)
[2021-12-26] MEDS ORDERED: SCOPOLAMINE HYDROBROMIDE 1 PATCH PATCH.TD72 TD SCH (14:15)
[2021-12-26] MEDS: ATORVASTATIN CA 40 MG TABLET (FP) GT SCH (21:35)
[2021-12-27] MEDS: HYDROCORTISONE SOD SUCCINATE 100 MG/2 ML VIAL IVPB SCH ×4 (02:32→21:09)
[2021-12-27] MEDS: INSULIN SLIDING SCALE (NOVOLOG) 1 VIAL SQ SCH ×2 (06:07→17:59)
[2021-12-27] MEDS: LACTOBACILLUS ACIDOPHILUS 1 TABLET PO SCH ×3 (06:08→21:55)
[2021-12-27] MEDS: levETIRAcetam 500 MG/5 ML ORAL SOLUTION (UNIT-DOSE CUPS) GT SCH ×2 (06:08→18:06)
[2021-12-27] MEDS: ALBUTEROL SO4 2.5/IPRATROPIUM 0.5 INH SOL 3 ML VIAL.NEB. NEB SCH ×4 (08:12→19:51)
[2021-12-27] MEDS: CEFTAZIDIME PENTAHYDRATE 0.5 GM in DEXTROSE 5%-WATER - 50 ML IVPB SCH (09:52)
[2021-12-27] MEDS: fentaNYL 75mcg/hr PATCH.TD72 TD SCH (10:02)
[2021-12-27] MEDS: ZINC SULFATE 220 MG CAPSULE (FP) GT SCH (10:05)
[2021-12-27] MEDS: VITAMIN B COMP W-C 1 EA TABLET (NEPHRO-VITE) PO SCH (10:05)
[2021-12-27] MEDS: FLUDROCORTISONE ACETATE 0.1 MG TABLET (FP) GT SCH (10:06)
[2021-12-27] MEDS: AMINO ACIDS/PROTEIN HYDROLYS 30 ML LIQUID.PKT PO SCH (10:07)
[2021-12-27] MEDS: FERROUS SO4 300 MG/5 ML ORAL SOLN UNIT DOSE CUPS GT SCH ×2 (10:07→21:52)
[2021-12-27] MEDS: OFLOXACIN 0.3% OTIC SOLUTION 5 ML BOTTLE AD SCH ×2 (10:09→21:55)
[2021-12-27] MEDS: FAMOTIDINE 40 MG/5 ML ORAL SUSPENSION PEG SCH (10:10)
[2021-12-27] MEDS: LOPERAMIDE HCL 1 MG/7.5 ML LIQUID GT SCH (10:10)
[2021-12-27] MEDS: ZINC OXIDE 20% TOPICAL OINTMENT 30 GM TUBE TP SCH (10:11)
[2021-12-27] MEDS: COLLAGENASE CLOSTRIDIUM HIST. 30 GRAMS TUBE TP SCH (10:11)
[2021-12-27] MEDS: FENTANYL PATCH WASTE MC PRN (10:24)
[2021-12-27] MEDS ORDERED: MIDODRINE HCL 5 MG TABLET GT SCH (11:15)
[2021-12-27] MEDS: amLODIPine BESYLATE 5 MG TABLET (FP) GT SCH (11:46)
[2021-12-27] MEDS: MIDODRINE HCL 5 MG TABLET GT SCH (12:08)
[2021-12-27] MEDS ORDERED: EPOETIN ALFA-EPBX 20,000 UNIT/ML VIAL SQ ONE (13:00)
[2021-12-27] MEDS ORDERED: SODIUM CHLORIDE 250 ML IV PRN (13:00)
[2021-12-27 13:24] LABS: HEMOGLOBIN 8.9 GM/dL (11.7-16.9); MCH 26.7 pg (25.7-33.7); MCHC 30.6 g/dl (32.0-35.9); MEAN CELL VOLUME 87.4 fl (80-96); MEAN PLT VOLUME 7.4 fl (7.5-11.1); PLATELET COUNT 474 10^3/uL (134-434); RBC 3.32 M/mm3 (4.00-5.60); WHITE BLOOD COUNT 20.7 K/mm3 (4.0-10.0)
[2021-12-27 13:53] LABS: CALCIUM 8.2 mg/dL (8.5-10.1)
[2021-12-27 13:54] LABS: ALBUMIN 1.4 g/dl (3.4-5.0); MAGNESIUM 2.1 mg/dL (1.8-2.4)
[2021-12-27 13:56] LABS: CREATININE 3.5 mg/dL (0.55-1.3); PHOSPHOROUS 5.6 mg/dL (2.5-4.9)
[2021-12-27 13:58] LABS: BILIRUBIN,TOTAL 0.6 mg/dL (0.2-1); TOT PROT 6.5 g/dl (6.4-8.2)
[2021-12-27] MEDS: ATORVASTATIN CA 40 MG TABLET (FP) GT SCH (21:52)
[2021-12-28] MEDS: HYDROCORTISONE SOD SUCCINATE 100 MG/2 ML VIAL IVPB SCH ×2 (01:47→09:02)
[2021-12-28] MEDS: INSULIN SLIDING SCALE (NOVOLOG) 1 VIAL SQ SCH ×2 (06:01→16:48)
[2021-12-28] MEDS: levETIRAcetam 500 MG/5 ML ORAL SOLUTION (UNIT-DOSE CUPS) GT SCH (06:04)
[2021-12-28] MEDS: LACTOBACILLUS ACIDOPHILUS 1 TABLET PO SCH ×2 (06:05→13:33)
[2021-12-28] MEDS: ALBUTEROL SO4 2.5/IPRATROPIUM 0.5 INH SOL 3 ML VIAL.NEB. NEB SCH ×3 (08:11→16:17)
[2021-12-28] MEDS: AMINO ACIDS/PROTEIN HYDROLYS 30 ML LIQUID.PKT PO SCH (09:02)
[2021-12-28] MEDS: amLODIPine BESYLATE 5 MG TABLET (FP) GT SCH (09:03)
[2021-12-28] MEDS: FLUDROCORTISONE ACETATE 0.1 MG TABLET (FP) GT SCH (09:03)
[2021-12-28] MEDS: FERROUS SO4 300 MG/5 ML ORAL SOLN UNIT DOSE CUPS GT SCH (09:04)
[2021-12-28] MEDS: VITAMIN B COMP W-C 1 EA TABLET (NEPHRO-VITE) PO SCH (09:04)
[2021-12-28] MEDS: LOPERAMIDE HCL 1 MG/7.5 ML LIQUID GT SCH (09:04)
[2021-12-28] MEDS: FAMOTIDINE 40 MG/5 ML ORAL SUSPENSION PEG SCH (09:04)
[2021-12-28] MEDS: ZINC SULFATE 220 MG CAPSULE (FP) GT SCH (09:04)
[2021-12-28] MEDS: OFLOXACIN 0.3% OTIC SOLUTION 5 ML BOTTLE AD SCH (09:05)
[2021-12-28] MEDS: COLLAGENASE CLOSTRIDIUM HIST. 30 GRAMS TUBE TP SCH (10:53)
[2021-12-28] MEDS: ZINC OXIDE 20% TOPICAL OINTMENT 30 GM TUBE TP SCH (10:53)
[2021-12-28 17:28] VITALS: BP 137/71; PULSE 112; TEMP 98.6
[2021-12-28] MEDS ORDERED: HYDROCORTISONE SOD SUCCINATE 100 MG/2 ML VIAL IVPB SCH (18:00)
[2021-12-28 19:08] LABS: SARS-CoV-2 NAA Not Detected (Not Detected)
== END 2021-12-28 18:04 | DRG 720 ==
LOC: JER 19:44 → JERBED 12-19 02:18 → JICU 12-19 03:46 → J5S 12-24 13:35
PROVIDERS: ADMIT Internal Medicine Pulmonary Disease; ATTEND Family Medicine
PROC: 5A1955Z Respiratory Ventilation, Greater than 96 Consecutive Hours (ICD-10-PCS; principal; 2021-12-18)
PROC: 30233N1 Transfusion of Nonautologous Red Blood Cells into Peripheral Vein, Percutaneous Approach (ICD-10-PCS; 2021-12-18)
PROC: 5A1D70Z Performance of Urinary Filtration, Intermittent, Less than 6 Hours Per Day (ICD-10-PCS; 2021-12-27)
DX: A41.9 Sepsis, unspecified organism (principal); G40.919 Epilepsy, unspecified, intractable, without status epilepticus; J96.10 Chronic respiratory failure, unspecified whether with hypoxia or hypercapnia; L89.154 Pressure ulcer of sacral region, stage 4; L89.104 Pressure ulcer of unspecified part of back, stage 4; R65.21 Severe sepsis with septic shock; Z93.0 Tracheostomy status; E87.2 Acidosis; J44.9 Chronic obstructive pulmonary disease, unspecified; E66.01 Morbid (severe) obesity due to excess calories; E87.1 Hypo-osmolality and hyponatremia; I12.0 Hypertensive chronic kidney disease with stage 5 chronic kidney disease or end stage renal disease; N18.6 End stage renal disease; Z68.41 Body mass index [BMI] 40.0-44.9, adult; D63.1 Anemia in chronic kidney disease; D72.829 Elevated white blood cell count, unspecified; E78.5 Hyperlipidemia, unspecified; K21.9 Gastro-esophageal reflux disease without esophagitis; N39.0 Urinary tract infection, site not specified; Z99.2 Dependence on renal dialysis; E87.6 Hypokalemia; R74.01 Elevation of levels of liver transaminase levels; I95.9 Hypotension, unspecified
CPT/HCPCS: 36415; 36430; 36600; 71045-TC-FY; 80048; 80053; 81003; 82272; 82553; 82728; 82803; 82962; 83540; 83550; 83605; 83735; 84100; 84484; 85025; 85027; 85610; 85730; 86803; 86850; 86900; 86901; 86922; 87040; 87070; 87077; 87086; 87186; 87205; 87340; 93005; 93010; 94002; 94640; 99285-25; C9803-CS; J0878; J1644; J1756; J3490; P9058; U0003; U0005

== ENCOUNTER 2022-01-09 10:42 | Inpatient (IN) | payer OTHER ==
[2022-01-09 11:04] VITALS: BMI 39.4
[2022-01-09] MEDS ORDERED: PIPERACILLIN/TAZOB 4.5 GM 4.5 GM in DEXTROSE 5%-WATER 100 ML IVPB ONE (11:10)
[2022-01-09] MEDS ORDERED: VANCOMYCIN 1,000 MG in DEXTROSE 5%-WATER - 250 ML IVPB ONE (11:10)
[2022-01-09] MEDS ORDERED: VANCOMYCIN 1 GRAM (PRE-DOCKED) 1,000 MG/250 ML BAG IVPB ONE ×2 (11:37→11:38)
[2022-01-09] MEDS ORDERED: PIPERACILLIN/TAZOB 4.5 GM 4.5 GM/100 ML BAG IVPB ONE (11:37)
[2022-01-09 11:48] LABS: BASO % 0.3 % (0-2.0); EOS % 1.7 % (0-4.5); HEMATOCRIT 17.9 % (35.4-49); LYMPH % 11.8 % (8-40); MCH 28.1 pg (25.7-33.7); MCHC 32.3 g/dl (32.0-35.9); MEAN CELL VOLUME 87.1 fl (80-96); MEAN PLT VOLUME 6.9 fl (7.5-11.1); MONO % 6.5 % (3.8-10.2); NEUT % 79.7 % (42.8-82.8); PLATELET COUNT 238 10^3/uL (134-434); RBC 2.06 M/mm3 (4.00-5.60); RDW 17.6 % (11.9-15.9); WHITE BLOOD COUNT 10.3 K/mm3 (4.0-10.0)
[2022-01-09 11:53] LABS: INR 1.23 (0.83-1.09); PROTHROMBIN TIME (PATIENT) 14.2 SEC (9.7-13.0)
[2022-01-09 11:55] LABS: HEMOGLOBIN 5.8 GM/dL (11.7-16.9)
[2022-01-09 11:56] LABS: ACTIVATED PTT 32.9 SECONDS (25.2-36.5)
[2022-01-09 12:07] LABS: ALBUMIN 1.5 g/dl (3.4-5.0); CALCIUM 8.8 mg/dL (8.5-10.1)
[2022-01-09 12:10] LABS: CREATININE 2.2 mg/dL (0.55-1.3)
[2022-01-09 12:12] LABS: BILIRUBIN,TOTAL 0.3 mg/dL (0.2-1); TOT PROT 6.8 g/dl (6.4-8.2)
[2022-01-09 12:16] LABS: BLOOD UREA NITROGEN 37.1 mg/dL (7-18)
[2022-01-09 12:18] LABS: EPI CELLS 8 /uL (0-25.1); HYALINE CASTS 8 /uL (0-3.1); URINE APPEARANCE TURBID; URINE BILIRUBIN 1+ (NEGATIVE); URINE COLOR ORANGE; URINE GLUCOSE (UA) NEGATIVE (NEGATIVE); URINE KETONE NEGATIVE (NEGATIVE); URINE LEUK ESTERASE 2+ (NEGATIVE); URINE NITRITE POSITIVE (NEGATIVE); URINE PROTEIN 3+ (NEGATIVE); URINE RBC 116 /uL (0-23.9); URINE UROBILINOGEN 0.2 mg/dL (0.2-1.0); URINE WBC 1126 /uL (0-25.8)
[2022-01-09 12:23] LABS: LACTIC ACID 2.5 mmol/L (0.4-2.0)
[2022-01-09] MEDS ORDERED: ACETAMINOPHEN 1000 MG/100 ML BAG IVPB ONE (12:51)
[2022-01-09] MEDS ORDERED: ACETAMINOPHEN INJECTION 100 ML IVPB ONE (13:16)
[2022-01-09 13:54] LABS: VENOUS BASE EXCESS 1.9 mmol/L (-2-2); VENOUS O2 SATURATION 72.7 % (70-80); VENOUS PCO2 52.4 mmHg (38-52); VENOUS PH 7.343 (7.310-7.410)
[2022-01-09 14:50] LABS: LACTIC ACID 2.2 mmol/L (0.4-2.0)
[2022-01-09] MEDS ORDERED: ALBUTEROL SO4 HFA INHALER IH PRN (16:04)
[2022-01-09] MEDS ORDERED: oxyCODONE HCL 5 MG TABLET GT PRN (16:05)
[2022-01-09] MEDS ORDERED: PATIENT'S OWN MEDICATION (NON-FORMULARY) (Vit A/Vitamin D3/E/Aloe V/Zinc [Periguard Ointme TP SCH (16:15)
[2022-01-09] MEDS ORDERED: levETIRAcetam 500 MG/5 ML ORAL SOLUTION (UNIT-DOSE CUPS) GT SCH (16:15)
[2022-01-09] MEDS ORDERED: ALBUTEROL SO4 2.5/IPRATROPIUM 0.5 INH SOL 3 ML VIAL.NEB. NEB ONE ×2 (17:58→21:32)
[2022-01-09] MEDS: NYSTATIN 500,000 UNITS/5 ML SUSPENSION PO SCH ×2 (18:03→22:13)
[2022-01-09] MEDS: ALBUTEROL SO4 2.5/IPRATROPIUM 0.5 INH SOL 3 ML VIAL.NEB. NEB SCH ×2 (19:36→21:41)
[2022-01-09] MEDS ORDERED: fentaNYL 75mcg/hr PATCH.TD72 ONE (19:36)
[2022-01-09] MEDS ORDERED: SODIUM CHLORIDE 250 ML IV PRN (19:37)
[2022-01-09] MEDS: fentaNYL 75mcg/hr PATCH.TD72 TD SCH (19:39)
[2022-01-09] MEDS ORDERED: SODIUM CHLORIDE 500 ML IV STA (21:30)
[2022-01-09] MEDS ORDERED: SODIUM CHLORIDE 1,000 ML IV STA (21:37)
[2022-01-09] MEDS ORDERED: ATORVASTATIN CA 40 MG TABLET (FP) ONE (21:55)
[2022-01-09] MEDS: CARVEDILOL 3.125 MG TABLET (FP) GT SCH (22:12)
[2022-01-09] MEDS: ATORVASTATIN CA 40 MG TABLET (FP) GT SCH (22:13)
[2022-01-09] MEDS: FERROUS SO4 300 MG/5 ML ORAL SOLN UNIT DOSE CUPS GT SCH (22:24)
[2022-01-09] MEDS: LACTOBACILLUS ACIDOPHILUS 1 TABLET GT SCH (22:39)
[2022-01-09 23:37] LABS: HEMATOCRIT 22.7 % (35.4-49); HEMOGLOBIN 7.5 GM/dL (11.7-16.9); MCH 28.4 pg (25.7-33.7); MEAN PLT VOLUME 6.1 fl (7.5-11.1); PLATELET COUNT 223 10^3/uL (134-434); RBC 2.63 M/mm3 (4.00-5.60); RDW 16.5 % (11.9-15.9); WHITE BLOOD COUNT 9.3 K/mm3 (4.0-10.0)
[2022-01-10] MEDS: OFLOXACIN 0.3% OTIC SOLUTION 5 ML BOTTLE AD SCH ×3 (00:31→21:53)
[2022-01-10] MEDS: CLINDAMYCIN 900 MG PREMIX IVPB 900 MG/50 ML BAG IVPB SCH ×3 (05:48→19:03)
[2022-01-10] MEDS: NYSTATIN 500,000 UNITS/5 ML SUSPENSION PO SCH ×4 (05:48→21:52)
[2022-01-10] MEDS ORDERED: VANCOMYCIN 1 GM in D5W (PRE-DOCKED) 1,000 MG/250 ML IVPB ONE (06:00)
[2022-01-10] MEDS: LACTOBACILLUS ACIDOPHILUS 1 TABLET GT SCH ×3 (06:08→21:52)
[2022-01-10] MEDS: levETIRAcetam 500 MG/5 ML ORAL SOLUTION (UNIT-DOSE CUPS) GT SCH ×2 (06:40→18:16)
[2022-01-10 07:21] LABS: BASO % 0.4 % (0-2.0); EOS % 4.2 % (0-4.5); HEMATOCRIT 20.5 % (35.4-49); LYMPH % 10.1 % (8-40); MCH 28.6 pg (25.7-33.7); MCHC 33.1 g/dl (32.0-35.9); MEAN CELL VOLUME 86.4 fl (80-96); MEAN PLT VOLUME 6.4 fl (7.5-11.1); MONO % 6.2 % (3.8-10.2); NEUT % 79.1 % (42.8-82.8); PLATELET COUNT 219 10^3/uL (134-434); RBC 2.37 M/mm3 (4.00-5.60); RDW 16.5 % (11.9-15.9); WHITE BLOOD COUNT 9.7 K/mm3 (4.0-10.0)
[2022-01-10 07:48] LABS: HEMOGLOBIN 6.8 GM/dL (11.7-16.9)
[2022-01-10 07:56] LABS: BLOOD UREA NITROGEN 45.3 mg/dL (7-18); CALCIUM 8.6 mg/dL (8.5-10.1)
[2022-01-10 07:57] LABS: ALBUMIN 1.4 g/dl (3.4-5.0); MAGNESIUM 2.3 mg/dL (1.8-2.4)
[2022-01-10 07:59] LABS: CREATININE 2.6 mg/dL (0.55-1.3); PHOSPHOROUS 3.8 mg/dL (2.5-4.9)
[2022-01-10] MEDS ORDERED: AMINO ACIDS/PROTEIN HYDROLYS 30 ML LIQUID.PKT GT SCH (08:00)
[2022-01-10 08:01] LABS: BILIRUBIN,TOTAL 0.5 mg/dL (0.2-1); TOT PROT 6.6 g/dl (6.4-8.2)
[2022-01-10] MEDS ORDERED: MEROPENEM 500 MG in DEXTROSE 5%-WATER 100 ML IVPB SCH (10:00)
[2022-01-10] MEDS ORDERED: ZINC SULFATE 220 MG TABLET GT SCH (10:00)
[2022-01-10] MEDS: MULTIVIT-MINERALS ORAL LIQUID GT SCH (10:57)
[2022-01-10] MEDS: CARVEDILOL 3.125 MG TABLET (FP) GT SCH ×2 (10:58→21:52)
[2022-01-10] MEDS: MEROPENEM 500 MG in DEXTROSE 5%-WATER 100 ML IVPB SCH (12:00)
[2022-01-10] MEDS: ALBUTEROL SO4 2.5/IPRATROPIUM 0.5 INH SOL 3 ML VIAL.NEB. NEB SCH ×2 (13:28→20:15)
[2022-01-10] MEDS ORDERED: DEXTROSE 5%-WATER 100 ML IVPB ONE (14:16)
[2022-01-10] MEDS ORDERED: MEROPENEM 500 MG VIAL (RESTRICTED TO ID) IVPB ONE (14:16)
[2022-01-10] MEDS: LOPERAMIDE HCL 2 MG CAPSULE GT SCH (15:55)
[2022-01-10] MEDS: FERROUS SO4 300 MG/5 ML ORAL SOLN UNIT DOSE CUPS GT SCH ×2 (16:01→23:21)
[2022-01-10] MEDS: ZINC SULFATE 220 MG CAPSULE (FP) GT SCH (16:01)
[2022-01-10] MEDS: AMINO ACIDS/PROTEIN HYDROLYS 30 ML LIQUID.PKT GT SCH (18:16)
[2022-01-10] MEDS: ATORVASTATIN CA 40 MG TABLET (FP) GT SCH (21:52)
[2022-01-10] MEDS: ACETAMINOPHEN 650 MG/20.3 ML ORAL SOLUTION (CUPS) PO PRN (22:47)
[2022-01-10] MEDS: ZINC OXIDE 20% TOPICAL OINTMENT 30 GM TUBE TP SCH (23:21)
[2022-01-11] MEDS: CLINDAMYCIN 900 MG PREMIX IVPB 900 MG/50 ML BAG IVPB SCH ×3 (02:48→18:09)
[2022-01-11] MEDS: NYSTATIN 500,000 UNITS/5 ML SUSPENSION PO SCH ×4 (05:55→22:16)
[2022-01-11] MEDS: levETIRAcetam 500 MG/5 ML ORAL SOLUTION (UNIT-DOSE CUPS) GT SCH (06:52)
[2022-01-11] MEDS: LACTOBACILLUS ACIDOPHILUS 1 TABLET GT SCH ×3 (06:52→22:16)
[2022-01-11 07:47] LABS: HEMATOCRIT 25.9 % (35.4-49); HEMOGLOBIN 8.6 GM/dL (11.7-16.9); MCH 28.8 pg (25.7-33.7); MCHC 33.2 g/dl (32.0-35.9); MEAN CELL VOLUME 86.7 fl (80-96); MEAN PLT VOLUME 6.5 fl (7.5-11.1); PLATELET COUNT 295 10^3/uL (134-434); RBC 2.98 M/mm3 (4.00-5.60); RDW 16.3 % (11.9-15.9); WHITE BLOOD COUNT 10.2 K/mm3 (4.0-10.0)
[2022-01-11 07:51] LABS: CALCIUM 8.8 mg/dL (8.5-10.1)
[2022-01-11 07:52] LABS: ALBUMIN 1.6 g/dl (3.4-5.0); BLOOD UREA NITROGEN 28.2 mg/dL (7-18)
[2022-01-11 07:57] LABS: BILIRUBIN,TOTAL 0.6 mg/dL (0.2-1); CREATININE 2.1 mg/dL (0.55-1.3); TOT PROT 7.5 g/dl (6.4-8.2)
[2022-01-11] MEDS ORDERED: MEROPENEM 500 MG VIAL (RESTRICTED TO ID) IVPB ONE (09:20)
[2022-01-11] MEDS ORDERED: DEXTROSE 5%-WATER 100 ML IVPB ONE (09:20)
[2022-01-11] MEDS: CARVEDILOL 3.125 MG TABLET (FP) GT SCH ×2 (09:24→22:16)
[2022-01-11] MEDS: MEROPENEM 500 MG in DEXTROSE 5%-WATER 100 ML IVPB SCH (09:24)
[2022-01-11] MEDS: AMINO ACIDS/PROTEIN HYDROLYS 30 ML LIQUID.PKT GT SCH ×2 (09:26→18:04)
[2022-01-11] MEDS: ZINC SULFATE 220 MG CAPSULE (FP) GT SCH (09:27)
[2022-01-11] MEDS: MIDODRINE HCL 5 MG TABLET PEG SCH ×3 (09:37→18:04)
[2022-01-11] MEDS: ALBUTEROL SO4 2.5/IPRATROPIUM 0.5 INH SOL 3 ML VIAL.NEB. NEB SCH ×4 (09:52→20:25)
[2022-01-11] MEDS ORDERED: SODIUM CHLORIDE 500 ML IV ONE ×2 (10:00→20:00)
[2022-01-11] MEDS: OFLOXACIN 0.3% OTIC SOLUTION 5 ML BOTTLE AD SCH ×2 (10:00→22:15)
[2022-01-11] MEDS: MULTIVIT-MINERALS ORAL LIQUID GT SCH (12:53)
[2022-01-11] MEDS: FERROUS SO4 300 MG/5 ML ORAL SOLN UNIT DOSE CUPS GT SCH ×2 (12:53→22:16)
[2022-01-11] MEDS: ZINC OXIDE 20% TOPICAL OINTMENT 30 GM TUBE TP SCH (12:54)
[2022-01-11] MEDS ORDERED: SODIUM CHLORIDE 1,000 ML IV SCH (13:15)
[2022-01-11] MEDS: LOPERAMIDE HCL 2 MG CAPSULE GT SCH (15:44)
[2022-01-11] MEDS ORDERED: SODIUM CHLORIDE 250 ML IV ONE ×3 (19:30→20:30)
[2022-01-11] MEDS: ATORVASTATIN CA 40 MG TABLET (FP) GT SCH (22:15)
[2022-01-12] MEDS: CLINDAMYCIN 900 MG PREMIX IVPB 900 MG/50 ML BAG IVPB SCH ×3 (03:00→17:45)
[2022-01-12] MEDS: levETIRAcetam 500 MG/5 ML ORAL SOLUTION (UNIT-DOSE CUPS) GT SCH (05:12)
[2022-01-12] MEDS: LACTOBACILLUS ACIDOPHILUS 1 TABLET GT SCH ×3 (05:12→21:03)
[2022-01-12] MEDS: NYSTATIN 500,000 UNITS/5 ML SUSPENSION PO SCH ×4 (05:12→22:40)
[2022-01-12 07:30] LABS: BASO % 0.7 % (0-2.0); EOS % 3.2 % (0-4.5); HEMATOCRIT 23.1 % (35.4-49); HEMOGLOBIN 7.6 GM/dL (11.7-16.9); MCH 28.6 pg (25.7-33.7); MCHC 32.7 g/dl (32.0-35.9); MEAN CELL VOLUME 87.6 fl (80-96); MEAN PLT VOLUME 6.7 fl (7.5-11.1); MONO % 8.7 % (3.8-10.2); NEUT % 70.4 % (42.8-82.8); PLATELET COUNT 331 10^3/uL (134-434); RBC 2.64 M/mm3 (4.00-5.60); RDW 16.3 % (11.9-15.9); WHITE BLOOD COUNT 8.9 K/mm3 (4.0-10.0)
[2022-01-12 07:58] LABS: BLOOD UREA NITROGEN 34.7 mg/dL (7-18); CALCIUM 8.2 mg/dL (8.5-10.1)
[2022-01-12 07:59] LABS: ALBUMIN 1.4 g/dl (3.4-5.0)
[2022-01-12 08:02] LABS: CREATININE 2.7 mg/dL (0.55-1.3)
[2022-01-12 08:03] LABS: BILIRUBIN,TOTAL 0.5 mg/dL (0.2-1); TOT PROT 6.7 g/dl (6.4-8.2)
[2022-01-12] MEDS: ALBUTEROL SO4 2.5/IPRATROPIUM 0.5 INH SOL 3 ML VIAL.NEB. NEB SCH ×3 (08:41→16:13)
[2022-01-12] MEDS ORDERED: MEROPENEM 500 MG VIAL (RESTRICTED TO ID) IVPB ONE (09:42)
[2022-01-12] MEDS ORDERED: DEXTROSE 5%-WATER 100 ML IVPB ONE (09:43)
[2022-01-12] MEDS: MEROPENEM 500 MG in DEXTROSE 5%-WATER 100 ML IVPB SCH (09:46)
[2022-01-12] MEDS: AMINO ACIDS/PROTEIN HYDROLYS 30 ML LIQUID.PKT GT SCH ×2 (09:46→16:59)
[2022-01-12] MEDS: MIDODRINE HCL 5 MG TABLET PEG SCH ×3 (09:47→20:25)
[2022-01-12] MEDS: CARVEDILOL 3.125 MG TABLET (FP) GT SCH ×2 (09:47→23:30)
[2022-01-12] MEDS: ZINC SULFATE 220 MG CAPSULE (FP) GT SCH (09:47)
[2022-01-12] MEDS: MULTIVIT-MINERALS ORAL LIQUID GT SCH (09:48)
[2022-01-12] MEDS: LOPERAMIDE HCL 2 MG CAPSULE GT SCH (09:48)
[2022-01-12] MEDS: OFLOXACIN 0.3% OTIC SOLUTION 5 ML BOTTLE AD SCH ×2 (09:48→21:03)
[2022-01-12] MEDS: FERROUS SO4 300 MG/5 ML ORAL SOLN UNIT DOSE CUPS GT SCH ×2 (09:48→21:03)
[2022-01-12] MEDS: ZINC OXIDE 20% TOPICAL OINTMENT 30 GM TUBE TP SCH (09:49)
[2022-01-12] MEDS ORDERED: SODIUM CHLORIDE 500 ML IV STA (11:16)
[2022-01-12] MEDS: fentaNYL 75mcg/hr PATCH.TD72 TD SCH (16:57)
[2022-01-12] MEDS: FENTANYL PATCH WASTE TD PRN (17:00)
[2022-01-12] MEDS: ATORVASTATIN CA 40 MG TABLET (FP) GT SCH (21:03)
[2022-01-13] MEDS: CLINDAMYCIN 900 MG PREMIX IVPB 900 MG/50 ML BAG IVPB SCH ×2 (02:28→10:07)
[2022-01-13] MEDS: MIDODRINE HCL 5 MG TABLET PEG SCH ×3 (02:36→22:02)
[2022-01-13] MEDS: LACTOBACILLUS ACIDOPHILUS 1 TABLET GT SCH ×3 (05:23→22:02)
[2022-01-13] MEDS: levETIRAcetam 500 MG/5 ML ORAL SOLUTION (UNIT-DOSE CUPS) GT SCH ×2 (05:23→17:34)
[2022-01-13] MEDS: NYSTATIN 500,000 UNITS/5 ML SUSPENSION PO SCH ×4 (05:23→22:22)
[2022-01-13] MEDS: ALBUTEROL SO4 2.5/IPRATROPIUM 0.5 INH SOL 3 ML VIAL.NEB. NEB SCH ×4 (07:35→20:17)
[2022-01-13 07:49] LABS: CALCIUM 8.4 mg/dL (8.5-10.1)
[2022-01-13 07:50] LABS: BLOOD UREA NITROGEN 46.6 mg/dL (7-18)
[2022-01-13 07:53] LABS: CREATININE 3.5 mg/dL (0.55-1.3)
[2022-01-13] MEDS ORDERED: MEROPENEM 500 MG VIAL (RESTRICTED TO ID) IVPB ONE (08:41)
[2022-01-13] MEDS ORDERED: DEXTROSE 5%-WATER 100 ML IVPB ONE (08:41)
[2022-01-13] MEDS: MULTIVIT-MINERALS ORAL LIQUID GT SCH (10:06)
[2022-01-13] MEDS: AMINO ACIDS/PROTEIN HYDROLYS 30 ML LIQUID.PKT GT SCH ×2 (10:06→16:30)
[2022-01-13] MEDS: FERROUS SO4 300 MG/5 ML ORAL SOLN UNIT DOSE CUPS GT SCH ×2 (10:07→22:21)
[2022-01-13] MEDS: OFLOXACIN 0.3% OTIC SOLUTION 5 ML BOTTLE AD SCH ×2 (10:07→22:23)
[2022-01-13] MEDS: MEROPENEM 500 MG in DEXTROSE 5%-WATER 100 ML IVPB SCH (10:07)
[2022-01-13] MEDS: CARVEDILOL 3.125 MG TABLET (FP) GT SCH ×2 (10:07→22:02)
[2022-01-13] MEDS: ZINC SULFATE 220 MG CAPSULE (FP) GT SCH (10:08)
[2022-01-13] MEDS: PANTOPRAZOLE SODIUM 40 MG VIAL IVPUSH SCH (10:08)
[2022-01-13] MEDS: ZINC OXIDE 20% TOPICAL OINTMENT 30 GM TUBE TP SCH (10:16)
[2022-01-13] MEDS ORDERED: EPOETIN ALFA-EPBX 20,000 UNIT/ML VIAL IVPUSH ONE (10:17)
[2022-01-13] MEDS: ACETAMINOPHEN 650 MG/20.3 ML ORAL SOLUTION (CUPS) PO PRN (16:31)
[2022-01-13] MEDS: ATORVASTATIN CA 40 MG TABLET (FP) GT SCH (22:22)
[2022-01-14] MEDS: MIDODRINE HCL 5 MG TABLET PEG SCH ×3 (03:30→20:30)
[2022-01-14] MEDS: NYSTATIN 500,000 UNITS/5 ML SUSPENSION PO SCH ×4 (04:15→21:50)
[2022-01-14] MEDS: LACTOBACILLUS ACIDOPHILUS 1 TABLET GT SCH ×3 (05:35→21:49)
[2022-01-14] MEDS: levETIRAcetam 500 MG/5 ML ORAL SOLUTION (UNIT-DOSE CUPS) GT SCH (05:35)
[2022-01-14] MEDS: ALBUTEROL SO4 2.5/IPRATROPIUM 0.5 INH SOL 3 ML VIAL.NEB. NEB SCH ×4 (08:37→20:14)
[2022-01-14] MEDS ORDERED: MEROPENEM 500 MG VIAL (RESTRICTED TO ID) IVPB ONE (09:43)
[2022-01-14] MEDS ORDERED: DEXTROSE 5%-WATER 100 ML IVPB ONE (09:43)
[2022-01-14] MEDS: AMINO ACIDS/PROTEIN HYDROLYS 30 ML LIQUID.PKT GT SCH ×2 (09:49→16:41)
[2022-01-14] MEDS: MULTIVIT-MINERALS ORAL LIQUID GT SCH (09:49)
[2022-01-14] MEDS: FERROUS SO4 300 MG/5 ML ORAL SOLN UNIT DOSE CUPS GT SCH ×2 (09:49→21:49)
[2022-01-14] MEDS: PANTOPRAZOLE SODIUM 40 MG VIAL IVPUSH SCH (09:49)
[2022-01-14] MEDS: ZINC SULFATE 220 MG CAPSULE (FP) GT SCH (09:49)
[2022-01-14] MEDS: MEROPENEM 500 MG in DEXTROSE 5%-WATER 100 ML IVPB SCH (09:49)
[2022-01-14] MEDS: ZINC OXIDE 20% TOPICAL OINTMENT 30 GM TUBE TP SCH (09:50)
[2022-01-14] MEDS: CARVEDILOL 3.125 MG TABLET (FP) GT SCH ×2 (09:50→21:49)
[2022-01-14] MEDS: OFLOXACIN 0.3% OTIC SOLUTION 5 ML BOTTLE AD SCH ×2 (09:51→21:49)
[2022-01-14] MEDS: ATORVASTATIN CA 40 MG TABLET (FP) GT SCH (21:50)
[2022-01-15] MEDS: MIDODRINE HCL 5 MG TABLET PEG SCH ×3 (04:00→20:15)
[2022-01-15] MEDS: LACTOBACILLUS ACIDOPHILUS 1 TABLET GT SCH ×3 (05:02→21:15)
[2022-01-15] MEDS: levETIRAcetam 500 MG/5 ML ORAL SOLUTION (UNIT-DOSE CUPS) GT SCH ×2 (05:02→17:53)
[2022-01-15] MEDS: NYSTATIN 500,000 UNITS/5 ML SUSPENSION PO SCH ×4 (05:02→21:17)
[2022-01-15 07:00] LABS: HEMATOCRIT 26.3 % (35.4-49); HEMOGLOBIN 8.5 GM/dL (11.7-16.9); MCHC 32.2 g/dl (32.0-35.9); MEAN CELL VOLUME 90.1 fl (80-96); MEAN PLT VOLUME 6.1 fl (7.5-11.1); PLATELET COUNT 446 10^3/uL (134-434); RBC 2.91 M/mm3 (4.00-5.60); RDW 16.3 % (11.9-15.9); WHITE BLOOD COUNT 9.5 K/mm3 (4.0-10.0)
[2022-01-15] MEDS ORDERED: EPOETIN ALFA-EPBX 20,000 UNIT/ML VIAL SQ ONE (07:00)
[2022-01-15] MEDS ORDERED: SODIUM CHLORIDE 250 ML IV PRN (07:00)
[2022-01-15 07:06] LABS: CALCIUM 8.8 mg/dL (8.5-10.1)
[2022-01-15 07:07] LABS: BLOOD UREA NITROGEN 39.7 mg/dL (7-18)
[2022-01-15 07:09] LABS: CREATININE 3.2 mg/dL (0.55-1.3)
[2022-01-15 07:12] LABS: BILIRUBIN,TOTAL 0.4 mg/dL (0.2-1); TOT PROT 7.3 g/dl (6.4-8.2)
[2022-01-15 07:14] LABS: ALBUMIN 1.8 g/dl (3.4-5.0)
[2022-01-15] MEDS: ALBUTEROL SO4 2.5/IPRATROPIUM 0.5 INH SOL 3 ML VIAL.NEB. NEB SCH ×4 (08:18→19:52)
[2022-01-15] MEDS ORDERED: MEROPENEM 500 MG VIAL (RESTRICTED TO ID) IVPB ONE (09:07)
[2022-01-15] MEDS ORDERED: DEXTROSE 5%-WATER 100 ML IVPB ONE (09:07)
[2022-01-15] MEDS: OFLOXACIN 0.3% OTIC SOLUTION 5 ML BOTTLE AD SCH ×2 (10:00→21:16)
[2022-01-15] MEDS: CARVEDILOL 3.125 MG TABLET (FP) GT SCH ×2 (10:00→21:15)
[2022-01-15] MEDS: MEROPENEM 500 MG in DEXTROSE 5%-WATER 100 ML IVPB SCH (10:33)
[2022-01-15] MEDS: MULTIVIT-MINERALS ORAL LIQUID GT SCH (10:34)
[2022-01-15] MEDS: AMINO ACIDS/PROTEIN HYDROLYS 30 ML LIQUID.PKT GT SCH ×2 (10:34→17:53)
[2022-01-15] MEDS: ZINC SULFATE 220 MG CAPSULE (FP) GT SCH (10:34)
[2022-01-15] MEDS: ZINC OXIDE 20% TOPICAL OINTMENT 30 GM TUBE TP SCH (10:34)
[2022-01-15] MEDS: FERROUS SO4 300 MG/5 ML ORAL SOLN UNIT DOSE CUPS GT SCH ×2 (10:34→21:15)
[2022-01-15] MEDS: PANTOPRAZOLE SODIUM 40 MG VIAL IVPUSH SCH (10:35)
[2022-01-15] MEDS: fentaNYL 75mcg/hr PATCH.TD72 TD SCH (15:27)
[2022-01-15] MEDS: FENTANYL PATCH WASTE TD PRN (15:38)
[2022-01-15] MEDS: ACETAMINOPHEN 650 MG/20.3 ML ORAL SOLUTION (CUPS) PO PRN ×2 (17:53→21:29)
[2022-01-15] MEDS: ATORVASTATIN CA 40 MG TABLET (FP) GT SCH (21:15)
[2022-01-16] MEDS: MIDODRINE HCL 5 MG TABLET PEG SCH ×3 (04:30→20:05)
[2022-01-16] MEDS: NYSTATIN 500,000 UNITS/5 ML SUSPENSION PO SCH ×4 (05:08→21:25)
[2022-01-16] MEDS: ACETAMINOPHEN 650 MG/20.3 ML ORAL SOLUTION (CUPS) PO PRN (05:08)
[2022-01-16] MEDS: LACTOBACILLUS ACIDOPHILUS 1 TABLET GT SCH ×3 (05:08→21:25)
[2022-01-16] MEDS: levETIRAcetam 500 MG/5 ML ORAL SOLUTION (UNIT-DOSE CUPS) GT SCH (05:09)
[2022-01-16] MEDS: ALBUTEROL SO4 2.5/IPRATROPIUM 0.5 INH SOL 3 ML VIAL.NEB. NEB SCH ×4 (07:40→20:15)
[2022-01-16] MEDS: AMINO ACIDS/PROTEIN HYDROLYS 30 ML LIQUID.PKT GT SCH ×2 (08:00→17:29)
[2022-01-16] MEDS ORDERED: SODIUM CHLORIDE 250 ML IV PRN (08:52)
[2022-01-16] MEDS ORDERED: MEROPENEM 500 MG VIAL (RESTRICTED TO ID) IVPB ONE (09:30)
[2022-01-16] MEDS ORDERED: DEXTROSE 5%-WATER 100 ML IVPB ONE (09:30)
[2022-01-16] MEDS: CARVEDILOL 3.125 MG TABLET (FP) GT SCH ×2 (10:09→21:25)
[2022-01-16] MEDS: MEROPENEM 500 MG in DEXTROSE 5%-WATER 100 ML IVPB SCH (10:34)
[2022-01-16] MEDS: PANTOPRAZOLE SODIUM 40 MG VIAL IVPUSH SCH (10:34)
[2022-01-16] MEDS: MULTIVIT-MINERALS ORAL LIQUID GT SCH (10:35)
[2022-01-16] MEDS: ZINC SULFATE 220 MG CAPSULE (FP) GT SCH (10:35)
[2022-01-16] MEDS: ZINC OXIDE 20% TOPICAL OINTMENT 30 GM TUBE TP SCH (10:35)
[2022-01-16] MEDS: FERROUS SO4 300 MG/5 ML ORAL SOLN UNIT DOSE CUPS GT SCH ×2 (10:35→21:25)
[2022-01-16] MEDS: OFLOXACIN 0.3% OTIC SOLUTION 5 ML BOTTLE AD SCH (12:08)
[2022-01-16] MEDS: BANATROL PLUS POWDER PACKET GT SCH ×2 (13:39→21:25)
[2022-01-16] MEDS: ATORVASTATIN CA 40 MG TABLET (FP) GT SCH (21:25)
[2022-01-16] MEDS ORDERED: OFLOXACIN 0.3% OTIC SOLUTION 5 ML BOTTLE AD SCH (22:00)
[2022-01-17] MEDS: MIDODRINE HCL 5 MG TABLET PEG SCH ×3 (03:40→19:33)
[2022-01-17] MEDS: NYSTATIN 500,000 UNITS/5 ML SUSPENSION PO SCH ×4 (05:00→21:36)
[2022-01-17] MEDS: BANATROL PLUS POWDER PACKET GT SCH ×3 (05:56→21:36)
[2022-01-17] MEDS: LACTOBACILLUS ACIDOPHILUS 1 TABLET GT SCH ×3 (05:56→21:36)
[2022-01-17] MEDS: levETIRAcetam 500 MG/5 ML ORAL SOLUTION (UNIT-DOSE CUPS) GT SCH ×2 (05:57→17:51)
[2022-01-17 07:13] LABS: BASO % 0.5 % (0-2.0); EOS % 5.4 % (0-4.5); HEMATOCRIT 28.9 % (35.4-49); HEMOGLOBIN 9.1 GM/dL (11.7-16.9); LYMPH % 18.7 % (8-40); MCH 28.4 pg (25.7-33.7); MCHC 31.4 g/dl (32.0-35.9); MEAN CELL VOLUME 90.4 fl (80-96); MEAN PLT VOLUME 6.5 fl (7.5-11.1); MONO % 9.3 % (3.8-10.2); NEUT % 66.1 % (42.8-82.8); PLATELET COUNT 529 10^3/uL (134-434); RDW 16.8 % (11.9-15.9); WHITE BLOOD COUNT 11.3 K/mm3 (4.0-10.0)
[2022-01-17] MEDS: ALBUTEROL SO4 2.5/IPRATROPIUM 0.5 INH SOL 3 ML VIAL.NEB. NEB SCH ×4 (07:59→20:22)
[2022-01-17] MEDS: AMINO ACIDS/PROTEIN HYDROLYS 30 ML LIQUID.PKT GT SCH ×2 (08:00→17:51)
[2022-01-17] MEDS ORDERED: FENTANYL PATCH WASTE TD PRN (08:29)
[2022-01-17] MEDS ORDERED: fentaNYL 75mcg/hr PATCH.TD72 TD SCH (08:30)
[2022-01-17] MEDS ORDERED: EPOETIN ALFA-EPBX 20,000 UNIT/ML VIAL IVPUSH ONE (09:30)
[2022-01-17] MEDS ORDERED: MEROPENEM 500 MG in DEXTROSE 5%-WATER 100 ML IVPB SCH (10:00)
[2022-01-17] MEDS ORDERED: VANCOMYCIN/WATER FOR INJ (PEG) 1,000 MG/200 ML BAG IVPB ONE (10:00)
[2022-01-17] MEDS ORDERED: MEROPENEM 500 MG VIAL (RESTRICTED TO ID) IVPB ONE (10:40)
[2022-01-17] MEDS ORDERED: DEXTROSE 5%-WATER 100 ML IVPB ONE (10:40)
[2022-01-17] MEDS: CARVEDILOL 3.125 MG TABLET (FP) GT SCH ×2 (10:45→21:36)
[2022-01-17] MEDS: ZINC SULFATE 220 MG CAPSULE (FP) GT SCH (10:49)
[2022-01-17] MEDS: FERROUS SO4 300 MG/5 ML ORAL SOLN UNIT DOSE CUPS GT SCH ×2 (10:49→21:57)
[2022-01-17] MEDS: PANTOPRAZOLE SODIUM 40 MG VIAL IVPUSH SCH (10:49)
[2022-01-17] MEDS: MULTIVIT-MINERALS ORAL LIQUID GT SCH (10:50)
[2022-01-17] MEDS: ACETAMINOPHEN 650 MG/20.3 ML ORAL SOLUTION (CUPS) PO PRN (10:50)
[2022-01-17] MEDS: CLINDAMYCIN 600MG PREMIX IVPB 600 MG/50 ML BAG IVPB SCH ×2 (10:50→17:51)
[2022-01-17] MEDS: ZINC OXIDE 20% TOPICAL OINTMENT 30 GM TUBE TP SCH (10:51)
[2022-01-17] MEDS: ATORVASTATIN CA 40 MG TABLET (FP) GT SCH (21:36)
[2022-01-18] MEDS: MIDODRINE HCL 5 MG TABLET PEG SCH ×3 (02:00→19:23)
[2022-01-18] MEDS: CLINDAMYCIN 600MG PREMIX IVPB 600 MG/50 ML BAG IVPB SCH (02:28)
[2022-01-18] MEDS ORDERED: INSULIN (NOVOLOG) ASPART 100 UNITS/ML 10ML VIAL ONE (03:02)
[2022-01-18] MEDS: BANATROL PLUS POWDER PACKET GT SCH ×3 (05:08→22:10)
[2022-01-18] MEDS: NYSTATIN 500,000 UNITS/5 ML SUSPENSION PO SCH ×4 (05:08→22:09)
[2022-01-18] MEDS: LACTOBACILLUS ACIDOPHILUS 1 TABLET GT SCH ×3 (05:08→22:09)
[2022-01-18] MEDS: levETIRAcetam 500 MG/5 ML ORAL SOLUTION (UNIT-DOSE CUPS) GT SCH (05:44)
[2022-01-18] MEDS: ALBUTEROL SO4 2.5/IPRATROPIUM 0.5 INH SOL 3 ML VIAL.NEB. NEB SCH ×4 (07:36→20:13)
[2022-01-18] MEDS ORDERED: EPOETIN ALFA-EPBX 20,000 UNIT/ML VIAL IVPUSH ONE (08:30)
[2022-01-18] MEDS: AMINO ACIDS/PROTEIN HYDROLYS 30 ML LIQUID.PKT GT SCH ×2 (09:38→18:20)
[2022-01-18] MEDS: MULTIVIT-MINERALS ORAL LIQUID GT SCH (09:38)
[2022-01-18] MEDS: PANTOPRAZOLE SODIUM 40 MG VIAL IVPUSH SCH (09:38)
[2022-01-18] MEDS: CLINDAMYCIN 900 MG PREMIX IVPB 900 MG/50 ML BAG IVPB SCH ×2 (09:39→18:20)
[2022-01-18] MEDS: ZINC SULFATE 220 MG CAPSULE (FP) GT SCH (09:39)
[2022-01-18] MEDS: CARVEDILOL 3.125 MG TABLET (FP) GT SCH ×2 (09:40→22:10)
[2022-01-18] MEDS: FERROUS SO4 300 MG/5 ML ORAL SOLN UNIT DOSE CUPS GT SCH ×2 (09:40→22:09)
[2022-01-18] MEDS: ZINC OXIDE 20% TOPICAL OINTMENT 30 GM TUBE TP SCH (09:41)
[2022-01-18] MEDS ORDERED: DEXTROSE 5%-WATER 100 ML IVPB ONE (11:50)
[2022-01-18] MEDS ORDERED: MEROPENEM 500 MG VIAL (RESTRICTED TO ID) IVPB ONE (11:50)
[2022-01-18] MEDS: MEROPENEM 500 MG in DEXTROSE 5%-WATER 100 ML IVPB SCH (11:57)
[2022-01-18] MEDS: fentaNYL 75mcg/hr PATCH.TD72 TD SCH (18:17)
[2022-01-18] MEDS ORDERED: SODIUM CHLORIDE 500 ML IV STA (21:37)
[2022-01-18] MEDS: ATORVASTATIN CA 40 MG TABLET (FP) GT SCH (22:09)
[2022-01-18 22:33] LABS: BASO % 0.7 % (0-2.0); HEMATOCRIT 26.1 % (35.4-49); HEMOGLOBIN 8.2 GM/dL (11.7-16.9); LYMPH % 16.4 % (8-40); MCH 28.2 pg (25.7-33.7); MCHC 31.6 g/dl (32.0-35.9); MEAN CELL VOLUME 89.3 fl (80-96); MEAN PLT VOLUME 6.3 fl (7.5-11.1); MONO % 8.5 % (3.8-10.2); NEUT % 69.4 % (42.8-82.8); PLATELET COUNT 445 10^3/uL (134-434); RBC 2.92 M/mm3 (4.00-5.60)
[2022-01-18 23:05] LABS: BLOOD UREA NITROGEN 33.5 mg/dL (7-18); CALCIUM 9.2 mg/dL (8.5-10.1); MAGNESIUM 1.9 mg/dL (1.8-2.4)
[2022-01-18 23:09] LABS: CREATININE 3.1 mg/dL (0.55-1.3)
[2022-01-19] MEDS: CLINDAMYCIN 900 MG PREMIX IVPB 900 MG/50 ML BAG IVPB SCH ×3 (01:18→18:51)
[2022-01-19] MEDS: MIDODRINE HCL 5 MG TABLET PEG SCH ×4 (01:30→20:22)
[2022-01-19] MEDS ORDERED: POTASSIUM CHLORIDE ORAL LIQUID 20 MEQ/15 ML PEG ONE (01:53)
[2022-01-19] MEDS ORDERED: SODIUM CHLORIDE 250 ML IV STA (01:56)
[2022-01-19] MEDS: BANATROL PLUS POWDER PACKET GT SCH ×4 (05:19→22:17)
[2022-01-19] MEDS: NYSTATIN 500,000 UNITS/5 ML SUSPENSION PO SCH ×4 (05:19→22:18)
[2022-01-19] MEDS: LACTOBACILLUS ACIDOPHILUS 1 TABLET GT SCH ×3 (05:19→22:16)
[2022-01-19] MEDS: levETIRAcetam 500 MG/5 ML ORAL SOLUTION (UNIT-DOSE CUPS) GT SCH (06:11)
[2022-01-19] MEDS: ALBUTEROL SO4 2.5/IPRATROPIUM 0.5 INH SOL 3 ML VIAL.NEB. NEB SCH ×3 (07:30→20:25)
[2022-01-19] MEDS ORDERED: DEXTROSE 5%-WATER 100 ML IVPB ONE (08:35)
[2022-01-19] MEDS ORDERED: MEROPENEM 500 MG VIAL (RESTRICTED TO ID) IVPB ONE (08:35)
[2022-01-19] MEDS: AMINO ACIDS/PROTEIN HYDROLYS 30 ML LIQUID.PKT GT SCH ×2 (08:52→18:30)
[2022-01-19] MEDS: MEROPENEM 500 MG in DEXTROSE 5%-WATER 100 ML IVPB SCH (09:14)
[2022-01-19] MEDS: CARVEDILOL 3.125 MG TABLET (FP) GT SCH ×2 (09:20→22:17)
[2022-01-19] MEDS: FERROUS SO4 300 MG/5 ML ORAL SOLN UNIT DOSE CUPS GT SCH ×2 (09:20→22:17)
[2022-01-19] MEDS: ZINC SULFATE 220 MG CAPSULE (FP) GT SCH (09:20)
[2022-01-19] MEDS: ZINC OXIDE 20% TOPICAL OINTMENT 30 GM TUBE TP SCH (09:24)
[2022-01-19] MEDS: PANTOPRAZOLE SODIUM 40 MG VIAL IVPUSH SCH (09:24)
[2022-01-19] MEDS: MULTIVIT-MINERALS ORAL LIQUID GT SCH (09:25)
[2022-01-19] MEDS ORDERED: SODIUM CHLORIDE 250 ML IV PRN (11:11)
[2022-01-19] MEDS: ATORVASTATIN CA 40 MG TABLET (FP) GT SCH (22:17)
[2022-01-20] MEDS: CLINDAMYCIN 900 MG PREMIX IVPB 900 MG/50 ML BAG IVPB SCH ×3 (02:08→18:02)
[2022-01-20] MEDS: MIDODRINE HCL 5 MG TABLET PEG SCH ×3 (04:29→19:00)
[2022-01-20] MEDS: NYSTATIN 500,000 UNITS/5 ML SUSPENSION PO SCH ×4 (04:29→22:10)
[2022-01-20] MEDS ORDERED: INSULIN (NOVOLOG) ASPART 100 UNITS/ML 10ML VIAL ONE (05:12)
[2022-01-20] MEDS: LACTOBACILLUS ACIDOPHILUS 1 TABLET GT SCH ×3 (05:13→22:10)
[2022-01-20] MEDS: BANATROL PLUS POWDER PACKET GT SCH ×3 (05:13→22:10)
[2022-01-20] MEDS: levETIRAcetam 500 MG/5 ML ORAL SOLUTION (UNIT-DOSE CUPS) GT SCH ×2 (07:29→18:02)
[2022-01-20] MEDS: ALBUTEROL SO4 2.5/IPRATROPIUM 0.5 INH SOL 3 ML VIAL.NEB. NEB SCH ×5 (07:50→22:28)
[2022-01-20 07:52] LABS: HEMOGLOBIN 8.1 GM/dL (11.7-16.9); MCH 28.8 pg (25.7-33.7); MCHC 32.5 g/dl (32.0-35.9); MEAN CELL VOLUME 88.8 fl (80-96); MEAN PLT VOLUME 6.6 fl (7.5-11.1); PLATELET COUNT 425 10^3/uL (134-434); RBC 2.82 M/mm3 (4.00-5.60); RDW 17.1 % (11.9-15.9); WHITE BLOOD COUNT 10.5 K/mm3 (4.0-10.0)
[2022-01-20 08:05] LABS: ALBUMIN 1.7 g/dl (3.4-5.0)
[2022-01-20 08:07] LABS: BLOOD UREA NITROGEN 48.7 mg/dL (7-18)
[2022-01-20 08:09] LABS: BILIRUBIN,TOTAL 0.5 mg/dL (0.2-1); CALCIUM 8.9 mg/dL (8.5-10.1)
[2022-01-20 08:10] LABS: CREATININE 3.9 mg/dL (0.55-1.3)
[2022-01-20] MEDS ORDERED: MEROPENEM 500 MG VIAL (RESTRICTED TO ID) IVPB ONE (08:53)
[2022-01-20] MEDS ORDERED: DEXTROSE 5%-WATER 100 ML IVPB ONE (08:53)
[2022-01-20 08:54] LABS: HEMATOCRIT 25.3 % (35.4-49); HEMOGLOBIN 8.2 GM/dL (11.7-16.9); MCH 28.7 pg (25.7-33.7); MCHC 32.4 g/dl (32.0-35.9); MEAN CELL VOLUME 88.5 fl (80-96); MEAN PLT VOLUME 6.4 fl (7.5-11.1); PLATELET COUNT 422 10^3/uL (134-434); RBC 2.86 M/mm3 (4.00-5.60); RDW 17.3 % (11.9-15.9); WHITE BLOOD COUNT 10.7 K/mm3 (4.0-10.0)
[2022-01-20 09:02] LABS: BLOOD UREA NITROGEN 48.8 mg/dL (7-18); CALCIUM 8.6 mg/dL (8.5-10.1)
[2022-01-20 09:05] LABS: CREATININE 3.9 mg/dL (0.55-1.3)
[2022-01-20 09:36] LABS: ANISOCYTOSIS 1+; MACROCYTOSIS 0
[2022-01-20] MEDS: ZINC SULFATE 220 MG CAPSULE (FP) GT SCH (09:46)
[2022-01-20] MEDS: AMINO ACIDS/PROTEIN HYDROLYS 30 ML LIQUID.PKT GT SCH ×2 (09:46→18:02)
[2022-01-20] MEDS: MULTIVIT-MINERALS ORAL LIQUID GT SCH (09:47)
[2022-01-20] MEDS: PANTOPRAZOLE SODIUM 40 MG VIAL IVPUSH SCH (09:48)
[2022-01-20] MEDS: MEROPENEM 500 MG in DEXTROSE 5%-WATER 100 ML IVPB SCH (09:48)
[2022-01-20] MEDS: ZINC OXIDE 20% TOPICAL OINTMENT 30 GM TUBE TP SCH (09:48)
[2022-01-20] MEDS: FERROUS SO4 300 MG/5 ML ORAL SOLN UNIT DOSE CUPS GT SCH ×2 (09:48→22:10)
[2022-01-20] MEDS: CARVEDILOL 3.125 MG TABLET (FP) GT SCH ×2 (10:12→22:10)
[2022-01-20] MEDS ORDERED: EPOETIN ALFA-EPBX 20,000 UNIT/ML VIAL IVPUSH ONE (11:45)
[2022-01-20] MEDS: ALBUMIN HUMAN 25% 12.5 GM/50 ML VIAL IV SCH ×4 (12:49→12:54)
[2022-01-20] MEDS: ACETAMINOPHEN 650 MG/20.3 ML ORAL SOLUTION (CUPS) NGT PRN (22:09)
[2022-01-20] MEDS: ATORVASTATIN CA 40 MG TABLET (FP) GT SCH (22:10)
[2022-01-21] MEDS: CLINDAMYCIN 900 MG PREMIX IVPB 900 MG/50 ML BAG IVPB SCH ×3 (02:05→18:52)
[2022-01-21] MEDS: MIDODRINE HCL 5 MG TABLET PEG SCH ×3 (04:16→21:25)
[2022-01-21] MEDS: NYSTATIN 500,000 UNITS/5 ML SUSPENSION PO SCH ×4 (04:58→21:25)
[2022-01-21] MEDS: levETIRAcetam 500 MG/5 ML ORAL SOLUTION (UNIT-DOSE CUPS) GT SCH (05:00)
[2022-01-21] MEDS: LACTOBACILLUS ACIDOPHILUS 1 TABLET GT SCH ×3 (05:01→21:25)
[2022-01-21] MEDS: BANATROL PLUS POWDER PACKET GT SCH ×3 (05:01→21:25)
[2022-01-21] MEDS: ALBUTEROL SO4 2.5/IPRATROPIUM 0.5 INH SOL 3 ML VIAL.NEB. NEB SCH ×4 (09:30→20:20)
[2022-01-21] MEDS ORDERED: MEROPENEM 500 MG VIAL (RESTRICTED TO ID) IVPB ONE (09:35)
[2022-01-21] MEDS ORDERED: DEXTROSE 5%-WATER 100 ML IVPB ONE (09:36)
[2022-01-21] MEDS: PANTOPRAZOLE SODIUM 40 MG VIAL IVPUSH SCH (10:00)
[2022-01-21] MEDS: MEROPENEM 500 MG in DEXTROSE 5%-WATER 100 ML IVPB SCH (10:00)
[2022-01-21] MEDS: ZINC SULFATE 220 MG CAPSULE (FP) GT SCH (10:00)
[2022-01-21] MEDS: FERROUS SO4 300 MG/5 ML ORAL SOLN UNIT DOSE CUPS GT SCH ×2 (10:00→21:25)
[2022-01-21] MEDS: AMINO ACIDS/PROTEIN HYDROLYS 30 ML LIQUID.PKT GT SCH ×2 (10:01→17:01)
[2022-01-21] MEDS: CARVEDILOL 3.125 MG TABLET (FP) GT SCH ×2 (10:01→21:25)
[2022-01-21] MEDS: MULTIVIT-MINERALS ORAL LIQUID GT SCH (10:01)
[2022-01-21] MEDS: ZINC OXIDE 20% TOPICAL OINTMENT 30 GM TUBE TP SCH (10:02)
[2022-01-21] MEDS: fentaNYL 75mcg/hr PATCH.TD72 TD SCH (16:59)
[2022-01-21] MEDS: FENTANYL PATCH WASTE TD PRN (19:16)
[2022-01-21] MEDS: ATORVASTATIN CA 40 MG TABLET (FP) GT SCH (21:25)
[2022-01-22] MEDS: CLINDAMYCIN 900 MG PREMIX IVPB 900 MG/50 ML BAG IVPB SCH ×3 (01:34→17:44)
[2022-01-22] MEDS: MIDODRINE HCL 5 MG TABLET PEG SCH ×3 (02:51→22:34)
[2022-01-22] MEDS: NYSTATIN 500,000 UNITS/5 ML SUSPENSION PO SCH ×4 (04:11→22:34)
[2022-01-22] MEDS: BANATROL PLUS POWDER PACKET GT SCH ×3 (06:11→22:34)
[2022-01-22] MEDS: LACTOBACILLUS ACIDOPHILUS 1 TABLET GT SCH ×3 (06:11→22:34)
[2022-01-22] MEDS: levETIRAcetam 500 MG/5 ML ORAL SOLUTION (UNIT-DOSE CUPS) GT SCH ×2 (06:11→17:45)
[2022-01-22 07:11] LABS: HEMATOCRIT 27.2 % (35.4-49); HEMOGLOBIN 8.5 GM/dL (11.7-16.9); MCH 27.9 pg (25.7-33.7); MCHC 31.2 g/dl (32.0-35.9); MEAN CELL VOLUME 89.4 fl (80-96); MEAN PLT VOLUME 6.9 fl (7.5-11.1); PLATELET COUNT 488 10^3/uL (134-434); RBC 3.04 M/mm3 (4.00-5.60); RDW 16.9 % (11.9-15.9); WHITE BLOOD COUNT 12.8 K/mm3 (4.0-10.0)
[2022-01-22] MEDS ORDERED: SODIUM CHLORIDE 250 ML IV PRN (07:21)
[2022-01-22 07:33] LABS: BLOOD UREA NITROGEN 42.6 mg/dL (7-18); CALCIUM 9.2 mg/dL (8.5-10.1)
[2022-01-22 07:36] LABS: CREATININE 3.5 mg/dL (0.55-1.3)
[2022-01-22] MEDS ORDERED: MEROPENEM 500 MG VIAL (RESTRICTED TO ID) IVPB ONE (07:57)
[2022-01-22] MEDS ORDERED: DEXTROSE 5%-WATER 100 ML IVPB ONE (07:57)
[2022-01-22] MEDS: AMINO ACIDS/PROTEIN HYDROLYS 30 ML LIQUID.PKT GT SCH ×2 (08:00→17:44)
[2022-01-22] MEDS ORDERED: EPOETIN ALFA-EPBX 20,000 UNIT/ML VIAL SQ ONE (08:00)
[2022-01-22] MEDS: ALBUTEROL SO4 2.5/IPRATROPIUM 0.5 INH SOL 3 ML VIAL.NEB. NEB SCH ×4 (09:31→20:46)
[2022-01-22] MEDS ORDERED: VANCOMYCIN/WATER FOR INJ (PEG) 1,000 MG/200 ML BAG IVPB ONE (10:38)
[2022-01-22] MEDS: ALBUMIN HUMAN 25% 12.5 GM/50 ML VIAL IV SCH (11:00)
[2022-01-22] MEDS: ACETAMINOPHEN 650 MG/20.3 ML ORAL SOLUTION (CUPS) NGT PRN (11:20)
[2022-01-22] MEDS: PANTOPRAZOLE SODIUM 40 MG VIAL IVPUSH SCH (11:21)
[2022-01-22] MEDS: FERROUS SO4 300 MG/5 ML ORAL SOLN UNIT DOSE CUPS GT SCH ×2 (11:22→22:34)
[2022-01-22] MEDS: MULTIVIT-MINERALS ORAL LIQUID GT SCH (11:22)
[2022-01-22] MEDS: ZINC SULFATE 220 MG CAPSULE (FP) GT SCH (11:22)
[2022-01-22] MEDS: ZINC OXIDE 20% TOPICAL OINTMENT 30 GM TUBE TP SCH (11:23)
[2022-01-22] MEDS: MEROPENEM 500 MG in DEXTROSE 5%-WATER 100 ML IVPB SCH (11:24)
[2022-01-22] MEDS: CARVEDILOL 3.125 MG TABLET (FP) GT SCH ×2 (11:34→22:34)
[2022-01-22] MEDS ORDERED: morphine SULFATE 4 MG/ML VIAL IVPUSH ONE (17:48)
[2022-01-22] MEDS: ATORVASTATIN CA 40 MG TABLET (FP) GT SCH (22:34)
[2022-01-23] MEDS: CLINDAMYCIN 900 MG PREMIX IVPB 900 MG/50 ML BAG IVPB SCH ×3 (02:05→17:30)
[2022-01-23] MEDS: MIDODRINE HCL 5 MG TABLET PEG SCH ×3 (04:00→19:46)
[2022-01-23] MEDS: NYSTATIN 500,000 UNITS/5 ML SUSPENSION PO SCH ×4 (05:01→23:11)
[2022-01-23] MEDS: BANATROL PLUS POWDER PACKET GT SCH ×3 (08:01→23:11)
[2022-01-23] MEDS: LACTOBACILLUS ACIDOPHILUS 1 TABLET GT SCH ×3 (08:01→23:11)
[2022-01-23] MEDS: levETIRAcetam 500 MG/5 ML ORAL SOLUTION (UNIT-DOSE CUPS) GT SCH (08:02)
[2022-01-23] MEDS: AMINO ACIDS/PROTEIN HYDROLYS 30 ML LIQUID.PKT GT SCH ×2 (08:02→17:30)
[2022-01-23] MEDS: ALBUTEROL SO4 2.5/IPRATROPIUM 0.5 INH SOL 3 ML VIAL.NEB. NEB SCH ×4 (08:17→20:33)
[2022-01-23] MEDS ORDERED: MEROPENEM 500 MG VIAL (RESTRICTED TO ID) IVPB ONE (09:30)
[2022-01-23] MEDS ORDERED: DEXTROSE 5%-WATER 100 ML IVPB ONE (09:30)
[2022-01-23] MEDS ORDERED: SODIUM CHLORIDE 250 ML IV PRN (10:32)
[2022-01-23] MEDS: MEROPENEM 500 MG in DEXTROSE 5%-WATER 100 ML IVPB SCH (10:38)
[2022-01-23] MEDS: CARVEDILOL 3.125 MG TABLET (FP) GT SCH ×2 (10:39→23:08)
[2022-01-23] MEDS: MULTIVIT-MINERALS ORAL LIQUID GT SCH (10:39)
[2022-01-23] MEDS: FERROUS SO4 300 MG/5 ML ORAL SOLN UNIT DOSE CUPS GT SCH ×2 (10:39→23:11)
[2022-01-23] MEDS: PANTOPRAZOLE SODIUM 40 MG VIAL IVPUSH SCH (10:39)
[2022-01-23] MEDS: ZINC SULFATE 220 MG CAPSULE (FP) GT SCH (10:39)
[2022-01-23] MEDS: ZINC OXIDE 20% TOPICAL OINTMENT 30 GM TUBE TP SCH (10:40)
[2022-01-23] MEDS: morphine SULFATE 4 MG/ML VIAL IVPUSH PRN (12:07)
[2022-01-23] MEDS: ATORVASTATIN CA 40 MG TABLET (FP) GT SCH (23:11)
[2022-01-24] MEDS: CLINDAMYCIN 900 MG PREMIX IVPB 900 MG/50 ML BAG IVPB SCH ×3 (02:34→17:18)
[2022-01-24] MEDS: NYSTATIN 500,000 UNITS/5 ML SUSPENSION PO SCH ×4 (03:36→22:34)
[2022-01-24] MEDS: MIDODRINE HCL 5 MG TABLET PEG SCH ×3 (03:36→18:36)
[2022-01-24] MEDS: LACTOBACILLUS ACIDOPHILUS 1 TABLET GT SCH ×3 (06:42→22:34)
[2022-01-24] MEDS: BANATROL PLUS POWDER PACKET GT SCH ×3 (06:42→22:34)
[2022-01-24] MEDS: levETIRAcetam 500 MG/5 ML ORAL SOLUTION (UNIT-DOSE CUPS) GT SCH ×2 (06:42→17:17)
[2022-01-24] MEDS: ALBUTEROL SO4 2.5/IPRATROPIUM 0.5 INH SOL 3 ML VIAL.NEB. NEB SCH ×4 (08:12→21:00)
[2022-01-24] MEDS ORDERED: EPOETIN ALFA-EPBX 20,000 UNIT/ML VIAL IVPUSH ONE (08:30)
[2022-01-24] MEDS ORDERED: MEROPENEM 500 MG VIAL (RESTRICTED TO ID) IVPB ONE (11:21)
[2022-01-24] MEDS ORDERED: DEXTROSE 5%-WATER 100 ML IVPB ONE (11:21)
[2022-01-24] MEDS: MEROPENEM 500 MG in DEXTROSE 5%-WATER 100 ML IVPB SCH (11:28)
[2022-01-24] MEDS: AMINO ACIDS/PROTEIN HYDROLYS 30 ML LIQUID.PKT GT SCH ×2 (11:30→17:18)
[2022-01-24] MEDS: FERROUS SO4 300 MG/5 ML ORAL SOLN UNIT DOSE CUPS GT SCH ×2 (11:32→22:34)
[2022-01-24] MEDS: PANTOPRAZOLE SODIUM 40 MG VIAL IVPUSH SCH (11:33)
[2022-01-24] MEDS: ZINC SULFATE 220 MG CAPSULE (FP) GT SCH (11:33)
[2022-01-24] MEDS: CARVEDILOL 3.125 MG TABLET (FP) GT SCH ×2 (11:33→22:34)
[2022-01-24] MEDS: ZINC OXIDE 20% TOPICAL OINTMENT 30 GM TUBE TP SCH (11:34)
[2022-01-24] MEDS: MULTIVIT-MINERALS ORAL LIQUID GT SCH (14:32)
[2022-01-24 16:32] LABS: BASO % 0.7 % (0-2.0); EOS % 2.6 % (0-4.5); HEMATOCRIT 27.6 % (35.4-49); HEMOGLOBIN 8.3 GM/dL (11.7-16.9); LYMPH % 11.2 % (8-40); MCH 26.7 pg (25.7-33.7); MCHC 30.2 g/dl (32.0-35.9); MEAN CELL VOLUME 88.1 fl (80-96); MEAN PLT VOLUME 6.8 fl (7.5-11.1); NEUT % 77.5 % (42.8-82.8); PLATELET COUNT 504 10^3/uL (134-434); RBC 3.13 M/mm3 (4.00-5.60); RDW 16.7 % (11.9-15.9); WHITE BLOOD COUNT 13.1 K/mm3 (4.0-10.0)
[2022-01-24 16:59] LABS: ALBUMIN 1.9 g/dl (3.4-5.0); CALCIUM 9.5 mg/dL (8.5-10.1)
[2022-01-24 17:00] LABS: BLOOD UREA NITROGEN 23.4 mg/dL (7-18)
[2022-01-24 17:02] LABS: CREATININE 2.1 mg/dL (0.55-1.3)
[2022-01-24 17:04] LABS: TOT PROT 7.2 g/dl (6.4-8.2)
[2022-01-24 17:06] LABS: BILIRUBIN,TOTAL 0.4 mg/dL (0.2-1)
[2022-01-24] MEDS: fentaNYL 75mcg/hr PATCH.TD72 TD SCH (17:09)
[2022-01-24] MEDS: FENTANYL PATCH WASTE TD PRN (17:11)
[2022-01-24] MEDS ORDERED: VANCOMYCIN/WATER FOR INJ (PEG) 1,000 MG/200 ML BAG IVPB ONE (17:53)
[2022-01-24] MEDS: ATORVASTATIN CA 40 MG TABLET (FP) GT SCH (22:34)
[2022-01-25] MEDS: MIDODRINE HCL 5 MG TABLET PEG SCH ×3 (04:00→20:06)
[2022-01-25] MEDS: NYSTATIN 500,000 UNITS/5 ML SUSPENSION PO SCH ×4 (04:30→21:16)
[2022-01-25] MEDS: LACTOBACILLUS ACIDOPHILUS 1 TABLET GT SCH ×3 (05:02→21:16)
[2022-01-25] MEDS: levETIRAcetam 500 MG/5 ML ORAL SOLUTION (UNIT-DOSE CUPS) GT SCH (05:02)
[2022-01-25] MEDS: morphine SULFATE 4 MG/ML VIAL IVPUSH PRN ×2 (05:07→15:08)
[2022-01-25] MEDS: BANATROL PLUS POWDER PACKET GT SCH ×3 (05:09→21:15)
[2022-01-25 07:20] LABS: BASO % 0.7 % (0-2.0); EOS % 3.1 % (0-4.5); HEMATOCRIT 27.6 % (35.4-49); HEMOGLOBIN 8.4 GM/dL (11.7-16.9); LYMPH % 17.2 % (8-40); MCH 27.2 pg (25.7-33.7); MCHC 30.6 g/dl (32.0-35.9); PLATELET COUNT 531 10^3/uL (134-434); RBC 3.11 M/mm3 (4.00-5.60); WHITE BLOOD COUNT 11.4 K/mm3 (4.0-10.0)
[2022-01-25 07:41] LABS: ALBUMIN 1.9 g/dl (3.4-5.0); CALCIUM 9.4 mg/dL (8.5-10.1)
[2022-01-25 07:42] LABS: BLOOD UREA NITROGEN 32.4 mg/dL (7-18)
[2022-01-25 07:44] LABS: CREATININE 2.6 mg/dL (0.55-1.3)
[2022-01-25 07:46] LABS: BILIRUBIN,TOTAL 0.7 mg/dL (0.2-1); TOT PROT 7.2 g/dl (6.4-8.2)
[2022-01-25] MEDS: ALBUTEROL SO4 2.5/IPRATROPIUM 0.5 INH SOL 3 ML VIAL.NEB. NEB SCH ×4 (07:57→20:45)
[2022-01-25] MEDS ORDERED: DEXTROSE 5%-WATER 100 ML IVPB ONE (10:18)
[2022-01-25] MEDS ORDERED: MEROPENEM 500 MG VIAL (RESTRICTED TO ID) IVPB ONE (10:18)
[2022-01-25] MEDS: AMINO ACIDS/PROTEIN HYDROLYS 30 ML LIQUID.PKT GT SCH ×2 (10:22→17:08)
[2022-01-25] MEDS: CARVEDILOL 3.125 MG TABLET (FP) GT SCH ×2 (10:23→21:16)
[2022-01-25] MEDS: FERROUS SO4 300 MG/5 ML ORAL SOLN UNIT DOSE CUPS GT SCH ×2 (10:23→21:16)
[2022-01-25] MEDS: MULTIVIT-MINERALS ORAL LIQUID GT SCH (10:23)
[2022-01-25] MEDS: PANTOPRAZOLE SODIUM 40 MG VIAL IVPUSH SCH (10:24)
[2022-01-25] MEDS: ZINC SULFATE 220 MG CAPSULE (FP) GT SCH (10:24)
[2022-01-25] MEDS: MEROPENEM 500 MG in DEXTROSE 5%-WATER 100 ML IVPB SCH (10:24)
[2022-01-25] MEDS: ZINC OXIDE 20% TOPICAL OINTMENT 30 GM TUBE TP SCH (10:25)
[2022-01-25] MEDS: ACETAMINOPHEN 650 MG/20.3 ML ORAL SOLUTION (CUPS) NGT PRN (21:15)
[2022-01-25] MEDS: ATORVASTATIN CA 40 MG TABLET (FP) GT SCH (21:16)
[2022-01-26] MEDS: MIDODRINE HCL 5 MG TABLET PEG SCH ×3 (03:43→19:51)
[2022-01-26] MEDS: NYSTATIN 500,000 UNITS/5 ML SUSPENSION PO SCH ×3 (03:44→17:07)
[2022-01-26] MEDS: BANATROL PLUS POWDER PACKET GT SCH ×3 (05:09→21:49)
[2022-01-26] MEDS: LACTOBACILLUS ACIDOPHILUS 1 TABLET GT SCH ×4 (05:09→21:49)
[2022-01-26] MEDS: levETIRAcetam 500 MG/5 ML ORAL SOLUTION (UNIT-DOSE CUPS) GT SCH (05:09)
[2022-01-26] MEDS: ALBUTEROL SO4 2.5/IPRATROPIUM 0.5 INH SOL 3 ML VIAL.NEB. NEB SCH ×4 (07:45→20:00)
[2022-01-26] MEDS: AMINO ACIDS/PROTEIN HYDROLYS 30 ML LIQUID.PKT GT SCH ×2 (10:16→17:07)
[2022-01-26] MEDS: CARVEDILOL 3.125 MG TABLET (FP) GT SCH ×2 (10:16→21:49)
[2022-01-26] MEDS: ZINC SULFATE 220 MG CAPSULE (FP) GT SCH (10:16)
[2022-01-26] MEDS: FERROUS SO4 300 MG/5 ML ORAL SOLN UNIT DOSE CUPS GT SCH ×2 (10:16→21:49)
[2022-01-26] MEDS: ZINC OXIDE 20% TOPICAL OINTMENT 30 GM TUBE TP SCH (10:17)
[2022-01-26] MEDS: PANTOPRAZOLE SODIUM 40 MG VIAL IVPUSH SCH (10:17)
[2022-01-26] MEDS: MULTIVIT-MINERALS ORAL LIQUID GT SCH (10:17)
[2022-01-26] MEDS ORDERED: DEXTROSE 5%-WATER 100 ML IVPB ONE (10:43)
[2022-01-26] MEDS ORDERED: MEROPENEM 500 MG VIAL (RESTRICTED TO ID) IVPB ONE (10:43)
[2022-01-26] MEDS: MEROPENEM 500 MG in DEXTROSE 5%-WATER 100 ML IVPB SCH (10:44)
[2022-01-26] MEDS: ACETAMINOPHEN 650 MG/20.3 ML ORAL SOLUTION (CUPS) NGT PRN (21:48)
[2022-01-26] MEDS: ATORVASTATIN CA 40 MG TABLET (FP) GT SCH (21:49)
[2022-01-27] MEDS: NYSTATIN 500,000 UNITS/5 ML SUSPENSION PO SCH ×5 (02:11→22:18)
[2022-01-27] MEDS: MIDODRINE HCL 5 MG TABLET PEG SCH ×3 (03:03→20:17)
[2022-01-27] MEDS: levETIRAcetam 500 MG/5 ML ORAL SOLUTION (UNIT-DOSE CUPS) GT SCH ×2 (05:17→17:25)
[2022-01-27] MEDS: BANATROL PLUS POWDER PACKET GT SCH ×3 (05:17→22:17)
[2022-01-27] MEDS: LACTOBACILLUS ACIDOPHILUS 1 TABLET GT SCH ×3 (05:17→22:17)
[2022-01-27] MEDS: ALBUTEROL SO4 2.5/IPRATROPIUM 0.5 INH SOL 3 ML VIAL.NEB. NEB SCH (07:15)
[2022-01-27 07:17] LABS: CALCIUM 9.1 mg/dL (8.5-10.1)
[2022-01-27 07:18] LABS: ALBUMIN 1.7 g/dl (3.4-5.0); MAGNESIUM 2.3 mg/dL (1.8-2.4)
[2022-01-27 07:21] LABS: PHOSPHOROUS 5.7 mg/dL (2.5-4.9)
[2022-01-27 07:22] LABS: BILIRUBIN,TOTAL 0.5 mg/dL (0.2-1)
[2022-01-27 07:28] LABS: BASO % 0.9 % (0-2.0); EOS % 4.4 % (0-4.5); HEMATOCRIT 25.8 % (35.4-49); HEMOGLOBIN 8.3 GM/dL (11.7-16.9); LYMPH % 15.4 % (8-40); MCH 28.4 pg (25.7-33.7); MCHC 32.3 g/dl (32.0-35.9); MEAN CELL VOLUME 88.1 fl (80-96); MEAN PLT VOLUME 7.2 fl (7.5-11.1); MONO % 8.4 % (3.8-10.2); NEUT % 70.9 % (42.8-82.8); PLATELET COUNT 459 10^3/uL (134-434); RBC 2.93 M/mm3 (4.00-5.60); WHITE BLOOD COUNT 11.9 K/mm3 (4.0-10.0)
[2022-01-27 08:14] LABS: BLOOD UREA NITROGEN 59.7 mg/dL (7-18)
[2022-01-27] MEDS ORDERED: EPOETIN ALFA-EPBX 20,000 UNIT/ML VIAL IVPUSH ONE (09:00)
[2022-01-27] MEDS: AMINO ACIDS/PROTEIN HYDROLYS 30 ML LIQUID.PKT GT SCH ×2 (09:09→17:24)
[2022-01-27] MEDS: ZINC SULFATE 220 MG CAPSULE (FP) GT SCH (10:18)
[2022-01-27] MEDS: CARVEDILOL 3.125 MG TABLET (FP) GT SCH ×2 (10:18→22:20)
[2022-01-27] MEDS: PANTOPRAZOLE SODIUM 40 MG VIAL IVPUSH SCH (10:18)
[2022-01-27] MEDS: FERROUS SO4 300 MG/5 ML ORAL SOLN UNIT DOSE CUPS GT SCH ×2 (10:18→22:20)
[2022-01-27] MEDS: MEROPENEM 500 MG in DEXTROSE 5%-WATER 100 ML IVPB SCH (10:18)
[2022-01-27] MEDS: MULTIVIT-MINERALS ORAL LIQUID GT SCH (10:18)
[2022-01-27] MEDS: ZINC OXIDE 20% TOPICAL OINTMENT 30 GM TUBE TP SCH (10:19)
[2022-01-27] MEDS: ATORVASTATIN CA 40 MG TABLET (FP) GT SCH (22:18)
[2022-01-28] MEDS: MIDODRINE HCL 5 MG TABLET PEG SCH ×3 (03:55→20:11)
[2022-01-28] MEDS: NYSTATIN 500,000 UNITS/5 ML SUSPENSION PO SCH ×4 (03:55→21:16)
[2022-01-28] MEDS: LACTOBACILLUS ACIDOPHILUS 1 TABLET GT SCH ×3 (06:36→21:09)
[2022-01-28] MEDS: BANATROL PLUS POWDER PACKET GT SCH ×3 (06:36→21:09)
[2022-01-28] MEDS ORDERED: MEROPENEM 500 MG VIAL (RESTRICTED TO ID) IVPB ONE (08:19)
[2022-01-28] MEDS ORDERED: DEXTROSE 5%-WATER 100 ML IVPB ONE (08:19)
[2022-01-28] MEDS: levETIRAcetam 500 MG/5 ML ORAL SOLUTION (UNIT-DOSE CUPS) GT SCH (08:26)
[2022-01-28] MEDS: AMINO ACIDS/PROTEIN HYDROLYS 30 ML LIQUID.PKT GT SCH ×2 (08:27→17:50)
[2022-01-28] MEDS: CARVEDILOL 3.125 MG TABLET (FP) GT SCH ×2 (09:38→21:09)
[2022-01-28] MEDS: MEROPENEM 500 MG in DEXTROSE 5%-WATER 100 ML IVPB SCH (09:38)
[2022-01-28] MEDS: PANTOPRAZOLE SODIUM 40 MG VIAL IVPUSH SCH (09:38)
[2022-01-28] MEDS: MULTIVIT-MINERALS ORAL LIQUID GT SCH (09:39)
[2022-01-28] MEDS: ZINC SULFATE 220 MG CAPSULE (FP) GT SCH (09:40)
[2022-01-28] MEDS: FERROUS SO4 300 MG/5 ML ORAL SOLN UNIT DOSE CUPS GT SCH ×2 (09:40→21:09)
[2022-01-28] MEDS: ZINC OXIDE 20% TOPICAL OINTMENT 30 GM TUBE TP SCH (09:40)
[2022-01-28] MEDS: ATORVASTATIN CA 40 MG TABLET (FP) GT SCH (21:09)
[2022-01-29] MEDS: MIDODRINE HCL 5 MG TABLET PEG SCH ×3 (03:54→19:23)
[2022-01-29] MEDS: NYSTATIN 500,000 UNITS/5 ML SUSPENSION PO SCH ×4 (03:54→21:23)
[2022-01-29] MEDS: LACTOBACILLUS ACIDOPHILUS 1 TABLET GT SCH ×3 (05:54→21:23)
[2022-01-29] MEDS: BANATROL PLUS POWDER PACKET GT SCH ×3 (05:54→21:23)
[2022-01-29] MEDS: levETIRAcetam 500 MG/5 ML ORAL SOLUTION (UNIT-DOSE CUPS) GT SCH ×2 (05:54→17:40)
[2022-01-29] MEDS ORDERED: MEROPENEM 500 MG VIAL (RESTRICTED TO ID) IVPB ONE (09:29)
[2022-01-29] MEDS ORDERED: DEXTROSE 5%-WATER 100 ML IVPB ONE (09:30)
[2022-01-29] MEDS: CARVEDILOL 3.125 MG TABLET (FP) GT SCH ×2 (09:48→21:23)
[2022-01-29] MEDS: AMINO ACIDS/PROTEIN HYDROLYS 30 ML LIQUID.PKT GT SCH ×2 (09:48→17:39)
[2022-01-29] MEDS: MULTIVIT-MINERALS ORAL LIQUID GT SCH (09:48)
[2022-01-29] MEDS: ZINC SULFATE 220 MG CAPSULE (FP) GT SCH (09:49)
[2022-01-29] MEDS: FERROUS SO4 300 MG/5 ML ORAL SOLN UNIT DOSE CUPS GT SCH ×2 (09:49→21:23)
[2022-01-29] MEDS: MEROPENEM 500 MG in DEXTROSE 5%-WATER 100 ML IVPB SCH (09:49)
[2022-01-29] MEDS: PANTOPRAZOLE SODIUM 40 MG VIAL IVPUSH SCH (09:49)
[2022-01-29] MEDS: ZINC OXIDE 20% TOPICAL OINTMENT 30 GM TUBE TP SCH (09:50)
[2022-01-29] MEDS: ATORVASTATIN CA 40 MG TABLET (FP) GT SCH (21:23)
[2022-01-29] MEDS: ACETAMINOPHEN 650 MG/20.3 ML ORAL SOLUTION (CUPS) NGT PRN (21:24)
[2022-01-30] MEDS: MIDODRINE HCL 5 MG TABLET PEG SCH ×3 (02:58→20:30)
[2022-01-30] MEDS: NYSTATIN 500,000 UNITS/5 ML SUSPENSION PO SCH ×4 (04:15→21:20)
[2022-01-30] MEDS: LACTOBACILLUS ACIDOPHILUS 1 TABLET GT SCH ×3 (05:44→21:20)
[2022-01-30] MEDS: levETIRAcetam 500 MG/5 ML ORAL SOLUTION (UNIT-DOSE CUPS) GT SCH (05:44)
[2022-01-30] MEDS: BANATROL PLUS POWDER PACKET GT SCH ×3 (05:44→21:20)
[2022-01-30] MEDS ORDERED: MEROPENEM 500 MG VIAL (RESTRICTED TO ID) IVPB ONE (09:04)
[2022-01-30] MEDS ORDERED: DEXTROSE 5%-WATER 100 ML IVPB ONE (09:05)
[2022-01-30] MEDS ORDERED: SODIUM CHLORIDE 250 ML IV PRN (09:06)
[2022-01-30] MEDS: FERROUS SO4 300 MG/5 ML ORAL SOLN UNIT DOSE CUPS GT SCH ×2 (09:09→21:20)
[2022-01-30] MEDS: CARVEDILOL 3.125 MG TABLET (FP) GT SCH ×2 (09:09→21:20)
[2022-01-30] MEDS: AMINO ACIDS/PROTEIN HYDROLYS 30 ML LIQUID.PKT GT SCH ×2 (09:09→17:25)
[2022-01-30] MEDS: MEROPENEM 500 MG in DEXTROSE 5%-WATER 100 ML IVPB SCH (09:10)
[2022-01-30] MEDS: ZINC SULFATE 220 MG CAPSULE (FP) GT SCH (09:10)
[2022-01-30] MEDS: PANTOPRAZOLE SODIUM 40 MG VIAL IVPUSH SCH (09:10)
[2022-01-30] MEDS: ZINC OXIDE 20% TOPICAL OINTMENT 30 GM TUBE TP SCH (10:43)
[2022-01-30] MEDS: MULTIVIT-MINERALS ORAL LIQUID GT SCH (10:43)
[2022-01-30] MEDS ORDERED: EPOETIN ALFA-EPBX 10,000 UNIT/ML VIAL IVPUSH ONE (13:00)
[2022-01-30] MEDS: ATORVASTATIN CA 40 MG TABLET (FP) GT SCH (21:20)
[2022-01-31] MEDS: NYSTATIN 500,000 UNITS/5 ML SUSPENSION PO SCH ×4 (03:22→21:22)
[2022-01-31] MEDS: MIDODRINE HCL 5 MG TABLET PEG SCH ×3 (03:22→18:51)
[2022-01-31] MEDS: BANATROL PLUS POWDER PACKET GT SCH ×3 (06:18→21:23)
[2022-01-31] MEDS: LACTOBACILLUS ACIDOPHILUS 1 TABLET GT SCH ×3 (06:18→21:22)
[2022-01-31] MEDS: levETIRAcetam 500 MG/5 ML ORAL SOLUTION (UNIT-DOSE CUPS) GT SCH ×2 (06:19→18:25)
[2022-01-31] MEDS: AMINO ACIDS/PROTEIN HYDROLYS 30 ML LIQUID.PKT GT SCH ×2 (09:00→16:41)
[2022-01-31] MEDS ORDERED: DEXTROSE 5%-WATER 100 ML IVPB ONE (09:23)
[2022-01-31] MEDS ORDERED: MEROPENEM 500 MG VIAL (RESTRICTED TO ID) IVPB ONE (09:23)
[2022-01-31] MEDS: MULTIVIT-MINERALS ORAL LIQUID GT SCH (09:51)
[2022-01-31] MEDS: ZINC SULFATE 220 MG CAPSULE (FP) GT SCH (09:52)
[2022-01-31] MEDS: PANTOPRAZOLE SODIUM 40 MG VIAL IVPUSH SCH (09:52)
[2022-01-31] MEDS: FERROUS SO4 300 MG/5 ML ORAL SOLN UNIT DOSE CUPS GT SCH ×2 (09:52→21:22)
[2022-01-31] MEDS: CARVEDILOL 3.125 MG TABLET (FP) GT SCH ×2 (09:52→21:22)
[2022-01-31] MEDS: MEROPENEM 500 MG in DEXTROSE 5%-WATER 100 ML IVPB SCH (09:52)
[2022-01-31] MEDS: ZINC OXIDE 20% TOPICAL OINTMENT 30 GM TUBE TP SCH (09:53)
[2022-01-31] MEDS ORDERED: EPOETIN ALFA-EPBX 10,000 UNIT/ML VIAL SQ ONE (11:19)
[2022-01-31] MEDS ORDERED: SODIUM CHLORIDE 250 ML IV PRN (11:19)
[2022-01-31] MEDS: ATORVASTATIN CA 40 MG TABLET (FP) GT SCH (21:22)
[2022-02-01] MEDS: MIDODRINE HCL 5 MG TABLET PEG SCH ×3 (04:31→18:31)
[2022-02-01] MEDS: NYSTATIN 500,000 UNITS/5 ML SUSPENSION PO SCH ×4 (04:32→21:59)
[2022-02-01] MEDS: BANATROL PLUS POWDER PACKET GT SCH ×3 (05:37→21:59)
[2022-02-01] MEDS: LACTOBACILLUS ACIDOPHILUS 1 TABLET GT SCH ×3 (05:37→21:59)
[2022-02-01] MEDS: levETIRAcetam 500 MG/5 ML ORAL SOLUTION (UNIT-DOSE CUPS) GT SCH (05:38)
[2022-02-01] MEDS: AMINO ACIDS/PROTEIN HYDROLYS 30 ML LIQUID.PKT GT SCH ×2 (07:26→17:14)
[2022-02-01] MEDS ORDERED: EPOETIN ALFA-EPBX 10,000 UNIT/ML VIAL SQ ONE (08:15)
[2022-02-01] MEDS ORDERED: SODIUM CHLORIDE 250 ML IV PRN (08:20)
[2022-02-01] MEDS ORDERED: MEROPENEM 500 MG VIAL (RESTRICTED TO ID) IVPB ONE (09:41)
[2022-02-01] MEDS ORDERED: DEXTROSE 5%-WATER 100 ML IVPB ONE (09:41)
[2022-02-01] MEDS: FERROUS SO4 300 MG/5 ML ORAL SOLN UNIT DOSE CUPS GT SCH ×2 (10:43→21:58)
[2022-02-01] MEDS: MULTIVIT-MINERALS ORAL LIQUID GT SCH (10:43)
[2022-02-01] MEDS: CARVEDILOL 3.125 MG TABLET (FP) GT SCH ×2 (10:43→21:59)
[2022-02-01] MEDS: PANTOPRAZOLE SODIUM 40 MG VIAL IVPUSH SCH (10:44)
[2022-02-01] MEDS: ZINC OXIDE 20% TOPICAL OINTMENT 30 GM TUBE TP SCH (10:44)
[2022-02-01] MEDS: MEROPENEM 500 MG in DEXTROSE 5%-WATER 100 ML IVPB SCH (10:44)
[2022-02-01] MEDS: ZINC SULFATE 220 MG CAPSULE (FP) GT SCH (10:44)
[2022-02-01] MEDS: ATORVASTATIN CA 40 MG TABLET (FP) GT SCH (21:59)
[2022-02-02] MEDS: MIDODRINE HCL 5 MG TABLET PEG SCH ×3 (04:44→20:17)
[2022-02-02] MEDS: levETIRAcetam 500 MG/5 ML ORAL SOLUTION (UNIT-DOSE CUPS) GT SCH (05:50)
[2022-02-02] MEDS: LACTOBACILLUS ACIDOPHILUS 1 TABLET GT SCH ×3 (05:50→21:05)
[2022-02-02] MEDS: NYSTATIN 500,000 UNITS/5 ML SUSPENSION PO SCH ×4 (05:50→22:51)
[2022-02-02] MEDS: BANATROL PLUS POWDER PACKET GT SCH ×3 (05:50→21:04)
[2022-02-02] MEDS: AMINO ACIDS/PROTEIN HYDROLYS 30 ML LIQUID.PKT GT SCH ×2 (08:22→17:38)
[2022-02-02] MEDS ORDERED: MEROPENEM 500 MG VIAL (RESTRICTED TO ID) IVPB ONE (09:35)
[2022-02-02] MEDS ORDERED: DEXTROSE 5%-WATER 100 ML IVPB ONE (09:35)
[2022-02-02] MEDS: MULTIVIT-MINERALS ORAL LIQUID GT SCH (09:40)
[2022-02-02] MEDS: ZINC SULFATE 220 MG CAPSULE (FP) GT SCH (09:40)
[2022-02-02] MEDS: MEROPENEM 500 MG in DEXTROSE 5%-WATER 100 ML IVPB SCH (09:40)
[2022-02-02] MEDS: FERROUS SO4 300 MG/5 ML ORAL SOLN UNIT DOSE CUPS GT SCH ×2 (09:40→21:05)
[2022-02-02] MEDS: CARVEDILOL 3.125 MG TABLET (FP) GT SCH ×2 (09:40→21:05)
[2022-02-02] MEDS: ZINC OXIDE 20% TOPICAL OINTMENT 30 GM TUBE TP SCH (09:41)
[2022-02-02] MEDS: PANTOPRAZOLE SODIUM 40 MG VIAL IVPUSH SCH (09:41)
[2022-02-02] MEDS: ACETAMINOPHEN 650 MG/20.3 ML ORAL SOLUTION (CUPS) NGT PRN (21:04)
[2022-02-02] MEDS: ATORVASTATIN CA 40 MG TABLET (FP) GT SCH (21:05)
[2022-02-03] MEDS: NYSTATIN 500,000 UNITS/5 ML SUSPENSION PO SCH ×4 (04:19→22:01)
[2022-02-03] MEDS: MIDODRINE HCL 5 MG TABLET PEG SCH ×3 (04:19→20:10)
[2022-02-03] MEDS: BANATROL PLUS POWDER PACKET GT SCH ×3 (05:38→22:00)
[2022-02-03] MEDS: levETIRAcetam 500 MG/5 ML ORAL SOLUTION (UNIT-DOSE CUPS) GT SCH ×2 (05:38→18:23)
[2022-02-03] MEDS: LACTOBACILLUS ACIDOPHILUS 1 TABLET GT SCH ×3 (05:39→22:00)
[2022-02-03] MEDS: AMINO ACIDS/PROTEIN HYDROLYS 30 ML LIQUID.PKT GT SCH ×2 (08:00→17:30)
[2022-02-03] MEDS: PANTOPRAZOLE SODIUM 40 MG VIAL IVPUSH SCH (10:00)
[2022-02-03] MEDS: MEROPENEM 500 MG in DEXTROSE 5%-WATER 100 ML IVPB SCH (10:00)
[2022-02-03] MEDS: FERROUS SO4 300 MG/5 ML ORAL SOLN UNIT DOSE CUPS GT SCH ×2 (10:00→22:00)
[2022-02-03] MEDS: MULTIVIT-MINERALS ORAL LIQUID GT SCH (10:00)
[2022-02-03] MEDS: ZINC OXIDE 20% TOPICAL OINTMENT 30 GM TUBE TP SCH (10:00)
[2022-02-03] MEDS: CARVEDILOL 3.125 MG TABLET (FP) GT SCH ×2 (10:00→22:00)
[2022-02-03] MEDS: ZINC SULFATE 220 MG CAPSULE (FP) GT SCH (10:00)
[2022-02-03] MEDS ORDERED: DEXTROSE 5%-WATER 100 ML IVPB ONE (10:34)
[2022-02-03] MEDS ORDERED: MEROPENEM 500 MG VIAL (RESTRICTED TO ID) IVPB ONE (10:34)
[2022-02-03] MEDS: ATORVASTATIN CA 40 MG TABLET (FP) GT SCH (22:00)
[2022-02-04] MEDS: NYSTATIN 500,000 UNITS/5 ML SUSPENSION PO SCH ×4 (05:49→22:13)
[2022-02-04] MEDS: levETIRAcetam 500 MG/5 ML ORAL SOLUTION (UNIT-DOSE CUPS) GT SCH (05:50)
[2022-02-04] MEDS: BANATROL PLUS POWDER PACKET GT SCH ×3 (05:50→22:13)
[2022-02-04] MEDS: LACTOBACILLUS ACIDOPHILUS 1 TABLET GT SCH ×3 (05:50→22:13)
[2022-02-04] MEDS: MIDODRINE HCL 5 MG TABLET PEG SCH ×4 (05:50→19:45)
[2022-02-04] MEDS ORDERED: EPOETIN ALFA-EPBX 10,000 UNIT/ML VIAL SQ ONE (07:00)
[2022-02-04] MEDS ORDERED: SODIUM CHLORIDE 250 ML IV PRN (07:00)
[2022-02-04] MEDS ORDERED: MEROPENEM 500 MG VIAL (RESTRICTED TO ID) IVPB ONE (09:30)
[2022-02-04] MEDS ORDERED: DEXTROSE 5%-WATER 100 ML IVPB ONE (09:30)
[2022-02-04] MEDS: ZINC SULFATE 220 MG CAPSULE (FP) GT SCH (10:30)
[2022-02-04] MEDS: CARVEDILOL 3.125 MG TABLET (FP) GT SCH ×2 (10:30→22:13)
[2022-02-04] MEDS: PANTOPRAZOLE SODIUM 40 MG VIAL IVPUSH SCH (10:30)
[2022-02-04] MEDS: MEROPENEM 500 MG in DEXTROSE 5%-WATER 100 ML IVPB SCH (10:30)
[2022-02-04] MEDS: AMINO ACIDS/PROTEIN HYDROLYS 30 ML LIQUID.PKT GT SCH ×2 (10:30→17:30)
[2022-02-04] MEDS: ZINC OXIDE 20% TOPICAL OINTMENT 30 GM TUBE TP SCH (10:30)
[2022-02-04] MEDS: MULTIVIT-MINERALS ORAL LIQUID GT SCH (10:30)
[2022-02-04] MEDS: FERROUS SO4 300 MG/5 ML ORAL SOLN UNIT DOSE CUPS GT SCH ×2 (10:30→22:13)
[2022-02-04] MEDS: ATORVASTATIN CA 40 MG TABLET (FP) GT SCH (22:13)
[2022-02-05] MEDS: MIDODRINE HCL 5 MG TABLET PEG SCH ×4 (02:30→21:37)
[2022-02-05] MEDS: NYSTATIN 500,000 UNITS/5 ML SUSPENSION PO SCH ×4 (03:57→21:37)
[2022-02-05] MEDS: BANATROL PLUS POWDER PACKET GT SCH ×3 (05:56→21:37)
[2022-02-05] MEDS: LACTOBACILLUS ACIDOPHILUS 1 TABLET GT SCH ×3 (05:57→21:37)
[2022-02-05] MEDS: levETIRAcetam 500 MG/5 ML ORAL SOLUTION (UNIT-DOSE CUPS) GT SCH ×2 (05:57→18:08)
[2022-02-05] MEDS ORDERED: DEXTROSE 5%-WATER 100 ML IVPB ONE (10:58)
[2022-02-05] MEDS ORDERED: MEROPENEM 500 MG VIAL (RESTRICTED TO ID) IVPB ONE (10:58)
[2022-02-05] MEDS: CARVEDILOL 3.125 MG TABLET (FP) GT SCH ×2 (11:05→21:37)
[2022-02-05] MEDS: FERROUS SO4 300 MG/5 ML ORAL SOLN UNIT DOSE CUPS GT SCH ×2 (11:05→21:37)
[2022-02-05] MEDS: ZINC SULFATE 220 MG CAPSULE (FP) GT SCH (11:05)
[2022-02-05] MEDS: MEROPENEM 500 MG in DEXTROSE 5%-WATER 100 ML IVPB SCH (11:05)
[2022-02-05] MEDS: AMINO ACIDS/PROTEIN HYDROLYS 30 ML LIQUID.PKT GT SCH ×2 (11:05→18:08)
[2022-02-05] MEDS: PANTOPRAZOLE SODIUM 40 MG VIAL IVPUSH SCH (11:06)
[2022-02-05] MEDS: ZINC OXIDE 20% TOPICAL OINTMENT 30 GM TUBE TP SCH (11:06)
[2022-02-05] MEDS: MULTIVIT-MINERALS ORAL LIQUID GT SCH (11:46)
[2022-02-05] MEDS ORDERED: SODIUM CHLORIDE 250 ML IV PRN (15:46)
[2022-02-05] MEDS: ATORVASTATIN CA 40 MG TABLET (FP) GT SCH (21:37)
[2022-02-06] MEDS: MIDODRINE HCL 5 MG TABLET PEG SCH ×3 (04:30→20:00)
[2022-02-06] MEDS: NYSTATIN 500,000 UNITS/5 ML SUSPENSION PO SCH ×4 (05:02→21:39)
[2022-02-06] MEDS: BANATROL PLUS POWDER PACKET GT SCH ×3 (05:03→21:39)
[2022-02-06] MEDS: levETIRAcetam 500 MG/5 ML ORAL SOLUTION (UNIT-DOSE CUPS) GT SCH (05:03)
[2022-02-06] MEDS: LACTOBACILLUS ACIDOPHILUS 1 TABLET GT SCH ×3 (05:03→21:39)
[2022-02-06] MEDS ORDERED: EPOETIN ALFA-EPBX 10,000 UNIT/ML VIAL IVPUSH ONE (07:15)
[2022-02-06 08:39] LABS: HEMATOCRIT 27.2 % (35.4-49); HEMOGLOBIN 8.5 GM/dL (11.7-16.9); MCH 26.8 pg (25.7-33.7); MCHC 31.3 g/dl (32.0-35.9); MEAN CELL VOLUME 85.6 fl (80-96); MEAN PLT VOLUME 7.5 fl (7.5-11.1); PLATELET COUNT 412 10^3/uL (134-434); RBC 3.18 M/mm3 (4.00-5.60); RDW 17.5 % (11.9-15.9); WHITE BLOOD COUNT 12.7 K/mm3 (4.0-10.0)
[2022-02-06 09:00] LABS: CREATININE 3.9 mg/dL (0.55-1.3)
[2022-02-06] MEDS ORDERED: MEROPENEM 500 MG VIAL (RESTRICTED TO ID) IVPB ONE (10:45)
[2022-02-06] MEDS ORDERED: DEXTROSE 5%-WATER 100 ML IVPB ONE (10:45)
[2022-02-06] MEDS: MEROPENEM 500 MG in DEXTROSE 5%-WATER 100 ML IVPB SCH (10:49)
[2022-02-06] MEDS: CARVEDILOL 3.125 MG TABLET (FP) GT SCH ×2 (10:50→21:39)
[2022-02-06] MEDS: PANTOPRAZOLE SODIUM 40 MG VIAL IVPUSH SCH (10:50)
[2022-02-06] MEDS: FERROUS SO4 300 MG/5 ML ORAL SOLN UNIT DOSE CUPS GT SCH ×2 (10:50→21:39)
[2022-02-06] MEDS: AMINO ACIDS/PROTEIN HYDROLYS 30 ML LIQUID.PKT GT SCH ×2 (10:50→18:15)
[2022-02-06] MEDS: ZINC OXIDE 20% TOPICAL OINTMENT 30 GM TUBE TP SCH (10:51)
[2022-02-06] MEDS: MULTIVIT-MINERALS ORAL LIQUID GT SCH (10:51)
[2022-02-06] MEDS: ZINC SULFATE 220 MG CAPSULE (FP) GT SCH (10:51)
[2022-02-06] MEDS: ATORVASTATIN CA 40 MG TABLET (FP) GT SCH (21:39)
[2022-02-07] MEDS: MIDODRINE HCL 5 MG TABLET PEG SCH ×3 (02:33→19:35)
[2022-02-07] MEDS: LACTOBACILLUS ACIDOPHILUS 1 TABLET GT SCH ×3 (05:56→22:15)
[2022-02-07] MEDS: BANATROL PLUS POWDER PACKET GT SCH ×3 (05:56→22:15)
[2022-02-07] MEDS: NYSTATIN 500,000 UNITS/5 ML SUSPENSION PO SCH ×4 (05:56→22:15)
[2022-02-07] MEDS: levETIRAcetam 500 MG/5 ML ORAL SOLUTION (UNIT-DOSE CUPS) GT SCH ×2 (05:56→17:56)
[2022-02-07] MEDS ORDERED: MEROPENEM 500 MG VIAL (RESTRICTED TO ID) IVPB ONE (08:42)
[2022-02-07] MEDS ORDERED: DEXTROSE 5%-WATER 100 ML IVPB ONE (08:42)
[2022-02-07] MEDS: PANTOPRAZOLE SODIUM 40 MG VIAL IVPUSH SCH (09:09)
[2022-02-07] MEDS: MEROPENEM 500 MG in DEXTROSE 5%-WATER 100 ML IVPB SCH (09:09)
[2022-02-07] MEDS: CARVEDILOL 3.125 MG TABLET (FP) GT SCH ×2 (09:10→22:15)
[2022-02-07] MEDS: MULTIVIT-MINERALS ORAL LIQUID GT SCH (09:10)
[2022-02-07] MEDS: FERROUS SO4 300 MG/5 ML ORAL SOLN UNIT DOSE CUPS GT SCH ×2 (09:10→22:15)
[2022-02-07] MEDS: ZINC SULFATE 220 MG CAPSULE (FP) GT SCH (09:10)
[2022-02-07] MEDS: ZINC OXIDE 20% TOPICAL OINTMENT 30 GM TUBE TP SCH (09:10)
[2022-02-07] MEDS: AMINO ACIDS/PROTEIN HYDROLYS 30 ML LIQUID.PKT GT SCH ×2 (09:10→17:56)
[2022-02-07] MEDS ORDERED: VANCOMYCIN/WATER FOR INJ (PEG) 1,000 MG/200 ML BAG IVPB ONE (18:15)
[2022-02-07] MEDS: ATORVASTATIN CA 40 MG TABLET (FP) GT SCH (22:15)
[2022-02-08] MEDS: MIDODRINE HCL 5 MG TABLET PEG SCH ×3 (03:25→20:45)
[2022-02-08] MEDS: NYSTATIN 500,000 UNITS/5 ML SUSPENSION PO SCH ×4 (03:27→22:17)
[2022-02-08] MEDS: BANATROL PLUS POWDER PACKET GT SCH ×3 (06:21→22:17)
[2022-02-08] MEDS: LACTOBACILLUS ACIDOPHILUS 1 TABLET GT SCH ×3 (06:21→22:16)
[2022-02-08] MEDS: levETIRAcetam 500 MG/5 ML ORAL SOLUTION (UNIT-DOSE CUPS) GT SCH (06:21)
[2022-02-08] MEDS ORDERED: EPOETIN ALFA-EPBX 10,000 UNIT/ML VIAL SQ ONE (07:00)
[2022-02-08] MEDS ORDERED: SODIUM CHLORIDE 250 ML IV PRN (07:00)
[2022-02-08] MEDS ORDERED: DEXTROSE 5%-WATER 100 ML IVPB ONE (11:05)
[2022-02-08] MEDS ORDERED: MEROPENEM 500 MG VIAL (RESTRICTED TO ID) IVPB ONE (11:05)
[2022-02-08] MEDS: FERROUS SO4 300 MG/5 ML ORAL SOLN UNIT DOSE CUPS GT SCH ×2 (11:31→22:17)
[2022-02-08] MEDS: MULTIVIT-MINERALS ORAL LIQUID GT SCH (11:31)
[2022-02-08] MEDS: ZINC SULFATE 220 MG CAPSULE (FP) GT SCH (11:31)
[2022-02-08] MEDS: AMINO ACIDS/PROTEIN HYDROLYS 30 ML LIQUID.PKT GT SCH ×2 (11:31→18:10)
[2022-02-08] MEDS: CARVEDILOL 3.125 MG TABLET (FP) GT SCH ×2 (11:31→22:17)
[2022-02-08] MEDS: PANTOPRAZOLE SODIUM 40 MG VIAL IVPUSH SCH (11:31)
[2022-02-08] MEDS: ZINC OXIDE 20% TOPICAL OINTMENT 30 GM TUBE TP SCH (11:32)
[2022-02-08] MEDS: MEROPENEM 500 MG in DEXTROSE 5%-WATER 100 ML IVPB SCH (11:32)
[2022-02-08] MEDS: ACETAMINOPHEN 650 MG/20.3 ML ORAL SOLUTION (CUPS) NGT PRN (15:51)
[2022-02-08] MEDS: ATORVASTATIN CA 40 MG TABLET (FP) GT SCH (22:17)
[2022-02-09] MEDS: MIDODRINE HCL 5 MG TABLET PEG SCH ×4 (04:30→17:35)
[2022-02-09] MEDS: NYSTATIN 500,000 UNITS/5 ML SUSPENSION PO SCH ×4 (07:03→21:27)
[2022-02-09] MEDS: levETIRAcetam 500 MG/5 ML ORAL SOLUTION (UNIT-DOSE CUPS) GT SCH (07:03)
[2022-02-09] MEDS: BANATROL PLUS POWDER PACKET GT SCH ×3 (07:03→21:27)
[2022-02-09] MEDS: LACTOBACILLUS ACIDOPHILUS 1 TABLET GT SCH ×3 (07:03→21:27)
[2022-02-09] MEDS: AMINO ACIDS/PROTEIN HYDROLYS 30 ML LIQUID.PKT GT SCH ×2 (08:55→17:35)
[2022-02-09] MEDS ORDERED: DEXTROSE 5%-WATER 100 ML IVPB ONE (09:37)
[2022-02-09] MEDS ORDERED: MEROPENEM 500 MG VIAL (RESTRICTED TO ID) IVPB ONE (09:37)
[2022-02-09] MEDS: MULTIVIT-MINERALS ORAL LIQUID GT SCH (10:55)
[2022-02-09] MEDS: FERROUS SO4 300 MG/5 ML ORAL SOLN UNIT DOSE CUPS GT SCH ×2 (10:55→21:27)
[2022-02-09] MEDS: ZINC SULFATE 220 MG CAPSULE (FP) GT SCH (10:55)
[2022-02-09] MEDS: ZINC OXIDE 20% TOPICAL OINTMENT 30 GM TUBE TP SCH (10:55)
[2022-02-09] MEDS: PANTOPRAZOLE SODIUM 40 MG VIAL IVPUSH SCH (10:55)
[2022-02-09] MEDS: MEROPENEM 500 MG in DEXTROSE 5%-WATER 100 ML IVPB SCH (10:55)
[2022-02-09] MEDS: CARVEDILOL 3.125 MG TABLET (FP) GT SCH ×2 (10:55→21:27)
[2022-02-09] MEDS: ACETAMINOPHEN 650 MG/20.3 ML ORAL SOLUTION (CUPS) NGT PRN ×2 (11:06→21:26)
[2022-02-09 13:57] LABS: HEMATOCRIT 28.1 % (35.4-49); HEMOGLOBIN 8.8 GM/dL (11.7-16.9); MCH 26.5 pg (25.7-33.7); MCHC 31.2 g/dl (32.0-35.9); MEAN CELL VOLUME 84.9 fl (80-96); MEAN PLT VOLUME 7.2 fl (7.5-11.1); PLATELET COUNT 324 10^3/uL (134-434); RBC 3.31 M/mm3 (4.00-5.60); RDW 17.8 % (11.9-15.9); WHITE BLOOD COUNT 11.5 K/mm3 (4.0-10.0)
[2022-02-09 14:12] LABS: CALCIUM 9.8 mg/dL (8.5-10.1)
[2022-02-09 14:13] LABS: BLOOD UREA NITROGEN 43.6 mg/dL (7-18); MAGNESIUM 2.4 mg/dL (1.8-2.4)
[2022-02-09 14:16] LABS: PHOSPHOROUS 3.9 mg/dL (2.5-4.9)
[2022-02-09 14:17] LABS: BILIRUBIN,TOTAL 0.5 mg/dL (0.2-1); TOT PROT 7.4 g/dl (6.4-8.2)
[2022-02-09 14:19] LABS: ALBUMIN 2.2 g/dl (3.4-5.0)
[2022-02-09 14:47] LABS: ANISOCYTOSIS 2+; MACROCYTOSIS 0
[2022-02-09] MEDS: ATORVASTATIN CA 40 MG TABLET (FP) GT SCH (21:27)
[2022-02-10] MEDS: NYSTATIN 500,000 UNITS/5 ML SUSPENSION PO SCH ×4 (04:10→21:28)
[2022-02-10] MEDS: BANATROL PLUS POWDER PACKET GT SCH ×3 (06:10→21:28)
[2022-02-10] MEDS: levETIRAcetam 500 MG/5 ML ORAL SOLUTION (UNIT-DOSE CUPS) GT SCH ×2 (06:10→19:29)
[2022-02-10] MEDS: LACTOBACILLUS ACIDOPHILUS 1 TABLET GT SCH ×3 (06:10→21:28)
[2022-02-10] MEDS ORDERED: MEROPENEM 500 MG VIAL (RESTRICTED TO ID) IVPB ONE (08:36)
[2022-02-10] MEDS ORDERED: DEXTROSE 5%-WATER 100 ML IVPB ONE (08:37)
[2022-02-10] MEDS: AMINO ACIDS/PROTEIN HYDROLYS 30 ML LIQUID.PKT GT SCH ×2 (08:49→16:31)
[2022-02-10] MEDS: MULTIVIT-MINERALS ORAL LIQUID GT SCH (10:01)
[2022-02-10] MEDS: CARVEDILOL 3.125 MG TABLET (FP) GT SCH ×2 (10:02→21:28)
[2022-02-10] MEDS: FERROUS SO4 300 MG/5 ML ORAL SOLN UNIT DOSE CUPS GT SCH ×2 (10:02→21:28)
[2022-02-10] MEDS: ZINC SULFATE 220 MG CAPSULE (FP) GT SCH (10:02)
[2022-02-10] MEDS: PANTOPRAZOLE SODIUM 40 MG VIAL IVPUSH SCH (10:03)
[2022-02-10] MEDS: MIDODRINE HCL 5 MG TABLET PEG SCH ×4 (10:03→18:09)
[2022-02-10] MEDS: MEROPENEM 500 MG in DEXTROSE 5%-WATER 100 ML IVPB SCH (10:03)
[2022-02-10] MEDS: ZINC OXIDE 20% TOPICAL OINTMENT 30 GM TUBE TP SCH (10:04)
[2022-02-10] MEDS ORDERED: VANCOMYCIN/WATER FOR INJ (PEG) 1,000 MG/200 ML BAG IVPB ONE (10:57)
[2022-02-10] MEDS ORDERED: LIDOCAINE HCL 1%, 10 MG/ML (20ML VIAL) ONE (18:00)
[2022-02-10] MEDS ORDERED: LIDOCAINE HCL 1%, 10 MG/ML (20ML VIAL) NR ONE (18:28)
[2022-02-10] MEDS: ATORVASTATIN CA 40 MG TABLET (FP) GT SCH (21:28)
[2022-02-11] MEDS: NYSTATIN 500,000 UNITS/5 ML SUSPENSION PO SCH ×4 (05:02→21:35)
[2022-02-11] MEDS: BANATROL PLUS POWDER PACKET GT SCH ×3 (05:02→21:35)
[2022-02-11] MEDS: levETIRAcetam 500 MG/5 ML ORAL SOLUTION (UNIT-DOSE CUPS) GT SCH (05:02)
[2022-02-11] MEDS: LACTOBACILLUS ACIDOPHILUS 1 TABLET GT SCH ×3 (05:02→21:35)
[2022-02-11] MEDS: AMINO ACIDS/PROTEIN HYDROLYS 30 ML LIQUID.PKT GT SCH ×2 (08:25→18:13)
[2022-02-11] MEDS ORDERED: SODIUM CHLORIDE 250 ML IV PRN (09:13)
[2022-02-11] MEDS ORDERED: EPOETIN ALFA-EPBX 10,000 UNIT/ML VIAL IVPUSH ONE (09:30)
[2022-02-11] MEDS ORDERED: MEROPENEM 500 MG VIAL (RESTRICTED TO ID) IVPB ONE (09:33)
[2022-02-11] MEDS ORDERED: DEXTROSE 5%-WATER 100 ML IVPB ONE (09:34)
[2022-02-11 10:15] LABS: HEMATOCRIT 29.1 % (35.4-49); MCH 26.1 pg (25.7-33.7); MCHC 30.9 g/dl (32.0-35.9); MEAN CELL VOLUME 84.6 fl (80-96); MEAN PLT VOLUME 7.7 fl (7.5-11.1); PLATELET COUNT 326 10^3/uL (134-434); RBC 3.44 M/mm3 (4.00-5.60); RDW 17.5 % (11.9-15.9); WHITE BLOOD COUNT 12.5 K/mm3 (4.0-10.0)
[2022-02-11] MEDS: FERROUS SO4 300 MG/5 ML ORAL SOLN UNIT DOSE CUPS GT SCH ×2 (10:23→21:35)
[2022-02-11] MEDS: MEROPENEM 500 MG in DEXTROSE 5%-WATER 100 ML IVPB SCH (10:25)
[2022-02-11] MEDS: ZINC SULFATE 220 MG CAPSULE (FP) GT SCH (10:25)
[2022-02-11] MEDS: CARVEDILOL 3.125 MG TABLET (FP) GT SCH ×2 (10:25→21:35)
[2022-02-11] MEDS: MULTIVIT-MINERALS ORAL LIQUID GT SCH (10:25)
[2022-02-11] MEDS: PANTOPRAZOLE SODIUM 40 MG VIAL IVPUSH SCH (10:25)
[2022-02-11] MEDS: MIDODRINE HCL 5 MG TABLET PEG SCH ×3 (10:26→18:14)
[2022-02-11] MEDS: ZINC OXIDE 20% TOPICAL OINTMENT 30 GM TUBE TP SCH (10:26)
[2022-02-11 10:51] LABS: CALCIUM 9.7 mg/dL (8.5-10.1)
[2022-02-11 10:52] LABS: BLOOD UREA NITROGEN 65.7 mg/dL (7-18)
[2022-02-11 10:55] LABS: CREATININE 4.3 mg/dL (0.55-1.3)
[2022-02-11 16:26] LABS: SARS-CoV-2 NAA Not Detected (Not Detected)
[2022-02-11] MEDS: ATORVASTATIN CA 40 MG TABLET (FP) GT SCH (21:35)
[2022-02-12] MEDS: LACTOBACILLUS ACIDOPHILUS 1 TABLET GT SCH ×3 (06:18→21:12)
[2022-02-12] MEDS: BANATROL PLUS POWDER PACKET GT SCH ×3 (06:18→21:12)
[2022-02-12] MEDS: levETIRAcetam 500 MG/5 ML ORAL SOLUTION (UNIT-DOSE CUPS) GT SCH ×2 (06:18→17:40)
[2022-02-12] MEDS: NYSTATIN 500,000 UNITS/5 ML SUSPENSION PO SCH ×4 (06:18→22:23)
[2022-02-12] MEDS ORDERED: VANCOMYCIN/WATER FOR INJ (PEG) 1,000 MG/200 ML BAG IVPB ONE (08:45)
[2022-02-12] MEDS ORDERED: MEROPENEM 500 MG VIAL (RESTRICTED TO ID) IVPB ONE (09:25)
[2022-02-12] MEDS ORDERED: DEXTROSE 5%-WATER 100 ML IVPB ONE (09:25)
[2022-02-12] MEDS: AMINO ACIDS/PROTEIN HYDROLYS 30 ML LIQUID.PKT GT SCH ×2 (09:40→17:39)
[2022-02-12] MEDS: MEROPENEM 500 MG in DEXTROSE 5%-WATER 100 ML IVPB SCH (09:59)
[2022-02-12] MEDS: PANTOPRAZOLE SODIUM 40 MG VIAL IVPUSH SCH (09:59)
[2022-02-12] MEDS: CARVEDILOL 3.125 MG TABLET (FP) GT SCH ×2 (10:00→21:12)
[2022-02-12] MEDS: MULTIVIT-MINERALS ORAL LIQUID GT SCH (10:00)
[2022-02-12] MEDS: ZINC SULFATE 220 MG CAPSULE (FP) GT SCH (10:00)
[2022-02-12] MEDS: FERROUS SO4 300 MG/5 ML ORAL SOLN UNIT DOSE CUPS GT SCH ×2 (10:00→21:12)
[2022-02-12] MEDS: ZINC OXIDE 20% TOPICAL OINTMENT 30 GM TUBE TP SCH (10:01)
[2022-02-12] MEDS: MIDODRINE HCL 5 MG TABLET PEG SCH ×3 (10:01→17:40)
[2022-02-12] MEDS: ATORVASTATIN CA 40 MG TABLET (FP) GT SCH (21:12)
[2022-02-13] MEDS: NYSTATIN 500,000 UNITS/5 ML SUSPENSION PO SCH ×2 (04:23→11:03)
[2022-02-13] MEDS: levETIRAcetam 500 MG/5 ML ORAL SOLUTION (UNIT-DOSE CUPS) GT SCH (05:22)
[2022-02-13] MEDS: LACTOBACILLUS ACIDOPHILUS 1 TABLET GT SCH (05:22)
[2022-02-13] MEDS: BANATROL PLUS POWDER PACKET GT SCH (05:22)
[2022-02-13] MEDS ORDERED: SODIUM CHLORIDE 250 ML IV PRN (06:57)
[2022-02-13] MEDS ORDERED: EPOETIN ALFA-EPBX 10,000 UNIT/ML VIAL SQ ONE (08:00)
[2022-02-13] MEDS ORDERED: DEXTROSE 5%-WATER 100 ML IVPB ONE (09:29)
[2022-02-13] MEDS ORDERED: MEROPENEM 500 MG VIAL (RESTRICTED TO ID) IVPB ONE (09:29)
[2022-02-13] MEDS: AMINO ACIDS/PROTEIN HYDROLYS 30 ML LIQUID.PKT GT SCH (11:02)
[2022-02-13] MEDS: MULTIVIT-MINERALS ORAL LIQUID GT SCH (11:02)
[2022-02-13] MEDS: PANTOPRAZOLE SODIUM 40 MG VIAL IVPUSH SCH (11:03)
[2022-02-13] MEDS: CARVEDILOL 3.125 MG TABLET (FP) GT SCH (11:03)
[2022-02-13] MEDS: ZINC OXIDE 20% TOPICAL OINTMENT 30 GM TUBE TP SCH (11:03)
[2022-02-13] MEDS: MIDODRINE HCL 5 MG TABLET PEG SCH (11:03)
[2022-02-13] MEDS: FERROUS SO4 300 MG/5 ML ORAL SOLN UNIT DOSE CUPS GT SCH (11:03)
[2022-02-13] MEDS: ZINC SULFATE 220 MG CAPSULE (FP) GT SCH (11:03)
[2022-02-13] MEDS: MEROPENEM 500 MG in DEXTROSE 5%-WATER 100 ML IVPB SCH (11:03)
[2022-02-13 12:18] VITALS: BP 153/90; PULSE 80; TEMP 98.7
== END 2022-02-13 13:24 | DRG 710 ==
LOC: JER 10:42 → JERBED 15:40 → J2W 01-10 03:15
PROVIDERS: ADMIT Internal Medicine; ATTEND Family Medicine
PROC: 5A1955Z Respiratory Ventilation, Greater than 96 Consecutive Hours (ICD-10-PCS; principal; 2022-01-09)
PROC: 5A1D70Z Performance of Urinary Filtration, Intermittent, Less than 6 Hours Per Day (ICD-10-PCS; 2022-01-09)
PROC: 30233N1 Transfusion of Nonautologous Red Blood Cells into Peripheral Vein, Percutaneous Approach (ICD-10-PCS; 2022-01-09)
PROC: 5A1D70Z Performance of Urinary Filtration, Intermittent, Less than 6 Hours Per Day (ICD-10-PCS; 2022-02-01)
PROC: 5A1D70Z Performance of Urinary Filtration, Intermittent, Less than 6 Hours Per Day (ICD-10-PCS; 2022-02-04)
PROC: 5A1D70Z Performance of Urinary Filtration, Intermittent, Less than 6 Hours Per Day (ICD-10-PCS; 2022-02-06)
PROC: 5A1D70Z Performance of Urinary Filtration, Intermittent, Less than 6 Hours Per Day (ICD-10-PCS; 2022-02-08)
PROC: 05PY33Z Removal of Infusion Device from Upper Vein, Percutaneous Approach (ICD-10-PCS; 2022-02-10)
PROC: 02HV33Z Insertion of Infusion Device into Superior Vena Cava, Percutaneous Approach (ICD-10-PCS; 2022-02-10)
PROC: 5A1D70Z Performance of Urinary Filtration, Intermittent, Less than 6 Hours Per Day (ICD-10-PCS; 2022-02-11)
PROC: 02HV33Z Insertion of Infusion Device into Superior Vena Cava, Percutaneous Approach (ICD-10-PCS; 2022-02-11)
PROC: B518ZZA Fluoroscopy of Superior Vena Cava, Guidance (ICD-10-PCS; 2022-02-11)
PROC: 5A1D70Z Performance of Urinary Filtration, Intermittent, Less than 6 Hours Per Day (ICD-10-PCS; 2022-02-13)
DX: A41.89 Other specified sepsis (principal); G89.29 Other chronic pain; G40.909 Epilepsy, unspecified, not intractable, without status epilepticus; E87.2 Acidosis; L89.013 Pressure ulcer of right elbow, stage 3; D63.1 Anemia in chronic kidney disease; L98.499 Non-pressure chronic ulcer of skin of other sites with unspecified severity; L89.154 Pressure ulcer of sacral region, stage 4; K21.9 Gastro-esophageal reflux disease without esophagitis; E78.5 Hyperlipidemia, unspecified; J96.11 Chronic respiratory failure with hypoxia; I12.0 Hypertensive chronic kidney disease with stage 5 chronic kidney disease or end stage renal disease; N18.6 End stage renal disease; F03.90 Unspecified dementia, unspecified severity, without behavioral disturbance, psychotic disturbance, mood disturbance, and anxiety; N39.0 Urinary tract infection, site not specified; R93.5 Abnormal findings on diagnostic imaging of other abdominal regions, including retroperitoneum; N20.0 Calculus of kidney; I95.9 Hypotension, unspecified; R13.19 Other dysphagia; Z66 Do not resuscitate; M17.12 Unilateral primary osteoarthritis, left knee; R89.9 Unspecified abnormal finding in specimens from other organs, systems and tissues; B95.2 Enterococcus as the cause of diseases classified elsewhere; I99.8 Other disorder of circulatory system; T82.524A Displacement of infusion catheter, initial encounter; Z93.1 Gastrostomy status; Z93.0 Tracheostomy status; Z99.81 Dependence on supplemental oxygen; Z86.73 Personal history of transient ischemic attack (TIA), and cerebral infarction without residual deficits; Z16.24 Resistance to multiple antibiotics; Y84.8 Other medical procedures as the cause of abnormal reaction of the patient, or of later complication, without mention of misadventure at the time of the procedure
CPT/HCPCS: 36415; 36430; 36569; 71045-TC-FY; 73590-TC-RT-FY; 74176-TC; 76000-TC-FY; 80048; 80053; 81003; 82272; 82728; 82803; 82962; 83540; 83550; 83605; 83735; 84100; 84484; 85025; 85027; 85610; 85730; 86803; 86850; 86900; 86901; 86922; 87040; 87086; 87186; 87324; 87340; 87449; 93005; 93010; 93926-TC; 94002; 94640; 99285-25; C9803-CS; G0480; J1644; P9047; P9058; Q5106; U0003; U0005

== ENCOUNTER 2022-02-22 01:07 | Observation (INO) | payer OTHER ==
[2022-02-22 02:12] LABS: BASO % 0.4 % (0-2.0); EOS % 18.9 % (0-4.5); HEMATOCRIT 30.2 % (35.4-49); HEMOGLOBIN 9.4 GM/dL (11.7-16.9); LYMPH % 18.9 % (8-40); MCH 25.9 pg (25.7-33.7); MCHC 31.2 g/dl (32.0-35.9); MEAN CELL VOLUME 82.8 fl (80-96); MEAN PLT VOLUME 7.4 fl (7.5-11.1); MONO % 6.3 % (3.8-10.2); NEUT % 55.5 % (42.8-82.8); PLATELET COUNT 295 10^3/uL (134-434); RBC 3.65 M/mm3 (4.00-5.60); RDW 17.5 % (11.9-15.9); WHITE BLOOD COUNT 11.4 K/mm3 (4.0-10.0)
[2022-02-22 02:33] LABS: ALBUMIN 2.6 g/dl (3.4-5.0); BLOOD UREA NITROGEN 72.1 mg/dL (7-18); CALCIUM 10.2 mg/dL (8.5-10.1); MAGNESIUM 2.6 mg/dL (1.8-2.4)
[2022-02-22 02:35] LABS: CREATININE 4.8 mg/dL (0.55-1.3); PHOSPHOROUS 4.9 mg/dL (2.5-4.9)
[2022-02-22 02:38] LABS: BILIRUBIN,TOTAL 0.7 mg/dL (0.2-1); TOT PROT 8.4 g/dl (6.4-8.2)
[2022-02-22 02:41] LABS: INR 1.16 (0.83-1.09); PROTHROMBIN TIME (PATIENT) 13.4 SEC (9.7-13.0)
[2022-02-22 02:43] LABS: ACTIVATED PTT 39.7 SECONDS (25.2-36.5)
[2022-02-22] MEDS ORDERED: HEPARIN NA (PORCINE) 5,000 UNITS/ML 1ML VIAL ONE (09:48)
[2022-02-22] MEDS ORDERED: levETIRAcetam 500 MG/5 ML INJECTION VIAL IVPB ONE (09:48)
[2022-02-22] MEDS: levETIRAcetam 500 MG/5 ML INJECTION VIAL IVPB SCH (10:25)
[2022-02-22] MEDS: HEPARIN NA (PORCINE) 5,000 UNITS/ML 1ML VIAL SQ SCH ×2 (10:25→21:59)
[2022-02-22] MEDS: SODIUM CHLORIDE 1,000 ML IV SCH ×2 (11:30→20:28)
[2022-02-22] MEDS ORDERED: SODIUM CHLORIDE 250 ML IV PRN (14:02)
[2022-02-22] MEDS: ALBUMIN HUMAN 25% 12.5 GM/50 ML VIAL IV SCH ×2 (16:58→18:21)
[2022-02-23] MEDS: SODIUM CHLORIDE 1,000 ML IV SCH ×2 (09:36→15:31)
[2022-02-23] MEDS: levETIRAcetam 500 MG/5 ML INJECTION VIAL IVPB SCH (09:36)
[2022-02-23] MEDS: HEPARIN NA (PORCINE) 5,000 UNITS/ML 1ML VIAL SQ SCH ×2 (09:36→22:51)
[2022-02-23] MEDS: ALBUTEROL SO4 2.5/IPRATROPIUM 0.5 INH SOL 3 ML VIAL.NEB. NEB SCH ×2 (15:19→20:36)
[2022-02-23] MEDS: DEXTROSE 5%-0.45% SALINE 1,000 ML IV SCH (15:32)
[2022-02-24] MEDS: DEXTROSE 5%-0.45% SALINE 1,000 ML IV SCH ×2 (05:16→19:24)
[2022-02-24] MEDS ORDERED: SODIUM CHLORIDE 250 ML IV PRN (07:00)
[2022-02-24] MEDS ORDERED: EPOETIN ALFA-EPBX 10,000 UNIT/ML VIAL SQ ONE (07:00)
[2022-02-24] MEDS: ALBUTEROL SO4 2.5/IPRATROPIUM 0.5 INH SOL 3 ML VIAL.NEB. NEB SCH ×4 (07:41→20:10)
[2022-02-24 09:46] LABS: BASO % 0.5 % (0-2.0); EOS % 15.9 % (0-4.5); HEMATOCRIT 26.1 % (35.4-49); HEMOGLOBIN 8.3 GM/dL (11.7-16.9); LYMPH % 21.7 % (8-40); MCH 26.5 pg (25.7-33.7); MEAN CELL VOLUME 83.1 fl (80-96); MEAN PLT VOLUME 7.3 fl (7.5-11.1); MONO % 6.7 % (3.8-10.2); NEUT % 55.2 % (42.8-82.8); PLATELET COUNT 286 10^3/uL (134-434); RBC 3.14 M/mm3 (4.00-5.60); RDW 17.3 % (11.9-15.9); WHITE BLOOD COUNT 6.8 K/mm3 (4.0-10.0)
[2022-02-24 10:19] LABS: CALCIUM 9.4 mg/dL (8.5-10.1)
[2022-02-24 10:22] LABS: CREATININE 3.8 mg/dL (0.55-1.3)
[2022-02-24 10:25] LABS: BLOOD UREA NITROGEN 41.9 mg/dL (7-18)
[2022-02-24 14:05] VITALS: BMI 37.5
[2022-02-24] MEDS: ALBUMIN HUMAN 25% 12.5 GM/50 ML VIAL IV SCH ×2 (19:26→19:27)
[2022-02-24] MEDS: levETIRAcetam 500 MG/5 ML INJECTION VIAL IVPB SCH (19:27)
[2022-02-24] MEDS: HEPARIN NA (PORCINE) 5,000 UNITS/ML 1ML VIAL SQ SCH ×2 (19:27→23:45)
[2022-02-24] MEDS: AMINO ACIDS/PROTEIN HYDROLYS 30 ML LIQUID.PKT GT SCH (19:28)
[2022-02-24] MEDS ORDERED: levETIRAcetam 500 MG/5 ML INJECTION VIAL IVPB SCH (22:00)
[2022-02-25 06:45] VITALS: TEMP 98.2
[2022-02-25] MEDS: DEXTROSE 5%-0.45% SALINE 1,000 ML IV SCH (08:09)
[2022-02-25] MEDS: ALBUTEROL SO4 2.5/IPRATROPIUM 0.5 INH SOL 3 ML VIAL.NEB. NEB SCH ×2 (08:15→11:15)
[2022-02-25] MEDS: AMINO ACIDS/PROTEIN HYDROLYS 30 ML LIQUID.PKT GT SCH (11:09)
[2022-02-25] MEDS: HEPARIN NA (PORCINE) 5,000 UNITS/ML 1ML VIAL SQ SCH (11:09)
[2022-02-25] MEDS: levETIRAcetam 500 MG/5 ML INJECTION VIAL IVPB SCH (11:12)
[2022-02-25 13:58] VITALS: BP 133/69; PULSE 98
== END 2022-02-25 13:50 ==
LOC: JER 01:07 → JERBED 01:12 → J5S 15:49
PROVIDERS: ADMIT Internal Medicine
PROC: 0DW63UZ Revision of Feeding Device in Stomach, Percutaneous Approach (ICD-10-PCS; principal; 2022-02-22)
PROC: 3E0F7GC Introduction of Other Therapeutic Substance into Respiratory Tract, Via Natural or Artificial Opening (ICD-10-PCS; 2022-02-22)
PROC: 3E033GC Introduction of Other Therapeutic Substance into Peripheral Vein, Percutaneous Approach (ICD-10-PCS; 2022-02-22)
PROC: 3E023GC Introduction of Other Therapeutic Substance into Muscle, Percutaneous Approach (ICD-10-PCS; 2022-02-22)
PROC: 3E033GC Introduction of Other Therapeutic Substance into Peripheral Vein, Percutaneous Approach (ICD-10-PCS; 2022-02-22)
DX: I12.0 Hypertensive chronic kidney disease with stage 5 chronic kidney disease or end stage renal disease (principal); Z99.11 Dependence on respirator [ventilator] status; K21.9 Gastro-esophageal reflux disease without esophagitis; Z86.73 Personal history of transient ischemic attack (TIA), and cerebral infarction without residual deficits; L89.159 Pressure ulcer of sacral region, unspecified stage; E78.5 Hyperlipidemia, unspecified; Z43.1 Encounter for attention to gastrostomy; G93.1 Anoxic brain damage, not elsewhere classified; E66.9 Obesity, unspecified; Z68.37 Body mass index [BMI] 37.0-37.9, adult; N18.6 End stage renal disease; Z99.2 Dependence on renal dialysis; R56.9 Unspecified convulsions
CPT/HCPCS: 36415; 49440; 71045-TC-FY; 80048; 80053; 80177; 83735; 84100; 85025; 85610; 85730; 86803; 86850; 86900; 86901; 87081; 87186; 87340; 93005; 93010; 94002; 94640; 99285-25; C1769; C1887; C9803-CS; G0378; J1644; P9047; Q5106; U0003; U0005

== ENCOUNTER 2022-03-20 12:48 | Inpatient (IN) | payer OTHER ==
[2022-03-20 13:33] VITALS: BMI 28.7
[2022-03-20] MEDS ORDERED: ALTEPLASE (CATHFLO) 2 MG/2 ML VIAL IVPUSH ONE (15:07)
[2022-03-20 15:29] LABS: BASO % 0.5 % (0-2.0); EOS % 14.4 % (0-4.5); HEMATOCRIT 23.6 % (35.4-49); HEMOGLOBIN 7.5 GM/dL (11.7-16.9); LYMPH % 16.9 % (8-40); MCH 25.6 pg (25.7-33.7); MCHC 31.8 g/dl (32.0-35.9); MEAN CELL VOLUME 80.5 fl (80-96); MEAN PLT VOLUME 6.4 fl (7.5-11.1); MONO % 8.4 % (3.8-10.2); NEUT % 59.8 % (42.8-82.8); PLATELET COUNT 387 10^3/uL (134-434); RBC 2.93 M/mm3 (4.00-5.60); WHITE BLOOD COUNT 9.8 K/mm3 (4.0-10.0)
[2022-03-20 15:31] LABS: INR 1.06 (0.83-1.09); PROTHROMBIN TIME (PATIENT) 12.2 SEC (9.7-13.0)
[2022-03-20 15:42] LABS: CALCIUM 10.1 mg/dL (8.5-10.1)
[2022-03-20 15:43] LABS: ALBUMIN 2.5 g/dl (3.4-5.0); BLOOD UREA NITROGEN 60.1 mg/dL (7-18)
[2022-03-20 15:46] LABS: CREATININE 4.6 mg/dL (0.55-1.3)
[2022-03-20 15:47] LABS: TOT PROT 7.7 g/dl (6.4-8.2)
[2022-03-20 15:49] LABS: BILIRUBIN,TOTAL 0.7 mg/dL (0.2-1)
[2022-03-20] MEDS ORDERED: SODIUM CHLORIDE 250 ML IV PRN (19:21)
[2022-03-21] MEDS: ATORVASTATIN CA 40 MG TABLET (FP) GT SCH ×2 (01:05→21:06)
[2022-03-21] MEDS: MIDODRINE HCL 5 MG TABLET PEG SCH ×4 (01:05→17:35)
[2022-03-21] MEDS: CARVEDILOL 3.125 MG TABLET (FP) GT SCH ×3 (01:05→21:05)
[2022-03-21 11:14] LABS: BASO % 1.1 % (0-2.0); EOS % 9.9 % (0-4.5); HEMOGLOBIN 8.4 GM/dL (11.7-16.9); LYMPH % 17.1 % (8-40); MCH 24.9 pg (25.7-33.7); MCHC 31.1 g/dl (32.0-35.9); MONO % 8.1 % (3.8-10.2); NEUT % 63.8 % (42.8-82.8); PLATELET COUNT 360 10^3/uL (134-434); RBC 3.38 M/mm3 (4.00-5.60); RDW 17.2 % (11.9-15.9); WHITE BLOOD COUNT 9.2 K/mm3 (4.0-10.0)
[2022-03-21 11:39] LABS: CALCIUM 10.4 mg/dL (8.5-10.1)
[2022-03-21 11:40] LABS: ALBUMIN 2.7 g/dl (3.4-5.0); BLOOD UREA NITROGEN 66.4 mg/dL (7-18); MAGNESIUM 3.1 mg/dL (1.8-2.4)
[2022-03-21 11:43] LABS: CREATININE 5.5 mg/dL (0.55-1.3); PHOSPHOROUS 2.6 mg/dL (2.5-4.9)
[2022-03-21 11:44] LABS: BILIRUBIN,TOTAL 0.8 mg/dL (0.2-1); TOT PROT 8.2 g/dl (6.4-8.2)
[2022-03-21] MEDS: CEFTAZIDIME/AVIBACTAM 0.94 GM in DEXTROSE 5%-WATER - 100 ML IVPB SCH ×2 (12:24→22:56)
[2022-03-21] MEDS ORDERED: VANCOMYCIN 1 GM in D5W (PRE-DOCKED) 1,000 MG/250 ML IVPB ONE (12:30)
[2022-03-21] MEDS ORDERED: EPOETIN ALFA-EPBX 10,000 UNIT/ML VIAL IVPUSH ONE (17:00)
[2022-03-21] MEDS: levETIRAcetam 500 MG/5 ML ORAL SOLUTION (UNIT-DOSE CUPS) PO SCH (17:28)
[2022-03-21] MEDS ORDERED: ACETAMINOPHEN 1000 MG/100 ML BAG IVPB PRN (17:53)
[2022-03-21] MEDS ORDERED: PIPERACILLIN/TAZOB 2.25 GM 2.25 GM in DEXTROSE 5%-WATER - 50 ML IVPB SCH (22:00)
[2022-03-22] MEDS: CARVEDILOL 3.125 MG TABLET (FP) GT SCH ×2 (10:13→21:52)
[2022-03-22] MEDS: MIDODRINE HCL 5 MG TABLET PEG SCH ×4 (10:13→17:48)
[2022-03-22] MEDS: CEFTAZIDIME/AVIBACTAM 0.94 GM in DEXTROSE 5%-WATER - 100 ML IVPB SCH ×2 (11:24→22:59)
[2022-03-22] MEDS: ATORVASTATIN CA 40 MG TABLET (FP) GT SCH (21:52)
[2022-03-23] MEDS: CARVEDILOL 3.125 MG TABLET (FP) GT SCH ×2 (09:56→22:18)
[2022-03-23] MEDS: MIDODRINE HCL 5 MG TABLET PEG SCH ×3 (09:56→17:46)
[2022-03-23] MEDS: CEFTAZIDIME/AVIBACTAM 0.94 GM in DEXTROSE 5%-WATER - 100 ML IVPB SCH ×2 (12:02→22:19)
[2022-03-23] MEDS ORDERED: SODIUM CHLORIDE 250 ML IV PRN (17:34)
[2022-03-23] MEDS: ATORVASTATIN CA 40 MG TABLET (FP) GT SCH (22:18)
[2022-03-24] MEDS ORDERED: EPOETIN ALFA-EPBX 10,000 UNIT/ML VIAL SQ ONE (08:15)
[2022-03-24 10:28] LABS: BASO % 0.3 % (0-2.0); HEMATOCRIT 24.9 % (35.4-49); HEMOGLOBIN 7.9 GM/dL (11.7-16.9); MCH 25.4 pg (25.7-33.7); MCHC 31.8 g/dl (32.0-35.9); MEAN CELL VOLUME 79.8 fl (80-96); MEAN PLT VOLUME 6.7 fl (7.5-11.1); MONO % 4.3 % (3.8-10.2); NEUT % 81.4 % (42.8-82.8); PLATELET COUNT 324 10^3/uL (134-434); RBC 3.13 M/mm3 (4.00-5.60); RDW 16.9 % (11.9-15.9); WHITE BLOOD COUNT 11.8 K/mm3 (4.0-10.0)
[2022-03-24] MEDS: MIDODRINE HCL 5 MG TABLET PEG SCH ×3 (11:41→18:16)
[2022-03-24] MEDS: CEFTAZIDIME/AVIBACTAM 0.94 GM in DEXTROSE 5%-WATER - 100 ML IVPB SCH ×2 (11:42→23:06)
[2022-03-24] MEDS: CARVEDILOL 3.125 MG TABLET (FP) GT SCH ×2 (14:04→23:16)
[2022-03-24] MEDS: levETIRAcetam 500 MG/5 ML ORAL SOLUTION (UNIT-DOSE CUPS) PO SCH (18:03)
[2022-03-24] MEDS ORDERED: GENTAMICIN 80 MG PREMIXED IVPB 80 MG/100 ML BAG IVPB ONE (18:55)
[2022-03-24] MEDS: ATORVASTATIN CA 40 MG TABLET (FP) GT SCH (23:16)
[2022-03-25] MEDS ORDERED: EPOETIN ALFA-EPBX 10,000 UNIT/ML VIAL IVPUSH ONE (09:00)
[2022-03-25 10:20] LABS: BASO % 0.4 % (0-2.0); EOS % 2.4 % (0-4.5); HEMATOCRIT 25.6 % (35.4-49); LYMPH % 14.5 % (8-40); MCH 25.2 pg (25.7-33.7); MCHC 31.4 g/dl (32.0-35.9); MEAN CELL VOLUME 80.2 fl (80-96); MEAN PLT VOLUME 6.6 fl (7.5-11.1); MONO % 7.5 % (3.8-10.2); NEUT % 75.2 % (42.8-82.8); PLATELET COUNT 359 10^3/uL (134-434); RDW 16.9 % (11.9-15.9); WHITE BLOOD COUNT 14.2 K/mm3 (4.0-10.0)
[2022-03-25] MEDS ORDERED: POTASSIUM CHLORIDE ORAL LIQUID 20 MEQ/15 ML GT ONE (10:43)
[2022-03-25 10:45] LABS: CALCIUM 10.2 mg/dL (8.5-10.1); MAGNESIUM 2.4 mg/dL (1.8-2.4)
[2022-03-25 10:46] LABS: CREATININE 3.8 mg/dL (0.55-1.3); PHOSPHOROUS 1.6 mg/dL (2.5-4.9)
[2022-03-25 10:54] LABS: BLOOD UREA NITROGEN 35.6 mg/dL (7-18)
[2022-03-25] MEDS ORDERED: POTASSIUM PHOSPHATE 30 MM in SODIUM CHLORIDE 500 ML IVPB ONE (12:11)
[2022-03-25] MEDS: CEFTAZIDIME/AVIBACTAM 0.94 GM in DEXTROSE 5%-WATER - 100 ML IVPB SCH ×2 (12:35→22:00)
[2022-03-25] MEDS: CARVEDILOL 3.125 MG TABLET (FP) GT SCH ×2 (12:45→22:01)
[2022-03-25] MEDS: MIDODRINE HCL 5 MG TABLET PEG SCH ×3 (12:58→19:07)
[2022-03-25] MEDS: HEPARIN NA (PORCINE) 5,000 UNITS/ML 1ML VIAL SQ SCH ×2 (16:17→22:02)
[2022-03-25] MEDS ORDERED: ACETAMINOPHEN 1000 MG/100 ML BAG IVPB PRN (18:22)
[2022-03-25] MEDS ORDERED: TRIMETHOBENZAMIDE HCL 200MG/2ML INJ IM PRN (18:22)
[2022-03-25] MEDS: ALBUTEROL SO4 2.5/IPRATROPIUM 0.5 INH SOL 3 ML VIAL.NEB. NEB PRN (20:15)
[2022-03-25] MEDS: ATORVASTATIN CA 40 MG TABLET (FP) GT SCH (22:02)
[2022-03-26] MEDS: HEPARIN NA (PORCINE) 5,000 UNITS/ML 1ML VIAL SQ SCH ×3 (05:15→21:08)
[2022-03-26] MEDS ORDERED: SODIUM CHLORIDE 250 ML IV PRN (07:15)
[2022-03-26] MEDS ORDERED: EPOETIN ALFA-EPBX 10,000 UNIT/ML VIAL IVPUSH ONE (09:00)
[2022-03-26 09:07] LABS: BASO % 0.8 % (0-2.0); EOS % 4.6 % (0-4.5); HEMATOCRIT 25.9 % (35.4-49); LYMPH % 14.4 % (8-40); MCH 24.7 pg (25.7-33.7); MCHC 30.8 g/dl (32.0-35.9); MEAN CELL VOLUME 80.4 fl (80-96); MEAN PLT VOLUME 7.1 fl (7.5-11.1); MONO % 4.9 % (3.8-10.2); NEUT % 75.3 % (42.8-82.8); PLATELET COUNT 406 10^3/uL (134-434); RBC 3.22 M/mm3 (4.00-5.60); RDW 16.8 % (11.9-15.9); WHITE BLOOD COUNT 12.2 K/mm3 (4.0-10.0)
[2022-03-26 09:44] LABS: CALCIUM 10.1 mg/dL (8.5-10.1)
[2022-03-26 09:45] LABS: ALBUMIN 2.4 g/dl (3.4-5.0); BLOOD UREA NITROGEN 46.2 mg/dL (7-18); MAGNESIUM 2.6 mg/dL (1.8-2.4)
[2022-03-26 09:48] LABS: CREATININE 4.4 mg/dL (0.55-1.3); PHOSPHOROUS 3.5 mg/dL (2.5-4.9)
[2022-03-26 09:49] LABS: BILIRUBIN,TOTAL 0.5 mg/dL (0.2-1)
[2022-03-26 09:50] LABS: TOT PROT 8.1 g/dl (6.4-8.2)
[2022-03-26] MEDS: MIDODRINE HCL 5 MG TABLET PEG SCH ×3 (12:45→19:43)
[2022-03-26] MEDS: CARVEDILOL 3.125 MG TABLET (FP) GT SCH ×2 (12:45→21:08)
[2022-03-26] MEDS: CEFTAZIDIME/AVIBACTAM 0.94 GM in DEXTROSE 5%-WATER - 100 ML IVPB SCH ×2 (12:46→22:19)
[2022-03-26] MEDS ORDERED: GENTAMICIN 80 MG PREMIXED IVPB 80 MG/100 ML BAG IVPB ONE (15:00)
[2022-03-26] MEDS: ALBUTEROL SO4 2.5/IPRATROPIUM 0.5 INH SOL 3 ML VIAL.NEB. NEB PRN (16:15)
[2022-03-26] MEDS: AMINO ACIDS/PROTEIN HYDROLYS 30 ML LIQUID.PKT GT SCH (18:52)
[2022-03-26] MEDS: levETIRAcetam 500 MG/5 ML ORAL SOLUTION (UNIT-DOSE CUPS) GT SCH (18:53)
[2022-03-26] MEDS: BANATROL PLUS POWDER PACKET GT SCH (21:07)
[2022-03-26] MEDS: ATORVASTATIN CA 40 MG TABLET (FP) GT SCH (21:08)
[2022-03-27] MEDS: HEPARIN NA (PORCINE) 5,000 UNITS/ML 1ML VIAL SQ SCH ×3 (05:57→21:51)
[2022-03-27] MEDS ORDERED: CARVEDILOL 6.25 MG TABLET (FP) GT SCH (07:28)
[2022-03-27 08:43] LABS: BASO % 0.6 % (0-2.0); EOS % 5.8 % (0-4.5); HEMATOCRIT 27.6 % (35.4-49); HEMOGLOBIN 8.3 GM/dL (11.7-16.9); LYMPH % 17.4 % (8-40); MCH 24.7 pg (25.7-33.7); MCHC 30.2 g/dl (32.0-35.9); MEAN CELL VOLUME 81.6 fl (80-96); MONO % 6.9 % (3.8-10.2); NEUT % 69.3 % (42.8-82.8); PLATELET COUNT 421 10^3/uL (134-434); RBC 3.38 M/mm3 (4.00-5.60); RDW 17.5 % (11.9-15.9); WHITE BLOOD COUNT 12.3 K/mm3 (4.0-10.0)
[2022-03-27] MEDS: AMINO ACIDS/PROTEIN HYDROLYS 30 ML LIQUID.PKT GT SCH ×3 (09:02→18:09)
[2022-03-27 09:09] LABS: CALCIUM 10.3 mg/dL (8.5-10.1)
[2022-03-27 09:10] LABS: BLOOD UREA NITROGEN 37.4 mg/dL (7-18); MAGNESIUM 2.4 mg/dL (1.8-2.4)
[2022-03-27 09:13] LABS: CREATININE 3.3 mg/dL (0.55-1.3)
[2022-03-27] MEDS: MIDODRINE HCL 5 MG TABLET PEG SCH ×3 (11:01→18:25)
[2022-03-27] MEDS: VITAMIN B COMP W-C 1 EA TABLET (NEPHRO-VITE) GT SCH (11:01)
[2022-03-27] MEDS: CEFTAZIDIME/AVIBACTAM 0.94 GM in DEXTROSE 5%-WATER - 100 ML IVPB SCH ×2 (11:01→22:24)
[2022-03-27] MEDS: BANATROL PLUS POWDER PACKET GT SCH ×2 (11:02→21:51)
[2022-03-27] MEDS: ATORVASTATIN CA 40 MG TABLET (FP) GT SCH (21:51)
[2022-03-27] MEDS: CARVEDILOL 3.125 MG TABLET (FP) GT SCH (21:51)
[2022-03-28] MEDS: HEPARIN NA (PORCINE) 5,000 UNITS/ML 1ML VIAL SQ SCH ×3 (05:39→22:08)
[2022-03-28] MEDS ORDERED: SODIUM CHLORIDE 250 ML IV PRN (07:51)
[2022-03-28] MEDS ORDERED: EPOETIN ALFA-EPBX 10,000 UNIT/ML VIAL SQ ONE (08:00)
[2022-03-28 08:50] LABS: BASO % 0.6 % (0-2.0); EOS % 5.8 % (0-4.5); HEMATOCRIT 25.3 % (35.4-49); HEMOGLOBIN 7.7 GM/dL (11.7-16.9); LYMPH % 18.9 % (8-40); MCH 24.9 pg (25.7-33.7); MCHC 30.6 g/dl (32.0-35.9); MEAN CELL VOLUME 81.4 fl (80-96); MEAN PLT VOLUME 7.2 fl (7.5-11.1); MONO % 5.3 % (3.8-10.2); NEUT % 69.4 % (42.8-82.8); PLATELET COUNT 423 10^3/uL (134-434); RBC 3.11 M/mm3 (4.00-5.60); RDW 17.4 % (11.9-15.9); WHITE BLOOD COUNT 12.2 K/mm3 (4.0-10.0)
[2022-03-28 09:09] LABS: BLOOD UREA NITROGEN 53.6 mg/dL (7-18); MAGNESIUM 2.5 mg/dL (1.8-2.4)
[2022-03-28 09:12] LABS: CREATININE 4.1 mg/dL (0.55-1.3)
[2022-03-28 09:13] LABS: PHOSPHOROUS 3.6 mg/dL (2.5-4.9)
[2022-03-28] MEDS: AMINO ACIDS/PROTEIN HYDROLYS 30 ML LIQUID.PKT GT SCH ×3 (10:49→17:33)
[2022-03-28] MEDS: MIDODRINE HCL 5 MG TABLET PEG SCH ×3 (11:09→17:33)
[2022-03-28] MEDS: CEFTAZIDIME/AVIBACTAM 0.94 GM in DEXTROSE 5%-WATER - 100 ML IVPB SCH ×2 (12:07→22:46)
[2022-03-28] MEDS: CARVEDILOL 3.125 MG TABLET (FP) GT SCH ×2 (12:07→22:07)
[2022-03-28] MEDS: VITAMIN B COMP W-C 1 EA TABLET (NEPHRO-VITE) GT SCH (12:07)
[2022-03-28] MEDS: BANATROL PLUS POWDER PACKET GT SCH ×2 (12:08→22:07)
[2022-03-28] MEDS ORDERED: GENTAMICIN 80 MG PREMIXED IVPB 80 MG/100 ML BAG IVPB ONE (15:15)
[2022-03-28] MEDS: levETIRAcetam 500 MG/5 ML ORAL SOLUTION (UNIT-DOSE CUPS) GT SCH (17:40)
[2022-03-28] MEDS: ATORVASTATIN CA 40 MG TABLET (FP) GT SCH (22:07)
[2022-03-29] MEDS: HEPARIN NA (PORCINE) 5,000 UNITS/ML 1ML VIAL SQ SCH ×3 (05:30→21:50)
[2022-03-29] MEDS: BANATROL PLUS POWDER PACKET GT SCH ×2 (09:38→21:50)
[2022-03-29] MEDS: AMINO ACIDS/PROTEIN HYDROLYS 30 ML LIQUID.PKT GT SCH ×3 (09:38→21:50)
[2022-03-29] MEDS: CARVEDILOL 3.125 MG TABLET (FP) GT SCH ×2 (09:39→21:50)
[2022-03-29] MEDS: VITAMIN B COMP W-C 1 EA TABLET (NEPHRO-VITE) GT SCH (09:39)
[2022-03-29] MEDS: MIDODRINE HCL 5 MG TABLET PEG SCH ×4 (09:39→18:49)
[2022-03-29] MEDS: CEFTAZIDIME/AVIBACTAM 0.94 GM in DEXTROSE 5%-WATER - 100 ML IVPB SCH ×2 (12:05→22:05)
[2022-03-29] MEDS: ATORVASTATIN CA 40 MG TABLET (FP) GT SCH (21:50)
[2022-03-30] MEDS: HEPARIN NA (PORCINE) 5,000 UNITS/ML 1ML VIAL SQ SCH ×3 (06:24→21:21)
[2022-03-30 09:48] LABS: BASO % 0.6 % (0-2.0); EOS % 8.5 % (0-4.5); HEMATOCRIT 27.4 % (35.4-49); HEMOGLOBIN 8.5 GM/dL (11.7-16.9); LYMPH % 20.6 % (8-40); MCH 25.3 pg (25.7-33.7); MEAN CELL VOLUME 81.5 fl (80-96); MONO % 6.6 % (3.8-10.2); NEUT % 63.7 % (42.8-82.8); PLATELET COUNT 416 10^3/uL (134-434); RBC 3.36 M/mm3 (4.00-5.60); RDW 18.3 % (11.9-15.9); WHITE BLOOD COUNT 9.3 K/mm3 (4.0-10.0)
[2022-03-30 10:06] LABS: ALBUMIN 2.5 g/dl (3.4-5.0); CALCIUM 9.9 mg/dL (8.5-10.1)
[2022-03-30 10:07] LABS: BLOOD UREA NITROGEN 55.1 mg/dL (7-18)
[2022-03-30 10:10] LABS: CREATININE 4.1 mg/dL (0.55-1.3)
[2022-03-30 10:11] LABS: BILIRUBIN,TOTAL 0.6 mg/dL (0.2-1); TOT PROT 8.2 g/dl (6.4-8.2)
[2022-03-30] MEDS: CARVEDILOL 3.125 MG TABLET (FP) GT SCH ×2 (10:55→21:21)
[2022-03-30] MEDS: VITAMIN B COMP W-C 1 EA TABLET (NEPHRO-VITE) GT SCH (10:55)
[2022-03-30] MEDS: AMINO ACIDS/PROTEIN HYDROLYS 30 ML LIQUID.PKT GT SCH ×3 (11:00→18:45)
[2022-03-30] MEDS: BANATROL PLUS POWDER PACKET GT SCH ×2 (11:00→21:21)
[2022-03-30] MEDS: MIDODRINE HCL 5 MG TABLET PEG SCH ×3 (11:00→17:14)
[2022-03-30] MEDS: CEFTAZIDIME/AVIBACTAM 0.94 GM in DEXTROSE 5%-WATER - 100 ML IVPB SCH ×2 (11:02→22:36)
[2022-03-30] MEDS ORDERED: EPOETIN ALFA-EPBX 10,000 UNIT/ML VIAL IVPUSH ONE (13:24)
[2022-03-30] MEDS: ATORVASTATIN CA 40 MG TABLET (FP) GT SCH (21:21)
[2022-03-31] MEDS ORDERED: EPOETIN ALFA-EPBX 10,000 UNIT/ML VIAL IVPUSH ONE (06:00)
[2022-03-31] MEDS: HEPARIN NA (PORCINE) 5,000 UNITS/ML 1ML VIAL SQ SCH ×3 (06:03→21:22)
[2022-03-31] MEDS: AMINO ACIDS/PROTEIN HYDROLYS 30 ML LIQUID.PKT GT SCH ×3 (10:27→18:49)
[2022-03-31] MEDS: BANATROL PLUS POWDER PACKET GT SCH ×2 (10:27→21:21)
[2022-03-31] MEDS: MIDODRINE HCL 5 MG TABLET PEG SCH ×3 (10:28→18:49)
[2022-03-31] MEDS: CARVEDILOL 3.125 MG TABLET (FP) GT SCH ×2 (10:29→21:22)
[2022-03-31] MEDS: VITAMIN B COMP W-C 1 EA TABLET (NEPHRO-VITE) GT SCH (10:29)
[2022-03-31] MEDS: CEFTAZIDIME/AVIBACTAM 0.94 GM in DEXTROSE 5%-WATER - 100 ML IVPB SCH ×2 (11:34→22:57)
[2022-03-31 11:36] LABS: BASO % 0.5 % (0-2.0); EOS % 9.4 % (0-4.5); HEMATOCRIT 25.6 % (35.4-49); LYMPH % 21.5 % (8-40); MCH 25.2 pg (25.7-33.7); MCHC 31.5 g/dl (32.0-35.9); MEAN CELL VOLUME 80.2 fl (80-96); MONO % 6.9 % (3.8-10.2); NEUT % 61.7 % (42.8-82.8); PLATELET COUNT 409 10^3/uL (134-434); RBC 3.19 M/mm3 (4.00-5.60); RDW 18.5 % (11.9-15.9); WHITE BLOOD COUNT 8.7 K/mm3 (4.0-10.0)
[2022-03-31 11:49] LABS: CALCIUM 9.2 mg/dL (8.5-10.1); MAGNESIUM 2.6 mg/dL (1.8-2.4)
[2022-03-31 11:50] LABS: BLOOD UREA NITROGEN 66.5 mg/dL (7-18)
[2022-03-31 11:52] LABS: CREATININE 4.8 mg/dL (0.55-1.3); PHOSPHOROUS 4.6 mg/dL (2.5-4.9)
[2022-03-31] MEDS ORDERED: LIDOCAINE HCL 1%, 10 MG/ML (20ML VIAL) ONE (16:49)
[2022-03-31] MEDS ORDERED: fentaNYL 75mcg/hr PATCH.TD72 TD SCH ×3 (18:00→21:00)
[2022-03-31] MEDS ORDERED: FENTANYL PATCH WASTE TD PRN (18:00)
[2022-03-31] MEDS ORDERED: SCOPOLAMINE HYDROBROMIDE 1 PATCH PATCH.TD72 TD SCH (18:15)
[2022-03-31] MEDS: levETIRAcetam 500 MG/5 ML ORAL SOLUTION (UNIT-DOSE CUPS) GT SCH (18:49)
[2022-03-31] MEDS: ATORVASTATIN CA 40 MG TABLET (FP) GT SCH (21:22)
[2022-04-01] MEDS: HEPARIN NA (PORCINE) 5,000 UNITS/ML 1ML VIAL SQ SCH (05:24)
[2022-04-01] MEDS: CARVEDILOL 3.125 MG TABLET (FP) GT SCH ×2 (09:55→22:59)
[2022-04-01] MEDS: AMINO ACIDS/PROTEIN HYDROLYS 30 ML LIQUID.PKT GT SCH ×3 (09:55→17:36)
[2022-04-01] MEDS: VITAMIN B COMP W-C 1 EA TABLET (NEPHRO-VITE) GT SCH (09:55)
[2022-04-01] MEDS: MIDODRINE HCL 5 MG TABLET PEG SCH ×3 (09:58→17:37)
[2022-04-01] MEDS: BANATROL PLUS POWDER PACKET GT SCH ×2 (10:04→22:59)
[2022-04-01 10:57] LABS: BASO % 0.5 % (0-2.0); EOS % 9.3 % (0-4.5); HEMATOCRIT 26.6 % (35.4-49); HEMOGLOBIN 8.5 GM/dL (11.7-16.9); LYMPH % 20.5 % (8-40); MCH 25.5 pg (25.7-33.7); MCHC 31.9 g/dl (32.0-35.9); MEAN CELL VOLUME 79.9 fl (80-96); MEAN PLT VOLUME 6.6 fl (7.5-11.1); MONO % 8.2 % (3.8-10.2); NEUT % 61.5 % (42.8-82.8); PLATELET COUNT 409 10^3/uL (134-434); RBC 3.32 M/mm3 (4.00-5.60); RDW 18.8 % (11.9-15.9); WHITE BLOOD COUNT 8.3 K/mm3 (4.0-10.0)
[2022-04-01 11:34] LABS: ALBUMIN 2.5 g/dl (3.4-5.0); CALCIUM 9.8 mg/dL (8.5-10.1); MAGNESIUM 2.7 mg/dL (1.8-2.4)
[2022-04-01 11:38] LABS: CREATININE 5.7 mg/dL (0.55-1.3)
[2022-04-01 11:39] LABS: BILIRUBIN,TOTAL 0.7 mg/dL (0.2-1); PHOSPHOROUS 5.2 mg/dL (2.5-4.9); TOT PROT 8.2 g/dl (6.4-8.2)
[2022-04-01] MEDS: CEFTAZIDIME/AVIBACTAM 0.94 GM in DEXTROSE 5%-WATER - 100 ML IVPB SCH ×2 (12:39→23:00)
[2022-04-01] MEDS ORDERED: HEPARIN NA (PORCINE) 5,000 UNITS/ML 1ML VIAL ONE (15:42)
[2022-04-01] MEDS ORDERED: LIDOCAINE HCL 1%, 10 MG/ML (20ML VIAL) ONE (15:42)
[2022-04-01] MEDS ORDERED: ACETAMINOPHEN 1000 MG/100 ML BAG IVPB PRN (16:40)
[2022-04-01] MEDS ORDERED: MIDAZOLAM HCL 2 MG/2 ML SINGLE DOSE VIAL ONE (18:23)
[2022-04-01] MEDS ORDERED: LIDOCAINE HCL 1%, 10 MG/ML (20ML VIAL) NR ONE (18:37)
[2022-04-01] MEDS: ATORVASTATIN CA 40 MG TABLET (FP) GT SCH (22:59)
[2022-04-02] MEDS ORDERED: ACETAMINOPHEN 1000 MG/100 ML BAG IVPB PRN (00:43)
[2022-04-02] MEDS ORDERED: FENTANYL PATCH WASTE TD PRN (00:43)
[2022-04-02] MEDS ORDERED: TRIMETHOBENZAMIDE HCL 200MG/2ML INJ IM PRN (00:43)
[2022-04-02] MEDS ORDERED: EPOETIN ALFA-EPBX 10,000 UNIT/ML VIAL IVPUSH ONE (09:00)
[2022-04-02 09:40] LABS: BASO % 0.5 % (0-2.0); EOS % 10.5 % (0-4.5); HEMATOCRIT 25.7 % (35.4-49); HEMOGLOBIN 8.1 GM/dL (11.7-16.9); LYMPH % 18.1 % (8-40); MCH 25.6 pg (25.7-33.7); MCHC 31.6 g/dl (32.0-35.9); MEAN CELL VOLUME 80.9 fl (80-96); MEAN PLT VOLUME 6.9 fl (7.5-11.1); NEUT % 62.9 % (42.8-82.8); PLATELET COUNT 368 10^3/uL (134-434); RBC 3.18 M/mm3 (4.00-5.60); RDW 19.4 % (11.9-15.9); WHITE BLOOD COUNT 8.1 K/mm3 (4.0-10.0)
[2022-04-02 10:00] LABS: BLOOD UREA NITROGEN 76.1 mg/dL (7-18); CALCIUM 9.6 mg/dL (8.5-10.1); MAGNESIUM 2.7 mg/dL (1.8-2.4)
[2022-04-02 10:02] LABS: CREATININE 6.3 mg/dL (0.55-1.3)
[2022-04-02] MEDS: MIDODRINE HCL 5 MG TABLET PEG SCH ×3 (12:21→18:15)
[2022-04-02] MEDS: BANATROL PLUS POWDER PACKET GT SCH ×2 (12:21→22:18)
[2022-04-02] MEDS: CARVEDILOL 3.125 MG TABLET (FP) GT SCH ×2 (12:21→22:19)
[2022-04-02] MEDS: VITAMIN B COMP W-C 1 EA TABLET (NEPHRO-VITE) GT SCH (12:21)
[2022-04-02] MEDS: AMINO ACIDS/PROTEIN HYDROLYS 30 ML LIQUID.PKT GT SCH ×3 (12:21→18:15)
[2022-04-02] MEDS: CEFTAZIDIME/AVIBACTAM 0.94 GM in DEXTROSE 5%-WATER - 100 ML IVPB SCH ×2 (12:24→22:19)
[2022-04-02] MEDS: HEPARIN NA (PORCINE) 5,000 UNITS/ML 1ML VIAL SQ SCH ×2 (14:55→22:19)
[2022-04-02] MEDS ORDERED: levETIRAcetam 500 MG/5 ML ORAL SOLUTION (UNIT-DOSE CUPS) GT SCH (18:00)
[2022-04-02] MEDS ORDERED: ATORVASTATIN CA 40 MG TABLET (FP) GT SCH (22:00)
[2022-04-03] MEDS: HEPARIN NA (PORCINE) 5,000 UNITS/ML 1ML VIAL SQ SCH ×2 (06:37→15:18)
[2022-04-03] MEDS: AMINO ACIDS/PROTEIN HYDROLYS 30 ML LIQUID.PKT GT SCH ×3 (09:04→17:21)
[2022-04-03] MEDS ORDERED: SODIUM CHLORIDE 250 ML IV PRN (09:42)
[2022-04-03] MEDS: MIDODRINE HCL 5 MG TABLET PEG SCH ×3 (13:05→19:03)
[2022-04-03] MEDS: CARVEDILOL 3.125 MG TABLET (FP) GT SCH (13:05)
[2022-04-03] MEDS: VITAMIN B COMP W-C 1 EA TABLET (NEPHRO-VITE) GT SCH (13:05)
[2022-04-03] MEDS: CEFTAZIDIME/AVIBACTAM 0.94 GM in DEXTROSE 5%-WATER - 100 ML IVPB SCH (13:06)
[2022-04-03] MEDS: BANATROL PLUS POWDER PACKET GT SCH (13:28)
[2022-04-03] MEDS ORDERED: SCOPOLAMINE HYDROBROMIDE 1 PATCH PATCH.TD72 TD SCH (18:15)
[2022-04-03 19:12] VITALS: BP 129/60; TEMP 97.7
[2022-04-03 20:41] VITALS: PULSE 80
[2022-04-03] MEDS ORDERED: fentaNYL 75mcg/hr PATCH.TD72 TD SCH (21:00)
[2022-04-04] MEDS ORDERED: EPOETIN ALFA-EPBX 20,000 UNIT/ML VIAL IVPUSH ONE (09:42)
== END 2022-04-03 21:53 | DRG 720 ==
LOC: JASUSAT 12:48 → UNDOADMOB 16:58 → JASUSAT 16:58 → JERBED 16:58 → J5S 21:20 → JERBED 21:20 → J5S 21:20 → JASUSAT 03-21 13:50
PROVIDERS: ADMIT Internal Medicine
PROC: 5A1955Z Respiratory Ventilation, Greater than 96 Consecutive Hours (ICD-10-PCS; principal; 2022-03-20)
PROC: 05PYX3Z Removal of Infusion Device from Upper Vein, External Approach (ICD-10-PCS; 2022-03-20)
PROC: 06HM33Z Insertion of Infusion Device into Right Femoral Vein, Percutaneous Approach (ICD-10-PCS; 2022-03-21)
PROC: B54BZZA Ultrasonography of Right Lower Extremity Veins, Guidance (ICD-10-PCS; 2022-03-21)
PROC: 5A1D70Z Performance of Urinary Filtration, Intermittent, Less than 6 Hours Per Day (ICD-10-PCS; 2022-03-21)
PROC: 5A1D70Z Performance of Urinary Filtration, Intermittent, Less than 6 Hours Per Day (ICD-10-PCS; 2022-03-24)
PROC: 5A1D70Z Performance of Urinary Filtration, Intermittent, Less than 6 Hours Per Day (ICD-10-PCS; 2022-03-26)
PROC: 5A1D70Z Performance of Urinary Filtration, Intermittent, Less than 6 Hours Per Day (ICD-10-PCS; 2022-03-28)
PROC: 0JH63XZ Insertion of Tunneled Vascular Access Device into Chest Subcutaneous Tissue and Fascia, Percutaneous Approach (ICD-10-PCS; 2022-04-01)
PROC: 05H533Z Insertion of Infusion Device into Right Subclavian Vein, Percutaneous Approach (ICD-10-PCS; 2022-04-01)
PROC: B516ZZA Fluoroscopy of Right Subclavian Vein, Guidance (ICD-10-PCS; 2022-04-01)
PROC: 5A1D70Z Performance of Urinary Filtration, Intermittent, Less than 6 Hours Per Day (ICD-10-PCS; 2022-04-02)
DX: A41.59 Other Gram-negative sepsis (principal); J96.20 Acute and chronic respiratory failure, unspecified whether with hypoxia or hypercapnia; L89.154 Pressure ulcer of sacral region, stage 4; G93.1 Anoxic brain damage, not elsewhere classified; I12.0 Hypertensive chronic kidney disease with stage 5 chronic kidney disease or end stage renal disease; N18.6 End stage renal disease; Z93.1 Gastrostomy status; Z99.81 Dependence on supplemental oxygen; K21.9 Gastro-esophageal reflux disease without esophagitis; E78.5 Hyperlipidemia, unspecified; D64.9 Anemia, unspecified; G40.909 Epilepsy, unspecified, not intractable, without status epilepticus; D72.829 Elevated white blood cell count, unspecified; Z99.2 Dependence on renal dialysis; Y83.8 Other surgical procedures as the cause of abnormal reaction of the patient, or of later complication, without mention of misadventure at the time of the procedure; Z86.73 Personal history of transient ischemic attack (TIA), and cerebral infarction without residual deficits; Z95.1 Presence of aortocoronary bypass graft; Z86.19 Personal history of other infectious and parasitic diseases; Z66 Do not resuscitate
CPT/HCPCS: 36415; 71045-TC-FY; 76000-TC-FY; 80048; 80053; 83605; 83735; 84100; 84484; 85025; 85610; 85730; 86803; 86850; 86900; 86901; 87040; 87070; 87184; 87186; 87205; 87324; 87340; 87449; 93005; 93010; 93306-TC; 94002; 94640; 99285-25; C9803-CS; J1644; Q5106; U0003; U0005

== ENCOUNTER 2023-05-29 13:07 | Emergency (ER) | payer OTHER ==
[2023-05-29] MEDS ORDERED: NALOXONE HCL 0.4 MG/ML VIAL ONE (14:32)
[2023-05-29 15:01] VITALS: BP 124/79; BMI 29.9
[2023-05-29 15:37] LABS: BASO % 0.6 % (0-2.0); EOS % 6.4 % (0-4.5); HEMATOCRIT 29.9 % (35.4-49); LYMPH % 30.1 % (8-40); MCH 28.9 pg (25.7-33.7); MCHC 33.3 g/dl (32.0-35.9); MEAN CELL VOLUME 86.8 fl (80-96); MEAN PLT VOLUME 7.8 fl (7.5-11.1); MONO % 8.8 % (3.8-10.2); NEUT % 54.1 % (42.8-82.8); PLATELET COUNT 252 10^3/uL (134-434); RBC 3.44 M/mm3 (4.00-5.60); RDW 13.5 % (11.9-15.9); WHITE BLOOD COUNT 5.9 K/mm3 (4.0-10.0)
[2023-05-29 15:49] LABS: INR 1.06 (0.83-1.09); PROTHROMBIN TIME (PATIENT) 12.3 SEC (9.7-13.0)
[2023-05-29 15:51] LABS: ACTIVATED PTT 36.5 SECONDS (25.2-36.5)
[2023-05-29 16:09] LABS: POTASSIUM 3.4 mmol/L (3.5-5.1)
[2023-05-29 16:14] LABS: CALCIUM 9.6 mg/dL (8.5-10.1)
[2023-05-29 16:15] LABS: BLOOD UREA NITROGEN 42.4 mg/dL (7-18)
[2023-05-29 16:16] LABS: ALBUMIN 3.2 g/dl (3.4-5.0)
[2023-05-29 16:18] LABS: CREATININE 3.6 mg/dL (0.55-1.3)
[2023-05-29 16:19] LABS: BILIRUBIN,TOTAL 1.1 mg/dL (0.2-1)
[2023-05-29 16:20] LABS: TOT PROT 7.5 g/dl (6.4-8.2)
[2023-05-29 21:13] VITALS: RESP 20
[2023-05-29 21:14] VITALS: PULSE 87
== END 2023-05-29 23:42 ==
LOC: JER 13:07
DX: D64.9 Anemia, unspecified (principal)
CPT/HCPCS: 36415; 80053; 85025; 85610; 85730; 86850; 86900; 86901; 93005; 93010; 99284-25